=== PATIENT | female | born 1960 | race Caucasian/White ===

== ENCOUNTER → 2019-03-31 07:49 | Outpatient (CLI) | payer OTHER, SELFPAY ==
--- NOTE | 2019-03-31 07:50 | BI_ITS ---
MAMMOGRAPHY - BILATERAL SCREENING REASON FOR EXAM: Female, 58 years old. Routine annual screening examination. PERTINENT HISTORY: Grandmother with breast cancer. TECHNIQUE: Digital bilateral breast priscila (3D mammographic acquisition) in the CC and MLO projections. 2-D mediolateral oblique (MLO) and craniocaudad (CC) views of both breasts were obtained. CAD: Full Field Digital Mammography with Computer Added Detection was performed. COMPARISON: Comparison is made with prior outside examination dated May 05, 2016 FINDINGS: Breast Composition: There are scattered areas of fibroglandular density. There are no dominant masses or suspicious calcifications. Stable densely calcified right retroareolar nodular density. This is in keeping with a calcifying fibroadenoma. No other significant abnormalities are identified. There has been no significant change since the prior study. BI/SCREEN MAMM (CAD) W/PRISCILA BILAT IMPRESSION: Stable bilateral screening mammogram. Yearly follow-up mammogram recommended. (A) ASSESSMENT CATEGORY: BIRADS Category 2: Benign. A letter regarding these results will be sent to the patient by the facility within 30 days. Approximately 10% of breast cancers are not detected by mammography. A normal mammogram should not delay biopsy of a clinically suspicious abnormality. [id number] Electronically Signed: Thaddeus May, at 9:07 EST , Service support ,
[2019-04-03 16:08] LABS: HPV Genotype 16, Aptima Negative (Negative)
[2019-04-03 17:03] LABS: HPV APTIMA, High Risk Positive (Negative); HPV Genotype 18,45 Aptima Negative (Negative)
== END ==
PROVIDERS: Family Provider Family Medicine; PCP Internal Medicine; Referring Provider Obstetrics & Gynecology; Visit Provider Obstetrics & Gynecology
DX: Z12.31 Encounter for screening mammogram for malignant neoplasm of breast (principal); Z12.4 Encounter for screening for malignant neoplasm of cervix
CPT/HCPCS: 77063; 77067; 87624; 88175; G0145

== ENCOUNTER 2019-09-23 07:25 | Day surgery (SDC) | payer OTHER, SELFPAY ==
[2019-03-31 08:53] VITALS: BMI 37.0
--- NOTE | 2019-09-23 | COLBX_PTH ---
PATIENT: ALFONSO VERDUGO LOC: EN U#:[id number] AGE/SX: 59/F ROOM: RE09/23/[address]: Dr. Oh Infante MD : 1960 BED: DIS: 09/23/2019 SPEC #: [id number] RECD: 09/23/19 13:03 STATUS: CASS ERICA #: [id number] MATA: 09/23/19 00:[address]: Oh Infante DEPT: SURGICAL PATHOLOGY RECD BY: Otilio Mera ENTERED: 09/23/19 13:04 SP TYPE: COLON BX OT DR: Dr. Mirian Payton MD Tissues: A - Sigmoid colon biopsy B - Rectum, NOS Procedures: Surgery Specimen Level IV HEADER OPERATION: Colonoscopy - open access (MAC) PRE-OP DIAGNOSIS: Screening TISSUE SUBMITTED: A - Proximal sigmoid polyp, B - Proximal rectum polyp MICROSCOPIC DIAGNOSIS A. Proximal sigmoid colon polyp, biopsy: Tubular adenoma. B. Proximal rectal polyp, biopsy: Fragments of tubular adenoma. AM:denys 09/24/19 MICROSCOPIC DESCRIPTION Slides are reviewed. GROSS DESCRIPTION A - Received in fixative is one container labeled with the patient's name and designated proximal sigmoid polyp. The specimen consists of a dumont-pink polyp measuring 0.5 x 0.5 x 0.3 cm. The specimen is totally submitted in one cassette. B - Received in fixative is one container labeled with the patient's name and designated proximal rectal polyp. The specimen consists of two irregular fragments of light dumont soft tissue that in aggregate measure 0.7 x 0.3 x 0.1 cm. The specimen is totally submitted in one cassette. / SJ:denys 09/23/19 TC:5 CPT: 14469 x2
[2019-09-23 07:42] VITALS: BP 120/65; PULSE 68; RESP 15; TEMP 36.3; O2SAT 100; BMI 32.3
[2019-09-23] MEDS: Lactated Ringers 1,000 ML 100 ML IV (07:54)
--- NOTE | 2019-09-23 08:47 | PCM.HP.STD ---
Problem List (1) Screening for intestinal cancer Status: Acute History of Present Illness Date of Admission: 09/23/19 The patient is a 59 year old F who presents for screening colonoscopy today. She has never had a previous exam. She denies bright red blood per rectum or melena. There is no family history of colon cancer. She otherwise enjoys good health. Past Medical History Medical History: Medical History (Last Reviewed 03/31/19 @ 08:48 by Pauly Montgomery) Depression with anxiety (Acute) F41.8 Goiter (Acute) E04.9 Allergies Penicillins Adverse Reaction (Verified 09/23/19 07:41) Rash Sulfa (Sulfonamide Antibiotics) Adverse Reaction (Verified 09/23/19 07:41) Rash Home Medications: Ambulatory Orders Medication Instructions Recorded Levothyroxine Sodium 88 mcg PO DAILY 01/29/14 venlafaxine 75 mg capsule,extended 75 mg PO DAILY #30 cap 03/31/19 release 24 hr Surgical History: Surgical History (Last Updated 03/31/19 @ 08:49 by Pauly Montgomery) S/P dilation and curettage Z98.890 x2 S/P gastric surgery Z98.890 sleeve Status post breast reduction Z98.890 s/p ablation Smoking Status: Never smoker Tobacco Use: Non-smoker Review of Systems Constitutional: Denies: Chills, Fever Cardiovascular: Denies: Chest Pain Respiratory: Denies: Cough, Shortness of Breath Gastrointestinal: Denies: Abdominal Pain, Melena Endocrine: Denies: Change in Body Habitus VTE Information - Inpt Only VTE Present on Admission: No Patient Problems: Active and Suspected Problems (Last Reviewed 03/31/19 @ 08:48 by Pauly Montgomery) Screening for intestinal cancer (Acute) - Physical Exam Vitals/I&O's: Vital Signs Temp Pulse Resp BP Pulse Ox 97.3 F L 68 15 120/65 100 09/23/19 07:42 09/23/19 07:42 09/23/19 07:42 09/23/19 07:42 09/23/19 07:42 Oxygen Delivery Method Room Air Weight: 200 lb 6.4 oz Body Mass Index (BMI) 32.3 General: Alert, Oriented x3, Cooperative, No apparent distress HEENT: Atraumatic Lungs: Clear to auscultation, Normal air movement Cardiovascular: Regular rate, Regular Rhythm Abdomen: Bowel Sounds Present, Soft, Non Tender Extremities: No Calf Tenderness Psych/Mental Status: Normal Affect Current Medications Lactated Ringer's () 1,000 mls @ 100 mls/hr IV .Q10H SUKHDEV Last Admin: 09/23/19 07:54 Dose: 100 mls/hr Documented by: Assessment/Plan All Active Problems (Last Reviewed 03/31/19 @ 08:48 by Pauly Montgomery) Screening for intestinal cancer (Acute) HPV test positive (Acute) Depression with anxiety (Acute) Goiter (Acute) I recommended the patient a screening colonoscopy with possible biopsy or polypectomy is indicated. She is aware of the technique, benefit, risk, alternatives. She presents via open access today. We will proceed as noted. Oh Infante M.D., F.A.C.S. Procedure Criteria Procedure Type: Elective COVID Risk Discussion: The surgeon/proceduralist and patient have discussed in detail the risk of exposure to and/or potential harm posed by the COVID-19 virus with having a surgery/procedure at this time versus the risk of delaying the surgery/procedure. It is not possible to know either the risk of delaying the surgery or procedure or chance of getting an infection with perfect accuracy, but a joint decision was made between the patient and the surgeon/proceduralist to proceed at this time with the scheduled surgery/procedure as indicated on the consent form.
[2019-09-23 09:24] VITALS: BP 120/65; BP 98/58; PULSE 57; RESP 15; TEMP 36.1; O2SAT 99
--- NOTE | 2019-09-23 09:25 | OP.COLON_ITS ---
Patient Name: Nuvia Rubio Procedure Date: 09/23/2019 8:46 AM Date of : 1960 Age: 59 Procedure: Colonoscopy Indications: Screening for colorectal malignant neoplasm Providers: Oh Infante MD Referring MD: Mirian Payton Medicines: See the Anesthesia note for documentation of the administered medications Patient Profile: Last Colonoscopy: none. The patient's first colonoscopy is today. Complications: No immediate complications. Procedure: Pre-Anesthesia Assessment: - Prior to the procedure, a History and Physical was performed, and patient medications and allergies were reviewed. The patient's tolerance of previous anesthesia was also reviewed. The risks and benefits of the procedure and the sedation options and risks were discussed with the patient. All questions were answered, and informed consent was obtained. Prior Anticoagulants: The patient has taken no previous anticoagulant or antiplatelet agents. ASA Grade Assessment: I - A normal, healthy patient. After reviewing the risks and benefits, the patient was deemed in satisfactory condition to undergo the procedure. After I obtained informed consent, the scope was passed under direct vision. Throughout the procedure, the patient's blood pressure, pulse, and oxygen saturations were monitored continuously. The pediatric colonoscope was introduced through the anus and advanced to the cecum, identified by appendiceal orifice and ileocecal valve. The colonoscopy was performed without difficulty. The patient tolerated the procedure well. The quality of the bowel preparation was adequate to identify polyps. The ileocecal valve and the appendiceal orifice were photographed. Scope In: 8:59:47 AM Scope Withdrawal Time 0 hours 15 minutes 13 seconds Scope Out: 9:20:09 AM Total Procedure Duration Time 0 hours 20 minutes 22 seconds Findings: Hemorrhoids were found on perianal exam. A 7 mm polyp was found in the proximal sigmoid colon. The polyp was sessile. The polyp was removed with a hot snare. Resection and retrieval were complete. A 5 mm polyp was found in the rectum. The polyp was sessile. The polyp was removed with a hot snare. Resection and retrieval were complete. Scattered diverticula were found in the sigmoid colon. Impression: - Hemorrhoids found on perianal exam. - One 7 mm polyp in the proximal sigmoid colon, removed with a hot snare. Resected and retrieved. - One 5 mm polyp in the rectum, removed with a hot snare. Resected and retrieved. - Diverticulosis in the sigmoid colon. Recommendation: - Discharge patient to home. - Resume previous diet. - Continue present medications. - Repeat colonoscopy in 5 years for surveillance based on pathology results. - Telephone my office for pathology results in 1 week. Procedure Code(s): --- Professional --- 71705, Colonoscopy, flexible; with removal of tumor(s), polyp(s), or other lesion(s) by snare technique Diagnosis Code(s): --- Professional --- Z12.11, Encounter for screening for malignant neoplasm of colon K64.9, Unspecified hemorrhoids D12.5, Benign neoplasm of sigmoid colon K62.1, Rectal polyp K57.30, Diverticulosis of large intestine without perforation or abscess without bleeding CPT copyright 2017 [employer]. All rights reserved. The codes documented in this report are preliminary and upon doll wigs hackler review may be revised to meet current compliance requirements. Oh Infante MD 09/23/2019 9:25:15 AM This report has been signed electronically. Number of Addenda: 0 Note Initiated On: 09/23/2019 8:46 AM
--- NOTE | 2019-09-23 09:25 | OP.CCLET_ITS ---
09/23/2019 Mirian Payton Re : Colonoscopy procedure for Nuvia Rubio Dear Tata This procedure was performed on Monday, September 23, 2019. My impressions and recommendations are as follows: Impressions : - Hemorrhoids found on perianal exam. - One 7 mm polyp in the proximal sigmoid colon, removed with a hot snare. Resected and retrieved. - One 5 mm polyp in the rectum, removed with a hot snare. Resected and retrieved. - Diverticulosis in the sigmoid colon. Recommendations : - Discharge patient to home. - Resume previous diet. - Continue present medications. - Repeat colonoscopy in 5 years for surveillance based on pathology results. - Telephone my office for pathology results in 1 week. My findings are described in the full procedure note, which is enclosed. If I can be of further assistance, please feel free to contact me at Doctor phone number(s): Work: . Sincerely, Oh Infante MD 09/23/2019 9:25:15 AM This report has been signed electronically.
[2019-09-23 09:29] VITALS: BP 114/48; BP 120/65; PULSE 55; RESP 16; O2SAT 99
[2019-09-23 09:36] VITALS: BP 110/61; BP 120/65; PULSE 55; RESP 16; O2SAT 100
[2019-09-23 09:37] VITALS: BP 110/60; BP 120/65; PULSE 53; RESP 16; TEMP 36.1; O2SAT 100
[2019-09-23 10:15] VITALS: BP 120/65
== END 2019-09-23 10:25 | disposition home or self-care (01) ==
LOC: EN 07:25 → AC 07:26
PROVIDERS: Anesthesiology; PCP Internal Medicine; Referring Provider Internal Medicine; Visit Provider Surgery
PROC: 0DJD8ZZ Inspection of Lower Intestinal Tract, Via Natural or Artificial Opening Endoscopic (ICD-10-PCS; CPT 45378; principal; 2019-09-23 08:25)
DX: Z12.11 Encounter for screening for malignant neoplasm of colon (principal); D12.5 Benign neoplasm of sigmoid colon; D12.8 Benign neoplasm of rectum; K57.30 Diverticulosis of large intestine without perforation or abscess without bleeding; K64.9 Unspecified hemorrhoids; E04.9 Nontoxic goiter, unspecified; Z20.828 Contact with and (suspected) exposure to other viral communicable diseases
CPT/HCPCS: 45385; 87635; 88305; 94799; J7120; U0003

== ENCOUNTER → 2020-08-31 13:21 | Outpatient (CLI) | payer OTHER, SELFPAY ==
[2020-07-08 11:47] VITALS: BMI 32.3
--- NOTE | 2020-08-31 13:22 | BI_ITS ---
MAMMOGRAPHY - BILATERAL SCREENING REASON FOR EXAM: Female, 60 years old. Routine annual screening examination. PERTINENT HISTORY: Grandmother with breast cancer. Remote bilateral breast reduction surgery. TECHNIQUE: Digital bilateral breast priscila (3D mammographic acquisition) in the CC and MLO projections. 2-D mediolateral oblique (MLO) and craniocaudad (CC) views of both breasts were obtained. CAD: Full Field Digital Mammography with Computer Added Detection was performed. COMPARISON: Comparison is made with prior study dated 03/31/2019. FINDINGS: Breast Composition: The breasts are heterogeneously dense, which may obscure small masses. There are no dominant masses or suspicious calcifications. Stable densely calcified right retroareolar areolar nodule in keeping with calcifying fibroadenoma. Small benign-appearing bilateral axillary lymph nodes. No other significant abnormalities are identified. There has been no significant change since the prior study. BI/SCRN MAMM (CAD)W/PRISCILA BILAT IMPRESSION: Stable bilateral screening mammogram. Yearly follow-up mammogram recommended. (A) ASSESSMENT CATEGORY: BIRADS Category 2: Benign. A letter regarding these results will be sent to the patient by the facility within 30 days. Approximately 10% of breast cancers are not detected by mammography. A normal mammogram should not delay biopsy of a clinically suspicious abnormality. [id number] Electronically Signed: Thaddeus May MD at 14:01 EDT , Service support ,
[2020-09-07 03:07] LABS: HPV Genotype 16, Aptima Negative (Negative)
[2020-09-07 08:18] LABS: HPV APTIMA, High Risk Positive (Negative); HPV Genotype 18,45 Aptima Negative (Negative)
== END ==
PROVIDERS: PCP Internal Medicine; Referring Provider Obstetrics & Gynecology; Visit Provider Obstetrics & Gynecology
DX: Z12.31 Encounter for screening mammogram for malignant neoplasm of breast (principal); Z12.4 Encounter for screening for malignant neoplasm of cervix; Z80.3 Family history of malignant neoplasm of breast
CPT/HCPCS: 77063; 77067; 87624; 88175; G0145

== ENCOUNTER → 2021-01-11 | Outpatient (CLI) | payer OTHER, SELFPAY | END | disposition home or self-care (01) | LOC: LABSPEC 16:03 | PROVIDERS: PCP Internal Medicine; Visit Provider Otolaryngology Otolaryngology/Facial Plastic Surgery | DX: Z20.822 Contact with and (suspected) exposure to COVID-19 (principal) | CPT/HCPCS: 87635; U0005; U0003 ==

== ENCOUNTER → 2021-09-30 | Outpatient (CLI) | payer OTHER, SELFPAY ==
--- NOTE | 2021-09-30 10:34 | BI_ITS ---
MAMMOGRAPHY - BILATERAL SCREENING REASON FOR EXAM: Female, 61 years old. Routine annual screening examination. PERTINENT HISTORY: Grandmother with breast cancer. Remote history of bilateral breast reduction surgery. TECHNIQUE: Digital bilateral breast priscila (3D mammographic acquisition) in the CC and MLO projections. 2-D mediolateral oblique (MLO) and craniocaudad (CC) views of both breasts were obtained. CAD: Full Field Digital Mammography with Computer Added Detection was performed. COMPARISON: Screening mammogram from 08/31/2020, 03/31/2019. FINDINGS: Breast Composition: The breasts are heterogeneously dense, which may obscure small masses. Finding 1: There is an asymmetry in the right inferior breast, posterior depth near the axilla approximately 14 cm posterior to the nipple seen only on MLO views and best seen on 3-D priscila. Further assessment with spot compression views if possible and ultrasound if needed recommended. Finding 2: There is an asymmetry in the right central slightly inferior breast, posterior depth approximately 11 cm posterior to the nipple seen only on MLO views and best seen on 3-D priscila. Further assessment with spot compression views if possible and ultrasound if needed recommended. Stable benign-appearing axillary lymph nodes. Stable scattered benign-appearing calcifications. No other significant abnormalities are identified. BI/SCRN MAMM (CAD)W/PRISCILA BILAT IMPRESSION: Further imaging evaluation recommended, as described above. (E) ASSESSMENT CATEGORY: BIRADS Category 0: Incomplete. Need additional imaging evaluation. A letter regarding these results will be sent to the patient by the facility within 30 days. Approximately 10% of breast cancers are not detected by mammography. A normal mammogram should not delay biopsy of a clinically suspicious abnormality. Electronically Signed: Yung Price, at 8:47 EDT ,
[2021-10-07 11:34] LABS: HPV APTIMA, High Risk Positive (Negative)
== END | disposition home or self-care (01) ==
PROVIDERS: PCP Internal Medicine; Referring Provider Obstetrics & Gynecology; Visit Provider Obstetrics & Gynecology
DX: Z12.31 Encounter for screening mammogram for malignant neoplasm of breast (principal); Z12.4 Encounter for screening for malignant neoplasm of cervix
CPT/HCPCS: 77063; 77067; 87624; 88175; G0145

== ENCOUNTER → 2021-10-07 | Outpatient (CLI) | payer OTHER, SELFPAY ==
--- NOTE | 2021-10-07 09:23 | BI_ITS ---
MAMMOGRAPHY - UNILATERAL DIAGNOSTIC: RIGHT BREAST REASON FOR EXAM: Female, 61 years old. Abnormal screening mammogram. PERTINENT HISTORY: Grandmother with breast cancer. History of bilateral breast reduction surgery. TECHNIQUE: Compression spot radiographs of the right breast were obtained. CAD: Full Field Digital Mammography with Computer Added Detection was performed. COMPARISON: Comparison is made with prior study 09/30/2021. FINDINGS: Breast Composition: The breasts are heterogeneously dense, which may obscure small masses. There are no dominant masses or suspicious calcifications. No other significant abnormalities are identified. BI/DIAG MAMM W/CAD, UNILAT IMPRESSION: Negative unilateral diagnostic mammogram. Yearly followup mammogram recommended. (A) ASSESSMENT CATEGORY: BIRADS Category 1: Negative. A letter regarding these results will be sent to the patient by the facility within 30 days. Approximately 10% of breast cancers are not detected by mammography. A normal mammogram should not delay biopsy of a clinically suspicious abnormality. Electronically Signed: Thaddeus May MD at 10:07 EDT ,
== END | disposition home or self-care (01) ==
LOC: OPBI 09:22
PROVIDERS: PCP Internal Medicine; Visit Provider Obstetrics & Gynecology
DX: R92.8 Other abnormal and inconclusive findings on diagnostic imaging of breast (principal)
CPT/HCPCS: 77065

== ENCOUNTER → 2022-10-05 | Outpatient (CLI) | payer OTHER, SELFPAY ==
[2022-10-11 15:08] LABS: HPV APTIMA, High Risk Positive (Negative)
== END | disposition home or self-care (01) ==
PROVIDERS: PCP Internal Medicine; Visit Provider Obstetrics & Gynecology
DX: Z12.4 Encounter for screening for malignant neoplasm of cervix (principal)
CPT/HCPCS: 87624; 88175; G0145

== ENCOUNTER → 2022-11-23 | Outpatient (CLI) | payer OTHER, SELFPAY ==
--- NOTE | 2022-11-23 10:13 | BI_ITS ---
MAMMOGRAPHY - BILATERAL SCREENING REASON FOR EXAM: Female, 62 years old. Routine annual screening examination. PERTINENT HISTORY: Non-contributory. TECHNIQUE: Digital bilateral breast priscila (3D mammographic acquisition) in the CC and MLO projections. 2-D mediolateral oblique (MLO) and craniocaudad (CC) views of both breasts were obtained. CAD: Full Field Digital Mammography with Computer Added Detection was performed. COMPARISON: Comparison is made with prior study done September 30, 2021 and October 07, 2021. FINDINGS: Breast Composition: The breasts are heterogeneously dense, which may obscure small masses. There are no dominant masses or suspicious calcifications. Stable densely calcified nodule in the retroareolar region of the right breast. No other significant abnormalities are identified. There has been no significant change since the prior study. BI/SCRN MAMM (CAD)W/PRISCILA BILAT IMPRESSION: Stable bilateral screening mammogram. Yearly follow-up mammogram recommended. (A) ASSESSMENT CATEGORY: BIRADS Category 2: Benign. A letter regarding these results will be sent to the patient by the facility within 30 days. Approximately 10% of breast cancers are not detected by mammography. A normal mammogram should not delay biopsy of a clinically suspicious abnormality. [id number] Electronically Signed: Thaddeus May MD at 12:24 EDT ,
== END | disposition home or self-care (01) ==
LOC: OPBI 10:12
PROVIDERS: PCP Internal Medicine; Referring Provider Obstetrics & Gynecology; Visit Provider Obstetrics & Gynecology
DX: Z12.31 Encounter for screening mammogram for malignant neoplasm of breast (principal)
CPT/HCPCS: 77063; 77067

== ENCOUNTER → 2022-12-19 | Outpatient (CLI) | payer OTHER, SELFPAY ==
[2022-12-19 10:11] LABS: Absolute Lymphocyte Count 1.93 X10^3/uL (0.83-4.51); Absolute Neutrophil Count 2.8 X10^3/uL (2.0-7.7); Basophil# 0.04 X10^3/uL; Basophil% 0.8 % (0-1); Eosinophils% 1.9 % (0-5); Hematocrit 43.9 % (37-47); Hemoglobin 13.8 g/dL (12.0-15.0); Lymphocyte # 1.93 X10^3/ul (0.83-4.51); Lymphocyte % 36.9 % (19-41); Mean Corp Hgb Conc 31.4 g/dL (32-36); Mean Corpuscular Hgb 27.4 pg (27.0-32.0); Mean Corpuscular Volume 87.1 fL (81-99); Mean Platelet Vol. 10.4 fl (6.2-12.0); Monocyte# 0.34 X10^3/uL; Monocyte% 6.5 % (0-10); NRBC Flagged by Analyzer 0 % (0-5); Neutrophil # 2.81 X10^3/uL (2.7-7.7); Neutrophil % 53.7 % (47-70); Platelet Count 318 K/mm3 (150-450); RBC Distribution Width SD 48.2 fl (35.1-43.9); Red Blood Count 5.04 M/mm3 (4.2-5.4); White Blood Count 5.2 K/mm3 (4.4-11.0)
--- NOTE | 2022-12-19 10:18 | EKG12_ITS ---
Test Reason : PRE-OP Blood Pressure : / mmHG Vent. Rate : 074 BPM Atrial Rate : 074 BPM P-R Int : 144 ms QRS Dur : 096 ms QT Int : 400 ms P-R-T Axes : 009 -50 044 degrees QTc Int : 444 ms Normal sinus rhythm Left anterior fascicular block Abnormal ECG Confirmed by MAYELIN MA, USHA ([id number]), scientific publications editor KIM VARGAS ([id number]) on 12/19/2022 1:59:16 PM Also confirmed by EDMOND MA, NANO ([id number]), scientific publications editor KIM VARGAS ([id number]) on 12/19/2022 2:01:28 PM Referred By: Rose Marie Brush Confirmed By:NANO PRUITT MD
[2022-12-19 10:30] LABS: Hemoglobin A1c 5.6 % (3.8-5.6)
[2022-12-19 10:36] LABS: ALB/GLOB Ratio 0.8 RATIO (0.9-2.4); AST(SGOT) 11 U/L (15-37); Alanine Aminotransfer ALT/SGPT 23 U/L (13-56); Albumin, Serum 3.6 g/dL (3.2-5.0); Alkaline Phosphatase 111 U/L (45-117); Anion Gap 3 (5-15); BUN 13 mg/dL (7-18); BUN/Creat Ratio 17.6 RATIO (10-20); Calcium,Total 8.7 mg/dL (8.5-10.1); Chloride 107 mmol/L (98-107); Creatinine, Serum 0.74 mg/dL (0.55-1.02); EST Glomerular Filtration Rate 85 mL/min (>60); Est Glom Filt Rate - Afr Amer 103 mL/min (>60); Globulin 4.3 g/dL (2.2-4.2); Glucose 94 mg/dL (74-106); Potassium 3.9 mmol/L (3.5-5.1); Protein, Total 7.9 g/dL (6.4-8.2); Sodium Level 138 mmol/L (136-145); T4 Free Direct 1.55 ng/dL (0.76-1.46); Thyroid Stim Hormone (TSH) 1.45 uIU/mL (0.358-3.74)
[2022-12-19 10:49] LABS: Vitamin D,25 Hydroxy 31.4 ng/mL
== END | disposition home or self-care (01) ==
LOC: PSN 10:17
PROVIDERS: PCP Internal Medicine; Referring Provider Obstetrics & Gynecology; Visit Provider Obstetrics & Gynecology
DX: E04.9 Nontoxic goiter, unspecified (principal); I44.4 Left anterior fascicular block; Z68.37 Body mass index [BMI] 37.0-37.9, adult
CPT/HCPCS: 36415; 80053; 82306; 83036; 84439; 84443; 85025; 93005

== ENCOUNTER → 2023-02-07 | Outpatient (CLI) | payer OTHER, SELFPAY ==
--- NOTE | 2023-02-07 08:53 | ECHOD_ITS ---
Reason For Study: ABNORMAL EKG Procedure This was a 2D Doppler, Color Flow transthoracic echocardiogram. Myocardial strain analysis was performed in this exam to aid in the assessment of cardiac function. Exam performed in department. Left Ventricle Normal LV size. The estimated ejection fraction is 50 %. There is mild global hypokinesis of the left ventricle. Right Ventricle Normal RV size. Normal systolic function. Atria Normal left atrium. Normal right atrium. Mitral Valve Normal mitral valve. Tricuspid Valve Normal tricuspid valve. Aortic Valve Normal aortic valve. Trisinus/trileaflet aortic valve. Pulmonic Valve Normal pulmonic valve. Great Vessels Normal aortic root. The pulmonary artery is normal size. Normal inferior vena cava. Pericardium/Pleural No pericardial effusion. MMode/2D Measurements & Calculations LVIDd: 5.8 cm IVSd: 0.73 cm LVOT diam: 2.1 cm LVIDs: 4.2 cm LVPWd: 0.79 cm LVOT area: 3.3 cm2 RVDd: 3.4 cm FS: 27.3 % Ao root diam: 3.2 cm LAV(MOD-bp): 75.5 ml LVAd ap4: 28.6 cm2 LAV(MOD-bp) Indexed: 36.6 ml/m2 LVLd ap4: 7.2 cm LAV(MOD-sp2): 89.7 ml EDV(MOD-sp4): 95.8 ml LAV(MOD-sp4): 63.3 ml EDV(sp4-el): 96.1 ml LVAs ap4: 18.4 cm2 LVLs ap4: 6.1 cm ESV(MOD-sp4): 47.9 ml ESV(sp4-el): 47.3 ml EF(MOD-sp4): 50.0 % EF(sp4-el): 50.8 % LVAd ap2: 28.3 cm2 SV(MOD-sp4): 47.9 ml SV(MOD-sp2): 46.9 ml LVLd ap2: 7.8 cm EDV(MOD-sp2): 87.7 ml EDV(sp2-el): 87.6 ml LVAs ap2: 18.1 cm2 LVLs ap2: 6.9 cm ESV(MOD-sp2): 40.8 ml ESV(sp2-el): 40.4 ml EF(MOD-sp2): 53.5 % SV(sp4-el): 48.9 ml LA dimension(2D): 3.6 cm LA A4 area: 21.9 cm2 RA A4 area: 15.8 cm2 TAPSE: 2.5 cm Time Measurements MV dec time: 0.14 sec Doppler Measurements & Calculations MV E max casper: 89.4 cm/sec Lat Peak E' Casper: 10.6 cm/sec Med Peak E' Casper: 8.9 cm/sec MV A max casper: 82.6 cm/sec E/E' lat: 8.5 E/E' med: 10.0 MV E/A: 1.1 Ao V2 max: 182.8 cm/sec LV V1 max: 104.8 cm/sec MV dec slope: 654.2 cm/sec2 Ao max P.4 mmHg LV V1 max P.4 mmHg Ao V2 mean: 126.6 cm/sec LV V1 mean P.9 mmHg Ao mean P.3 mmHg LV V1 mean: 82.8 cm/sec Ao V2 VTI: 48.4 cm LV V1 VTI: 28.6 cm AV (velocity ratio): 0.59 JIM(I,D): 2.0 cm2 JIM(V,D): 1.9 cm2 SV(LVOT): 95.0 ml PA V2 max: 67.0 cm/sec PA max PG (full): 0.67 mmHg ECHO/Echo Complete Interpretation Summary Normal LV size. The estimated ejection fraction is 50 %. There is mild global hypokinesis of the left ventricle. Structurally normal valves. The global longitudinal strain is normal. The globa l longitudinal strain = -18.9 % (normal). Ordering Physician: JOSE ENRIQUE MCCARTHY Referring Physician: MILLIE VIERA Performed By: Mary Mares RDCS
== END | disposition home or self-care (01) ==
PROVIDERS: PCP Internal Medicine
DX: Z13.6 Encounter for screening for cardiovascular disorders (principal); R94.31 Abnormal electrocardiogram [ECG] [EKG]
CPT/HCPCS: 93306

== ENCOUNTER → 2023-03-01 | Outpatient (CLI) | payer OTHER, SELFPAY ==
--- OUTSIDE RECORDS SUMMARY | 2023-03-01 10:58 | XMS RPT_ITS | CCD ---
Author Name Unknown Address [address] [place] [address] Organization [facility] Care Team Providers Care Thread Tool Grinder Set Up Operator Name Role Phone Tata MA, Butros Primary Care Provider Tata MA, Butros Primary Care Provider Kang MA, Chete Unavailable [phone] MILLIE PAYTON MD Attending Unavailable LATOUF, MILLIE MA Consulting Unavailable LATOUF, MILLIE MA Primary Care Unavailable LATOUF, MILLIE MA Admitting Unavailable PROVIDER, UNKNOWN Consulting Unavailable PROVIDER, UNKNOWN Consulting Unavailable PROVIDER, UNKNOWN Consulting Unavailable LATOUF, BUTROS Primary Care Unavailable SHAHANA-NLIAM, CHETE Referring Unavailable SHAHANA-NLIAM, CHETE Attending Unavailable LATOUF, BUTROS Referring Unavailable LATOUF, BUTROS Primary Care Unavailable SHAHANA-NLIAM, CHETE Referring Unavailable LATOUF, BUTROS Primary Care Unavailable ROMERO MCKENNA Referring Unavailable LATOUF, BUTROS Primary Care Unavailable Allergies Allergy Classification Reported Allergen(s) Allergy Type Date of Onset Reaction(s) Facility (2 sources) Penicillins; Translations: [PENICILLINS] Drug Intolerance 6 Rash [facility] (9 sources) Sulfonamides (Antibiotic); Translations: [SULFA (SULFONAMIDE ANTIBIOTICS)] Drug Allergy 3 Rash, Itching [facility] (7 sources) Penicillins Drug Intolerance 6 Rash [facility] (1 source) Penicillin Drug Allergy [facility] (1 source) Sulfonamides (Antibiotic) Drug allergy (disorder) [facility] Medications Completed/Discontinued Medications Medication Drug Class(es) Dates Sig (Normalized) Sig (Original) acetaminophen 325 mg / HYDROcodone bitartrate 5 mg oral tablet (4 sources) Opioid Agonist Start: 11-20-2022 HYDROcodone-acetam inophen (NORCO) 5-325 mg per tablet [id number] 200 actuat albuterol 0.09 mg/actuat metered dose inhaler (1 source) beta2-Adrenergic Agonist Start: 11-28-2020 End: 08-09-2021 take 2 puff(s) by inhalation every four hours as needed for wheezing albuterol HFA (VENTOLIN HFA) 90 mcg/actuation inhaler Inhale 2 Puffs as instructed every 4 hours as needed for wheezing/shortness of breath. 18 g 0 11/28/2020 08/09/2021 Discontinued (Discontinued by another Health Care Provider) Problems Active Problems Problem Classification Problem Date Documented Date Episodic/Chronic Cardiac dysrhythmias (1 source) Tachycardia, unspecified; Translations: [Fast heart beat] Onset: 12-26-2022 Episodic Disorders of lipid metabolism (1 source) Mixed hyperlipidemia; Translations: [Mixed hyperlipidemia] 12-26-2022 Chronic Menopausal disorders (8 sources) Abnormal perimenopausal bleeding; Translations: [Excessive bleeding in the premenopausal period] Onset: 11-01-2011 11-01-2011 Chronic Other nutritional; endocrine; and metabolic disorders (1 source) Obesity caused by energy imbalance; Translations: [Other obesity due to excess calories] 12-26-2022 Chronic Other screening for suspected conditions (not mental disorders or infectious disease) (5 sources) Electrocardiogram abnormal; Translations: [Abnormal electrocardiogram [ECG] [EKG]] Onset: 12-26-2022 12-26-2022 Episodic Thyroid disorders (1 source) Hypothyroidism, unspecified; Translations: [Hypothyroidism, unspecified] Onset: 01-05-2023 Chronic Transient cerebral ischemia (3 sources) Cerebral ischemia; Translations: [Transient cerebral ischemic attack, unspecified] Onset: 02-21-2022 Chronic Past or Other Problems Problem Classification Problem Date Documented Date Episodic/Chronic Blindness and vision defects (3 sources) Diplopia; Translations: [Diplopia] Onset: 02-21-2022 Episodic Residual codes; unclassified (8 sources) History of endometrial ablation; Translations: [Other specified postprocedural states] Onset: 08-07-2011 08-07-2011 Episodic Sexually transmitted infections (not HIV or hepatitis) (8 sources) Human papillomavirus deoxyribonucleic acid test positive, high risk on cervical specimen; Translations: [Cervical high risk human papillomavirus (HPV) DNA test positive] Onset: 08-12-2013 08-12-2013 Episodic Results Test Name Value Interpretation Reference Range Facil ity Vital Signs Date Time Vital Sign Value Performing Clinician Megan germain 12-26-2022 09:14-0500 Diastolic blood pressure 94 mm[Hg] Vinh Kapadia MD Work Phone: [facility] 12-26-2022 09:14-0500 Systolic blood pressure 155 mm[Hg] Vinh Kapadia MD Work Phone: [facility] 12-26-2022 09:06-0500 Body height 167.6 cm Vinh Kapadia MD Work Phone: [facility] 12-26-2022 09:06-0500 Body weight 99.79 kg Vinh Kapadia MD Work Phone: [facility] 12-26-2022 09:06-0500 Heart rate 71 /min Vinh Kapadia MD Work Phone: [facility] 12-26-2022 09:06-0500 SaO2% (BldA) [Mass fraction] 98 % Vinh Kapadia MD Work Phone: [facility] 08-09-2021 10:14-0400 Body height 167.6 cm Romero Mckenna MD Work Phone: [facility] 08-09-2021 10:14-0400 Body temperature 97.3 [degF] Romero Mckenna MD Work Phone: [facility] 08-09-2021 10:14-0400 Body weight 94.35 kg Romero Mckenna MD Work Phone: [facility] 08-09-2021 10:14-0400 Diastolic blood pressure 73 mm[Hg] Romero Mckenna MD Work Phone: [facility] 08-09-2021 10:14-0400 Heart rate 64 /min Romero Mckenna MD Work Phone: [facility] 08-09-2021 10:14-0400 Respiratory rate 15 /min Romero Mckenna MD Work Phone: [facility] 08-09-2021 10:14-0400 SaO2% (BldA) [Mass fraction] 99 % Romero Mckenna MD Work Phone: [facility] 08-09-2021 10:14-0400 Systolic blood pressure 144 mm[Hg] Romero Mckenna MD Work Phone: [facility] Encounters Encounter Date Encounter Type Care Provider Facility Start: 01-05-2023 ambulatory MILLIE MA [facility] Start: 01-01-2023 Telephone encounter Vinh Aguilar MD Work Phone: Cardiology Procedures Date Procedure Procedure Detail Performing Clinician Start: 02-21-2022 Mri brain brain stem w/o contrast material Romero Mckenna MD Work Phone: Start: 08-05-2021 Adult depression scr eening assessment Romero Mckenna MD Work Phone: Start: 05-05-2016 Mammography Romero Mckenna MD Work Phone: Plan of Treatment Date Care Activity Detail Author Start: 10-20-2022 Covid-19 Vaccine ( season) Covid-19 Vaccine ( season) [facility] Start: 10-20-2022 Influenza vaccination [facility] Start: 08-05-2022 Adult depression screening assessment DEPRESSION SCREENING [facility] Start: 2022 RSV Vaccine (1 - 1-dose 60+ series) RSV Vaccine (1 - 1-dose 60+ series) [facility] Start: 02-19-2022 DEPRESSION ASSESSMENT DEPRESSION ASSESSMENT [facility] Start: 10-20-2021 Influenza vaccination [facility] Start: 09-23-2020 COVID-19 VACCINE (3 - Booster for Moderna series) COVID-19 VACCINE (3 - Booster for Moderna series) [facility] Start: 06-18-2020 COVID-19 VACCINE (3 - Booster for Moderna series) COVID-19 VACCINE (3 - Booster for Moderna series) [facility] Start: 04-23-2020 COVID-19 VACCINE (2 - Moderna series) COVID-19 VACCINE (2 - Moderna series) [facility] Start: 03-18-2020 HPV TESTING HPV TESTING [facility] Start: 05-11-2017 PAP TESTING PAP TESTING [facility] Start: 05-05-2017 Mammography [facility] Start: 2012 SHINGRIX VACCINE (1 of 2) SHINGRIX VACCINE (1 of 2) [facility] Start: 2007 COLOGUARD (FIT-DNA) COLOGUARD (FIT-DNA) [facility] Start: 2007 Colonoscopy COLONOSCOPY [facility] Start: 2007 COLORECTAL CANCER SCREENING COLORECTAL CANCER SCREENING [facility] Start: [address] COLONOGRAPHY [facility] Start: 2007 DIABETES SCREEN DIABETES SCREEN [facility] Start: 2007 Diabetes Screening Diabetes Screening [facility] Start: 2007 FECAL OCCULT BLOOD FECAL OCCULT BLOOD [facility] Start: 2007 Lipid 1996 panel - Serum or Plasma Lipid Screening [facility] Start: 2007 LIPID SCREEN LIPID SCREEN [facility] Start: 2007 SIGMOIDOSCOPY SIGMOIDOSCOPY [facility] Start: 1981 Urine microalbumin profile [facility] Start: 1980 HEPATITIS C SCREENING HEPATITIS C SCREENING [facility] End: 12-27-2023 Echocardiography ECHO Cardiology Routine Abnormal ECG Encounter for screening for cardiovascular disorders 1 Occurrences starting 12/26/2022 until 12/27/2023 [facility] Work Phone: Payers Date Payer Category Payer Unknown [employer] P[employer] [id number] 2021-Present [phone] [address] [place] [address] PPO [id number] 2021 Unknown [employer] PPO [id number] 2021-Present [phone] [address] [place] [address] PPO [id number] 2021 Unknown [id number] 1960 Unknown [id number] Social History Date Type Detail Facility Start: 12-26-2022 Tobacco smoking stat us TNIS Never smoked tobacco [facility] Start: 08-09-2021 End: 12-26-2022 Alcohol intake Current drinker of alcohol (finding) [facility] Start: 08-09-2021 End: 12-26-2022 Alcohol intake [facility] Start: 1960 Sex Assigned At Female C [facility] Start: 07-30-2021 End: 08-09-2021 Exposure to SARS-CoV-2 (event) Not sure [facility] Start: 08-09-2021 End: 12-26-2022 Tobacco use panel [facility] Adult Depression Screening Assessment 0 [facility] Start: 07-20-2021 Gender identity Identifies as female gender (finding) [facility] Start: 12-26-2022 Tobacco use and exposure Smoke less tobacco non-user [facility] Clinical Notes 08-09-2021 to 01-01-2023 Telephone Encounter - Clemencia Mayer - 01/01/2023 9:38 AM ESTTelephone Encounter - Clemencia Mayer - 12/26/2022 12:14 PM Alison Cruz - 12/26/2022 10:43 AM ESTPatient InstructionsPatient Instructions Note Date & Type Note Facility 01-01-2023 Miscellaneous Notes ECHO order faxed to [facility] at [phone]. Clemencia Mayer documented in this encounter [facility] 12-26-2022 Note HNO ID: [id number] Author: Alison Das Service: ? Author Type: ? Type: Progress Notes Filed: 12/26/2022 10:44 AM Note Text: EVENT MONITOR DISPOSABLE PATCH INSTRUCTIONS Patient Name: Nuvia Wilson [facility] Number: [id number] Skin prepped and cleansed with alcohol Patch secured to prepped area Monitor Activated Serial #: [id number] Patient Instructed: Prescribed order timeframe Bathing guidelines Usage of event button and diary documentation Return of monitor at the end of prescribed order Call with problems [phone] or [phone]. [phone] Patient expresses a good understanding of instructions Alison Das [facility] 12-26-2022 Note Education (CARDMN) NUVIA WILSON ([id number]) 1960 F Date Time Provider Department 12/26/22 10:30 AM ARRHYTHMIA MONITORING LAB CARDMN Reason for Visit: Event [921] Cmt: ZIO PATCH Primary Visit Diagnosis:Abnormal ECG [R94.31] Other Visit Diagnosis:Encounter for screening for cardiovascular disorders [Z13.6] During your visit today, we recorded the following information about you: Allergies As of Date: 12/26/2022 Noted Allergy Reaction PENICILLINS 06/22/2005 2 - Rash SULFA (SULFONAMIDE ANTIBIOTICS) 11/01/2012 2 - Rash 9 - Itching Date Reviewed: 12/26/2022 Reviewed by: Marlene Conrad, DEMETRIO - Fully Assessed Prescriptions as of 12/26/2022 - HYDROcodone-acetaminophen (NORCO) 5-325 mg per tablet - methylPREDNISolone (MEDROL DOSE-PACK) 4 mg Dose-Pack - venlafaxine (EFFEXOR) 75 mg tablet Take 75 mg by mouth once daily. - LEVOXYL 88 MCG TAB Encounter Status:Closed by ALISON DAS on 12/26/22 [facility] 12-26-2022 Miscellaneous Notes Office notes faxed to Dr. Payton ([phone]) and Dr. Brush's ([phone])offices. Clemencia Mayer documented in this encounter [facility] 12-26-2022 Note HNO ID: [id number] Author: Vinh Kapadia MD Service: ? Author Type: Physician Type: Progress Notes Filed: 12/26/2022 11:14 AM Note Text: [facility] [place] [facility] Department of Cardiovascular Medicine SECTION OF CLINICAL CARDIOLOGY OUTPATIENT VISIT DATE December 26, 2022 OUTPATIENT VISIT TYPE NEW PRIMARY CARE [facility]IC[facility]: [facility] [address] [place] [address] REFERRING PHYSICIAN: Millie Herrera) [address] [facility] [address] CHIEF COMPLAINT: Abnormal ECG - Cardiac clearance HISTORY OF PRESENT ILLNESS: NURSING INTAKE: Ms. Wilson is a 62 year old female from [place], [place] here today for cardiovascular evaluation related to abnormal EKG reading. She mentions that before she starts a medication from her COMPUTER ANALYST for weight loss, her OB had her get an EKG done which came back abnormal. Her OB wanted her to see cardiology to ensure everything is okay from a cardiac standpoint prior to starting this medication. This is her first time seeing a retail customer service specialist. Nuvia has a significant medical history of: Anxiety Bariatric surgery in 2015 Depression Hypothyroidism Family Hx: Mother - atrial fibrillation Father - atrial fibrillation Grandma - Breast CA Grandpa - DM She reports the following symptoms: -Palpitations: A few times a week. No exacerbating symptoms. Mentions that caffeine does not affects this. Palpitaions come out of the blue and subside very quickly. -Patient denies chest pain, palpitations, shortness of breath, lightheadedness, dizziness, syncope, PND, and edema. 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 Diet: Regular Exercise: Walking daily - average of 3 miles a day 3 days a week Check BP at home - systolics used to be in the 120's ; over 4 months more the 150's PAST MEDICAL HISTORY Diagnosis Date Anxiety state Dysplasia of cervix, low grade (MARGUERITE 1) 2013 Traumatic subdural hematoma without loss of consciousness (HCC) 03/10/2019 L tentorial SDH AND small R SAH. Unspecified hypothyroidism PAST SURGICAL HISTORY Procedure Laterality Date BARIATRIC SURGERY HX 02/15/2015 Bariatric Sleeve DILATION AND CURETTAGE DXAND/THER NONOBSTETRIC HIATAL HERNIA REPAIR HX 02/15/20152013 SOCIAL HISTORY Social History Tobacco Use Smoking status: Never Smokeless tobacco: Never Vaping Use Vaping Use: Never used Substance Use Topics Alcohol use: Yes Alcohol/week: 2.5 standard drinks of alcohol Types: 1 Glasses of Wine (5oz) per week Comment: OCCASIONALLY Drug use: No FAMILY HISTORY Problem Relation Age of Onset Heart Mother Heart Father Breast Cancer Maternal Grandmother ALLERGIES: ALLERGIES Allergen Reactions Penicillins Rash Sulfa (Sulfonamide * Rash, Itching MEDICATIONS: venlafaxine (EFFEXOR) 75 mg tablet Take 75 mg by mouth once daily. LEVOXYL 88 MCG TAB HYDROcodone-acetaminophen (NORCO) 5-325 mg per tablet (Patient not taking: Reported on 12/26/2022) methylPREDNISolone (MEDROL DOSE-PACK) 4 mg Dose-Pack (Patient not taking: Reported on 12/26/2022) REVIEW OF SYSTEMS: POSITIVES IN BOLD GENERAL: Negative for: Weight loss or gain, Fever or Chills, Weakness and Sleep difficulties. HEENT: Negative for: Headache, Impaired Vision, Glasses, Hearing Impairment, Ringing in Ears, Nosebleeds, Poor dental care, Bleeding Gums, Dentures NECK: Negative for: Swelling, Pain, Stiffness RESPIRATORY: Negative for: Cough, Blood in Sputum, Shortness of breath, Wheezing, Apnea GASTROINTESTINAL: Negative for: Trouble swallowing, Heartburn, Change in bowel habits, Blood in stool, Dark black stools MUSCULOSKELETAL: Negative for: Muscle or joint pain, Stiffness , Joint swelling NEUROLOGIC/PSYCHIATRIC: Negative for: Weakness, Paralysis, Numbness, Tingling, Tremor, Nervousness, Depressed mood, Memory loss SKIN: Negative for: Rashes, Itching HEMATOLOGICAL/LYMPHATIC: Negative for: Easy bruising , Easy bleeding ENDOCRINE: Negative for: Heat or cold intolerance, Excessive sweating, Frequent urination, Frequent thirst PHYSICAL EXAMINATION: BP 155/94 (BP Site: Right Arm) Pulse 71 Ht 167.6 cm (5' 6 ) Wt 99.8 kg (220 lb) LMP 11/23/2013 SpO2 98% BMI 35.51 kg/m? General: Well appearing, in no acute distress. Skin: No clubbing, no cyanosis. Eyes: Extra ocular movements intact Oropharynx: Teeth in good repair. Neck: No jugular venous distention, no carotid bruits, carotids have a normal upstroke, no palpable thyromegaly. Lungs: Clear to auscultation bilaterally, no wheezing or rhonchi. Heart: Regular rhythm, PMI not displaced, S1, S2 normal, no S3, no S4, no heaves, no rub and no murmur. Abdomen: Soft, nontender, bowel sounds normal, no palpable organomeg (more content not included)... [facility] 12-26-2022 History of Present illness Narrative EVENT MONITOR DISPOSABLE PATCH INSTRUCTIONS Patient Name: Nuvia Wilson [facility] Number: [id number] Skin prepped and cleansed with alcohol Patch secured to prepped area Monitor Activated Serial #: [id number] Patient Instructed: Prescribed order timeframe Bathing guidelines Usage of event button and diary documentation Return of monitor at the end of prescribed order Call with problems [phone] or [phone]. [phone] Patient expresses a good understanding of instructions Alison Das documented in this encounter [facility] 12-26-2022 Instructions Vinh Kapadia MD - 12/26/2022 10:09 AM EST No contraindication to phentermine based on your ECG However due to complaints of palpitations - important to rule out afib/aflutter - wear heart monitor for 2 weeks Obtain echocardiogram to evaluate your heart structure and function Will communicate results of tests when available Heart Disease Risk Factor Modifications #1. Blood pressure control with target blood pressure less than 130/80 Yours high - 155/94 Recommend treatment - follow up with your PCP #2. Cholesterol control - Total cholesterol < 200, Triglycerides < 150, HDL > 40, LDL < 100 or 70 (with history of stroke, heart attack or stents) Last year - high 230+ Follow up with PCP ; can consider weight loss, exercise, low cholesterol and recheck six months and/or medication for reducing cholesterol #3. Blood sugar control with goal HgA1C less than 6.5. On target #4. Tobacco cessation and avoid 2nd and 3rd hand smoke.N/A #5 Weight loss : [place] BMI (Body Mass Index = weight (kg) / height in m2) between 18.5 and 24.9. #6. Regular exercise : Goal of at least 150 minutes per week of moderate intensity (heart rate up to 50-60% higher than resting heart rate ' you can talk but not sing' ) exercise. This can be divided into 30 minutes a day five days a week of which 2 days of strength training recommended. Start slowly and increase activity as tolerated. The main goal is to be consistent. #7 Healthy eating - mediterranean diet recommended ; portion control I spent more than 50% of the visit counseling the patient on the plan and treatment options. Face to Face time was minutes. documented in this encounter [facility] 12-26-2022 Note HNO ID: [id number] Author: Juancarlos Alvarado MD Service: ? Author Type: Physician Type: Procedures Filed: 01/19/2023 5:58 PM Note Text: Patient Name: Nuvia Wilson : 1960 Ordering Provider: Vinh Kapadia Indication: R94.31 Abnormal electrocardiogram [ECG] [EKG] Type of Monitor: Extended Monitoring-Zio Patch Enrollment Dates: 12/26/2022-01/05/2023 IMPRESSION: Agree with preliminary findings. Patient had a min HR of 52 bpm, max HR of 203 bpm, and avg HR of 78 bpm. Predominant underlying rhythm was Sinus Rhythm. 303 Supraventricular Tachycardia runs occurred, the run with the fastest interval lasting 7 beats with a max rate of 203 bpm, the longest lasting 18 beats with an avg rate of 130 bpm. Some episodes of Supraventricular Tachycardia may be possible Atrial Tachycardia with variable block. Isolated SVEs were rare (<1.0%), SVE Couplets were rare (<1.0%), and SVE Triplets were rare (<1.0%). Isolated VEs were rare (<1.0%, 5535), VE Couplets were rare (<1.0%, 64), and VE Triplets were rare (<1.0%, 1). Ventricular Bigeminy and Trigeminy were present. Juancarlos Alvarado MD January 19, 2023 [facility] 12-26-2022 History of Present illness Narrative Images from the original note were not included. [facility] [place] [facility] Department of Cardiovascular Medicine SECTION OF CLINICAL CARDIOLOGY OUTPATIENT VISIT DATE December 26, 2022 OUTPATIENT VISIT TYPE NEW PRIMARY CARE PHYSICIAN: Millie Payton ([facility]) [address] [place] [address] REFERRING PHYSICIAN: [facility] [address] [facility] [address] CHIEF COMPLAINT: Abnormal ECG - Cardiac clearance HISTORY OF PRESENT ILLNESS: NURSING INTAKE: Ms. Wilson is a 62 year old female from [place], [place] here today for cardiovascular evaluation related to abnormal EKG reading. She mentions that before she starts a medication from her COMPUTER ANALYST for weight loss, her OB had her get an EKG done which came back abnormal. Her OB wanted her to see cardiology to ensure everything is okay from a cardiac standpoint prior to starting this medication. This is her first time seeing a retail customer service specialist. Nuvia has a significant medical history of: Anxiety Bariatric surgery in 2015 Depression Hypothyroidism Family Hx: Mother - atrial fibrillation Father - atrial fibrillation Grandma - Breast CA Grandpa - DM She reports the following symptoms: -Palpitations: A few times a week. No exacerbating symptoms. Mentions that caffeine does not affects this. Palpitaions come out of the blue and subside very quickly. -Patient denies chest pain, palpitations, shortness of breath, lightheadedness, dizziness, syncope, PND, and edema. 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 Diet: Regular Exercise: Walking daily - average of 3 miles a day 3 days a week Check BP at home - systolics used to be in the 120's ; over 4 months more the 150's PAST MEDICAL HISTORY Diagnosis Date Anxiety state Dysplasia of cervix, low grade (MARGUERITE 1) 2013 Traumatic subdural hematoma without loss of consciousness (HCC) 03/10/2019 L tentorial SDH & small R SAH. Unspecified hypothyroidism PAST SURGICAL HISTORY Procedure Laterality Date BARIATRIC SURGERY HX 02/15/2015 Bariatric Sleeve DILATION & CURETTAGE DX&/THER NONOBSTETRIC HIATAL HERNIA REPAIR HX 02/15/20152013 SOCIAL HISTORY Social History Tobacco Use Smoking status: Never Smokeless tobacco: Never Vaping Use Vaping Use: Never used Substance Use Topics Alcohol use: Yes Alcohol/week: 2.5 standard drinks of alcohol Types: 1 Glasses of Wine (5oz) per week Comment: OCCASIONALLY Drug use: No FAMILY HISTORY Problem Relation Age of Onset Heart Mother Heart Father Breast Cancer Maternal Grandmother ALLERGIES: ALLERGIES Allergen Reactions Penicillins Rash Sulfa (Sulfonamide * Rash, Itching MEDICATIONS: venlafaxine (EFFEXOR) 75 mg tablet Take 75 mg by mouth once daily. LEVOXYL 88 MCG TAB HYDROcodone-acetaminophen (NORCO) 5-325 mg per tablet (Patient not taking: Reported on 12/26/2022) methylPREDNISolone (MEDROL DOSE-PACK) 4 mg Dose-Pack (Patient not taking: Reported on 12/26/2022) REVIEW OF SYSTEMS: POSITIVES IN BOLD GENERAL: Negative for: Weight loss or gain, Fever or Chills, Weakness and Sleep difficulties. HEENT: Negative for: Headache, Impaired Vision, Glasses, Hearing Impairment, Ringing in Ears, Nosebleeds, Poor dental care, Bleeding Gums, Dentures NECK: Negative for: Swelling, Pain, Stiffness RESPIRATORY: Negative for: Cough, Blood in Sputum, Shortness of breath, Wheezing, Apnea GASTROINTESTINAL: Negative for: Trouble swallowing, Heartburn, Change in bowel habits, Blood in stool, Dark black stools MUSCULOSKELETAL: Negative for: Muscle or joint pain, Stiffness , Joint swelling NEUROLOGIC/PSYCHIATRIC: Negative for: Weakness, Paralysis, Numbness, Tingling, Tremor, Nervousness, Depressed mood, Memory loss SKIN: Negative for: Rashes, Itching HEMATOLOGICAL/LYMPHATIC: Negative for: Easy bruising , Easy bleeding ENDOCRINE: Negative for: Heat or cold intolerance, Excessive sweating, Frequent urination, Frequent thirst PHYSICAL EXAMINATION: BP 155/94 (BP Site: Right Arm) Pulse 71 Ht 167.6 cm (5' 6 ) Wt 99.8 kg (220 lb) LMP 11/23/2013 SpO2 98% BMI 35.51 kg/m General: Well appearing, in no acute distress. Skin: No clubbing, no cyanosis. Eyes: Extra ocular movements intact Oropharynx: Teeth in good repair. Neck: No jugular venous distention, no carotid bruits, carotids have a normal upstroke, no palpable thyromegaly. Lungs: Clear to auscultation bilaterally, no wheezing or rhonchi. Heart: Regular rhythm, PMI not displaced, S1, S2 normal, no S3, no S4, no heaves, no rub and no murmur. Abdomen: Soft, nontender, bowel sounds normal, no palpable organomegaly, no bruits. Extremities: No peripheral edema . Grade 2/4 distal pulses bilaterally. Neuro: Oriented to person, place and time, alert, cooperative, gait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
[2023-03-01 11:05] LABS: T4 Free Direct 1.21 ng/dL (0.76-1.46); Thyroid Stim Hormone (TSH) 2.34 uIU/mL (0.358-3.74)
== END | disposition home or self-care (01) ==
PROVIDERS: PCP Internal Medicine; Referring Provider Obstetrics & Gynecology; Visit Provider Obstetrics & Gynecology
DX: E04.9 Nontoxic goiter, unspecified (principal); E03.9 Hypothyroidism, unspecified
CPT/HCPCS: 36415; 84439; 84443

== ENCOUNTER → 2023-10-11 | Outpatient (CLI) | payer OTHER, SELFPAY ==
[2023-10-17 17:07] LABS: HPV APTIMA, High Risk Positive (Negative)
== END | disposition home or self-care (01) ==
LOC: LABSPEC 11:57
PROVIDERS: PCP Internal Medicine; Referring Provider Obstetrics & Gynecology; Visit Provider Obstetrics & Gynecology
DX: R87.619 Unspecified abnormal cytological findings in specimens from cervix uteri (principal); Z12.4 Encounter for screening for malignant neoplasm of cervix
CPT/HCPCS: 87624; 88175; G0145

== ENCOUNTER → 2023-12-11 | Outpatient (CLI) | payer OTHER, SELFPAY ==
--- NOTE | 2023-12-11 | IMM_PTH ---
PATIENT: ALFONSO VERDUGO LOC: [facility] U#:[id number] AGE/SX: 63/F ROOM: RE12/11/[address]: Dr. Rose Marie Brush MD : 1960 BED: DIS: 12/11/2023 SPEC #: [id number] RECD: 12/14/23 10:42 STATUS: CASS REQ #: [id number] MATA: 12/11/23 00:[address]: Rose Marie Brush DEPT: IMMUNOHISTOCHEMISTRY RECD BY: Idris Solares ENTERED: 12/14/23 10:42 SP TYPE: IMMUNO OTHR DR: Dr. Mirian Payton MD Tissues: B - Uterine cervix, NOS Procedures: p16 (initial) KI-67 (add) PHYSICIAN & INSTITUTION [place] [id number] SPECIMEN INFORMATION: Tissue Source: B- 8o'clock Clinical Info: Abnormal pap smear of cervix, HPV positive test Specimen Number: [id number] CPT code: 26625,43965 METHODOLOGY: Deparaffinized sections of prefer/formalin-fixed tissue or PAP/DQ stained slides are incubated with monoclonal/polyclonal antibodies/oligonucleotide probes. Localization is made via biotin free immunoperoxidase method. Appropriate controls are performed and reacted as expected. Results on target cell population are indicated in the following table: RESULTS: ANTIBODY / CLONE RESULT Block B P16 (E6H4) positive, focal, patchy, light stain Ki-67 (30-9) positive, low These tests were developed and their performance characteristics determined by [facility]. They may not have been cleared or approved by the U.S. Food and Drug Administration. The FDA has determined that such clearance or approval is not necessary. The above immunohistochemical/dualISH markers are ordered and reviewed by the Pathologist. INTERPRETATION: B. Cervix, 8o'clock, biopsy: HPV change present. Case has been reviewed in consultation with Dr. Wilson who concurs with the above diagnosis. IDC:YVONEN Roberson 12/14/2023
--- NOTE | 2023-12-11 13:04 | BI_ITS ---
MAMMOGRAPHY - BILATERAL SCREENING REASON FOR EXAM: Female, 63 years old. Routine annual screening examination. PERTINENT HISTORY: Grandmother with breast cancer. Remote bilateral breast reduction surgery. TECHNIQUE: Digital bilateral breast priscila (3D mammographic acquisition) in the CC and MLO projections. 2-D mediolateral oblique (MLO) and craniocaudad (CC) views of both breasts were obtained. CAD: Full Field Digital Mammography with Computer Added Detection was performed. COMPARISON: Comparison is made with prior study November 23, 2022 and September 30, 2021. FINDINGS: Breast Composition: The breasts are heterogeneously dense, which may obscure small masses. There are no dominant masses or suspicious calcifications. Stable small benign-appearing bilateral axillary lymph nodes. Stable partially calcified nodule in the retroareolar region of the right breast. No other significant abnormalities are identified. There has been no significant change since the prior study. BI/SCRN MAMM (CAD)W/PRISCILA BILAT IMPRESSION: Stable bilateral screening mammogram. Yearly follow-up mammogram recommended. (A) ASSESSMENT CATEGORY: BIRADS Category 2: Benign. A letter regarding these results will be sent to the patient by the facility within 30 days. Approximately 10% of breast cancers are not detected by mammography. A normal mammogram should not delay biopsy of a clinically suspicious abnormality. [id number] Electronically Signed: Thaddeus May MD at 14:12 EDT ,
--- NOTE | 2023-12-11 14:00 | CER_PTH ---
PATIENT: ALFONSO VERDUGO LOC: [facility] U#:[id number] AGE/SX: 63/F ROOM: RE12/11/[address]: Dr. Rose Marie Brush MD : 1960 BED: DIS: 12/11/2023 SPEC #: [id number] RECD: 12/12/23 10:23 STATUS: CASS ERICA #: [id number] MATA: 12/11/23 14:[address]: Rose Marie Brush DEPT: SURGICAL PATHOLOGY RECD BY: Dejah Garcia ENTERED: 12/12/23 10:24 SP TYPE: CERV OTHR DR: Dr. Mirian Payton MD Tissues: A - Uterine cervix, NOS B - Uterine cervix, NOS Procedures: Surgery Specimen Level IV HEADER OPERATION: Colposcopy PRE-OP DIAGNOSIS: Abnormal pap smear of cervix/ HPV test positive TISSUE SUBMITTED: A- 6o'clock, B- 8o'clock MICROSCOPIC DIAGNOSIS A. Cervix, 6o'clock, biopsy: Rare glandular mucosa present. B. Cervix, 8o'clock, biopsy: Minimal chronic inflammation. HPV change present See comment. 12/13/2023 COMMENT B. Immunohistochemistry ([id number]) for surrogate HPV marker (p16) shows weak, variable, inconclusive staining. Re- biopsy is recommended if clinically indicated. Case has been reviewed in consultation with Dr. Wilson who concurs with the above diagnosis. IDC:SJ MICROSCOPIC DESCRIPTION Slides are reviewed. GROSS DESCRIPTION A. Received in fixative is one container labeled with the patient's name and designated 6o'clock. The specimen consists of two irregular fragments of light mucoid material in aggregate measure 0.8 x 0.3 x 0.1 cm. The specimen is totally submitted in one cassette. B. Received in fixative is one container labeled with the patient's name and designated 8o'clock. The specimen consists of multiple irregular fragments of light dumont soft tissue that in aggregate measure 0.5 x 0.3 x 0.1 cm. The specimen is totally submitted in one cassette. 12/12/2023 TC:3 CPT:35859v4
== END | disposition home or self-care (01) ==
PROVIDERS: PCP Internal Medicine; Referring Provider Obstetrics & Gynecology; Visit Provider Obstetrics & Gynecology
DX: Z12.31 Encounter for screening mammogram for malignant neoplasm of breast (principal); Z80.3 Family history of malignant neoplasm of breast
CPT/HCPCS: 77063; 77067; 88305; 88341; 88342

== ENCOUNTER 2024-08-04 06:25 | Day surgery (SDC) | payer OTHER, SELFPAY ==
--- NOTE | 2024-07-31 11:14 | PAT.ANE_ITS ---
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 When Was Last Pacemaker Check QUESTION #4 FULL TEXT: You/Your Family Experience fever (hyperthermia) with Anesthesia Last Oral Intake Last Oral intake: Last Oral Intake NPO since Meds taken in AM with sips of water? 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 - head soft sugar operator: PONV - head soft sugar operator Female Yes 07/31/24 10:35 HX of Motion Sickness No 07/31/24 10:35 HX of N/V After Surgery No 07/31/24 10:35 Non-Smoker Yes 07/31/24 10:35 Duration of Surgery greater No 07/31/24 10:35 than 60 minutes Number of Risk Factors 2 07/31/24 10:35 PONV Score Moderate Risk 07/31/24 10:35 Height & Weight Height & Weight: Anesthesia: Height & Weight Height 5 ft 6 in 05/30/24 11:34 Respiratory Assessment Respiratory Assessment - head soft sugar operator: Respiratory Tract Infection Hx - head soft sugar operator Hx Respiratory Tract Infection No 07/31/24 10:35 STOP Sleep Apnea STOP Sleep Apnea - head soft sugar operator: STOP Sleep Apnea - head soft sugar operator Hx Hypertension No 07/31/24 10:35 Hx Sleep Apnea No 07/31/24 10:35 CPAP No 04/03/24 13:30 BIPAP No 04/03/24 13:30 Do you snore loudly (louder No 07/31/24 10:35 than talking or can be heard Do you often feel tired/ No 07/31/24 10:35 fatigued/ sleepy during daytime? Has anyone observed you stop No 07/31/24 10:35 breathing during sleep? STOP Results Negative 07/31/24 10:35 QUESTION #5 FULL TEXT : Do you snore loudly (louder than talking or can be heard through closed doors)? Tobacco Use History Tobacco Use History - head soft sugar operator: Tobacco Use History - head soft sugar operator Tobacco Use Smoking Status Never smoker 07/31/24 10:35 Hx Tobacco Use No 07/31/24 10:35 Years Smoking Packs Smoked per Day Smoking Cessation Date was within the last 15 years Hx Smoking Cessation Date Hx Smoking Cessation Counseling Hematologic Medial History Hematologic Hx - head soft sugar operator: Hematologic Medical Hx - tie binder Hx of Blood Transfusion No 07/31/24 10:35 Hx of Transfusion in last 3 No 07/31/24 10:35 Months Date of Last Transfusion (if within last 3 months) Ever experience any problems No 07/31/24 10:35 with transfusion(s)? Specify any problems Hx of Preganancy in last 3 No 07/31/24 10:35 Months Nurse Filling Out Transfusion VCHRISTIN 07/31/24 10:35 & Questions: Date: 07/31/24 07/31/24 10:35 Time: 10:37 07/31/24 10:35 Patient unable to answer at this time (ie. confused, unrespo /Reproduction History /Reproductive History - head soft sugar operator: /Reproductive Hx- head soft sugar operator Hx Now No 07/31/24 10:35 Gestational Age (in weeks): EDC: Hx Hx Para Hx Section SAB No 07/31/24 10:35 [facility] Medical History (Updated 07/31/24 @ 10:35 by Noelle Palma) Wears glasses Wears contact lenses History of steroid therapy Thyroid disease Injury of head and neck Non-smoker History of edema History of echocardiogram Depression with anxiety Goiter Home Medications ?Medication ?Instructions ?Recorded ?Last Taken ?Type venlafaxine 75 mg capsule,extended 75 mg PO DAILY #30 caps 05/30/24 Unknown Rx release 24 hr cholecalciferol (vitamin D3) 50 50 mcg PO DAILY Unknown History mcg (2,000 unit) capsule levothyroxine 75 mcg tablet 75 mcg PO DAILY 07/31/24 U nknown History Allergy/AdvReac Type Severity Reaction Status Date / Time Penicillins AdvReac Rash Verified 07/31/24 10:26 Sulfa (Sulfonamide AdvReac Rash Verified 07/31/24 10:26 Antibiotics) Family History Grandmother Breast cancer Grandfather Diabetes Surgical History (Updated 07/31/24 @ 10:35 by Noelle Palma) Hx of colonoscopy History of endometrial ablation S/P dilation and curettage S/P gastric surgery Status post breast reduction Social History Smoking Status: Never smoker alcohol intake: current details: occasionally substance use type: does not use caffeine: Yes what type of physical activity do you participate in: walking frequency: 3-4 times per week seatbelt use: always do you feel safe at home: Yes additional social history: Remarried to Rich! 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 [employer]: Pertinent Findings Pertinent Findings EKG Perinent findings: 12/19/2022. Normal sinus rhythm 74 bpm. Left anterior fascicular block. Echo (EF%) pertinent findings: 02/07/2023. Normal size function EF 50%. Mild global hypokinesis of left ventricle. Structurally normal valves. Recommendation Anesthesia Recommendation Anesthesia recommendation: OPTIMIZED for anesthesia
[2024-08-04] VITALS (8 sets, daily range): BP systolic 101–148; BP diastolic 65–98; PULSE 55–78; RESP 16–18; TEMP 36.2–36.9; O2SAT 98–100; BMI 33.4
--- OUTSIDE RECORDS SUMMARY | 2024-08-04 06:28 | XMS RPT_ITS | CCD ---
Author Organization [facility] CliniSytx Care Team Providers Care Oracle Database Administrator Name Role Phone Tata MA, Millie Primary Care Provider Dr. Millie Payton Primary Care Provider Tata, Dr. Vela Referring Provider Dr. Rose Marie Brush Attending Provider Millie Payton MD Primary Care Provider Tata MA, Millie Primary Care Provider Dr. Millie Payton Primary Care Provider Dr. Millie Payton Referring Provider Dr. Rose Marie Brush Attending Provider [phone] Tata MA, Millie Primary Care Provider Kang MA, Chete Unavailable Dr. Millie Payton Primary Care Provider Dr. Millie Payton Referring Provider Dr. Rose Marie Brush Attending Provider Dr. Jeffery Rose Attending Provider Dr. Rose Marie Brush Referring Provider MILLIE PAYTON Referring Unavailable MILLIE PAYTON Primary Care Unavailable MILLIE PAYTON MD Admitting Unavailable MILLIE PAYTON MD Primary Care Unavailable MILLIE PAYTON MD Consulting Unavailable MILLIE PAYTON MD Attending Unavailable PROVIDER, UNKNOWN Consulting Unavailable PROVIDER, UNKNOWN Consulting Unavailable PROVIDER, UNKNOWN Consulting Unavailable LATOUF, BUTROS MD Primary Care Unavailable LATOUF, BUTROS MD Consulting Unavailable LATOUF, BUTROS MD Attending Unavailable LATOUF, BUTROS MD Admitting Unavailable PROVIDER, UNKNOWN Consulting Unavailable PROVIDER, UNKNOWN Consulting Unavailable PROVIDER, UNKNOWN Consulting Unavailable LATOUF, BUTROS MD Primary Care Unavailable LATOUF, BUTROS MD Consulting Unavailable LATOUF, BUTROS MD Attending Unavailable LATOUF, BUTROS MD Admitting Unavailable PROVIDER, UNKNOWN Consulting Unavailable PROVIDER, UNKNOWN Consulting Unavailable PROVIDER, UNKNOWN Consulting Unavailable LATOUF, BUTROS MD Primary Care Unavailable LATOUF, BUTROS MD Consulting Unavailable LATOUF, BUTROS MD Attending Unavailable LATOUF, BUTROS MD Admitting Unavailable PROVIDER, UNKNOWN Consulting Unavailable PROVIDER, UNKNOWN Consulting Unavailable PROVIDER, UNKNOWN Consulting Unavailable SELF, SELF Referring Unavailable JAYME ROCHA Attending Unavailable Marcanthony, Rose Marie Referring Unavailable Latouf, Butros Primary Care Unavailable Marcanthony, Rose Marie Attending Unavailable Marcanthony, Rose Marie Attending Unavailable Latouf, Butros Referring Unavailable Latouf, Butros Primary Care Unavailable Latouf, Butros Primary Care Unavailable Tracey Hudson Attending Unavailable Latouf, Butros Referring Unavailable Latouf, Butros Primary Care Unavailable BarkTracey jade Attending Unavailable Latouf, Butros Referring Unavailable Latouf, Butros Primary Care Unavailable Tracey Hudson Attending Unavailable Latouf, Butros Referring Unavailable Latouf, Butros Referring Unavailable Maryellen Lopez Attending Unavailable Latouf, Butros Primary Care Unavailable Marcanthony, Rose Marie Referring Unavailable Latouf, Butros Primary Care Unavailable Marcanthony, Rose Marie Attending Unavailable Latouf, Butros Primary Care Unavailable Marcanthony, Rose Marie Attending Unavailable Latouf, Butros Referring Unavailable Latouf, Butros Primary Care Unavailable Marcanthony, Rose Marie Attending Unavailable Latouf, Butros Referring Unavailable Marcanthony, Rose Marie Attending Unavailable Latouf, Butros Referring Unavailable Latouf, Butros Primary Care Unavailable Latouf, Butros Primary Care Unavailable Marcanthony, Rose Marie Attending Unavailable Latouf, Butros Referring Unavailable Latouf, Butros Primary Care Unavailable Marcanthony, Rose Marie Attending Unavailable Latouf, Butros Referring Unavailable Allergies Allergy Classification Reported Allergen(s) Allergy Type Date of Onset Reaction(s) Facility (3 sources) Penicillins; Translations: [PENICILLINS] Drug Intolerance 6 Rash [facility] (10 sources) Sulfonamides (Antibiotic); Translations: [SULFA (SULFONAMIDE ANTIBIOTICS)] Drug Allergy 3 Rash, Itching [facility] (5 sources) Penicillins Propensity to adverse reactions 1 Rash [facility] (5 sources) Sulfonamides (Antibiotic) Propensity to adverse reactions 1 Rash [facility] (7 sources) Penicillins Drug Intolerance 6 Rash [facility] (1 source) Penicillin Drug Allergy [facility] (1 source) Sulfonamides (Antibiotic) Drug allergy (disorder) [facility] (1 source) Penicillins Drug allergy (disorder) 5 [facility] (1 source) Sulfonamides (Antibiotic) Drug allergy (disorder) 5 [facility] Repository Medications Current Medications Medication Drug Class(es) Dates Sig (Normalized) Sig (Original) levothyroxine sodium 0.088 mg oral tablet (14 sources) l-Thyroxine Start: 06-23-2005 take 88 ug by mouth once daily Levothyroxine Active 88 MCG PO DAILY January 29, 2014 12:00am 24 hr venlafaxine 75 mg extended release oral capsule (20 sources) Serotonin and Norepinephrine Reuptake Inhibitor Start: 02-16-2022 take 75 mg by mouth once daily Venlafaxine Active 75 MG PO DAILY February 16, 2022 8:05am Start: 09-30-2021 End: 02-16-2022 take 1 capsule by mouth once daily Venlafaxine (Effexor Xr) 37.5 mg capsule,extended release 24hr Discontinued 37.5 MG PO DAILY September 29, 2021 11:00pm February 16, 2022 8:06am Start: 03-19-2019 take 1 tablet by franchesca th once daily venlafaxine (EFFEXOR) 75 mg tablet Take 75 mg by mouth once daily. 0 03/19/2019 Active Start: 03-19-2019 take 2 tablets by mo sch once daily venlafaxine (EFFEXOR) 75 mg tablet Take 150 mg by mouth once daily. 0 03/19/2019 Active Start: 01-29-2014 End: 11-24-2021 take 75 mg by mouth once daily Venlafaxine Discontinued 75 MG PO DAILY March 31, 2019 11:36am November 24, 2021 1:10pm Start: 01-29-2014 End: 03-31-2019 take 150 mg by mouth once daily Venlafaxine Discontinued 150 MG PO DAILY March 31, 2019 8:47am March 31, 2019 11:36am Comment on above: Take 150 mg by mouth once daily. Take 75 mg by mouth once daily. Completed/Discontinued Medications Medication Drug Class(es) Dates Sig (Normalized) Sig (Original) acetaminophen 325 mg / HYDROcodone bitartrate 5 mg oral tablet (4 sources) Opioid Agonist Start: 11-21-19 23 HYDROcodone-acetamino phen (NORCO) 5-325 mg per tablet acetaminophen 325 mg / oxyCODONE hydrochloride 5 mg oral tablet (6 sources) Opioid Agonist Start: 01-30-20 End: 03-31-19 take 2 tablets by mouth every four hours as needed Oxycodone-Acetaminoph en Discontinued 2 TABLET PO EVERY 4 HOURS NEEDED January 29, 2014 12:00am March 31, 2019 8:47am [id number] 200 actuat albuterol 0.09 mg/actuat metered dose inhaler (1 source) beta2-Adrenergic Agonist Start: 11-29-19 End: 08-10-19 22 take 2 puff(s) by inhalation every four hours as needed for wheezing albuterol HFA (VENTOLIN HFA) 90 mcg/actuation inhaler Inhale 2 Puffs as instructed every 4 hours as needed for wheezing/shortness of breath. 18 g 0 11/28/2020 08/09/2021 Discontinued (Discontinued by another Health Care Provider) Comment on above: Inhale 2 Puffs as in structed every 4 hours as needed for wheezing/shortness of breath. benzonatate 200 mg oral capsule (1 source) Non-narcotic Antitussive Start: 11-29-19 End: 08-10-19 22 take 1 capsule by mouth every eight hours as needed Benzonatate 200 mg capsule Take 1 capsule by mouth three times daily as needed. 21 capsule 0 11/28/2020 08/09/2021 Discontinued (Discontinued by another Health Care Provider) Comment on above: Take [address] [facility] three times daily as needed. methylPREDNISolone (4 sources) Corticosteroid Start: 10-13-19 23 methylPREDNISolone (MEDROL DOSE-PACK) 4 mg Dose-Pack miSOPROStol 0.2 mg oral tablet (7 sources) Prostaglandin E1 Analog Start: 01-29-20 End: 08-10-19 Misoprostol Discontinued January 29, 2014 12:00am March 31, 2019 8:47am Comment on above: Take two tabs by franchesca th the night before and 4 hours prior to surgery naproxen 250 mg oral tablet (6 sources) Nonsteroidal Anti-inflammatory Drug Start: 01-30-20 End: 03-31-19 take 250-500 mg by mouth every eight hours as needed Naproxen Discontinued 250 - 500 MG PO EVERY 8 HOURS NEEDED January 29, 2014 12:00am March 31, 2019 8:47am phentermine hydrochloride 37.5 mg oral capsule (6 sources) Sympathomimetic Amine Anorectic Start: 07-10-19 End: 09-01-19 take 1 capsule by mouth once daily 30 minutes after breakfast Phentermine (Adipex-P) 37.5 mg capsule Discontinued 37.5 MG PO DAILY July 08, 2020 11:00pm August 31, 2020 1:07pm must administer 30 minutes before or 1-2 hours after breakfast Problems Active Problems Problem Classification Problem Date Documented Da te Episodic/Chronic Anxiety disorders (8 sources) Mixed anxiety and depressive disorder; Translations: [Other specified anxiety disorders] Chronic Blindness and vision defects (2 sources) Diplopia; Translations: [Diplopia] Episodic Disorders of lipid metabolism (1 source) Mixed hyperlipidemia; Translations: [Mixed hyperlipidemia] 12-26-2022 Chronic Menopausal disorders (8 sources) Abnormal perimenopausal bleeding; Translations: [Excessive bleeding in the premenopausal period] Onset: 11-01-2011 11-01-2011 Chronic Nutritional deficiencies (3 sources) Vitamin D deficiency, unspecified; Translations: [Vitamin D deficiency] Onset: 12-28-2023 Chronic Other gastrointestinal disorders (6 sources) Incontinence of feces; Translations: [Full incontinence of feces] 09-30-2021 Episodic Other gastrointestinal disorders (2 sources) Full incontinence of feces; Translations: [Full incontinence of feces] Episodic Other nutritional; endocrine; and metabolic disorders (6 sources) Obesity; Translations: [Obesity, unspecified] 09-30-2021 Chronic Other nutritional; endocrine; and metabolic disorders (2 sources) Obesity, unspecified; Translations: [Obesity, unspecified] Chronic Other nutritional; endocrine; and metabolic disorders (1 source) Obesity caused by energy imbalance; Translations: [Other obesity due to excess calories] 12-26-2022 Chronic Residual codes; unclassified (13 sources) Positive measurement finding; Translations: [Positive test for human papillomavirus (HPV)] Episodic Thyroid disorders (9 sources) Goiter; Translations: [Nontoxic goiter, unspecified] Onset: 12-28-2023 09-23-2019 Chronic Transient cerebral ischemia (2 sources) Cerebral ischemia; Translations: [Transient cerebral ischemic attack, unspecified] Chronic Past or Other Problems Problem Classification Problem Date Documented Date Episodic/Chronic Genitourinary symptoms and ill-defined conditions (1 source) Frequency of micturition; Translations: [Frequency of micturition] Onset: 08-02-2023 Episodic Other screening for suspected conditions (not mental disorders or infectious disease) (20 sources) Patient encounter status; Translations: [Encounter for screening for malignant neoplasm of intestinal tract, unspecified] Onset: 12-11-2023 09-23-2019 Episodic Residual codes; unclassified (8 sources) History of endometrial ablation; Translations: [Other specified postprocedural states] Onset: 08-07-2011 08-07-2011 Episodic Sexually transmitted infections (not HIV or hepatitis) (8 sources) Human papillomavirus deoxyribonucleic acid test positive, high risk on cervical specimen; Translations: [Cervical high risk human papillomavirus (HPV) DNA test positive] Onset: 08-12-2013 08-12-2013 Episodic Results Test Name Value Interpretation Reference Range Facility MR/Breanna 07-31-2024 MR/[facility] Medical Records Department [address] [place] [address] PAT - Anesthesia 07/31/24 1114 MR#: [id number] Acct: [id number] Name: ALFONSO WILSON PASCALE Rep #: [id number] : 1960 64 From: Juan Georges MD PCP: Dr. 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 When Was Last Pacemaker Check QUESTION #4 FULL TEXT: You/Your Family Experience fever (hyperthermia) with Anesthesia Last Oral Intake Last Oral intake: Last Oral Intake NPO since Meds taken in AM with sips of water? 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 - health education teacher: PONV - health education teacher Female Yes 07/31/24 10:35 HX of Motion Sickness No 07/31/24 10:35 HX of N/V After Surgery No 07/31/24 10:35 Non-Smoker Yes 07/31/24 10:35 Duration of Surgery greater No 07/31/24 10:35 than 60 minutes Number of Risk Factors 2 07/31/24 10:35 PONV Score Moderate Risk 07/31/24 10:35 Height Weight Height Weight: Anesthesia: Height Weight Height 5 ft 6 in 05/30/24 11:34 Respiratory Assessment Respiratory Assessment - health education teacher: Respiratory Tract Infection Hx - health education teacher Hx Respiratory Tract Infection No 07/31/24 10:35 STOP Sleep Apnea STOP Sleep Apnea - health education teacher: STOP Sleep Apnea - health education teacher Hx Hypertension No 07/31/24 10:35 Hx Sleep Apnea No 07/31/24 10:35 CPAP No 04/03/24 13:30 BIPAP No 04/03/24 13:30 Do you snore loudly (louder No 07/31/24 10:35 than talking or can be heard Do you often feel tired/ No 07/31/24 10:35 fatigued/ sleepy during daytime? Has anyone observed you stop No 07/31/24 10:35 breathing during sleep? STOP Results Negative 07/31/24 10:35 QUESTION #5 FULL TEXT : Do you snore loudly (louder than talking or can be heard through closed doors)? 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 Specify any problems Hx of Preganancy in last 3 No 07/31/24 10:35 Months Nurse Filling Out Transfusion VCHRISTIN 07/31/24 10:35 Questions: Date: 07/31/24 07/31/24 10:35 Time: 10:37 07/31/24 10:35 Patient unable to answer at this time (ie. confused, unrespo /Reproduction History /Reproductive History - health education teacher: /Reproductive Hx- health education teacher Hx Now No 07/31/24 10:35 Gestational Age (in weeks): EDC: Hx Hx Para Hx Section SAB No 07/31/24 10:35 [facility] Medical History (Updated 07/31/24 @ 10:35 by Noelle Palma) Wears glasses Wears contact lenses History of steroid therapy Thyroid disease Injury of head and neck Non-smoker History of edema History of echocardiogram Depression with anxiety Goiter Home Medications ???Medication ???Instructions ???Recorded ???Last Taken ???Type venlafaxine 75 mg capsule,extended 75 mg PO DAILY #30 caps 05/30/24 Unknown Rx release 24 hr cholecalciferol (vitamin D3) 50 50 mcg PO DAILY 07/31/24 Unknown H istory mcg (2,000 unit) capsule levothyroxine 75 mcg tablet 75 mcg PO DAILY 07/31/24 Unknown H istory Allergy/AdvReac Type Severity Reaction Status Date / Time Penicillins AdvReac Rash Verified 07/31/24 10:26 Sulfa (Sulfonamide AdvReac Rash Verified 07/31/24 10:26 Antibiotics) Family History Grandmother Breast cancer Grandfather Diabetes (more content not included)... Normal [facility] Patient Coordinator Office Visit Reporton 05-30-2024 Patient Coordinator Office Visit Report [facility] [address], [address] [place] [address] OFFICE VISIT Date of Service: 05/30/24 MR#: [id number] Acct: [id number] Name: ALFONSO WILSON Rep #: [id number] : 1960 Provider: Dr. Rose Marie florez MD Age/Sex: 64/F Location: [facility] Status: Signed Intake Vital Signs 04/08/24 09:36 04/30/24 08:41 05/30/24 11:32 05/30/24 11:34 Height 5 ft 6 in 5 ft 6 in 5 ft 6 in 5 ft 6 in Weight: 209 lb 6 oz 211 lb BMI 33.7 34.0 BP 130/82 H 125/84 H Pulse 77 71 Intake Visit Reasons: 3 M FU Medical Insurance Claims Specialist Required: No Is patient in pain?: No Allergies Penicillins Adverse Reaction (Verified 04/30/24 08:34) Rash Sulfa (Sulfonamide Antibiotics) Adverse Reaction (Verified 04/30/24 08:34) Rash Medications ???Medication ???Instructions ???Recorded ???Confirmed ???Type levothyroxine 88 mcg tablet 88 mcg PO DAILY 10/11/23 05/30/24 History phentermine 15 mg-topiramate ER 92 1 cap PO Q24H #30 caps 05/30/24 05/30/24 Rx mg capsule,[id number] multphas (Qsymia) venlafaxine 75 mg capsule,extended 75 mg PO DAILY #30 caps 05/30/24 05/30/24 Rx release 24 hr Last Menstrual Period: 02/19/11 Zika: Zika virus screening: Negative : No Have you fallen in the past year?: No PFSH PFSH Medical History Depression with anxiety Goiter Surgical History History of endometrial ablation S/P dilation and curettage S/P gastric surgery Status post breast reduction Family History Grandmother Breast cancer Grandfather Diabetes Social History Smoking Status: Never smoker alcohol intake: current details: occasionally substance use type: does not use caffeine: Yes what type of physical activity do you participate in: walking frequency: 3-4 times per week seatbelt use: always do you feel safe at home: Yes additional social history: Remarried to Rich! 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 History 3 Elective abortions Hx Para 2 Spontaneous abortions 1 Hx # Term Pregnancies Ectopic pregnancies Hx # Pregnancies Multiple births # of living children Past Pregnancies Del. Date Name GA/Weeks Outcome Route Bth Weight Gen Labor Lgth Anesthesia Del Locatn Provider FOB Unknown Vasyl-1989 Unknown Yobany-1993 HPI 3 M FU Details: ALFONSO WILSON is a 64 year old Female presenting for a weight management follow up. her weight is up- she hasn't been walking as much this winter and her sugar cravings are up. cravings are any old times. she is cravings cookies. she doesn't drink any diet pop. she doesn't use artificial sweetners. she still feels benefit form the pill with appetite regulation but cravings are there. she may have boredom or emotions driving cravings. Female Reproductive History Last Menstrual Period: 02/19/11 ROS Const Reports as per HPI, Denies difficulty sleeping, Denies excessive sweating, Denies fatigue (new onset severe) and Denies fever(s) Eyes Denies change in vision and Denies diplopia ENT Denies dizziness Card Denies chest pain, Denies dyspnea, Denies dyspnea on exertion, Denies palpitations and Denies rapid heart rate Resp Denies dyspnea and Denies dyspnea on exertion GI Reports as per HPI, Denies abdominal pain and Denies constipation Musc Denies numbness Neuro No confusion, No dizziness, No memory loss and No numbness Psych Denies confusion, Denies depression, Denies memory loss, Denies mood swings and Denies suicidal ideation Endo Denies excessive sweating, Denies fatigue (new onset severe), Denies palpitations and Reports other (denies symptoms of hypoglycemia) Exam Const General: cooperative, healthy appearing, comfortable and no acute distress Orientation: alert HENMT Head: normal to inspection and normocephalic Eyes General: appearance normal, both eyes and all related structures Neck Neck: normal visual inspection, no lymphadenopathy and trachea midline Thyroid: thyroid normal Resp Effort Inspection: normal respiratory effort Auscultation: clear to auscultation bilaterally Cardio Rate: regular rate Rhythm: regular rhythm Heart Sounds: S1 normal and S2 normal Musc Other: gross motor intact no deficits, full bilateral strength Skin General: no rashes or lesions noted Neuro Motor: muscle tone normal throughout Extrem General: no pedal edema Assessment and Plan Assessment and Plan (1) S/P gastric surgery: Status: Acute Comment: sleeve 2013. lost 55lbs weight regain 3 years after. discussed referral for bariatric revision if desired, consider gaviota en y or consult (more content not included)... Normal [facility] Office Visit Reporton 2024 Office Visit Report [facility] [address] [place] [address] OFFICE VISIT Date of Service: 04/30/24 MR#: [id number] Acct: [id number] Patient: ALFONSO WILSON Rep #: [id number] : 1960 Provider: Dr. Rose Marie florez MD Age/Sex: 64/F Location: [facility] Status: Signed Intake Vital Signs 04/08/24 09:36 04/30/24 08:41 Height 5 ft 6 in 5 ft 6 in Weight: 209 lb 6 oz BMI 33.7 BP 130/82 H Pulse 77 Intake Visit Reasons: 1 M med check Chief Complaint: BP/HR/Weight Check Medical Insurance Claims Specialist Required: No Is patient in pain?: No Allergies Penicillins Adverse Reaction (Verified 04/30/24 08:34) Rash Sulfa (Sulfonamide Antibiotics) Adverse Reaction (Verified 04/30/24 08:34) Rash Medications ???Medication ???Instructions ???Recorded ???Confirmed ???Type levothyroxine 88 mcg tablet 88 mcg PO DAILY 10/11/23 04/30/24 History phentermine 15 mg-topiramate ER 92 1 cap PO Q24H #30 caps 03/05/24 04/30/24 Rx mg capsule,[id number] multphas (Qsymia) venlafaxine 75 mg capsule,extended 75 mg PO DAILY #30 caps 04/11/24 04/30/24 Rx release 24 hr Nursing Note no concerns today and no refills needed per pt. patient seen for obesity related comorbidities/weight management medication follow up. WM questionnaire answers reviewed with patient, and any questions answered. support given to patient consistent with treatment plan. vitals taken and script renewed by provider if appropriate. all relevant findings reviewed with the provider, script renewed if appropriate, and any changes to current treatment as well as the follow up plan reviewed with patient. Questionnaires Weight Management Follow-Up What nutritional plan/diet are you following?: protein veggies How are you tracking your food intake?: flako On average, how many days a week are you recording your food intake?: 3 How many days a week are you staying within your recommended intake goals?: 5 What is your current weekly exercise?: 3 On a scale of 1-10, how difficult is it to follow your current weight management plan?: 5 What are you struggling most with right now in following your weight loss plan?: keeping sugar out of my diet Are there any changes we need to make to your current plan right now?: n/a Side Effects: No Chest Pain, No Palpitations, No Increased Heart Rate, No Irregular Heart Rhythm, No Increased Blood Pressure, No Change in breathing patterns, No Kidney Stones, No Change in vision, No Insomnia, No Difficulty with memory/speech, No Numbness in hands/feet, No New onset severe fatigue, No Nausea/vomiting, No Constipation and No Depressed mood Are there any side effects interfering with quality of life enough you would want to stop medication?: No What's improved for you since losing weight and making your lifestyle change?: n/a Is there anything else we can help you with on your weight loss journey today?: n/a 04/30/24 1640 Date Rose Marie Montanez Signature: Date (if applicable) CC: Christie [facility] Office Visit Reporton 2024 Office Visit Report [facility] [address] [place] [address] OFFICE VISIT Date of Service: 04/08/24 MR#: [id number] Acct: [id number] Patient: ALFONSO WILSON Rep #: [id number] : 1960 Provider: ARSALAN Mclean Age/Sex: 63/F Location: [facility] Status: Signed Intake Vital Signs 03/05/24 09:25 04/03/24 13:30 04/08/24 09:36 Height 5 ft 6 in 5 ft 6 in 5 ft 6 in Weight: 210 lb 4 oz BMI 33.9 BP 133/84 H Pulse 67 Pulse Source Monitor Intake Visit Reasons: 1 M weigh in med check Chief Complaint: BP/HR/Weight Check Medical Insurance Claims Specialist Required: No Is patient in pain?: No Allergies Penicillins Adverse Reaction (Verified 04/08/24 09:34) Rash Sulfa (Sulfonamide Antibiotics) Adverse Reaction (Verified 04/08/24 09:34) Rash Medications ???Medication ???Instructions ???Recorded ???Confirmed ???Type levothyroxine 88 mcg tablet 88 mcg PO DAILY 10/11/23 04/08/24 History venlafaxine 75 mg capsule,extended 75 mg PO DAILY #30 caps 02/11/24 04/08/24 Rx release 24 hr phentermine 15 mg-topiramate ER 92 1 cap PO Q24H #30 caps 03/05/24 04/08/24 Rx mg capsule,ext.[id number] multphas (Qsymia) Post menopausal: No Patient : No Have you fallen in the past year?: No Nurse's Note: Patient is requesting refill sent to [facility] in [place]. She is scheduling 2 NVs and then another provider visit in 3 months. Questionnaires Weight Management Follow-Up What nutritional plan/diet are you following?: Protein/Veggies How are you tracking your food intake?: Count calories/try to keep it same every day On average, how many days a week are you recording your food intake?: 0 How many days a week are you staying within your recommended intake goals?: 4 What is your current weekly exercise?: 3 days for 3 miles if weather permits On a scale of 1-10, how difficult is it to follow your current weight management plan?: 3 What are you struggling most with right now in following your weight loss plan?: Sweets Are there any changes we need to make to your current plan right now?: No Side Effects: No Chest Pain, No Palpitations, No Increased Heart Rate, No Irregular Heart Rhythm, No Increased Blood Pressure, No Change in breathing patterns, No Kidney Stones, No Change in vision, No Insomnia, No Difficulty with memory/speech, No Numbness in hands/feet, No New onset severe fatigue, No Nausea/vomiting, No Constipation and No Depressed mood Are there any side effects interfering with quality of life enough you would want to stop medication?: No What's improved for you since losing weight and making your lifestyle change?: Feel better Is there anything else we can help you with on your weight loss journey today?: NA 04/08/24 1642 Date Tracey Montanez Signature: Date (if applicable) CC: Normal [facility] Patient Coordinator Office Visit Reporton 03-05-2024 Patient Coordinator Office Visit Report [facility]'s [address], [facility] [address] [place] [address] OFFICE VISIT Date of Service: 03/05/24 MR#: [id number] Acct: [id number] Name: ALFONSO WILSON PASCALE Rep #: [id number] : 1960 Provider: ARSALAN Mclean Age/Sex: 63/F Location: [facility] Status: Signed Intake Vital Signs 01/23/24 10:12 03/05/24 09:19 03/05/24 09:25 Height 5 ft 6 in 5 ft 6 in 5 ft 6 in Weight: 207 lb 6 oz BMI 33.5 BP 115/75 Pulse 78 Intake Visit Reasons: Weight management Medical Insurance Claims Specialist Required: No Is patient in pain?: No Allergies Penicillins Adverse Reaction (Verified 03/05/24 09:17) Rash Sulfa (Sulfonamide Antibiotics) Adverse Reaction (Verified 03/05/24 09:17) Rash Medications ???Medication ???Instructions ???Recorded ???Confirmed ???Type levothyroxine 88 mcg tablet 88 mcg PO DAILY 10/11/23 03/05/24 History venlafaxine 75 mg capsule,extended 75 mg PO DAILY #30 caps 02/11/24 03/05/24 Rx release 24 hr phentermine 15 mg-topiramate ER 92 1 cap PO Q24H #30 caps 03/05/24 03/05/24 Rx mg capsule,ext.[id number] multphas (Qsymia) Last Menstrual Period: 02/19/11 Have you fallen in the past year?: No PFSH PFSH Medical History Depression with anxiety Goiter Surgical History History of endometrial ablation S/P dilation and curettage S/P gastric surgery Status post breast reduction Family History Grandmother Breast cancer Grandfather Diabetes Social History Smoking Status: Never smoker alcohol intake: current details: occasionally substance use type: does not use caffeine: Yes what type of physical activity do you participate in: walking frequency: 3-4 times per week seatbelt use: always do you feel safe at home: Yes additional social history: Remarried to [employer]! 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 History 3 Elective abortions Hx Para 2 Spontaneous abortions 1 Hx # Term Pregnancies Ectopic pregnancies Hx # Pregnancies Multiple births # of living children Past Pregnancies Del. Date Name GA/Weeks Outcome Route Bth Weight Gen Labor Lgth Anesthesia Del Locatn Provider FOB Unknown Vasyl-1989 Unknown Yobany-1993 [facility] Weight management Details: ALFONSO WILSON is a 63 year old Female presenting for a weight management follow up. She is doing well. She reports she has been doing great with the medications with no side effects noted. She reports she has been taking this compliantly. She did well during the holiday's with tracking her food. There are times where she does not track as well as it can some times feel overwhelming to her. She has done great with mindful eating. Female Reproductive History Last Menstrual Period: 02/19/11 ROS Const Reports as per HPI, Denies difficulty sleeping, Denies excessive sweating, Denies fatigue (new onset severe) and Denies fever(s) Eyes Denies change in vision and Denies diplopia ENT Denies dizziness Card Denies chest pain, Denies dyspnea, Denies dyspnea on exertion, Denies palpitations and Denies rapid heart rate Resp Denies dyspnea and Denies dyspnea on exertion GI Reports as per HPI, Denies abdominal pain and Denies constipation Musc Denies numbness Neuro No confusion, No dizziness, No memory loss and No numbness Psych Denies confusion, Denies depression, Denies memory loss, Denies mood swings and Denies suicidal ideation Endo Denies excessive sweating, Denies fatigue (new onset severe), Denies palpitations and Reports other (denies symptoms of hypoglycemia) Exam Const General: cooperative, healthy appearing, comfortable and no acute distress Orientation: alert HENMT Head: normal to inspection and normocephalic Eyes General: appearance normal, both eyes and all related structures Neck Neck: normal visual inspection, no lymphadenopathy and trachea midline Thyroid: thyroid normal Resp Effort Inspection: normal respiratory effort Auscultation: clear to auscultation bilaterally Cardio Rate: regular rate Rhythm: regular rhythm Heart Sounds: S1 normal and S2 normal Musc Other: gross motor intact no deficits, full bilateral strength Skin General: no rashes or lesions noted Neuro Motor: muscle tone normal throughout Extrem General: no pedal edema Assessment and Plan Assessment and Plan (1) Other obesity: Status: Acute Comment: [facility], 40-50 net carb nutritional plan. Using Lose it flako. Has a goal to lose another 25 in the next 6 months. Incorporate more vegetables; lean meats; protein. Medication plan: Qsymia-continue; continue current dosing; tolerati (more content not included)... Normal [facility] Patient Coordinator Office Visit Reporton 01-23-2024 Patient Coordinator Office Visit Report [facility]'s [address], [address] [place] [address] OFFICE VISIT Date of Service: 01/23/24 MR#: [id number] Acct: [id number] Name: ALFONSO IWLSON PASCALE Rep #: [id number] : 1960 Provider: ARSALAN Mclean Age/Sex: 63/F Location: [facility] Status: Signed Intake Vital Signs 10/11/23 08:49 12/11/23 13:37 01/23/24 10:08 01/23/24 10:12 Height 5 ft 6 in 5 ft 6 in 5 ft 6 in 5 ft 6 in Weight: 207 lb BMI 33.4 BP 137/84 H Pulse 92 Intake Visit Reasons: 3 M WM Chief Complaint: 3 m f/u Medical Insurance Claims Specialist Required: No Is patient in pain?: No Allergies Penicillins Adverse Reaction (Verified 01/23/24 10:08) Rash Sulfa (Sulfonamide Antibiotics) Adverse Reaction (Verified 01/23/24 10:08) Rash Medications ???Medication ???Instructions ???Recorded ???Confirmed ???Type venlafaxine 75 mg capsule,extended 75 mg PO DAILY #90 caps 03/06/23 01/23/24 Rx release 24 hr levothyroxine 88 mcg tablet 88 mcg PO DAILY 10/11/23 01/23/24 History phentermine 15 mg-topiramate ER 92 1 cap PO Q24H #30 caps 01/23/24 01/23/24 Rx mg capsule,ext.[id number] multphas (Qsymia) Last Menstrual Period: 02/19/11 PFSH PFSH Medical History Depression with anxiety Goiter Surgical History History of endometrial ablation S/P dilation and curettage S/P gastric surgery Status post breast reduction Family History Grandmother Breast cancer Grandfather Diabetes Social History Smoking Status: Never smoker alcohol intake: current details: occasionally substance use type: does not use caffeine: Yes what type of physical activity do you participate in: walking frequency: 3-4 times per week seatbelt use: always do you feel safe at home: Yes additional social history: Remarried to [employer]! 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 History 3 Elective abortions Hx Para 2 Spontaneous abortions 1 Hx # Term Pregnancies Ectopic pregnancies Hx # Pregnancies Multiple births # of living children Past Pregnancies Del. Date Name GA/Weeks Outcome Route Bth Weight [facility] Unknown Vasyl-1989 Unknown Yobany-1993 HPI 3 M WM Details: ALFONSO WILSON is a 63 year old Female presenting for a weight management follow up; she reports she is doing well overall. She is attempting to maintain her weight through the holidays and then once February comes hit the ground running. She reports compliancy to taking medication and denies any side effects noted. Would like to continue. Female Reproductive History Last Menstrual Period: 02/19/11 ROS Const Reports as per HPI, Denies difficulty sleeping, Denies excessive sweating, Denies fatigue (new onset severe) and Denies fever(s) Eyes Denies change in vision and Denies diplopia ENT Denies dizziness Card Denies chest pain, Denies dyspnea, Denies dyspnea on exertion, Denies palpitations and Denies rapid heart rate Resp Denies dyspnea and Denies dyspnea on exertion GI Reports as per HPI, Denies abdominal pain and Denies constipation Musc Denies numbness Neuro No confusion, No dizziness, No memory loss and No numbness Psych Denies confusion, Denies depression, Denies memory loss, Denies mood swings and Denies suicidal ideation Endo Denies excessive sweating, Denies fatigue (new onset severe), Denies palpitations and Reports other (denies symptoms of hypoglycemia) Exam Const General: cooperative, healthy appearing, comfortable and no acute distress Orientation: alert HENMT Head: normal to inspection and normocephalic Eyes General: appearance normal, both eyes and all related structures Neck Neck: normal visual inspection, no lymphadenopathy and trachea midline Thyroid: thyroid normal Resp Effort Inspection: normal respiratory effort Auscultation: clear to auscultation bilaterally Cardio Rate: regular rate Rhythm: regular rhythm Heart Sounds: S1 normal and S2 normal Musc Other: gross motor intact no deficits, full bilateral strength Skin General: no rashes or lesions noted Neuro Motor: muscle tone normal throughout Extrem General: no pedal edema Assessment and Plan Assessment and Plan (1) Other obesity: Status: Acute Comment: Nutrition plan: [facility] 5190-4500, 40-50 net carb nutritional plan. Using Lose it flako. Medication plan: Qsymia; continue current dosing; tolerating well with no side effects. Discussed once she reaches her goals potentially titrating down. control- postmenopausal. Behavior intervention: recommend daily journal of food intake with electronic me (more content not included)... Normal [facility] 25(OH)D3 [facility] 2023 25-hydroxyvitamin D3 [Mass/Vol] 21.8 ng/mL Low 31.0-80.0 [facility] Comment on above: Order Comment: Speci men Type: BLOOD SPECIMEN Ordering Facility: [facility] Address: [address] [place] [address] Result Comment: Clas sification of 25 [place] Vitamin D status: Deficiency/Insufficiency: < or = 30 ng/ml. Sufficiency/Optimal Levels: 31-80 ng/mL Toxicity: > 100 ng/mL. Test performed by chemiluminescent immunoassay. Performed By: #### 1 989-3 #### [facility] CLIA [id number] [address] [place] [address] [place] CBC W Auto Differential pane l (Bld)on 12-28-2023 Basophils (Bld) [#/Vol] 0.04 10*3/uL Normal <0.11 [facility] Comment on above: Order Comment: Angelitoi anabelle Type: BLOOD SPECIMEN Ordering Facility: [facility] Address: [address] [place] [address] Performed By: #### 5 7021-8 #### [facility] CLIA [id number] [address] [place] [address] [place] Basophils/100 WBC (Bld) 0.8 % Normal [facility] Comment on above: Order Comment: Speci men Type: BLOOD SPECIMEN Ordering Facility: [facility] Address: [address] [place] [address] Performed By: #### 5 7021-8 #### [facility] CLIA [id number] [address] [place] [address] [place] Differential cell count method Nom (Bld) Auto Normal [facility] Comment on above: Order Comment: Speci men Type: BLOOD SPECIMEN Ordering Facility: [facility] Address: [address] [place] [address] Performed By: #### 5 7021-8 #### [facility] CLIA [id number] [address] [place] [address] [place] Eosinophils (Bld) [#/Vol] 0.17 10*3/uL Normal <0.46 [facility] Comment on above: Order Comment: Speci men Type: BLOOD SPECIMEN Ordering Facility: [facility] Address: [address] [place] [address] Performed By: #### 5 7021-8 #### [facility] CLIA [id number] [address] [place] [address] [place] Eosinophils/100 WBC (Bld) 3.5 % Normal [facility] Comment on above: Order Comment: Speci men Type: BLOOD SPECIMEN Ordering Facility: [facility] Address: [address] [place] [address] Performed By: #### 5 7021-8 #### [facility] CLIA [id number] [address] [place] [address] [place] Erythrocyte distribution width (RBC) [Ratio] 15.0 % Normal 11.5-15.0 [facility] Comment on above: Order Comment: Speci men Type: BLOOD SPECIMEN Ordering Facility: [facility] Address: [address] [place] [address] Performed By: #### 5 7021-8 #### [facility] CLIA [id number] [address] [place] [address] [place] Hematocrit (Bld) [Volume fraction] 40.4 % Normal 36.0-46.0 [facility] Comment on above: Order Comment: Speci men Type: BLOOD SPECIMEN Ordering Facility: [facility] Address: [address] [place] [address] Performed By: #### 5 7021-8 #### [facility] CLIA [id number] [address] [place] [address] [place] Hemoglobin (Bld) [Mass/Vol] 12.8 g/dL Normal 11.5-15.5 [facility] Comment on above: Order Comment: Speci men Type: BLOOD SPECIMEN Ordering Facility: [facility] Address: [address] [place] [address] Performed By: #### 5 7021-8 #### [facility] CLIA [id number] [address] [place] [address] [place] Immature granulocytes (Bld) [#/Vol] 10*3/uL Normal <0.10 [facility] Comment on above: Order Comment: Speci men Type: BLOOD SPECIMEN Ordering Facility: [facility] Address: [address] [place] [address] Performed By: #### 5 7021-8 #### [facility] CLIA [id number] [address] [place] [address] [place] Immature granulocytes/100 WBC (Bld) 0.2 % Normal [facility] Comment on above: Order Comment: Speci men Type: BLOOD SPECIMEN Ordering Facility: [facility] Address: [address] [place] [address] Performed By: #### 5 7021-8 #### [facility] CLIA [id number] [address] [place] [address] [place] Lymphocytes (Bld) [#/Vol] 1.82 10*3/uL Normal 1.00-4.00 [facility] Comment on above: Order Comment: Speci men Type: BLOOD SPECIMEN Ordering Facility: [facility] Address: [address] [place] [address] Performed By: #### 5 7021-8 #### [facility] CLIA [id number] [address] [place] [address] [place] Lymphocytes/100 WBC (Bld) 37.4 % Normal [facility] Comment on above: Order Comment: Speci men Type: BLOOD SPECIMEN Ordering Facility: [facility] Address: [address] [place] [address] Performed By: #### 5 7021-8 #### [facility] CLIA [id number] [address] [place] [address] [place] MCH (RBC) [Entitic mass] 27.7 pg Normal 26.0-34.0 [facility] Comment on above: Order Comment: Speci men Type: BLOOD SPECIMEN Ordering Facility: [facility] Address: [address] [place] [address] Performed By: #### 5 7021-8 #### [facility] CLIA [id number] [address] [place] [address] [place] MCHC (RBC) [Mass/Vol] 31.7 g/dL Normal 30.5-36.0 [facility] Comment on above: Order Comment: Speci men Type: BLOOD SPECIMEN Ordering Facility: [facility] Address: [address] [place] [address] Performed By: #### 5 7021-8 #### [id number] [address] [place] [address] [place] MCV (RBC) [Entitic vol] 87.4 fL Normal 80.0-100.0 [facility] Comment on above: Order Comment: Speci men Type: BLOOD SPECIMEN Ordering Facility: [facility] Address: [address] [place] [address] Performed By: #### 5 7021-8 #### [facility] CLIA [id number] [address] [place] [address] [place] Monocytes (Bld) [#/Vol] 0.31 10*3/uL Normal <0.87 [facility] Comment on above: Order Comment: Speci men Type: BLOOD SPECIMEN Ordering Facility: [facility] Address: [address] [place], [place] [address] Performed By: #### 5 7021-8 #### [facility] CLIA [id number] [address] [place] [address] [place] Monocytes/100 WBC (Bld) 6.4 % Normal [facility] Comment on above: Order Comment: Speci men Type: BLOOD SPECIMEN Ordering Facility: [facility] Address: [address] [place] [address] Performed By: #### 5 7021-8 #### [facility] CLIA [id number] [address] [place] [address] [place] Neutrophils (Bld) [#/Vol] 2.51 10*3/uL Normal 1.45-7.50 [facility] Comment on above: Order Comment: Speci men Type: BLOOD SPECIMEN Ordering Facility: [facility] Address: [address] [place] [address] Performed By: #### 5 7021-8 #### [facility] CLIA [id number] [address] [place] [address] [place] Neutrophils/100 WBC (Bld) 51.7 % Normal [facility] Comment on above: Order Comment: Speci men Type: BLOOD SPECIMEN Ordering Facility: [facility] Address: [address] [place] [address] Performed By: #### 5 7021-8 #### [facility] CLIA [id number] [address] [place] [address] [place] Nucleated RBC (Bld) [#/Vol] 10*3/uL Normal <0.01 [facility] Comment on above: Order Comment: Speci men Type: BLOOD SPECIMEN Ordering Facility: [facility] Address: [address] [place] [address] Performed By: #### 5 7021-8 #### [facility] CLIA [id number] [address] [place] [address] [place] Nucleated RBC/100 WBC (Bld) [Ratio] 0.0 /100 WBC Normal [facility] Comment on above: Order Comment: Speci men Type: BLOOD SPECIMEN Ordering Facility: [facility] Address: [address] [place] [address] Performed By: #### 5 7021-8 #### [facility] CLIA [id number] [address] [place] [address] [place] Platelet mean volume (Bld) [Entitic vol] 10.4 fL Normal 9.0-12.7 [facility] Comment on above: Order Comment: Speci men Type: BLOOD SPECIMEN Ordering Facility: [facility] Address: [address] [place] [address] Performed By: #### 5 7021-8 #### [facility] CLIA [id number] [address] [place] [address] [place] Platelets (Bld) [#/Vol] 310 10*3/uL Normal 150-400 [facility] Comment on above: Order Comment: Speci men Type: BLOOD SPECIMEN Ordering Facility: [facility] Address: [address] [place] [address] Performed By: #### 5 7021-8 #### [facility] CLIA [id number] [address] [place] [address] [place] RBC (Bld) [#/Vol] 4.62 10*6/uL Normal 3.90-5.20 [facility] Comment on above: Order Comment: Speci men Type: BLOOD SPECIMEN Ordering Facility: [facility] Address: [address] [place] [address] Performed By: #### 5 7021-8 #### [facility] CLIA [id number] [address] [place] [address] [place] WBC (Bld) [#/Vol] 4.86 10*3/uL Normal 3.70-11.00 [facility] Comment on above: Order Comment: Speci men Type: BLOOD SPECIMEN Ordering Facility: [facility] Address: [address] [place] [address] Performed By: #### 5 7021-8 #### [facility] CLIA [id number] [address] [place] [address] [place] Comprehensive metabolic 2000 panelon 12-28-2023 Albumin [Mass/Vol] 4.2 g/dL Normal 3.9-4.9 [facility] Comment on above: Order Comment: Speci men Type: BLOOD SPECIMEN Ordering Facility: [facility] Address: [address] [place] [address] Performed By: #### 2 4323-8 #### [facility] CLIA [id number] [address] [place] [address] [place] ALP [Catalytic activity/Vol] 123 U/L Normal 34-123 [facility] Comment on above: Order Comment: Speci men Type: BLOOD SPECIMEN Ordering Facility: [facility] Address: [address] [place] [address] Performed By: #### 2 4323-8 #### [facility] CLIA [id number] [address] [place] [address] [place] ALT [Catalytic activity/Vol] 10 U/L Normal 7-38 [facility] Comment on above: Order Comment: Speci men Type: BLOOD SPECIMEN Ordering Facility: [facility] Address: [address] [place] [address] Performed By: #### 2 4323-8 #### [facility] CLIA [id number] [address] [place] [address] [place] Anion gap [Moles/Vol] 12 mmol/L Normal 8-15 [facility] Comment on above: Order Comment: Speci men Type: BLOOD SPECIMEN Ordering Facility: [facility] Address: [address] [place] [address] Performed By: #### 2 4323-8 #### [facility] [facility] CLIA [id number] [address] [place] [address] [place] AST [Catalytic activity/Vol] 11 U/L Low 13-35 [facility] Comment on above: Order Comment: Speci men Type: BLOOD SPECIMEN Ordering Facility: [facility] Address: [address] [place] [address] Performed By: #### 2 4323-8 #### [facility] CLIA [id number] [address] [place] [address] [place] Bilirubin [Mass/Vol] 0.5 mg/dL Normal 0.2-1.3 [facility] Comment on above: Order Comment: Speci men Type: BLOOD SPECIMEN Ordering Facility: [facility] Address: [address] [place] [address] Performed By: #### 2 4323-8 #### [facility] CLIA [id number] [address] [place] [address] [place] Calcium [Mass/Vol] 9.2 mg/dL Normal 8.5-10.2 [facility] Comment on above: Order Comment: Speci men Type: BLOOD SPECIMEN Ordering Facility: [facility] Address: [address] [place] [address] Performed By: #### 2 4323-8 #### [facility] CLIA [id number] [address] [place] [address] [place] Chloride [Moles/Vol] 106 mmol/L Normal 98-107 [facility] Comment on above: Order Comment: Speci men Type: BLOOD SPECIMEN Ordering Facility: [facility] Address: [address] [place] [address] Performed By: #### 2 4323-8 #### [facility] CLIA [id number] [address] [place] [address] [place] CO2 [Moles/Vol] 23 mmol/L Normal 22-30 [facility] Comment on above: Order Comment: Speci men Type: BLOOD SPECIMEN Ordering Facility: [facility] Address: [address] [place] [address] Performed By: #### 2 4323-8 #### [facility] CLIA [id number] [address] [place] [address] [place] Creatinine [Mass/Vol] 0.70 mg/dL Normal 0.58-0.96 [facility] Comment on above: Order Comment: Speci men Type: BLOOD SPECIMEN Ordering Facility: [facility] Address: [address] [place] [address] Performed By: #### 2 4323-8 #### [facility] CLIA [id number] [address] [place] [address] [place] Creatinine and Glomerular filtration rate.predicted panel (S/P/Bld) 99 mL/min/1.73m??? Normal >=60 [facility] Comment on above: Order Comment: Speci men Type: BLOOD SPECIMEN Ordering Facility: [facility] Address: [address] [place] [address] Result Comment: Lakia mated Glomerular Filtration Rate (eGFR) is calculated using the 2020 CKD-EPI creatinine equation. This equation utilizes serum creatinine, sex, and age as parameters. The creatinine assay has traceable calibration to isotope dilution-mass spectrometry. Refer to KDIGO guidelines for clinical interpretation. In patients with unstable renal function, e.g. those with acute kidney injury, the eGFR may not accurately reflect actual GFR. Performed By: #### 2 4323-8 #### [facility] CLIA [id number] [address] [place] [address] [place] Glucose [Mass/Vol] 97 mg/dL Normal 74-99 [facility] Comment on above: Order Comment: Speci men Type: BLOOD SPECIMEN Ordering Facility: [facility] Address: [address] [place] [address] Result Comment: The [place] Diabetes Association (ADA) provides guidance for cutoff values for fasting glucose and random glucose. The ADA defines fasting as no caloric intake for at least 8 hours. Fasting plasma glucose results between 100 to 125 mg/dL indicate increased risk for diabetes (prediabetes). Fasting plasma glucose results greater than or equal to 126 mg/dL meet the criteria for diagnosis of diabetes. In the absence of unequivocal hyperglycemia, results should be confirmed by repeat testing. In a patient with classic symptoms of hyperglycemia or hyperglycemic crisis, random plasma glucose results greater than or equal to 200 mg/dL meet the criteria for diagnosis of diabetes. Reference: Standards of Medical Care in Diabetes 2016, [place] Diabetes Association. Diabetes Care. 2016.39(Suppl 1). Performed By: #### 2 4323-8 #### [id number] [address] [place] [address] [place] Potassium [Moles/Vol] 3.9 mmol/L Normal 3.7-5.1 [facility] Comment on above: Order Comment: Speci men Type: BLOOD SPECIMEN Ordering Facility: [facility] Address: [address] [place] [address] Performed By: #### 2 4323-8 #### [facility] [id number] [address] [place] [address] [place] Protein [Mass/Vol] 7.0 g/dL Normal 6.3-8.0 [facility] Comment on above: Order Comment: Speci men Type: BLOOD SPECIMEN Ordering Facility: [facility] Address: [address] [place] [address] Performed By: #### 2 4323-8 #### [facility] CLIA [id number] [address] [place] [address] [place] Sodium [Moles/Vol] 141 mmol/L Normal 136-144 [facility] Comment on above: Order Comment: Speci men Type: BLOOD SPECIMEN Ordering Facility: [facility] Address: [address] [place] [address] Performed By: #### 2 4323-8 #### [facility] CLIA [id number] [address] [place] [address] [place] Urea nitrogen [Mass/Vol] 16 mg/dL Normal 7-21 [facility] Comment on above: Order Comment: Speci men Type: BLOOD SPECIMEN Ordering Facility: [facility] Address: [address] [place] [address] Performed By: #### 2 4323-8 #### [facility] CLIA [id number] [address] [place] [address] [place] Lipid 1996 panelon 4 Cholesterol [Mass/Vol] 206 mg/dL High <200 [facility] Comment on above: Order Comment: Speci men Type: BLOOD SPECIMEN Ordering Facility: [facility] Address: [address] [place] [address] Result Comment: <200 mg/dL, Desirable 200-239 mg/dL, Borderline high >239 mg/dL, High Performed By: #### 2 4331-1 #### [facility] CLIA [id number] [address] [place] [address] [place] [facility] CLIA [id number] [address] [place] [address] [place] #### 3016-3 #### [facility] CLIA [id number] [address] [place] [address] [place] Cholesterol in HDL [Mass/Vol] 57 mg/dL Normal >39 [facility] Comment on above: Order Comment: Speci men Type: BLOOD SPECIMEN Ordering Facility: [facility] Address: [address] [place] [address] Result Comment: 40-5 9 mg/dL, Acceptable >59 mg/dL, High: Negative risk factor for coronary heart disease <40 mg/dL, Low: Positive risk factor for coronary heart disease Performed By: #### 2 4331-1 #### [facility] CLIA [id number] [address] [place] [address] [place] [facility] CLIA [id number] [address] [place] [address] [place] #### 3016-3 #### [facility] CLIA [id number] [address] [place] [address] [place] Cholesterol in LDL [Mass/Vol] 135 mg/dL High <100 [facility] Comment on above: Order Comment: Speci men Type: BLOOD SPECIMEN Ordering Facility: [facility] Address: [address] [place] [address] [address], [place] [address] Result Comment: <100 mg/dL, Optimal 100-129 mg/dL, Near optimal/above optimal 130-159 mg/dL, Borderline high 160-189 mg/dL, High >189 mg/dL, Very high Secondary prevention optimal LDL Cholesterol levels are recommended to be < 70 mg/dL Performed By: #### 2 4331-1 #### [facility] CLIA [id number] [address] [place] [id number] [place] [facility] CLIA [id number] [address] [place] [address] [place] #### 3016-3 #### [facility] CLIA [id number] [address] [place] [address] [place] Cholesterol in LDL/Cholesterol in HDL [Mass ratio] 2.37 {ratio} Normal <2.54 [facility] Comment on above: Order Comment: Saskia ahn Type: BLOOD SPECIMEN Ordering Facility: [facility] Address: [address] [place] [address] [address], [place] [address] Result Comment: Dany patel: 1. National Cholesterol Education Program ATP III Guideline At-A-Glance Quick Desk Reference: National Heart, Lung, and Blood [place]. National Institutes of Health. 2001: NIH Publication No. 01-3305. 2. An International Atherosclerosis Society position paper: global recommendations for the management of dyslipidemia: executive summary, Atherosclerosis. 2014: 232(2):410-413. Performed By: #### 2 4331-1 #### [facility] CLIA [id number] [address] [place] [address] [place] [facility] CLIA [id number] [address] [place] [address] [place] #### 3016-3 #### [facility] CLIA [id number] [address] [place] [id number] [place] Cholesterol in VLDL [Mass/Vol] 14 mg/dL Normal <30 [facility] Comment on above: Order Comment: Saskia ahn Type: BLOOD SPECIMEN Ordering Facility: [facility] Address: [address] [place] [address] Performed By: #### 2 4331-1 #### [facility] CLIA [id number] [address] [place] [address] [place] [facility] CLIA [id number] [address] [place] [address] [place] #### 3016-3 #### [facility] CLIA [id number] [address] [place] [address] [place] Cholesterol non HDL [Mass/Vol] 149 mg/dL High <130 [facility] Comment on above: Order Comment: Saskia ahn Type: BLOOD SPECIMEN Ordering Facility: [facility] Address: [address] [place] [address] Result Comment: <130 mg/dL, Optimal 130-159 mg/dL, Near optimal/above optimal 160-189 mg/dL, Borderline high 190-219 mg/dL, High >219 mg/dL, Very high Secondary prevention optimal non HDL Cholesterol levels are recommended to be <100 mg/dL Performed By: #### 2 4331-1 #### [facility] CLIA [id number] [address] [place] [id number] [place] [facility] CLIA [id number] [address] [place] [address] [place] #### 3016-3 #### [facility] CLIA [id number] [address] [place] [address] [place] Cholesterol.total/Chol esterol in HDL [Mass ratio] 3.61 {ratio} Normal <5.10 [facility] Comment on above: Order Comment: Speci men Type: BLOOD SPECIMEN Ordering Facility: [facility] Address: [address] [place] [address] Performed By: #### 2 4331-1 #### [facility] CLIA [id number] [address] [place] [address] [place] [facility] CLIA [id number] [address] [place] [address] [place] #### 3016-3 #### [facility] CLIA [id number] [address] [place] [address] [place] FASTING TIME 12 hrs Normal [facility] Comment on above: Order Comment: Speci men Type: BLOOD SPECIMEN Ordering Facility: [facility] Address: [address] [place] [address] Performed By: #### 2 4331-1 #### [facility] CLIA [id number] [address] [place] [address] [place] [facility] CLIA [id number] [address] [place] [address] [place] #### 3016-3 #### [facility] CLIA [id number] [address] [place] [address] [place] Triglyceride [Mass/Vol] 70 mg/dL Normal <150 [facility] Comment on above: Order Comment: Speci men Type: BLOOD SPECIMEN Ordering Facility: [facility] Address: [address] [place] [address] Result Comment: <150 mg/dL, Normal 150-199 mg/dL, Borderline high 200-499 mg/dL, High >499 mg/dL, Very high Performed By: #### 2 4331-1 #### [facility] CLIA [id number] [address] [place] [address] [place] [facility] CLIA [id number] [address] [place] [address] [place] #### 3016-3 #### [facility] CLIA [id number] [address] [place] [address] [place] TSH SerPl-aCncon 12-28-2023 TSH Qn 2.900 m[IU]/L Normal 0.270-4.200 [facility] Comment on above: Order Comment: Speci men Type: BLOOD SPECIMEN Ordering Facility: [facility] Address: [address] [place] [address] Performed By: #### 2 4331-1 #### [facility] CLIA [id number] [address] [place] [address] [place] [facility] CLIA [id number] [address] [place] [address] [place] #### 3016-3 #### [facility] CLIA [id number] [address] [place] [address] [place] Patient Coordinator Office Visit Reporton 12-11-2023 Patient Coordinator Office Visit Report [facility] [address], [address] [place] [address] OFFICE VISIT Date of Service: 12/11/23 MR#: [id number] Acct: [id number] Name: ALFONSO WILSON PASCALE Rep #: [id number] : 1960 Provider: Dr. Rose Marie florez MD Age/Sex: 63/F Location: [facility] Status: Signed Intake Vital Signs 10/11/23 08:49 12/11/23 13:37 Height 5 ft 6 in 5 ft 6 in BP 127/82 H Intake Visit Reasons: Colposcopy Chief Complaint: colposcopy Medical Insurance Claims Specialist Required: No Is patient in pain?: No Feel stressed/tense/nervous/a nxious/difficulty sleeping: not at all Allergies Penicillins Adverse Reaction (Verified 12/11/23 13:39) Rash Sulfa (Sulfonamide Antibiotics) Adverse Reaction (Verified 12/11/23 13:39) Rash Medications ???Medication ???Instructions ???Recorded ???Confirmed ???Type venlafaxine 75 mg capsule,extended 75 mg PO DAILY #90 caps 03/06/23 12/11/23 Rx release 24 hr levothyroxine 88 mcg tablet 88 mcg PO DAILY 10/11/23 12/11/23 History phentermine 15 mg-topiramate ER 92 1 cap PO Q24H #30 caps 10/26/23 12/11/23 Rx mg capsule,ext.[id number] multphas (Qsymia) Is last menstrual period known: No Post menopausal: Yes Patient : No : No PFSH PFSH Medical History Depression with anxiety Goiter Surgical History History of endometrial ablation S/P dilation and curettage S/P gastric surgery Status post breast reduction Family History Grandmother Breast cancer Grandfather Diabetes Social History Smoking Status: Never smoker alcohol intake: current details: occasionally substance use type: does not use caffeine: Yes what type of physical activity do you participate in: walking frequency: 3-4 times per week seatbelt use: always do you feel safe at home: Yes additional social history: Remarried to Rich! 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 History 3 Elective abortions Hx Para 2 Spontaneous abortions 1 Hx # Term Pregnancies Ectopic pregnancies Hx # Pregnancies Multiple births # of living children Past Pregnancies Del. Date Name GA/Weeks Outcome Route Bth Weight Infant Gen Labor Lgth Anesthesia Del Locatn Provider FOB Unknown Vasyl-1989 Unknown Yobany-1993 HPI Colposcopy Details: ALFONSO WILSON is a 63 year old who presents for ascus hpv pos psersistent. ROS Const Constitutional: Reports system reviewed and no additional complaints, except as documented; Denies chills, fever(s), weight gain or weight loss GI GI: Reports as per HPI; Denies abdominal pain, bloating, constipation, cramping, nausea or vomiting : Reports as per HPI; Denies urinary frequency, urinary incontinence, urinary urgency, vaginal discharge or vaginal dryness Exam Const General: cooperative, healthy appearing, comfortable and well developed Orientation: alert HENMT Head: normal to inspection Resp Effort Inspection: normal respiratory effort GI Inspection: normal to inspection and non-distended Palpation: soft, no hepatosplenomegaly and no guarding External Female Exam: normal external appearance and normal appearance of the urethra Urethra: normal appearance of the urethra Speculum Exam - Vagina: normal appearance of the vagina, normal vaginal discharge and no lesions Office Procedures Colposcopy Colposcopy Reason for colposcopy: ASCUS and positive HR HPV types Pap/MARGUERITE history: previous ASCUS pap and positive HR HPV Consent Signed: Yes Time out performed: Yes Time: 14:09 Acetowhite epithelium (cervix): 6 o'clock and 8 o'clock Punctation (cervix): none Mosaicism (cervix): none Abnormal vessels (cervix): none Biopsies (cervix): 6 o'clock and 8 o'clock Acetowhite epithelium (vagina): none Punctation (vagina): none Mosaicism (vagina): none Biopsies (vagina): none Cervix+upper/adj vag+bx cervix: Yes biopsy Details: adequate colposcopy dilute acetic acid applied and entire SCJ visualized with above noted findings seen. patient tolerated procedure well without complications. Coding Level of Care Code Attention Radio Frequency Technician Diagnoses Abnormal Pap smear of cervix R87.619 CPT Codes Colposcopy - Cervix+upper/adj vag+bx cervix: Yes (96787) Assessment and Plan Assessment and Plan (1) Abnormal Pap smear of cervix: Status: Acute Comment: repeat pap and hpv 2023- ascus hpv pos, biopsies done at [facility] 12/12. Orders: Orders Colposcopy Today R87.619 - Unspecified abnormal cytological findings in specimens from cervix uteri 12/11/23 1415 Date Rose Marie Ugarte (more content not included)... Normal [facility] SCRN MAMM (CAD)W/PRISCILA BILATo n 12-11-2023 SCRN MAMM (CAD)W/[facility]ILA [facility] Services [address] [place], [place] [address] SCRN MAMM (CAD)W/PRISCILA BILAT MR#: [id number] Acct: [id number] Name: ALFONSO WILSON Rep #: [id number] : 1960 F 63 From: Thaddeus chaudhry MD PCP: Dr. Millie Payton MD Status: [facility] Study: SCRN MAMM (CAD)W/PRISCILA BILAT Date of Exam: 11/20 04/14 Exam# [id number] Ordering Dr: Rose Marie Brush [id number] MAMMOGRAPHY - BILATERAL SCREENING REASON FOR EXAM: Female, 63 years old. Routine annual screening examination. PERTINENT HISTORY: Grandmother with breast cancer. Remote bilateral breast reduction surgery. TECHNIQUE: Digital bilateral breast priscila (3D mammographic acquisition) in the CC and MLO projections. 2-D mediolateral oblique (MLO) and craniocaudad (CC) views of both breasts were obtained. CAD: Full Field Digital Mammography with Computer Added Detection was performed. COMPARISON: Comparison is made with prior study November 23, 2022 and September 30, 2021. FINDINGS: Breast Composition: The breasts are heterogeneously dense, which may obscure small masses. There are no dominant masses or suspicious calcifications. Stable small benign-appearing bilateral axillary lymph nodes. Stable partially calcified nodule in the retroareolar region of the right breast. No other significant abnormalities are identified. There has been no significant change since the prior study. BI/SCRN MAMM (CAD)W/PRISCILA BILAT IMPRESSION: Stable bilateral screening mammogram. Yearly follow-up mammogram recommended. (A) ASSESSMENT CATEGORY: BIRADS Category 2: Benign. A letter regarding these results will be sent to the patient by the facility within 30 days. Approximately 10% of breast cancers are not detected by mammography. A normal mammogram should not delay biopsy of a clinically suspicious abnormality. [id number] Electronically Signed: Thaddeus May MD at 14:12 EDT , CC: Dr. Millie Payton MD; Dr. Rose Marie Brush MD Cloth Inspector: Signed Normal [facility] Surgery Specimen Level Latisha 12-11-2023 Surgery Specimen Level IV Patient Age/Sex Location Account Attending Physician ALFONSO WILSON 63/F [facility] [id number] Dr. Rose Marie Brush MD Specimen: [id number] Received: 12/12/23 Status: CASS Glez Num: [id number] Spec Type: CERV Subm Dr: Dr. Rose Marie Brush MD HEADER OPERATION: Colposcopy PRE-OP DIAGNOSIS: Abnormal pap smear of cervix/ HPV test positive TISSUE SUBMITTED: A- 6o'clock, B- 8o'clock MICROSCOPIC DIAGNOSIS A. Cervix, 6o'clock, biopsy: Rare glandular mucosa present. B. Cervix, 8o'clock, biopsy: Minimal chronic inflammation. HPV change present See comment. AM. 12/13/2023 COMMENT B. Immunohistochemistry ([id number]) for surrogate HPV marker (p16) shows weak, variable, inconclusive staining. Re- biopsy is recommended if clinically indicated. Case has been reviewed in consultation with Dr. Wilson who concurs with the above diagnosis. IDC:YVONNE MICROSCOPIC DESCRIPTION Slides are reviewed. GROSS DESCRIPTION A. Received in fixative is one container labeled with the patient's name and designated 6o'clock. The specimen consists of two irregular fragments of light mucoid material in aggregate measure 0.8 x 0.3 x 0.1 cm. The specimen is totally submitted in one cassette. B. Received in fixative is one container labeled with the patient's name and designated 8o'clock. The specimen consists of multiple irregular fragments of light dumont soft tissue that in aggregate measure 0.5 x 0.3 x 0.1 cm. The specimen is totally submitted in one cassette. YVONNE. 12/12/2023 TC:3 CPT:02587e4 Patient Age/Sex Location Account Attending Physician ALFONSO WILSON 63/F OP [id number] Dr. Rose Marie Brush MD Signed (signature on file) Dr. Aly Lundberg DO 12/14/23 1418 Normal [facility] Comment on above: Performed By: #### P CRESENCIO ####[facility] [id number] [place], [place], [id number] p16 (initial)on 12-11-2023 p16 (initial) ---- Patient Age/Sex Location Account Attending Physician ALFONSO WILSON 63/F [facility] [id number] Dr. Rose Marie Brush MD Specimen: [id number] Received: 12/14/23 Status: CASS Amaris Num: [id number] Spec Type: IMMUNO Subm Dr: Dr. Rose Marie Brush MD PHYSICIAN INSTITUTION [place] [address] SPECIMEN INFORMATION: Tissue Source: B- 8o'clock Clinical Info: Abnormal pap smear of cervix, HPV positive test Specimen Number: [id number] CPT code: 06348,23841 METHODOLOGY: Deparaffinized sections of prefer/formalin-fixed tissue or PAP/DQ stained slides are incubated with monoclonal/polyclonal antibodies/oligonucleoti de probes. Localization is made via biotin free immunoperoxidase method. Appropriate controls are performed and reacted as expected. Results on target cell population are indicated in the following table: RESULTS: ANTIBODY / CLONE RESULT Block B P16 (E6H4) positive, focal, patchy, light stain Ki-67 (30-9) positive, low These tests were developed and their performance characteristics determined by [facility]. They may not have been cleared or approved by the U.S. Food and Drug Administration. The FDA has determined that such clearance or approval is not necessary. The above immunohistochemical/dual FAYE markers are ordered and reviewed by the Pathologist. INTERPRETATION: B. Cervix, 8o'clock, biopsy: HPV change present. Case has been reviewed in consultation with Dr. Wilson who concurs with the above diagnosis. IDC:YVONNE AKHTAR 12/14/2023 Signed (signature on file) Dr. Aly Lundberg, 12/14/23 1458 Normal [facility] Comment on above: Performed By: #### P P16 ####[facility] [address], [address] PAP IG HPV APTIMA 16/18,45on 10-17-2023 ADEQ Comment Normal . [facility] Comment on above: Order Comment: Speci men Comment: [id number] Specimen Comment: Source.............Cervix;Endocervix Specimen Comment: Other..............Post Menopausal Specimen Comment: No. of containers..01 ThinPrep Vial Result Comment: Sati sfactory for evaluation. Endocervical and/or squamous metaplastic cells (endocervical component) are present. Performed By: #### L 7400.0280 #### [facility] [address] [place], [place], [id number] COMM . Normal . [facility] Comment on above: Order Comment: Speci men Comment: [id number] Specimen Comment: Source.............Cervix;Endocervix Specimen Comment: Other..............Post Menopausal Specimen Comment: No. of containers..01 ThinPrep Vial Performed By: #### L 7400.0280 #### [facility] [address] [place], [place], [id number] COMMENT Comment Normal . [facility] Comment on above: Order Comment: Speci men Comment: [id number] Specimen Comment: Source.............Cervix;Endocervix Specimen Comment: Other..............Post Menopausal Specimen Comment: No. of containers..01 ThinPrep Vial Result Comment: This liquid based ThinPrep(R) pap test was screened with the use of an image guided system. Performed By: #### L 7400.0280 #### [facility] [address] [place], [address] DIAG Comment Abnormal . [facility] Comment on above: Order Comment: Speci men Comment: [id number] Specimen Comment: Source.............Cervix;Endocervix Specimen Comment: Other..............Post Menopausal Specimen Comment: No. of containers..01 ThinPrep Vial Result Comment: EPIT HELIAL CELL ABNORMALITY. ATYPICAL SQUAMOUS CELLS OF UNDETERMINED SIGNIFICANCE (ASC-US). CELLULAR CHANGES ASSOCIATED WITH ATROPHY ARE PRESENT. Performed By: #### L 7400.0280 #### [facility] [address] [place], [place], [id number] HPV APTIMA, HR Positive Abnormal Negative [facility] Comment on above: Order Comment: Speci men Comment: [id number] Specimen Comment: Source.............Cervix;Endocervix Specimen Comment: Other..............Post Menopausal Specimen Comment: No. of containers..01 ThinPrep Vial Result Comment: This nucleic acid amplification test detects fourteen high- risk HPV types (16,18,31,33,35,39,45,51,52,56,58,59,66,68) without differentiation. Performed By: #### L 7400.0280 #### [facility] [address] [place], [place], [id number] HPV Roxann Rfx Comment Normal . [facility] Comment on above: Order Comment: Speci men Comment: [id number] Specimen Comment: Source.............Cervix;Endocervix Specimen Comment: Other..............Post Menopausal Specimen Comment: No. of containers..01 ThinPrep Vial Result Comment: Crit eria not met, HPV Genotype not performed. Performed at: - [address] [id number] Social Science Research Assistant: Deanne Trevino MD, Phone: [phone] Performed at: = - [facility] [id number] Social Science Research Assistant: Deanne Trevino MD, Phone: [phone] Performed By: #### L 7400.0280 #### [facility] [address] [facility]. [place], [place], [id number] PAPSMR Comment Normal . [facility] Comment on above: Order Comment: Speci men Comment: [id number] Specimen Comment: Source.............Cervix;Endocervix Specimen Comment: Other..............Post Menopausal Specimen Comment: No. of containers..01 ThinPrep Vial Result Comment: The Pap smear is a screening test designed to aid in the detection of premalignant and malignant conditions of the uterine cervix. It is not a diagnostic procedure and should not be used as the sole means of detecting cervical cancer. Both false-positive and false-negative reports do occur. Performed By: #### L 7400.0280 #### [facility] [address] [place], [address] Path.prov.IDC-9 Comment Normal . [facility] Comment on above: Order Comment: Speci men Comment: [id number] Specimen Comment: Source.............Cervix;Endocervix Specimen Comment: Other..............Post Menopausal Specimen Comment: No. of containers..01 ThinPrep Vial Result Comment: [id number] Performed By: #### L 7400.0280 #### [facility] [address] [place], [address] PERFORM Comment Normal . [facility] Comment on above: Order Comment: Speci men Comment: [id number] Specimen Comment: Source.............Cervix;Endocervix Specimen Comment: Other..............Post Menopausal Specimen Comment: No. of containers..01 ThinPrep Vial Result Comment: Licha Wade, Athletic Monitor (ASCP) Performed By: #### L 7400.0280 #### [facility] [address] [place], [address] SIGN Comment Normal . [facility] Comment on above: Order Comment: Speci men Comment: [id number] Specimen Comment: Source.............Cervix;Endocervix Specimen Comment: Other..............Post Menopausal Specimen Comment: No. of containers..01 ThinPrep Vial Result Comment: Lorena Figueroa MD, Pathologist Performed By: #### L 7400.0280 #### [facility] [address] [place], [place], [address] Patient Coordinator Office Visit Reporton 10-11-2023 Patient Coordinator Office Visit Report [facility] [address] [place] [address], [address] [place] [address] OFFICE VISIT Date of Service: 10/11/23 MR#: [id number] Acct: [id number] Name: ALFONSO WILSON Rep #: [id number] : 1960 Provider: Dr. 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) Medical Insurance Claims Specialist Required: No Is patient in pain?: No Allergies Penicillins Adverse Reaction (Verified 10/11/23 08:44) Rash Sulfa (Sulfonamide Antibiotics) Adverse Reaction (Verified 10/11/23 08:44) Rash Medications ???Medication ???Instructions ???Recorded ???Confirmed ???Type venlafaxine 75 mg capsule,extended 75 mg PO DAILY #90 caps 03/06/23 10/11/23 Rx release 24 hr phentermine 11.25 mg-topiramate ER 1 cap PO DAILY 30 days #30 caps 09/14/23 10/11/23 Rx 69 mg capsule,ext.ltnafou13yj mphas (Qsymia) levothyroxine 88 mcg tablet 88 mcg PO DAILY 10/11/23 10/11/23 History Is last menstrual period known: No Post menopausal: Yes Patient : No : No Control Method: [facility] History Depression with anxiety Goiter Surgical History History of endometrial ablation S/P dilation and curettage S/P gastric surgery Status post breast reduction Family History Grandmother Breast cancer Grandfather Diabetes Social History Smoking Status: Never smoker alcohol intake: current details: occasionally substance use type: does not use caffeine: Yes what type of physical activity do you participate in: walking frequency: 3-4 times per week seatbelt use: always do you feel safe at home: Yes additional social history: Remarried to Rich! 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 History 3 Elective abortions Hx Para 2 Spontaneous abortions 1 Hx # Term Pregnancies Ectopic pregnancies Hx # Pregnancies Multiple births # of living children Past Pregnancies Del. Date Name GA/Weeks Outcome Route Bth Weight Gen [facility] FOB Unknown Vasyl-1989 Unknown Yobany-1993 HPI Encounter for routine gynecological examination Details: ALFONSO WILSON is a 63 year old who presents for annual exam.increasing physical activity, walking and biking, doing well. Last PAP: 2022 History of abnormal PAP: yes Last mammogram: 2022 History of abnormal mammogram: Colon cancer screenin due Other preventative health care screenings: Tata, PCP does screening labs Female Reproductive History Questions: metorrhagia: No, sexually active: Yes, dyspareunia: No and PCB: No Menopausal Symptoms: No hot flashes, No night sweats, No weight change, No mood changes, No difficulty concentrating, No sleep problems and No change in libido ROS Const Constitutional: Reports as per HPI; Denies fatigue, increased appetite, poor appetite, night sweats, weight gain or weight loss Cardio Card: Denies chest pain Resp Resp: Denies cough or dyspnea GI GI: Reports as per HPI; Denies abdominal pain, bloating, constipation, nausea or vomiting : Reports as per HPI and other; Denies difficulty voiding, dysuria, hematuria, hot flashes, nipple discharge, pelvic pain, prolapse symptoms, urinary frequency, urinary incontinence, urinary urgency, vaginal discharge, vaginal dryness, vaginal odor or vaginal pruritus Skin Skin/Breast: Denies changing lesions, breast mass, breast pain, breast skin changes or nipple discharge Psych Psych: Denies anxiety, change in libido, depression or difficulty concentrating Exam Const General: cooperative, healthy appearing, comfortable, no acute distress, well developed and well groomed [facility] Head: normal to inspection and normocephalic Ears: hearing grossly normal bilaterally and external ears normal Nose: external nose normal Face and sinus: normal facial exam Neck Neck: normal visual inspection, full ROM and no lymphadenopathy Thyroid: thyroid normal Chest Chest palpation inspection: normal inspection of the chest Breast inspection: normal inspection of the breasts and normal inspection of the axillae Breast palpation: normal palpation of the breasts, normal palpation of the axillae and no axillary lymphadenopathy Resp Effort Inspection: normal respiratory effort Cardio Rate: regular rate Rhythm: regular rhythm Heart Sounds: S1 normal, S2 normal, no gallops and no murmurs GI Inspection: normal to inspectio (more content not included)... Normal [facility] Office Visit Reporton 2023 Office Visit Report [facility] [address] [place] [address] OFFICE VISIT Date of Service: 09/12/23 MR#: [id number] Acct: [id number] Patient: ALFONSO WILSON Rep #: [id number] : 1960 Provider: Dr. Rose Marie florez MD Age/Sex: 63/F Location: [facility] Status: Signed Intake Vital Signs 03/08/23 16:00 09/12/23 11:28 Height 5 ft 6 in 5 ft 6 in Weight: 230 lb 217 lb 8 oz BMI 37.1 35.1 BP 132/82 H 134/84 H Pulse 80 Intake Visit Reasons: [facility] Medical Insurance Claims Specialist Required: No Is patient in pain?: No Allergies Penicillins Adverse Reaction (Verified 09/12/23 11:29) Rash Sulfa (Sulfonamide Antibiotics) Adverse Reaction (Verified 09/12/23 11:29) Rash Medications ???Medication ???Instructions ???Recorded ???Confirmed ???Type levothyroxine 88 mcg tablet 88 mcg PO DAILY 01/29/14 09/12/23 History venlafaxine 75 mg capsule,extended 75 mg PO DAILY #90 caps 03/06/23 09/12/23 Rx release 24 hr phentermine 7.5 mg-topiramate ER 1 cap PO DAILY #30 caps 07/10/23 09/12/23 Rx 46 mg capsule,ext.release 24hr mphase (Qsymia) phentermine 11.25 mg-topiramate ER 1 cap PO DAILY 30 days #30 caps 09/14/23 09/14/23 Rx 69 mg capsule,ext.[id number] mphas (Qsymia) Is last menstrual period known: No Post menopausal: Yes Patient : No Have you fallen in the past year?: No Current gender identity: female Supplemental Info patient seen for obesity related comorbidities/weight management medication follow up. WM questionnaire answers reviewed with patient, and any questions answered. support given to patient consistent with treatment plan. vitals taken and script renewed by provider if appropriate. all relevant findings reviewed with the provider, script renewed if appropriate, and any changes to current treatment as well as the follow up plan reviewed with patient. Questionnaires Weight Management Follow-Up What nutritional plan/diet are you following?: Counting calories/high protein How are you tracking your food intake?: Flako Lose It On average, how many days a week are you recording your food intake?: 6 How many days a week are you staying within your recommended intake goals?: 6 What is your current weekly exercise?: 3 days On a scale of 1-10, how difficult is it to follow your current weight management plan?: 5 What are you struggling most with right now in following your weight loss plan?: going out to eat with friends Are there any changes we need to make to your current plan right now?: no Side Effects: No Chest Pain, No Palpitations, No Increased Heart Rate, No Irregular Heart Rhythm, No Increased Blood Pressure, No Change in breathing patterns, No Kidney Stones, No Change in vision, No Insomnia, No Difficulty with memory/speech, No Numbness in hands/feet, No New onset severe fatigue, No Nausea/vomiting, No Constipation and No Depressed mood Are there any side effects interfering with quality of life enough you would want to stop medication?: No What's improved for you since losing weight and making your lifestyle change?: given up diet drinks and most nights don't snack at night 09/14/23 0847 Date Rose Marie Mehta Signature: Date (if applicable) CC: Normal [facility] URINE CULTURE [CCL]on 2023 Bacteria identified Cx Nom (U) URCUL See Results Below See Below CULTURE, URINE NORMAL UROGENITAL ONEIDA <10,000 CFU/ml Normal urogenital oneida SOURCE: Urine (Nonspecific) [facility] [address] [place] [address] Dale Benoit III, M.D. [id number] SEND TO IC NO Normal [facility] Comment on above: Performed By: #### 2 43545 #### [facility],[address] [place], [place] [address] Bacteria Ur Culton 4 Bacteria identified Cx Nom (U) ORGANISM ID: 1 <10,000 CFU/ml Normal urogenital oneida Normal [facility] Comment on above: Performed By: #### 6 30-4 #### [facility] CLIA [id number] [address] [place] [address] STATES OF [place] URINALYSIS WITH MICROSCOPYon 08-02-2023 Amorphous NONE Normal [facility] Comment on above: Performed By: #### 2 98746 #### [facility],[address] [place], [place] [address] Bacteria NONE Normal [facility] Comment on above: Performed By: #### 2 04574 #### [facility],[address] [place] [address] Bilirubin Ql (U) Negative Normal NORMAL: NEGATIVE [facility] Comment on above: Performed By: #### 2 49240 #### [facility],[address] [place] [address] Calcium Ox 2+ Normal NORMAL: NONE [facility] Comment on above: Performed By: #### 2 80197 #### [facility],[address] [place] [address] Casts NONE Normal [facility] Comment on above: Performed By: #### 2 31368 #### [facility],[address] [place] [address]26 Clarity (U) CLEAR Normal NORMAL: CLEAR [facility] Comment on above: Performed By: #### 2 58696 #### [facility],[address] [place] [address]74 Color (U) rosa Normal NORMAL: YELLOW [facility] Comment on above: Performed By: #### 2 27495 #### [facility],[address] [place] [address]2835 Crystals LM Nom (Urine sed) SEE BELO Normal [facility] Comment on above: Performed By: #### 2 54415 #### [facility],[address] [place] [address]447 Epi Cells NONE Normal [facility] Comment on above: Performed By: #### 2 12668 #### [facility],[address] [place] [address]80 Glucose Ql (U) NORM Normal NORMAL: NORMAL [facility] Comment on above: Performed By: #### 2 93867 #### [facility],[address] [place] [address]368 Hemoglobin Ql (U) 10 Abnormal NORMAL: NEGATIVE [facility] Comment on above: Performed By: #### 2 01579 #### [facility],[address] [place] [address] 40938 Ketone 15 Abnormal NORMAL: NEGATIVE [facility] Comment on above: Performed By: #### 2 45495 #### [facility],[address] [place] [address]3516 Leukocytes 25 Abnormal NORMAL: NEGATIVE [facility] Comment on above: Result Comment: URIN E MICROSCOPIC Performed By: #### 2 79961 #### [facility],[address] [place] [address] Mucous NONE Normal [facility] Comment on above: Performed By: #### 2 21497 #### [facility],[address] [place] [address]994 Nitrite Ql (U) Negative Normal NORMAL: NEGATIVE [facility] Comment on above: Performed By: #### 2 95664 #### [facility],[address] [place] [address] pH (U) 5 [pH] Normal NORMAL: 5.0-8.0 [facility] Comment on above: Performed By: #### 2 32018 #### [facility],[address] [place] [address] Protein Ql (U) 15 Abnormal NORMAL: NEGATIVE [facility] Comment on above: Performed By: #### 2 06159 #### [facility],[address] [place] [address] Rbc 0-5 Normal 0-3 / hpf [facility] Comment on above: Performed By: #### 2 17219 #### [facility],[address] [place] [address] Sp [place] 1.030 Normal NORMAL: 1.010-1.030 [facility] Comment on above: Performed By: #### 2 13916 #### [facility],[address] [place] [address] Specimen Type R Normal [facility] Comment on above: Performed By: #### 2 20395 #### [facility],[address] [place] [address] URINALYSIS WITH MICROSCOPY Normal [facility] Comment on above: Result Comment: URIN ALYSIS Performed By: #### 2 64662 #### [facility],[address] [place] [address] Urobilinog 1 Abnormal NORMAL: NORMAL [facility] Comment on above: Performed By: #### 2 28135 #### [facility],[address] [place] [address] Wbc 1-5 Normal 0-5 / hpf [facility] Comment on above: Performed By: #### 2 12342 #### [facility],[address] [place], [place] [address] Yeast NONE Normal [facility] Comment on above: Performed By: #### 2 91123 #### [facility],[address] [place], [place] [address] Laboratory - Chemistry and C hemistry - challengeOrdered By: Rose Marie Brush on 03-01-2023 Free T4 [Mass/Vol] 1.21 ng/dL 0.76-1.46 [facility] No Panel InformationOrdered By: Rose Marie Brush on 03-01-2023 Thyroid Stimulating Hormone (TSH) 2.34 uIU/mL 0.358-3.74 [facility] CNPNon 01-01-2023 CNPN Telephone (CARCMN) -------- ALFONSO WILSON ([id number]) 1960 F Date Time Provider Department 01/01/23 VINH KAPADIA CARCMN During your visit today, we recorded the following information about you: Bo Shipley 01/01/2023 9:38 AM Signed ECHO order faxed to [facility] at [phone]. Bo Shipley Allergies As of Date: 01/01/2023 Noted Allergy Reaction PENICILLINS 06/22/2005 2 - Rash SULFA (SULFONAMIDE ANTIBIOTICS) 11/01/2012 2 - Rash 9 - Itching Date Reviewed: 12/26/2022 Reviewed by: Marlene Conrad, DEMETRIO - Fully Assessed Reason for Visit: Orders [681] Prescriptions as of 01/01/2023 - HYDROcodone-acetaminophe n (NORCO) 5-325 mg per tablet - methylPREDNISolone (MEDROL DOSE-PACK) 4 mg Dose-Pack - venlafaxine (EFFEXOR) 75 mg tablet Take 75 mg by mouth once daily. - LEVOXYL 88 MCG TAB Problem List As Of Date 01/01/2023 Noted Resolved S/P endometrial ablation [Z98.890] 08/07/2011 Abnormal perimenopausal bleeding [N92.4] 11/01/2011 Cervical high risk human papillomavirus (HPV) D*08/12/2013 Encounter Status:Closed by BO SHIPLEY on 01/01/23 Normal [facility] Absolute lymphocyte countOrd ered By: Rose Marie Brush on 12-19-2022 Lymphocytes Auto (Unsp spec) [#/Vol] 1.93 10*3/uL 0.83-4.51 [facility] Basophil percentageOrdered B y: Rose Marie Brush on 12-19-2022 Basophils/100 WBC (Bld) 0.8 % 0-1 [facility] Bilirubin [Mass/Vol] 0.40 mg/dL 0.20-1.00 [facility] Comment on above: For patients on eltr ombopag therapy, use of Dimension Mobile TBIL is not recommended. Chloride [Moles/Vol] 107 mmol/L 98-107 [facility] Eosinophils/100 WBC (Bld) 1.9 % 0-5 [facility] Glucose [Mass/Vol] 94 mg/dL 74-106 [facility] Neutrophils (Bld) [#/Vol] 2.8 10*3/uL 2.0-7.7 [facility] Neutrophils/100 WBC (Bld) 53.7 % 47-70 [facility] Potassium [Moles/Vol] 3.9 mmol/L 3.5-5.1 [facility] Protein [Mass/Vol] 7.9 g/dL 6.4-8.2 [facility] Sodium [Moles/Vol] 138 mmol/L 136-145 [facility] WBC (Bld) [#/Vol] 5.2 10*3/uL 4.4-11.0 [facility] Blood erythrocytes count (nu mber/volume)Ordered By: Rose Marie Brush on 12-19-2022 RBC (Bld) [#/Vol] 5.04 10*6/uL 4.2-5.4 [facility] Blood hemoglobin measurement (mass/volume)Ordered By: Rose Marie Brush on 12-19-2022 Hemoglobin (Bld) [Mass/Vol] 13.8 g/dL 12.0-15.0 [facility] Blood lymphocytes/100 leukoc ytesOrdered By: Rose Marie Brush on 12-19-2022 Lymphocytes/100 WBC (Bld) 36.9 % 19-41 [facility] Blood monocytes/100 leukocyt esOrdered By: Rose Marie Brush on 12-19-2022 Monocytes/100 WBC (Bld) 6.5 % 0-10 [facility] Blood platelet mean volumeOr dered By: Rose Marie Brush on 12-19-2022 Platelet mean volume (Bld) [Entitic vol] 10.4 fL 6.2-12.0 [facility] Determination of erythrocyte mean corpuscular volume (MCV)Ordered By: Rose Marie Brush on 12-19-2022 MCV (RBC) [Entitic vol] 87.1 fL 81-99 [facility] Hematocrit Auto (Bld) [Volum e fraction]Ordered By: Rose Marie Brush on 12-19-2022 Hematocrit (Bld) [Volume fraction] 43.9 % 37-47 [facility] Laboratory - Chemistry and C hemistry - challengeOrdered By: Rose Marie Brush on 12-19-2022 ALP [Catalytic activity/Vol] 111 U/L 45-117 [facility] ALT [Catalytic activity/Vol] 23 U/L 13-56 [facility] CO2 [Moles/Vol] 28.0 mmol/L 21.0-32.0 [facility] Globulin (S) [Mass/Vol] 4.3 g/dL 2.2-4.2 [facility] Urea nitrogen/Creatinine [Mass ratio] 17.6 mg/mg 10-20 [facility] - Chemistry and C hemistry - challengeOrdered By: Fabi Alfonso on 12-19-2022 Free T4 [Mass/Vol] 1.55 ng/dL 0.76-1.46 [facility] - Hematology and Cell countsOrdered By: Rose Marie Brush on 12-19-2022 Erythrocyte distribution width (RBC) [Entitic vol] 48.2 fL 35.1-43.9 [facility] Erythrocyte distribution width (RBC) [Ratio] 15.0 % 11.6-14.6 [facility] Immature granulocytes/100 WBC (Bld) 0.200 % 0.0-0.9 [facility] Comment on above: IG% - Immature Granu locytes (promyelocytes, myelocytes and metamyelocytes) > 1% indicates that a LEFT SHIFT is Present. MCH (RBC) [Entitic mass] 27.4 pg 27.0-32.0 [facility] Nucleated RBC/100 WBC (Bld) [Ratio] 0 % 0-5 [facility] MCHC Auto (RBC) [Mass/Vol]Or dered By: Rose Marie Brush on 12-19-2022 MCHC (RBC) [Mass/Vol] 31.4 g/dL 32-36 [facility] No Panel InformationOrdered By: Rose Marie Brush on 12-19-2022 Estimated GFR (MDRD) Amer 103 mL/min >60 [facility] Comment on above: GFR Calc Estimated GFR (MDRD) Non-Af Amer 85 mL/min >60 [facility] Comment on above: Non- GFR Calc Thyroid Stimulating Hormone (TSH) 1.45 uIU/mL 0.358-3.74 [facility] Vitamin D 25-Hydroxy 31.4 ng/mL [facility] Comment on above: Vitamin D 25(OH) Sta tus Range Deficiency <20 ng/mL (50nmol/L) Insufficiency 20 - 30 ng/mL (50 - 75 nmol/L) Sufficiency 30 - 100 ng/mL (75 - 250 nmol/L) Toxicity >100 ng/mL (>250 nmol/L) Platelets bldOrdered By: Justin Brush on 12-19-2022 Platelets (Bld) [#/Vol] 318 10*3/uL 150-450 [facility] Serum or plasma albumin alisa urement (mass/volume)Ordered By: Rose Marie Brush on 12-19-2022 Albumin [Mass/Vol] 3.6 g/dL 3.2-5.0 [facility] Serum or plasma albumin/glob ulin mass ratioOrdered By: Rose Marie Brush on 12-19-2022 Albumin/Globulin [Mass ratio] 0.8 {ratio} 0.9-2.4 [facility] Serum or plasma calcium alisa urement (mass/volume)Ordered By: Rose Marie Brush on 12-19-2022 Calcium [Mass/Vol] 8.7 mg/dL 8.5-10.1 [facility] Serum or plasma creatinine m easurement (mass/volume)Ordered By: Rose Marie Brush on 12-19-2022 Creatinine [Mass/Vol] 0.74 mg/dL 0.55-1.02 [facility] Comment on above: The validity of the calculated GFR & GFRAA in patients over 70 years has not been determined. Clinical correlation is essential. Serum or plasma urea nitroge n measurement (mass/volume)Ordered By: Rose Marie Brush on 12-19-2022 Urea nitrogen [Mass/Vol] 13 mg/dL 7-18 [facility] Thin prep Papanicolaou smear with manual screeningOrdered By: Rose Marie Brush on 12-19-2022 Thin prep Papanicolaou smear with manual screening 11 U/L 15-37 [facility] Thin prep Papanicolaou smear with manual screening 3 5-15 [facility] Whole blood hemoglobin A1c/t otal hemoglobin ratio (mass fraction)Ordered By: Rose Marie Brush on 12-19-2022 HbA1c (Bld) [Mass fraction] 5.6 % 3.8-5.6 [facility] Comment on above: Normal < 5.7 % Predi abetic 5.7 - 6.4 % Diabetic >or= 6.5 % Please note range changes. Cervical or vagninal specime n microscopic examination by cytology stain (reported asOrdered By: Rose Marie Brush on 10-05-2022 Cytology report Cyto stain Doc (Cvx/Vag) Comment . [facility] Comment on above: The Pap smear is a s creening test designed to aid in thedetection of premalignant and malignant conditions of theuterine cervix. It is not a diagnostic procedure andshould not be used as the sole means of detecting cervicalcancer. Both false-positive and false-negative reports dooccur. Detection in cervical specim en of any of human papilloma virus (HPV) 16, 18, 31, 33,Ordered By: Rose Marie Brush on 10-05-2022 HPV 16+18+31+33+35+39+45+5 1+52+56+58+59+66+68 DNA Probe+sig amp Ql (Cvx) Positive Negative [facility] Comment on above: This nucleic acid am plification test detects fourteen high- risk HPV types (16,18,31,33,35,39,45,51,52,56,58,59,66,68)without differentiation. Laboratory - CytologyOrdered By: Rose Marie Brush on 10-05-2022 Consular Officer Cyto stain Nom (Cvx/Vag) [ID] Comment . [facility] Comment on above: Leanna Pate, Cytot echnologist (ASCP) Pathologist Cyto stain Nom (Cvx/Vag) [ID] Comment . [facility] Comment on above: Mandy Figueroa MD, P athologist Laboratory - Miscellaneous t estsOrdered By: Rose Marie Brush on 10-05-2022 Service comment (Unsp spec) [Interp] Comment . [facility] Comment on above: This liquid based Th inPrep(R) pap test was screened withthe use of an image guided system. Service comment (Unsp spec) [Interp] . . [facility] Liquid-based cerv Pap + CT/G C by ABNER w reflex to high-risk HPV for ASCUSOrdered By: Rose Marie Brush on 10-05-2022 Cytology report Cyto stain.thin prep Doc (Cvx/Vag) Comment . [facility] Comment on above: Criteria not met, HP V Genotype not performed.Performed at: - [facility] [id number] Director: Deanne Trevino MD, Phone: [phone] at: = - [facility] [address] [id number] Director: Deanne Trevino MD, Phone: [phone] No Panel InformationOrdered By: Rose Marie Brush on 10-05-2022 Pathology report final diagnosis Narrative Comment . [facility] Comment on above: EPITHELIAL CELL ABNO RMALITY.ATYPICAL SQUAMOUS CELLS OF UNDETERMINED SIGNIFICANCE (ASC-US).CELLULAR CHANGES ASSOCIATED WITH ATROPHY ARE PRESENT. R87.610 MRI BRAIN WO IVCONon 023 [facility] Cervical or vagninal specime n microscopic examination by cytology stain (reported ason 09-30-2021 Cytology report Cyto stain Doc (Cvx/Vag) Comment . [facility] Work Phone: Comment on above: The Pap smear is a s creening test designed to aid in thedetection of premalignant and malignant conditions of theuterine cervix. It is not a diagnostic procedure andshould not be used as the sole means of detecting cervicalcancer. Both false-positive and false-negative reports dooccur. Detection in cervical specim en of any of human papilloma virus (HPV) 16, 18, 31, 33,on 09-30-2021 HPV 16+18+31+33+35+39+45+5 1+52+56+58+59+66+68 DNA Probe+sig amp Ql (Cvx) Positive Negative [facility] Work Phone: Comment on above: This nucleic acid am plification test detects fourteen high- risk HPV types (16,18,31,33,35,39,45,51,52,56,58,59,66,68)without differentiation.Performed at: [address] [id number] Director: Deanne Trevino MD, Phone: [phone] at: =[address] [id number] Director: Deanne Trevino MD, Phone: [phone] Laboratory - Cytologyon 09-19 Consular Officer Cyto stain Nom (Cvx/Vag) [ID] Comment . [facility] Work Phone: Comment on above: Julio Rubio , Athletic Monitor (ASCP) Pathologist Cyto stain Nom (Cvx/Vag) [ID] Comment . [facility] Work Phone: Comment on above: Angela Corea MD, Pa thologist Recommended follow-up Cyto stain Nom (Cvx/Vag) Comment . [facility] Work Phone: Comment on above: Suggest follow up as clinically appropriate. Laboratory - Miscellaneous t estson 09-30-2021 Service comment (Unsp spec) [Interp] Comment . [facility] Work Phone: Comment on above: This liquid based Th inPrep(R) pap test was screened withthe use of an image guided system. Service comment (Unsp spec) [Interp] . . [facility] Work Phone: No Panel Informationon 09-30 Pathology report final diagnosis Narrative Comment . [facility] Work Phone: Comment on above: EPITHELIAL CELL ABNO RMALITY.ATYPICAL SQUAMOUS CELLS OF UNDETERMINED SIGNIFICANCE (ASC-US). R87.610 25-Hydroxy D2+D3on 25-Hydroxy D Total 25.7 ng/mL Low 30.0-100.0 [facility] Comment on above: Performed By: #### D 2D3 #### [facility] [address] [phone] 25-Hydroxy D2 <4.0 Normal [facility] Comment on above: Performed By: #### D 2D3 #### [facility] [address] [phone] 25-Hydroxy D3 25.7 ng/mL Normal [facility] Comment on above: Performed By: #### D 2D3 #### [facility] [address] [phone] Vital Signs Date Time Vital Sign Value Performing Clinician Megan groves 12-26-2022 09:14-0500 Diastolic blood pressure 94 mm[Hg] Vinh Kapadia MD Work Phone: [facility] 12-26-2022 09:14-0500 Systolic blood pressure 155 mm[Hg] Vinh Kapdaia MD Work Phone: [facility] 12-26-2022 09:06-0500 Body height 167.6 cm Vinh Kapadia MD Work Phone: [facility] 12-26-2022 09:06-0500 Body weight 99.79 kg Vinh Kapadia MD Work Phone: [facility] 12-26-2022 09:06-0500 Heart rate 71 /min Vinh Kapadia MD Work Phone: [facility] 12-26-2022 09:06-0500 SaO2% (BldA) [Mass fraction] 98 % Vinh Kapadia MD Work Phone: [facility] 11-23-2022 14:28-0400 Body height 167.[address] Millie Payton Work Phone: [facility] 11-23-2022 14:27-0400 Body mass index (BMI) [Ratio] 36.9 kg/m2 Dr. Millie Payton Work Phone: [facility] 11-23-2022 14:27-0400 Body weight 103.[address] Millie Payton Work Phone: [facility] 11-23-2022 14:27-0400 Diastolic blood pressure 90 mm[Hg] Dr. Millie Payton Work Phone: [facility] 11-23-2022 14:27-0400 Systolic blood pressure 142 mm[Hg] Dr. Millie Payton Work Phone: [facility] 10-05-2022 16:10-0400 Body height 167.[address] Millie Payton Work Phone: [facility] 10-05-2022 16:10-0400 Body mass index (BMI) [Ratio] 36.3 kg/m2 Dr. Millie Payton Work Phone: [facility] 10-05-2022 16:10-0400 Body weight 102.[address] Millie Payton Work Phone: [facility] 10-05-2022 16:10-0400 Diastolic blood pressure 84 mm[Hg] Dr. Millie Payton Work Phone: [facility] 10-05-2022 16:10-0400 Systolic blood pressure 138 mm[Hg] Dr. Millie Payton Work Phone: [facility] 09-30-2021 11:17-0400 Body height 167.[address] Millie Payton Work Phone: [facility] Work Phone: 09-30-2021 11:16-0400 Body mass index (BMI) [Ratio] 36.3 kg/m2 Dr. Millie Payton Work Phone: [facility] Work Phone: 09-30-2021 11:16-0400 Body weight 102.[address] Millie Payton Work Phone: [facility] Work Phone: 09-30-2021 11:16-0400 Diastolic blood pressure 74 mm[Hg] Dr. Millie Payton Work Phone: [facility] Work Phone: 09-30-2021 11:16-0400 Systolic blood pressure 102 mm[Hg] Dr. Millie Payton Work Phone: [facility] Work Phone: 08-09-2021 10:14-0400 Body height 167.6 cm Romero Pelletier MD Work Phone: [facility] 08-09-2021 10:14-0400 Body temperature 97.3 [degF] Romero Pelletier MD Work Phone: [facility] 08-09-2021 10:14-0400 Body weight 94.35 kg Romero Pelletier MD Work Phone: [facility] 08-09-2021 10:14-0400 Diastolic blood pressure 73 mm[Hg] Romero Pelletier MD Work Phone: [facility] 08-09-2021 10:14-0400 Heart rate 64 /min Romero Pelletier MD Work Phone: [facility] 08-09-2021 10:14-0400 Respiratory rate 15 /min Romero Pelletier MD Work Phone: [facility] 08-09-2021 10:14-0400 SaO2% (BldA) [Mass fraction] 99 % Romero Pelletier MD Work Phone: [facility] 08-09-2021 10:14-0400 Systolic blood pressure 144 mm[Hg] Romero Pelletier MD Work Phone: [facility] Encounters Encounter Date Encounter Type Care Provider Facility Start: 08-04-2024 ambulatory Butros Latouf Facility: [facility] Start: 07-15-2024 ambulatory SELF SELF Facility:[facility] Start: 05-30-2024 End: 05-30-2024 ambulatory Rose Marie Marcanthony Facility:[facility] Start: 04-30-2024 End: 04-30-2024 ambulatory Rose Marie Marcanthony Facility:[facility] Start: 04-08-2024 End: 04-08-2024 ambulatory Butros Latouf Facility:[facility] Start: 04-01-2024 ambulatory Butros Latouf Facility: [facility] Start: 03-05-2024 End: 03-05-2024 ambulatory Butros Latouf Facility:[facility] Start: 01-23-2024 End: 01-23-2024 ambulatory Butros Latouf Facility:[facility] Start: 01-21-2024 ambulatory MILLIE MA [facility] Start: 12-31-2023 ambulatory MILLIE MA [facility] Start: 12-31-2023 Encounter for genera l adult medical examination without abnormal findings [facility] Start: 12-28-2023 End: 12-28-2023 ambulatory BUTROS LATOUF Facility:[facility] Start: 12-28-2023 Encounter for genera l adult medical examination without abnormal findings MILLIE [facility] Start: 12-11-2023 End: 12-11-2023 ambulatory Butros Latouf Facility:[facility] Start: 12-11-2023 End: 12-11-2023 ambulatory Rose Marie Marcanthony Facility:[facility] Start: 10-11-2023 End: 10-11-2023 ambulatory Butros Latouf Facility:[facility] Start: 10-11-2023 End: 10-11-2023 ambulatory Rose Marie Brush Facility:[facility] Start: 09-12-2023 End: 09-12-2023 ambulatory Millie Payton Facility:[facility] Start: 08-02-2023 End: 08-02-2023 ambulatory MILLIE PAYTON [facility] Start: 03-01-2023 End: 03-01-[address] Millie Payton Work Phone: [facility] Work Phone: Start: 03-01-2023 End: 03-01-[address] Millie Payton Work Phone: [facility]atory[facility] Start: 02-07-2023 Non-patient / Non-visit Dr. Baltazar Payton Work Phone: [facility] Start: 02-07-2023 End: 02-07-[address] Millie Payton Work Phone: [facility] Work Phone: Start: 02-07-2023 End: 02-07-[address] Millie Payton Work Phone: [facility]-Cardiovascular Services Work Phone: Start: 01-01-2023 Telephone encounter Vinh Aguilar MD Work Phone: Cardiology Comment on above: Orders Start: 12-26-2022 Telephone encounter Vinh Aguilar MD Work Phone: Cardiology Comment on above: Release Of Medical R ecords Start: 12-26-2022 End: 12-26-2022 ambulatory [facility] Work Phone: Cardiology Comment on above: Event (ZIO PATCH) Start: 12-26-2022 End: 12-26-2022 Patient encounter procedure Vinh Kapadia MD Work Phone: Cardiology Comment on above: Abnormal ECG (Primar y Dx); Encounter for screening for cardiovascular disorders; Class 2 obesity due to excess calories without serious comorbidity with body mass index (BMI) of 35.0 to 35.9 in adult; Mixed hyperlipidemia Start: 12-19-2022 End: 12-19-2022 Non-patient / Non-visit Dr. Millie Payton Work Phone: [facility] Work Phone: Start: 12-19-2022 End: 12-19-[address] Millie Payton Work Phone: [facility] Work Phone: Start: 12-19-2022 End: 12-19-[address] Millie Payton Work Phone: [facility]-Pulmonary Services/Neurology Work Phone: Start: 11-23-2022 End: 11-23-[address] Millie Payton Work Phone: [facility] Work Phone: Start: 11-23-2022 End: 11-23-[address] Millie Payton Work Phone: [facility]Outpatient Breast Imaging Work Phone: Start: 10-05-2022 End: 10-05-[address] Millie Payton Work Phone: [facility] Work Phone: Start: 10-05-2022 End: 10-05-[address] Millie Payton Work Phone: [facility]-Laboratory, Specimen Work Phone: Start: 10-05-2022 End: 10-05-[address] Millie Payton Work Phone: [facility] Work Phone: Start: 02-28-2022 Telephone encounter Romero Pelletier MD Work Phone: [facility] Comment on above: Results (MRI) Start: 02-21-2022 End: 02-21-2022 Subsequent hospital visit by physician Mri Radio [facility] (I-Stat/1.5t) Work Phone: Radiology Comment on above: Transient diplopia [ H53.2] Start: 11-07-2021 Telephone encounter Romero Pelletier MD Work Phone: [facility] Comment on above: Insurance Authorizat ion (/ Imaging Order ) Start: 10-07-2021 End: 10-07-[address] Millie Payton Work Phone: [facility] Work Phone: Start: 10-07-2021 End: 10-07-[address] Millie Payton Work Phone: [facility] Start: 09-30-2021 End: 09-30-[address] Millie Payton Work Phone: [facility] Start: 08-09-2021 End: 08-09-2021 Patient encounter procedure Romero Pelletier MD Work Phone: [facility] Comment on above: Transient diplopia ( Primary Dx); Transient cerebral ischemia, unspecified type Procedures Date Procedure Procedure Detail Performing Clinician Start: 11-23-2022 Screening mammography Jax Payton Work Phone: Start: 02-21-2022 Mri brain brain stem w/o contrast material Romero Pelletier MD Work Phone: Start: 10-07-[address] Millie Payton Work Phone: Start: 09-30-2021 Screening mammography Jax Payton Work Phone: Start: 08-05-2021 Adult depression scr eening assessment Romero Pelletier MD Work Phone: Start: 03-17-2017 Mammography Romero Pelletier MD Work Phone: Plan of Treatment Date Care Activity Detail Author Start: 10-20-2022 Covid-19 Vaccine () Covid-19 Vaccine () [facility] Start: 10-20-2022 Influenza vaccination [facility] Start: 10-05-2022 Liquid based cervica l cytology screening [facility] Start: 08-05-2022 Adult depression scr eening assessment DEPRESSION SCREENING [facility] Start: 2022 RSV Vaccine (1 - 1-d ose 60+ series) RSV Vaccine (1 - 1-dose 60+ series) [facility] Start: 02-19-2022 DEPRESSION ASSESSMENT DEPRESSION ASS ESSMENT [facility] Start: 10-20-2021 Influenza vaccination [facility] Start: 09-30-2021 Liquid based cervica l cytology screening [facility] Work Phone: Start: 09-23-2020 COVID-19 VACCINE (3 - Booster for Moderna series) COVID-19 VACCINE (3 - Booster for Moderna series) [facility] Start: 06-18-2020 COVID-19 VACCINE (3 - Booster for Moderna series) COVID-19 VACCINE (3 - Booster for Moderna series) [facility] Start: 04-23-2020 COVID-19 VACCINE (2 - Moderna series) COVID-19 VACCINE (2 - Moderna series) [facility] Start: 03-18-2020 HPV TESTING HPV TESTING [facility] Start: 05-11-2017 PAP TESTING PAP TESTING [facility] Start: 05-05-2017 Mammography [facility] Start: 2012 SHINGRIX VACCINE (1 of 2) SANTILLAN GRIX VACCINE (1 of 2) [facility] Start: 2007 COLOGUARD (FIT-DNA) COLOGUARD (FIT-D NA) [facility] Start: 2007 Colonoscopy COLONOSCOPY [facility] Start: 2007 COLORECTAL CANCER SCREENING COLORECTAL CANCER SCREENING [facility] Start: [address] COLONOGRAPHY [facility] Start: 2007 DIABETES SCREEN DIABETES SCREEN [facility] Start: 2007 Diabetes Screening Diabetes Screenin g [facility] Start: 2007 FECAL OCCULT BLOOD FECAL OCCULT BLOO D [facility] Start: 2007 Lipid 1996 panel - S zoey or Plasma Lipid Screening [facility] Start: 2007 LIPID SCREEN LIPID SCREEN [facility] Start: 2007 SIGMOIDOSCOPY SIGMOIDOSCOPY [facility] Start: 1981 Urine microalbumin profile [facility] Start: 1980 HEPATITIS C SCREENING HEPATITIS C SC LAUREL [facility] End: 12-27-2023 Echocardiography ECHO Cardiology Routine Abnormal ECG Encounter for screening for cardiovascular disorders 1 Occurrences starting 12/26/2022 until 12/27/2023 [facility] Work Phone: Comment on above: 1 Occurrences starti ng 12/26/2022 until 12/27/2023 Glucose [Mass/volume ] in Serum or Plasma [facility] Work Phone: Lipid 1996 panel - S zoey or Plasma [facility] Work Phone: End: 09-08-2022 Mra head w/o contrst material MRA BRAIN WO IVCON Radiology Routine Transient diplopia Transient cerebral ischemia, unspecified type 1 Occurrences starting 08/09/2021 until 09/08/2022 [facility] Work Phone: Comment on above: 1 Occurrences starti ng 08/09/2021 until 09/08/2022 End: 09-08-2022 Mri brain brain stem w/o contrast material MRI BRAIN WO IVCON Radiology Routine Transient diplopia Transient cerebral ischemia, unspecified type 1 Occurrences starting 08/09/2021 until 09/08/2022 [facility] Work Phone: Comment on above: 1 Occurrences starti ng 08/09/2021 until 09/08/2022 OUTSIDE VENDOR CARDI AC OUTPATIENT EXTENDED RHYTHM RECORDING (WITHOUT TELEMETRY) OUTSIDE VENDOR CARDIAC OUTPATIENT EXTENDED RHYTHM RECORDING (WITHOUT TELEMETRY) Holter Routine Abnormal ECG Encounter for screening for cardiovascular disorders Ordered: 12/26/2022 [facility] Work Phone: Comment on above: Ordered: 12/26/2022 Path report.final Dx Spec [facility] Thyroid stimulating hormone measurement [facility] Work Phone: [facility] Payers Date Payer Category Payer Self-pay [id number] 2022 Private Health Insurance [id number] 2021 Unknown [employer] PPO [id number] 2021-Present [phone] [address] [place] [address] PPO [id number] 2021 Unknown [employer] PPO [id number] 2021-Present [phone] [address] [place] [address] PPO [id number] 2003 Unknown [id number] 1962 Unknown [id number] .651 1962 Unknown [id number] [id number] .651 1962 Unknown [id number] [id number] .651 1962 Unknown [id number] 2.16.840.1.360903.3.579.2 .651 1962 Unknown [id number] 2.16.840.1.606958.3.579.2 .594 Unknown [facility] PACK[facility] PLAN [id number] Unknown [id number] 2.16.840.1.946279.3.579.2 .462 Unknown [id number] 2.16.840.1.667944.3.579.2 .462 Unknown [id number] 2.16.840.1.064745.3.579.2 .462 Unknown [id number] 2.16.840.1.062096.3.579.2 .462 Unknown [id number] 2.16.840.1.742984.3.579.2 .462 Unknown [id number] 2.16.840.1.982177.3.579.2 .462 Unknown [id number] 2.16.840.1.489947.3.579.2 .462 Unknown [id number] 2.16.840.1.576743.3.579.2 .462 Unknown [id number] 2.16.840.1.390345.3.579.2 .462 Unknown [id number] 2.16.840.1.397371.3.579.2 .462 Unknown [id number] 2.16.840.1.211076.3.579.2 .462 Unknown [id number] 2.16.840.1.358133.3.579.2 .462 Social History Date Type Detail Facility Start: 12-26-2022 Tobacco smoking stat us NHIS Never smoked tobacco [facility] Start: 08-09-2021 End: 12-26-2022 Alcohol intake Current drinker of alcohol (finding) [facility] Start: 08-09-2021 End: 12-26-2022 Alcohol intake [facility] Start: 1960 Sex Assigned At Female [facility] [facility] Start: 07-30-2021 End: 08-09-2021 Exposure to SARS-CoV-2 (event) Not sure [facility] Start: 09-30-2021 End: 10-05-2022 Tobacco smoking status NHIS Unknown if ever smoked [facility] Start: 09-17-2019 Non-smoker [facility] Start: 08-09-2021 End: 12-26-2022 Tobacco use panel [facility] Adult Depression Screening Assessment 0 [facility] Start: 07-20-2021 Gender identity Identifies as female gender (finding) [facility] Start: 12-26-2022 Tobacco use and exposure Smokeless tobacco non-user [facility] Clinical Notes 08-09-2021 to 01-01-2023 Telephone Encounter - Bo Shipley - 01/01/2023 9:38 AM ESTTelephone Encounter - Bo Shipley - 12/26/2022 12:14 PM Susan Cruz - 12/26/2022 10:43 AM ESTPatient InstructionsPatient Instructions Note Date & Type Note Facility 01-01-2023 Miscellaneous Notes Formattin g of this note might be different from the original. ECHO order faxed to [facility] at [phone]. Bo Shipley documented in this encounter [facility] 12-26-2022 Miscellaneous Notes Formattin g of this note might be different from the original. Office notes faxed to Dr. Payton ([phone]) and Dr. Brush's ([phone])offices. Bo Shipley documented in this encounter [facility] 12-26-2022 History of Presen t illness Narrative EVENT MONITOR DISPOSABLE PATCH INSTRUCTIONS Patient Name: Alfonso Wilson [facility] Number: [id number] Skin prepped and cleansed with alcohol Patch secured to prepped area Monitor Activated Serial #: [id number] Patient Instructed: Prescribed order timeframe Bathing guidelines Usage of event button and diary documentation Return of monitor at the end of prescribed order Call with problems [phone] or [phone] ext. [phone] Patient expresses a good understanding of instructions Susan Marin documented in this encounter [facility] 12-26-2022 Instructions Vinh Kapadia MD - 12/26/2022 [...] 3rd hand smoke.N/A #5 Weight loss : Gordon BMI (Body Mass Index = weight (kg) [...] time was minutes. documented in this encounter [facility] 12-26-2022 History of Presen t illness Narrative Images from the original note were not included. [facility] [place] [facility] SECTION OF CLINICAL CARDIOLOGY OUTPATIENT VISIT DATE December 26, 2022 OUTPATIENT VISIT TYPE NEW PRIMARY CARE PHYSICIAN: Millie Campa) [address] [place] [address] REFERRING PHYSICIAN: Millie Campa) [address] [facility], [place] [address] CHIEF COMPLAINT: Abnormal ECG - Cardiac clearance HISTORY OF PRESENT ILLNESS: NURSING INTAKE: Ms. Wilson is a 62 year old female from [place], [place] here today for cardiovascular evaluation related to abnormal EKG reading. She mentions that before she starts a medication from her VETERANS SERVICE REPRESENTATIVE for weight loss, her OB had her get an EKG done which came back abnormal. Her OB wanted her to see cardiology to ensure everything is okay from a cardiac standpoint prior to starting this medication. This is her first time seeing a plant culture manager. 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 Referred by VETERANS SERVICE REPRESENTATIVE for cardiac clearance prior to initiating phentamine [...] 3rd hand smoke.N/A #5 Weight loss : Gordon BMI (Body Mass Index = weight (kg) [...] - continue to follow up with PCP, VETERANS SERVICE REPRESENTATIVE and RTC as needed Cc: Millie Brush MD CONTACT INFORMATION:Vinh Kapadia M.D, MPH, [facility] [place] [facility] Desk A[address] [place] [address] Office Office Appointments: [phone] documented in this encounter [facility] 10-05-2022 Note [facility] Pap Smear Specimen Adequacy October 05, 2022 11:59pm Comment . Satisfactory for evaluation. Endocervical and/or squamous metaplasticcells (endocervical component) are present. Comment on above: Satisfactory for krishna luation. Endocervical and/or squamous metaplasticcells (endocervical component) are present. 03-03-2022 Miscellaneous Notes Formattin g of this note might be different from the original. Patient is calling again regarding MRI Result. 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 She experienced double vision and some residual symptoms. She wants to make sure are scan is good. Please call [phone] to discuss results and any follow up. CV PHONE Name of caller : Alfonso Relationship to patient : Self If not self Will need patient permission to release results or disclose health information with called documented in fyi. Patient identified by Name and Date of . ( Alfonso Wilson, 1960). Yes Number to return call [phone] Reason for Call: Results: Results Calling office requesting result of MRI test, completed on 02-21-22. Please call patient back at above. Thank you calling [facility] [place]. You will receive a return call within 48 hours ( or 2 business days if close to the weekend). If you feel that this is an urgent issue and needs immediate attention, it is recommended that you contact your primary care provider office or proceed to your nearest Urgent Care Center of Emergency Room ED for evaluation/treatment. documented in this encounter [facility] 02-21-2022 History of Presen t illness Narrative Radiology Service Progress Note PATIENT NAME: Alfonso Wilson DATE OF SERVICE: February 21, 2022 [...] 2022 9:38 AM documented in this encounter [facility] 11-08-2021 Miscellaneous Notes Formattin g of this note might be different from the original. Called and left VM reiterating [facility] policy regarding imaging scheduled at an outside facility. The completion of a Prior Authorization is the responsibility of chosen provider. Office number provided with any further questions or concerns. Leidy Olsen RN CV PHONE Name of caller : Alfonso Relationship to patient : Self If not self Will need patient permission to release results or disclose health information with called documented in fyi. Patient identified by Name and Date of . ( Alfonso Wilson, 1960). Yes Number to return call [phone] Reason for Call : Prior Authorization : Prior Authorization Patient calling to seek Insurance Pre-Authorization number from staff providers office. Patient has physical hard copy of order and is attempting to schedule MRI/MRA Brain at [facility] in [facility] but states both the hospital and the insurance company nGame request a pre-authorization number. Advised patient this would not be the usual process to seek through the doctor's office and provided patient with additional phone number and suggestion for possible solutions but patient would also prefer a call back as well at [phone]. documented in this encounter [facility] 09-30-2021 Note [facility] Work Phone: Pap Smear Specimen Adequacy September 30, 2021 4:50pm Comment . Satisfactory for evaluation. Endocervical and/or squamous metaplasticcells (endocervical component) are present. Comment on above: Satisfactory for krishna luation. Endocervical and/or squamous metaplasticcells (endocervical component) are present. 08-09-2021 Instructions Romero Pelletier MD - 08/09/2021 11:39 AM EDT I [...] we should watch whether this recurs. Romero Pelletier M.D. Staff, [facility] August 09, 2021 11:42 AM documented in this encounter [facility] 08-09-2021 History of Presen t illness Narrative Images from the original note were not included. [facility] Initial Visit Consultation is requested by: SELF PCP: Song Figueroa (Evelio) [address] [place] [address] CEREBROVASCULAR HISTORY Alfonso Wilson is a 61 year old female. [...] patterns makes her queasy, since January 2021. -Vertigo in 12/2020. Spinning sensation, lasted for 2 days could not do anything. Nausea, no vomiting. Laid down, and saw an ENT in [place], and was given exercises. After 4 days, [...] have had a 'mini stroke' 03/10/2019 at [facility], after falling and hitting head a [...] DX&/THER NONOBSTETRIC HIATAL HERNIA REPAIR HX 02/15/2015 NOVMAXIM 2013 FAMILY HISTORY Problem Relation Age of [...] (Temporal) Resp 15 Ht 167.6 cm (5' 6) Wt 94.3 kg (208 lb) LMP 11/23/2013 [...] results found for: HBA1C IMAGING CT head [facility] CT head 03/19/2019 Patient Entered Questionnaires [...] Noncerebrovascular Concern: Yes Details: Traumatic SDH Modified [place] Score: Score: 0 NIH Stroke Scale: LOC: [...] which included preparing to see the patient, [id number] patient care, completing clinical documentation, obtaining and/or reviewing separately obtained history, performing a medically appropriate examination, counseling and educating the patient/family/caregiver and ordering medications, tests, or procedures SIGNATURE Romero Pelletier M.D. Staff, [facility] August 09, 2021 2:06 PM CC SELF Song Figueroa ([facility]) [address] [facility] [address] documented in this encounter [facility] Evaluation note Diagnosis Transient diplopia- Primary Diplopia Transient cerebral ischemia, unspecified type documented [facility] Diagnosis Onset Date Resolution Status Depression with anxiety acut e Fecal incontinence acute HPV test positive acute Obesity acute Encounter for routine gynecological examination noneactive [facility] Work Phone: Evaluation note* Diagnosis Onset Date Resolution Status Abnormal Pap smear of cervix acute HPV test positive acute Encounter for routine gynecological examination noneactive [facility] Work Phone: Evaluation note* Diagnosis Onset Date Resolution Status Abnormal Pap smear of cervix acute HPV test positive acute Encounter for routine gynecological examination noneactive Abnormal Pap smear of cervix acute HPV test positive acute [facility] Work Phone: Evaluation note* Diagnosis Transient diplopia Diplopia Transient cerebral ischemia, unspecified type [facility] Diagnosis Abnormal ECG- Primary Nonspecific abnormal electrocardiogram (ECG) (EKG) Encounter for screening for cardiovascular disorders Screening for other and unspecified cardiovascular conditions [facility] Diagnosis Abnormal ECG- Primary Nonspecific abnormal electrocardiogram (ECG) (EKG) Encounter for screening for cardiovascular disorders Screening for other and unspecified cardiovascular conditions Class 2 obesity due to excess calories without serious comorbidity with body mass index (BMI) of 35.0 to 35.9 in adult Mixed hyperlipidemia documented in this encounter [facility] note* Diagnosis Onset Date Resolution Status Abnormal Pap smear of cervix acute HPV test positive acute [facility] Work Phone: Summary Purpose Family History No Family History Records Found Relationship Condition Age at Onset Recorded Date/T bren grandmother Malignant neoplasm of breast Unknown grandfather Diabetes mellitus Unknown Advance Directives No Advanced Directives Records Found Advance Directive Response Recorded Date/ Time Advance Directives No January 5:11pm Living Will No September 17, 2019 12:46pm Power of Shuttle Hand No September 16 0 12:46pm Advance Directive Response Recorded Date/ Time Advance Directives No January 4:11pm Living Will No September 17, 2019 11:46am Power of Shuttle Hand No September 16 0 11:46am Reason for Referral Specialty Diagnoses / Procedures Referred By Jeremiah t Referred To Contact MR IMAGING Diagnoses Transient diplopia Transient cerebral ischemia, unspecified type Procedures MRA BRAIN WO IVCON MRA, HEAD W/O CONTRAST Romero Pelletier MD [address] [place] [address] Mr Imaging Referral ID Status Reason Start Date Expiration Date Visits Requested Visits Authorized [id number] Pending Review Auto-Generat ed Referral 08/09/2021 09/08/2022 1 1 Specialty Diagnoses / Procedures Referred By Contac t Referred To Contact MR IMAGING Diagnoses Transient diplopia Transient cerebral ischemia, unspecified type Procedures MRI BRAIN WO IVCON MRI BRAIN BRAIN STEM W/O CONTRAST MATERIAL Romero Pelletier MD [address] [place] [address] Mr Imaging Referral ID Status Reason Start Date Expiration Date Visits Requested Visits Authorized [id number] Pending Review Auto-Generat ed Referral 08/09/2021 09/08/2022 1 1 Specialty Diagnoses / Procedures Referred By Contac t Referred To Contact MR IMAGING Diagnoses Transient diplopia Transient cerebral ischemia, unspecified type Procedures MRI BRAIN WO IVCON MRI BRAIN BRAIN STEM W/O CONTRAST MATERIAL Romero Pelletier MD [address] [place] [address] Mr Imaging [place] [address] Referral ID Status Reason Start Date Expiration Date V isits Requested Visits Authorized [id number] Closed Auto-Generate d Referral 11/07/2021 05/06/2022 1 1 Specialty Diagnoses / Procedures Referred By Jeremiah jones Referred To Contact Procedures CARDIOVASCULAR MEDICINE OP FOLLOW UP APPT ORDER Vinh Kapadia MD [address] [place] [address] Referral ID Status Reason Start Date Expiration Date Visits Requested Visits Authorized [id number] Ref Not Required PCP Requested Referral 12/26/2022 12/26/2023 1 1 Specialty Diagnoses / Procedures Referred By Jeremiah jones Referred To Contact [facility] Diagnoses Abnormal ECG Encounter for screening for cardiovascular disorders Procedures ECHO ECHO TTHRC R-T 2D W/WOM-MODE COMPL SPEC&COLR D Vinh Kapadia MD [address] [place] [address] [place] [address] Referral ID Status Reason Start Date Expiration Date Visits Requested Visits Authorized [id number] Pending Review Auto-Generat ed Referral 12/26/2022 12/26/2023 1 1 Chief Complaint and Reason for Visit Chief Complaint SCREENING Annual (VETERANS SERVICE REPRESENTATIVE) Reason for Visit Depression with anxi ety Fecal incontinence HPV test positive Obesity Encounter for routine gynecological examination Chief Complaint SCREENING Annual (VETERANS SERVICE REPRESENTATIVE) ABN MAMM Reason for Visit Depression with anxi ety Fecal incontinence HPV test positive Obesity Encounter for routine gynecological examination Chief Complaint Annual (VETERANS SERVICE REPRESENTATIVE) Reason for Visit Abnormal Pap smear o f cervix HPV test positive Encounter for routine gynecological examination Chief Complaint Annual (VETERANS SERVICE REPRESENTATIVE) SCREENING Colposcopy Body mass index [BMI] 37.0-37.9, adult Reason for Visit Abnormal Pap smear o f cervix HPV test positive Encounter for routine gynecological examination Abnormal Pap smear of cervix HPV test positive Chief Complaint SCREENING Colposcopy Body mass index [BMI] 37.0-37.9, adult PREOP ABNORMAL EKG Reason for Visit Abnormal Pap smear o f cervix HPV test positive Additional Source Comments INFORMATION SOURCE (unrecogn ized section and content) DATE CREATED AUTHOR 10/14/2020 [facility] DATE CREATED AUTHOR AUTHOR'S ORGANIZ ATION 12/30/2023 [facility] DATE CREATED AUTHOR AUTHOR'S ORGANIZ ATION 01/23/2024 [facility] DATE CREATED AUTHOR AUTHOR'S ORGANIZ ATION 07/18/2024 [facility] DATE CREATED AUTHOR AUTHOR'S ORGANIZ ATION 08/02/2024 [facility] Source Comments (unrecognize d section and content) In the event this informatio n is protected by the Federal Confidentiality of Alcohol and Drug Abuse Patient Records regulations: The Federal rules restrict any use of the information to criminally investigate or prosecute any alcohol or drug abuse patient.[facility] the event this information is protected by the Federal Confidentiality of Alcohol and Drug Abuse Patient Records regulations: The Federal rules restrict any use of the information to criminally investigate or prosecute any alcohol or drug abuse patient.[facility] the event this information is protected by the Federal Confidentiality of Alcohol and Drug Abuse Patient Records regulations: The Federal rules restrict any use of the information to criminally investigate or prosecute any alcohol or drug abuse patient.[facility] the event this information is protected by the Federal Confidentiality of Alcohol and Drug Abuse Patient Records regulations: The Federal rules restrict any use of the information to criminally investigate or prosecute any alcohol or drug abuse patient.[facility] the event this information is protected by the Federal Confidentiality of Alcohol and Drug Abuse Patient Records regulations: The Federal rules restrict any use of the information to criminally investigate or prosecute any alcohol or drug abuse patient.[facility] the event this information is protected by the Federal Confidentiality of Alcohol and Drug Abuse Patient Records regulations: The Federal rules restrict any use of the information to criminally investigate or prosecute any alcohol or drug abuse patient.[facility] the event this information is protected by the Federal Confidentiality of Alcohol and Drug Abuse Patient Records regulations: The Federal rules restrict any use of the information to criminally investigate or prosecute any alcohol or drug abuse patient.[facility] the event this information is protected by the Federal Confidentiality of Alcohol and Drug Abuse Patient Records regulations: The Federal rules restrict any use of the information to criminally investigate or prosecute any alcohol or drug abuse patient.[facility] Reason for Visit (unrecogniz ed section and content) Reason Comments New Patient Evaluation Specialty Diagnoses / Procedures Referred By Contact Referred To Contact Neurology / CEREBROVASCULAR Diagnoses Brain bleed (HCC) 9fell hit brain bleed now eposides where left eye wanders Procedures OFFICE/OUTPATIENT NEW MODERATE MDM 45-59 MINUTES NEW NI MEDICAL Self Romero Pelletier MD [address] [place] [address] Referral ID Status Reason Start Date Expiration Date V isits Requested Visits Authorized [id number] Authorized 07/22/2021 07/22/2022 4 4 Reason Comments Insurance Authorization / Imaging Order Reason Comments Results MRI Specialty Diagnoses / Procedures Referred By Contac t Referred To Contact MR IMAGING Diagnoses Transient diplopia Transient cerebral ischemia, unspecified type Procedures MRI BRAIN WO IVCON MRI BRAIN BRAIN STEM W/O CONTRAST MATERIAL Romero Pelletier MD [address] [place] [address] Mr Imaging [place] [address] Referral ID Status Reason Start Date Expiration Date V isits Requested Visits Authorized [id number] Closed Auto-Generate d Referral 11/07/2021 05/06/2022 1 1 Reason Comments Event ZIO PATCH Reason Comments Release Of Medical Records Reason Comments Orders Care Teams (unrecognized sec tion and content) Oracle Database Administrator Relationship Specialty Start Date End Date Latouf, Butros, MD [address] [place] [address] PCP - General Internal Medicine 08/09/21 Oracle Database Administrator Relationship Specialty Start Date End Date Millie Payton MD [address] [place] [address] PCP - General Internal Medicine 08/09/21 Team Status: Active Member Role Status Dates Dr. Song Figueroa MD Family Provider Active Dr. Millie Payton MD Primary Care Provider Active Team Status: Inactive Member Role Status Dates Dr. Millie Payton MD Primary Care Provider, Referrin g Provider Active Dr. Rose Marie Brush MD Attending Provider Active Team Status: Inactive Member Role Status Dates Dr. Millie Payton MD Primary Care Provider Active Dr. Rose Marie Brush MD Attending Provider Active Team Status: Inactive Member Role Status Dates Dr. Millie Payton MD Primary Care Provider Active Dr. Rose Marie Brush MD Attending Provider, Referr ing Provider Active Oracle Database Administrator Relationship Specialty Start Date End Date Millie Payton MD [address] [place] [phone] PCP - General Internal Medicine 08/09/21 Oracle Database Administrator Relationship Specialty Start Date End Date Millie Payton MD [address] [place] [phone] PCP - General Internal Medicine 08/09/21 Vinh Kapadia MD [address] [address] Primary Staff Physician Cardiology 12/26/22 Oracle Database Administrator Relationship Specialty Start Date End Date Millie Payton MD [address] [place] [address] PCP - General Internal Medicine 08/09/21 Vinh Kapadia MD [address] [address] Primary Staff Physician Cardiology 12/26/22 Oracle Database Administrator Relationship Specialty Start Date End Date Millie Payton MD [address] [place] [phone] PCP - General Internal Medicine 08/09/21 Vinh Kapadia MD [address] [address] Primary Staff Physician Cardiology 12/26/22 Team Status: Active Member Role Status Dates Dr. Millie Payton MD Primary Care Provider Active Dr. Jeffery Rose MD Attending Provider Active Dr. Rose Marie Brush MD Referring Provider Active Team Status: Active Member Role Status Dates Dr. Millie Payton MD Primary Care Provider Active Dr. Jeffery Rose MD Attending Provider Active Team Status: Inactive Member Role Status Dates Dr. Millie Payton MD Primary Care Provider Active SHAHANA QUISPE Attending Provider Active Goals (unrecognized section and content) Goals may be documented in a n alternate sectionGoals may be documented in an alternate sectionGoals may be documented in an alternate sectionGoals may be documented in an alternate sectionGoals may be documented in an alternate sectionGoals may be documented in an alternate section FOR RECORDS PERTAINING TO PATIENTS WHO ARE [...] BE BASED ON THE PRIMARY CLINICAL RECORDS. [employer] [facility]. provides no warranty or guarantee of the accuracy or completeness of information in this document.
[2024-08-04] MEDS: Lactated Ringers 1,000 ML 30 ML IV (06:52)
--- NOTE | 2024-08-04 07:10 | PRE.ANES_ITS ---
ASA Classification* ASA Classification ASA Classification: 2 Assessment & Plan Anesthesia* Anesthesia Assessment Anesthesia Assessment: Discussed sedation and/or anesthesia options, risks, benefits, and alternatives with patient/parents/legal guardian/POA. Questions invited. The patient/parents/legal guardian/POA seems to understand and agrees to proceed with anesthesia plan. Reviewed the physical assessment, medical history, allergy history and patient home medications list prior to surgery/procedure/anesthetic and documented any changes. Performed airway and anesthesia risk assessments. Anesthesia Type Anesthesia Type: MAC History Source History Obtained from:: Patient and Chart Anesthesia Focused Assessment* Temperature: 98.0 F Pulse Rate: 78 Blood Pressure: 148/98 Respiratory Rate: 18 Pulse Ox: 98 Oxygen Delivery Method: Room Air Airway Assessment Mouth opens: >3 cm Mallampati Score: I Teeth Condition: Intact Neck Range of motion (ROM): Full ROM Labs Anesthesia Preop lab: CBC WBC 5.2 K/mm3 (4.4-11.0) 12/19/22 09:58 12/19/22 RBC 5.04 M/mm3 (4.2-5.4) 12/19/22 09:58 12/19/22 Hgb 13.8 g/dL (12.0-15.0) 12/19/22 09:58 12/19/22 Hct 43.9 % (37-47) 12/19/22 09:58 12/19/22 Plt Count 318 K/mm3 (150-450) 12/19/22 09:58 12/19/22 CHEMISTRY Potassium 3.9 mmol/L (3.5-5.1) 12/19/22 09:58 12/19/22 Sodium 138 mmol/L (136-145) 12/19/22 09:58 12/19/22 BUN 13 mg/dL (7-18) 12/19/22 09:58 12/19/22 Creatinine 0.74 mg/dL (0.55-1.02) 12/19/22 09:58 12/19/22 Glucose 94 mg/dL (74-106) 12/19/22 09:58 12/19/22 TSH 2.34 uIU/mL (0.358-3.74) 03/01/23 10:20 COAG Pre-Assessment Diagnosis/Proposed Procedure Planned Operative Procedure(s): COLONOSCOPY-OA Anesthesia History Anesthesia History - manager database administration: Anesthesia History - manager database administration Hx Hospitalization No 07/31/24 10:35 Any Problems With Anesthesia No 07/31/24 10:35 Cholinesterase deficiency No 07/31/24 10:35 You/Your Family Experience No 07/31/24 10:35 fever (hyperthermia) with Relationship Recent Exposure to Contagious No 08/04/24 06:48 Disease Does patient have nerve No 07/31/24 10:35 stimulator Patient instructed to have device shut off --Does patient have Pacemaker No 08/04/24 06:48 or ICD? When Was Last Pacemaker Check QUESTION #4 FULL TEXT: You/Your Family Experience fever (hyperthermia) with Anesthesia Last Oral Intake Last Oral intake: Last Oral Intake NPO since 20:30 08/04/24 06:48 Meds taken in AM with sips of Yes 08/04/24 06:48 water? Meds patient instructed to LEVOTHYROXINE 08/04/24 06:48 take am of surgery PONV PONV - manager database administration: PONV - manager database administration Female Yes 07/31/24 10:35 HX of Motion Sickness No 07/31/24 10:35 HX of N/V After Surgery No 07/31/24 10:35 Non-Smoker Yes 07/31/24 10:35 Duration of Surgery greater No 07/31/24 10:35 than 60 minutes Number of Risk Factors 2 07/31/24 10:35 PONV Score Moderate Risk 07/31/24 10:35 Height & Weight Height & Weight: Anesthesia: Height & Weight Height 5 ft 6 in 08/04/24 06:48 Weight: 94 kg 08/04/24 06:48 Body Mass Index (BMI) 33.4 08/04/24 06:48 Respiratory Assessment Respiratory Assessment - manager database administration: Respiratory Tract Infection Hx - manager database administration Hx Respiratory Tract Infection No 07/31/24 10:35 STOP Sleep Apnea STOP Sleep Apnea - manager database administration: STOP Sleep Apnea - manager database administration Hx Hypertension No 07/31/24 10:35 Hx Sleep Apnea No 07/31/24 10:35 CPAP No 04/03/24 13:30 BIPAP No 04/03/24 13:30 Do you snore loudly (louder No 07/31/24 10:35 than talking or can be heard Do you often feel tired/ No 07/31/24 10:35 fatigued/ sleepy during daytime? Has anyone observed you stop No 07/31/24 10:35 breathing during sleep? STOP Results Negative 07/31/24 10:35 QUESTION #5 FULL TEXT : Do you snore loudly (louder than talking or can be heard through closed doors)? 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 Specify any problems Hx of Preganancy in last 3 No 07/31/24 10:35 Months Nurse Filling Out Transfusion VCHRISTIN 07/31/24 10:35 & Questions: Date: 07/31/24 07/31/24 10:35 Time: 10:37 07/31/24 10:35 Patient unable to answer at this time (ie. confused, unrespo /Reproduction History /Reproductive History - manager database administration: /Reproductive Hx- manager database administration Hx Now No 07/31/24 10:35 Gestational Age (in weeks): EDC: Hx Hx Para Hx Section SAB No 07/31/24 10:35 Active Medications Active Medications: Current Medications Generic Name Dose Route Start Last Admin Trade Name Freq PRN Reason Stop Dose Admin Lactated Ringer's 1,000 mls @ 30 mls/hr 08/04/24 06:45 08/04/24 06:52 IV 30 mls/hr .[id number] SUKHDEV Administration PFSH Medical History Wears glasses Wears contact lenses History of steroid therapy Thyroid disease Injury of head and neck Non-smoker History of edema History of echocardiogram Depression with anxiety Goiter Home Medications ?Medication ?Instructions ?Recorded ?Last Taken ?Type venlafaxine 75 mg capsule,extended 75 mg PO DAILY #30 caps 05/30/24 08/03/24 Rx release 24 hr cholecalciferol (vitamin D3) 50 50 mcg PO DAILY 08/03/24 History mcg (2,000 unit) capsule levothyroxine 75 mcg tablet 75 mcg PO DAILY 07/31/24 0 08/04/24 History Allergy/AdvReac Type Severity Reaction Status Date / Time Penicillins AdvReac Rash Verified 07/31/24 10:26 Sulfa (Sulfonamide AdvReac Rash Verified 07/31/24 10:26 Antibiotics) Family History Grandmother Breast cancer Grandfather Diabetes Surgical History Hx of colonoscopy History of endometrial ablation S/P dilation and curettage S/P gastric surgery Status post breast reduction Social History Smoking Status: Never smoker alcohol intake: current details: occasionally substance use type: does not use caffeine: Yes what type of physical activity do you participate in: walking frequency: 3-4 times per week seatbelt use: always do you feel safe at home: Yes additional social history: Remarried to Rich! 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 Review of Systems (Anesthesia) ROS Narrative System reviewed and no additional complaints, except as documented.
--- NOTE | 2024-08-04 07:20 | H&P.OPEN ---
[facility] - General General Date of Service: 08/04/24 HPI Narrative ALFONSO VERDUGO, is a 64 F who presents for screening colonoscopy due history of colon polyps?tubular adenoma. Patient last colonoscopy was [address] Infante, about 4 years ago patient's brother was diagnosed with colon cancer at age 55.. Patient has bowel movements daily denies any blood. Patient denies any chronic abdominal pain/nausea/vomiting/reflux. [facility] Medical History Wears glasses Wears contact lenses History of steroid therapy Thyroid disease Injury of head and neck Non-smoker History of edema History of echocardiogram Depression with anxiety Goiter Home Medications ?Medication ?Instructions ?Recorded ?Last Taken ?Type venlafaxine 75 mg capsule,extended 75 mg PO DAILY #30 caps 05/30/24 08/03/24 Rx release 24 hr cholecalciferol (vitamin D3) 50 50 mcg PO DAILY 07/31/24 08/03/24 History mcg (2,000 unit) capsule levothyroxine 75 mcg tablet 75 mcg PO DAILY 07/31/24 08/04/24 History Allergy/AdvReac Type Severity Reaction Status Date / Time Penicillins AdvReac Rash Verified 07/31/24 10:26 Sulfa (Sulfonamide AdvReac Rash Verified 07/31/24 10:26 Antibiotics) Family History Grandmother Breast cancer Grandfather Diabetes Surgical History Hx of colonoscopy History of endometrial ablation S/P dilation and curettage S/P gastric surgery Status post breast reduction Social History Smoking Status: Never smoker alcohol intake: current details: occasionally substance use type: does not use caffeine: Yes what type of physical activity do you participate in: walking frequency: 3-4 times per week seatbelt use: always do you feel safe at home: Yes additional social history: Remarried to Rich! 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 Past Medical/Surgical History Planned Operation Planned Operative Procedure(s): COLONOSCOPY-OA S.O.S: No Previous Hospitalizations/Surgeries HX Hospitalizations: No HX of Surgeries: bariatric sleeve surgery bilat breast reduction D&C x2 uterine ablation Any Problems With Anesthesia: No You/Your Family Experience Fever (Hyperthermia) With Anes: No Cholinesterase deficiency: No Cardiovascular Hx Chest Pain within Last 2 months: No Hx of Irregular Heartbeat and/or Afib: No Hx Heart Attack: No Hx Congestive Heart Failure: No Hx Rheumatic Fever: No Hx Hypertension: No Hx Internal Defibrillator: No Hx Pacemaker: No Hx Cardiac Catheterization: No Hx Cardiac Surgery/Stents/Etc.: No Hx Stress Test: No Hx Pain in Legs when Walking/Leg Cramps: No Respiratory Chronic Cough: No HX of Shortness of Breath: No Hoarseness: No Hx Chronic Obstructive Pulmonary Disease (COPD): No Hx Asthma: No Hx Emphysema: No Hx Sleep Apnea: No CPAP: No BIPAP: No Hx Respiratory Tract Infection/Cold (presently): No Do You Snore Loudly (louder than talking or can be heard): No Do You Often Feel Tired/ Fatigued/ Sleepy Dring Daytime?: No Has Anyone Observed You Stop Breathing During Sleep?: No Result (for STOP score): Negative Hx Smoking: No Smoking Status: Never smoker Gastrointestinal Hx Gastrointestinal Disorders: No (hx bariatric surgery) Hx Gastrointestinal Bleed: No Hx Ulcer: No Hx Hiatal Hernia: Yes (repaired with bariatric surgery) Difficulty Chewing/Swallowing: No Special diet followed at home: No (smaller meals) Hx Unplanned Weight Loss of 20#: No HX Unplanned Weight Gain of 20#: No Neurological Hx Seizures: No HX Syncope/Blackout Spells/Unconsciousness: No Hx Transient Ischemic Attacks (TIA): No Hx Multiple Sclerosis: No Hx Parkinson's Disease: No Hx Head/Neck Injury: No Hx Headaches: No Hx Back Injury/Pain: No Recent Onset of Speech Difficulty: No Restless Legs: No Does patient have nerve stimulator: No Blood Disorder Hx Leukemia: No Bleeding Tendencies: No Hx Deep Vein Thrombosis: No Hx High Cholesterol: No Blood Transmitted Disease: No Hx Hepatitis: No Hx Cirrhosis: No Hx Anemia: No Hx Blood Disorders: No Reproduction : No Is Patient Lactating: No Hx Hysterectomy: No Hx Tubal Ligation: No Are You Post Menopause: Yes Genitourinary Hx Renal Disease: No Musculoskeletal Hx Arthritis: No Hx Rheumatoid Arthritis: No Hx Gout: No Recent Onset of an Orthopedic Problem: No Endocrine Hx Diabetes: No Thyroid Disease: Yes (ON MEDS) Hx Steroid Therapy: No Psycho/Social Hx Substance Use: No Hx Alcohol Use: No Hx Anxiety: Yes (on med) Hx Depression: Yes (on med) Mental Illness: No Hx Dementia: No Miscellaneous Hx Cancer: Yes (SKIN CA) Recent Exposure to Contagious Disease: No Hx of C-Diff: No Any Loose Teeth: No Allergies Penicillins Adverse Reaction (Verified 07/31/24 10:26) Rash Sulfa (Sulfonamide Antibiotics) Adverse Reaction (Verified 07/31/24 10:26) Rash Discharge Is Pt Admitted From a Residential, or a Residential: No After D/C, Where Do you Plan to Go: Return Home From the PAT History Number of Risk Factors: 4 Vital Signs Vital Signs Vital Signs: 08/04/24 06:48 08/04/24 06:48 08/04/24 07:15 Temperature 98.0 F 98.0 F Temperature Source Temporal Pulse Rate 78 78 Respiratory Rate 18 18 Respiratory Pattern Normal Blood Pressure 148/98 H 148/98 H Blood Pressure Mean 114 Blood Pressure Source Monitor Blood Pressure Position Semi-Fowlers Blood Pressure Location Right Arm Pulse Ox 98 98 Oxygen Delivery Method Room Air Room Air Weight Weight: 207 lb 3.752 oz Body Mass Index (BMI) 33.4 Physical Exam Const alert, oriented x3 and no apparent distress HEENT normocephalic and head/scalp atraumatic Resp normal respiratory effort Cardio regular rate GI soft to palpation and non-tender; Negative for non-distended Palpation: Negative for guarding Extremity no clubbing, cyanosis or edema Skin no rashes or lesions noted Neuro CN's II-XII intact bilaterally Psych mental status grossly normal Assessment & Plan Assessment/Plan (1) Family history of colon cancer: (2) Hx of colonic polyps: Surgery Risks - Colonoscopy I discussed with the patient the risks of the procedure: Yes Risks Include but are not Limited To: Risks include but are not limited to: Bleeding, perforation requiring further surgery, inability to complete colonoscopy requiring barium enema.
--- NOTE | 2024-08-04 07:30 | COLBX_PTH ---
PATIENT: ALFONSO VERDUGO LOC: EN U#:[id number] AGE/SX: 64/F ROOM: RE08/04/[address]: Dr. Maryellen Lopez MD : 1960 BED: DIS: 08/04/2024 SPEC #: [id number] RECD: 08/04/24 10:41 STATUS: CASS ERICA #: [id number] MATA: 08/04/24 07:[address]: Maryellen Lopez DEPT: SURGICAL PATHOLOGY RECD BY: Idris Solares ENTERED: 08/04/24 11:32 SP TYPE: COLON BX OTHR DR: Dr. Mirian Payton MD Tissues: A - Descending colon Procedures: Surgery Specimen Level IV HEADER OPERATION: Colonoscopy with biopsy PRE-OP DIAGNOSIS: Family history of colon cancer, history of colonic polyps TISSUE SUBMITTED: A- Descending colon polyp biopsy MICROSCOPIC DIAGNOSIS A. Descending colon, polyp, biopsy: Tubular adenoma. MICROSCOPIC DESCRIPTION Slides are reviewed. GROSS DESCRIPTION A. Received in fixative is one container labeled with the patient's name and designated Descending colon polyp biopsy. The specimen consists of one irregular fragment of light dumont soft tissue that measures 0.3 cm admixed with vegetable material. The specimen is totally submitted in one cassette. FLO/ 08/04/2024 CPT:19432
--- NOTE | 2024-08-04 08:03 | OP.COLON_ITS ---
Patient Name: Nuvia Wilson Procedure Date: 08/04/2024 7:27 AM Date of : 1960 Age: 64 Procedure: Colonoscopy Indications: High risk colon cancer surveillance: Personal history of colonic polyps, Family history of colon cancer in a first-degree relative before age 60 years Providers: Maryellen Lopez MD Referring MD: Mirian Payton Medicines: Monitored Anesthesia Care Patient Profile: This is a 64 year old female. Last Colonoscopy: 5 years ago. Complications: No immediate complications. Procedure: Pre-Anesthesia Assessment: - Prior to the procedure, a History and Physical was performed, and patient medications and allergies were reviewed. The patient's tolerance of previous anesthesia was also reviewed. The risks and benefits of the procedure and the sedation options and risks were discussed with the patient. All questions were answered, and informed consent was obtained. Prior Anticoagulants: The patient has taken no anticoagulant or antiplatelet agents. ASA Grade Assessment: Per anesthesia. After reviewing the risks and benefits, the patient was deemed in satisfactory condition to undergo the procedure. After I obtained informed consent, the scope was passed under direct vision. Throughout the procedure, the patient's blood pressure, pulse, and oxygen saturations were monitored continuously. The colonoscope was introduced through the anus and advanced to the cecum, identified by the appendiceal orifice, ileocecal valve and palpation. The colonoscopy was performed without difficulty. The patient tolerated the procedure well. The quality of the bowel preparation was good. Scope In: 7:41:17 AM Scope Withdrawal Time 0 hours 10 minutes 55 seconds Scope Out: 7:57:19 AM Total Procedure Duration Time 0 hours 16 minutes 2 seconds Findings: The perianal and digital rectal examinations were normal. A less than 5 mm polyp was found in the descending colon. The polyp was semi-pedunculated. The polyp was removed with a hot snare. Resection and retrieval were complete. The exam was otherwise without abnormality on direct and retroflexion views. Impression: - One less than 5 mm polyp in the descending colon, removed with a hot snare. Resected and retrieved. - The examination was otherwise normal on direct and retroflexion views. Recommendation: - Discharge patient to home. - Resume previous diet. - Continue present medications. - Await pathology results. - Repeat colonoscopy in 3 years for surveillance based on pathology results. Procedure Code(s): --- Professional --- 80169, PT, Colonoscopy, flexible; with removal of tumor(s), polyp(s), or other lesion(s) by snare technique Diagnosis Code(s): --- Professional --- Z86.010, Personal history of colonic polyps D12.4, Benign neoplasm of descending colon Z80.0, Family history of malignant neoplasm of digestive organs CPT copyright 2021 [employer]. All rights reserved. The codes documented in this report are preliminary and upon puller over review may be revised to meet current compliance requirements. MD Maryellen Ramires MD 08/04/2024 8:03:27 AM This report has been signed electronically. Number of Addenda: 0 Note Initiated On: 08/04/2024 7:27 AM
--- NOTE | 2024-08-04 08:04 | OP.CCLET_ITS ---
08/04/2024 Mirian Payton Re : Colonoscopy procedure for Nuvia Wilson Dear Tata This procedure was performed on Sunday, August 04, 2024. My impressions and recommendations are as follows: Impressions : - One less than 5 mm polyp in the descending colon, removed with a hot snare. Resected and retrieved. - The examination was otherwise normal on direct and retroflexion views. Recommendations : - Discharge patient to home. - Resume previous diet. - Continue present medications. - Await pathology results. - Repeat colonoscopy in 3 years for surveillance based on pathology results. My findings are described in the full procedure note, which is enclosed. If I can be of further assistance, please feel free to contact me at Doctor phone number(s): , Work: . Sincerely, MD Maryellen Ramires MD 08/04/2024 8:03:27 AM This report has been signed electronically.
--- NOTE | 2024-08-04 08:10 | PCM.POST.ANE ---
Anesthesia: Postop Eval I Current Vital Signs Temperature: 98.5 F Pulse Rate: 62 Blood Pressure: 109/65 Respiratory Rate: 16 Pulse Ox: 99 Oxygen Delivery Method: Room Air Assessment Airway patent: Yes Spontaneous unlabored respirations: Yes Mental status: Awake and Calm nausea: No Vomiting: No Anesthesia Complication: No Fluid Hydration Crystalloid volume administer (ml): 800 Total IV fluid infused: 800 Progress Note Anesthesia document: Postop Eval 1 completed: Yes
--- NOTE | 2024-08-04 12:28 | PCM.POSTANE2 ---
Anesthesia Postop Eval I Sum Postop Eval Completion status Anesthesia document: Postop Eval 1 completed: Yes Anesthesia Postop Eval I Summary Anesthesia Postop Eval I Summary: Anesthesia Postop Eval I: Assessment Summary Airway patent Yes 08/04/24 08:11 [email or web address] Spontaneous unlabored Yes 08/04/24 08:11 [email or web address] respirations Mental status Awake,Calm 08/04/24 08:11 [email or web address] nausea No 08/04/24 08:11 [email or web address] Vomiting No 08/04/24 08:11 [email or web address] Anesthesia Postop Eval I: Fluid Summary Crystalloid volume administer 800 08/04/24 08:11 [email or web address] (ml) Colloids volume administered ( ml) Blood Product volume administered (ml) Total IV fluid infused 800 08/04/24 08:11 [email or web address] Anesthesia Postop Eval I: Summary Notes Anesthesia Complication No 08/04/24 08:11 [email or web address] Anesthesia Complication Comment: Post-operative progress note Anesthesia: Postop Eval II Evaluation Mental status: Awake and Calm Pain Level: 0 nausea: No Vomiting: No Complications Anesthesia Complication: No
== END 2024-08-04 08:41 | disposition home or self-care (01) ==
LOC: EN 06:26 → AC 06:28
PROVIDERS: PCP Internal Medicine; Referring Provider Internal Medicine; Visit Provider Surgery
PROC: 0DJD8ZZ Inspection of Lower Intestinal Tract, Via Natural or Artificial Opening Endoscopic (ICD-10-PCS; CPT 45378; principal; 2024-08-04 07:25)
DX: Z12.11 Encounter for screening for malignant neoplasm of colon (principal); Z86.0100 Personal history of colon polyps, unspecified; Z79.890 Hormone replacement therapy; Z80.0 Family history of malignant neoplasm of digestive organs; E07.9 Disorder of thyroid, unspecified; D12.4 Benign neoplasm of descending colon
CPT/HCPCS: 45385; 88305; J2405

== ENCOUNTER 2024-08-13 10:41 | Emergency (ER) | payer OTHER, SELFPAY ==
[2024-08-13 10:41] VITALS: BP 140/92; PULSE 68; RESP 16; TEMP 36.6; O2SAT 99; BMI 33.4
--- NOTE | 2024-08-13 12:51 | US_ITS ---
PROCEDURE: ABDOMEN LIMITED 08/13/2024 REASON FOR EXAM: RUQ PAIN TECHNIQUE: ABDOMEN LIMITED COMPARISON: None FINDINGS: GALLBLADDER: Multiple gallstones. There is gallbladder sludge. No gallbladder wall thickening or pericholecystic fluid. Negative Mendoza sign. COMMON BILE DUCT: Measures 4.6 mm. No intrahepatic biliary dilatation. LIVER: Normal size. Normal echotexture. No definite hepatic mass. RIGHT KIDNEY: Normal in size and echogenicity. No mass. No urinary stones. No hydronephrosis. Nonspecific echogenic pancreas. US/Abdomen Limited IMPRESSION: Cholelithiasis without acute cholecystitis. Nonspecific echogenic pancreas. Reading Location: [id number]
[2024-08-13] MEDS: 0.9% Normal Saline (1000mL) 1,000 ML 999 ML IV (12:53)
[2024-08-13 12:55] VITALS: BP 139/63
[2024-08-13 12:55] LABS: Bacteria 0 SEEN /hpf (None Seen); Mucous, Urine 0 SEEN /hpf (<or=2+); Red Blood Cells-Urine 0 SEEN /hpf (0-5)
[2024-08-13 13:02] LABS: Absolute Lymphocyte Count 1.87 X10^3/uL (0.83-4.51); Absolute Neutrophil Count 3.6 X10^3/uL (2.0-7.7); Basophil# 0.04 X10^3/uL; Basophil% 0.7 % (0-1); Eosinophil# 0.13 X10^3/uL; Eosinophils% 2.2 % (0-5); Hematocrit 43.2 % (37-47); Hemoglobin 13.5 g/dL (12.0-15.0); Lymphocyte # 1.87 X10^3/ul (0.83-4.51); Lymphocyte % 31.3 % (19-41); Mean Corp Hgb Conc 31.3 g/dL (32-36); Mean Corpuscular Hgb 27.7 pg (27.0-32.0); Mean Corpuscular Volume 88.5 fL (81-99); Mean Platelet Vol. 10.6 fl (6.2-12.0); Monocyte# 0.36 X10^3/uL; NRBC Flagged by Analyzer 0 % (0-5); Neutrophil # 3.56 X10^3/uL (2.7-7.7); Neutrophil % 59.5 % (47-70); Platelet Count 306 K/mm3 (150-450); RBC Distribution Width SD 48.9 fl (35.1-43.9); Red Blood Count 4.88 M/mm3 (4.2-5.4)
[2024-08-13 13:06] LABS: Color, Urine Yellow (Yellow); Glucose, Dipstick Normal (Normal); Ketone-Dipstick Negative (Negative); Leukocyte Esterase-Dipstick 100 /ul (Negative); Nitrite-Dipstick Negative (Negative); Occult Blood-Urine Negative /ul (Negative); Protein-Dipstick Negative (Negative); Urine Bilirubin Dipstick Negative (Negative); Urine Clarity Sl. Cloudy (Clear); Urine Urobilinogen Normal (Normal)
--- NOTE | 2024-08-13 13:06 | EX.ED.DYSGE1 ---
HPI History of Present Illness Chief Complaint: Abd Pain Narrative Narrative: Patient is a 64-year-old female with past medical history anxiety, depression, thyroid disease who presented to the emergency department with chief complaint of abdominal pain. Patient states that she has had abdominal pain for at least a month now if not longer and notes that she feels like it has been progressively worsening. States that last week she had a colonoscopy with 1 polyp removed and called the [employer]'s [employer] boys[employer] clothing salesperson office and they state that she should not still be having pain from this. They advised her to go to the emergency department to be evaluated. Patient also notes that she is going on vacation next week and given that this is worsening does not want to end up in the ER down there on vacation therefore she came here also to be evaluated. Patient states that her pain does not get exacerbated with eating. [facility] Medical History Wears glasses Wears contact lenses History of steroid therapy Thyroid disease Injury of head and neck Non-smoker History of edema History of echocardiogram Depression with anxiety Goiter Home Medications ?Medication ?Instructions ?Recorded ?Last Taken ?Type venlafaxine 75 mg capsule,extended 75 mg PO DAILY #30 caps 05/30/24 08/03/24 Rx release 24 hr cholecalciferol (vitamin D3) 50 50 mcg PO DAILY 07/31/24 08/03/24 History mcg (2,000 unit) capsule levothyroxine 75 mcg tablet 75 mcg PO DAILY 07/31/24 08/04/24 History Allergy/AdvReac Type Severity Reaction Status Date / Time Penicillins AdvReac Rash Verified 07/31/24 10:26 Sulfa (Sulfonamide AdvReac Rash Verified 07/31/24 10:26 Antibiotics) Family History Grandmother Breast cancer Grandfather Diabetes Surgical History Hx of colonoscopy History of endometrial ablation S/P dilation and curettage S/P gastric surgery Status post breast reduction Social History Smoking Status: Never smoker alcohol intake: current details: occasionally substance use type: does not use caffeine: Yes what type of physical activity do you participate in: walking frequency: 3-4 times per week seatbelt use: always do you feel safe at home: Yes additional social history: Remarried to Rich! 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 [employer] ROS Narrative Constitutional: Denies fevers, chills, headaches Cardiovascular: Denies chest pain or palpitations Respiratory: Denies coughing wheezing shortness of breath Abdomen: Complains of abdominal pain as noted above denies nausea vomiting diarrhea : Denies urinary symptoms Neurological: Denies numbness, weakness, tingling Musculoskeletal: Denies back pain Skin: Denies any rashes or lesions EXAM Physical Exam Narrative Exam Narrative: General: Patient sitting in chair resting comfortably did not appear to be in acute distress Head: Atraumatic, normocephalic Eyes: PERRL bilaterally, EOMI bilateral, no conjunctival injection noted Neck: Soft, supple, trachea midline Cardiovascular: Regular rate and rhythm Respiratory: Clear to auscultation bilaterally Abdomen: Soft, nondistended, mild tenderness to palpation in the right upper quadrant no rebound or guarding on exam Extremities: +5/5 strength noted in the bilateral upper and lower extremities, radial pulses +2/4 in the 5 extremities, no pedal edema exam Neurological: Patient is following commands knew that she was at [facility] the year is 2024 Skin: Warm, dry, tact no rashes or lesions noted Const Vital Signs: 08/13/24 10:41 08/13/24 12:55 08/13/24 14:00 Temperature 97.8 F Temperature Source Temporal Pulse Rate 68 64 Respiratory Rate 16 18 Blood Pressure 140/92 H 139/63 H 136/67 H Blood Pressure Mean 108 88 90 Pulse Ox 99 99 Oxygen Delivery Method Room Air Room Air MDM MDM MDM Narrative Medical decision making narrative: Patient is a 64-year-old female who presented to the emergency department chief complaint of abdominal pain. On the differential diagnosis includes but not limited to cholecystitis, choledocholithiasis, cholelithiasis, pancreatitis. Once workup is obtained and reviewed she will be reevaluated. Patient be given IV fluids for hydration. Patient's CBC was reviewed showed no evidence leukocytosis white blood count was 6, he was 13.5, platelet count of 306. Patient sodium was normal at 140, potassium normal 3.7, creatinine was normal at 0.68. Patient AST and ALT were 18 and 12 respectively, lipase normal 37. Patient's urinalysis reviewed showed no evidence of infection. Patient's ultrasound was reviewed and showed cholelithiasis without acute cholecystitis there was gallbladder sludge and multiple gallstones noted. I had the patient moved from the hallway and put her in a room she would lie down and I pushed on her right upper quadrant and she states that this was painful for her. I reached out to on-call general surgeon Dr. Roberts who states that she should call his office when I discharged her and he will see her in the office tomorrow. I discussed this plan with the patient she is agreeable this plan all question concerns answered she was discharged home in stable condition. Lab Data Labs: Laboratory Results - last 24 hr 08/13/24 12:45 WBC 6.0 RBC 4.88 Hgb 13.5 Hct 43.2 MCV 88.5 MCH 27.7 MCHC 31.3 L RDW Std Deviation 48.9 H RDW Coeff of Annel 15.0 H Plt Count 306 MPV 10.6 Immature Gran % (Auto) 0.300 Neut % (Auto) 59.5 Lymph % (Auto) 31.3 Kingfisher % (Auto) 6.0 Eos % (Auto) 2.2 Baso % (Auto) 0.7 Absolute Neuts (auto) 3.6 Absolute Lymphs (auto) 1.87 Nucleated RBC % 0 Sodium 140 Potassium 3.7 Chloride 104 Carbon Dioxide 24.2 Anion Gap 12 BUN 15 Creatinine 0.68 L Estim Creat Clear Calc 99.04 Est GFR (MDRD) Non-Af 98 BUN/Creatinine Ratio 22.5 H Glucose 185 H Calcium 8.9 Total Bilirubin 0.33 AST 18 ALT 12 Alkaline Phosphatase 113 H Total Protein 7.1 Albumin 4.0 Globulin 3.1 Albumin/Globulin Ratio 1.3 Lipase 37 Urine Color Yellow Urine Clarity Sl. Cloudy Urine pH 6.0 Ur Specific [place] 1.010 Urine Protein Negative Urine Glucose (UA) Normal Urine Ketones Negative Urine Occult Blood Negative Urine Nitrite Negative Urine Bilirubin Negative Urine Urobilinogen Normal Ur Leukocyte Esterase 100 H Urine RBC 0 SEEN Urine WBC 0-5 SEEN Ur Squamous Epith Cells 0-5 SEEN Urine Bacteria 0 SEEN Urine Mucus 0 SEEN Radiography Diagnostic Testing: Clinical Impression(s) from Imaging Studies Abdomen Ultrasound 08/13/24 12:51 IMPRESSION: Cholelithiasis without acute cholecystitis. Nonspecific echogenic pancreas. Reading Location: [facility] Discharge Plan Triage Chief Complaint: Abd Pain ED Provider: Mich Wheatley Dx/Rx/DC Orders Clinical Impression: Abdominal pain, Cholelithiasis Prescriptions: No Action venlafaxine 75 mg capsule,extended release 24hr 75 mg PO DAILY Qty: 30 12RF levothyroxine 75 mcg tablet 75 mcg PO DAILY cholecalciferol (vitamin D3) 50 mcg (2,000 unit) capsule 50 mcg PO DAILY Primary Care Provider: Mirian Payton Referrals: Care Physician,No Primary [Non-Staff] - Jeet Roberts MD [Med Staff - Active Staff] - Activity Restrictions/Additional Instructions: Call Dr. Roberts office when you are discharged here for your appointment tomorrow. Return with worsening symptoms or concerns. Print Language: Gabonese Disposition Disposition: Home, Self Care
[2024-08-13 13:12] LABS: Squamous Epithelial Cells - UA 0-5 SEEN /hpf (5-10); White Blood Cells 0-5 SEEN /hpf (0-5)
[2024-08-13 13:25] LABS: ALB/GLOB Ratio 1.3 RATIO (0.9-2.4); AST(SGOT) 18 U/L (<=31); Alanine Aminotransfer ALT/SGPT 12 U/L (<=34); Alkaline Phosphatase 113 U/L (35-104); Anion Gap 12 (5-15); BUN 15 mg/dL (4-19); BUN/Creat Ratio 22.5 RATIO (10-20); Calcium,Total 8.9 mg/dL (7.6-11.0); Carbon Dioxide 24.2 mmol/L (21.0-32.0); Chloride 104 mmol/L (98-108); Creatinine, Serum 0.68 mg/dL (0.70-1.20); EST Glomerular Filtration Rate 98 (>60); Estimated Creatinine Clearance 99.04 ml/min (50-250); Globulin 3.1 g/dL (2.2-4.2); Glucose 185 mg/dL (70-99); Lipase 37 U/L (13-75); Potassium 3.7 mmol/L (3.3-5.1); Protein, Total 7.1 g/dL (5.9-8.4); Sodium Level 140 mmol/L (133-145); Total Bilirubin 0.33 mg/dL (0.00-1.30)
[2024-08-13 14:00] VITALS: BP 136/67; PULSE 64; RESP 18; O2SAT 99
[2024-08-13 16:25] VITALS: BP 128/62; PULSE 65; RESP 17; TEMP 36.4; O2SAT 99
--- OUTSIDE RECORDS SUMMARY | 2024-08-13 22:16 | XMS RPT_ITS | CCD ---
Author Organization [facility]ini[facility] Care Team Providers Care Cage Shift Manager Name Role Phone Millie Payton MD Primary Care Provider Tata, Dr. Vela Primary Care Provider Tata, Dr. Vela Referring Provider [phone] Rose Marie Brush Attending Provider Millie Payton MD Primary Care Provider Tata MA, Millie Primary Care Provider Tata, Dr. Vela Primary Care Provider Tata, Dr. Vela Referring Provider [phone] Rose Marie Brush Attending Provider Tata MA, Millie Primary Care Provider Kang MA, Chete Unavailable [phone] Millie Payton Primary Care Provider Dr. Millie Payton Referring Provider Dr. Rose Marie Brush Attending Provider [phone] Dr. Jeffery Rose Attending Provider [phone] Dr. Rose Marie Brush Referring Provider MILLIE PAYTON Referring Unavailable MILLIE PAYTON Primary Care Unavailable MILLIE PAYTON MD Admitting Unavailable MILLIE PAYTON MD Primary Care Unavailable MILLIE PAYTON MD Consulting Unavailable MILLIE PAYTON MD Attending Unavailable PROVIDER, UNKNOWN Consulting Unavailable PROVIDER, UNKNOWN Consulting Unavailable PROVIDER, UNKNOWN Consulting Unavailable MILLIE PAYTON MD Primary Care Unavailable MILLIE PAYTON MD Consulting Unavailable LATOUF, BUTRODRIGUE MA Attending Unavailable LATOUF, BUTROS MD Admitting Unavailable [...] SELF Referring Unavailable JAYME ROCHA Attending Unavailable Latouf , Dr. Vela Primary Care Provider Dr. Millie Payton MD Referring Provider Tristan ADJUNCT BUSINESS INSTRUCTOR-C, Tracey Attending Provider Trudi MA, Dr. Trotter Attending Provider [phone] Jessica MA, Dr. Bojorquez Attending Provider Jessica MA, Dr. Bojorquez Other Provider Latouf, Butros Primary Care Unavailable Maryellen Lopez Attending Unavailable RobotMaryellen freeman Consulting Unavailable Latouf, Butros Referring Unavailable Latouf, Butros Primary Care Unavailable Latouf, Butros Referring Unavailable Tracey Hudson Attending Unavailable Latouf, Butros Primary Care Unavailable Latouf, Butros Referring Unavailable Tracey Hudson Attending Unavailable Latouf, Butros Primary Care Unavailable Latouf, Butros Referring Unavailable Tracey Hudson Attending Unavailable Latouf, Butros Referring Unavailable Rose Marie Brush Attending Unavailable Latouf, Butros Primary Care Unavailable Latouf, Butros Primary Care Unavailable Maryellen Lopez Attending Unavailable Latouf, Butros Referring Unavailable Rose Marie Brush Attending Unavailable Latouf, Butros Primary Care Unavailable Rose Marie Brush Referring Unavailable Latouf, Butros Primary Care Unavailable Latouf, Butros Referring Unavailable Rose Marie Brush Attending Unavailable Latouf, Butros Primary Care Unavailable Latouf, Butros Referring Unavailable Rose Marie Brush Attending Unavailable Latouf, Butros Primary Care Unavailable Latouf, Butros Referring Unavailable Marcanthony, Rose Marie Attending Unavailable Latouf, Butros Referring Unavailable Marcanthony, Rose Marie Attending Unavailable Latouf, Butros Primary Care Unavailable Latouf, Butros Referring Unavailable Marcanthony, Rose Marie Attending Unavailable Latouf, Butros Primary Care Unavailable Marcanthony, Orse Marie Attending Unavailable Latouf, Butros Primary Care Unavailable Jcanthony, Rose Marie Referring Unavailable Tata MA, Dr. Vela Primary Care Provider Dr. Millie Payton MD Referring Provider Dr. Mich Wheatley DO Emergency Provider [phone] Allergies Allergy Classification Reported Allergen(s) Allergy Type Date of Onset Reaction(s) Facility (3 sources) Penicillins; Translations: [PENICILLINS] Drug Intolerance 6 Rash [facility] (10 sources) Sulfonamides (Antibiotic); Translations: [SULFA (SULFONAMIDE ANTIBIOTICS)] Drug Allergy 3 Rash, Itching [facility] (7 sources) Penicillins Propensity to adverse reactions 1 Rash [facility] (7 sources) Sulfonamides (Antibiotic) Propensity to adverse reactions 1 [facility] (7 sources) Penicillins Drug Intolerance 6 [facility] (1 source) Penicillin Drug Allergy [facility] (1 source) Sulfonamides (Antibiotic) Drug allergy (disorder) [facility] (1 source) Penicillins Drug allergy (disorder) 5 [facility] (1 source) Sulfonamides (Antibiotic) Drug allergy (disorder) 5 [facility] Medications Current Medications Medication Drug Class(es) Dates Sig (Normalized) Sig (Original) cholecalciferol 0.05 mg oral capsule (2 sources) Vitamin D Start: 07-31-2024 take 1 capsule by mouth once daily Cholecalciferol (Vitamin D3) 50 mcg (2,000 unit) capsule Active 50 ug PO DAILY July 31, 2024 12:00am levothyroxine sodium 0.075 mg oral tablet (20 sources) l-Thyroxine Start: 07-31-2024 take 1 tablet by mouth once daily Levothyroxine 75 mcg tablet Active 75 ug PO DAILY July 31, 2024 12:00am Start: 06-23-2005 End: 07-31-2024 take 1 tablet by mouth once daily Levothyroxine 88 mcg tablet Discontinued 88 ug PO DAILY October 11, 2023 8:44am July 31, 2024 10:27am Completed/Discontinued Medications Medication Drug Class(es) Dates Sig (Normalized) Sig (Original) acetaminophen 325 mg / HYDROcodone bitartrate 5 mg oral tablet (4 sources) Opioid Agonist Start: 11-20-2022 HYDROcodone-acetami nophen (NORCO) 5-325 mg per tablet acetaminophen 325 mg / oxyCODONE hydrochloride 5 mg oral tablet (8 sources) Opioid Agonist Start: 01-29-2014 End: 03-31-2019 Oxycodone-Acetamino phen 1 TABLET tablet Discontinued 2 {tbl} PO EVERY 4 HOURS NEEDED as needed for Moderate-Severe pain January 29, 2014 1:00am March 31, 2019 9:47am Start: 01-29-2014 End: 03-31-2019 take 2 tablets by mouth every four hours as needed Oxycodone-Acetaminophen Discontinued 2 TABLET PO EVERY 4 HOURS NEEDED January 29, 2014 12:00am March 31, 2019 8:47am [id number] 200 actuat albuterol 0.09 mg/actuat metered dose [...] oral capsule (1 source) Non-narcotic Antitussive Start: 11-28-2020 End: 08-09-2021 take 1 capsule by mouth every eight hours as needed Benzonatate 200 mg capsule Take 1 capsule by mouth three times daily as needed. 21 capsule 0 11/28/2020 08/09/2021 Discontinued (Discontinued by another Health Care Provider) Comment on above: Take 1 capsule by mo [facility] three times daily as needed. methylPREDNISolone (4 sources) Corticosteroid Start: 10-12-2022 methylPREDNISolone (MEDROL DOSE-PACK) 4 mg Dose-Pack miSOPROStol 0.2 mg oral tablet (9 sources) Prostaglandin E1 Analog Start: 01-29-2014 End: 03-31-2019 Misoprostol 200 MCG tablet Discontinued January 29, 2014 1:00am March 31, 2019 9:47am Start: 01-28-2014 End: 08-09-2021 Misoprostol Discontinued 2 D 2013 12:00am March 31, 2019 8:47am Comment on above: Take two tabs by franchesca the night before and 4 hours prior to surgery naproxen 250 mg oral tablet (8 sources) Nonsteroidal Anti-inflammatory Drug Start: 014 End: take 250-500 mg by mouth every eight hours as needed for pain Naproxen 250 MG tablet Discontinued 250 - 500 mg PO EVERY 8 HOURS NEEDED as needed for MILD PAIN January 29, 2014 1:00am March 31, 2019 9:47am phentermine hydrochloride 37.5 mg oral capsule (8 sources) Sympathomimetic Amine Anorectic Start: 021 End: take 1 capsule by mouth once daily 30 minutes after breakfast Phentermine (Adipex-P) 37.5 mg capsule Discontinued 37.5 mg PO DAILY July 09, 2020 12:00am August 31, 2020 2:07pm must administer 30 minutes before or 1-2 hours after breakfast 24 hr phentermine 11.25 mg / topiramate 69 mg extended release oral capsule (14 sources) Sympathomimetic Amine Anorectic Start: 024 End: 025 Phentermine-Topiram ate (Qsymia) 15-92 mg capsule, ER multiphase 24 hr Discontinued 1 NMA PO Q24H May 30, 2024 12:32pm July 31, 2024 10:27am Start: 09-14-2023 End: 10-26-2023 Phentermine-Topiramate (Qsym ia) 11.25-69 mg capsule, ER multiphase 24 hr Discontinued 1 NMA PO DAILY October 26, 2023 11:33am October 26, 2023 1:25pm bmi 35 Start: 07-10-2023 End: 10-11-2023 Phentermine-Topiramate (Qsym ia) 7.5-46 mg capsule, ER multiphase 24 hr Discontinued 1 NMA PO DAILY July 10, 2023 12:00am October 11, 2023 8:45am 24 hr venlafaxine 75 mg extended release oral capsule (20 sources) Serotonin and Norepinephrine Reuptake Inhibitor Start: 02-16-2022 End: 05-30-2024 take 1 capsule by mouth once daily Venlafaxine 75 mg capsule,extended release 24hr Discontinued 75 mg PO DAILY May 12, 2024 2:55pm May 30, 2024 12:30pm Start: 09-30-2021 End: 02-16-2022 take 1 capsule by mouth once daily Venlafaxine (Effexor Xr) 37.5 mg capsule,extended release 24hr Discontinued 37.5 mg PO DAILY September 30, 2021 12:00am February 16, 2022 9:06am Start: 03-19-2019 take 1 tablet by franchesca th once daily venlafaxine (EFFEXOR) 75 mg tablet Take 75 mg by mouth once daily. 0 03/19/2019 Active Start: 03-19-2019 take 2 tablets by mo uth once daily venlafaxine (EFFEXOR) 75 mg tablet Take 150 mg by mouth once daily. 0 03/19/2019 Active Start: 01-29-2014 End: 11-24-2021 take 1 capsule by mouth once daily Venlafaxine 75 mg capsule,extended release 24hr Discontinued 75 mg PO DAILY March 31, 2019 12:36pm November 24, 2021 2:10pm Start: 01-29-2014 End: 03-31-2019 Venlafaxine 75 MG capsule,ex tended release 24hr Discontinued January 29, 2014 1:00am March 31, 2019 9:47am Start: 01-29-2014 End: 03-31-2019 take 150 mg by mouth once daily Venlafaxine Discontinued 150 MG PO DAILY March 31, 2019 8:47am March 31, 2019 11:36am Comment on above: Take 150 mg by mouth once daily. Take 75 mg by mouth once daily. Problems Active Problems Problem Classification Problem Date Documented Da te Episodic/Chronic Abdominal pain (1 source) Abdominal pain; Translations: [Unspecified abdominal pain] 08-13-2024 Episodic Anxiety disorders (14 sources) Mixed anxiety and depressive disorder; Translations: [Other specified anxiety disorders] Chronic Comment on above: effexor Biliary tract disease (1 source) Biliary calculus; Translations: [Calculus of gallbladder without cholecystitis without obstruction] 08-13-2024 Episodic Blindness and vision defects (2 sources) Diplopia; Translations: [Diplopia] Episodic Disorders of lipid metabolism (1 source) Mixed hyperlipidemia; Translations: [Mixed hyperlipidemia] 12-26-2022 Chronic Menopausal disorders (8 sources) Abnormal perimenopausal bleeding; Translations: [Excessive bleeding in the premenopausal period] Onset: 11-01-2011 11-01-2011 Chronic Nutritional deficiencies (3 sources) Vitamin D deficiency, unspecified; Translations: [Vitamin D deficiency] Onset: 12-28-2023 Chronic Other and unspecified benign neoplasm (4 sources) History of polyp of colon; Translations: [History of colonic polyps] 08-04-2024 Episodic Other gastrointestinal disorders (8 sources) Incontinence of feces; Translations: [Full incontinence of feces] 09-30-2021 Episodic Comment on above: discussed kegel exer cises, incontrolmedical. Other gastrointestinal disorders (2 sources) Full incontinence of feces; Translations: [Full incontinence of feces] Episodic Other nutritional; endocrine; and metabolic disorders (14 sources) Obesity; Translations: [Obesity, unspecified] 09-30-2021 Chronic Comment on above: Nutrition plan: HF 1200, 40-50 net carb nutritional plan. Using Lose it flako. Has a goal to lose another 25 in the next 6 months. Incorporate more vegetables; lean meats; protein. Medication plan: Qsymia-continue; continue current dosing; tolerating well with no side effects. Discussed once she reaches her goals potentially titrating down. Recently had labs drawn with PCP-Dr. Payton--request records for these to have on file. control- postmenopausal. Behavior intervention: recommend daily journal of food intake with electronic methods; portion control-continue. Sitting down to eat. Consistent sleep schedule. Exercise plan: Increase daily steps and NEAT activity. Encourage to go on walks as able; make steps count. Will focus on exercise planning/calendar/weight bearing exercises at next visit. Hard to get out side due to weather, snow, ice. discussed weight man agement and plan for keto diet. Other nutritional; endocrine; and metabolic disorders (2 sources) Obesity, unspecified; Translations: [Obesity, unspecified] Chronic Other nutritional; endocrine; and metabolic disorders (1 source) Obesity caused by energy imbalance; Translations: [Other obesity due to excess calories] 12-26-2022 Chronic Other nutritional; endocrine; and metabolic disorders (6 sources) Obese class I; Translations: [Class 1 obesity] 10-11-2023 Chronic Comment on above: SW- 230 03/08/23s/p 8 % weight reduction with nutritional and medication intervention recommendations.initial obesity assessment lab panel reviewed. cardiac reviewed echo and ekg Other nutritional; endocrine; and metabolic disorders (2 sources) Body mass index 30+ - obesity; Translations: [Body mass index (BMI) 37.0-37.9, adult] 10-11-2023 Chronic Other screening for suspected conditions (not mental disorders or infectious disease) (20 sources) Patient encounter status; Translations: [Encounter for screening for malignant neoplasm of intestinal tract, unspecified] Onset: 12-11-2023 09-23-2019 Episodic Comment on above: repeat pap and hpv 2 024- ascus hpv pos, biopsies done at [facility] 12/12-mild changes, repeat pap 2024. Residual codes; unclassified (15 sources) Positive measurement finding; Translations: [Positive test for human papillomavirus (HPV)] Episodic Comment on above: 21 and ascus , 23, repeat pap and hpv 2023 Residual codes; unclassified (4 sources) Family history of cancer of colon; Translations: [Family history of malignant neoplasm of digestive organs] 08-04-2024 Episodic Comment on above: Brother Residual codes; unclassified (1 source) Family history of malignant neoplasm of digestive organs; Translations: [Family history of malignant neoplasm of digestive organs] Onset: 08-11-2024 Episodic Thyroid disorders (13 sources) Goiter; Translations: [Nontoxic goiter, unspecified] Onset: 12-28-2023 09-23-2019 Chronic Comment on above: dr payton manages Transient cerebral ischemia (2 sources) Cerebral ischemia; Translations: [Transient cerebral ischemic attack, unspecified] Chronic Unclassified (2 sources) Personal history of colon polyps, unspecified; Translations: [Personal history of colon polyps, unspecified] Onset: 08-11-2024 Past or Other Problems Problem Classification Problem Date Documented Date Episodic/Chronic Genitourinary symptoms and ill-defined conditions (1 source) Frequency of micturition; Translations: [Frequency of micturition] Onset: 08-02-2023 Episodic Residual codes; unclassified (8 sources) History of endometrial ablation; Translations: [Other specified postprocedural states] Onset: 08-07-2011 08-07-2011 Episodic Sexually transmitted infections (not HIV or hepatitis) (8 sources) Human papillomavirus deoxyribonucleic acid test positive, high risk on cervical specimen; Translations: [Cervical high risk human papillomavirus (HPV) DNA test positive] Onset: 08-12-2013 08-12-2013 Episodic Results Test Name Value Interpretation Reference Range Facility Absolute lymphocyte countOrd ered By: Mich Wheatley on 08-13-2024 Lymphocytes Auto (Unsp spec) [#/Vol] 1.87 10*3/uL 0.83-4.51 [facility] Absolute neutrophil countOrd ered By: Mich Wheatley on 08-13-2024 Neutrophils (Bld) [#/Vol] 3.6 10*3/uL 2.0-7.7 [facility] Anion gap in Serum or Plasma Ordered By: Mich Wheatley on 08-13-2024 Anion gap [Moles/Vol] 12 mmol/L 5-15 [facility] Automated lymphocyte count a s percentage of total leukocytesOrdered By: Mich Wheatley on 08-13-2024 Lymphocytes/100 WBC Auto (Unsp spec) 31.3 % 19-41 [facility] BUN/creatinine ratioOrdered By: Mich Wheatley on 08-13-2024 Urea nitrogen/Creatinine [Mass ratio] 22.5 mg/mg High 10-20 [facility] Basophil percentageOrdered B y: Mich Wheatley on 08-13-2024 Basophils/100 WBC (Bld) 0.7 % 0-1 [facility] Bilirubin Test strip Ql (U)O rdered By: Mich Wheatley on 08-13-2024 Bilirubin Ql (U) Negative Negative [facility] Bilirubin, totalOrdered By: Mich Wheatley on 08-13-2024 Bilirubin [Mass/Vol] 0.33 mg/dL 0.00-1.30 [facility] Carbon dioxide, total [Moles /volume] in Central venous bloodOrdered By: Mich Wheatley on 08-13-2024 CO2 [Moles/Vol] 24.2 mmol/L 21.0-32.0 [facility] Chloride assayOrdered By: Syed Wheatley on 08-13-2024 Chloride [Moles/Vol] 104 mmol/L 98-108 [facility] Eosinophil percentageOrdered By: Mich Wheatley on 08-13-2024 Eosinophils/100 WBC (Bld) 2.2 % 0-5 [facility] Erythrocyte distribution wid th ratioOrdered By: Mich Wheatley on 08-13-2024 Erythrocyte distribution width (RBC) [Ratio] 15.0 % High 11.6-14.6 [facility] Erythrocyte distribution wid th standard deviationOrdered By: Mich Wheatley on 08-13-2024 Erythrocyte distribution width (RBC) [Ratio] 48.9 fl High 35.1-43.9 [facility] Glomerular filtration rate ( GFR) estimation/1.73 sq m using serum, plasma, or whole bOrdered By: Mich Wheatley on 08-13-2024 GFR/1.73 sq M.predicted among non-blacks MDRD (S/P/Bld) [Vol rate/Area] 98 mL/min/{1.73_m2} >60 [facility] Comment on above: mL/min/1.73m2 CKD-EP I Creatinine Equation (2020) Hematocrit Auto (Bld) [Volum e fraction]Ordered By: Mich Wheatley on 08-13-2024 Hematocrit (Bld) [Volume fraction] 43.2 % 37-47 [facility] Hemoglobin measurementOrdere d By: Mich Wheatley on 08-13-2024 Hemoglobin (Bld) [Mass/Vol] 13.5 g/dL 12.0-15.0 [facility] Immature granulocytes/100 WB C Auto (Bld)Ordered By: Mich Wheatley on 08-13-2024 Immature granulocytes/100 WBC (Bld) 0.300 % 0.0-0.9 [facility] Comment on above: IG% - Immature Granu locytes (promyelocytes, myelocytes and metamyelocytes) > 1% indicates that a LEFT SHIFT is Present. Ketones Test strip Ql (U)Ord ered By: Mich Wheatley on 08-13-2024 Ketones Ql (U) Negative Negative [facility] Laboratory - Chemistry and C hemistry - challengeOrdered By: Mich Wheatley on 08-13-2024 AST [Catalytic activity/Vol] 18 U/L <32 [facility] Lipase measurementOrdered By : Mich Wheatley on 08-13-2024 Lipase [Catalytic activity/Vol] 37 U/L 13-75 [facility] Comment on above: Please note:LIPASE r evised reference range effective 22. New Lipase methodology. Expected to produce lower values than the previous assay method. NEW Reference Range: 13 - 75 U/L MCV (mean corpuscular volume ) determinationOrdered By: Mich Wheatley on 08-13-2024 MCV (RBC) [Entitic vol] 88.5 fL 81-99 [facility] Mean corpuscular hemoglobin (MCH) determinationOrdered By: Mich Wheatley on 08-13-2024 MCH (RBC) [Entitic mass] 27.7 pg 27.0-32.0 [facility] Mean corpuscular hemoglobin concentration (MCHC) determinationOrdered By: Mich Wheatley on 08-13-2024 MCHC (RBC) [Mass/Vol] 31.3 g/dL Low 32-36 [facility] Mean platelet volume determi nationOrdered By: Mich Wheatley on 08-13-2024 Platelet mean volume (Bld) [Entitic vol] 10.6 fL 6.2-12.0 [facility] Microscopic analysis of urin e for red blood cells (RBC)Ordered By: Mich Wheatley on 08-13-2024 Microscopic analysis of urine for red blood cells (RBC) 0 SEEN /hpf 0-5 [facility] Monocyte percentageOrdered B y: Mich Wheatley on 08-13-2024 Monocytes/100 WBC (Bld) 6.0 % 0-10 [facility] Mucus LM Ql (Urine sed)Order ed By: Mich Wheatley on 08-13-2024 Mucus Ql (Urine sed) 0 SEEN /hpf [facility] Neutrophil percentageOrdered By: Mich Wheatley on 08-13-2024 Neutrophils/100 WBC (Bld) 59.5 % 47-70 [facility] Nitrite Test strip Ql (U)Ord ered By: Mich Wheatley on 08-13-2024 Nitrite Ql (U) Negative Negative [facility] Nucleated red blood cell per centageOrdered By: Mich Wheatley on 08-13-2024 Nucleated RBC/100 WBC (Bld) [Ratio] 0 % 0-5 [facility] Platelet countOrdered By: Syed Wheatley on 08-13-2024 Platelets (Bld) [#/Vol] 306 10*3/uL 150-450 [facility] Potassium measurement (mass/ volume)Ordered By: Mich Wheatley on 08-13-2024 Potassium (Unsp spec) [Mass/Vol] 3.7 mmol/L 3.3-5.1 [facility] Protein Test strip Ql (U)Ord ered By: Mich Wheatley on 08-13-2024 Protein Ql (U) Negative Negative [facility] RBC Auto (Bld) [#/Vol]Ordere d By: Mich Wheatley on 08-13-2024 RBC (Bld) [#/Vol] 4.88 10*6/uL 4.2-5.4 [facility] Serum creatinine measurement (mass/volume)Ordered By: Mich Wheatley on 08-13-2024 Creatinine [Mass/Vol] 0.68 mg/dL Low 0.70-1.20 [facility] Serum globulin measurementOr dered By: Mich Wheatley on 08-13-2024 Globulin (S) [Mass/Vol] 3.1 g/dL 2.2-4.2 [facility] Serum glucose measurement (m ass/volume)Ordered By: Mich Wehatley on 08-13-2024 Glucose [Mass/Vol] 185 mg/dL High 70-99 [facility] Serum or plasma alanine reeder otransferase (ALT) measurementOrdered By: Mich Wheatley on 08-13-2024 ALT [Catalytic activity/Vol] 12 U/L <35 [facility] Serum or plasma albumin alisa urement (mass/volume)Ordered By: Mich Wheatley on 08-13-2024 Albumin [Mass/Vol] 4.0 g/dL 3.4-4.8 [facility] Serum or plasma albumin/glob ulin mass ratioOrdered By: Mich Wheatley on 08-13-2024 Albumin/Globulin [Mass ratio] 1.3 {ratio} 0.9-2.4 [facility] Serum or plasma alkaline janes sphatase measurementOrdered By: Mich Wheatley on 08-13-2024 ALP [Catalytic activity/Vol] 113 U/L High 35-104 [facility] Serum or plasma calcium alisa urement (mass/volume)Ordered By: Mich Wheatley on 08-13-2024 Calcium [Mass/Vol] 8.9 mg/dL 7.6-11.0 [facility] Serum or plasma urea nitroge n measurement (mass/volume)Ordered By: Mich Wheatley on 08-13-2024 Urea nitrogen [Mass/Vol] 15 mg/dL 4-19 [facility] Sodium levelOrdered By: Cassandra Wheatley on 08-13-2024 Sodium [Moles/Vol] 140 mmol/L 133-145 [facility] Squamous epithelial cells de tection in urine sediment by light microscopyOrdered By: Mich Wheatley on 08-13-2024 Epithelial cells.squamous LM Ql (Urine sed) 0-5 SEEN /hpf 5-10 [facility] Total proteinOrdered By: Mena Wheatley on 08-13-2024 Protein [Mass/Vol] 7.1 g/dL 5.9-8.4 [facility] Urine clarityOrdered By: Mena Wheatley on 08-13-2024 Clarity (U) Sl. Cloudy Clear [facility] Urine color determinationOrd ered By: Mich Wheatley on 08-13-2024 Color (U) Yellow Yellow [facility] Urine glucose detectionOrder ed By: Mich Wheatley on 08-13-2024 Glucose Ql (U) Normal mg/dl Normal [facility] Urine leukocyte esterase det ection by dipstickOrdered By: Mich Wheatley on 08-13-2024 Leukocyte esterase Test strip Ql (U) 100 /ul High Negative [facility] Urine pHOrdered By: Mich banks on 08-13-2024 pH (U) 6.0 [pH] 5.0 - 8.0 [facility] Urine sediment bacteria coun t by microscopy (number/high power field)Ordered By: Mich Wheatley on 08-13-2024 Bacteria LM.HPF (Urine sed) [#/Area] 0 /[HPF] None Seen [facility] Urine specific gravity measu rementOrdered By: Mich Wheatley on 08-13-2024 Specific gravity (U) [Rel density] 1.010 1.002-1.030 [facility] Urine urobilinogen measureme ntOrdered By: Mich Wheatley on 08-13-2024 Urobilinogen Ql (U) Normal mg/dl Normal [facility] White blood cell (WBC) count Ordered By: Mich Wheatley on 08-13-2024 WBC (Bld) [#/Vol] 6.0 10*3/uL 4.4-11.0 [facility] White blood cell countOrdere d By: Mich Wheatley on 08-13-2024 White blood cell count 0-5 SEEN /hpf 0-5 [facility] Colonoscopy Reporton [id number] Colonoscopy Report [facility] Medical Records Department [address] [place] [address] Colonoscopy Report MR#: [id number] Acct: [id number] Name: ALFONSO VERDUGO PASCALE Rep #: [id number] : 1960 64 From: Maryellen Lopez MD PCP: Dr. Millie Payton MD Status:[facility] Patient Name: Alfonso Verdugo Procedure Date: 08/04/2024 7:27 AM Date of : 1960 Age: 64 Procedure: Colonoscopy Indications: High risk colon cancer surveillance: Personal history of colonic polyps, Family history of colon cancer in a first-degree relative before age 60 years Providers: Maryellen Lopez MD Referring MD: Millie Payton Medicines: Monitored Anesthesia Care Patient Profile: This is a 64 year old female. Last Colonoscopy: 5 years ago. Complications: No immediate complications. Procedure: Pre-Anesthesia Assessment: - Prior to the procedure, a History and Physical was performed, and patient medications and allergies were reviewed. The patient's tolerance of previous anesthesia was also reviewed. The risks and benefits of the procedure and the sedation options and risks were discussed with the patient. All questions were answered, and informed consent was obtained. Prior Anticoagulants: The patient has taken no anticoagulant or antiplatelet agents. ASA Grade Assessment: Per anesthesia. After reviewing the risks and benefits, the patient was deemed in satisfactory condition to undergo the procedure. After I obtained informed consent, the scope was passed under direct vision. Throughout the procedure, the patient's blood pressure, pulse, and oxygen saturations were monitored continuously. The colonoscope was introduced through the anus and advanced to the cecum, identified by the appendiceal orifice, ileocecal valve and palpation. The colonoscopy was performed without difficulty. The patient tolerated the procedure well. The quality of the bowel preparation was good. Scope In: 7:41:17 AM Scope Withdrawal Time 0 hours 10 minutes 55 seconds Scope Out: 7:57:19 AM Total Procedure Duration Time 0 hours 16 minutes 2 seconds Findings: The perianal and digital rectal examinations were normal. A less than 5 mm polyp was found in the descending colon. The polyp was semi-pedunculated. The polyp was removed with a hot snare. Resection and retrieval were complete. The exam was otherwise without abnormality on direct and retroflexion views. Impression: - One less than 5 mm polyp in the descending colon, removed with a hot snare. Resected and retrieved. - The examination was otherwise normal on direct and retroflexion views. Recommendation: - Discharge patient to home. - Resume previous diet. - Continue present medications. - Await pathology results. - Repeat colonoscopy in 3 years for surveillance based on pathology results. Procedure Code(s): --- Professional --- 14641, PT, Colonoscopy, flexible; with removal of tumor(s), polyp(s), or other lesion(s) by snare technique Diagnosis Code(s): --- Professional --- Z86.010, Personal history of colonic polyps D12.4, Benign neoplasm of descending colon Z80.0, Family history of malignant neoplasm of digestive organs CPT copyright 2021 [employer] [place] [employer] [employer]. All rights reserved. The codes documented in this report are preliminary and upon wharfmaster review may be revised to meet current compliance requirements. MD Maryellen Ramries MD 08/04/2024 8:03:27 AM This report has been signed electronically. Number of Addenda: 0 Note Initiated On: 08/04/2024 7:27 AM 08/04/24802 Date Maryellen Montanez Signature: Date (if indicated) CC: Dr. Millie Payton MD; Dr. Maryellen Lopez MD Date Dictated: 08/04/24726 Date Transcribed: Cutter Operator Tile: TR [facility] MR/POSTOP.Tali 08-04-2024 MR/POSTOP.[facility] Medical Records Department [address] [place], [place] [address] [address] Anesthesia Postop Eval I 08/04/24809 MR#: [id number] Acct: [id number] Name: ALFONSO VERDUGO PASCALE Rep #: [id number] : 1960 64 From: Juancarlos Wheatley PCP: Dr. Millie Payton MD Status:REG SDC Y Race: C Location: [place] [address] Anesthesia: Postop Eval I Current Vital Signs Temperature: 98.5 F Pulse Rate: 62 Blood Pressure: 109/65 Respiratory Rate: 16 Pulse Ox: 99 Oxygen Delivery Method: Room Air Assessment Airway patent: Yes Spontaneous unlabored respirations: Yes Mental status: Awake and Calm nausea: No Vomiting: No Anesthesia Complication: No Fluid Hydration Crystalloid volume administer (ml): 800 Total IV fluid infused: 800 Progress Note Anesthesia document: Postop Eval 1 completed: Yes 08/04/24811 Date Juancarlos Montanez Signature: Date CC: Signed [facility] MR/VRUMDBDR2yk 08-04-2024 MR/POSTOPAN2 [facility] Medical Records Department [address] [place] [address] Anesthesia Postop Eval II 08/04/24 1228 MR#: [id number] Acct: [id number] Name: ALFONSO VERDUGO Rep #: [id number] : 1960 64 From: Kris Oviedo MD PCP: Dr. Millie Payton MD Status[place] [facility] [place] C Location: [place] Anesthesia Postop Eval I Sum Postop Eval Completion status Anesthesia document: Postop Eval 1 completed: Yes Anesthesia Postop Eval I Summary Anesthesia Postop Eval I Summary: Anesthesia Postop Eval I: Assessment Summary Airway patent Yes 08/04/24 08:11 [email or web address] Spontaneous unlabored Yes 08/04/24 08:11 [email or web address] respirations Mental status Awake,Calm 08/04/24 08:11 [email or web address] nausea No 08/04/24 08:11 [email or web address] Vomiting No 08/04/24 08:11 [email or web address] Anesthesia Postop Eval I: Fluid Summary Crystalloid volume administer 800 08/04/24 08:11 [email or web address] (ml) Colloids volume administered ( ml) Blood Product volume administered (ml) Total IV fluid infused 800 08/04/24 08:11 [email or web address] Anesthesia Postop Eval I: Summary Notes Anesthesia Complication No 08/04/24 08:11 [email or web address] Anesthesia Complication Comment: Post-operative progress note Anesthesia: Postop Eval II Evaluation Mental status: Awake and Calm Pain Level: 0 nausea: No Vomiting: No Complications Anesthesia Complication: No 08/04/24 1228 Date Kris Oviedo MD Cosigner Signature: Date CC: Signed Normal [facility] Surgery Specimen Level Latisha 08-04-2024 Surgery Specimen Level IV Patient Age/Sex Location Account Attending Physician ALFONSO VERDUGO 64/F EN [id number] Dr. Maryellen Lopez MD Specimen: [id number] Received: 08/04/24 Status: ANTONIODarion Glez Num: [id number] Spec Type: COLON BX Subm Dr: Dr. Maryellen Lopez MD HEADER OPERATION: Colonoscopy with biopsy PRE-OP DIAGNOSIS: Family history of colon cancer, history of colonic polyps TISSUE SUBMITTED: A- Descending colon polyp biopsy MICROSCOPIC DIAGNOSIS A. Descending colon, polyp, biopsy: Tubular adenoma. MICROSCOPIC DESCRIPTION Slides are reviewed. GROSS DESCRIPTION A. Received in fixative is one container labeled with the patient's name and designated Descending colon polyp biopsy. The specimen consists of one irregular fragment of light dumont soft tissue that measures 0.3 cm admixed with vegetable material. The specimen is totally submitted in one cassette. Anita 08/04/2024 CPT:51550 Patient Age/Sex Location Account Attending Physician ALFONSO VERDUGO 64/F EN [id number] Dr. Maryellen Lopez MD Signed (signature on file) Dr. Minerva Dean MD 08/12/24 0850 Normal [facility] Comment on above: Performed By: #### P SUIV #### [facility] [address] [place], [place], [id number] MR/PAT.HUBERTon 07-31-2024 MR/PAT.HUBERT [facility] Medical Records Department [address] [place] [address] PAT - Anesthesia 07/31/24 1114 MR#: [id number] Acct: [id number] Name: ALFNOSO VERDUGO Rep #: [id number] : 1960 64 From: Juan Georges MD PCP: Dr. 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 farmer Female Yes 07/31/24 10:35 HX of Motion [...] 05/30/24 11:34 Respiratory Assessment Respiratory Assessment - emu farmer: Respiratory Tract Infection Hx - emu farmer Hx Respiratory Tract Infection No 07/31/24 10:35 STOP Sleep Apnea STOP Sleep Apnea - emu farmer: STOP Sleep Apnea - emu farmer Hx Hypertension No 07/31/24 10:35 Hx Sleep [...] Tobacco Use History Tobacco Use History - emu farmer: Tobacco Use History - emu farmer Tobacco Use Smoking Status Never smoker 07/31/24 10:35 Hx Tobacco Use No 07/31/24 10:35 Years Smoking Packs Smoked per Day Smoking Cessation Date was within the last 15 years Hx Smoking Cessation Date Hx Smoking Cessation Counseling Hematologic Medial History Hematologic Hx - emu farmer: Hematologic Medical Hx - cook fruit Hx of Blood Transfusion No 07/31/24 10:35 [...] confused, unrespo /Reproduction History /Reproductive History - emu farmer: /Reproductive Hx- emu farmer Hx Now No 07/31/24 10:35 Gestational Age (in weeks): EDC: Hx Hx Para Hx Section SAB No 07/31/24 10:35 PFSH Medical History (Updated 07/31/24 @ 10:35 by [...] Grandfather Diabetes (more content not included)... Normal [facility] Hearing Screener Office Visit Reporton 05-30-2024 Hearing Screener Office Visit Report [facility] [address], [address] [place] [address] OFFICE VISIT Date of Service: 05/30/24 MR#: [id number] Acct: [id number] Name: ALFONSO VERDUGO Rep #: [id number] : 1960 Provider: Dr. Rose Marie florez MD Age/Sex: 64/F [place] [facility] [place]: Signed Intake Vital Signs 04/08/24 09:36 04/30/24 08:41 05/30/24 11:32 05/30/24 11:34 Height 5 ft 6 in 5 ft 6 in 5 ft 6 in 5 ft 6 in Weight: 209 lb 6 oz 211 lb BMI 33.7 34.0 BP 130/82 H 125/84 H Pulse 77 71 Intake Visit Reasons: 3 M FU Psychodramatist Required: No Is patient in pain?: No Allergies Penicillins Adverse Reaction (Verified 04/30/24 08:34) Rash Sulfa (Sulfonamide Antibiotics) Adverse Reaction (Verified 04/30/24 08:34) Rash Medications ???Medication ???Instructions ???Recorded ???Confirmed ???Type levothyroxine 88 mcg tablet 88 mcg PO DAILY 10/11/23 05/30/24 History phentermine 15 mg-topiramate ER 92 1 cap PO Q24H #30 caps 05/30/24 05/30/24 Rx mg capsule,ext.shzqgql29ez multphas (Qsymia) venlafaxine 75 mg capsule,extended 75 [...] home: Yes additional social history: Remarried to [employer]rolia! 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 History 3 Elective abortions Hx Para 2 Spontaneous abortions 1 Hx # Term Pregnancies Ectopic pregnancies Hx # Pregnancies Multiple births # of living children Past Pregnancies Del. Date Name GA/Weeks Outcome Route Bth Weight Infant Gen Labor Lgth Anesthesia Del Locatn Provider FOB Unknown Vasyl-1989 Unknown Yobany-1993 HPI 3 M FU Details: ALFONSO VERDUGO is a 64 year old Female presenting [...] or consult (more content not included)... Normal [facility] Office Visit Reporton 2024 Office Visit Report [facility] [address] [place] [address] OFFICE VISIT Date of Service: 04/30/24 MR#: [id number] Acct: [id number] Patient: ALFONSO VERDUGO Rep #: [id number] : 1960 Provider: Dr. Rose Marie florez MD Age/Sex: 64/F Location[place] [facility] [place]: Signed Intake Vital Signs 04/08/24 09:36 04/30/24 08:41 Height 5 ft 6 in 5 ft 6 in Weight: 209 lb 6 oz BMI 33.7 BP 130/82 H Pulse 77 Intake Visit Reasons: 1 M med check Chief Complaint: BP/HR/Weight Check Psychodramatist Required: No Is patient in pain?: No Allergies Penicillins Adverse Reaction (Verified 04/30/24 08:34) Rash Sulfa (Sulfonamide Antibiotics) Adverse Reaction (Verified 04/30/24 08:34) Rash Medications ???Medication ???Instructions ???Recorded ???Confirmed ???Type levothyroxine 88 mcg tablet 88 mcg PO DAILY 10/11/23 04/30/24 History phentermine 15 mg-topiramate ER 92 1 cap PO Q24H #30 caps 03/05/24 04/30/24 Rx mg capsule,ext.mcuxmin52nk multphas (Qsymia) venlafaxine 75 mg capsule,extended 75 [...] Marie Montanez Signature: Date (if applicable) CC: Normal [facility] Office Visit Reporton 2024 Office Visit Report [facility] [address] [place] [address] OFFICE VISIT Date of Service: 04/08/24 MR#: [id number] Acct: [id number] Patient: ALFONSO VERDUGO Rep #: [id number] : 1960 Provider: ARSALAN Mclean Age/Sex: 63/F [place] [facility] [place]: Signed Intake Vital Signs 03/05/24 09:25 04/03/24 13:30 04/08/24 09:36 Height 5 ft 6 in 5 ft 6 in 5 ft 6 in Weight: 210 lb 4 oz BMI 33.9 BP 133/84 H Pulse 67 Pulse Source Monitor Intake Visit Reasons: 1 M weigh in med check Chief Complaint: BP/HR/Weight Check Psychodramatist Required: No Is patient in pain?: No [...] Q24H #30 caps 03/05/24 04/08/24 Rx mg capsule,ext.skpvsdn81ba multphas (Qsymia) Post menopausal: No Patient : No Have you fallen in the past year?: No Nurse's Note: Patient is requesting refill sent to [facility] [place]. She is scheduling 2 NVs and then [...] journey today?: NA 04/08/24 1642 Date Tracey Hudson NP-C Cosigner Signature: Date (if applicable) CC: Normal [facility] Hearing Screener Office Visit Reporton 03-05-2024 Hearing Screener Office Visit Report [facility] [address], [address] [place] [address] OFFICE VISIT Date of Service: 03/05/24 MR#: [id number] Acct: [id number] Name: ALFONSO VERDUGO Rep #: [id number] : 1960 Provider: ARSALAN Mclean Age/Sex: 63/F Location[place] [facility] [place]: Signed Intake Vital Signs 01/23/24 10:12 03/05/24 09:19 03/05/24 09:25 Height 5 ft 6 in 5 ft 6 in 5 ft 6 in Weight: 207 lb 6 oz BMI 33.5 BP 115/75 Pulse 78 Intake Visit Reasons: Weight management Psychodramatist Required: No Is patient in pain?: No [...] Q24H #30 caps 03/05/24 03/05/24 Rx mg capsule,ext.niprdzm67ms multphas (Qsymia) Last Menstrual Period: 02/19/11 Have [...] Provider FOB Unknown Vasyl-1989 Unknown Yobany-1993 HPI Weight management Details: ALFONSO VERDUGO is a 63 year old Female presenting [...] comfortable and no acute distress Orientation: alert HENMO Head: normal to inspection and normocephalic Eyes [...] Other obesity: Status: Acute Comment: Nutrition plan: LCHF 1200, 40-50 net carb nutritional plan. Using Lose it flako. Has a goal to lose another 25 in the next 6 months. Incorporate more vegetables; lean meats; protein. Medication plan: Qsymia-continue; continue current dosing; tolerati (more content not included)... Normal [facility] Hearing Screener Office Visit Reporton 01-23-2024 Hearing Screener Office Visit Report [facility], [facility] [address] [place] [address] OFFICE VISIT Date of Service: 01/23/24 MR#: [id number] Acct: [id number] Name: ALFONSO VERDUGO PASCALE Rep #: [id number] : 1960 Provider: ARSALAN Mclean Age/Sex: 63/F Location[place] [facility] [place]: Signed Intake Vital Signs 10/11/23 08:49 12/11/23 13:37 01/23/24 10:08 01/23/24 10:12 Height 5 ft 6 in 5 ft 6 in 5 ft 6 in 5 ft 6 in Weight: 207 lb BMI 33.4 BP 137/84 H Pulse 92 Intake Visit Reasons: 3 M WM Chief Complaint: 3 m f/u Psychodramatist Required: No Is patient in pain?: No [...] Q24H #30 caps 01/23/24 01/23/24 Rx mg capsule,ext.uubemhc08cr multphas (Qsymia) Last Menstrual Period: 02/19/11 PFSH [...] home: Yes additional social history: Remarried to Pyrolia! 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 History 3 Elective abortions Hx Para 2 Spontaneous abortions 1 Hx # Term Pregnancies Ectopic pregnancies Hx # Pregnancies Multiple births # of living children Past Pregnancies Del. Date Name GA/Weeks Outcome Route Bth Weight Infant Gen Labor Lgth Anesthesia Del Locatn Provider FOB Unknown Vasyl-1989 Unknown Yobany-1993 HPI 3 M WM Details: ALFONSO VERDUGO is a 63 year old Female presenting [...] Other obesity: Status: Acute Comment: [facility], 40-50 net carb nutritional plan. Using Lose it flako. Medication plan: Qsymia; continue current dosing; tolerating well with no side effects. Discussed once she reaches her goals potentially titrating down. control- postmenopausal. Behavior intervention: recommend daily journal of food intake with electronic me (more content not included)... Normal [facility] 25([place])D3 [facility] 25-hydroxyvitamin D3 [Mass/Vol] 21.8 ng/mL Low 31.0-80.0 [facility] Comment on above: Order Comment: Saskia ahn Type: BLOOD SPECIMEN Ordering Facility: [facility] Address: [address] [place] [address] [address], [place] [address] Result Comment: Clas sification of 25 [place] Vitamin D status: Deficiency/Insufficiency: < or = 30 ng/ml. Sufficiency/Optimal Levels: 31-80 ng/mL Toxicity: > 100 ng/mL. Test performed by chemiluminescent immunoassay. Performed By: #### 1 989-3 #### [facility] CLIA [id number] [address] [place] [address] [place] CBC W Auto Differential pane l (Bld)on 12-28-2023 Basophils (Bld) [#/Vol] 0.04 10*3/uL Normal <0.11 [facility] Comment on above: Order Comment: Speci men Type: BLOOD SPECIMEN Ordering Facility: [facility] Address: [address] [place] [address] Performed By: #### 5 7021-8 #### [facility] CLIA [id number] [address] [place] [address] [place] Basophils/100 WBC (Bld) 0.8 % Normal [facility] Comment on above: Order Comment: Speci men Type: BLOOD SPECIMEN Ordering Facility: [facility] Address: [address] [place] [address] Performed By: #### 5 7021-8 #### [facility] CLIA [id number] [address] [place] [address] [place] Differential cell count method Nom (Bld) Auto Normal [facility] Comment on above: Order Comment: Speci men Type: BLOOD SPECIMEN Ordering Facility: [facility] Address: [address] [place] [address] Performed By: #### 5 7021-8 #### [facility] CLIA [id number] [address] [place] [address] [place] Eosinophils (Bld) [#/Vol] 0.17 10*3/uL Normal <0.46 [facility] Comment on above: Order Comment: Speci men Type: BLOOD SPECIMEN Ordering Facility: [facility] Address: [address] [place] [address] Performed By: #### 5 7021-8 #### [facility] CLIA [id number] [address] [place] [address] [place] Eosinophils/100 WBC (Bld) 3.5 % Normal [facility] Comment on above: Order Comment: Speci men Type: BLOOD SPECIMEN Ordering Facility: [facility] Address: [address] [place] [address] Performed By: #### 5 7021-8 #### [facility] CLIA [id number] [address] [place] [address] [place] Erythrocyte distribution width (RBC) [Ratio] 15.0 % Normal 11.5-15.0 [facility] Comment on above: Order Comment: Speci men Type: BLOOD SPECIMEN Ordering Facility: [facility] Address: [address] [place] [address] Performed By: #### 5 7021-8 #### [facility] CLIA [id number] [address] [place] [address] [place] Hematocrit (Bld) [Volume fraction] 40.4 % Normal 36.0-46.0 [facility] Comment on above: Order Comment: Speci men Type: BLOOD SPECIMEN Ordering Facility: [facility] Address: [address] [place] [address] Performed By: #### 5 7021-8 #### [facility] CLIA [id number] [address] [place] [address] [place] Hemoglobin (Bld) [Mass/Vol] 12.8 g/dL Normal 11.5-15.5 [facility] Comment on above: Order Comment: Speci men Type: BLOOD SPECIMEN Ordering Facility: [facility] Address: [address] [place] [address] Performed By: #### 5 7021-8 #### [facility] CLIA [id number] [address] [place] [address] [place] Immature granulocytes (Bld) [#/Vol] 10*3/uL Normal <0.10 [facility] Comment on above: Order Comment: Speci men Type: BLOOD SPECIMEN Ordering Facility: [facility] Address: [address] [place] [address] Performed By: #### 5 7021-8 #### [facility] CLIA [id number] [address] [place] [address] [place] Immature granulocytes/100 WBC (Bld) 0.2 % Normal [facility] Comment on above: Order Comment: Speci men Type: BLOOD SPECIMEN Ordering Facility: [facility] Address: [address] [place] [address] Performed By: #### 5 7021-8 #### [facility] CLIA [id number] [address] [place] [address] [place] Lymphocytes (Bld) [#/Vol] 1.82 10*3/uL Normal 1.00-4.00 [facility] Comment on above: Order Comment: Speci men Type: BLOOD SPECIMEN Ordering Facility: [facility] Address: [address] [place] [address] Performed By: #### 5 7021-8 #### [facility] CLIA [id number] [address] [place] [address] [place] Lymphocytes/100 WBC (Bld) 37.4 % Normal [facility] Comment on above: Order Comment: Speci men Type: BLOOD SPECIMEN Ordering Facility: [facility] Address: [address] [place] [address] Performed By: #### 5 7021-8 #### [facility] CLIA [id number] [address] [place] [address] [place] MCH (RBC) [Entitic mass] 27.7 pg Normal 26.0-34.0 [facility] Comment on above: Order Comment: Speci men Type: BLOOD SPECIMEN Ordering Facility: [facility] Address: [address] [place] [address] Performed By: #### 5 7021-8 #### [facility] CLIA [id number] [address] [place] [address] [place] MCHC (RBC) [Mass/Vol] 31.7 g/dL Normal 30.5-36.0 [facility] Comment on above: Order Comment: Speci men Type: BLOOD SPECIMEN Ordering Facility: [facility] Address: [address] [place] [address] Performed By: #### 5 7021-8 #### [facility] CLIA [id number] [address] [place] [address] [place] MCV (RBC) [Entitic vol] 87.4 fL Normal 80.0-100.0 [facility] Comment on above: Order Comment: Speci men Type: BLOOD SPECIMEN Ordering Facility: [facility] Address: [address] [place] [address] Performed By: #### 5 7021-8 #### [facility] CLIA [id number] [address] [place] [address] [place] Monocytes (Bld) [#/Vol] 0.31 10*3/uL Normal <0.87 [facility] Comment on above: Order Comment: Speci men Type: BLOOD SPECIMEN Ordering Facility: [facility] Address: [address] [place] [address] Performed By: #### 5 7021-8 #### [facility] CLIA [id number] [address] [place] [address] [place] Monocytes/100 WBC (Bld) 6.4 % Normal [facility] Comment on above: Order Comment: Speci men Type: BLOOD SPECIMEN Ordering Facility: [facility] Address: [address] [place] [address] Performed By: #### 5 7021-8 #### [facility] CLIA [id number] [address] [place] [address] [place] Neutrophils (Bld) [#/Vol] 2.51 10*3/uL Normal 1.45-7.50 [facility] Comment on above: Order Comment: Speci men Type: BLOOD SPECIMEN Ordering Facility: [facility] Address: [address] [place] [address] Performed By: #### 5 7021-8 #### [facility] CLIA [id number] [address] [place] [address] [place] Neutrophils/100 WBC (Bld) 51.7 % Normal [facility] Comment on above: Order Comment: Speci men Type: BLOOD SPECIMEN Ordering Facility: [facility] Address: [address] [place] [address] Performed By: #### 5 7021-8 #### [facility] CLIA [id number] [address] [place] [address] [place] Nucleated RBC (Bld) [#/Vol] 10*3/uL Normal <0.01 [facility] Comment on above: Order Comment: Speci men Type: BLOOD SPECIMEN Ordering Facility: [facility] Address: [address] [place] [address] Performed By: #### 5 7021-8 #### [facility] CLIA [id number] [address] [place] [address] [place] Nucleated RBC/100 WBC (Bld) [Ratio] 0.0 /100 WBC Normal [facility] Comment on above: Order Comment: Speci men Type: BLOOD SPECIMEN Ordering Facility: [facility] Address: [address] [place] [address] Performed By: #### 5 7021-8 #### [facility] CLIA [id number] [address] [place] [address] [place] Platelet mean volume (Bld) [Entitic vol] 10.4 fL Normal 9.0-12.7 [facility] Comment on above: Order Comment: Speci men Type: BLOOD SPECIMEN Ordering Facility: [facility] Address: [address] [place] [address] Performed By: #### 5 7021-8 #### [facility] CLIA [id number] [address] [place] [address] [place] Platelets (Bld) [#/Vol] 310 10*3/uL Normal 150-400 [facility] Comment on above: Order Comment: Speci men Type: BLOOD SPECIMEN Ordering Facility: [facility] Address: [address] [place] [address] Performed By: #### 5 7021-8 #### [facility] CLIA [id number] [address] [place] [address] [place] RBC (Bld) [#/Vol] 4.62 10*6/uL Normal 3.90-5.20 [facility] Comment on above: Order Comment: Speci men Type: BLOOD SPECIMEN Ordering Facility: [facility] Address: [address] [place] [address] Performed By: #### 5 7021-8 #### [facility] CLIA [id number] [address] [place] [address] [place] WBC (Bld) [#/Vol] 4.86 10*3/uL Normal 3.70-11.00 [facility] Comment on above: Order Comment: Speci men Type: BLOOD SPECIMEN Ordering Facility: [facility] Address: [address] [place] [address] Performed By: #### 5 7021-8 #### [facility] CLIA [id number] [address] [place] [address] [place] Comprehensive metabolic 2000 panelon 12-28-2023 Albumin [Mass/Vol] 4.2 g/dL Normal 3.9-4.9 [facility] Comment on above: Order Comment: Speci men Type: BLOOD SPECIMEN Ordering Facility: [facility] Address: [address] [place] [address] Performed By: #### 2 4323-8 #### [facility] CLIA [id number] [address] [place] [address] [place] ALP [Catalytic activity/Vol] 123 U/L Normal 34-123 [facility] Comment on above: Order Comment: Speci men Type: BLOOD SPECIMEN Ordering Facility: [facility] Address: [address] [place] [address] Performed By: #### 2 4323-8 #### [facility] CLIA [id number] [address] [place] [address] [place] ALT [Catalytic activity/Vol] 10 U/L Normal 7-38 [facility] Comment on above: Order Comment: Speci men Type: BLOOD SPECIMEN Ordering Facility: [facility] Address: [address] [place] [address] Performed By: #### 2 4323-8 #### [facility] CLIA [id number] [address] [place] [address] [place] Anion gap [Moles/Vol] 12 mmol/L Normal 8-15 [facility] Comment on above: Order Comment: Speci men Type: BLOOD SPECIMEN Ordering Facility: [facility] Address: [address] [place] [address] Performed By: #### 2 4323-8 #### [facility] CLIA [id number] [address] [place] [address] [place] AST [Catalytic activity/Vol] 11 U/L Low 13-35 [facility] Comment on above: Order Comment: Speci men Type: BLOOD SPECIMEN Ordering Facility: [facility] Address: [address] [place] [address] Performed By: #### 2 4323-8 #### [facility] CLIA [id number] [address] [place] [address] [place] Bilirubin [Mass/Vol] 0.5 mg/dL Normal 0.2-1.3 [facility] Comment on above: Order Comment: Speci men Type: BLOOD SPECIMEN Ordering Facility: [facility] Address: [address] [place] [address] Performed By: #### 2 4323-8 #### [facility] CLIA [id number] [address] [place] [address] [place] Calcium [Mass/Vol] 9.2 mg/dL Normal 8.5-10.2 [facility] Comment on above: Order Comment: Speci men Type: BLOOD SPECIMEN Ordering Facility: [facility] Address: [address] [place] [address] Performed By: #### 2 4323-8 #### [facility] CLIA [id number] [address] [place] [address] [place] Chloride [Moles/Vol] 106 mmol/L Normal 98-107 [facility] Comment on above: Order Comment: Speci men Type: BLOOD SPECIMEN Ordering Facility: [facility] Address: [address] [place] [address] Performed By: #### 2 4323-8 #### [facility] CLIA [id number] [address] [place] [address] [place] CO2 [Moles/Vol] 23 mmol/L Normal 22-30 [facility] Comment on above: Order Comment: Speci men Type: BLOOD SPECIMEN Ordering Facility: [facility] Address: [address] [place] [address] Performed By: #### 2 4323-8 #### [facility] CLIA [id number] [address] [place] [address] [place] Creatinine [Mass/Vol] 0.70 mg/dL Normal 0.58-0.96 [facility] Comment on above: Order Comment: Speci men Type: BLOOD SPECIMEN Ordering Facility: [facility] Address: [address] [place] [address] Performed By: #### 2 4323-8 #### [facility] CLIA [id number] [address] [place] [address] [place] Creatinine and Glomerular filtration rate.predicted panel (S/P/Bld) 99 mL/min/1.73m??? Normal >=60 [facility] Comment on above: Order Comment: Speci men Type: BLOOD SPECIMEN Ordering Facility: [facility] Address: [address] [place] [address] Result Comment: Lakia mated Glomerular Filtration Rate [...] GFR. Performed By: #### 2 4323-8 #### [facility] CLIA [id number] [address] [place] [address] [place] Glucose [Mass/Vol] 97 mg/dL Normal 74-99 [facility] Comment on above: Order Comment: Saskia ahn Type: BLOOD SPECIMEN Ordering Facility: [facility] Address: [address] [place] [address] Result Comment: The [place] Diabetes Association (ADA) provides guidance for cutoff [...] Standards of Medical Care in Diabetes 2016, [place] Diabetes Association. Diabetes Care. 2016.39(Suppl 1). Performed By: #### 2 4323-8 #### [id number] [address] [place] [address] [place] Potassium [Moles/Vol] 3.9 mmol/L Normal 3.7-5.1 [facility] Comment on above: Order Comment: [facility] Type: BLOOD SPECIMEN Ordering Facility: [facility] Address: [address] [place] [address] Performed By: #### 2 4323-8 #### [facility] CLIA [id number] [address] [place] [address] [place] Protein [Mass/Vol] 7.0 g/dL Normal 6.3-8.0 [facility] Comment on above: Order Comment: Speci men Type: BLOOD SPECIMEN Ordering Facility: [facility] Address: [address] [place] [address] Performed By: #### 2 4323-8 #### [facility] CLIA [id number] [address] [place] [address] [place] Sodium [Moles/Vol] 141 mmol/L Normal 136-144 [facility] Comment on above: Order Comment: Speci men Type: BLOOD SPECIMEN Ordering Facility: [facility] Address: [address] [place] [address] Performed By: #### 2 4323-8 #### [facility] CLIA [id number] [address] [place] [address] [place] Urea nitrogen [Mass/Vol] 16 mg/dL Normal 7-21 [facility] Comment on above: Order Comment: Speci men Type: BLOOD SPECIMEN Ordering Facility: [facility] Address: [address] [place] [address] Performed By: #### 2 4323-8 #### [facility] CLIA [id number] [address] [place] [address] [place] Lipid 1996 panelon 4 Cholesterol [Mass/Vol] 206 mg/dL High <200 [facility] Comment on above: Order Comment: Speci men Type: BLOOD SPECIMEN Ordering Facility: [facility] Address: [address] [place] [address] Result Comment: <200 mg/dL, Desirable 200-239 mg/dL, Borderline high >239 mg/dL, High Performed By: #### 2 4331-1 #### [facility] CLIA [id number] [address] [place] [facility] CLIA [id number] [address] [place] [address] [place] #### 3016-3 #### [facility] CLIA [id number] [address] [place] [id number] [place] Cholesterol in HDL [Mass/Vol] 57 mg/dL Normal >39 [facility] Comment on above: Order Comment: Speci men Type: BLOOD SPECIMEN Ordering Facility: [facility] Address: [address] [place] [address] Result Comment: 40-5 9 mg/dL, Acceptable >59 mg/dL, High: Negative risk factor for coronary heart disease <40 mg/dL, Low: Positive risk factor for coronary heart disease Performed By: #### 2 4331-1 #### [facility] CLIA [id number] [address] [place] [address] [place] [facility] CLIA [id number] [address] [place] [address] [place] #### 3016-3 #### [facility] CLIA [id number] [address] [place] [address] [place] Cholesterol in LDL [Mass/Vol] 135 mg/dL High <100 [facility] Comment on above: Order Comment: Angelitoi men Type: BLOOD SPECIMEN Ordering Facility: [facility] Address: [address] [place] [address] Result Comment: <100 mg/dL, Optimal 100-129 mg/dL, Near optimal/above optimal 130-159 mg/dL, Borderline high 160-189 mg/dL, High >189 mg/dL, Very high Secondary prevention optimal LDL Cholesterol levels are recommended to be < 70 mg/dL Performed By: #### 2 4331-1 #### [facility] CLIA [id number] [address] [place] [address] [place] [facility] CLIA [id number] [address] [place] [address] [place] #### 3016-3 #### [facility] CLIA [id number] [address] [facility] [place] [address] [place] Cholesterol in LDL/Cholesterol in HDL [Mass ratio] 2.37 {ratio} Normal <2.54 [facility] Comment on above: Order Comment: Speci men Type: BLOOD SPECIMEN Ordering Facility: [facility] Address: [address] [place] [address] Result Comment: Refe rence: 1. National Cholesterol Education Program ATP III Guideline At-A-Glance Quick Desk Reference: National Heart, Lung, and Blood [place]. National Institutes of Health. 2001: NIH Publication No. 01-3305. 2. An International Atherosclerosis Society position paper: global recommendations for the management of dyslipidemia: executive summary, Atherosclerosis. 2014: 232(2):410-413. Performed By: #### 2 4331-1 #### [facility] CLIA [id number] [address] [place] [address] [place] [facility] CLIA [id number] [address] [place] [address] [place] #### 3016-3 #### [facility] CLIA [id number] [address] [facility] [address] [place] [id number] [place] Cholesterol in VLDL [Mass/Vol] 14 mg/dL Normal <30 [facility] Comment on above: Order Comment: Speci men Type: BLOOD SPECIMEN Ordering Facility: [facility] Address: [address] [place] [address] Performed By: #### 2 4331-1 #### [facility] CLIA [id number] [address] [place] [id number] [place] [facility] CLIA [id number] [address] [place] [address] [place] #### 3016-3 #### [facility] CLIA [id number] [address] [place] [address] [place] Cholesterol non HDL [Mass/Vol] 149 mg/dL High <130 [facility] Comment on above: Order Comment: Speci men Type: BLOOD SPECIMEN Ordering Facility: [facility] Address: [address] [place] [address] Result Comment: <130 mg/dL, Optimal 130-159 mg/dL, Near optimal/above optimal 160-189 mg/dL, Borderline high 190-219 mg/dL, High >219 mg/dL, Very high Secondary prevention optimal non HDL Cholesterol levels are recommended to be <100 mg/dL Performed By: #### 2 4331-1 #### [facility] CLIA [id number] [address] [place] [address] [place] [facility] CLIA [id number] [address] [place] [address] [place] #### 3016-3 #### [facility] CLIA [id number] [address] [place] [address] [place] Cholesterol.total/Elina sterol in HDL [Mass ratio] 3.61 {ratio} Normal <5.10 [facility] Comment on above: Order Comment: Speci men Type: BLOOD SPECIMEN Ordering Facility: [facility] Address: [address] [place] [address] Performed By: #### 2 4331-1 #### [facility] CLIA [id number] [address] [place] [address] [place] [facility] CLIA [id number] [address] [place] [address] [place] #### 3016-3 #### [facility] CLIA [id number] [address] [place] [address] [place] FASTING TIME 12 hrs Normal [facility] Comment on above: Order Comment: Speci men Type: BLOOD SPECIMEN Ordering Facility: [facility] Address: [address] [place] [address] Performed By: #### 2 4331-1 #### [facility] CLIA [id number] [address] [place] [address] [place] [facility] CLIA [id number] [address] [place] [address] [place] #### 3016-3 #### [facility] CLIA [id number] [address] [place] [address] [place] Triglyceride [Mass/Vol] 70 mg/dL Normal <150 [facility] Comment on above: Order Comment: Speci men Type: BLOOD SPECIMEN Ordering Facility: [facility] Address: [address] [place] [address] Result Comment: <150 mg/dL, Normal 150-199 mg/dL, Borderline high 200-499 mg/dL, High >499 mg/dL, Very high Performed By: #### 2 4331-1 #### [facility] CLIA [id number] [address] [place] [address] [place] [facility] CLIA [id number] [address] [place] [address] [place] #### 3016-3 #### [facility] CLIA [id number] [address] [place] [address] [place] TSH SerPl-aCncon 12-28-2023 TSH Qn 2.900 m[IU]/L Normal 0.270-4.200 [facility] Comment on above: Order Comment: Speci men Type: BLOOD SPECIMEN Ordering Facility: [facility] Address: [address] [place] [address] Performed By: #### 2 4331-1 #### [facility] CLIA [id number] [address] [place] [id number] [place] [facility] CLIA [id number] [address] [place] [address] [place] #### 3016-3 #### [facility] CLIA [id number] [address] [place] [id number] [place] Hearing Screener Office Visit Reporton 12-11-2023 Hearing Screener Office Visit Report [facility] [address], [address] [place] [address] OFFICE VISIT Date of Service: 12/11/23 MR#: [id number] Acct: [id number] Name: ALFONSO VERDUGO Rep #: [id number] : 1960 Provider: Dr. Rose Marie florez MD Age/Sex: 63/F Location[place] [facility] [place]: Signed Intake Vital Signs 10/11/23 08:49 12/11/23 13:37 Height 5 ft 6 in 5 ft 6 in BP 127/82 H Intake Visit Reasons: Colposcopy Chief Complaint: colposcopy Psychodramatist Required: No Is patient in pain?: No Feel stressed/tense/nervous/ anxious/difficulty sleeping: not at all Allergies Penicillins Adverse [...] Q24H #30 caps 10/26/23 12/11/23 Rx mg capsule,ext.lthexdj06co multphas (Qsymia) Is last menstrual period known: [...] Weight Infant Gen Labor Lgth Anesthesia [facility] Provider FOB Unknown Vasyl-1989 Unknown Yobany-1993 HPI Colposcopy Details: ALFONSO VERDUGO is a 63 year old who presents [...] appearing, comfortable and well developed Orientation: alert HENMO Head: normal to inspection Resp Effort Inspection: [...] complications. Coding Level of Care Code Attention Sarahy Diagnoses Abnormal Pap smear of cervix R87.619 CPT Codes Colposcopy - Cervix+upper/adj vag+bx cervix: Yes (91785) Assessment and Plan Assessment and Plan (1) Abnormal Pap smear of cervix: Status: Acute Comment: repeat pap and hpv 2023- ascus hpv pos, biopsies done at [facility] 12/12. Orders: Orders Colposcopy Today R87.619 - Unspecified abnormal cytological findings in specimens from cervix uteri 12/11/23 1415 Date Rose Marie Ugarte (more content not included)... Normal [facility] SCRN MAMM (CAD)W/PRISCILA BILATo n 12-11-2023 SCRN MAMM (CAD)W/PRISCILA BILAT [facility] Services [address] [place], [place] [address] SCRN MAMM (CAD)W/PRISCILA BILAT MR#: [id number] Acct: [id number] Name: ALFONSO VERDUGO Rep #: [id number] : 1960 F 63 From: Thaddeus chaudhry MD PCP: Dr. Millie Payton MD Status: REG CLI Study: SCRN MAMM (CAD)W/PRISCILA BILAT Date of Exam: 11/20 04/14 Exam# [id number] Ordering Dr: Rose Marie Brush [id number] MAMMOGRAPHY - BILATERAL SCREENING REASON FOR EXAM: [...] delay biopsy of a clinically suspicious abnormality. [id number] Electronically Signed: Thaddeus May MD at 14:12 EDT , CC: Dr. Millie Payton MD; Dr. Rose Marie Brush MD Cutter Operator Tile: Signed Normal [facility] Surgery Specimen Level Latisha 12-11-2023 Surgery Specimen Level IV Patient Age/Sex Location Account Attending Physician ALFONSO VERDUGO 63/F [facility] [id number] Dr. Rose Marie Brush MD Specimen: [id number] Received: 12/12/23 Status: CASS Glez Num: [id number] Spec Type: CERV Subm Dr: Dr. Rose Marie Brush MD HEADER OPERATION: Colposcopy PRE-OP DIAGNOSIS: Abnormal pap smear of cervix/ HPV test positive TISSUE SUBMITTED: A- 6o'clock, B- 8o'clock MICROSCOPIC DIAGNOSIS A. Cervix, 6o'clock, biopsy: Rare glandular mucosa present. B. Cervix, 8o'clock, biopsy: Minimal chronic inflammation. HPV change present See comment. AM.mr 12/13/2023 COMMENT B. Immunohistochemistry ([id number]) for surrogate HPV marker (p16) shows weak, [...] specimen is totally submitted in one cassette. 12/12/2023 TC:3 [facility]:[id number] Patient Age/Sex Location Account Attending Physician ALFONSO VERDUGO 63/F [facility] [id number] Dr. Rose Marie Brush MD Signed (signature on file) Dr. Aly Lundberg DO 12/14/23 1418 Normal [facility] Comment on above: Performed By: #### P CRESENCIO ####[facility] [address] [place], [address] p16 (initial)on 12-11-2023 p16 (initial) --- Patient Age/Sex Location Account Attending Physician ALFONSO VERDUGO 63/F OP [id number] Dr. Rose Marie Brush MD Specimen: [id number] Received: 12/14/23 Status: CASS Glez Num: [id number] Spec Type: IMMUNO Subm Dr: Dr. Rose Marie Brush MD [facility] [place] [address] SPECIMEN INFORMATION: Tissue Source: B- 8o'clock Clinical Info: Abnormal pap smear of cervix, HPV positive test Specimen Number: [id number] CPT code: 23616,50569 METHODOLOGY: Deparaffinized sections of prefer/formalin-fixed tissue or PAP/DQ stained slides are incubated with monoclonal/polyclonal antibodies/oligonucleot olivia probes. Localization is made via biotin free immunoperoxidase method. Appropriate controls are performed and reacted as expected. Results on target cell population are indicated in the following table: RESULTS: ANTIBODY / CLONE RESULT Block B P16 (E6H4) positive, focal, patchy, light stain Ki-67 (30-9) positive, low These tests were developed and their performance characteristics determined by [facility]. They may not have been cleared or approved by the U.S. Food and Drug Administration. The FDA has determined that such clearance or approval is not necessary. The above immunohistochemical/zulma Disha markers are ordered and reviewed by the Pathologist. INTERPRETATION: B. Cervix, 8o'clock, biopsy: HPV change present. Case has been reviewed in consultation with Dr. Wilson who concurs with the above diagnosis. IDC:YVONNE Roberson 12/14/2023 Signed (signature on file) Dr. Aly Lundberg DO 12/14/23 1458 Normal [facility] Comment on above: Performed By: #### P P16 #### [facility] [address] [place], [place], [id number] PAP IG HPV APTIMA 16/18,45on 10-17-2023 ADEQ Comment Normal . [facility] Comment on above: Order Comment: Speci men Comment: [id number] Comment: Source.............Cervix;EndocervixSpecimen Comment: Other..............Post MenopausalSpecimen Comment: No. of containers..01 ThinPrep Vial Result Comment: Sati sfactory for evaluation. Endocervical and/or squamous metaplastic cells (endocervical component) are present. Performed By: #### L 7400.0280 ####[facility] [address] [place], [place], [id number] COMM . Normal . [facility] Comment on above: Order Comment: Speci men Comment: [id number] Comment: Source.............Cervix;EndocervixSpecimen Comment: Other..............Post MenopausalSpecimen Comment: No. of containers..01 ThinPrep Vial Performed By: #### L 7400.0280 ####[facility] [address] [place], [place], [id number] COMMENT Comment Normal . [facility] Comment on above: Order Comment: Speci men Comment: [id number] Comment: Source.............Cervix;EndocervixSpecimen Comment: Other..............Post MenopausalSpecimen Comment: No. of containers..01 ThinPrep Vial Result Comment: This liquid based ThinPrep(R) pap test was screened with the use of an image guided system. Performed By: #### L 7400.0280 ####[facility] [address] [place], [place], [id number] DIAG Comment Abnormal . [facility] Comment on above: Order Comment: Speci men Comment: [id number] Comment: Source.............Cervix;EndocervixSpecimen Comment: Other..............Post MenopausalSpecimen Comment: No. of containers..01 ThinPrep Vial Result Comment: EPIT HELIAL CELL ABNORMALITY. ATYPICAL SQUAMOUS CELLS OF UNDETERMINED SIGNIFICANCE (ASC-US). CELLULAR CHANGES ASSOCIATED WITH ATROPHY ARE PRESENT. Performed By: #### L 7400.0280 ####[facility] [address] [facility] [place], [place], [id number] HPV APTIMA, HR Positive Abnormal Negative [facility] Comment on above: Order Comment: Speci men Comment: [id number] Comment: Source.............Cervix;EndocervixSpecimen Comment: Other..............Post MenopausalSpecimen Comment: No. of containers..01 ThinPrep Vial Result Comment: This nucleic acid amplification test detects fourteen high- risk HPV types (16,18,31,33,35,39,45,51,52,56,58,59,66,68) without differentiation. Performed By: #### L 7400.0280 ####[facility] [address] [facility] [address] [place], [place], [id number] HPV Roxann Rfx Comment Normal . [facility] Comment on above: Order Comment: Speci men Comment: [id number] Comment: Source.............Cervix;EndocervixSpecimen Comment: Other..............Post MenopausalSpecimen Comment: No. of containers..01 ThinPrep Vial Result Comment: Crit eria not met, HPV Genotype not performed. Performed at: [address], [place] [id number] Instructional Systems Specialist: Deanne Trevino MD, Phone: [phone] Performed at: = - [facility] [id number] Instructional Systems Specialist: Deanne Trevino MD, Phone: [phone] Performed By: #### L 7400.0280 ####[facility] [address] [place], [address] PAPSMR Comment Normal . [facility] Comment on above: Order Comment: Speci men Comment: [id number] Comment: Source.............Cervix;EndocervixSpecimen Comment: Other..............Post MenopausalSpecimen Comment: No. of containers..01 ThinPrep Vial Result Comment: The Pap smear is a screening test designed to aid in the detection of premalignant and malignant conditions of the uterine cervix. It is not a diagnostic procedure and should not be used as the sole means of detecting cervical cancer. Both false-positive and false-negative reports do occur. Performed By: #### L 7400.0280 ####[facility] [address] [place], [place], [id number] Path.prov.IDC-9 Comment Normal . [facility] Comment on above: Order Comment: Speci men Comment: [id number] Comment: Source.............Cervix;EndocervixSpecimen Comment: Other..............Post MenopausalSpecimen Comment: No. of containers..01 ThinPrep Vial Result Comment: R87. 610 Performed By: #### L 7400.0280 ####[facility] [address] [place], [place], [id number] PERFORM Comment Normal . [facility] Comment on above: Order Comment: Speci men Comment: [id number] Comment: Source.............Cervix;EndocervixSpecimen Comment: Other..............Post MenopausalSpecimen Comment: No. of containers..01 ThinPrep Vial Result Comment: Licha Wade, Feller Machine Operator (ASCP) Performed By: #### L 7400.0280 ####[facility] [address] [place], [address] SIGN Comment Normal . [facility] Comment on above: Order Comment: Speci men Comment: [id number] Comment: Source.............Cervix;EndocervixSpecimen Comment: Other..............Post MenopausalSpecimen Comment: No. of containers..01 ThinPrep Vial Result Comment: Lorena Figueroa MD, Pathologist Performed By: #### L 7400.0280 ####[facility] [address] [place], [address] Hearing Screener Office Visit Reporton 10-11-2023 Hearing Screener Office Visit Report [facility] [address], [address] [place] [address] OFFICE VISIT Date of Service: 10/11/23 MR#: [id number] Acct: [id number] Name: ALFONSO VERDUGO PASCALE Rep #: [id number] : 1960 Provider: Dr. 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) Psychodramatist Required: No Is patient in pain?: No Allergies Penicillins Adverse Reaction (Verified 10/11/23 08:44) Rash Sulfa (Sulfonamide Antibiotics) Adverse Reaction (Verified 10/11/23 08:44) Rash Medications ???Medication ???Instructions ???Recorded ???Confirmed ???Type venlafaxine 75 mg capsule,extended 75 mg PO DAILY #90 caps 03/06/23 10/11/23 Rx release 24 hr phentermine 11.25 mg-topiramate ER 1 cap PO DAILY 30 days #30 caps 09/14/23 10/11/23 Rx 69 mg capsule,ext.nqcfcii07uc mphas (Qsymia) levothyroxine 88 mcg tablet 88 mcg PO DAILY 10/11/23 10/11/23 History Is last menstrual period known: No Post menopausal: Yes Patient : No : No Control Method: menopause PFSH Medical History Depression with anxiety Goiter [...] home: Yes additional social history: Remarried to [place]! 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 History 3 Elective abortions Hx Para 2 Spontaneous abortions 1 Hx # Term Pregnancies Ectopic pregnancies Hx # Pregnancies Multiple births # of living children Past Pregnancies Del. Date Name GA/Weeks Outcome Route Bth Weight Infant Gen Labor Lgth Anesthesia Del Locatn Provider FOB Unknown Vasyl-1989 Unknown Yobany-1993 HPI Encounter for routine gynecological examination Details: ALFONSO VERDUGO is a 63 year old who presents for annual exam.increasing physical activity, walking and biking, doing well. Last PAP: 2022 History of abnormal PAP: yes Last mammogram: 2022 History of abnormal mammogram: Colon cancer screenin due Other preventative health care screenings: [facility] PCP does screening labs Female Reproductive History [...] acute distress, well developed and well groomed HENMO Head: normal to inspection and normocephalic Ears: [...] to inspectio (more content not included)... Normal [facility] Office Visit Reporton 2023 Office Visit Report [facility] [address] [place] [address] OFFICE VISIT Date of Service: 09/12/23 MR#: [id number] Acct: [id number] Patient: ALFONSO VERDUGO Rep #: [id number] : 1960 Provider: Dr. Rose Marie florez MD Age/Sex: 63/F Location[place] [facility] [place]: Signed Intake Vital Signs 03/08/23 16:00 09/12/23 11:28 Height 5 ft 6 in 5 ft 6 in Weight: 230 lb 217 lb 8 oz BMI 37.1 35.1 BP 132/82 H 134/84 H Pulse 80 Intake Visit Reasons: WT [facility] Psychodramatist Required: No Is patient in pain?: No [...] #30 caps 09/14/23 09/14/23 Rx 69 mg capsule,ext.jheaoto61vc mphas (Qsymia) Is last menstrual period known: [...] Mehta Signature: Date (if applicable) CC: Normal [facility] URINE CULTURE [CCL]on 2023 Bacteria identified Cx Nom (U) URCUL See Results Below See Below CULTURE, URINE NORMAL UROGENITAL [place] <10,000 CFU/ml Normal urogenital oneida SOURCE: Urine (Nonspecific) [place] [address] Dale Benoit III, M.D. [id number] SEND TO IC NO Normal [facility] Comment on above: Performed By: #### 2 12354 #### [facility],[address] [place], [place] [id number] Bacteria Ur Culton 4 Bacteria identified Cx Nom (U) ORGANISM ID: 1 <10,000 CFU/ml Normal urogenital [place] Normal [facility] Comment on above: Performed By: #### 6 30-4 #### [facility] CLIA [id number] [address] [place], [place] [address] [place] [address] [place] URINALYSIS WITH MICROSCOPYon 08-02-2023 Amorphous NONE Normal [facility] Comment on above: Performed By: #### 2 70923 #### [facility],[address] [place] [address],[facility] [address] Bacteria NONE Normal [facility] Comment on above: Performed By: #### 2 63789 #### [facility],[address] [place] [address] Bilirubin Ql (U) Negative Normal NORMAL: NEGATIVE [facility] Comment on above: Performed By: #### 2 14718 #### [facility],[address] [place] [address] Calcium Ox 2+ Normal NORMAL: NONE [facility] Comment on above: Performed By: #### 2 56393 #### [facility],[address] [place] [address] Casts NONE Normal [facility] Comment on above: Performed By: #### 2 30564 #### [facility],[address] [place] [address] Clarity (U) CLEAR Normal NORMAL: CLEAR [facility] Comment on above: Performed By: #### 2 74887 #### [facility],[address] [place] [address] Color (U) rosa Normal NORMAL: YELLOW [facility] Comment on above: Performed By: #### 2 93223 #### [facility],[address] [place] [address] Crystals LM Nom (Urine sed) SEE BELO Normal [facility] Comment on above: Performed By: #### 2 78993 #### [facility],[address] [place] [address] Epi Cells NONE Normal [facility] Comment on above: Performed By: #### 2 28567 #### [facility],[address] [place] [address] Glucose Ql (U) NORM Normal NORMAL: NORMAL [facility] Comment on above: Performed By: #### 2 83093 #### [facility],[address] [place] [address] Hemoglobin Ql (U) 10 Abnormal NORMAL: NEGATIVE [facility] Comment on above: Performed By: #### 2 26716 #### [facility],[address] [place] [address] Ketone 15 Abnormal NORMAL: NEGATIVE [facility] Comment on above: Performed By: #### 2 80775 #### [facility],[address] [place] [address] Leukocytes 25 Abnormal NORMAL: NEGATIVE [facility] Comment on above: Result Comment: URIN E MICROSCOPIC Performed By: #### 2 85463 #### [facility],[address] [place] [address] Mucous NONE Normal [facility] Comment on above: Performed By: #### 2 12079 #### [facility],[address] [place] [address] Nitrite Ql (U) Negative Normal NORMAL: NEGATIVE [facility] Comment on above: Performed By: #### 2 31702 #### [facility],[address] [place] [address] pH (U) 5 [pH] Normal NORMAL: 5.0-8.0 [facility] Comment on above: Performed By: #### 2 97637 #### [facility],[address] [place] [address] Protein Ql (U) 15 Abnormal NORMAL: NEGATIVE [facility] Comment on above: Performed By: #### 2 91623 #### [facility],[address] [place] [address] Rbc 0-5 Normal 0-3 / hpf [facility] Comment on above: Performed By: #### 2 58356 #### [facility],[address] [place] [address] Sp Colbert 1.030 Normal NORMAL: 1.010-1.030 [facility] Comment on above: Performed By: #### 2 59719 #### [facility],[address] [place] [address] Specimen Type R Normal [facility] Comment on above: Performed By: #### 2 95629 #### [facility],[address] [place] [address] URINALYSIS WITH MICROSCOPY Normal [facility] Comment on above: Result Comment: URIN ALYSIS Performed By: #### 2 52034 #### [facility],[address] [place] [address] Urobilinog 1 Abnormal NORMAL: NORMAL [facility] Comment on above: Performed By: #### 2 07766 #### [facility],[address] [place] [address] Wbc 1-5 Normal 0-5 / hpf [facility] Comment on above: Performed By: #### 2 84123 #### [facility],[address] [place] [address] Yeast NONE Normal [facility] Comment on above: Performed By: #### 2 60500 #### [facility],[address] [place] [address] Laboratory - Chemistry and C hemistry - challengeOrdered By: Rose Marie Brush on 03-01-2023 Free T4 [Mass/Vol] 1.21 ng/dL 0.76-1.46 [facility] No Panel InformationOrdered By: Rose Marie Brush on 03-01-2023 Thyroid Stimulating Hormone (TSH) 2.34 uIU/mL 0.358-3.74 [facility] CNPNon 01-01-2023 CNPN Telephone (CARCIN) ALFONSO VERDUGO ([id number]) 1960 F Date Time Provider Department 01/01/23 SHAHANA-VINH AGUILAR During your visit today, we recorded the following information about you: Bo Shipley 01/01/2023 9:38 AM Signed ECHO order faxed to [facility] at [phone]. Bo Shipley Allergies As of Date: 01/01/2023 Noted Allergy Reaction PENICILLINS 06/22/2005 2 - Rash SULFA (SULFONAMIDE ANTIBIOTICS) 11/01/2012 2 - Rash 9 - Itching Date Reviewed: 12/26/2022 Reviewed by: Marlene Conrad, RN - Fully Assessed Reason for Visit: Orders [681] Prescriptions as of 01/01/2023 - HYDROcodone-acetaminoph en (NORCO) 5-325 mg per tablet - methylPREDNISolone (MEDROL DOSE-PACK) 4 mg Dose-Pack - venlafaxine (EFFEXOR) 75 mg tablet Take 75 mg by mouth once daily. 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 Chloride [Moles/Vol] 107 mmol/L 98-107 [facility] Eosinophils/100 WBC (Bld) 1.9 % 0-5 [facility] Glucose [Mass/Vol] 94 mg/dL 74-106 [facility] Neutrophils (Bld) [#/Vol] 2.8 10*3/uL 2.0-7.7 [facility] Neutrophils/100 WBC (Bld) 53.7 % 47-70 [facility] Potassium [Moles/Vol] 3.9 mmol/L 3.5-5.1 [facility] Protein [Mass/Vol] 7.9 g/dL 6.4-8.2 [facility] Sodium [Moles/Vol] 138 mmol/L 136-145 [facility] WBC (Bld) [#/Vol] 5.2 10*3/uL 4.4-11.0 [facility] Blood erythrocytes count (nu mber/volume)Ordered By: Rose Marie Brush on 12-19-2022 RBC (Bld) [#/Vol] 5.04 10*6/uL 4.2-5.4 [facility] Blood hemoglobin measurement (mass/volume)Ordered By: Rose Marie Brush on 12-19-2022 Hemoglobin (Bld) [Mass/Vol] 13.8 g/dL 12.0-15.0 [facility] Blood lymphocytes/100 leukoc ytesOrdered By: Rose Marie Brush on 12-19-2022 Lymphocytes/100 WBC (Bld) 36.9 % 19-41 [facility] Blood monocytes/100 leukocyt esOrdered By: Rose Marie Brush on 12-19-2022 Monocytes/100 WBC (Bld) 6.5 % 0-10 [facility] Blood platelet mean volumeOr dered By: Rose Marie Brush on 12-19-2022 Platelet mean volume (Bld) [Entitic vol] 10.4 fL 6.2-12.0 [facility] Determination of erythrocyte mean corpuscular volume (MCV)Ordered By: Rose Marie Brush on 12-19-2022 MCV (RBC) [Entitic vol] 87.1 fL 81-99 [facility] Hematocrit Auto (Bld) [Volum e fraction]Ordered By: Rose Marie Brush on 12-19-2022 Hematocrit (Bld) [Volume fraction] 43.9 % 37-47 [facility] Laboratory - Chemistry and C hemistry - challengeOrdered By: Rose Marie Brush on 12-19-2022 ALP [Catalytic activity/Vol] 111 U/L 45-117 [facility] ALT [Catalytic activity/Vol] 23 U/L 13-56 [facility] CO2 [Moles/Vol] 28.0 mmol/L 21.0-32.0 [facility] Globulin (S) [Mass/Vol] 4.3 g/dL 2.2-4.2 [facility] Urea nitrogen/Creatinine [Mass ratio] 17.6 mg/mg 10-20 [facility] Laboratory - Chemistry and C hemistry - challengeOrdered By: Fabi Alfonso on 12-19-2022 Free T4 [Mass/Vol] 1.55 ng/dL 0.76-1.46 [facility] Laboratory - Hematology and Cell countsOrdered By: Rose Marie Brush on 12-19-2022 Erythrocyte distribution width (RBC) [Entitic vol] 48.2 fL 35.1-43.9 [facility] Erythrocyte distribution width (RBC) [Ratio] 15.0 % 11.6-14.6 [facility] Immature granulocytes/100 WBC (Bld) 0.200 % 0.0-0.9 [facility] Comment on above: IG% - Immature Granu locytes (promyelocytes, myelocytes and metamyelocytes) > 1% indicates that a LEFT SHIFT is Present. MCH (RBC) [Entitic mass] 27.4 pg 27.0-32.0 [facility] Nucleated RBC/100 WBC (Bld) [Ratio] 0 % 0-5 [facility] MCHC Auto (RBC) [Mass/Vol]Or dered By: Rose Marie Brush on 12-19-2022 MCHC (RBC) [Mass/Vol] 31.4 g/dL 32-36 [facility] No Panel InformationOrdered By: Rose Marie Brush on 12-19-2022 Estimated GFR (MDRD) Amer 103 mL/min >60 [facility] Comment on above: GFR Calc Estimated GFR (MDRD) Non-Af Amer 85 mL/min >60 [facility] Comment on above: Non- GFR Calc Thyroid Stimulating Hormone (TSH) 1.45 uIU/mL 0.358-3.74 [facility] Vitamin D 25-Hydroxy 31.4 ng/mL [facility] Comment on above: Vitamin D 25(OH) Sta tus Range Deficiency <20 ng/mL (50nmol/L) Insufficiency 20 - 30 ng/mL (50 - 75 nmol/L) Sufficiency 30 - 100 ng/mL (75 - 250 nmol/L) Toxicity >100 ng/mL (>250 nmol/L) Platelets bldOrdered By: Justin Brush on 12-19-2022 Platelets (Bld) [#/Vol] 318 10*3/uL 150-450 [facility] Serum or plasma albumin alisa urement (mass/volume)Ordered By: Rose Marie Brush on 12-19-2022 Albumin [Mass/Vol] 3.6 g/dL 3.2-5.0 [facility] Serum or plasma albumin/glob ulin mass ratioOrdered By: Rose Marie Brush on 12-19-2022 Albumin/Globulin [Mass ratio] 0.8 {ratio} 0.9-2.4 [facility] Serum or plasma calcium alisa urement (mass/volume)Ordered By: Rose Marie Brush on 12-19-2022 Calcium [Mass/Vol] 8.7 mg/dL 8.5-10.1 [facility] Serum or plasma creatinine m easurement (mass/volume)Ordered By: Rose Marie Brush on 12-19-2022 Creatinine [Mass/Vol] 0.74 mg/dL 0.55-1.02 [facility] Comment on above: The validity of the calculated GFR & GFRAA in patients over 70 years has not been determined. Clinical correlation is essential. Serum or plasma urea nitroge n measurement (mass/volume)Ordered By: Rose Marie rBush on 12-19-2022 Urea nitrogen [Mass/Vol] 13 mg/dL 7-18 [facility] Thin prep Papanicolaou smear with manual screeningOrdered By: Rose Marie Brush on 12-19-2022 Thin prep Papanicolaou smear with manual screening 11 U/L 15-37 [facility] Thin prep Papanicolaou smear with manual screening 3 5-15 [facility] Whole blood hemoglobin A1c/t otal hemoglobin ratio (mass fraction)Ordered By: Rose Marie Brush on 12-19-2022 HbA1c (Bld) [Mass fraction] 5.6 % 3.8-5.6 [facility] Comment on above: Normal < 5.7 % Predi abetic 5.7 - 6.4 % Diabetic >or= 6.5 % Please note range changes. Cervical or vagninal specime n microscopic examination by cytology stain (reported asOrdered By: Rose Marie Brush on 10-05-2022 Cytology report Cyto stain Doc (Cvx/Vag) Comment . [facility] Comment on above: The Pap smear is [...] By: Rose Marie Brush on 10-05-2022 HPV 16+18+31+33+35+39+45+51 +52+56+58+59+66+68 DNA Probe+sig amp Ql (Cvx) Positive Negative [facility] Comment on above: This nucleic acid am plification test detects fourteen high-risk HPV types (16,18,31,33,35,39,45,51,52,56,58,59,66,68)without differentiation. Laboratory - CytologyOrdered By: Rose Marie Brush on 10-05-2022 Metal Room Dental Technician Cyto stain Nom (Cvx/Vag) [ID] Comment . [facility] Comment on above: Leanna Pate, Cytot echnologist (ASCP) Pathologist Cyto stain Nom (Cvx/Vag) [ID] Comment . [facility] Comment on above: Mandy Figueroa MD, P athologist Laboratory - Miscellaneous t estsOrdered By: Rose Marie Brush on 10-05-2022 Service comment (Unsp spec) [Interp] Comment . [facility] Comment on above: This liquid based Th inPrep(R) pap test was screened withthe use of an image guided system. Service comment (Unsp spec) [Interp] . . [facility] Liquid-based cerv Pap + CT/G C by ABNER w reflex to high-risk HPV for ASCUSOrdered By: Rose Marie Brush on 10-05-2022 Cytology report Cyto stain.thin prep Doc (Cvx/Vag) Comment . [facility] Comment on above: Criteria not met, HP V Genotype not performed.Performed at: WB - [facility] [id number] Director: Deanne Trevino MD, Phone: [phone] at: =G - [facility] [id number] Director: Deanne Trevino MD, Phone: [phone] No Panel InformationOrdered By: Rose Marie Brush on 10-05-2022 Pathology report final diagnosis Narrative Comment . [facility] Comment on above: EPITHELIAL CELL ABNO RMALITY.ATYPICAL SQUAMOUS CELLS OF UNDETERMINED SIGNIFICANCE (ASC-US).CELLULAR CHANGES ASSOCIATED WITH ATROPHY ARE PRESENT. R87.610 MRI BRAIN WO IVCONon 023 [facility] Cervical or vagninal specime n microscopic examination by cytology stain (reported ason 09-30-2021 Cytology report Cyto stain Doc (Cvx/Vag) Comment . [facility] Work Phone: Comment on above: The Pap [...] (HPV) 16, 18, 31, 33,on 09-30-2021 HPV 16+18+31+33+35+39+45+51 +52+56+58+59+66+68 DNA Probe+sig amp Ql (Cvx) Positive Negative [facility] Work Phone: Comment on above: This nucleic acid am plification test detects fourteen high-risk HPV types (16,18,31,33,35,39,45,51,52,56,58,59,66,68)without differentiation.Performed at: - [facility] [address] [place], [place] [id number] Director: Deanne Trevino MD, Phone: [phone] at: = - [facility] [address] [place], [place] [id number] Director: Deanne Trevino MD, Phone: [phone] Laboratory - Cytologyon 09-19 Metal Room Dental Technician Cyto stain Nom (Cvx/Vag) [ID] Comment . [facility] Work Phone: Comment on above: Julio Rubio , Feller Machine Operator (ASCP) Pathologist Cyto stain Nom (Cvx/Vag) [ID] Comment . [facility] Work Phone: Comment on above: Angela Corea MD, Pa thologist Recommended follow-up Cyto stain Nom (Cvx/Vag) Comment . [facility] Work Phone: Comment on above: Suggest follow up as clinically appropriate. Laboratory - Miscellaneous t estson 09-30-2021 Service comment (Unsp spec) [Interp] Comment . [facility] Work Phone: Comment on above: This liquid based Th inPrep(R) pap test was screened withthe use of an image guided system. Service comment (Unsp spec) [Interp] . . [facility] Work Phone: No Panel Informationon 09-30 Pathology report final diagnosis Narrative Comment . [facility] Work Phone: Comment on above: EPITHELIAL CELL ABNO RMALITY.ATYPICAL SQUAMOUS CELLS OF UNDETERMINED SIGNIFICANCE (ASC-US). R87.610 25-Hydroxy D2+D3on 25-Hydroxy D Total 25.7 ng/mL Low 30.0-100.0 [facility] Comment on above: Performed By: #### D 2D3 #### [facility] [address] [place] [address] 25-Hydroxy D2 <4.0 Normal [facility] Comment on above: Performed By: #### D 2D3 #### [facility] [address] [place], [place] [id number] 25-Hydroxy D3 25.7 ng/mL Normal [facility] Comment on above: Performed By: #### D 2D3 #### [facility] [address] [place], [place] [id number] Vital Signs Date Time Vital Sign Value Performing Clinician Megan groves 08-13-2024 16:25-0400 Body temperature 97.5 [degF] Dr. Millie Payton MD Work Phone: [facility] 08-13-2024 16:25-0400 Diastolic blood pressure 62 mm[Hg] Dr. Millie Payton MD Work Phone: [facility] 08-13-2024 16:25-0400 Heart rate 65 /min Dr. Millie Payton MD Work Phone: [facility] 08-13-2024 16:25-0400 Respiratory rate 17 /min Dr. Millie Payton MD Work Phone: [facility] 08-13-2024 16:25-0400 SaO2% (BldA) [Mass fraction] 99 % Dr. Millie Payton MD Work Phone: [facility] 08-13-2024 16:25-0400 Systolic blood pressure 128 mm[Hg] Dr. Millie Payton MD Work Phone: [facility] 08-13-2024 10:41-0400 Body height 167.[address] Millie Payton MD Work Phone: [facility] 08-13-2024 10:41-0400 Body mass index (BMI) [Ratio] 33.4 kg/m2 Dr. Millie Payton MD Work Phone: [facility] 08-13-2024 10:41-0400 Body weight 93.[address] Millie Payton MD Work Phone: [facility] 08-04-2024 08:20-0400 Body temperature 97.2 [degF] Dr. Millie Payton MD Work Phone: [facility] 08-04-2024 08:20-0400 Diastolic blood pressure 77 mm[Hg] Dr. Millie Payton MD Work Phone: [facility] 08-04-2024 08:20-0400 Heart rate 55 /min Dr. Millie Payton MD Work Phone: [facility] 08-04-2024 08:20-0400 Respiratory rate 16 /min Dr. Millie Payton MD Work Phone: [facility] 08-04-2024 08:20-0400 SaO2% (BldA) [Mass fraction] 100 % Dr. Millie Payton MD Work Phone: [facility] 08-04-2024 08:20-0400 Systolic blood pressure 113 mm[Hg] Dr. Millie Payton MD Work Phone: [facility] 08-04-2024 06:48-0400 Body height 167.[address] Millie Payton MD Work Phone: [facility] 08-04-2024 06:48-0400 Body mass index (BMI) [Ratio] 33.4 kg/m2 Dr. Millie Payton MD Work Phone: [facility] 08-04-2024 06:48-0400 Body weight [address] Millie Payton MD Work Phone: [facility] 05-30-2024 11:34-0400 Body mass index (BMI) [Ratio] 34 kg/m2 Dr. Millie Payton MD Work Phone: [facility] 05-30-2024 11:34-0400 Body weight 95.[address] Millie Payton MD Work Phone: [facility] 05-30-2024 11:34-0400 Diastolic blood pressure 84 mm[Hg] Dr. Millie Payton MD Work Phone: [facility] 05-30-2024 11:34-0400 Heart rate 71 /min Dr. Millie Payton MD Work Phone: [facility] 05-30-2024 11:34-0400 Systolic blood pressure 125 mm[Hg] Dr. Millie Payton MD Work Phone: [facility] 04-30-2024 08:41-0400 Body mass index (BMI) [Ratio] 33.7 kg/m2 Dr. Millie Payton MD Work Phone: [phone] [place] [address] 04-30-2024 08:41-0400 Body weight 94.[address] Millie Payton MD Work Phone: [phone] [place] [address] 04-30-2024 08:41-0400 Diastolic blood pressure 82 mm[Hg] Dr. Millie Payton MD Work Phone: [facility] 04-30-2024 08:41-0400 Heart rate 77 /min Dr. Millie Payton MD Work Phone: [facility] 04-30-2024 08:41-0400 Systolic blood pressure 130 mm[Hg] Dr. Millie Payton MD Work Phone: [facility] 04-03-2024 13:30-0500 Body mass index (BMI) [Ratio] 33.9 kg/m2 Dr. Millie Payton MD Work Phone: [facility] 04-03-2024 13:30-0500 Body weight 95.[address] Millie Payton MD Work Phone: [facility] 04-03-2024 13:30-0500 Diastolic blood pressure 84 mm[Hg] Dr. Millie Payton MD Work Phone: [facility] 04-03-2024 13:30-0500 Heart rate 67 /min Dr. Millie Payton MD Work Phone: [facility] 04-03-2024 13:30-0500 Systolic blood pressure 133 mm[Hg] Dr. Millie Payton MD Work Phone: [facility] 12-26-2022 09:14-0500 Diastolic blood pressure 94 mm[Hg] Vinh Kapadia MD Work Phone: [facility] 12-26-2022 09:14-0500 Systolic blood pressure 155 mm[Hg] Vinh Kapadia MD Work Phone: [facility] 12-26-2022 09:06-0500 Body height 167.6 cm Vinh Kapadia MD Work Phone: [facility] 12-26-2022 09:06-0500 Body weight 99.79 kg Vinh Kapadia MD Work Phone: [facility] 12-26-2022 09:06-0500 Heart rate 71 /min Vinh Kapadia MD Work Phone: [facility] 12-26-2022 09:06-0500 SaO2% (BldA) [Mass fraction] 98 % Vinh Kapadia MD Work Phone: [facility] 11-23-2022 14:28-0400 Body height 167.[address] Millie Payton Work Phone: [facility] 11-23-2022 14:27-0400 Body mass index (BMI) [Ratio] 36.9 kg/m2 Dr. Millie Payton Work Phone: [facility] 11-23-2022 14:27-0400 Body weight 103.[address] Millie Payton Work Phone: [facility] 11-23-2022 14:27-0400 Diastolic blood pressure 90 mm[Hg] Dr. Millie Payton Work Phone: [facility] 11-23-2022 14:27-0400 Systolic blood pressure 142 mm[Hg] Dr. Millie Payton Work Phone: [facility] 10-05-2022 16:10-0400 Body height 167.[address] Millie Payton Work Phone: [facility] 10-05-2022 16:10-0400 Body mass index (BMI) [Ratio] 36.3 kg/m2 Dr. Millie Payton Work Phone: [facility] 10-05-2022 16:10-0400 Body weight 102.[address] Millie Payton Work Phone: [facility] 10-05-2022 16:10-0400 Diastolic blood pressure 84 mm[Hg] Dr. Millie Payton Work Phone: [facility] 10-05-2022 16:10-0400 Systolic blood pressure 138 mm[Hg] Dr. Millie Payton Work Phone: [facility] 09-30-2021 11:17-0400 Body height 167.[address] Millie Payton Work Phone: [facility] Work Phone: 09-30-2021 11:16-0400 Body mass index (BMI) [Ratio] 36.3 kg/m2 Dr. Millie Payton Work Phone: [facility] Work Phone: 09-30-2021 11:16-0400 Body weight 102.[address] Millie Payton Work Phone: [facility] Work Phone: 09-30-2021 11:16-0400 Diastolic blood pressure 74 mm[Hg] Dr. Millie Payton Work Phone: [facility] Work Phone: 09-30-2021 11:16-0400 Systolic blood pressure 102 mm[Hg] Dr. Millie Payton Work Phone: [facility] Work Phone: 08-09-2021 10:14-0400 Body height 167.6 cm Romero Pelletier MD Work Phone: [facility] 08-09-2021 10:14-0400 Body temperature 97.3 [degF] Romero Pelletier MD Work Phone: [facility] 08-09-2021 10:14-0400 Body weight 94.35 kg Romero Pelletier MD Work Phone: [facility] 08-09-2021 10:14-0400 Diastolic blood pressure 73 mm[Hg] Romero Pelletier MD Work Phone: [facility] 08-09-2021 10:14-0400 Heart rate 64 /min Romero Pelletier MD Work Phone: [facility] 08-09-2021 10:14-0400 Respiratory rate 15 /min Romero Pelletier MD Work Phone: [facility] 08-09-2021 10:14-0400 SaO2% (BldA) [Mass fraction] 99 % Romero Pelletier MD Work Phone: [facility] 08-09-2021 10:14-0400 Systolic blood pressure 144 mm[Hg] Romero Pelletier MD Work Phone: [facility] Encounters Encounter Date Encounter Type Care Provider Facility Start: 08-13-2024 End: 08-13-2024 Emergency department patient visit Dr. Millie Payton MD Work Phone: -Emergency Department Work Phone: Start: 08-04-2024 Non-patient / Non-visit Dr. Dc Lopez MD -[facility] Start: 08-04-2024 End: 08-04-2024 Admission to same day surgery center Dr. Maryellen Lopez MD -Endoscopy Work Phone: Start: 08-04-2024 End: 08-04-[address] Millie Payton MD Work Phone: [facility] Work Phone: Start: 07-15-2024 ambulatory SELF SELF Facility:[facility] Start: 05-30-2024 End: 05-30-[address] Rose Marie Brush MD -[facility] Work Phone: Start: 05-30-2024 End: 05-30-2024 ambulatory Butros Latouf Facility:[facility] Start: 04-30-2024 End: 04-30-[address] Rose Marie Brush MD -[facility] Work Phone: Start: 04-30-2024 End: 04-30-2024 ambulatory Butros Latouf Facility:[facility] Start: 04-08-2024 End: 04-08-2024 Patient encounter procedure Tracey ARRIAZA -[facility] Work Phone: Start: 04-08-2024 End: 04-08-2024 ambulatory Butros Latouf Facility:[facility] Start: 04-01-2024 ambulatory Butros Latouf Facility: [facility] Start: 03-05-2024 End: 03-05-2024 ambulatory Butros Latouf Facility:[facility] Start: 01-23-2024 End: 01-23-2024 ambulatory Butros Latouf Facility:[facility] Start: 01-21-[address] [facility] Start: 12-31-[address] [facility] Start: 12-31-2023 Encounter for genera l adult medical examination without abnormal findings MILLIE PAYTON [facility] Start: 12-28-2023 End: 12-28-2023 ambulatory BUTROS LATOUF Facility:[facility] Start: 12-28-2023 Encounter for genera l adult medical examination without abnormal findings MILLIE PAYTON [facility] Start: 12-11-2023 End: 12-11-2023 ambulatory Butros Latouf Facility:[facility] Start: 12-11-2023 End: 12-11-2023 ambulatory Rose Marie Brush Facility:[facility] Start: 10-11-2023 End: 10-11-2023 ambulatory Millie Payton Facility:[facility] Start: 10-11-2023 End: 10-11-2023 ambulatory Rose Marie Brush Facility:[facility] Start: 09-12-2023 End: 09-12-2023 ambulatory Millie Payton Facility:[facility] Start: 08-02-2023 End: 08-02-2023 ambulatory MILLIE PAYTON [facility] Start: 03-01-2023 End: 03-01-[address] Millie Payton Work Phone: [facility] Work Phone: Start: 03-01-2023 End: 03-01-[address] Millie Payton Work Phone: [facility]Laboratory[facility] Start: 02-07-2023 Non-patient / Non-visit Dr. Baltazar Payton Work Phone: [facility] Start: 02-07-2023 End: 02-07-[address] Millie Payton Work Phone: [facility] Work Phone: Start: 02-07-2023 End: 02-07-[address] Millie Payton Work Phone: [facility]-Cardiovascular Services Work Phone: Start: 01-01-2023 Telephone encounter [...] / Non-visit Dr. Millie Payton Work Phone: [facility] Work Phone: Start: 12-19-2022 End: 12-19-[address] Millie Payton Work Phone: [facility] Work Phone: Start: 12-19-2022 End: 12-19-[address] Millie aPyton Work Phone: [facility]-Pulmonary Services/Neurology Work Phone: Start: 11-23-2022 End: 11-23-[address] Millie Payton Work Phone: [facility] Work Phone: Start: 11-23-2022 End: 11-23-[address] Millie Payton Work Phone: [facility]-Outpatient Breast Imaging Work Phone: Start: 10-05-2022 End: 10-05-[address] Millie Payton Work Phone: [facility] Work Phone: Start: 10-05-2022 End: 10-05-[address] Millie Payton Work Phone: [facility]-Laboratory, Specimen Work Phone: Start: 10-05-2022 End: 10-05-[address] Millie Payton Work Phone: [facility] Work Phone: Start: 02-28-2022 Telephone encounter Romero Pelletier MD Work Phone: [facility] Comment on above: Results (MRI) Start: 02-21-2022 End: 02-21-2022 Subsequent hospital visit by physician Mri Radio [facility] (I-Stat/1.5t) Work Phone: Radiology Comment on above: Transient diplopia [ H53.2] Start: 11-07-2021 Telephone encounter Romero Pelletier MD Work Phone: [facility] Comment on above: Insurance Authorizat ion (/ Imaging Order ) Start: 10-07-2021 End: 10-07-[address] Millie Payton Work Phone: [facility] Work Phone: Start: 10-07-2021 End: 10-07-[address] Millie Payton Work Phone: [facility] Start: 09-30-2021 End: 09-30-[address] Millie Payton Work Phone: [facility] Start: 08-09-2021 End: 08-09-2021 Patient encounter procedure Romero Pelletier MD Work Phone: [facility] Comment on above: Transient diplopia ( Primary Dx); Transient cerebral ischemia, unspecified type Procedures Date Procedure Procedure Detail Performing Clinician Start: 08-13-[address] Millie Payton MD Work Phone: Start: 08-13-[address] Millie Payton MD Work Phone: Start: 08-13-2024 Urnls dip stick/tabl et reagent auto microscopy Dr. Millie Payton MD Work Phone: Start: 08-04-[address] Millie Payton MD Work Phone: Start: 11-23-2022 Screening mammography Jax Payton Work Phone: Start: 02-21-2022 Mri brain brain stem w/o contrast material Romero Pelletier MD Work Phone: Start: 10-07-[address] Millie Payton Work Phone: Start: 09-30-2021 Screening mammography Jax Payton Work Phone: Start: 08-05-2021 Adult depression scr eening assessment Romero Pelletier MD Work Phone: Start: 05-05-2016 Mammography Romero Pelletier MD Work Phone: H/O: surgery S/P gastric surgery Dr. Blaze Payton MD Work Phone: Comment on above: sleeve 2013. lost 55 lbs weight regain 3 years after. discussed referral for bariatric revision if desired, consider gaviota en y or consult for endoscopic sleeve revision possibly. H/O: surgery S/P gastric surgery Dr. Lex Brush MD H/O: surgery S/P gastric surgery Dr. Lex Brush MD Plan of Treatment Date Care Activity Detail Author Start: 08-13-2024 [facility] Start: 08-04-2024 Colsc flx w/rmvl of tumor polyp lesion snare tq COLONOSCOPY W/LESION REMOVAL [facility] Start: 08-04-2024 Patient discharge [facility] Start: 10-20-2022 Covid-19 Vaccine ( season) Covid-19 Vaccine ( season) [facility] Start: 10-20-2022 Influenza vaccination [facility] Start: 10-05-2022 Liquid based cervica l cytology screening [facility] Start: 08-05-2022 Adult depression scr eening assessment DEPRESSION SCREENING [facility] Start: 2022 RSV Vaccine (1 - 1-d ose 60+ series) RSV Vaccine (1 - 1-dose 60+ series) [facility] Start: 02-19-2022 DEPRESSION ASSESSMENT DEPRESSION ASS ESSMENT [facility] Start: 10-20-2021 Influenza vaccination C [facility] Start: 09-30-2021 Liquid based cervica l cytology screening [facility] Work Phone: Start: 09-23-2020 COVID-19 VACCINE (3 - Booster for Moderna series) COVID-19 VACCINE (3 - Booster for Moderna series) [facility] Start: 06-18-2020 COVID-19 VACCINE (3 - Booster for Moderna series) COVID-19 VACCINE (3 - Booster for Moderna series) [facility] Start: 04-23-2020 COVID-19 VACCINE (2 - Moderna series) COVID-19 VACCINE (2 - Moderna series) [facility] Start: 03-18-2020 HPV TESTING HPV TESTING [facility] Start: 05-11-2017 PAP TESTING PAP TESTING [facility] Start: 05-05-2017 Mammography [facility] Start: 2012 SHINGRIX VACCINE (1 of 2) SANTILLAN GRIX VACCINE (1 of 2) [facility] Start: 2007 COLOGUARD (FIT-DNA) COLOGUARD (FIT-D NA) [facility] Start: 2007 Colonoscopy COLONOSCOPY [facility] Start: 2007 COLORECTAL CANCER SCREENING COLORECTAL CANCER SCREENING [facility] Start: [address] COLONOGRAPHY [facility] Start: 2007 DIABETES SCREEN DIABETES SCREEN [facility] Start: 2007 Diabetes Screening Diabetes Screenin g [facility] Start: 2007 FECAL OCCULT BLOOD FECAL OCCULT BLOO D [facility] Start: 2007 Lipid 1996 panel - S zoey or Plasma Lipid Screening [facility] Start: 2007 LIPID SCREEN LIPID SCREEN [facility] Start: 2007 SIGMOIDOSCOPY SIGMOIDOSCOPY [facility] Start: 1981 Urine microalbumin profile [facility] Start: 1980 HEPATITIS C SCREENING HEPATITIS C SC LAUREL [facility] End: 12-27-2023 Echocardiography ECHO Cardiology Routine Abnormal ECG Encounter for screening for cardiovascular disorders 1 Occurrences starting 12/26/2022 until 12/27/2023 [facility] Work Phone: Comment on above: 1 Occurrences starti ng 12/26/2022 until 12/27/2023 Glucose [Mass/volume ] in Serum or Plasma [facility] Work Phone: Lipid 1996 panel - S zoey or Plasma [facility] Work Phone: End: 09-08-2022 Mra head w/o contrst material MRA BRAIN WO IVCON Radiology Routine Transient diplopia Transient cerebral ischemia, unspecified type 1 Occurrences starting 08/09/2021 until 09/08/2022 [facility] Work Phone: Comment on above: 1 Occurrences starti ng 08/09/2021 until 09/08/2022 End: 09-08-2022 Mri brain brain stem w/o contrast material MRI BRAIN WO IVCON Radiology Routine Transient diplopia Transient cerebral ischemia, unspecified type 1 Occurrences starting 08/09/2021 until 09/08/2022 [facility] Work Phone: Comment on above: 1 Occurrences starti ng 08/09/2021 until 09/08/2022 OUTSIDE VENDOR CARDI AC OUTPATIENT EXTENDED RHYTHM RECORDING (WITHOUT TELEMETRY) OUTSIDE VENDOR CARDIAC OUTPATIENT EXTENDED RHYTHM RECORDING (WITHOUT TELEMETRY) Holter Routine Abnormal ECG Encounter for screening for cardiovascular disorders Ordered: 12/26/2022 [facility] Work Phone: Comment on above: Ordered: 12/26/2022 Path report.final Dx Spec [facility] Patient referral [facility] Work Phone: Thyroid stimulating hormone measurement [facility] Work Phone: [facility] Payers Date Payer Category Payer Self-pay [id number] 2022 Private Health Insurance [id number] 2021 Unknown [employer] PPO [id number] 2021-Present [phone] [address] [place] [address] PPO [id number] 2021 Unknown [employer] PPO [id number] 2021-Present [phone] [address] [place] [address] PPO [id number] 2003 Unknown [id number] 1960 Unknown [id number] 1960 Unknown [id number] .651 1960 Unknown [id number] .651 1960 Unknown [id number] .651 1960 Unknown [id number] .594 Unknown [facility] PACKAGE PLAN [id number] Unknown [id number] .462 Unknown [id number] .462 Unknown [id number] [id number] .462 Unknown [id number] 2.16.840.1.303264.3.579.2 .462 Unknown [id number] 2.16.840.1.591672.3.579.2 .462 Unknown [id number] 2.16.840.1.757428.3.579.2 .462 Unknown [id number] [id number] .462 Unknown [id number] 2.16.840.1.435899.3.579.2 .462 Unknown [id number] [id number] .462 Unknown [id number] 2.16.840.1.479605.3.579.2 .462 Unknown [id number] [id number] .462 Unknown [id number] [id number] .462 Unknown [id number] .462 Social History Date Type Detail Facility Start: 12-26-2022 End: 08-13-2024 Tobacco smoking status NHIS Never smoked tobacco [facility] Start: 08-09-2021 End: 12-26-2022 Alcohol intake Current drinker of alcohol (finding) [facility] Start: 08-09-2021 End: 12-26-2022 Alcohol intake [facility] Start: 1960 Sex Assigned At Female [facility] Start: 07-30-2021 End: 08-09-2021 Exposure to SARS-CoV-2 (event) Not sure [facility] Start: 09-30-2021 End: 10-05-2022 Tobacco smoking status NHIS Unknown if ever smoked [facility] Start: 09-17-2019 Non-smoker [facility] Start: 08-09-2021 End: 12-26-2022 Tobacco use panel [facility] Adult Depression Screening Assessment 0 [facility] Start: 07-20-2021 Gender identity Identifies as female gender (finding) [facility] Start: 12-26-2022 Tobacco use and exposure Smokeless tobacco non-user [facility] NEGATED: Highlighted row Not [facility] Goals Date Patient Goal Desired Activity /State Mental Status Date Assessment Result Facility 08-04-2024 Cognitive function Voice/Name [facility] Work Phone: Clinical Notes 08-09-2021 to 08-13-2024 Note Date & Type Note Facility 08-13-2024 Discharge summary [facility] 08-13-2024 Radiology Diagnostic study note [facility] Imaging Services [address] [place] [address] Abdomen Limited MR#: [id number] Acct: [id number] Name: ALFONSO VERDUGO Rep #: [id number] : 1960 F 64 From: Zofia Guadalupe MD PCP: Dr. Millie Payton MD Status: REG ER Study:Abdomen Limited Date of Exam: 07/21 07/13 Exam# [id number] Ordering Dr: Darion Wheatley DO PROCEDURE: ABDOMEN LIMITED 08/13/2024 REASON FOR EXAM: RUQ PAIN TECHNIQUE: ABDOMEN LIMITED COMPARISON: None FINDINGS: GALLBLADDER: Multiple gallstones. There is gallbladder sludge. No gallbladder wall thickening or pericholecystic fluid. Negative Mendoza sign. COMMON BILE DUCT: Measures 4.6 mm. No intrahepatic biliary dilatation. LIVER: Normal size. Normal echotexture. No definite hepatic mass. RIGHT KIDNEY: Normal in size and echogenicity. No mass. No urinary stones. No hydronephrosis. Nonspecific echogenic pancreas. US/Abdomen Limited IMPRESSION: Cholelithiasis without acute cholecystitis. Nonspecific echogenic pancreas. Reading Location: [facility] CC: Dr. Millie Payton MD; Dr. Mich Wheatley DO ~ Cutter Operator Tile: Signed [facility] 08-13-2024 Discharge summary Note Date/Time August 13, 2024 4:08pm [facility] Medical Records Department [address] [place] [address] Emergency Department Summary 08/13/24 MR#: [id number] Acct: [id number] Name: ALFONSO VERDUGO PASCALE Rep #:[id number] : 1960 64 From: Mich Wheatley DO PCP: Dr. Millie Payton MD Status:REG ER Location: ED HPI History of Present Illness Chief Complaint: Abd Pain Narrative Narrative: Patient is a 64-year-old female with past medical history anxiety, depression, thyroid disease who presented to the emergency department with chief complaint of abdominal pain. Patient states that she has had abdominal pain for at least a month now if not longer and notes that she feels like it has been progressively worsening. States that last week she had a colonoscopy with 1 polyp removed and called the model maker office and they state that she should not still be having pain from this. They advised her to go to the emergency department to be evaluated. Patient also notes that she is going on vacation next week and given that this is worsening does not want to end up in the ER down there on vacation therefore she came here also to be evaluated. Patient states that her pain does not get exacerbated with eating. [facility] Medical History Wears glasses Wears contact lenses History of steroid therapy Thyroid disease Injury of head and neck Non-smoker History of edema History of echocardiogram Depression with anxiety Goiter Home Medications ?Medication ?Instructions ?Recorded ?Last Taken ?Type venlafaxine 75 mg capsule,extended 75 mg PO DAILY #30 caps 05/30/24 08/03/24 Rx release 24 hr cholecalciferol (vitamin D3) 50 50 mcg PO DAILY 08/03/24 History mcg (2,000 unit) capsule levothyroxine 75 mcg tablet 75 mcg PO DAILY 07/31/24 0 08/04/24 History Allergy/AdvReac Type Severity Reaction Status Date / Time Penicillins AdvReac Rash Verified 07/31/24 10:26 Sulfa (Sulfonamide AdvReac Rash Verified 07/31/24 10:26 Antibiotics) Family History Grandmother Breast cancer Grandfather Diabetes Surgical History Hx of colonoscopy History of endometrial ablation S/P dilation and curettage S/P gastric surgery Status post breast reduction Social History Smoking Status: Never smoker alcohol intake: current details: occasionally substance use type: does not use caffeine: Yes what type of physical activity do you participate in: walking frequency: 3-4 times per week seatbelt use: always do you feel safe at home: Yes additional social history: Remarried to Rich! 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 [employer] Narrative Constitutional: Denies fevers, chills, headaches Cardiovascular: Denies chest pain or palpitations Respiratory: Denies coughing wheezing shortness of breath Abdomen: Complains of abdominal pain as noted above denies nausea vomiting diarrhea : Denies urinary symptoms Neurological: Denies numbness, weakness, tingling Musculoskeletal: Denies back pain Skin: Denies any rashes or lesions EXAM Physical Exam Narrative Exam Narrative: General: Patient sitting in chair resting comfortably did not appear to be in acute distress Head: Atraumatic, normocephalic Eyes: PERRL bilaterally, EOMI bilateral, no conjunctival injection noted Neck: Soft, supple, trachea midline Cardiovascular: Regular rate and rhythm Respiratory: Clear to auscultation bilaterally Abdomen: Soft, nondistended, mild tenderness to palpation in the right upper quadrant no rebound or guarding on exam Extremities: +5/5 strength noted in the bilateral upper and lower extremities, radial pulses +2/4 in the 5 extremities, no pedal edema exam Neurological: Patient is following commands knew that she was at [facility] the year is 2024 Skin: Warm, dry, tact no rashes or lesions noted Const Vital Signs: 08/13/24 10:41 08/13/24 12:55 08/13/24 14:00 Temperature 97.8 F Temperature Source Temporal Pulse Rate 68 64 Respiratory Rate 16 18 Blood Pressure 140/92 H 139/63 H 136/67 H Blood Pressure Mean 108 88 90 Pulse Ox 99 99 Oxygen Delivery Method Room Air Room Air MDM MDM MDM Narrative Medical decision making narrative: Patient is a 64-year-old female who presented to the emergency department chief complaint of abdominal pain. On the differential diagnosis includes but not limited to cholecystitis, choledocholithiasis, cholelithiasis, pancreatitis. Once workup is obtained and reviewed she will be reevaluated. Patient be given IV fluids for hydration. Patient's CBC was reviewed showed no evidence leukocytosis white blood count was6, he was 13.5, platelet count of 306. Patient sodium was normal at 140, potassium normal 3.7, creatinine was normal at 0.68. Patient AST and ALT were 18 and 12 respectively, lipase normal 37. Patient's urinalysis reviewed showed no evidence of infection. Patient's ultrasound was reviewed and showed cholelithiasis without acute cholecystitis there was gallbladder sludge and multiple gallstones noted. I had the patient moved from the [facility] and put her in a room she would lie down and I pushed on her right upper quadrant and she states that this was painful for her. I reached out to on-call general surgeon Dr. Roberts who states that she should call his office when I discharged her and he will see her in the office tomorrow. I discussed this plan with the patient she is agreeable this plan all question concerns answered she was discharged home in stable condition. Lab Data Labs: Laboratory Results - last 24 hr 08/13/24 12:45 WBC 6.0 RBC 4.88 Hgb 13.5 Hct 43.2 MCV 88.5 MCH 27.7 MCHC 31.3 L RDW Std Deviation 48.9 H RDW Coeff of Annel 15.0 H Plt Count 306 MPV 10.6 Immature Gran % (Auto) 0.300 Neut % (Auto) 59.5 Lymph % (Auto) 31.3 [place] % (Auto) 6.0 Eos % (Auto) 2.2 Baso % (Auto) 0.7 Absolute Neuts (auto) 3.6 Absolute Lymphs (auto) 1.87 Nucleated RBC % 0 Sodium 140 Potassium 3.7 Chloride 104 Carbon Dioxide 24.2 Anion Gap 12 BUN 15 Creatinine 0.68 L Estim Creat Clear Calc 99.04 Est GFR (MDRD) Non-Af 98 BUN/Creatinine Ratio 22.5 H Glucose 185 H Calcium 8.9 Total Bilirubin 0.33 AST 18 ALT 12 Alkaline Phosphatase 113 H Total Protein 7.1 Albumin 4.0 Globulin 3.1 Albumin/Globulin Ratio 1.3 Lipase 37 Urine Color Yellow Urine Clarity Sl. Cloudy Urine pH 6.0 Ur Specific Colbert 1.010 Urine Protein Negative Urine Glucose (UA) Normal Urine Ketones Negative Urine Occult Blood Negative Urine Nitrite Negative Urine Bilirubin Negative Urine Urobilinogen Normal Ur Leukocyte Esterase 100 H Urine RBC 0 SEEN Urine WBC 0-5 SEEN Ur Squamous Epith Cells 0-5 SEEN Urine Bacteria 0 SEEN Urine Mucus 0 SEEN Radiography Diagnostic Testing: Clinical Impression(s) from Imaging Studies Abdomen Ultrasound 08/13/24 12:51 IMPRESSION: Cholelithiasis without acute cholecystitis. Nonspecific echogenic pancreas. Reading Location: [facility] Discharge Plan Triage Chief Complaint: Abd Pain ED Provider: Mich Wheatley Dx/Rx/DC Orders Clinical Impression: Abdominal pain, Cholelithiasis Prescriptions: No Action venlafaxine 75 mg capsule,extended release 24hr 75 mg PO DAILY Qty: 30 12RF levothyroxine 75 mcg tablet 75 mcg PO DAILY cholecalciferol (vitamin D3) 50 mcg (2,000 unit) capsule 50 mcg PO DAILY Primary Care Provider: Millie Payton Referrals: Care Physician,No Primary [Non-Staff] - Jeet Roberts MD [Med Staff - Active Staff] - Activity Restrictions/Additional Instructions: Call Dr. Roberts office when you are discharged here for your appointment tomorrow. Return with worsening symptoms or concerns. Print Language: Citizen Of [place] Disposition Disposition: Home, Self Care What to do if you have Problems For any increased pain, shortness of breath, bleeding, nausea or vomiting, chestpain, or any unexpected problems, contact your Primary Care Provider. Call [facility] ([phone]) or report to the closest Emergency Room. Call 911 if necessary. 08/13/24 1608 <Electronically signed by Mich Wheatley DO> Cosigner Signature (if applicable): CC: Dr. Millie Payton MD ~ Signed [facility] Work Phone: [phone] Consult note [facility] Medical Records Department [address] [place] [address] Anesthesia Postop Eval I 08/04/24809 MR#: [id number] Acct: [id number] Name: ALFONOS VERDUGO PASCALE Rep #:[id number] : 1960 64 From: Juancarlos Wheatley PCP: Dr. Millie Payton MD [place] [place] C Location: [place] [address] Anesthesia: Postop Eval I Current Vital Signs Temperature: 98.5 F Pulse Rate: 62 Blood Pressure: 109/65 Respiratory Rate: 16 Pulse Ox: 99 Oxygen Delivery Method: Room Air Assessment Airway patent: Yes Spontaneous unlabored respirations: Yes Mental status: Awake and Calm nausea: No Vomiting: No Anesthesia Complication: No Fluid Hydration Crystalloid volume administer (ml): 800 Total IV fluid infused: 800 Progress Note Anesthesia document: Postop Eval 1 completed: Yes 08/04/24 0812 > Date _ Juancarlos Montanez Signature: Date CC: ~ Signed [facility]06-16-2025 Procedure note [facility] Medical Records Department [address] [place] [address] Operative Report - CC Letter MR#: [id number] Acct: [id number] Name: ALFONSO VERDUGO Rep #:[id number] : 1960 64 From: Maryellen Lopez MD PCP: Dr. Millie Payton MD [place] [place]/04/2024 Millie Payton Re : Colonoscopy procedure for Alfonso Verdugo Dear Tata This procedure was performed on Sunday, August 04, 2024. My impressions and recommendations are as follows: Impressions : - One less than 5 mm polyp in the descending colon, removed with a hot snare. Resected and retrieved. - The examination was otherwise normal on direct and retroflexion views. Recommendations : - Discharge patient to home. - Resume previous diet. - Continue present medications. - Await pathology results. - Repeat colonoscopy in 3 years for surveillance based on pathology results. My findings are described in the full procedure note, which is enclosed. If I can be of further assistance, please feel free to contact me at Doctor phone number(s): , Work: . Sincerely, MD Maryellen Ramires MD 08/04/2024 8:03:27 AM This report has been signed electronically. 08/04/24802 Date _ Maryellen Montanez Signature: Date (if indicated) CC: Dr. Millie Payton MD; Dr. Maryellen Lopez MD ~ Date Dictated: 08/04/24726 Date Transcribed: Cutter Operator Tile: TR Signed [facility]06-16-2025 Procedure note [facility] Medical Records Department [address] [place] [address] Colonoscopy Report MR#: [id number] Acct: [id number] Name: ALFONSO VERDUGO Rep #:[id number] : 1960 64 From: Maryellen Lopez MD PCP: Dr. Millie Payton MD [place] Patient Name: Alfonso Verdugo Procedure Date: 08/04/2024 7:27 AM Date of : 1960 Age: 64 Procedure: Colonoscopy Indications: High risk colon cancer surveillance: Personal history of colonic polyps, Family history of colon cancer in a first-degree relative before age 60 years Providers: Maryellen Lopez MD Referring MD: Millie Payton Medicines: Monitored Anesthesia Care Patient Profile: This is a 64 year old female. Last Colonoscopy: 5 years ago. Complications: No immediate complications. Procedure: Pre-Anesthesia Assessment: - Prior to the procedure, a History and Physical was performed, and patient medications and allergies were reviewed. The patient's tolerance of previous anesthesia was also reviewed. The risks and benefits of the procedure and the sedation options and risks were discussed with the patient. All questions were answered, and informed consent was obtained. Prior Anticoagulants: The patient has taken no anticoagulant or antiplatelet agents. ASA Grade Assessment: Per anesthesia. After reviewing the risks and benefits, the patient was deemed in satisfactory condition to undergo the procedure. After I obtained informed consent, the scope was passed under direct vision. Throughout the procedure, the patient's blood pressure, pulse, and oxygen saturations were monitored continuously. The colonoscope was introduced through the anus and advanced to the cecum, identified by the appendiceal orifice, ileocecal valve and palpation. The colonoscopy was performed without difficulty. The patient tolerated the procedure well. The quality of the bowel preparation was good. Scope In: 7:41:17 AM Scope Withdrawal Time 0 hours 10 minutes 55 seconds Scope Out: 7:57:19 AM Total Procedure Duration Time 0 hours 16 minutes 2 seconds Findings: The perianal and digital rectal examinations were normal. A less than 5 mm polyp was found in the descending colon. The polyp was semi-pedunculated. The polyp was removed with a hot snare. Resection and retrieval were complete. The exam was otherwise without abnormality on direct and retroflexion views. Impression: - One less than 5 mm polyp in the descending colon, removed with a hot snare. Resected and retrieved. - The examination was otherwise normal on direct and retroflexion views. Recommendation: - Discharge patient to home. - Resume previous diet. - Continue present medications. - Await pathology results. - Repeat colonoscopy in 3 years for surveillance based on pathology results. Procedure Code(s): --- Professional --- 89991, PT, Colonoscopy, flexible; with removal of tumor(s), polyp(s), or other lesion(s) by snare technique Diagnosis Code(s): --- Professional --- Z86.010, Personal history of colonic polyps D12.4, Benign neoplasm of descending colon Z80.0, Family history of malignant neoplasm of digestive organs CPT copyright 2021 [place] [employer]. All rights reserved. The codes documented in this report are preliminary and upon wharfmaster review may be revised to meet current compliance requirements. MD Maryellen Ramires MD 08/04/2024 8:03:27 AM This report has been signed electronically. Number of Addenda: 0 Note Initiated On: 08/04/2024 7:27 AM 08/04/24802 Date _ Maryellen Lopez MD Cosigner Signature: Date (if indicated) CC: Dr. Millie Payton MD; Dr. Maryellen Lopez MD ~ Date Dictated: 08/04/24726 Date Transcribed: Cutter Operator Tile: TR Signed [facility]06-16-2025 History and physical note [facility] Medical Records Department [address] [place] [address] History & Physical Exam 08/04/24 07 MR#: [id number] Acct: [id number] Name: ALFONSO VERDUGO Rep #:[id number] : 1960 64 From: Maryellen Lopez MD PCP: Dr. Millie Payton MD [place] [place]: [place] [address] HPI - General General Date of Service: 08/04/24 HPI Narrative ALFONSO VERDUGO, is a 64 F who presents for screening colonoscopy due history of colon polyps?tubular adenoma. Patient last colonoscopy was 5 years ago with , about 4 years ago patient's brotherwas diagnosed with colon cancer at age 55.. Patient has bowel movements daily denies any blood. Patient denies any chronic abdominal pain/nausea/vomiting/reflux. [facility] Medical History Wears glasses Wears contact lenses History of steroid therapy Thyroid disease Injury of head and neck Non-smoker History of edema History of echocardiogram Depression with anxiety Goiter Home Medications ?Medication ?Instructions ?Recorded ?Last Taken ?Type venlafaxine 75 mg capsule,extended 75 mg PO DAILY #30 caps 05/30/24 08/03/24 Rx release 24 hr cholecalciferol (vitamin D3) 50 50 mcg PO DAILY 08/03/24 History mcg (2,000 unit) capsule levothyroxine 75 mcg tablet 75 mcg PO DAILY 07/31/24 0 08/04/24 History Allergy/AdvReac Type Severity Reaction Status Date / Time Penicillins AdvReac Rash Verified 07/31/24 10:26 Sulfa (Sulfonamide AdvReac Rash Verified 07/31/24 10:26 Antibiotics) Family History Grandmother Breast cancer Grandfather Diabetes Surgical History Hx of colonoscopy History of endometrial ablation S/P dilation and curettage S/P gastric surgery Status post breast reduction Social History Smoking Status: Never smoker alcohol intake: current details: occasionally substance use type: does not use caffeine: Yes what type of physical activity do you participate in: walking frequency: 3-4 times per week seatbelt use: always do you feel safe at home: Yes additional social history: Remarried to Rich! 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 Past Medical/Surgical History Planned Operation Planned Operative Procedure(s): COLONOSCOPY-OA S.O.S: No Previous Hospitalizations/Surgeries HX Hospitalizations: No HX of Surgeries: bariatric sleeve surgery bilat breast reduction D&C x2 uterine ablation Any Problems With Anesthesia: No You/Your Family Experience Fever (Hyperthermia) With Anes: No Cholinesterase deficiency: No Cardiovascular Hx Chest Pain within Last 2 months: No Hx of Irregular Heartbeat and/or Afib: No Hx Heart Attack: No Hx Congestive Heart Failure: No Hx Rheumatic Fever: No Hx Hypertension: No Hx Internal Defibrillator: No Hx Pacemaker: No Hx Cardiac Catheterization: No Hx Cardiac Surgery/Stents/Etc.: No Hx Stress Test: No Hx Pain in Legs when Walking/Leg Cramps: No Respiratory Chronic Cough: No HX of Shortness of Breath: No Hoarseness: No Hx Chronic Obstructive Pulmonary Disease (COPD): No Hx Asthma: No Hx Emphysema: No Hx Sleep Apnea: No CPAP: No BIPAP: No Hx Respiratory Tract Infection/Cold (presently): No Do You Snore Loudly (louder than talking or can be heard): No Do You Often Feel Tired/ Fatigued/ Sleepy Dring Daytime?: No Has Anyone Observed You Stop Breathing During Sleep?: No Result (for STOP score): Negative Hx Smoking: No Smoking Status: Never smoker Gastrointestinal Hx Gastrointestinal Disorders: No (hx bariatric surgery) Hx Gastrointestinal Bleed: No Hx Ulcer: No Hx Hiatal Hernia: Yes (repaired with bariatric surgery) Difficulty Chewing/Swallowing: No Special diet followed at home: No (smaller meals) Hx Unplanned Weight Loss of 20#: No HX Unplanned Weight Gain of 20#: No Neurological Hx Seizures: No HX Syncope/Blackout Spells/Unconsciousness: No Hx Transient Ischemic Attacks (TIA): No Hx Multiple Sclerosis: No Hx Parkinson's Disease: No Hx Head/Neck Injury: No Hx Headaches: No Hx Back Injury/Pain: No Recent Onset of Speech Difficulty: No Restless Legs: No Does patient have nerve stimulator: No Blood Disorder Hx Leukemia: No Bleeding Tendencies: No Hx Deep Vein Thrombosis: No Hx High Cholesterol: No Blood Transmitted Disease: No Hx Hepatitis: No Hx Cirrhosis: No Hx Anemia: No Hx Blood Disorders: No Reproduction : No Is Patient Lactating: No Hx Hysterectomy: No Hx Tubal Ligation: No Are You Post Menopause: Yes Genitourinary Hx Renal Disease: No Musculoskeletal Hx Arthritis: No Hx Rheumatoid Arthritis: No Hx Gout: No Recent Onset of an Orthopedic Problem: No Endocrine Hx Diabetes: No Thyroid Disease: Yes (ON MEDS) Hx Steroid Therapy: No Psycho/Social Hx Substance Use: No Hx Alcohol Use: No Hx Anxiety: Yes (on med) Hx Depression: Yes (on med) Mental Illness: No Hx Dementia: No Miscellaneous Hx Cancer: Yes (SKIN CA) Recent Exposure to Contagious Disease: No Hx of C-Diff: No Any Loose Teeth: No Allergies Penicillins Adverse Reaction (Verified 07/31/24 10:26) Rash Sulfa (Sulfonamide Antibiotics) Adverse Reaction (Verified 07/31/24 10:26) Rash Discharge Is Pt Admitted From a Fpc, or a Intermediate: No After D/C, Where Do you Plan to Go: Return Home From the [facility] History Number of Risk Factors: 4 Vital Signs Vital Signs Vital Signs: 08/04/24 06:48 08/04/24 06:48 08/04/24 07:15 Temperature 98.0 F 98.0 F Temperature Source Temporal Pulse Rate 78 78 Respiratory Rate 18 18 Respiratory Pattern Normal Blood Pressure 148/98 H 148/98 H Blood Pressure Mean 114 Blood Pressure Source Monitor Blood Pressure Position Semi-Fowlers Blood Pressure Location Right Arm Pulse Ox 98 98 Oxygen Delivery Method Room Air Room Air Weight Weight: 207 lb 3.752 oz Body Mass Index (BMI) 33.4 Physical Exam Const alert, oriented x3 and no apparent distress HEENT normocephalic and head/scalp atraumatic Resp normal respiratory effort Cardio regular rate GI soft to palpation and non-tender; Negative for non-distended Palpation: Negative for guarding Extremity no clubbing, cyanosis or edema Skin no rashes or lesions noted Neuro CN's II-XII intact bilaterally Psych mental status grossly normal Assessment & Plan Assessment/Plan (1) Family history of colon cancer: (2) Hx of colonic polyps: Surgery Risks - Colonoscopy I discussed with the patient the risks of the procedure: Yes Risks Include but are not Limited To: Risks include but are not limited to: Bleeding, perforation requiring further surgery, inability to complete colonoscopy requiring barium enema. 08/04/24 07 Cosigner Signature (if applicable): CC: Dr. Millie Payton MD; Dr. Maryellen oLpez MD~ Signed [facility]06-16-2025 [facility] Medical Records Department [address] [place] [address] History Physical Exam 08/04/24 0720 MR#: [id number] Acct: [id number] Name: ALFONSO VERDUGO Rep #: [id number] : 1960 64 From: Maryellen Lopez MD PCP: Dr. Millie Payton MD Status:[facility] Location: [place] [address] HPI - General General Date of Service: 08/04/24 HPI Narrative ALFONSO VERDUGO, is a 64 F who presents for screening colonoscopy due history of colon polyps???tubular adenoma. Patient last colonoscopy was [address] Infante, about 4 years ago patient's brother was diagnosed with colon cancer at age 55.. Patient has bowel movements daily denies any blood. Patient denies any chronic abdominal pain/nausea/vomiting/reflux. [facility] Medical History Wears glasses Wears contact lenses History of steroid therapy Thyroid disease Injury of head and neck Non-smoker History of edema History of echocardiogram Depression with anxiety Goiter Home Medications ???Medication ???Instructions ???Recorded ???Last Taken ???Type venlafaxine 75 mg capsule,extended 75 mg PO DAILY #30 caps 05/30/24 08/03/24 Rx release 24 hr cholecalciferol (vitamin D3) 50 50 mcg PO DAILY 07/31/24 08/03/24 History mcg (2,000 unit) capsule levothyroxine 75 mcg tablet 75 mcg PO DAILY 07/31/24 08/04/24 History Allergy/AdvReac Type Severity Reaction Status Date / Time Penicillins AdvReac Rash Verified 07/31/24 10:26 Sulfa (Sulfonamide AdvReac Rash Verified 07/31/24 10:26 Antibiotics) Family History Grandmother Breast cancer Grandfather Diabetes Surgical History Hx of colonoscopy History of endometrial ablation S/P dilation and curettage S/P gastric surgery Status post breast reduction Social History Smoking Status: Never smoker alcohol intake: current details: occasionally substance use type: does not use caffeine: Yes what type of physical activity do you participate in: walking frequency: 3-4 times per week seatbelt use: always do you feel safe at home: Yes additional social history: Remarried to Rich! 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 Past Medical/Surgical History Planned Operation Planned Operative Procedure(s): COLONOSCOPY-OA S.O.S: No Previous Hospitalizations/Surgeries HX Hospitalizations: No HX of Surgeries: bariatric sleeve surgery bilat breast reduction D C x2 uterine ablation Any Problems With Anesthesia: No You/Your Family Experience Fever (Hyperthermia) With Anes: No Cholinesterase deficiency: No Cardiovascular Hx Chest Pain within Last 2 months: No Hx of Irregular Heartbeat and/or Afib: No Hx Heart Attack: No Hx Congestive Heart Failure: No Hx Rheumatic Fever: No Hx Hypertension: No Hx Internal Defibrillator: No Hx Pacemaker: No Hx Cardiac Catheterization: No Hx Cardiac Surgery/Stents/Etc.: No Hx Stress Test: No Hx Pain in Legs when Walking/Leg Cramps: No Respiratory Chronic Cough: No HX of Shortness of Breath: No Hoarseness: No Hx Chronic Obstructive Pulmonary Disease (COPD): No Hx Asthma: No Hx Emphysema: No Hx Sleep Apnea: No CPAP: No BIPAP: No Hx Respiratory Tract Infection/Cold (presently): No Do You Snore Loudly (louder than talking or can be heard): No Do You Often Feel Tired/ Fatigued/ Sleepy Dring Daytime?: No Has Anyone Observed You Stop Breathing During Sleep?: No Result (for STOP score): Negative Hx Smoking: No Smoking Status: Never smoker Gastrointestinal Hx Gastrointestinal Disorders: No (hx bariatric surgery) Hx Gastrointestinal Bleed: No Hx Ulcer: No Hx Hiatal Hernia: Yes (repaired with bariatric surgery) Difficulty Chewing/Swallowing: No Special diet followed at home: No (smaller meals) Hx Unplanned Weight Loss of 20#: No HX Unplanned Weight Gain of 20#: No Neurological Hx Seizures: No HX Syncope/Blackout Spells/Unconsciousness: No Hx Transient Ischemic Attacks (TIA): No Hx Multiple Sclerosis: No Hx Parkinson's Disease: No Hx Head/Neck Injury: No Hx Headaches: No Hx Back Injury/Pain: No Recent Onset of Speech Difficulty: No Restless Legs: No Does patient have nerve stimulator: No Blood Disorder Hx Leukemia: No Bleeding Tendencies: No Hx Deep Vein Thrombosis: No Hx High Cholesterol: No Blood Transmitted Disease: No Hx Hepatitis: No Hx Cirrhosis: No Hx Anemia: No Hx Blood Disorders: No Reproduction : No Is Patient Lactating: No Hx Hysterectomy: No Hx Tubal Ligation: No Are You Post Menopause: Yes Genitourinary Hx Renal Disease: No Musculoskeletal Hx Arthritis: No Hx Rheumatoid Arthritis: No Hx Gout: No Recent Onset of an Orthopedic Prob (more content not included)...[facility]2025 Consult note [facility] Medical Records Department [address] [place] [address] Pre-Anesthesia Evaluation 08/04/24 0710 MR#: [id number] Acct: [id number] Name: ALFONSO VERDUGO Rep #:[id number] : 1960 64 From: Do martins CRNA PCP: Dr. Millie Payton MD Status:[facility] Y Race: C Location: [place] [address] ASA Classification* ASA Classification ASA Classification: 2 Assessment & Plan Anesthesia* Anesthesia Assessment Anesthesia Assessment: Discussed sedation and/or anesthesia options, risks, benefits, and alternatives with patient/parents/legal guardian/POA. Questions invited. The patient/parents/legal guardian/POA seems to understand and agrees to proceedwith anesthesia plan. Reviewed the physical assessment, medical history, allergy history and patient home medications list prior to surgery/procedure/anesthetic and documented any changes. Performed airway and anesthesia risk assessments. Anesthesia Type Anesthesia Type: MAC History Source History Obtained from:: Patient and Chart Anesthesia Focused Assessment* Temperature: 98.0 F Pulse Rate: 78 Blood Pressure: 148/98 Respiratory Rate: 18 Pulse Ox: 98 Oxygen Delivery Method: Room Air Airway Assessment Mouth opens: >3 cm Mallampati Score: I Teeth Condition: Intact Neck Range of motion (ROM): Full ROM Labs Anesthesia Preop lab: CBC WBC 5.2 K/mm3 (4.4-11.0) 12/19/22 09:58 12/19/22 RBC 5.04 M/mm3 (4.2-5.4) 12/19/22 09:58 12/19/22 Hgb 13.8 g/dL (12.0-15.0) 12/19/22 09:58 12/19/22 Hct 43.9 % (37-47) 12/19/22 09:58 12/19/22 Plt Count 318 K/mm3 (150-450) 12/19/22 09:58 12/19/22 CHEMISTRY Potassium 3.9 mmol/L (3.5-5.1) 12/19/22 09:58 12/19/22 Sodium 138 mmol/L (136-145) 12/19/22 09:58 12/19/22 BUN 13 mg/dL (7-18) 12/19/22 09:58 12/19/22 Creatinine 0.74 mg/dL (0.55-1.02) 12/19/22 09:58 12/19/22 Glucose 94 mg/dL (74-106) 12/19/22 09:58 12/19/22 TSH 2.34 uIU/mL (0.358-3.74) 03/01/23 10:20 COAG Pre-Assessment Diagnosis/Proposed Procedure Planned Operative Procedure(s): COLONOSCOPY-OA Anesthesia History 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 When Was Last Pacemaker Check QUESTION #4 FULL TEXT: You/Your Family Experience fever (hyperthermia) with Anesthesia Last Oral Intake Last Oral intake: Last Oral Intake NPO since 20:30 08/04/24 06:48 Meds taken in AM with sips of Yes 08/04/24 06:48 water? Meds patient instructed to LEVOTHYROXINE 08/04/24 06:48 take am of surgery PONV PONV - emu farmer: PONV - emu farmer Female Yes 07/31/24 10:35 HX of Motion Sickness No 07/31/24 10:35 HX of N/V After Surgery No 07/31/24 10:35 Non-Smoker Yes 07/31/24 10:35 Duration of Surgery greater No 07/31/24 10:35 than 60 minutes Number of Risk Factors 2 07/31/24 10:35 PONV Score Moderate Risk 07/31/24 10:35 Height & Weight Height & Weight: Anesthesia: Height & Weight Height 5 ft 6 in 08/04/24 06:48 Weight: 94 kg 08/04/24 06:48 Body Mass Index (BMI) 33.4 08/04/24 06:48 Respiratory Assessment Respiratory Assessment - emu farmer: Respiratory Tract Infection Hx - emu farmer Hx Respiratory Tract Infection No 07/31/24 10:35 STOP Sleep Apnea STOP Sleep Apnea - emu farmer: STOP Sleep Apnea - emu farmer Hx Hypertension No 07/31/24 10:35 Hx Sleep [...] than talking or can be heard through closeddoors)? 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 Specify any problems Hx of Preganancy in last 3 No 07/31/24 10:35 Months Nurse Filling Out Transfusion VCHRISTIN 07/31/24 10:35 & Questions: Date: 07/31/24 07/31/24 10:35 Time: 10:37 07/31/24 10:35 Patient unable to answer at this time (ie. confused, unrespo /Reproduction History /Reproductive History - emu farmer: /Reproductive Hx- emu farmer Hx Now No 07/31/24 10:35 Gestational Age (in weeks): EDC: Hx Hx Para Hx Section SAB No 07/31/24 10:35 Active Medications Active Medications: Current Medications Generic Name Dose Route Start Last Admin Trade Name Freq PRN Reason Stop Dose Admin Lactated Ringer's 1,000 mls @ 30 mls/hr 08/04/24 06:45 08/04/24 06:52 IV 30 mls/hr .[id number] SUKHDEV Administration PFSH Medical History Wears glasses Wears contact lenses History of steroid therapy Thyroid disease Injury of head and neck Non-smoker History of edema History of echocardiogram Depression with anxiety Goiter Home Medications ?Medication ?Instructions ?Recorded ?Last Taken ?Type venlafaxine 75 mg capsule,extended 75 mg PO DAILY #30 caps 05/30/24 08/03/24 Rx release 24 hr cholecalciferol (vitamin D3) 50 50 mcg PO DAILY 08/03/24 History mcg (2,000 unit) capsule levothyroxine 75 mcg tablet 75 mcg PO DAILY 07/31/24 0 08/04/24 History Allergy/AdvReac Type Severity Reaction Status Date / Time Penicillins AdvReac Rash Verified 07/31/24 10:26 Sulfa (Sulfonamide AdvReac Rash Verified 07/31/24 10:26 Antibiotics) Family History Grandmother Breast cancer Grandfather Diabetes Surgical History Hx of colonoscopy History of endometrial ablation S/P dilation and curettage S/P gastric surgery Status post breast reduction Social History Smoking Status: Never smoker alcohol intake: current details: occasionally substance use type: does not use caffeine: Yes what type of physical activity do you participate in: walking frequency: 3-4 times per week seatbelt use: always do you feel safe at home: Yes additional social history: Remarried to Rich! 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 Review of Systems (Anesthesia) ROS Narrative System reviewed and no additional complaints, except as documented. 08/04/24 07 tony CORPORATE CONSULTANT> Date _ Do Castro CRNA Cosigner Signature: Date CC: ~ Signed [facility]03-12-2025 Evaluation note* Diagnosis Onset Date Resolution Status Admit Date Depression with anxiety acute 2024 8:32am Obesity (BMI 30.0-34.9) acute 2024 8:32am Other obesity acute April 30, 2024 8:32am S/P gastric surgery acute April 30, 2024 8:32am Depression with anxiety acute A pril 2024 11:27am Goiter acute May 30 11:27am Obesity (BMI 30.0-34.9) acute A pril 2024 11:27am Other obesity acute May 30, 2024 11:27am S/P gastric surgery acute May 30, 2024 11:27am Family history of colon cancer acute August 04, 2024 6:25am Hx of colonic polyps acute August 04, 2024 6:25am [facility] Work Phone: 1(333) 447-263402-02-2025 Consult note Author Juancarlos Wheatley [facility] Note Date/Time August 04, 2024 8:12 am [facility] Medical Records Department [address] [place] [address] Anesthesia Postop Eval I 08/04/24 0810 MR#: [id number] Acct: [id number] Name: ALFONSO VERDUGO Rep #:[id number] : 1960 64 From: Juancarlos Wheatley PCP: Dr. Millie Payton MD Status:REG SDC Y Race: C Location: [place] [address] Anesthesia: Postop Eval I Current Vital Signs Temperature: 98.5 F Pulse Rate: 62 Blood Pressure: 109/65 Respiratory Rate: 16 Pulse Ox: 99 Oxygen Delivery Method: Room Air Assessment Airway patent: Yes Spontaneous unlabored respirations: Yes Mental status: Awake and Calm nausea: No Vomiting: No Anesthesia Complication: No Fluid Hydration Crystalloid volume administer (ml): 800 Total IV fluid infused: 800 Progress Note Anesthesia document: Postop Eval 1 completed: Yes 08/04/24811 <Electronically signed by Juancarlos Wheatley > Date _ Juancarlos Cohenignmaricruz Signature: Date CC: ~ Signed [facility] Work Phone: 1(158) 794-639311-13-2023 Miscellaneous Notes* Telephone Encounter - Bo Shipley - 01/01/2023 9:38 AM EST ECHO order faxed to [facility] at [phone]. Bo Shipley documented [facility]Pe[facility]11-[facility]23 Miscellaneous Notes* Telephone Encounter - Bo Shipley - 12/26/2022 12:14 PM EST Office notes faxed to Dr. Payton ([phone]) and Dr. Brush's ([phone])offices. Bo Shipley documented in this encounterPeoples Hospital11-07-2023 History of Present illness Narrative* Susan Marin - 12/26/2022 10:43 AM EST EVENT MONITOR DISPOSABLE PATCH INSTRUCTIONS Patient Name: Alfonso Verdugo [facility] Number: [id number] Skin prepped and cleansed with alcohol Patch secured to prepped area Monitor Activated Serial #: [id number] Patient Instructed: Prescribed order timeframe Bathing guidelines Usage of event button and diary documentation Return of monitor at the end of prescribed order Call with problems [phone] or [phone]. [phone] Patient expresses a good understanding of instructions Susan Marin documented in this encounterPeoples Hospital11-07-2023 Instructions* Patient Instructions* Vinh Kapadia MD - 12/26/2022 10:09 AM [...] Triglycerides < 150, HDL > 40, LDL <100 or 70 (with history of stroke, heart attack or stents) Last year - high 230+ Follow up with PCP ; can consider weight loss, exercise, low cholesterol and recheck six months and/or medication for reducing cholesterol #3. Blood sugar control with goal HgA1C less than 6.5. On target #4. Tobacco cessation and avoid 2nd and 3rd hand smoke.N/A #5 Weight loss : [place] BMI (Body Mass Index = weight (kg) / height in m2) between 18.5 and 24.9. #6. Regular exercise : Goal of at least 150 minutes per week of moderate intensity (heart rate up to 50-60% higher than resting heart rate ' you can talk but not sing' ) exercise. This can be dividedinto 30 minutes a day five days a [...] Face time was minutes. documented in this encounterPeoples Hospital11-07-2023 History of Present illness Narrative* Vinh Kapadia MD - 12/26/2022 8:45 AM EST Images from the original note were not included. [facility] [place] [facility] Department of Cardiovascular Medicine SECTION OF CLINICAL CARDIOLOGY OUTPATIENT VISIT DATE December 26, 2022 OUTPATIENT VISIT TYPE NEW PRIMARY CARE PHYSICIAN: Millie Payton (Evelio) [address] [place] [address] REFERRING PHYSICIAN: Millie Campa) [address] [facility] [address] CHIEF COMPLAINT: Abnormal ECG - Cardiac clearance HISTORY OF PRESENT ILLNESS: NURSING INTAKE: Ms. Verdugo is a 62 year old female from [place], [place] here today for cardiovascular evaluation related to abnormal EKG reading. She mentions that before she starts a medication from her ROLLER VARNISHER for weight loss, her OB had her get an EKG done which came back abnormal. Her OB wanted her to see cardiology to ensure everything is okay from a cardiac standpoint prior to starting this medication. This isher first time seeing a retail sales teammate. Alfonso has a significant medical history of: [...] pain, palpitations, shortness of breath, lightheadedness, dizziness, syncope,PND, and edema. 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 Skin: No clubbing, no cyanosis. Eyes: Extra ocular movements intact Oropharynx: Teeth in good repair. Neck: No jugular venous distention, no carotid bruits, carotids have a normal upstroke, no palpablethyromegaly. Lungs: Clear to auscultation bilaterally, no wheezing [...] CARDIOVASCULAR MEDICINE TESTING: ECG 12/26/2022 IMPRESSION: Ms. Verdugo is a 62 year old female from [place], [place] here today for cardiovascular evaluation related to abnormal EKG . Referred by ROLLER VARNISHER for cardiac clearance prior to initiating phentamine [...] pain, palpitations, shortness of breath, lightheadedness, dizziness, syncope,PND, and edema. -Vitals in office today: LUE [...] Triglycerides < 150, HDL > 40, LDL <100 or 70 (with history of stroke, heart attack or stents) Last year - high 230+ Follow up with PCP ; can consider weight loss, exercise, low cholesterol and recheck six months and/or medication for reducing cholesterol #3. Blood sugar control with goal HgA1C less than 6.5. On target #4. Tobacco cessation and avoid 2nd and 3rd hand smoke.N/A #5 Weight loss : [place] BMI (Body Mass Index = weight (kg) / height in m2) between 18.5 and 24.9. #6. Regular exercise : Goal of at least 150 minutes per week of moderate intensity (heart rate up to 50-60% higher than resting heart rate ' you can talk but not sing' ) exercise. This can be dividedinto 30 minutes a day five days a week of which 2 days of strength training recommended. Start slowly and increase activity as tolerated. The main goal is to be consistent. #7 Healthy eating - mediterranean diet recommended ; portion control If echo and heart monitor normal - continue to follow up with PCP, ROLLER VARNISHER and RTC as needed Cc: Millie Brush MD CONTACT INFORMATION:Vinh Kapadia M.D, MPH, [facility] [place] [facility] Desk [id number] [address] [place] [address] Office Office Appointments: [phone] documented in this encounterPeoples Hospital08-17-2023 NotePap Smear Specimen AdequacyAugust 2022 11:59pmComment.Satisfactory for evaluation. Endocervical and/or squamous metaplasticcells (endocervical component)are present.[facility]ACED A#[id number] Health SystemComment on above: Satisfactory for evaluation. Endocervical and/or squamous metaplasticcells (endocervical component)are present.03-03-2022 Miscellaneous Notes* Telephone Encounter - Krystal Holman - 03/03/2022 11:02 AM EST Patient is calling again regarding MRI Result. 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 She experienced double vision and some residual symptoms. She wants to make sure are scan is good. Please call [phone] to discuss results and any follow up. * Telephone Encounter - Nancy Cline [facility] - 02/28/2022 9:33 AM EST CV PHONE Name of caller : Alfonso Relationship to patient : Self If not self Will need patient permission to release results or disclose health information with called documented in fyi. Patient identified by Name and Date of . ( Alfonso Cuauhtemoc Verdugo, 1960). Yes Number to return call [phone] Reason for Call: Results: Results Calling office requesting result of MRI test, completed on 1-3-23. Please call patient back at above. Thank you calling [facility] [place]. You will receive a return call within 48hours ( or 2 business days if close to the weekend). If you feel that this is an urgent issue and needs immediate attention, it is recommended that you contact your primary care provider office or proceed to your nearest Urgent Care Center of Emergency Room ED for evaluation/treatment. documented in this encounterPeoples Hospital01-03-2023 History of Present illness Narrative* Leticia Alston RT(R) - 02/21/2022 9:20 AM EST Radiology Service Progress Note PATIENT NAME: Alfonso Verdugo DATE OF SERVICE: February 21, 2022 TIME: 9:38 AM PATIENT IDENTITY VERIFICATION COMPLETED USING TWO (2) IDENTIFIERS: Name and Date of confirmedby patient verbally. FALL SCREENING: Has the patient [...] 21, 2022 9:38 AM documented in this encounterPeoples Hospital09-20-2022 Miscellaneous Notes* Telephone Encounter - Leidy Olsen RN - 11/08/2021 4:21 PM EDT Called and left VM reiterating [facility] policy regarding imaging scheduled at an outside facility. The completion of a Prior Authorization is the responsibility of chosen provider. Office number provided with any further questions or concerns. Leidy Olsen RN * Telephone Encounter - Abbi Baugh - 11/07/2021 11:08 AM EDT CV PHONE Name of caller : Alfonso Relationship to patient : Self If not self Will need patient permission to release results or disclose health information with called documented in . Patient identified by Name and Date of . ( Alfonso Verdugo, 1960). Yes Number to return call [phone] Reason for Call : Prior Authorization : Prior Authorization Patient calling to seek Insurance Pre-Authorization number from staff providers office. Patient hasphysical hard copy of order and is attempting to schedule MRI[facility] but states both the hospital and the insurance company [employer] request a pre-authorization number. Advised patient this would not be the usual process to seek through the doctor's office and provided patient with additional phone number and suggestion for possible solutions but patient would also prefer a call back as well at [phone]. documented in this encounterPeoples Hospital08-12-2022 NotePap Smear Specimen AdequacyAugust 2021 4:50pmComment.Satisfactory for evaluation. Endocervical and/or squamous metaplasticcells (endocervical component)are present.[facility] A#[id number] Health System Work Phone: Comment on above:Satisfactory for evaluation. Endocervical and/or squamous metaplasticcells (endocervical component)are present.08-09-2021 Instructions* Patient Instructions* Romero Pelletier MD - 08/09/2021 11:39 AM [...] 09, 2021 11:42 AM documented in this encounterPeoples Hospital06-21-2022 History of Present illness Narrative* Romero Pelletier MD - 08/09/2021 10:00 AM EDT Images from the original note were not included. [facility] Initial Visit Consultation is requested by: SELF PCP: Song Figueroa (Dilan) [address] [place] [address] [place] [address] CEREBROVASCULAR HISTORY Alfonso Verdugo is a 61 year old female. History of Event: Patient here for transient diplopia. -A few months ago while driving, she could see the main road ahead of her out of right eye and the side of the road to the left through her left eye. Lasted ~ 3 to 5 minutes. When she would close herleft eye, she would see okay. She would [...] Laid down, and saw an ENT in [place], and was given exercises. After 4 days, [...] have had a 'mini stroke' 03/10/2019 at [facility], after falling and hitting head a few days earlier.Icy February with friend's dog, and dog pulled [...] results found for: HBA1C IMAGING CT head [facility] CT head 03/19/2019 Patient Entered Questionnaires [...] Noncerebrovascular Concern: Yes Details: Traumatic SDH Modified Martin Score: Score: 0 NIH Stroke Scale: LOC: [...] which included preparing to see the patient, [id number] patient care, completing clinical documentation, obtaining and/or reviewing separately obtained history, performing a medically appropriate examination, counseling and educating the patient/family/caregiver and ordering medications, tests, or procedures SIGNATURE Romero Pelletier M.D. Staff, [facility] August 09, 2021 2:06 PM CC SELF Song Figueroa ([facility]) [address] [facility] [place] [address] documented in this encounterPeoples HospitalConsult note Author Do Castro [facility] Note Date/Time August 04, 2024 7:16 am [facility] Medical Records Department [address] [facility] [place] [address] Pre-Anesthesia Evaluation 08/04/24 0710 MR#: [id number] Acct: [id number] Name: ALFONSO VERDUGO PASCALE Rep #:[id number] : 1960 64 From: Do martins CRNA PCP: Dr. Millie Payton MD Status:REG SDC Y Race: C Location: [place] [address] ASA Classification* ASA Classification ASA Classification: 2 Assessment & Plan Anesthesia* Anesthesia Assessment Anesthesia Assessment: Discussed sedation and/or anesthesia options, risks, benefits, and alternatives with patient/parents/legal guardian/POA. Questions invited. The patient/parents/legal guardian/POA seems to understand and agrees to proceedwith anesthesia plan. Reviewed the physical assessment, medical history, allergy history and patient home medications list prior to surgery/procedure/anesthetic and documented any changes. Performed airway and anesthesia risk assessments. Anesthesia Type Anesthesia Type: MAC History Source History Obtained from:: Patient and Chart Anesthesia Focused Assessment* Temperature: 98.0 F Pulse Rate: 78 Blood Pressure: 148/98 Respiratory Rate: 18 Pulse Ox: 98 Oxygen Delivery Method: Room Air Airway Assessment Mouth opens: >3 cm Mallampati Score: I Teeth Condition: Intact Neck Range of motion (ROM): Full ROM Labs Anesthesia Preop lab: CBC WBC 5.2 K/mm3 (4.4-11.0) 12/19/22 09:58 12/19/22 RBC 5.04 M/mm3 (4.2-5.4) 12/19/22 09:58 12/19/22 Hgb 13.8 g/dL (12.0-15.0) 12/19/22 09:58 12/19/22 Hct 43.9 % (37-47) 12/19/22 09:58 12/19/22 Plt Count 318 K/mm3 (150-450) 12/19/22 09:58 12/19/22 CHEMISTRY Potassium 3.9 mmol/L (3.5-5.1) 12/19/22 09:58 12/19/22 Sodium 138 mmol/L (136-145) 12/19/22 09:58 12/19/22 BUN 13 mg/dL (7-18) 12/19/22 09:58 12/19/22 Creatinine 0.74 mg/dL (0.55-1.02) 12/19/22 09:58 12/19/22 Glucose 94 mg/dL (74-106) 12/19/22 09:58 12/19/22 TSH 2.34 uIU/mL (0.358-3.74) 03/01/23 10:20 COAG Pre-Assessment Diagnosis/Proposed Procedure Planned Operative Procedure(s): COLONOSCOPY-OA Anesthesia History 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 When Was Last Pacemaker Check QUESTION #4 FULL TEXT: You/Your Family Experience fever (hyperthermia) with Anesthesia Last Oral Intake Last Oral intake: Last Oral Intake NPO since 20:30 08/04/24 06:48 Meds taken in AM with sips of Yes 08/04/24 06:48 water? Meds patient instructed to LEVOTHYROXINE 08/04/24 06:48 take am of surgery PONV PONV - emu farmer: PONV - emu farmer Female Yes 07/31/24 10:35 HX of Motion Sickness No 07/31/24 10:35 HX of N/V After Surgery No 07/31/24 10:35 Non-Smoker Yes 07/31/24 10:35 Duration of Surgery greater No 07/31/24 10:35 than 60 minutes Number of Risk Factors 2 07/31/24 10:35 PONV Score Moderate Risk 07/31/24 10:35 Height & Weight Height & Weight: Anesthesia: Height & Weight Height 5 ft 6 in 08/04/24 06:48 Weight: 94 kg 08/04/24 06:48 Body Mass Index (BMI) 33.4 08/04/24 06:48 Respiratory Assessment Respiratory Assessment - emu farmer: Respiratory Tract Infection Hx - emu farmer Hx Respiratory Tract Infection No 07/31/24 10:35 STOP Sleep Apnea STOP Sleep Apnea - emu farmer: STOP Sleep Apnea - emu farmer Hx Hypertension No 07/31/24 10:35 Hx Sleep [...] Tobacco Use History Tobacco Use History - emu farmer: Tobacco Use History - emu farmer Tobacco Use Smoking Status Never smoker 07/31/24 10:35 Hx Tobacco Use No 07/31/24 10:35 Years Smoking Packs Smoked per Day Smoking Cessation Date was within the last 15 years Hx Smoking Cessation Date Hx Smoking Cessation Counseling Hematologic Medial History Hematologic Hx - emu farmer: Hematologic Medical Hx - cook fruit Hx of Blood Transfusion No 07/31/24 10:35 Hx of Transfusion in last 3 No 07/31/24 10:35 Months Date of Last Transfusion (if within last 3 months) Ever experience any problems No 07/31/24 10:35 with transfusion(s)? Specify any problems Hx of Preganancy in last 3 No 07/31/24 10:35 Months Nurse Filling Out Transfusion VCHRISTIN 07/31/24 10:35 & Questions: Date: 07/31/24 07/31/24 10:35 Time: 10:37 07/31/24 10:35 Patient unable to answer at this time (ie. confused, unrespo /Reproduction History /Reproductive History - emu farmer: /Reproductive Hx- emu farmer Hx Now No 07/31/24 10:35 Gestational Age (in weeks): EDC: Hx Hx Para Hx Section SAB No 07/31/24 10:35 Active Medications Active Medications: Current Medications Generic Name Dose Route Start Last Admin Trade Name Freq PRN Reason Stop Dose Admin Lactated Ringer's 1,000 mls @ 30 mls/hr 08/04/24 06:45 08/04/24 06:52 IV 30 mls/hr .[id number] SUKHDEV Administration PFSH Medical History Wears glasses Wears contact lenses History of steroid therapy Thyroid disease Injury of head and neck Non-smoker History of edema History of echocardiogram Depression with anxiety Goiter Home Medications ?Medication ?Instructions ?Recorded ?Last Taken ?Type venlafaxine 75 mg capsule,extended 75 mg PO DAILY #30 caps 05/30/24 08/03/24 Rx release 24 hr cholecalciferol (vitamin D3) 50 50 mcg PO DAILY 08/03/24 History mcg (2,000 unit) capsule levothyroxine 75 mcg tablet 75 mcg PO DAILY 07/31/24 0 08/04/24 History Allergy/AdvReac Type Severity Reaction Status Date / Time Penicillins AdvReac Rash Verified 07/31/24 10:26 Sulfa (Sulfonamide AdvReac Rash Verified 07/31/24 10:26 Antibiotics) Family History Grandmother Breast cancer Grandfather Diabetes Surgical History Hx of colonoscopy History of endometrial ablation S/P dilation and curettage S/P gastric surgery Status post breast reduction Social History Smoking Status: Never smoker alcohol intake: current details: occasionally substance use type: does not use caffeine: Yes what type of physical activity do you participate in: walking frequency: 3-4 times per week seatbelt use: always do you feel safe at home: Yes additional social history: Remarried to Rich! 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 Review of Systems (Anesthesia) ROS Narrative System reviewed and no additional complaints, except as documented. 08/04/24 0716 <Electronically signed by Do jimenez CRNA> Date _ Do Castro CRNA Cosigner Signature: Date CC: ~ Signed [facility] Work Phone: Evaluation note* Diagnosis Transient diplopia- Primary Diplopia Transient cerebral ischemia, unspecified type [facility] Diagnosis Onset Date Resolution Status Depression with anxiety acut e Fecal incontinence acute HPV test positive acute Obesity acute Encounter for routine gynecological examination noneactive [facility] Work Phone: Evaluation note* Diagnosis Onset Date Resolution Status Abnormal Pap smear of cervix acute HPV test positive acute Encounter for routine gynecological examination noneactive [facility] Work Phone: Evaluation note* Diagnosis Onset Date Resolution Status Abnormal Pap smear of cervix acute HPV test positive acute Encounter for routine gynecological examination noneactive Abnormal Pap smear of cervix acute HPV test positive acute [facility] Work Phone: Evaluation note* Diagnosis Transient diplopia Diplopia Transient cerebral ischemia, unspecified type documented in this encounter [facility] note* Diagnosis Abnormal ECG- Primary Nonspecific abnormal electrocardiogram (ECG) (EKG) Encounter for screening for cardiovascular disorders Screening for other and unspecified cardiovascular conditions documented in this encounter [facility] note* Diagnosis Abnormal ECG- Primary Nonspecific abnormal electrocardiogram (ECG) (EKG) Encounter for screening for cardiovascular disorders Screening for other and unspecified cardiovascular conditions Class 2 obesity due to excess calories without serious comorbidity with body mass index (BMI) of 35.0 to 35.9 in adult Mixed hyperlipidemia documented in this encounter [facility] note* Diagnosis Onset Date Resolution Status Abnormal Pap smear of cervix acute HPV test positive acute [facility] Work Phone: History and physical note Author Maryellen Lopez [facility] Note Date/Time August 04, 2024 7:26 am [facility] System Medical Records Department [address] [place] [id number] History & Physical Exam 08/04/24 0720 MR#: [id number] Acct: [id number] Name: ALFONSO VERDUGO PASCALE Rep #:[id number] : 1960 64 From: Maryellen Lopez MD PCP: Dr. Millie Payton MD Status:[facility] Location: [place] [address] HPI - General General Date of Service: 08/04/24 HPI Narrative ALFONSO VERDUGO, is a 64 F who presents for screening colonoscopy due history of colon polyps?tubular adenoma. Patient last colonoscopy was 5 years ago with , about 4 years ago patient's brother was diagnosed with colon cancer at age 55.. Patient has bowel movements daily denies any blood. Patient denies any chronic abdominal pain/nausea/vomiting/reflux. [facility] Medical History Wears glasses Wears contact lenses History of steroid therapy Thyroid disease Injury of head and neck Non-smoker History of edema History of echocardiogram Depression with anxiety Goiter Home Medications ?Medication ?Instructions ?Recorded ?Last Taken ?Type venlafaxine 75 mg capsule,extended 75 mg PO DAILY #30 caps 05/30/24 08/03/24 Rx release 24 hr cholecalciferol (vitamin D3) 50 50 mcg PO DAILY 08/03/24 History mcg (2,000 unit) capsule levothyroxine 75 mcg tablet 75 mcg PO DAILY 07/31/24 0 08/04/24 History Allergy/AdvReac Type Severity Reaction Status Date / Time Penicillins AdvReac Rash Verified 07/31/24 10:26 Sulfa (Sulfonamide AdvReac Rash Verified 07/31/24 10:26 Antibiotics) Family History Grandmother Breast cancer Grandfather Diabetes Surgical History Hx of colonoscopy History of endometrial ablation S/P dilation and curettage S/P gastric surgery Status post breast reduction Social History Smoking Status: Never smoker alcohol intake: current details: occasionally substance use type: does not use caffeine: Yes what type of physical activity do you participate in: walking frequency: 3-4 times per week seatbelt use: always do you feel safe at home: Yes additional social history: Remarried to Rich! 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 Past Medical/Surgical History Planned Operation Planned Operative Procedure(s): COLONOSCOPY-OA S.O.S: No Previous Hospitalizations/Surgeries HX Hospitalizations: No HX of Surgeries: bariatric sleeve surgery bilat breast reduction D&C x2 uterine ablation Any Problems With Anesthesia: No You/Your Family Experience Fever (Hyperthermia) With Anes: No Cholinesterase deficiency: No Cardiovascular Hx Chest Pain within Last 2 months: No Hx of Irregular Heartbeat and/or Afib: No Hx Heart Attack: No Hx Congestive Heart Failure: No Hx Rheumatic Fever: No Hx Hypertension: No Hx Internal Defibrillator: No Hx Pacemaker: No Hx Cardiac Catheterization: No Hx Cardiac Surgery/Stents/Etc.: No Hx Stress Test: No Hx Pain in Legs when Walking/Leg Cramps: No Respiratory Chronic Cough: No HX of Shortness of Breath: No Hoarseness: No Hx Chronic Obstructive Pulmonary Disease (COPD): No Hx Asthma: No Hx Emphysema: No Hx Sleep Apnea: No CPAP: No BIPAP: No Hx Respiratory Tract Infection/Cold (presently): No Do You Snore Loudly (louder than talking or can be heard): No Do You Often Feel Tired/ Fatigued/ Sleepy Dring Daytime?: No Has Anyone Observed You Stop Breathing During Sleep?: No Result (for STOP score): Negative Hx Smoking: No Smoking Status: Never smoker Gastrointestinal Hx Gastrointestinal Disorders: No (hx bariatric surgery) Hx Gastrointestinal Bleed: No Hx Ulcer: No Hx Hiatal Hernia: Yes (repaired with bariatric surgery) Difficulty Chewing/Swallowing: No Special diet followed at home: No (smaller meals) Hx Unplanned Weight Loss of 20#: No HX Unplanned Weight Gain of 20#: No Neurological Hx Seizures: No HX Syncope/Blackout Spells/Unconsciousness: No Hx Transient Ischemic Attacks (TIA): No Hx Multiple Sclerosis: No Hx Parkinson's Disease: No Hx Head/Neck Injury: No Hx Headaches: No Hx Back Injury/Pain: No Recent Onset of Speech Difficulty: No Restless Legs: No Does patient have nerve stimulator: No Blood Disorder Hx Leukemia: No Bleeding Tendencies: No Hx Deep Vein Thrombosis: No Hx High Cholesterol: No Blood Transmitted Disease: No Hx Hepatitis: No Hx Cirrhosis: No Hx Anemia: No Hx Blood Disorders: No Reproduction : No Is Patient Lactating: No Hx Hysterectomy: No Hx Tubal Ligation: No Are You Post Menopause: Yes Genitourinary Hx Renal Disease: No Musculoskeletal Hx Arthritis: No Hx Rheumatoid Arthritis: No Hx Gout: No Recent Onset of an Orthopedic Problem: No Endocrine Hx Diabetes: No Thyroid Disease: Yes (ON MEDS) Hx Steroid Therapy: No Psycho/Social Hx Substance Use: No Hx Alcohol Use: No Hx Anxiety: Yes (on med) Hx Depression: Yes (on med) Mental Illness: No Hx Dementia: No Miscellaneous Hx Cancer: Yes (SKIN CA) Recent Exposure to Contagious Disease: No Hx of C-Diff: No Any Loose Teeth: No Allergies Penicillins Adverse Reaction (Verified 07/31/24 10:26) Rash Sulfa (Sulfonamide Antibiotics) Adverse Reaction (Verified 07/31/24 10:26) Rash Discharge Is Pt Admitted From a Fpc, or a Intermediate: No After D/C, Where Do you Plan to Go: Return Home From the [facility] History Number of Risk Factors: 4 Vital Signs Vital Signs Vital Signs: 08/04/24 06:48 08/04/24 06:48 08/04/24 07:15 Temperature 98.0 F 98.0 F Temperature Source Temporal Pulse Rate 78 78 Respiratory Rate 18 18 Respiratory Pattern Normal Blood Pressure 148/98 H 148/98 H Blood Pressure Mean 114 Blood Pressure Source Monitor Blood Pressure Position Semi-Fowlers Blood Pressure Location Right Arm Pulse Ox 98 98 Oxygen Delivery Method Room Air Room Air Weight Weight: 207 lb 3.752 oz Body Mass Index (BMI) 33.4 Physical Exam Const alert, oriented x3 and no apparent distress HEENT normocephalic and head/scalp atraumatic Resp normal respiratory effort Cardio regular rate GI soft to palpation and non-tender; Negative for non-distended Palpation: Negative for guarding Extremity no clubbing, cyanosis or edema Skin no rashes or lesions noted Neuro CN's II-XII intact bilaterally Psych mental status grossly normal Assessment & Plan Assessment/Plan (1) Family history of colon cancer: (2) Hx of colonic polyps: Surgery Risks - Colonoscopy I discussed with the patient the risks of the procedure: Yes Risks Include but are not Limited To: Risks include but are not limited to: Bleeding, perforation requiring further surgery, inability to complete colonoscopy requiring barium enema. 08/04/24 0726 <Electronically signed by Maryellen Lopez MD> Cosigner Signature (if applicable): CC: Dr. Millie Payton MD; Dr. Maryellen Lopez MD~ Signed [facility] Work Phone: Hospital Discharge instructions Additional Instructions Call Dr. Roberts office when you are discharged here for your appointment tomorrow. Return with worsening symptoms or concerns.[facility] Work Phone: Reason for referral (narrative)No reason for referral [facility] Work Phone: Summary Purpose Family History Relationship Condition Age at Onset Recorded Date/T bren grandmother Malignant neoplasm of breast Unknown grandfather Diabetes mellitus Unknown Advance Directives Advance Directive Response Recorded Date/ Time Advance Directives No January 5:11pm Living Will No September 17, 2019 12:46pm Power of Events Traffic Controller No September 16 0 12:46pm Advance Directive Response Recorded Date/ Time Advance Directives No January 4:11pm Living Will No September 17, 2019 11:46am Power of Events Traffic Controller No September 16 0 11:46am Advance Directive Response Recorded Date/ Time Advance Directives No March 2:30pm Do you have a Healthcare Power of Events Traffic Controller? No July 31, 2024 10:35am Advance Directive Response Recorded Date/ Time Do you have a Healthcare Power of Events Traffic Controller? No July 31, 2024 10:35am Do you have a Healthcare Power of Events Traffic Controller? No August 13, 2024 12:45pm Advance Directives No March 2:30pm Reason for Referral Specialty Diagnoses / Procedures Referred By Jeremiah jones Referred To Contact MR IMAGING Diagnoses Transient diplopia Transient cerebral ischemia, unspecified type Procedures MRA BRAIN WO IVCON MRA, HEAD W/O CONTRAST Romero Pelletier MD [address] [place] [address] Mr Imaging Referral ID Status Reason Start Date Expiration Date Visits Requested Visits Authorized [id number] Pending Review Auto-Generat ed Referral 08/09/2021 09/08/2022 1 1 Specialty Diagnoses / Procedures Referred By Melloac t Referred To Contact MR IMAGING Diagnoses Transient diplopia Transient cerebral ischemia, unspecified type Procedures MRI BRAIN WO IVCON MRI BRAIN BRAIN STEM W/O CONTRAST MATERIAL Romero Pelletier MD [address] [facility] [place] [address] Mr Imaging Referral ID Status Reason Start Date Expiration Date Visits Requested Visits Authorized [id number] Pending Review Auto-Generat ed Referral 08/09/2021 09/08/2022 1 1 Specialty Diagnoses / Procedures Referred By Contac t Referred To Contact MR IMAGING Diagnoses Transient diplopia Transient cerebral ischemia, unspecified type Procedures MRI BRAIN WO IVCON MRI BRAIN BRAIN STEM W/O CONTRAST MATERIAL Romero Pelletier MD [address] [place] [phone] Mr Imaging [place] [address] Referral ID Status Reason Start Date Expiration Date V isits Requested Visits Authorized [id number] Closed Auto-Generate d Referral 11/07/2021 05/06/2022 1 1 Specialty Diagnoses / Procedures Referred By Jeremiah jones Referred To Contact Procedures CARDIOVASCULAR MEDICINE OP FOLLOW UP APPT ORDER Vinh Kapadia MD [address] [place] [phone] Referral ID Status Reason Start Date Expiration Date Visits Requested Visits Authorized [id number] Ref Not Required PCP Requested Referral 12/26/2022 12/26/2023 1 1 Specialty Diagnoses / Procedures Referred By Jeremiah jones [facility] Diagnoses Abnormal ECG Encounter for screening for cardiovascular disorders Procedures ECHO ECHO TTHRC R-T 2D W/WOM-MODE COMPL SPEC&COLR D Vinh Kapadia MD [address] [place] [phone] [place] [address] Referral ID Status Reason Start Date Expiration Date Visits Requested Visits Authorized [id number] Pending Review Auto-Generat ed Referral 12/26/2022 12/26/2023 1 1 Chief Complaint and Reason for Visit Chief Complaint SCREENING 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) Reason for Visit Depression with anxi ety Fecal incontinence HPV test positive Obesity Encounter for routine gynecological examination Chief Complaint SCREENING 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) ABN MAMM Reason for Visit Depression with anxi ety Fecal incontinence HPV test positive Obesity Encounter for routine gynecological examination Chief Complaint 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) Reason for Visit Abnormal Pap smear o f cervix HPV test positive Encounter for routine gynecological examination Chief Complaint 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) SCREENING Colposcopy Body mass index [BMI] 37.0-37.9, adult Reason for Visit Abnormal Pap smear o f cervix HPV test positive Encounter for routine gynecological examination Abnormal Pap smear of cervix HPV test positive Chief Complaint SCREENING Colposcopy Body mass index [BMI] 37.0-37.9, adult PREOP ABNORMAL EKG Reason for Visit Abnormal Pap smear o f cervix HPV test positive Chief Complaint Admit Date 1 M weigh in & med check April 08, 2024 9:27am 1 M med check April 30, 2024 8:3 2am 3 M FU May 30, 2024 11: 27am Reason for Visit Admit Date Depression with anxiety April 30, 2024 8:32am Obesity (BMI 30.0-34.9) April 30, 2024 8:32am Other obesity April 30, 2024 8:3 2am S/P gastric surgery April 30, 2024 8:3 2am Depression with anxiety May 30, 2024 11:27am Goiter May 30, 2024 11: 27am Obesity (BMI 30.0-34.9) May 30, 2024 11:27am Other obesity May 30, 2024 11: 27am S/P gastric surgery May 30, 2024 11: 27am Family history of colon cancer July 6:25am Hx of colonic polyps August 04, 2024 6:2 5am Chief Complaint Admit Date 1 M med check April 30, 2024 8:3 2am 3 M FU May 30, 2024 11: 27am rlq pain August 13, 2024 10:4 1am Additional Source Comments INFORMATION SOURCE (unrecogn ized section and content) DATE CREATED AUTHOR 10/14/2020 [facility] DATE CREATED AUTHOR AUTHOR'S ORGANIZ ATION 12/30/2023 [facility] DATE CREATED AUTHOR AUTHOR'S ORGANIZ ATION 01/23/2024 [facility] DATE CREATED AUTHOR AUTHOR'S ORGANIZ ATION 07/18/[address] [facility] DATE CREATED AUTHOR AUTHOR'S ORGANIZ ATION 08/12/2024 [facility] Source Comments (unrecognize d section and content) In the event this informatio n is protected by the Federal Confidentiality of Alcohol and Drug Abuse Patient Records regulations: The Federal rules restrict any use of the information to criminally investigate or prosecute any alcohol or drug abuse patient.[facility] the event this information is protected by the Federal Confidentiality of Alcohol and Drug Abuse Patient Records regulations: The Federal rules restrict any use of the information to criminally investigate or prosecute any alcohol or drug abuse patient.[facility] the event this information is protected by the Federal Confidentiality of Alcohol and Drug Abuse Patient Records regulations: The Federal rules restrict any use of the information to criminally investigate or prosecute any alcohol or drug abuse patient.[facility] the event this information is protected by the Federal Confidentiality of Alcohol and Drug Abuse Patient Records regulations: The Federal rules restrict any use of the information to criminally investigate or prosecute any alcohol or drug abuse patient.[facility] Hospital[facility] the event this information is protected by the Federal Confidentiality of Alcohol and Drug Abuse Patient Records regulations: The Federal rules restrict any use of the information to criminally investigate or prosecute any alcohol or drug abuse patient.[facility] the event this information is protected by the Federal Confidentiality of Alcohol and Drug Abuse Patient Records regulations: The Federal rules restrict any use of the information to criminally investigate or prosecute any alcohol or drug abuse patient.[facility] the event this information is protected by the Federal Confidentiality of Alcohol and Drug Abuse Patient Records regulations: The Federal rules restrict any use of the information to criminally investigate or prosecute any alcohol or drug abuse patient.[facility] the event this information is protected by the Federal Confidentiality of Alcohol and Drug Abuse Patient Records regulations: The Federal rules restrict any use of the information to criminally investigate or prosecute any alcohol or drug abuse patient.[facility] Reason for Visit (unrecogniz ed section and content) Reason Comments New Patient Evaluation Specialty Diagnoses / Procedures Referred By Contact Referred To Contact Neurology / CEREBROVASCULAR Diagnoses Brain bleed (HCC) 9fell hit brain bleed now eposides where left eye wanders Procedures OFFICE/OUTPATIENT NEW MODERATE MDM 45-59 MINUTES NEW NI MEDICAL Self Romero Pelletier MD [address] [place] [address] Referral ID Status Reason Start Date Expiration Date V isits Requested Visits Authorized [id number] Authorized 07/22/2021 07/22/2022 4 4 Reason Comments Insurance Authorization / Imaging Order Reason Comments Results MRI Specialty Diagnoses / Procedures Referred By Contac t Referred To Contact MR IMAGING Diagnoses Transient diplopia Transient cerebral ischemia, unspecified type Procedures MRI BRAIN WO IVCON MRI BRAIN BRAIN STEM W/O CONTRAST MATERIAL Romero Pelletier MD [address] [place] [address] [place] [address] Referral ID Status Reason Start Date Expiration Date V isits Requested Visits Authorized [id number] Closed Auto-Generate d Referral 11/07/2021 05/06/2022 1 1 Reason Comments Event ZIO PATCH Reason Comments Release Of Medical Records Reason Comments Orders Care Teams (unrecognized sec tion and content) Cage Shift Manager Relationship Specialty Start Date End Date Millie Payton MD [address] [facility] [address] [place] [phone] PCP - General Internal Medicine 08/09/21 Cage Shift Manager Relationship Specialty Start Date End Date Millie Payton MD [address] [place] [address] PCP - General Internal Medicine 08/09/21 Team [...] MD Attending Provider, Referr ing Provider Active Cage Shift Manager Relationship Specialty Start Date End Date Millie Payton MD [address] [place] [phone] PCP - General Internal Medicine 08/09/21 Cage Shift Manager Relationship Specialty Start Date End Date Millie Payton MD [address] [facility] [address] [place] [address] PCP - General Internal Medicine 08/09/21 Vinh Kapadia MD [address] [place], [place] [phone] Primary Staff Physician Cardiology 12/26/22 Cage Shift Manager Relationship Specialty Start Date End Date Millie Payton MD [address] [facility] [address] [place] [phone] PCP - General Internal Medicine 08/09/21 Vinh Kapadia MD [address] [place], [place] [phone] Primary Staff Physician Cardiology 12/26/22 Cage Shift Manager Relationship Specialty Start Date End Date Millie Payton MD [address] [facility] [address] [place] [phone] PCP - General Internal Medicine 08/09/21 Vinh Kapadia MD [address] [place], [place] [phone] Primary Staff Physician Cardiology 12/26/22 Team Status: [...] Provider Active SHAHANA QUISPE Attending Provider Active Team Status: Active Member Role Status Dates Dr. Millie Payton MD Primary Care Provider Active Team Status: Inactive Member Role Status Dates Dr. Millie Payton MD Primary Care Provider Active Start: April 08, 2024 End: April 08, 2024 Dr. Millie Payton MD Referring Provider Active Start: April 08, 2024 End: April 08, 2024 ARSALAN Morton Attending Provider Active Start: April 08, 2024 End: April 08, 2024 Team Status: Inactive Member Role Status Dates Dr. Millie Payton MD Primary Care Provider Active Start: April 30, 2024 End: April 30, 2024 Dr. Millie Payton MD Referring Provider Active Start: April 30, 2024 End: April 30, 2024 Dr. Rose Marie Brush MD Attending Provider Active Start: April 30, 2024 End: April 30, 2024 Team Status: Inactive Member Role Status Dates Dr. Millie Payton MD Primary Care Provider Active Start: May 30, 2024 End: May 30, 2024 Dr. Millie Payton MD Referring Provider Active Start: May 30, 2024 End: May 30, 2024 Dr. Rose Marie Brush MD Attending Provider Active Start: May 30, 2024 End: May 30, 2024 Team Status: Inactive Member Role Status Dates Dr. Millie Payton MD Primary Care Provider Active Start: August 04, 2024 End: August 04, 2024 Dr. Millie Payton MD Referring Provider Active Start: August 04, 2024 End: August 04, 2024 Dr. Maryellen Lopez MD Attending Provider Active Start: August 04, 2024 End: August 04, 2024 Team Status: Active Member Role Status Dates Dr. Millie Payton MD Primary Care Provider Active Start: August 04, 2024 Dr. Millie Payton MD Referring Provider Active Start: August 04, 2024 Dr. Maryellen Lopez MD Attending Provider Active Start: August 04, 2024 Dr. Maryellen Lopez MD Other Provider Active S tart: August 04, 2024 Team Status: Inactive Member Role Status Dates Dr. Mich Wheatley DO Emergency Provider Active Start: August 13, 2024 End: August 13, 2024 Dr. Millie Payton MD Primary Care Provider Active Start: August 13, 2024 End: August 13, 2024 Goals (unrecognized section and content) Goals may [...] BE BASED ON THE PRIMARY CLINICAL RECORDS. [facility]. provides no warranty or guarantee of the accuracy or completeness of information in this document.
== END 2024-08-13 16:26 | disposition home or self-care (01) ==
PROVIDERS: Emergency Provider Emergency Medicine; PCP Internal Medicine; Visit Provider Emergency Medicine
DX: R10.9 Unspecified abdominal pain (principal); K80.20 Calculus of gallbladder without cholecystitis without obstruction; F41.8 Other specified anxiety disorders; Z79.899 Other long term (current) drug therapy
CPT/HCPCS: 76705; 80053; 81001; 83690; 85025; 96360; 99282; A4216

== ENCOUNTER 2024-08-20 21:14 | Emergency (ER) | payer OTHER, SELFPAY ==
[2024-08-20 21:14] VITALS: BP 154/79; PULSE 80; RESP 18; TEMP 36.4; O2SAT 97
--- NOTE | 2024-08-20 21:33 | CT_ITS ---
PROCEDURE: ABDOMEN/PELVIS W IV CONT ONLY 08/20/2024 REASON FOR EXAM: RIGHT LOWER QUADRANT PAIN, CREATININE 0.68 AUGUST 13 TECHNIQUE: ABDOMEN/PELVIS W IV CONT ONLY Coronal and Sagittal reconstruction series were provided. CONTRAST: Isovue 300 VOLUME: 97 mL One or more dose reduction techniques were used (e.g., Automated exposure control, adjustment of the mA and/or kV according to patient size, use of iterative reconstruction technique. RADIATION DOSE SUMMARY: CTDlvol: 30 mGy DLP: 961 mGycm COMPARISON: Ultrasound 08/13/2024 FINDINGS: Clear lung bases. Normal heart size. Small hiatal hernia. Noncalcified gallstone. Unremarkable liver, pancreas,, adrenal glands,. No hydronephrosis or ureteral stone. Normal uterus and ovaries. No retroperitoneal or pelvic adenopathy. Mesenteric panniculitis. No free air. Status post gastric sleeve. Multiple proximal jejunal loops show wall thickening without pneumatosis. Nondistended bowel. Normal appendix. No acute large bowel findings. Lumbar spine scoliosis and degeneration. CT/Abdomen/Pelvis W IV Cont ONLY IMPRESSION: Jejunal enteritis such as secondary to infection. Advise correlation. Reading Location: [place] [address]
--- NOTE | 2024-08-20 21:33 | CT_ITS ---
PROCEDURE: ABDOMEN/PELVIS W IV CONT ONLY 08/20/2024 REASON FOR EXAM: RIGHT LOWER QUADRANT PAIN, CREATININE 0.68 AUGUST 13 TECHNIQUE: ABDOMEN/PELVIS W IV CONT ONLY Coronal and Sagittal reconstruction series were provided. CONTRAST: Isovue 300 VOLUME: 97 mL One or more dose reduction techniques were used (e.g., Automated exposure control, adjustment of the mA and/or kV according to patient size, use of iterative reconstruction technique. RADIATION DOSE SUMMARY: CTDlvol: 30 mGy DLP: 961 mGycm COMPARISON: Ultrasound 08/13/2024 FINDINGS: Clear lung bases. Normal heart size. Small hiatal hernia. Noncalcified gallstone. Unremarkable liver, pancreas,, adrenal glands,. No hydronephrosis or ureteral stone. Normal uterus and ovaries. No retroperitoneal or pelvic adenopathy. Mesenteric panniculitis. No free air. Status post gastric sleeve. Multiple proximal jejunal loops show wall thickening without pneumatosis. Nondistended bowel. Normal appendix. No acute large bowel findings. Lumbar spine scoliosis and degeneration. CT/Abdomen/Pelvis W IV Cont ONLY IMPRESSION: Jejunal enteritis such as secondary to infection. Advise correlation. Reading Location: [place] [id number]
[2024-08-20 21:58] LABS: Hematocrit 40.9 % (37-47); Hemoglobin 13.0 g/dL (12.0-15.0); Immature Granulocytes Count 0.020 X10^3/uL (0.0-0.0); Mean Corp Hgb Conc 31.8 g/dL (32-36); Mean Corpuscular Volume 87.4 fL (81-99); Mean Platelet Vol. 10.2 fl (6.2-12.0); NRBC Flagged by Analyzer 0 % (0-5); Platelet Count 330 K/mm3 (150-450); RBC Distribution Width CV 15.0 % (11.6-14.6); RBC Distribution Width SD 48.1 fl (35.1-43.9); Red Blood Count 4.68 M/mm3 (4.2-5.4); White Blood Count 8.4 K/mm3 (4.4-11.0)
--- NOTE | 2024-08-20 22:09 | EDS_ITS ---
HPI HPI - GI History of Present Illness Chief Complaint: Abd Pain [facility] Medical History (Updated 08/20/24 @ 23:[address] Diego Mcdonald MD) Right sided abdominal pain Wears glasses Wears contact lenses History of steroid therapy Thyroid disease Injury of head and neck Non-smoker History of edema History of echocardiogram Depression with anxiety Goiter Home Medications ?Medication ?Instructions ?Recorded ?Last Taken ?Type venlafaxine 75 mg capsule,extended 75 mg PO DAILY #30 caps 05/30/24 08/03/24 Rx release 24 hr cholecalciferol (vitamin D3) 50 50 mcg PO DAILY 08/03/24 History mcg (2,000 unit) capsule levothyroxine 75 mcg tablet 75 mcg PO DAILY 07/31/24 0 08/04/24 History ciprofloxacin HCl 500 mg tablet 500 mg PO BID #14 TABL ETS 08/20/24 Unknown Rx metronidazole 500 mg tablet 500 mg PO Q8H #21 tabs 04/15 Unknown Rx phentermine 15 mg-topiramate ER 92 1 cap PO Q24H 08/20 Unknown History mg capsule,ext.[id number] multphas (Qsymia) Allergy/AdvReac Type Severity Reaction Status Date / Time Penicillins AdvReac Rash Verified 08/20/24 21:14 Sulfa (Sulfonamide AdvReac Rash Verified 08/20/24 21:14 Antibiotics) Family History Grandmother Breast cancer Grandfather Diabetes Surgical History Hx of colonoscopy History of endometrial ablation S/P dilation and curettage S/P gastric surgery Status post breast reduction Social History Smoking Status: Never smoker alcohol intake: current details: occasionally substance use type: does not use caffeine: Yes what type of physical activity do you participate in: walking frequency: 3-4 times per week seatbelt use: always do you feel safe at home: Yes additional social history: Remarried to Rich! 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 [employer] Physical Exam Const Vital Signs: 08/20/24 21:14 Temperature 97.5 F L Temperature Source Temporal Pulse Rate 80 Respiratory Rate 18 Blood Pressure 154/79 H Blood Pressure Mean 104 Pulse Ox 97 Oxygen Delivery Method Room Air [facility] Lab Data Attestation: I reviewed the patient's lab results. Lab results narrative: CBC is unremarkable. Basic metabolic panel is unremarkable. Labs: Laboratory Results - last 24 hr 08/20/24 21:50 WBC 8.4 RBC 4.68 Hgb 13.0 Hct 40.9 MCV 87.4 MCH 27.8 MCHC 31.8 L RDW Std Deviation 48.1 H RDW Coeff of Annel 15.0 H Plt Count 330 MPV 10.2 Immature Gran % (Auto) 0.200 Neut % (Auto) 66.4 Lymph % (Auto) 24.2 Carroll % (Auto) 7.2 Eos % (Auto) 1.4 Baso % (Auto) 0.6 Absolute Neuts (auto) 5.6 Absolute Lymphs (auto) 2.03 Nucleated RBC % 0 Sodium 140 Potassium 4.1 Chloride 106 Carbon Dioxide 23.6 Anion Gap 10 BUN 21 H Creatinine 0.74 Est GFR (MDRD) Non-Af 92 BUN/Creatinine Ratio 29.0 H Glucose 100 H Calcium 8.9 Radiography Diagnostic Testing: Clinical Impression(s) from Imaging Studies Abdomen/Pelvis CT 08/20/24 21:33 IMPRESSION: Jejunal enteritis such as secondary to infection. Advise correlation. Reading Location: [place] [address] CT of the abdomen pelvis with IV contrast was reviewed by me at 2209. The liver and spleen appear normal. Kidneys appear normal. The appendix appears normal. There appears to be sludge in the gallbladder. There is no thickening of the gallbladder wall. Awaiting formal read by radiologist. Radiologist interpreted as jejunal enteritis. Since this been going on for some time and she has no diarrhea we will treat with ciprofloxacin and metronidazole. Will have weatherization and housing inspector schedule appointment to see Dr. Bess after the . Patient was instructed no alcoholic beverages. 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, Goiter, Obesity (BMI 30.0- 34.9), Cholelithiasis, Right sided abdominal pain, Elevated blood-pressure reading without diagnosis of hypertension Instructions: Crohns Disease Lifestyle Changes, ED Hypertension, To Be Confirmed Prescriptions: New metronidazole 500 mg tablet 500 mg PO Q8H Qty: 21 0RF ciprofloxacin HCl 500 mg tablet 500 mg PO BID Qty: 14 0RF No Action venlafaxine 75 mg capsule,extended release 24hr 75 mg PO DAILY Qty: 30 12RF levothyroxine 75 mcg tablet 75 mcg PO DAILY cholecalciferol (vitamin D3) 50 mcg (2,000 unit) capsule 50 mcg PO DAILY phentermine-topiramate [Qsymia] 15-92 mg capsule, ER multiphase 24 hr 1 cap PO Q24H Primary Care Provider: Mirian Payton Referrals: Mirian Payton MD [Primary Care Provider] - 1-2 Weeks Asaf Bess DO [Med Staff - Active Staff] - Keep Bernard appointment Activity Restrictions/Additional Instructions: 1. No alcoholic beverages 24 hours before you start the metronidazole or 48 hours after your last dose 2. Take antibiotics until gone 3. You were scheduled with an appointment to see Dr. Bess after August 30. 4. Your blood pressure is elevated. You should have this rechecked by your physician. 5. You were given home-going structures for Crohn's disease since that matches closest to what was found on your CAT scan. This does not mean you have Crohn's disease. Print Language: Salvadorean Disposition Disposition: Home, Self Care
--- NOTE | 2024-08-20 22:09 | EDS_ITS ---
HPI HPI - GI History of Present Illness Chief Complaint: Abd [facility] Medical History (Updated 08/20/24 @ 23:[address] Diego Mcdonald MD) Right sided abdominal pain Wears glasses Wears contact lenses History of steroid therapy Thyroid disease Injury of head and neck Non-smoker History of edema History of echocardiogram Depression with anxiety Goiter Home Medications ?Medication ?Instructions ?Recorded ?Last Taken ?Type venlafaxine 75 mg capsule,extended 75 mg PO DAILY #30 caps 05/30/24 08/03/24 Rx release 24 hr cholecalciferol (vitamin D3) 50 50 mcg PO DAILY 08/03/24 History mcg (2,000 unit) capsule levothyroxine 75 mcg tablet 75 mcg PO DAILY 07/31/24 0 08/04/24 History ciprofloxacin HCl 500 mg tablet 500 mg PO BID #14 TABL ETS 08/20/24 Unknown Rx metronidazole 500 mg tablet 500 mg PO Q8H #21 tabs 04/15 Unknown Rx phentermine 15 mg-topiramate ER 92 1 cap PO Q24H 08/20 Unknown History mg capsule,ext.[id number] multphas (Qsymia) Allergy/AdvReac Type Severity Reaction Status Date / Time Penicillins AdvReac Rash Verified 08/20/24 21:14 Sulfa (Sulfonamide AdvReac Rash Verified 08/20/24 21:14 Antibiotics) Family History Grandmother Breast cancer Grandfather Diabetes Surgical History Hx of colonoscopy History of endometrial ablation S/P dilation and curettage S/P gastric surgery Status post breast reduction Social History Smoking Status: Never smoker alcohol intake: current details: occasionally substance use type: does not use caffeine: Yes what type of physical activity do you participate in: walking frequency: 3-4 times per week seatbelt use: always do you feel safe at home: Yes additional social history: Remarried to Rich! 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 [employer] Physical Exam Const Vital Signs: 08/20/24 21:14 Temperature 97.5 F L Temperature Source Temporal Pulse Rate 80 Respiratory Rate 18 Blood Pressure 154/79 H Blood Pressure Mean 104 Pulse Ox 97 Oxygen Delivery Method Room Air [facility] Lab Data Attestation: I reviewed the patient's lab results. Lab results narrative: CBC is unremarkable. Basic metabolic panel is unremarkable. Labs: Laboratory Results - last 24 hr 08/20/24 21:50 WBC 8.4 RBC 4.68 Hgb 13.0 Hct 40.9 MCV 87.4 MCH 27.8 MCHC 31.8 L RDW Std Deviation 48.1 H RDW Coeff of Annel 15.0 H Plt Count 330 MPV 10.2 Immature Gran % (Auto) 0.200 Neut % (Auto) 66.4 Lymph % (Auto) 24.2 Bates % (Auto) 7.2 Eos % (Auto) 1.4 Baso % (Auto) 0.6 Absolute Neuts (auto) 5.6 Absolute Lymphs (auto) 2.03 Nucleated RBC % 0 Sodium 140 Potassium 4.1 Chloride 106 Carbon Dioxide 23.6 Anion Gap 10 BUN 21 H Creatinine 0.74 Est GFR (MDRD) Non-Af 92 BUN/Creatinine Ratio 29.0 H Glucose 100 H Calcium 8.9 Radiography Diagnostic Testing: Clinical Impression(s) from Imaging Studies Abdomen/Pelvis CT 08/20/24 21:33 IMPRESSION: Jejunal enteritis such as secondary to infection. Advise correlation. Reading Location: [place] [address] CT of the abdomen pelvis with IV contrast was reviewed by me at 2209. The liver and spleen appear normal. Kidneys appear normal. The appendix appears normal. There appears to be sludge in the gallbladder. There is no thickening of the gallbladder wall. Awaiting formal read by radiologist. Radiologist interpreted as jejunal enteritis. Since this been going on for some time and she has no diarrhea we will treat with ciprofloxacin and metronidazole. Will have trade union secretary schedule appointment to see Dr. Bess after the . Patient was instructed no alcoholic beverages. 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, Goiter, Obesity (BMI 30.0- 34.9), Cholelithiasis, Right sided abdominal pain, Elevated blood-pressure reading without diagnosis of hypertension Instructions: Crohns Disease Lifestyle Changes, ED Hypertension, To Be Confirmed Prescriptions: New metronidazole 500 mg tablet 500 mg PO Q8H Qty: 21 0RF ciprofloxacin HCl 500 mg tablet 500 mg PO BID Qty: 14 0RF No Action venlafaxine 75 mg capsule,extended release 24hr 75 mg PO DAILY Qty: 30 12RF levothyroxine 75 mcg tablet 75 mcg PO DAILY cholecalciferol (vitamin D3) 50 mcg (2,000 unit) capsule 50 mcg PO DAILY phentermine-topiramate [Qsymia] 15-92 mg capsule, ER multiphase 24 hr 1 cap PO Q24H Primary Care Provider: Mirian Payton Referrals: Mirian Payton MD [Primary Care Provider] - 1-2 Weeks Asaf Bess DO [Med Staff - Active Staff] - Keep Bernard appointment Activity Restrictions/Additional Instructions: 1. No alcoholic beverages 24 hours before you start the metronidazole or 48 hours after your last dose 2. Take antibiotics until gone 3. You were scheduled with an appointment to see Dr. Bess after August 30. 4. Your blood pressure is elevated. You should have this rechecked by your physician. 5. You were given home-going structures for Crohn's disease since that matches closest to what was found on your CAT scan. This does not mean you have Crohn's disease. Print Language: [place] Disposition Disposition: Home, Self Care
[2024-08-20 22:15] LABS: Anion Gap 10 (5-15); BUN 21 mg/dL (4-19); BUN/Creat Ratio 29.0 RATIO (10-20); Calcium,Total 8.9 mg/dL (7.6-11.0); Carbon Dioxide 23.6 mmol/L (21.0-32.0); Chloride 106 mmol/L (98-108); Glucose 100 mg/dL (70-99); Potassium 4.1 mmol/L (3.3-5.1)
[2024-08-20 23:00] VITALS: BP 136/81; O2SAT 99
[2024-08-20 23:35] VITALS: BP 149/83; PULSE 70; RESP 16; TEMP 36.7; O2SAT 100
== END 2024-08-20 23:40 | disposition home or self-care (01) ==
PROVIDERS: Emergency Provider Emergency Medicine; PCP Internal Medicine; Referring Provider Emergency Medicine; Visit Provider Emergency Medicine
DX: K50.00 Crohn's disease of small intestine without complications (principal); R10.9 Unspecified abdominal pain; E66.9 Obesity, unspecified; R03.0 Elevated blood-pressure reading, without diagnosis of hypertension; E04.9 Nontoxic goiter, unspecified; F41.8 Other specified anxiety disorders; Z79.899 Other long term (current) drug therapy; Z68.30 Body mass index [BMI] 30.0-30.9, adult
CPT/HCPCS: 74177; 80048; 85025; 99282; Q9967; A4216

== ENCOUNTER → 2024-09-08 | Outpatient (CLI) | payer OTHER, SELFPAY ==
--- OUTSIDE RECORDS SUMMARY | 2024-09-08 21:07 | XMS RPT_ITS | CCD ---
Author Organization [facility] CliniSyar Care Team Providers Care Pharmacy Grad Intern Name Role Phone Millie Payton MD Primary Care Provider Tata, Dr. Vela Primary Care Provider Tata, Dr. Vela Referring Provider [phone] Rose Marie Brush Attending Provider Millie Payton MD Primary Care Provider Tata MA, Millie Primary Care Provider Tata, Dr. Vela Primary Care Provider Tata, Dr. Vela Referring Provider [phone] Rose Marie Brush Attending Provider Tata MA, Millie Primary Care Provider Kang MA, Chete Unavailable Dr. Millie Payton Primary Care Provider Dr. Millie Payton Referring Provider Dr. Rose Marie Brush Attending Provider Dr. Jeffery Rose Attending Provider [phone] Dr. Rose Marie Brush Referring Provider [phone] MILLIE PAYTON Referring Unavailable MILLIE PAYTON Primary Care Unavailable MILLIE PAYTON MD Admitting Unavailable MILLIE PAYTON MD Primary Care Unavailable MILLIE PAYTON MD Consulting Unavailable MILLIE PAYTON MD Attending Unavailable PROVIDER, UNKNOWN Consulting Unavailable PROVIDER, UNKNOWN Consulting Unavailable PROVIDER, UNKNOWN Consulting Unavailable MILLIE PAYTON MD Primary Care Unavailable MILLIE PAYTON MD Consulting Unavailable LATOUF, MILLIE MA Attending Unavailable LATOUF, MILLIE MA Admitting Unavailable PROVIDER, UNKNOWN Consulting Unavailable PROVIDER, UNKNOWN Consulting Unavailable PROVIDER, UNKNOWN Consulting Unavailable LATOUJuan, MILLIE MA Primary Care Unavailable LATOUF, MILLIE MA Consulting Unavailable LATOUF, MILLIE MA Attending Unavailable LATOUF, MILLIE MD Admitting Unavailable PROVIDER, UNKNOWN Consulting Unavailable PROVIDER, UNKNOWN Consulting Unavailable PROVIDER, UNKNOWN Consulting Unavailable LATOUF, MILLIE MA Primary Care Unavailable LATOUF, MILLIE MA Consulting Unavailable LATOUF, MILLIE MA Attending Unavailable LATOUF, MILLIE MA Admitting Unavailable PROVIDER, UNKNOWN Consulting Unavailable PROVIDER, UNKNOWN Consulting Unavailable PROVIDER, UNKNOWN Consulting Unavailable SELF, SELF Referring Unavailable JAYME ROCHA Attending Unavailable Tata MA, Dr. Vela Primary Care Provider Dr. Millie Payton MD Referring Provider Tracey Marquez Attending Provider Trudi MA, Dr. Trotter Attending Provider [phone] Jessica MA, Dr. Bojorquez Attending Provider Jessica MA, Dr. Bojorquez Other Provider Tata MA, Dr. Vela Primary Care Provider Dr. Millie Payton MD Referring Provider Dr. Mich Wheatley DO Emergency Provider Dr. Jeet Roberts MD Attending Provider Dr. Mich Wheatley DO Attending Provider Harry MA, Dr. Cortez Referring Provider Harry MA, Dr. Cortez Emergency Provider Dr. Millie Payton MD Primary Care Provider Dr. Millie Payton MD Referring Provider Trudi MA, Dr. Trotter Attending Provider Harry MA, Dr. Cortez Attending Provider Naty Menchaca Attending Provider Latouf, Butros Primary Care Unavailable Latouf, Butros Referring Unavailable MarccherylonyRose Marie Attending Unavailable Latouf, Butros Primary Care Unavailable Latouf, Butros Referring Unavailable Tracey Hudson Attending Unavailable Tracey Hudson Attending Unavailable Latouf, Butros Primary Care Unavailable Latouf, Butros Referring Unavailable Latouf, Butros Primary Care Unavailable Latouf, Butros Referring Unavailable MarcanthonyRose Marie Attending Unavailable Robotham, Maryellen Attending Unavailable Latouf, Butros Primary Care Unavailable Latouf, Butros Referring Unavailable Latouf, Butros Primary Care Unavailable Latouf, Butros Referring Unavailable Marcanthony, Rose Marie Attending Unavailable Latouf, Butros Primary Care Unavailable Latouf, Butros Referring Unavailable Drake, Naty Attending Unavailable Wanek, Jeet A Attending Unavailable Latouf, Butros Primary Care Unavailable Latouf, Butros Referring Unavailable Wanek, Jeet A Referring Unavailable Wanek, Jeet A Attending Unavailable Latouf, Butros Primary Care Unavailable Latouf, Butros Primary Care Unavailable Latouf, Butros Referring Unavailable Marcanthony, Rose Marie Attending Unavailable Latouf, Butros Primary Care Unavailable Marcanthony, Rose Marie Attending Unavailable Marcanthony, Rose Marie Referring Unavailable Latouf, Butros Primary Care Unavailable Mich Wheatley Attending Unavailable Latouf, Butros Primary Care Unavailable Mcdonald, Diego Referring Unavailable Mcdonald, Diego Attending Unavailable Latouf, Butros Primary Care Unavailable Drake, Naty Referring Unavailable Drake, Naty Attending Unavailable Latouf, Butros Primary Care Unavailable Drake, Naty Attending Unavailable Robotham, Maryellen Attending Unavailable Robotham, Maryellen Consulting Unavailable Latouf, Butros Primary Care Unavailable Latouf, Butros Referring Unavailable Tracey Hudson Attending Unavailable Latouf, Butros Primary Care Unavailable Latouf, Butros Referring Unavailable Latouf, Butros Primary Care Unavailable Latouf, Butros Referring Unavailable Marcanthony, Rose Marie Attending Unavailable Latouf, Butros Primary Care Unavailable Latouf, Butros Referring Unavailable Marcanthony, Rose Marie Attending Unavailable Latouf, Butros Primary Care Unavailable Latouf, Butros Referring Unavailable Marcanthony, Rose Marie Attending Unavailable Latouf, Butros Primary Care Unavailable Marcanthony, Rose Marie Referring Unavailable Marcanthony, Rose Marie Attending Unavailable Naty Menchaca Referring Provider [phone] Allergies Allergy Classification Reported Allergen(s) Allergy Type Date of Onset Reaction(s) Facility (3 sources) Penicillins; Translations: [PENICILLINS] Drug Intolerance 6 [facility] (10 sources) Sulfonamides (Antibiotic); Translations: [SULFA (SULFONAMIDE ANTIBIOTICS)] Drug Allergy 3 Rash, Itching [facility] (11 sources) Penicillins Propensity to adverse reactions 1 [facility] (11 sources) Sulfonamides (Antibiotic) Propensity to adverse reactions 1 [facility] (7 sources) Penicillins Drug Intolerance 6 [facility] (1 source) Penicillin Drug Allergy [facility] (1 source) Sulfonamides (Antibiotic) Drug allergy (disorder) [facility] (1 source) Penicillins Drug allergy (disorder) 5 [facility] (1 source) Sulfonamides (Antibiotic) Drug allergy (disorder) 5 [facility] Repository Medications Current Medications Medication Drug Class(es) Dates Sig (Normalized) Sig (Original) cholecalciferol 0.05 mg oral capsule (6 sources) Vitamin D Start: 07-31-2024 take 1 [...] / oxyCODONE hydrochloride 5 mg oral tablet (12 sources) Opioid Agonist Start: 01-29-2014 End: 03-31-2019 Oxycodone-Acetamino phen 1 TABLET tablet Discontinued 2 {tbl} PO EVERY 4 HOURS NEEDED as needed for Moderate-Severe pain 10 0 January 29, 2014 1:00am March 31, 2019 9:47am Start: 01-29-2014 End: 03-31-2019 take 2 tablets by mouth every four hours as needed Oxycodone-Acetaminophen Discontinued 2 TABLET PO EVERY 4 HOURS NEEDED January 29, 2014 12:00am March 31, 2019 8:47am [id number] actuat albuterol 0.09 mg/actuat metered dose [...] Comment on above: Take 1 capsule by [facility] three times daily as needed. ciprofloxacin 500 mg oral tablet (3 sources) Quinolone Antimicrobial Start: 08-20-2024 End: 09-08-2024 take 1 tablet by mouth twice daily Ciprofloxacin Hcl 500 mg tablet Discontinued 500 mg PO TWICE A DAY 14 0 August 20, 2024 12:00am September 08, 2024 3:56pm dicyclomine hydrochloride 10 mg oral capsule (2 sources) Anticholinergic Start: 09-01-2024 End: 09-08-2024 take 1 capsule by mouth three times daily Dicyclomine 10 mg capsule Discontinued 10 mg PO THREE TIMES A DAY September 01, 2024 12:00am September 08, 2024 3:56pm methylPREDNISolone (4 sources) Corticosteroid Start: 10-12-2022 methylPREDNISolone (MEDROL DOSE-PACK) 4 mg Dose-Pack metroNIDAZOLE 500 mg oral tablet (3 sources) Nitroimidazole Antimicrobial Start: 08-20-2024 End: 09-08-2024 take 1 tablet by mouth every eight hours Metronidazole 500 mg tablet Discontinued 500 mg PO Q8H August 20, 2024 12:00am September 08, 2024 3:56pm miSOPROStol 0.2 mg oral tablet (13 sources) Prostaglandin E1 Analog Start: 01-29-2014 End: 03-31-2019 Misoprostol 200 MCG tablet Discontinued January 29, 2014 1:00am March 31, 2019 9:47am Start: 01-28-2014 End: 08-09-2021 Misoprostol Discontinued 2 D 2013 12:00am March 31, 2019 8:47am Comment on above: Take two tabs by franchesca th the night before and 4 hours prior to surgery naproxen 250 mg oral tablet (12 sources) Nonsteroidal Anti-inflammatory Drug Start: 014 End: 020 take 250-500 mg by mouth every eight hours as needed for pain Naproxen 250 MG tablet Discontinued 250 - 500 mg PO EVERY 8 HOURS NEEDED as needed for MILD PAIN January 29, 2014 1:00am March 31, 2019 9:47am phentermine hydrochloride 37.5 mg oral capsule (12 sources) Sympathomimetic Amine Anorectic Start: 021 End: 021 take 1 capsule by mouth once daily 30 minutes after breakfast Phentermine (Adipex-P) 37.5 mg capsule Discontinued 37.5 mg PO DAILY July 09, 2020 12:00am August 31, 2020 2:07pm must administer 30 minutes before or 1-2 hours after breakfast 24 hr phentermine 15 mg / topiramate 92 mg extended release oral capsule (20 sources) Sympathomimetic Amine Anorectic Start: 025 End: 025 Phentermine-Topiram ate (Qsymia) 15-92 mg capsule, ER multiphase 24 hr Discontinued 1 NMA PO Q24H August 20, 2024 12:00am September 08, 2024 3:56pm Start: 10-26-2023 End: 07-31-2024 Phentermine-Topiramate (Qsym ia) 15-92 mg capsule, ER multiphase 24 hr Discontinued 1 NMA PO Q24H 30 May 30, 2024 12:32pm July 31, 2024 10:27am Start: 09-14-2023 End: 10-26-2023 Phentermine-Topiramate (Qsym ia) 11.25-69 mg capsule, ER multiphase 24 hr Discontinued 1 NMA PO DAILY 30 30 October 26, 2023 11:33am October 26, 2023 1:25pm bmi 35 Start: 07-10-2023 End: 10-11-2023 Phentermine-Topiramate (Qsym ia) 7.5-46 mg capsule, ER multiphase 24 hr Discontinued 1 NMA PO DAILY 30 July 10, 2023 12:00am October 11, 2023 8:45am 24 hr venlafaxine 75 mg extended release oral capsule (20 sources) Serotonin and Norepinephrine Reuptake Inhibitor Start: 02-16-2022 End: 05-30-2024 take 1 capsule by mouth once daily Venlafaxine 75 mg capsule,extended release 24hr Discontinued 75 mg PO DAILY 30 May 12, 2024 2:55pm May 30, 2024 12:30pm Start: 09-30-2021 End: 02-16-2022 take 1 capsule by mouth once daily Venlafaxine (Effexor Xr) 37.5 mg capsule,extended release 24hr Discontinued 37.5 mg PO DAILY 30 September 30, 2021 12:00am February 16, 2022 [...] release 24hr Discontinued 75 mg PO DAILY 30 March 31, 2019 12:36pm November 24, 2021 [...] Date Documented Da te Episodic/Chronic Abdominal pain (18 sources) Abdominal pain; Translations: [Unspecified abdominal pain] Onset: 09-01-2024 08-13-2024 Episodic Anxiety disorders (20 sources) Mixed anxiety and depressive disorder; Translations: [Other specified anxiety disorders] Chronic Comment on above: effexor Biliary tract disease (18 sources) Biliary calculus; Translations: [Calculus of gallbladder without cholecystitis without obstruction] Onset: 09-01-2024 08-13-2024 Episodic Blindness and vision defects (2 sources) Diplopia; Translations: [Diplopia] Episodic Disorders of lipid metabolism (1 source) Mixed hyperlipidemia; Translations: [Mixed hyperlipidemia] 12-26-2022 Chronic Menopausal disorders (8 sources) Abnormal perimenopausal bleeding; Translations: [Excessive bleeding in the premenopausal period] Onset: 11-01-2011 11-01-2011 Chronic Nutritional deficiencies (3 sources) Vitamin D deficiency, unspecified; Translations: [Vitamin D deficiency] Onset: 12-28-2023 Chronic Other and unspecified benign neoplasm (12 sources) History of polyp of colon; Translations: [History of colonic polyps] 08-04-2024 Episodic Other circulatory disease (3 sources) Elevated blood-pressure reading without diagnosis of hypertension; Translations: [Elevated blood-pressure reading, without diagnosis of hypertension] 08-20-2024 Episodic Other gastrointestinal disorders (12 sources) Incontinence of feces; Translations: [Full incontinence of feces] 09-30-2021 Episodic Comment on above: discussed kegel exer cises, incontrolmedical. Other gastrointestinal disorders (2 sources) Full incontinence of feces; Translations: [Full incontinence of feces] Episodic Other nutritional; endocrine; and metabolic disorders (20 sources) Obesity; Translations: [Obesity, unspecified] 09-30-2021 Chronic Comment on above: Nutrition plan: LCHF 1200, 40-50 net carb [...] Chronic Other nutritional; endocrine; and metabolic disorders (19 sources) Obese class I; Translations: [Class 1 obesity] 10-11-2023 Chronic Comment on above: SW- 230 03/08/23s/p 8 % weight reduction with nutritional and medication intervention recommendations.initial obesity assessment lab panel reviewed. cardiac reviewed echo and ekg Other nutritional; endocrine; and metabolic disorders (6 sources) Body mass index 30+ - obesity; [...] at colp 12/12-mild changes, repeat pap 2024. Regional enteritis and ulcerative colitis (3 sources) Crohn's disease of jejunum; Translations: [Crohn's disease of small intestine without complications] 08-20-2024 Chronic Residual codes; unclassified (19 sources) Positive measurement finding; Translations: [Positive test for human papillomavirus (HPV)] Episodic Comment on above: 21 and ascus 22, 23, repeat pap and hpv 2023 Residual codes; unclassified (12 sources) Family history of cancer of colon; Translations: [Family history of malignant neoplasm of digestive organs] 08-04-2024 Episodic Comment on above: Brother Residual codes; unclassified (1 source) Family history of malignant neoplasm of digestive organs; Translations: [Family history of malignant neoplasm of digestive organs] Onset: 08-18-2024 Episodic Thyroid disorders (20 sources) Goiter; Translations: [Nontoxic goiter, unspecified] Onset: 12-28-2023 09-23-2019 Chronic Comment on above: dr payton manages Transient cerebral ischemia (2 sources) Cerebral ischemia; Translations: [Transient cerebral ischemic attack, unspecified] Chronic Unclassified (2 sources) Personal history of colon polyps, unspecified; Translations: [Personal history of colon polyps, unspecified] Onset: 08-18-2024 Past or Other Problems Problem Classification Problem [...] Test Name Value Interpretation Reference Range Facility Gastroenterology Visit Repor ton 09-01-2024 Gastroenterology Visit Report [facility]astroenter[facility] [address] [place] [address] OFFICE VISIT Date of Service: 09/01/24 MR#: [id number] Acct: [id number] Name: ALFONSO VERDUGO Rep #: [id number] : 1960 Provider: ARSALAN verdin Age/Sex: 64/F Location: [facility] Status: Signed Intake Vital Signs 08/20/24 21:14 Height 5 ft 6 in BP 154/79 H Respiration 18 Pulse 80 Temp 97.5 F L Temp Source Temporal Pulse Oximetry (%) 97 Intake Visit Reasons: ER FU RT SIDE PAIN CT SCAN Chief Complaint: ED f/u- gallstones Allergies Penicillins Adverse Reaction (Verified 09/01/24 11:07) Rash Sulfa (Sulfonamide Antibiotics) Adverse Reaction (Verified 09/01/24 11:07) Rash Medications ???Medication ???Instructions ???Recorded ???Confirmed ???Type venlafaxine 75 mg capsule,extended 75 mg PO DAILY #30 caps 05/30/24 09/01/24 Rx release 24 hr cholecalciferol (vitamin D3) 50 50 mcg PO DAILY 07/31/24 09/01/24 History mcg (2,000 unit) capsule levothyroxine 75 mcg tablet 75 mcg PO DAILY 07/31/24 09/01/24 History ciprofloxacin HCl 500 mg tablet 500 mg PO BID #14 TABLETS 08/20/24 09/01/24 Rx metronidazole 500 mg tablet 500 mg PO Q8H #21 tabs 08/20/24 Rx phentermine 15 mg-topiramate ER 92 1 cap PO Q24H 08/20/24 09/01/24 History mg capsule,[id number] multphas (Qsymia) dicyclomine 10 mg capsule 10 mg PO TID #10 caps 09/01/24 Rx PFSH Medical History Right sided abdominal pain Wears glasses Wears contact lenses History of steroid therapy Thyroid disease Injury of head and neck Non-smoker History of edema History of echocardiogram Depression with anxiety Goiter Surgical History Hx of colonoscopy History of [...] social history: Remarried to Rich! 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 [employer] History Menstrual Ab spontaneous: 1 HPI HPI Chief Complaint: ED f/u- gallstones Details: ALFONSO VERDUGO, is a 64 F who presents to the office today for establishment with [facility] regarding right sided abdominal pain that radiates to the back. She denies the pain is stimulated by any particular foods. She naturally avoids anything fried, but while on vacation this past week she enjoyed fried scallops and a milkshake without any change or increase in pain sensation. She denies fever, nausea, vomiting, heartburn, reflux, diarrhea, constipation, hematochezia, and melena. She states that processed snack foods will trigger loose stools, but not watery diarrhea. She states that exertional activities (bike riding and lawn mowing) make her pain intensify and she will need to take short breaks to rest, but is still tolerable. She reports that applying heat is soothing but not relieving. And laying down in bed will make the discomfort go away almost completely. She finished the course of antibiotics prescribed by ER on 08.28.24. She denies taking any analgesia, OTC or Rx. 08.04.24 [facility]-presents for screening colonoscopy due history of colon polyps???tubular adenoma. Patient's last colonoscopy was [address] Infante, about 4 years ago patient's brother was diagnosed with colon cancer at age 55. Patient has bowel movements daily denies any blood. Patient denies any chronic abdominal pain/nausea/vomiting/re flux. 08.04.24 Colonoscopy - One less than 5 mm polyp in the descending colon, removed with a hot snare. Resected and retrieved. - The examination was otherwise normal on direct and retroflexion views. - Repeat 3years 08.13.24 [facility]-Patient is a 64-year-old female with past medical [...] with 1 polyp removed and called the sheet metal duct installer office and they state that she should not still be having pain from this. They advised her to go to the emergency department to be evaluated. Patient also notes that she is going on vacation next (more content not included)... Normal [facility] Abdomen/Pelvis W IV Cont ONL Yon 08-20-2024 Abdomen/Pelvis W IV Cont ONLY [facility] Imaging Services [address] [place], [place] [address] Abdomen/Pelvis W IV Cont ONLY MR#: [id number] Acct: [id number] Name: ALFONSO VERDUGO Rep #: [id number] : 1960 F 64 From: Blue Lombardo MD PCP: Dr. Millie Payton MD Status: REG ER Study: Abdomen/Pelvis W IV Cont ONLY Date of Exam: Exam# [id number] Ordering Dr: Diego Mcdonald MD PROCEDURE: ABDOMEN/PELVIS W IV CONT ONLY 08/20/2024 REASON FOR EXAM: RIGHT LOWER QUADRANT PAIN, CREATININE 0.68 AUGUST 13 TECHNIQUE: ABDOMEN/PELVIS W IV CONT ONLY Coronal and Sagittal reconstruction series were provided. CONTRAST: Isovue 300 VOLUME: 97 mL One or more dose reduction techniques were used (e.g., Automated exposure control, adjustment of the mA and/or kV according to patient size, use of iterative reconstruction technique. RADIATION DOSE SUMMARY: CTDlvol: 30 mGy DLP: 961 mGycm COMPARISON: Ultrasound 08/13/2024 FINDINGS: Clear lung bases. Normal heart size. Small hiatal hernia. Noncalcified gallstone. Unremarkable liver, pancreas,, adrenal glands,. No hydronephrosis or ureteral stone. Normal uterus and ovaries. No retroperitoneal or pelvic adenopathy. Mesenteric panniculitis. No free air. Status post gastric sleeve. Multiple proximal jejunal loops show wall thickening without pneumatosis. Nondistended bowel. Normal appendix. No acute large bowel findings. Lumbar spine scoliosis and degeneration. CT/Abdomen/Pelvis W IV Cont ONLY IMPRESSION: Jejunal enteritis such as secondary to infection. Advise correlation. Reading Location: [place] [address] CC: Dr. Millie Payton MD; Dr. 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 Normal [facility] Absolute lymphocyte countOrd ered By: Diegoana Mcdonald on 08-20-2024 Lymphocytes Auto (Unsp spec) [#/Vol] 2.03 10*3/uL 0.83-4.51 [facility] Absolute neutrophil countOrd ered By: [facility] 08-[facility]24 Neutrophils (Bld) [#/Vol] 5.6 10*3/uL 2.0-7.7 [facility] Anion gap in Serum or Plasma Ordered By: Diegoana Mcdonald on 08-20-2024 Anion gap [Moles/Vol] 10 mmol/L 5-15 [facility] Automated lymphocyte count a s percentage of total leukocytesOrdered By: Diegoana Mcdonald on 08-20-2024 Lymphocytes/100 WBC Auto (Unsp spec) 24.2 % 19-41 [facility] BUN/creatinine ratioOrdered By: [facility] on 08-20-2024 Urea nitrogen/Creatinine [Mass ratio] 29.0 mg/mg High 10-20 [facility] Basic Metabolic Profile (BMP )on 08-20-2024 BUN/CRE 29.0 RATIO High 10-20 [facility] Comment on above: Performed By: #### L 100.0100, L500.2500 ####[facility] [address] [place], [address] Calcium [Mass/Vol] 8.9 mg/dL Normal 7.6-11.0 [facility] Comment on above: Performed By: #### L 100.0100, L500.2500 ####[facility] [address] [place], [address] Chloride [Moles/Vol] 106 mmol/L Normal 98-108 [facility] Comment on above: Performed By: #### L 100.0100, L500.2500 ####[facility] [address] [place], [address] CO2 [Moles/Vol] 23.6 mmol/L Normal 21.0-32.0 [facility] Comment on above: Performed By: #### L 100.0100, L500.2500 ####[facility] [address] [place], [address] Creatinine [Mass/Vol] 0.74 mg/dL Normal 0.70-1.20 [facility] Comment on above: Performed By: #### L 100.0100, L500.2500 ####[facility] [address] [place], [address] GAP 10 Normal 5-15 [facility] Comment on above: Performed By: #### L 100.0100, L500.2500 ####[facility] [address] [place], [address] GFR/1.73 sq M.predicted among non-blacks MDRD (S/P/Bld) [Vol rate/Area] 92 mL/min/{1.73_m2} Normal >60 [facility] Comment on above: Result Comment: mL/m in/1.73m2 CKD-EPI Creatinine Equation (2020) Performed By: #### L 100.0100, L500.2500 ####[facility] [address] [place], [address] Glucose [Mass/Vol] 100 mg/dL High 70-99 [facility] Comment on above: Performed By: #### L 100.0100, L500.2500 ####[facility] [address] [place], [address] Potassium [Moles/Vol] 4.1 mmol/L Normal 3.3-5.1 [facility] Comment on above: Performed By: #### L 100.0100, L500.2500 ####[facility] [address] [place], [address] Sodium [Moles/Vol] 140 mmol/L Normal 133-145 [facility] Comment on above: Performed By: #### L 100.0100, L500.2500 ####[facility] [address] [place], [address] Urea nitrogen [Mass/Vol] 21 mg/dL High 4-19 [facility] Comment on above: Performed By: #### L 100.0100, L500.2500 ####[facility] [address] [place], [address] Basophil percentageOrdered B y: Diego Mcdonald on 08-20-2024 Basophils/100 WBC (Bld) 0.6 % 0-1 [facility] CBC W/Diff, Automatedon Absolute Lymph 2.03 X10 3/uL Normal 0.83-4.51 [facility] Comment on above: Performed By: #### L 100.0100, L500.2500 ####[facility] [address] [place], [address] Absolute Neut 5.6 X10 3/uL Normal 2.0-7.7 [facility] Comment on above: Performed By: #### L 100.0100, L500.2500 ####[facility] [address] [place], [address] Basophils/100 WBC (Bld) 0.6 % Normal 0-1 [facility] Comment on above: Performed By: #### L 100.0100, L500.2500 ####[facility] [address] [place], [address] Eosinophils/100 WBC (Bld) 1.4 % Normal 0-5 [facility] Comment on above: Performed By: #### L 100.0100, L500.2500 ####[facility] [address] [place], [address] Erythrocyte distribution width (RBC) [Ratio] 15.0 % High 11.6-14.6 [facility] Comment on above: Performed By: #### L 100.0100, L500.2500 ####[facility] [address] [place], [address] Hematocrit (Bld) [Volume fraction] 40.9 % Normal 37-47 [facility] Comment on above: Performed By: #### L 100.0100, L500.2500 ####[facility] [address] [place], [address] Hemoglobin (Bld) [Mass/Vol] 13.0 g/dL Normal 12.0-15.0 [facility] Comment on above: Performed By: #### L 100.0100, L500.2500 ####[facility] [address] [place], [address] IG% 0.200 Normal 0.0-0.9 [facility] Comment on above: Result Comment: IG% - Immature Granulocytes (promyelocytes, myelocytes and metamyelocytes) > 1% indicates that a LEFT SHIFT is Present. Performed By: #### L 100.0100, L500.2500 ####[facility] [address] [place], [address] Lymphocytes/100 WBC (Bld) 24.2 % Normal 19-41 [facility] Comment on above: Performed By: #### L 100.0100, L500.2500 ####[facility] [address] [place], [address] MCH (RBC) [Entitic mass] 27.8 pg Normal 27.0-32.0 [facility] Comment on above: Performed By: #### L 100.0100, L500.2500 ####[facility] [address] [place], [address] MCHC (RBC) [Mass/Vol] 31.8 g/dL Low 32-36 [facility] Comment on above: Performed By: #### L 100.0100, L500.2500 ####[facility] [address] [place], [address] MCV (RBC) [Entitic vol] 87.4 fL Normal 81-99 [facility] Comment on above: Performed By: #### L 100.0100, L500.2500 ####[facility] [address] [place], [address] Monocytes/100 WBC (Bld) 7.2 % Normal 0-10 [facility] Comment on above: Performed By: #### L 100.0100, L500.2500 ####[facility] [address] [place], [address] Neutrophils/100 WBC (Bld) 66.4 % Normal 47-70 [facility] Comment on above: Performed By: #### L 100.0100, L500.2500 ####[facility] [address] [place], [address] Nucleated RBC (Bld) [#/Vol] 0 10*3/uL Normal 0-5 [facility] Comment on above: Performed By: #### L 100.0100, L500.2500 ####[facility] [address] [place], [address] Platelet mean volume (Bld) [Entitic vol] 10.2 fL Normal 6.2-12.0 [facility] Comment on above: Performed By: #### L 100.0100, L500.2500 ####[facility] [address] [place], [address] Platelets (Bld) [#/Vol] 330 10*3/uL Normal 150-450 [facility] Comment on above: Performed By: #### L 100.0100, L500.2500 ####[facility] [address] [place], [address] RBC (Bld) [#/Vol] 4.68 10*6/uL Normal 4.2-5.4 [facility] Comment on above: Performed By: #### L 100.0100, L500.2500 ####[facility] [address], [address] RDW SD 48.1 fl High 35.1-43.9 [facility] Comment on above: Performed By: #### L 100.0100, L500.2500 ####[facility] [address] [place], [address] WBC (Bld) [#/Vol] 8.4 10*3/uL Normal 4.4-11.0 [facility] Comment on above: Performed By: #### L 100.0100, L500.2500 ####[facility] [address], [address] Carbon dioxide, total [Moles /volume] in Central venous bloodOrdered By: Diego Mcdonald on 08-20-2024 CO2 [Moles/Vol] 23.6 mmol/L 21.0-32.0 [facility] Chloride assayOrdered By: Milo Mcdonald on 08-20-2024 Chloride [Moles/Vol] 106 mmol/L 98-108 [facility] Emergency Department Summary on 08-20-2024 Emergency Department Summary [facility] Medical Records Department [address] [place] [address] Emergency Department Summary 08/20/24 MR#: [id number] Acct: [id number] Name: ALFONSO VERDUGO PASCALE Rep #: [id number] : 1960 64 From: Diego Mcdonald MD PCP: Dr. Millie Payton MD Status:REG ER Location: ED HPI HPI - GI History of Present Illness Chief Complaint: Abd Pain PFSH PFS Medical History (Updated 08/20/24 @ 23:[address] Diego Mcdonald MD) Right sided abdominal pain Wears glasses Wears contact lenses History of [...] 75 mcg PO DAILY 07/31/24 08/04/24 History ciprofloxacin HCl 500 mg tablet 500 mg PO BID #14 TABLETS 08/20/24 Unknown Rx metronidazole 500 mg tablet 500 mg PO Q8H #21 tabs 08/20/24 Un known Rx phentermine 15 mg-topiramate ER 92 1 cap PO Q24H 08/20/24 Unknown H istory mg capsule,[id number] multphas (Qsymia) Allergy/AdvReac Type Severity Reaction Status Date / Time Penicillins AdvReac Rash Verified 08/20/24 21:14 Sulfa (Sulfonamide AdvReac Rash Verified 08/20/24 21:14 Antibiotics) Family History Grandmother Breast cancer Grandfather [...] social history: Remarried to Rich! 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 [employer] Physical Exam Const Vital Signs: 08/20/24 21:14 Temperature 97.5 F L Temperature Source Temporal Pulse Rate 80 Respiratory Rate 18 Blood Pressure 154/79 H Blood Pressure Mean 104 Pulse Ox 97 Oxygen Delivery Method Room Air [facility] MDM Lab Data Attestation: I reviewed the patient's lab results. Lab results narrative: CBC is unremarkable. Basic metabolic panel is unremarkable. Labs: Laboratory Results - last 24 hr 08/20/24 21:50 WBC 8.4 RBC 4.68 Hgb 13.0 Hct 40.9 MCV 87.4 MCH 27.8 MCHC 31.8 L RDW Std Deviation 48.1 H RDW Coeff of Annel 15.0 H Plt Count 330 MPV 10.2 Immature Gran % (Auto) 0.200 Neut % (Auto) 66.4 Lymph % (Auto) 24.2 O'Brien % (Auto) 7.2 Eos % (Auto) 1.4 Baso % (Auto) 0.6 Absolute Neuts (auto) 5.6 Absolute Lymphs (auto) 2.03 Nucleated RBC % 0 Sodium 140 Potassium 4.1 Chloride 106 Carbon Dioxide 23.6 Anion Gap 10 BUN 21 H Creatinine 0.74 Est GFR (MDRD) Non-Af 92 BUN/Creatinine Ratio 29.0 H Glucose 100 H Calcium 8.9 Radiography Diagnostic Testing: Clinical Impression(s) from Imaging Studies Abdomen/Pelvis CT 08/20/24 21:33 IMPRESSION: Jejunal enteritis such as secondary to infection. Advise correlation. Reading Location: [facility] CT of the abdomen pelvis with IV contrast was reviewed by ok at 2209. The liver and spleen appear normal. Kidneys appear normal. The appendix appears normal. There appears to be sludge in the gallbladder. There is no thickening of the gallbladder wall. Awaiting formal read by radiologist. Radiologist interpreted as jejunal enteritis. Since this been going on for some time and she has no diarrhea we will treat with ciprofloxacin and metronidazole. Will have placement secretary schedule appointment to see Dr. Bess after the . Patient was instructed no alcoholic beverages. 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 Normal [facility] Eosinophil percentageOrdered By: Diegoana Mcdonald on 08-20-2024 Eosinophils/100 WBC (Bld) 1.4 % 0-5 [facility] Erythrocyte distribution wid th ratioOrdered By: Diegoana Mcdonald on 08-20-2024 Erythrocyte distribution width (RBC) [Ratio] 15.0 % High 11.6-14.6 [facility] Erythrocyte distribution wid th standard deviationOrdered By: Diegoana Mcdonald on 08-20-2024 Erythrocyte distribution width (RBC) [Ratio] 48.1 fl High 35.1-43.9 [facility] Glomerular filtration rate ( GFR) estimation/1.73 sq m using serum, plasma, or whole bOrdered By: Diegoana Mcdonald on 08-20-2024 GFR/1.73 sq M.predicted among non-blacks MDRD (S/P/Bld) [Vol rate/Area] 92 mL/min/{1.73_m2} >60 [facility] Comment on above: mL/min/1.73m2 CKD-EP I Creatinine Equation (2020) Hematocrit Auto (Bld) [Volum e fraction]Ordered By: Diegoana Mcdonald on 08-20-2024 Hematocrit (Bld) [Volume fraction] 40.9 % 37-47 [facility] Hemoglobin measurementOrdere d By: Diegoana Mcdonald on 08-20-2024 Hemoglobin (Bld) [Mass/Vol] 13.0 g/dL 12.0-15.0 [facility] Immature granulocytes/100 WB C Auto (Bld)Ordered By: Diegoana Mcdonald 08-20-2024 Immature granulocytes/100 WBC (Bld) 0.200 % 0.0-0.9 [facility] Comment on above: IG% - Immature Granu locytes (promyelocytes, myelocytes and metamyelocytes) > 1% indicates that a LEFT SHIFT is Present. MCV (mean corpuscular volume ) determinationOrdered By: Diego Mcdonald on 08-20-2024 MCV (RBC) [Entitic vol] 87.4 fL 81-99 [facility] Mean corpuscular hemoglobin (MCH) determinationOrdered By: Diegoana Mcdonald 08-20-2024 MCH (RBC) [Entitic mass] 27.8 pg 27.0-32.0 [facility] Mean corpuscular hemoglobin concentration (MCHC) determinationOrdered By: Diego Mcdonald on 08-20-2024 MCHC (RBC) [Mass/Vol] 31.8 g/dL Low 32-36 [facility] Mean platelet volume determi nationOrdered By: Diego Mcdonald on 08-20-2024 Platelet mean volume (Bld) [Entitic vol] 10.2 fL 6.2-12.0 [facility] Monocyte percentageOrdered B y: Diego Mcdonald on 08-20-2024 Monocytes/100 WBC (Bld) 7.2 % 0-10 [facility] Neutrophil percentageOrdered By: Diegoana Mcdonald on 08-20-2024 Neutrophils/100 WBC (Bld) 66.4 % 47-70 [facility] Nucleated red blood cell per centageOrdered By: Diego Mcdonald on 08-20-2024 Nucleated RBC/100 WBC (Bld) [Ratio] 0 % 0-5 [facility] Platelet countOrdered By: Milo Mcdonald on 08-20-2024 Platelets (Bld) [#/Vol] 330 10*3/uL 150-450 [facility] Potassium measurement (mass/ volume)Ordered By: Diego Mcdonald on 08-20-2024 Potassium (Unsp spec) [Mass/Vol] 4.1 mmol/L 3.3-5.1 [facility] RBC Auto (Bld) [#/Vol]Ordere d By: Diego Mcdonald on 08-20-2024 RBC (Bld) [#/Vol] 4.68 10*6/uL 4.2-5.4 [facility] Serum creatinine measurement (mass/volume)Ordered By: Diego Mcdonald on 08-20-2024 Creatinine [Mass/Vol] 0.74 mg/dL 0.70-1.20 [facility] Serum glucose measurement (m ass/volume)Ordered By: Diego Mcdonald on 08-20-2024 Glucose [Mass/Vol] 100 mg/dL High 70-99 [facility] Serum or plasma calcium alisa urement (mass/volume)Ordered By: Diego Mcdonald on 08-20-2024 Calcium [Mass/Vol] 8.9 mg/dL 7.6-11.0 [facility] Serum or plasma urea nitroge n measurement (mass/volume)Ordered By: Diego Mcdonald on 08-20-2024 Urea nitrogen [Mass/Vol] 21 mg/dL High 4-19 [facility] Sodium levelOrdered By: Diego Mcdonald on 08-20-2024 Sodium [Moles/Vol] 140 mmol/L 133-145 [facility] White blood cell (WBC) count Ordered By: Diego Mcdonald on 08-20-2024 WBC (Bld) [#/Vol] 8.4 10*3/uL 4.4-11.0 [facility] Surgery Visit Reporton 08-14 Surgery Visit Report [facility] [address] [place] [address] OFFICE VISIT Date of Service: 08/14/24 MR#: [id number] Acct: [id number] Name: ALFONSO VERDUGO PASCALE Rep #: [id number] : 1960 Provider: Dr. Jeet hurley MD Age/Sex: 64/F Location: [facility] Status: Signed Intake Vital Signs 08/13/24 10:41 08/14/24 09:11 Height 5 ft 6 in 5 ft 6 in Weight: 217 lb BMI 35.0 BP 135/77 H Blood Pressure Location Rt brachial Position Sitting Respiration 18 Pulse 78 Pulse Source Monitor Temp 97.3 F L Temp Source Temporal Pulse Oximetry (%) 99 Oxygen Delivery Method room air Intake Visit Reasons: ER F/U Chief Complaint: ED f/u- gallstones Is patient in pain?: Yes (RUQ ache) Allergies Penicillins Adverse Reaction (Verified 08/14/24 09:11) Rash Sulfa (Sulfonamide Antibiotics) Adverse Reaction (Verified 08/14/24 09:11) Rash Medications ???Medication ???Instructions ???Recorded ???Confirmed ???Type venlafaxine 75 mg capsule,extended 75 mg PO DAILY #30 caps 05/30/24 08/14/24 Rx release 24 hr cholecalciferol (vitamin D3) 50 50 mcg PO DAILY 07/31/24 08/14/24 History mcg (2,000 unit) capsule levothyroxine 75 mcg tablet 75 mcg PO DAILY 07/31/24 08/14/24 History [facility] Medical History (Updated 08/14/24 @ 09:52 by Nanyc Collier LPN) Right sided abdominal pain Wears glasses Wears contact lenses History of steroid therapy Thyroid disease Injury of head and neck Non-smoker History of edema History of echocardiogram Depression with anxiety Goiter Surgical History Hx of colonoscopy History of [...] home: Yes additional social history: Remarried to [employer]! 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 [employer] History Menstrual Ab spontaneous: 1 HPI HPI HPI: The patient is a 64-year-old female who presents with right-sided abdominal pain. She was seen last evening in the emergency department and underwent a workup for her gallbladder. Ultrasound showed some sludge and some small gallstones but no gallbladder wall thickening. Her white count all of her LFTs were normal. Since she was doing well clinically we elected to let her go home and have her follow-up today in the office for further evaluation. Based on her history it sounds as though her pain is actually more in the mid right abdomen and not necessarily entirely in the right upper quadrant. She denies any association with food. She states that a recent weekend she was riding a bicycle and states that this contributed to her pain. She denies any fevers or chills. No nausea or vomiting or other GI complaints. No recent CT scan. She did have a recent colonoscopy that removed 1 polyp about 2 weeks ago otherwise this was a normal colonoscopy ROS General General: No weight change, appetite, fatigue, colon cancer, breast cancer or weakness HEENT HEENT: No difficulty swallowing, eye injury, eye surgery, swollen glands or hoarseness Endo Endocrine: Yes thyroid disease; No diabetes mellitus, thyroid cancer, Hair loss, heat intolerance or cold intolerance Skin Skin: No rash or changing moles Musc Musculoskeletal: No back problems, arthritis, rheumatoid arthritis, gout or joint pain Cardio Cardiovascular: No murmur, pacemaker, heart disease, atrial fibrillation, high blood pressure, heart attack, heart stent, palpitations, shortness of breath with exertion or chest pain Psych Psychiatric: No depression, anxiety or hearing voices Resp Respiratory: No shortness of breath, No sleep apnea, No cough, No COPD, No asthma, No emphysema and No wheezing Gastro Gastrointestinal: Yes abdominal pain (RUQ), No nausea or vomiting, No diarrhea, No constipation, No blood in stool, No acid reflux, No hemorrhoids, No ulcers, Yes gallbladder problem and No black,tarry stools Remigio Hematologic: No blood thinners, No blood disorders, No bleeding, No anemia and No blood clots Neuro Neurologic: No tingling and No weakness Exam Const General: cooperative, healthy appearing and comfortable HENMT Head: normal to inspection Eyes General: appearance normal, both eyes and all related structures Neck Neck: normal visua (more content not included)... Normal [facility] Abdomen Limitedon 08-13-2024 Abdomen Limited [facility] [address] [place] [address] Abdomen Limited MR#: [id number] Acct: [id number] Name: ALFONSO VERDUGO Rep #: [id number] : 1960 F 64 From: Landon Camara PCP: Dr. Millie Payton MD Status: [facility] ER Study: Abdomen Limited Date of Exam: 08/13/24 Exam# [id number] Ordering Dr: Mich Wheatley DO PROCEDURE: ABDOMEN LIMITED 08/13/2024 REASON [...] acute cholecystitis. Nonspecific echogenic pancreas. Reading Location: [facility] CC: Dr. Millie Payton MD; Dr. Mich Wheatley DO Professor [employer] Industrial [employer]: Signed Normal [facility] Absolute lymphocyte countOrd ered By: Mich Wheatley on 08-13-2024 Lymphocytes Auto (Unsp spec) [#/Vol] 1.87 10*3/uL 0.83-4.51 [facility] Absolute neutrophil countOrd ered By: Mich Wheatley on 08-13-2024 Neutrophils (Bld) [#/Vol] 3.6 10*3/uL 2.0-7.7 [facility] Anion gap in Serum or Plasma Ordered By: Mich Wheatley on 08-13-2024 Anion gap [Moles/Vol] 12 mmol/L 5-15 [facility] Automated lymphocyte count a s percentage of total leukocytesOrdered By: Mich Wheatley on 08-13-2024 Lymphocytes/100 WBC Auto (Unsp spec) 31.3 % 19-41 [facility] BUN/creatinine ratioOrdered By: Mich Wheatley on 08-13-2024 Urea nitrogen/Creatinine [Mass ratio] 22.5 mg/mg High 10-20 [facility] Basophil percentageOrdered B y: Mich Wheatley on 08-13-2024 Basophils/100 WBC (Bld) 0.7 % 0-1 [facility] Bilirubin Test strip Ql (U)O rdered By: Mich Wheatley on 08-13-2024 Bilirubin Ql (U) Negative Negative [facility] Bilirubin, totalOrdered By: Mich Wheatley on 08-13-2024 Bilirubin [Mass/Vol] 0.33 mg/dL 0.00-1.30 [facility] CBC W/Diff, Automatedon 07-21 Absolute Lymph 1.87 X10 3/uL Normal 0.83-4.51 [facility] Comment on above: Performed By: #### L 501.2450, L500.4050, L100.0100 #### [facility] [address] [place] [address]. [place], [address] Absolute Neut 3.6 X10 3/uL Normal 2.0-7.7 [facility] Comment on above: Performed By: #### L 501.2450, L500.4050, L100.0100 #### [facility] [address] [place], [address] Basophils/100 WBC (Bld) 0.7 % Normal 0-1 [facility] Comment on above: Performed By: #### L 501.2450, L500.4050, L100.0100 #### [facility] [address] [place], [address] Eosinophils/100 WBC (Bld) 2.2 % Normal 0-5 [facility] Comment on above: Performed By: #### L 501.2450, L500.4050, L100.0100 #### [facility] [address] [place], [address] Erythrocyte distribution width (RBC) [Ratio] 15.0 % High 11.6-14.6 [facility] Comment on above: Performed By: #### L 501.2450, L500.4050, L100.0100 #### [facility] [address] [place], [address] Hematocrit (Bld) [Volume fraction] 43.2 % Normal 37-47 [facility] Comment on above: Performed By: #### L 501.2450, L500.4050, L100.0100 #### [facility] [address] [place], [address] Hemoglobin (Bld) [Mass/Vol] 13.5 g/dL Normal 12.0-15.0 [facility] Comment on above: Performed By: #### L 501.2450, L500.4050, L100.0100 #### [facility] [address] [place], [address] IG% 0.300 Normal 0.0-0.9 [facility] Comment on above: Result Comment: IG% - Immature Granulocytes (promyelocytes, myelocytes and metamyelocytes) > 1% indicates that a LEFT SHIFT is Present. Performed By: #### L 501.2450, L500.4050, L100.0100 #### [facility] [address] [place], [address] Lymphocytes/100 WBC (Bld) 31.3 % Normal 19-41 [facility] Comment on above: Performed By: #### L 501.2450, L500.4050, L100.0100 #### [facility] [address] [place], [address] MCH (RBC) [Entitic mass] 27.7 pg Normal 27.0-32.0 [facility] Comment on above: Performed By: #### L 501.2450, L500.4050, L100.0100 #### [facility] [address] [place], [address] MCHC (RBC) [Mass/Vol] 31.3 g/dL Low 32-36 [facility] Comment on above: Performed By: #### L 501.2450, L500.4050, L100.0100 #### [facility] [address] [place], [address] MCV (RBC) [Entitic vol] 88.5 fL Normal 81-99 [facility] Comment on above: Performed By: #### L 501.2450, L500.4050, L100.0100 #### [facility] [address] [place], [address] Monocytes/100 WBC (Bld) 6.0 % Normal 0-10 [facility] Comment on above: Performed By: #### L 501.2450, L500.4050, L100.0100 #### [facility] [address] [place], [address] Neutrophils/100 WBC (Bld) 59.5 % Normal 47-70 [facility] Comment on above: Performed By: #### L 501.2450, L500.4050, L100.0100 #### [facility] [address] [place], [address] Nucleated RBC (Bld) [#/Vol] 0 10*3/uL Normal 0-5 [facility] Comment on above: Performed By: #### L 501.2450, L500.4050, L100.0100 #### [facility] [address] [place], [address] Platelet mean volume (Bld) [Entitic vol] 10.6 fL Normal 6.2-12.0 [facility] Comment on above: Performed By: #### L 501.2450, L500.4050, L100.0100 #### [facility] [address] [place], [address] Platelets (Bld) [#/Vol] 306 10*3/uL Normal 150-450 [facility] Comment on above: Performed By: #### L 501.2450, L500.4050, L100.0100 #### [facility] [address] [place], [address] RBC (Bld) [#/Vol] 4.88 10*6/uL Normal 4.2-5.4 [facility] Comment on above: Performed By: #### L 501.2450, L500.4050, L100.0100 #### [facility] [address] [place], [address] RDW SD 48.9 fl High 35.1-43.9 [facility] Comment on above: Performed By: #### L 501.2450, L500.4050, L100.0100 #### [facility] [address] [place], [address] WBC (Bld) [#/Vol] 6.0 10*3/uL Normal 4.4-11.0 [facility] Comment on above: Performed By: #### L 501.2450, L500.4050, L100.0100 #### [facility] [address] [place], [address] Carbon dioxide, total [Moles /volume] in Central venous bloodOrdered By: Mich Wheatley on 08-13-2024 CO2 [Moles/Vol] 24.2 mmol/L 21.0-32.0 [facility] Chloride assayOrdered By: Syed Wheatley on 08-13-2024 Chloride [Moles/Vol] 104 mmol/L 98-108 [facility] Comprehensive Metabolic Prof ilon 08-13-2024 Albumin [Mass/Vol] 4.0 g/dL Normal 3.4-4.8 [facility] Comment on above: Performed By: #### L 501.2450, L500.4050, L100.0100 #### [facility] [address] [place], [address] Albumin/Globulin [Mass ratio] 1.3 {ratio} Normal 0.9-2.4 [facility] Comment on above: Performed By: #### L 501.2450, L500.4050, L100.0100 #### [facility] [address] [place], [address] ALK PHOS 113 U/L High 35-104 [facility] Comment on above: Performed By: #### L 501.2450, L500.4050, L100.0100 #### [facility] [address] [place], [address] ALT [Catalytic activity/Vol] 12 U/L Normal <=34 [facility] Comment on above: Performed By: #### L 501.2450, L500.4050, L100.0100 #### [facility] [address] [place], [address] AST [Catalytic activity/Vol] 18 U/L Normal <=31 [facility] Comment on above: Performed By: #### L 501.2450, L500.4050, L100.0100 #### [facility] [address] [place], [address] Bilirubin [Mass/Vol] 0.33 mg/dL Normal 0.00-1.30 [facility] Comment on above: Performed By: #### L 501.2450, L500.4050, L100.0100 #### [facility] [address] [place], [address] BUN/CRE 22.5 RATIO High 10-20 [facility] Comment on above: Performed By: #### L 501.2450, L500.4050, L100.0100 #### [facility] [address] [place], [address] Calcium [Mass/Vol] 8.9 mg/dL Normal 7.6-11.0 [facility] Comment on above: Performed By: #### L 501.2450, L500.4050, L100.0100 #### [facility] [address] [place], [address] Chloride [Moles/Vol] 104 mmol/L Normal 98-108 [facility] Comment on above: Performed By: #### L 501.2450, L500.4050, L100.0100 #### [facility] [address] [place], [address] CO2 [Moles/Vol] 24.2 mmol/L Normal 21.0-32.0 [facility] Comment on above: Performed By: #### L 501.2450, L500.4050, L100.0100 #### [facility] [address] [place], [address] Creatinine [Mass/Vol] 0.68 mg/dL Low 0.70-1.20 [facility] Comment on above: Performed By: #### L 501.2450, L500.4050, L100.0100 #### [facility] [address] [place], [address] ECRCL 99.04 ml/min Normal 50-250 [facility] Comment on above: Performed By: #### L 501.2450, L500.4050, L100.0100 #### [facility] [address] [place], [address] GAP 12 Normal 5-15 [facility] Comment on above: Performed By: #### L 501.2450, L500.4050, L100.0100 #### [facility] [address] [place], [address] GFR/1.73 sq M.predicted among non-blacks MDRD (S/P/Bld) [Vol rate/Area] 98 mL/min/{1.73_m2} Normal >60 [facility] Comment on above: Result Comment: mL/m in/1.73m2 CKD-EPI Creatinine Equation (2020) Performed By: #### L 501.2450, L500.4050, L100.0100 #### [facility] [address] [place], [address] Globulin (S) [Mass/Vol] 3.1 g/dL Normal 2.2-4.2 [facility] Comment on above: Performed By: #### L 501.2450, L500.4050, L100.0100 #### [facility] [address] [place], [address] Glucose [Mass/Vol] 185 mg/dL High 70-99 [facility] Comment on above: Performed By: #### L 501.2450, L500.4050, L100.0100 #### [facility] [address] [place], [address] Potassium [Moles/Vol] 3.7 mmol/L Normal 3.3-5.1 [facility] Comment on above: Performed By: #### L 501.2450, L500.4050, L100.0100 #### [facility] [address] [place], [address] Sodium [Moles/Vol] 140 mmol/L Normal 133-145 [facility] Comment on above: Performed By: #### L 501.2450, L500.4050, L100.0100 #### [facility] [address] [place], [address] T PROT 7.1 g/dL Normal 5.9-8.4 [facility] Comment on above: Performed By: #### L 501.2450, L500.4050, L100.0100 #### [facility] [address] [place], [address] Urea nitrogen [Mass/Vol] 15 mg/dL Normal 4-19 [facility] Comment on above: Performed By: #### L 501.2450, L500.4050, L100.0100 #### [facility] [address] 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 [facility] Medical History Wears glasses Wears contact [...] following commands knew that she was at [facility] the year is 2024 Skin: Warm, dry, [...] diagnosis includes but not limited to cholecystitis, ch oledocholithiasis, cholelithiasis, pancreatitis. Once workup is obtained and reviewed she will be reevaluated. Patient be given IV fluids for hydration. Patient's CBC was reviewed showed no evidence leukocytosis white blood coun (more content not included)... Normal [facility] Eosinophil percentageOrdered By: Mich Wheatley on 08-13-2024 Eosinophils/100 WBC (Bld) 2.2 % 0-5 [facility] Erythrocyte distribution wid th ratioOrdered By: Mich Wheatley on 08-13-2024 Erythrocyte distribution width (RBC) [Ratio] 15.0 % High 11.6-14.6 [facility] Erythrocyte distribution wid th standard deviationOrdered By: Mich Wheatley on 08-13-2024 Erythrocyte distribution width (RBC) [Ratio] 48.9 fl High 35.1-43.9 [facility] Glomerular filtration rate ( GFR) estimation/1.73 sq m using serum, plasma, or whole bOrdered By: Mich Wheatley on 08-13-2024 GFR/1.73 sq M.predicted among non-blacks MDRD (S/P/Bld) [Vol rate/Area] 98 mL/min/{1.73_m2} >60 [facility] Comment on above: mL/min/1.73m2 CKD-EP I Creatinine Equation (2020) Hematocrit Auto (Bld) [Volum e fraction]Ordered By: Mich Wheatley on 08-13-2024 Hematocrit (Bld) [Volume fraction] 43.2 % 37-47 [facility] Hemoglobin measurementOrdere d By: Mich Wheatley on 08-13-2024 Hemoglobin (Bld) [Mass/Vol] 13.5 g/dL 12.0-15.0 [facility] Immature granulocytes/100 WB C Auto (Bld)Ordered By: Mich Wheatley on 08-13-2024 Immature granulocytes/100 WBC (Bld) 0.300 % 0.0-0.9 [facility] Comment on above: IG% - Immature Granu locytes (promyelocytes, myelocytes and metamyelocytes) > 1% indicates that a LEFT SHIFT is Present. Ketones Test strip Ql (U)Ord ered By: Mich Wheatley on 08-13-2024 Ketones Ql (U) Negative Negative [facility] Laboratory - Chemistry and C hemistry - challengeOrdered By: Mich Wheatley on 08-13-2024 AST [Catalytic activity/Vol] 18 U/L <32 [facility] Lipaseon 08-13-2024 Lipase [Catalytic activity/Vol] 37 U/L Normal 13-75 [facility] Comment on above: Result Comment: Darrion samuels note: LIPASE revised reference range effective 22. New Lipase methodology. Expected to produce lower values than the previous assay method. NEW Reference Range: 13 - 75 U/L Performed By: #### L 501.2450, L500.4050, L100.0100 ####[facility] [id number] [place], [address] Lipase measurementOrdered By : Mich Wheatley on 08-13-2024 Lipase [Catalytic activity/Vol] 37 U/L 13-75 [facility] Comment on above: Please note:LIPASE r evised reference range effective 22. New Lipase methodology. Expected to produce lower values than the previous assay method. NEW Reference Range: 13 - 75 U/L MCV (mean corpuscular volume ) determinationOrdered By: Mich Wheatley on 08-13-2024 MCV (RBC) [Entitic vol] 88.5 fL 81-99 [facility] Mean corpuscular hemoglobin (MCH) determinationOrdered By: Mich Wheatley on 08-13-2024 MCH (RBC) [Entitic mass] 27.7 pg 27.0-32.0 [facility] Mean corpuscular hemoglobin concentration (MCHC) determinationOrdered By: Mich Wheatley on 08-13-2024 MCHC (RBC) [Mass/Vol] 31.3 g/dL Low 32-36 [facility] Mean platelet volume determi nationOrdered By: Mich Wheatley on 08-13-2024 Platelet mean volume (Bld) [Entitic vol] 10.6 fL 6.2-12.0 [facility] Microscopic analysis of urin e for red blood cells (RBC)Ordered By: Mich Wheatley on 08-13-2024 Microscopic analysis of urine for red blood cells (RBC) 0 SEEN /hpf 0-5 [facility] Monocyte percentageOrdered B y: Mich Wheatley on 08-13-2024 Monocytes/100 WBC (Bld) 6.0 % 0-10 [facility] Mucus LM Ql (Urine sed)Order ed By: Mich Wheatley on 08-13-2024 Mucus Ql (Urine sed) 0 SEEN /hpf [facility] Neutrophil percentageOrdered By: Mich Wheatley on 08-13-2024 Neutrophils/100 WBC (Bld) 59.5 % 47-70 [facility] Nitrite Test strip Ql (U)Ord ered By: Mich Wheatley on 08-13-2024 Nitrite Ql (U) Negative Negative [facility] Nucleated red blood cell per centageOrdered By: Mich Wheatley on 08-13-2024 Nucleated RBC/100 WBC (Bld) [Ratio] 0 % 0-5 [facility] Platelet countOrdered By: Syed Wheatley on 08-13-2024 Platelets (Bld) [#/Vol] 306 10*3/uL 150-450 [facility] Potassium measurement (mass/ volume)Ordered By: Mich Wheatley on 08-13-2024 Potassium (Unsp spec) [Mass/Vol] 3.7 mmol/L 3.3-5.1 [facility] Protein Test strip Ql (U)Ord ered By: Mich Wheatley on 08-13-2024 Protein Ql (U) Negative Negative [facility] RBC Auto (Bld) [#/Vol]Ordere d By: Mich Wheatley on 08-13-2024 RBC (Bld) [#/Vol] 4.88 10*6/uL 4.2-5.4 [facility] Serum creatinine measurement (mass/volume)Ordered By: Mich Wheatley on 08-13-2024 Creatinine [Mass/Vol] 0.68 mg/dL Low 0.70-1.20 [facility] Serum globulin measurementOr dered By: Mich Wheatley on 08-13-2024 Globulin (S) [Mass/Vol] 3.1 g/dL 2.2-4.2 [facility] Serum glucose measurement (m ass/volume)Ordered By: Mich Wheatley on 08-13-2024 Glucose [Mass/Vol] 185 mg/dL High 70-99 [facility] Serum or plasma alanine reeder otransferase (ALT) measurementOrdered By: Mich Wheatley on 08-13-2024 ALT [Catalytic activity/Vol] 12 U/L <35 [facility] Serum or plasma albumin alisa urement (mass/volume)Ordered By: Mich Wheatley on 08-13-2024 Albumin [Mass/Vol] 4.0 g/dL 3.4-4.8 [facility] Serum or plasma albumin/glob ulin mass ratioOrdered By: Mich Wheatley on 08-13-2024 Albumin/Globulin [Mass ratio] 1.3 {ratio} 0.9-2.4 [facility] Serum or plasma alkaline janes sphatase measurementOrdered By: Mich Wheatley on 08-13-2024 ALP [Catalytic activity/Vol] 113 U/L High 35-104 [facility] Serum or plasma calcium alisa urement (mass/volume)Ordered By: Mich Wheatley on 08-13-2024 Calcium [Mass/Vol] 8.9 mg/dL 7.6-11.0 [facility] Serum or plasma urea nitroge n measurement (mass/volume)Ordered By: Mich Wheatley on 08-13-2024 Urea nitrogen [Mass/Vol] 15 mg/dL 4-19 [facility] Sodium levelOrdered By: Cassandra Wheatley on 08-13-2024 Sodium [Moles/Vol] 140 mmol/L 133-145 [facility] Squamous epithelial cells de tection in urine sediment by light microscopyOrdered By: Mich Wheatley on 08-13-2024 Epithelial cells.squamous LM Ql (Urine sed) 0-5 SEEN /hpf - [facility] Total proteinOrdered By: Mena Wheatley on 08-13-2024 Protein [Mass/Vol] 7.1 g/dL 5.9-8.4 [facility] Urinalysis, Completeon 08-13 EPI,SQUAMOUS 0-5 SEEN Normal - [facility] Comment on above: Order Comment: CLEAN CATCH Performed By: #### L 400.0001 #### [facility] [address] [place], [place], [id number] WBC 0-5 SEEN Normal 0-5 [facility] Comment on above: Order Comment: CLEAN CATCH Performed By: #### L 400.0001 #### [facility] [address] [place], [place], [id number] BACTERIA 0 SEEN Normal None Seen [facility] Comment on above: Order Comment: CLEAN CATCH Performed By: #### L 400.0001 #### [facility] [address] [place], [address] Mucus Ql (Urine sed) 0 SEEN Normal [facility] Comment on above: Order Comment: CLEAN CATCH Performed By: #### L 400.0001 #### [facility] [address] [place], [address] RBC 0 SEEN Normal 0-5 [facility] Comment on above: Order Comment: CLEAN CATCH Performed By: #### L 400.0001 #### [facility] [address] [place], [place], [id number] Urine clarityOrdered By: Mena Wheatley on 08-13-2024 Clarity (U) Sl. Cloudy Clear [facility] Urine color determinationOrd ered By: Mich Wheatley on 08-13-2024 Color (U) Yellow Yellow [facility] Urine glucose detectionOrder ed By: Mich Wheatley on 08-13-2024 Glucose Ql (U) Normal mg/dl Normal [facility] Urine leukocyte esterase det ection by dipstickOrdered By: Mich Wheatley on 08-13-2024 Leukocyte esterase Test strip Ql (U) 100 /ul High Negative [facility] Urine pHOrdered By: Mich banks on 08-13-2024 pH (U) 6.0 [pH] 5.0 - 8.0 [facility] Urine sediment bacteria coun t by microscopy (number/high power field)Ordered By: Mich Wheatley on 08-13-2024 Bacteria LM.HPF (Urine sed) [#/Area] 0 /[HPF] None Seen [facility] Urine specific gravity measu rementOrdered By: Mich Wheatley on 08-13-2024 Specific gravity (U) [Rel density] 1.010 1.002-1.030 [facility] Urine urobilinogen measureme ntOrdered By: Mich Wheatley on 08-13-2024 Urobilinogen Ql (U) Normal mg/dl Normal [facility] White blood cell (WBC) count Ordered By: Mich Wheatley on 08-13-2024 WBC (Bld) [#/Vol] 6.0 10*3/uL 4.4-11.0 [facility] White blood cell countOrdere d By: Mich Wheatley on 08-13-2024 White blood cell count 0-5 SEEN /hpf 0-5 [facility] Colonoscopy Reporton 025 Colonoscopy Report [facility] Medical Records Department [address] [place] [address] Colonoscopy Report MR#: [id number] Acct: [id number] Name: ALFONSO VERDUGO Rep #: [id number] : 1960 64 From: Maryellen Lopez MD PCP: Dr. Millie Payton MD Status:REG [facility] Patient Name: Alfonso Verdugo Procedure Date: 08/04/2024 [...] pathology results. Procedure Code(s): --- Professional --- 02051, PT, Colonoscopy, flexible; with removal of tumor(s), polyp(s), or other lesion(s) by snare technique Diagnosis Code(s): --- Professional --- Z86.010, Personal history of colonic polyps D12.4, Benign neoplasm of descending colon Z80.0, Family history of malignant neoplasm of digestive organs CPT copyright 2021 [employer]. All rights reserved. The codes documented in this report are preliminary and upon pressed or blown glass worker review may be revised to meet current compliance requirements. MD Maryellen Ramires MD 08/04/2024 8:03:27 AM This report has been signed electronically. Number of Addenda: 0 Note Initiated On: 08/04/2024 7:27 AM 08/04/24802 Date Maryellen Lopez MD Cosigner Signature: Date (if indicated) CC: Dr. Millie Payton MD; Dr. Maryellen Lopez MD Date Dictated: 08/04/24726 Date Transcribed: Professor Of Industrial Technology: BERTRAM Signed [facility] MR/POSTOP.Tali 08-04-2024 MR/POSTOP.[facility] Medical Records Department [address] [place] [address] Anesthesia Postop Eval I 08/04/24809 MR#: [id number] Acct: [id number] Name: ALFONSO VERDUGO PASCALE Rep #: [id number] : 1960 64 From: Juancarlos Wheatley PCP: Dr. Millie Payton MD Status:[facility] Y Race: C Location: [place] [address] Anesthesia: Postop Eval I Current Vital Signs [...] Date Juancarlos Montanez Signature: Date CC: Signed Normal [facility] MR/[id number] 08-04-2024 [facility] Medical Records Department [address] [place] [address] Anesthesia Postop Eval II 08/04/24 1228 MR#: [id number] Acct: [id number] Name: ALFONSO VERDUGO PASCALE Rep #: [id number] : 1960 64 From: Kris Oviedo MD PCP: Dr. Millie Payton MD Status:[facility] Y Race: C Location: [place] Anesthesia Postop [...] Anesthesia Complication: No 08/04/24 1228 Date Kris Montanez Signature: Date CC: Signed Normal [facility] Surgery Specimen Level Latisha 08-04-2024 Surgery Specimen Level IV Patient Age/Sex Location Account Attending Physician ALFONSO VERDUGO 64/F EN [id number] Dr. Maryellen Lopez MD Specimen: [id number] Received: 08/04/24 Status: CASS Glez Num: [id number] Spec Type: COLON BX Subm Dr: Dr. [...] totally submitted in one cassette. Anita 08/04/2024 [facility]:[address] Patient Age/Sex Location Account Attending Physician ALFONSO VERDUGO 64/F EN [id number] Dr. Maryellen Lopez MD Signed (signature on file) Dr. Minerva Dean MD 08/12/24 0850 Normal [facility] Comment on above: Performed By: #### P SUIV #### [facility] [address] [place], [place], [id number] /PATSong 07-31-2024 MR/PAT.[facility] Medical Records Department [address] [place] [address] PAT - Anesthesia 07/31/24 1114 MR#: [id number] Acct: [id number] Name: ALFONSO VERDUGO Rep #: [id number] : 1960 64 From: Juan Georges MD PCP: Dr. 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 History - change house attendant Hx Hospitalization No 07/31/24 10:35 Any Problems [...] take am of surgery PONV PONV - change house attendant: PONV - change house attendant Female Yes 07/31/24 10:35 HX of Motion [...] 05/30/24 11:34 Respiratory Assessment Respiratory Assessment - change house attendant: Respiratory Tract Infection Hx - change house attendant Hx Respiratory Tract Infection No 07/31/24 10:35 STOP Sleep Apnea STOP Sleep Apnea - change house attendant: STOP Sleep Apnea - change house attendant Hx Hypertension No 07/31/24 10:35 Hx Sleep [...] Tobacco Use History Tobacco Use History - change house attendant: Tobacco Use History - change house attendant Tobacco Use Smoking Status Never smoker 07/31/24 10:35 Hx Tobacco Use No 07/31/24 10:35 Years Smoking Packs Smoked per Day Smoking Cessation Date was within the last 15 years Hx Smoking Cessation Date Hx Smoking Cessation Counseling Hematologic Medial History Hematologic Hx - change house attendant: 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 Normal [facility] [employer] Office Visit Reporton 05-30-2024 [employer] Office Visit Report [facility] [address], [address] [place] [address] OFFICE VISIT Date of Service: 05/30/24 MR#: [id number] Acct: [id number] Name: ALFONSO VERDUGO Rep #: [id number] : 1960 Provider: Dr. Rose Marie florez MD Age/Sex: 64/F [place] [facility] [place]: Signed Intake Vital Signs 04/08/24 09:36 04/30/24 08:41 05/30/24 11:32 05/30/24 11:34 Height 5 ft 6 in 5 ft 6 in 5 ft 6 in 5 ft 6 in Weight: 209 lb 6 oz 211 lb BMI 33.7 34.0 BP 130/82 H 125/84 H Pulse 77 71 Intake Visit Reasons: 3 M FU Community Recreation Coordinator Required: No Is patient in pain?: No Allergies Penicillins Adverse Reaction (Verified 04/30/24 08:34) Rash Sulfa (Sulfonamide Antibiotics) Adverse Reaction (Verified 04/30/24 08:34) Rash Medications ???Medication ???Instructions ???Recorded ???Confirmed ???Type levothyroxine 88 mcg tablet 88 mcg PO DAILY 10/11/23 05/30/24 History phentermine 15 mg-topiramate ER 92 1 cap PO Q24H #30 caps 05/30/24 05/30/24 Rx mg capsule,ext.[id number] multphas (Qsymia) venlafaxine 75 mg capsule,extended 75 [...] Bth Weight Gen Labor Lgth Anesthesia Del Locat Provider FOB Unknown Vasyl-1989 Unknown Yobany-1993 HPI [...] S/P gastric surgery: Status: Acute Comment: sleeve 2012. lost 55lbs weight regain 3 years after. discussed referral for bariatric revision if desired, consider gaviota en y or consult (more content not included)... Normal [facility] Office Visit Reporton 2024 Office Visit Report [facility] [address] [place] [address] OFFICE VISIT Date of Service: 04/30/24 MR#: [id number] Acct: [id number] Patient: ALFONSO VERDUGO Rep #: [id number] : 1960 Provider: Dr. Rose Marie florez MD Age/Sex: 64/F [place] [facility] Status: Signed Intake Vital Signs 04/08/24 09:36 04/30/24 08:41 Height 5 ft 6 in 5 ft 6 in Weight: 209 lb 6 oz BMI 33.7 BP 130/82 H Pulse 77 Intake Visit Reasons: 1 M med check Chief Complaint: BP/HR/Weight Check Community Recreation Coordinator Required: No Is patient in pain?: No Allergies Penicillins Adverse Reaction (Verified 04/30/24 08:34) Rash Sulfa (Sulfonamide Antibiotics) Adverse Reaction (Verified 04/30/24 08:34) Rash Medications ???Medication ???Instructions ???Recorded ???Confirmed ???Type levothyroxine 88 mcg tablet 88 mcg PO DAILY 10/11/23 04/30/24 History phentermine 15 mg-topiramate ER 92 1 cap PO Q24H #30 caps 03/05/24 04/30/24 Rx mg capsule,ext.[id number] multphas (Qsymia) venlafaxine 75 mg capsule,extended 75 [...] Montanez Signature: Date (if applicable) CC: Normal [facility] Office Visit Reporton 2024 Office Visit Report [facility] [address] [place] [address] OFFICE VISIT Date of Service: 04/08/24 MR#: [id number] Acct: [id number] Patient: ALFONSO VERDUGO Rep #: [id number] : 1960 Provider: ARSALAN Mclean Age/Sex: 63/F [place] [facility] [place]: Signed Intake Vital Signs 03/05/24 09:25 04/03/24 13:30 04/08/24 09:36 Height 5 ft 6 in 5 ft 6 in 5 ft 6 in Weight: 210 lb 4 oz BMI 33.9 BP 133/84 H Pulse 67 Pulse Source Monitor Intake Visit Reasons: 1 M weigh in med check Chief Complaint: BP/HR/Weight Check Community Recreation Coordinator Required: No Is patient in pain?: No [...] Q24H #30 caps 03/05/24 04/08/24 Rx mg capsule,ext.[id number] multphas (Qsymia) Post menopausal: No Patient : No Have you fallen in the past year?: No Nurse's Note: Patient is requesting refill sent to [facility] in [place]. She is scheduling 2 NVs and then [...] Montanez Signature: Date (if applicable) CC: Normal [facility] [employer] Office Visit Reporton 03-05-2024 [employer] Office Visit Report [facility] [address], [address] [place] [address] OFFICE VISIT Date of Service: 03/05/24 MR#: [id number] Acct: [id number] Name: ALFONSO VERDUGO PASCALE Rep #: [id number] : 1960 Provider: ARSALAN Mclean Age/Sex: 63/F [place] [facility] [place]: Signed Intake Vital Signs 01/23/24 10:12 03/05/24 09:19 03/05/24 09:25 Height 5 ft 6 in 5 ft 6 in 5 ft 6 in Weight: 207 lb 6 oz BMI 33.5 BP 115/75 Pulse 78 Intake Visit Reasons: Weight management Community Recreation Coordinator Required: No Is patient in pain?: No [...] Q24H #30 caps 03/05/24 03/05/24 Rx mg capsule,ext.[id number] multphas (Qsymia) Last Menstrual Period: 02/19/11 Have [...] Locatn Provider FOB Unknown Vasyl-1989 Unknown Yobany-1993 [facility] Weight management Details: ALFONSO VERDUGO is a [...] Other obesity: Status: Acute Comment: [facility], 40-50 net carb nutritional plan. Using Lose it flako. Has a goal to lose another 25 in the next 6 months. Incorporate more vegetables; lean meats; protein. Medication plan: Qsymia-continue; continue current dosing; tolerati (more content not included)... Normal [facility] [employer] Office Visit Reporton 01-23-2024 [employer]icated [employer] Office Visit Report [facility] [address], [address] [place] [address] OFFICE VISIT Date of Service: 01/23/24 MR#: [id number] Acct: [id number] Name: ALFONSO VERDUGO Rep #: [id number] : 1960 Provider: ARSALAN Mclean Age/Sex: 63/F [place] [facility] [place]: Signed Intake Vital Signs 10/11/23 08:49 12/11/23 13:37 01/23/24 10:08 01/23/24 10:12 Height 5 ft 6 in 5 ft 6 in 5 ft 6 in 5 ft 6 in Weight: 207 lb BMI 33.4 BP 137/84 H Pulse 92 Intake Visit Reasons: 3 M WM Chief Complaint: 3 m f/u Community Recreation Coordinator Required: No Is patient in pain?: No [...] Q24H #30 caps 01/23/24 01/23/24 Rx mg capsule,ext.[id number] multphas (Qsymia) Last Menstrual Period: 02/19/11 PFSH [...] Other obesity: Status: Acute Comment: Nutrition plan: [facility] 5480-4030, 40-50 net carb nutritional plan. Using Lose it flako. Medication plan: Qsymia; continue current dosing; tolerating well with no side effects. Discussed once she reaches her goals potentially titrating down. control- postmenopausal. Behavior intervention: recommend daily journal of food intake with electronic me (more content not included)... Normal [facility] 25(OH)D3 SerPl-Aron 2023 25-hydroxyvitamin D3 [Mass/Vol] 21.8 ng/mL Low 31.0-80.0 [facility] Comment on above: Order Comment: Specbeverly ahn Type: BLOOD SPECIMEN Ordering Facility: [facility] Address: [address] [place] [address] Result Comment: Clas sification of 25 [place] Vitamin D status: Deficiency/Insufficiency: < or = 30 ng/ml. Sufficiency/Optimal Levels: 31-80 ng/mL Toxicity: > 100 ng/mL. Test performed by chemiluminescent immunoassay. Performed By: #### 1 989-3 #### [facility] CLIA [id number] [address] [place] [address] [place] CBC W Auto Differential pane l (Bld)on 12-28-2023 Basophils (Bld) [#/Vol] 0.04 10*3/uL Normal <0.11 [facility] Comment on above: Order Comment: Saskia ahn Type: BLOOD SPECIMEN Ordering Facility: [facility] Address: [address] [place] [address] Performed By: #### 5 7021-8 #### [facility] CLIA [id number] [address] [place] [address] [place] Basophils/100 WBC (Bld) 0.8 % Normal [facility] Comment on above: Order Comment: [facility] Type: BLOOD SPECIMEN Ordering Facility: [facility] Address: [address] [place] [address] Performed By: #### 5 7021-8 #### [facility] CLIA [id number] [address] [place] [address] [place] Differential cell count method Nom (Bld) Auto Normal [facility] Comment on above: Order Comment: Speci men Type: BLOOD SPECIMEN Ordering Facility: [facility] Address: [address] [place] [address] Performed By: #### 5 7021-8 #### [facility] CLIA [id number] [address] [place] [address] [place] Eosinophils (Bld) [#/Vol] 0.17 10*3/uL Normal <0.46 [facility] Comment on above: Order Comment: Speci men Type: BLOOD SPECIMEN Ordering Facility: [facility] Address: [address] [place] [address] Performed By: #### 5 7021-8 #### [facility] CLIA [id number] [address] [place] [address] [place] Eosinophils/100 WBC (Bld) 3.5 % Normal [facility] Comment on above: Order Comment: Speci men Type: BLOOD SPECIMEN Ordering Facility: [facility] Address: [address] [place] [address] Performed By: #### 5 7021-8 #### [facility] CLIA [id number] [address] [place] [address] [place] Erythrocyte distribution width (RBC) [Ratio] 15.0 % Normal 11.5-15.0 [facility] Comment on above: Order Comment: Speci men Type: BLOOD SPECIMEN Ordering Facility: [facility] Address: [address] [place] [address] Performed By: #### 5 7021-8 #### [facility] CLIA [id number] [address] [place] [address] [place] Hematocrit (Bld) [Volume fraction] 40.4 % Normal 36.0-46.0 [facility] Comment on above: Order Comment: Speci men Type: BLOOD SPECIMEN Ordering Facility: [facility] Address: [address] [place] [address] Performed By: #### 5 7021-8 #### [facility] CLIA [id number] [address] [place] [address] [place] Hemoglobin (Bld) [Mass/Vol] 12.8 g/dL Normal 11.5-15.5 [facility] Comment on above: Order Comment: Speci men Type: BLOOD SPECIMEN Ordering Facility: [facility] Address: [address] [place] [address] Performed By: #### 5 7021-8 #### [facility] CLIA [id number] [address] [place] [address] [place] Immature granulocytes (Bld) [#/Vol] 10*3/uL Normal <0.10 [facility] Comment on above: Order Comment: Speci men Type: BLOOD SPECIMEN Ordering Facility: [facility] Address: [address] [place] [address] Performed By: #### 5 7021-8 #### [facility] CLIA [id number] [address] [place] [address] [place] Immature granulocytes/100 WBC (Bld) 0.2 % Normal [facility] Comment on above: Order Comment: Speci men Type: BLOOD SPECIMEN Ordering Facility: [facility] Address: [address] [place] [address] Performed By: #### 5 7021-8 #### [facility] CLIA [id number] [address] [place] [address] [place] Lymphocytes (Bld) [#/Vol] 1.82 10*3/uL Normal 1.00-4.00 [facility] Comment on above: Order Comment: Speci men Type: BLOOD SPECIMEN Ordering Facility: [facility] Address: [address] [place] [address] Performed By: #### 5 7021-8 #### [facility] CLIA [id number] [address] [place] [address] [place] Lymphocytes/100 WBC (Bld) 37.4 % Normal [facility] Comment on above: Order Comment: Speci men Type: BLOOD SPECIMEN Ordering Facility: [facility] Address: [address] [place] [address] Performed By: #### 5 7021-8 #### [facility] CLIA [id number] [address] [place] [address] [place] MCH (RBC) [Entitic mass] 27.7 pg Normal 26.0-34.0 [facility] Comment on above: Order Comment: Speci men Type: BLOOD SPECIMEN Ordering Facility: [facility] Address: [address] [place] [address] Performed By: #### 5 7021-8 #### [facility] CLIA [id number] [address] [place] [address] [place] MCHC (RBC) [Mass/Vol] 31.7 g/dL Normal 30.5-36.0 [facility] Comment on above: Order Comment: Speci men Type: BLOOD SPECIMEN Ordering Facility: [facility] Address: [address] [place] [address] Performed By: #### 5 7021-8 #### [facility] CLIA [id number] [address] [place] [address] [place] MCV (RBC) [Entitic vol] 87.4 fL Normal 80.0-100.0 [facility] Comment on above: Order Comment: Speci men Type: BLOOD SPECIMEN Ordering Facility: [facility] Address: [address] [place] [address] Performed By: #### 5 7021-8 #### [facility] CLIA [id number] [address] [place] [address] [place] Monocytes (Bld) [#/Vol] 0.31 10*3/uL Normal <0.87 [facility] Comment on above: Order Comment: Speci men Type: BLOOD SPECIMEN Ordering Facility: [facility] Address: [address] [place] [address] Performed By: #### 5 7021-8 #### [facility] CLIA [id number] [address] [place] [address] [place] Monocytes/100 WBC (Bld) 6.4 % Normal [facility] Comment on above: Order Comment: Speci men Type: BLOOD SPECIMEN Ordering Facility: [facility] Address: [address] [place] [address] Performed By: #### 5 7021-8 #### [facility] CLIA [id number] [address] [place] [address] [place] Neutrophils (Bld) [#/Vol] 2.51 10*3/uL Normal 1.45-7.50 [facility] Comment on above: Order Comment: Speci men Type: BLOOD SPECIMEN Ordering Facility: [facility] Address: [address] [place] [address] Performed By: #### 5 7021-8 #### [facility] CLIA [id number] [address] [place] [address] [place] Neutrophils/100 WBC (Bld) 51.7 % Normal [facility] Comment on above: Order Comment: Speci men Type: BLOOD SPECIMEN Ordering Facility: [facility] Address: [address] [place] [address] Performed By: #### 5 7021-8 #### [facility] CLIA [id number] [address] [place] [address] [place] Nucleated RBC (Bld) [#/Vol] 10*3/uL Normal <0.01 [facility] Comment on above: Order Comment: Speci men Type: BLOOD SPECIMEN Ordering Facility: [facility] Address: [address] [place] [address] Performed By: #### 5 7021-8 #### [facility] CLIA [id number] [address] [place] [address] [place] Nucleated RBC/100 WBC (Bld) [Ratio] 0.0 /100 WBC Normal [facility] Comment on above: Order Comment: Speci men Type: BLOOD SPECIMEN Ordering Facility: [facility] Address: [address] [place] [address] Performed By: #### 5 7021-8 #### [facility] CLIA [id number] [address] [place] [address] [place] Platelet mean volume (Bld) [Entitic vol] 10.4 fL Normal 9.0-12.7 [facility] Comment on above: Order Comment: Speci men Type: BLOOD SPECIMEN Ordering Facility: [facility] Address: [address] [place] [address] Performed By: #### 5 7021-8 #### [facility] CLIA [id number] [address] [place] [address] [place] Platelets (Bld) [#/Vol] 310 10*3/uL Normal 150-400 [facility] Comment on above: Order Comment: Speci men Type: BLOOD SPECIMEN Ordering Facility: [facility] Address: [address] [place] [address] Performed By: #### 5 7021-8 #### [facility] CLIA [id number] [address] [place] [address] [place] RBC (Bld) [#/Vol] 4.62 10*6/uL Normal 3.90-5.20 [facility] Comment on above: Order Comment: Speci men Type: BLOOD SPECIMEN Ordering Facility: [facility] Address: [address] [place] [address] Performed By: #### 5 7021-8 #### [facility] CLIA [id number] [address] [place] [address] [place] WBC (Bld) [#/Vol] 4.86 10*3/uL Normal 3.70-11.00 [facility] Comment on above: Order Comment: Speci men Type: BLOOD SPECIMEN Ordering Facility: [facility] Address: [address] [place] [address] Performed By: #### 5 7021-8 #### [facility] CLIA [id number] [address] [place] [address] [place] Comprehensive metabolic 2000 panelon 12-28-2023 Albumin [Mass/Vol] 4.2 g/dL Normal 3.9-4.9 [facility] Comment on above: Order Comment: Speci men Type: BLOOD SPECIMEN Ordering Facility: [facility] Address: [address] [place] [address] Performed By: #### 2 4323-8 #### [facility] CLIA [id number] [address] [place] [address] [place] ALP [Catalytic activity/Vol] 123 U/L Normal 34-123 [facility] Comment on above: Order Comment: Speci men Type: BLOOD SPECIMEN Ordering Facility: [facility] Address: [address] [place] [address] Performed By: #### 2 4323-8 #### [facility] CLIA [id number] [address] [place] [address] [place] ALT [Catalytic activity/Vol] 10 U/L Normal 7-38 [facility] Comment on above: Order Comment: Speci men Type: BLOOD SPECIMEN Ordering Facility: [facility] Address: [address] [place] [address] Performed By: #### 2 4323-8 #### [facility] CLIA [id number] [address] [place] [address] [place] Anion gap [Moles/Vol] 12 mmol/L Normal 8-15 [facility] Comment on above: Order Comment: Speci men Type: BLOOD SPECIMEN Ordering Facility: [facility] Address: [address] [place] [address] Performed By: #### 2 4323-8 #### [facility] CLIA [id number] [address] [place] [address] [place] AST [Catalytic activity/Vol] 11 U/L Low 13-35 [facility] Comment on above: Order Comment: Speci men Type: BLOOD SPECIMEN Ordering Facility: [facility] Address: [address] [place] [address] Performed By: #### 2 4323-8 #### [facility] CLIA [id number] [address] [place] [address] [place] Bilirubin [Mass/Vol] 0.5 mg/dL Normal 0.2-1.3 [facility] Comment on above: Order Comment: Speci men Type: BLOOD SPECIMEN Ordering Facility: [facility] Address: [address] [place] [address] Performed By: #### 2 4323-8 #### [facility] CLIA [id number] [address] [place] [address] [place] Calcium [Mass/Vol] 9.2 mg/dL Normal 8.5-10.2 [facility] Comment on above: Order Comment: Speci men Type: BLOOD SPECIMEN Ordering Facility: [facility] Address: [address] [place] [address] Performed By: #### 2 4323-8 #### [facility] CLIA [id number] [address] [place] [address] [place] Chloride [Moles/Vol] 106 mmol/L Normal 98-107 [facility] Comment on above: Order Comment: Speci men Type: BLOOD SPECIMEN Ordering Facility: [facility] Address: [address] [place] [address] Performed By: #### 2 4323-8 #### [facility] CLIA [id number] [address] [place] [address] [place] CO2 [Moles/Vol] 23 mmol/L Normal 22-30 [facility] Comment on above: Order Comment: Saskia ahn Type: BLOOD SPECIMEN Ordering Facility: [facility] Address: [address] [place] [address] Performed By: #### 2 4323-8 #### [facility] CLIA [id number] [address] [place] [address] [place] Creatinine [Mass/Vol] 0.70 mg/dL Normal 0.58-0.96 [facility] Comment on above: Order Comment: Saskia ahn Type: BLOOD SPECIMEN Ordering Facility: [facility] Address: [address] [place] [address] Performed By: #### 2 4323-8 #### [facility] CLIA [id number] [address] [place] [address] [place] Creatinine and Glomerular filtration rate.predicted panel (S/P/Bld) 99 mL/min/1.73m??? Normal >=60 [facility] Comment on above: Order Comment: Saskia ahn Type: BLOOD SPECIMEN Ordering Facility: [facility] Address: [address] [place] [address] Result Comment: Lakia mated Glomerular Filtration Rate [...] GFR. Performed By: #### 2 4323-8 #### [facility] CLIA [id number] [address] [place] [address] [place] Glucose [Mass/Vol] 97 mg/dL Normal 74-99 [facility] Comment on above: Order Comment: Saskia ahn Type: BLOOD SPECIMEN Ordering Facility: [facility] Address: [address] [place], [place] [address] Result Comment: The [place] Diabetes Association (ADA) provides guidance for cutoff [...] Standards of Medical Care in Diabetes 2016, [place] [employer] Association. Diabetes Care. 2016.39(Suppl 1). Performed By: #### 2 4323-8 #### [facility] CLIA [id number] [address] [place] [address] [place] Potassium [Moles/Vol] 3.9 mmol/L Normal 3.7-5.1 [facility] Comment on above: Order Comment: Speci men Type: BLOOD SPECIMEN Ordering Facility: [facility] Address: [address] [place] [address] Performed By: #### 2 4323-8 #### [facility] [id number] [address] [place] [address] [place] Protein [Mass/Vol] 7.0 g/dL Normal 6.3-8.0 [facility] Comment on above: Order Comment: Speci men Type: BLOOD SPECIMEN Ordering Facility: [facility] Address: [address] [place] [address] Performed By: #### 2 4323-8 #### [facility] CLIA [id number] [address] [place] [address] [place] Sodium [Moles/Vol] 141 mmol/L Normal 136-144 [facility] Comment on above: Order Comment: Speci men Type: BLOOD SPECIMEN Ordering Facility: [facility] Address: [address] [place] [address] Performed By: #### 2 4323-8 #### [facility] CLIA [id number] [address] [place] [address] [place] Urea nitrogen [Mass/Vol] 16 mg/dL Normal 7-21 [facility] Comment on above: Order Comment: Speci men Type: BLOOD SPECIMEN Ordering Facility: [facility] Address: [address] [place] [address] Performed By: #### 2 4323-8 #### [facility] CLIA [id number] [address] [place] [address] [place] Lipid 1996 panelon 4 Cholesterol [Mass/Vol] 206 mg/dL High <200 [facility] Comment on above: Order Comment: Speci men Type: BLOOD SPECIMEN Ordering Facility: [facility] Address: [address] [place] [address] Result Comment: <200 mg/dL, Desirable 200-239 mg/dL, Borderline high >239 mg/dL, High Performed By: #### 2 4331-1 #### [facility] CLIA [id number] [address] [place] [address] [place] [facility] CLIA [id number] [address] [place] [address] [place] #### 3016-3 #### [facility] CLIA [id number] [facility] [place] [address] [place] Cholesterol in HDL [Mass/Vol] 57 mg/dL Normal >39 [facility] Comment on above: Order Comment: Speci men Type: BLOOD SPECIMEN Ordering Facility: [facility] Address: [address] [place] [address] Result Comment: 40-5 9 mg/dL, Acceptable >59 mg/dL, High: Negative risk factor for coronary heart disease <40 mg/dL, Low: Positive risk factor for coronary heart disease Performed By: #### 2 4331-1 #### [facility] CLIA [id number] [address] [place] [id number] [place] [facility] CLIA [id number] [address] [place] [address] [place] #### 3016-3 #### [facility] CLIA [id number] [address] [place] [address] [place] Cholesterol in LDL [Mass/Vol] 135 mg/dL High <100 [facility] Comment on above: Order Comment: Speci men Type: BLOOD SPECIMEN Ordering Facility: [facility] Address: [address] [place] [address], [place] [address] Result Comment: <100 mg/dL, Optimal 100-129 mg/dL, Near optimal/above optimal 130-159 mg/dL, Borderline high 160-189 mg/dL, High >189 mg/dL, Very high Secondary prevention optimal LDL Cholesterol levels are recommended to be < 70 mg/dL Performed By: #### 2 4331-1 #### [facility] CLIA [id number] [address] [place] [id number] [place] [facility] CLIA [id number] [address] [place] [address] [place] #### 3016-3 #### [facility] CLIA [id number] [address] [place] [address] [place] Cholesterol in LDL/Cholesterol in HDL [Mass ratio] 2.37 {ratio} Normal <2.54 [facility] Comment on above: Order Comment: Speci men Type: BLOOD SPECIMEN Ordering Facility: [facility] Address: [address] [place] [address], [place] [address] Result Comment: Dany patel: 1. National Cholesterol Education Program ATP III Guideline At-A-Glance Quick Desk Reference: National Heart, Lung, and Blood Wiggins. National Institutes of Health. 2001: NIH Publication No. 01-3305. 2. An International Atherosclerosis Society position paper: global recommendations for the management of dyslipidemia: executive summary, Atherosclerosis. 2014: 232(2):410-413. Performed By: #### 2 4331-1 #### [facility] CLIA [id number] [address] [place] [address] [place] [facility] CLIA [id number] [address] [place] [address] [place] #### 3016-3 #### [facility] CLIA [id number] [address] [place] [id number] [place] Cholesterol in VLDL [Mass/Vol] 14 mg/dL Normal <30 [facility] Comment on above: Order Comment: Saskia ahn Type: BLOOD SPECIMEN Ordering Facility: [facility] Address: [address] [place] [address] Performed By: #### 2 4331-1 #### [facility] CLIA [id number] [address] [place] [address] [place] [facility] CLIA [id number] [address] [place] [address] [place] #### 3016-3 #### [facility] CLIA [id number] [address] [place] [address] [place] Cholesterol non HDL [Mass/Vol] 149 mg/dL High <130 [facility] Comment on above: Order Comment: Saskia ahn Type: BLOOD SPECIMEN Ordering Facility: [facility] Address: [address] [place] [address] Result Comment: <130 mg/dL, Optimal 130-159 mg/dL, Near optimal/above optimal 160-189 mg/dL, Borderline high 190-219 mg/dL, High >219 mg/dL, Very high Secondary prevention optimal non HDL Cholesterol levels are recommended to be <100 mg/dL Performed By: #### 2 4331-1 #### [facility] CLIA [id number] [address] [place] [address] [place] [facility] CLIA [id number] [address] [place] [address] [place] #### 3016-3 #### [facility] CLIA [id number] [address] [place] [address] [place] Cholesterol.total/Elina sterol in HDL [Mass ratio] 3.61 {ratio} Normal <5.10 [facility] Comment on above: Order Comment: Speci men Type: BLOOD SPECIMEN Ordering Facility: [facility] Address: [address] [place] [address] Performed By: #### 2 4331-1 #### [facility] CLIA [id number] [facility] [place] [address] [place] [facility] CLIA [id number] [address] [place] [address] [place] #### 3016-3 #### [facility] CLIA [id number] [address] [place] [address] [place] FASTING TIME 12 hrs Normal [facility] Comment on above: Order Comment: Speci men Type: BLOOD SPECIMEN Ordering Facility: [facility] Address: [address] [place] [address] Performed By: #### 2 4331-1 #### [facility] CLIA [id number] [address] [place] [address] [place] [facility] CLIA [id number] [address] [place] [address] [place] #### 3016-3 #### [facility] CLIA [id number] [address] [place] [address] [place] Triglyceride [Mass/Vol] 70 mg/dL Normal <150 [facility] Comment on above: Order Comment: Speci men Type: BLOOD SPECIMEN Ordering Facility: [facility] Address: [address] [place] [address] Result Comment: <150 mg/dL, Normal 150-199 mg/dL, Borderline high 200-499 mg/dL, High >499 mg/dL, Very high Performed By: #### 2 4331-1 #### [facility] CLIA [id number] [address] [place] [address] [place] [facility] CLIA [id number] [address] [place] [address] [place] [place] #### 3016-3 #### [facility] CLIA [id number] [address] [place] [address] [place] TSH SerPl-aCncon 12-28-2023 TSH Qn 2.900 m[IU]/L Normal 0.270-4.200 [facility] Comment on above: Order Comment: Speci men Type: BLOOD SPECIMEN Ordering Facility: [facility] Address: [address] [place] [address] Performed By: #### 2 4331-1 #### [facility] CLIA [id number] [address] [place] [address] [place] [facility] [id number] [address] [place] [address] [place] #### 3016-3 #### [facility] CLIA [id number] [address] [place] [address] [place] [employer] Office Visit Reporton 12-11-2023 [employer] Office Visit Report [facility] [address], [address] [place] [address] OFFICE VISIT Date of Service: 12/11/23 MR#: [id number] Acct: [id number] Name: PRASHANT VERDUGOCY PASCALE Rep #: [id number] : 1960 Provider: Dr. Rose Marie florez MD Age/Sex: 63/F [place] [facility] [place]: Signed Intake Vital Signs 10/11/23 08:49 12/11/23 13:37 Height 5 ft 6 in 5 ft 6 in BP 127/82 H Intake Visit Reasons: Colposcopy Chief Complaint: colposcopy Community Recreation Coordinator Required: No Is patient in pain?: No [...] Q24H #30 caps 10/26/23 12/11/23 Rx mg capsule,ext.smyqdjq35gw multphas (Qsymia) Is last menstrual period known: [...] Codes Colposcopy - Cervix+upper/adj vag+bx cervix: Yes (10193) Assessment and Plan Assessment and Plan (1) Abnormal Pap smear of cervix: Status: Acute Comment: repeat pap and hpv 2023- ascus hpv pos, biopsies done at [facility] 12/12. Orders: Orders Colposcopy Today R87.619 - Unspecified abnormal cytological findings in specimens from cervix uteri 12/11/23 1415 Date Rose Marie Ugarte (more content not included)... Normal [facility] SCRN MAMM (CAD)W/PRISCILA BILATo n 12-11-2023 SCRN MAMM (CAD)W/PRISCILA BILAT [facility] Imaging Services [address] [place] [address] SCRN MAMM (CAD)W/PRISCILA BILAT MR#: [id number] Acct: [id number] Name: ALFONSO VERDUGO Rep #: [id number] : 1960 F 63 From: Thaddeus chaudhry MD PCP: Dr. Millie Payton MD Status: [facility] Study: SCRN MAMM (CAD)W/PRISCILA BILAT Date of Exam: 11/20 04/14 Exam# [id number] Ordering Dr: Rose Marie Brush [id number] MAMMOGRAPHY - BILATERAL SCREENING REASON FOR EXAM: [...] delay biopsy of a clinically suspicious abnormality. [id number] Electronically Signed: Thaddeus May MD at 14:12 EDT , CC: Dr. Millie Payton MD; Dr. 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 Rose Marie Brush MD Specimen: [id number] Received: 12/12/23 Status: CASS Glez Num: [id number] Spec Type: CERV Subm Dr: Dr. Rose Marie Brush MD HEADER OPERATION: Colposcopy PRE-OP DIAGNOSIS: Abnormal pap smear of cervix/ HPV test positive TISSUE SUBMITTED: A- 6o'clock, B- 8o'clock MICROSCOPIC DIAGNOSIS A. Cervix, 6o'clock, biopsy: Rare glandular mucosa present. B. Cervix, 8o'clock, biopsy: Minimal chronic inflammation. HPV change present See comment. AM.mr 12/13/2023 COMMENT B. Immunohistochemistry ([id number]) for surrogate HPV marker (p16) shows weak, [...] specimen is totally submitted in one cassette. SJ.mr 12/12/2023 TC:3 CPT:84835n1 Patient Age/Sex Location Account Attending Physician ALFONSO VERDUGO 63/F [facility] [id number] Dr. Rose Marie Brush MD Signed (signature on file) Dr. Aly Lundberg DO 12/14/23 1418 Normal [facility] Comment on above: Performed By: #### P CRESENCIO #### [facility] [address] [place], [address] p16 (initial)on 12-11-2023 p16 (initial) --- Patient Age/Sex Location Account Attending Physician ALFONSO VERDUGO 63/F [facility] [id number] Dr. Rose Marie Brush MD Specimen: [id number] Received: 12/14/23 Status: CASS Glez Num: [id number] Spec Type: IMMUNO Subm Dr: Dr. Rose Marie Brush MD PHYSICIAN INSTITUTION [place] [address] SPECIMEN INFORMATION: Tissue Source: B- 8o'clock Clinical Info: Abnormal pap smear of cervix, HPV positive test Specimen Number: [id number] CPT code: 53316,78822 METHODOLOGY: Deparaffinized sections of prefer/formalin-fixed tissue or [...] developed and their performance characteristics determined by [facility]. They may not have been cleared [...] Signed (signature on file) Dr. Aly Lundberg, DO 12/14/23 1458 Normal [facility] Comment on above: Performed By: #### P P16 ####[facility] [address] [place], [address] PAP IG HPV APTIMA 16/18,45on 10-17-2023 ADEQ Comment Normal . [facility] Comment on above: Order Comment: Speci men Comment: [id number] Comment: Source.............Cervix;EndocervixSpecimen Comment: Other..............Post MenopausalSpecimen Comment: No. of containers..01 ThinPrep Vial Result Comment: Sati sfactory for evaluation. Endocervical and/or squamous metaplastic cells (endocervical component) are present. Performed By: #### L 7400.0280 ####[facility] [address] [place], [place], [id number] COMM . Normal . [facility] Comment on above: Order Comment: Speci men Comment: [id number] Comment: Source.............Cervix;EndocervixSpecimen Comment: Other..............Post MenopausalSpecimen Comment: No. of containers..01 ThinPrep Vial Performed By: #### L 7400.0280 ####[facility] [address] [place], [place], [id number] COMMENT Comment Normal . [facility] Comment on above: Order Comment: Speci men Comment: [id number] Comment: Source.............Cervix;EndocervixSpecimen Comment: Other..............Post MenopausalSpecimen Comment: No. of containers..01 ThinPrep Vial Result Comment: This liquid based ThinPrep(R) pap test was screened with the use of an image guided system. Performed By: #### L 7400.0280 ####[facility] [address] [place], [place], [id number] DIAG Comment Abnormal . [facility] Comment on above: Order Comment: Speci men Comment: [id number] Comment: Source.............Cervix;EndocervixSpecimen Comment: Other..............Post MenopausalSpecimen Comment: No. of containers..01 ThinPrep Vial Result Comment: EPIT HELIAL CELL ABNORMALITY. ATYPICAL SQUAMOUS CELLS OF UNDETERMINED SIGNIFICANCE (ASC-US). CELLULAR CHANGES ASSOCIATED WITH ATROPHY ARE PRESENT. Performed By: #### L 7400.0280 ####[facility] [address] [place], [place], [id number] HPV APTIMA, HR Positive Abnormal Negative [facility] Comment on above: Order Comment: Speci men Comment: [id number] Comment: Source.............Cervix;EndocervixSpecimen Comment: Other..............Post MenopausalSpecimen Comment: No. of containers..01 ThinPrep Vial Result Comment: This nucleic acid amplification test detects fourteen high- risk HPV types (16,18,31,33,35,39,45,51,52,56,58,59,66,68) without differentiation. Performed By: #### L 7400.0280 ####[facility] [address] [facility] [place], [address] HPV Roxann Rfx Comment Normal . [facility] Comment on above: Order Comment: Speci men Comment: [id number] Comment: Source.............Cervix;EndocervixSpecimen Comment: Other..............Post MenopausalSpecimen Comment: No. of containers..01 ThinPrep Vial Result Comment: Crit eria not met, HPV Genotype not performed. Performed at: [address] [id number] Promotional Representative: Deanne Trevino MD, Phone: [phone] Performed at: =[address] [id number] Promotional Representative: Deanne Trevino MD, Phone: [phone] Performed By: #### L 7400.0280 ####[facility] [address] [facility] [address] [place], [place], [id number] PAPSMR Comment Normal . [facility] Comment on above: Order Comment: Speci men Comment: [id number] Comment: Source.............Cervix;EndocervixSpecimen Comment: Other..............Post MenopausalSpecimen Comment: No. [...] do occur. Performed By: #### L 7400.0280 ####[facility] [address] [place], [place], [address] Path.prov.IDC-9 Comment Normal . [facility] Comment on above: Order Comment: Speci men Comment: [id number] Comment: Source.............Cervix;EndocervixSpecimen Comment: Other..............Post MenopausalSpecimen Comment: No. of containers..01 ThinPrep Vial Result Comment: R87. 610 Performed By: #### L 7400.0280 ####[facility] [address] [place], [place], [address] PERFORM Comment Normal . [facility] Comment on above: Order Comment: Speci men Comment: [id number] Comment: Source.............Cervix;EndocervixSpecimen Comment: Other..............Post MenopausalSpecimen Comment: No. of containers..01 ThinPrep Vial Result Comment: Licha Wade Carpenter Supervisor [employer] (ASCP) Performed By: #### L 7400.0280 ####[facility] [address] [place], [place], [id number] SIGN Comment Normal . [facility] Comment on above: Order Comment: Speci men Comment: [id number] Comment: Source.............Cervix;EndocervixSpecimen Comment: Other..............Post MenopausalSpecimen Comment: No. 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) Community Recreation Coordinator Required: No Is patient in pain?: No Allergies Penicillins Adverse Reaction (Verified 10/11/23 08:44) Rash Sulfa (Sulfonamide Antibiotics) Adverse Reaction (Verified 10/11/23 08:44) Rash Medications ???Medication ???Instructions ???Recorded ???Confirmed ???Type venlafaxine 75 mg capsule,extended 75 mg PO DAILY #90 caps 03/06/23 10/11/23 Rx release 24 hr phentermine 11.25 mg-topiramate ER 1 cap PO DAILY 30 days #30 caps 09/14/23 10/11/23 Rx 69 mg capsule,ext.dmhixrw21rd mphas (Qsymia) levothyroxine 88 mcg tablet 88 [...] Del Locatn Provider FOB Unknown Vasyl-1989 Unknown -1993 HPI Encounter for routine gynecological examination Details: [...] acute distress, well developed and well groomed [facility] Head: normal to inspection and normocephalic Ears: [...] to inspectio (more content not included)... Normal [facility] Office Visit Reporton 2023 Office Visit Report [facility] [address] [place] [address] OFFICE VISIT Date of Service: 09/12/23 MR#: [id number] Acct: [id number] Patient: ALFONSO VERDUGO Rep #: [id number] : 1960 Provider: Dr. Rose Marie florez MD Age/Sex: 63/F [place] [facility] [place]: Signed Intake Vital Signs 03/08/23 16:00 09/12/23 11:28 Height 5 ft 6 in 5 ft 6 in Weight: 230 lb 217 lb 8 oz BMI 37.1 35.1 BP 132/82 H 134/84 H Pulse 80 Intake Visit Reasons: WT CHK Community Recreation Coordinator Required: No Is patient in pain?: No [...] #30 caps 09/14/23 09/14/23 Rx 69 mg capsule,ext.vmfvgkj52dj mphas (Qsymia) Is last menstrual period known: [...] at night 09/14/23 0847 Date Rose Marie Brush MD [facility] Signature: Date (if applicable) CC: Normal [facility] URINE CULTURE [CCL]on 2023 Bacteria identified Cx Nom (U) URCUL See Results Below See Below CULTURE, URINE NORMAL UROGENITAL [place] <10,000 CFU/ml Normal urogenital [place] SOURCE: Urine (Nonspecific) [place] [address] Dale Benoit III, M.D. [id number] SEND TO IC NO Normal [facility] Comment on above: Performed By: #### 2 33391 #### [facility],[address] [place] [address] Bacteria Ur Culton Bacteria identified Cx Nom (U) ORGANISM ID: 1 <10,000 CFU/ml Normal urogenital [place]ida Normal [facility] Comment on above: Performed By: #### 6 30-4 #### [facility] CLIA [id number] [address] [place] [address] [place] OF [facility] URINALYSIS WITH MICROSCOPYon 08-02-2023 Amorphous NONE Normal [facility] Comment on above: Performed By: #### 2 25362 #### [facility],[address] [place] [address] Bacteria NONE Normal [facility] Comment on above: Performed By: #### 2 89164 #### [facility],[address] [place] [address] Bilirubin Ql (U) Negative Normal NORMAL: NEGATIVE [facility] Comment on above: Performed By: #### 2 02214 #### [facility],[address] [place] [address] Calcium Ox 2+ Normal NORMAL: NONE [facility] Comment on above: Performed By: #### 2 22626 #### [facility],[address] [place] [address] Casts NONE Normal [facility] Comment on above: Performed By: #### 2 36700 #### [facility],[address] [place] [address] Clarity (U) CLEAR Normal NORMAL: CLEAR [facility] Comment on above: Performed By: #### 2 45813 #### [facility],[address] [place], [place] [id number] Color (U) rosa Normal NORMAL: YELLOW [facility] Comment on above: Performed By: #### 2 74751 #### [facility],[address] [place], [place] [id number] Crystals LM Nom (Urine sed) SEE BELO Normal [facility] Comment on above: Performed By: #### 2 00538 #### [facility],[address] [place], [place] [address] Epi Cells NONE Normal [facility] Comment on above: Performed By: #### 2 07301 #### [facility],[address] [place] [address] Glucose Ql (U) NORM Normal NORMAL: NORMAL [facility] Comment on above: Performed By: #### 2 35860 #### [facility],[address] [place] [address] Hemoglobin Ql (U) 10 Abnormal NORMAL: NEGATIVE [facility] Comment on above: Performed By: #### 2 68616 #### [facility],[address] [place] [address] Ketone 15 Abnormal NORMAL: NEGATIVE [facility] Comment on above: Performed By: #### 2 37923 #### [facility],[address] [place] [address] Leukocytes 25 Abnormal NORMAL: NEGATIVE [facility] Comment on above: Result Comment: URIN E MICROSCOPIC Performed By: #### 2 16083 #### [facility],[address] [place] [address] Mucous NONE Normal [facility] Comment on above: Performed By: #### 2 19245 #### [facility],[address] [place] [address] Nitrite Ql (U) Negative Normal NORMAL: NEGATIVE [facility] Comment on above: Performed By: #### 2 37315 #### [facility],[address] [place] [address] pH (U) 5 [pH] Normal NORMAL: 5.0-8.0 [facility] Comment on above: Performed By: #### 2 56482 #### [facility],[address] [place] [address] Protein Ql (U) 15 Abnormal NORMAL: NEGATIVE [facility] Comment on above: Performed By: #### 2 70305 #### [facility],[address] [place] [address] Rbc 0-5 Normal 0-3 / hpf [facility] Comment on above: Performed By: #### 2 42816 #### [facility],[address] [place] [address] Sp [place] 1.030 Normal NORMAL: 1.010-1.030 [facility] Comment on above: Performed By: #### 2 11504 #### [facility],[address] [place] [address] Specimen Type R Normal [facility] Comment on above: Performed By: #### 2 08008 #### [facility],[address] [place] [address] URINALYSIS WITH MICROSCOPY Normal [facility] Comment on above: Result Comment: URIN ALYSIS Performed By: #### 2 71164 #### [facility],[address] [place] [address] Urobilinog 1 Abnormal NORMAL: NORMAL [facility] Comment on above: Performed By: #### 2 53212 #### [facility],[address] [place] [address] Wbc 1-5 Normal 0-5 / hpf [facility] Comment on above: Performed By: #### 2 58572 #### [facility],[address] [place] [address] Yeast NONE Normal [facility] Comment on above: Performed By: #### 2 35851 #### [facility],[address] [place] [address] Laboratory - Chemistry and C hemistry - challengeOrdered By: Rose Marie Brush on 03-01-2023 Free T4 [Mass/Vol] 1.21 ng/dL 0.76-1.46 [facility] No Panel InformationOrdered By: Rose Marie Brush on 03-01-2023 Thyroid Stimulating Hormone (TSH) 2.34 uIU/mL 0.358-3.74 [facility] CNPDaniela 01-01-2023 CNPN Telephone (CARCMN) ALFONSO VERDUGO ([id number]) 1960 F Date Time Provider Department 01/01/23 VINH KAPADIA CARCMN During your visit today, we recorded the following information about you: Bo Shipley 01/01/2023 9:38 AM Signed ECHO order faxed to [facility] at [phone]. Bo Shipley Allergies As of Date: 01/01/2023 [...] Status:Closed by BO SHIPLEY on 01/01/23 Normal [facility] Absolute lymphocyte countOrd ered By: Rose Marie Brush on 12-19-2022 Lymphocytes Auto (Unsp spec) [#/Vol] 1.93 10*3/uL 0.83-4.51 [facility] Basophil percentageOrdered B y: Rose Marie Brush on 12-19-2022 Basophils/100 WBC (Bld) 0.8 % 0-1 [facility] Bilirubin [Mass/Vol] 0.40 mg/dL 0.20-1.00 [facility] Comment on above: For patients on eltr ombopag therapy, use of Dimension [place] TBIL is not recommended. Chloride [Moles/Vol] 107 mmol/L 98-107 [facility] Eosinophils/100 WBC (Bld) 1.9 % 0-5 [facility] Glucose [Mass/Vol] 94 mg/dL 74-106 [facility] Neutrophils (Bld) [#/Vol] 2.8 10*3/uL 2.0-7.7 [facility] Neutrophils/100 WBC (Bld) 53.7 % 47-70 [facility] Potassium [Moles/Vol] 3.9 mmol/L 3.5-5.1 [facility] Protein [Mass/Vol] 7.9 g/dL 6.4-8.2 [facility] Sodium [Moles/Vol] 138 mmol/L 136-145 [facility] WBC (Bld) [#/Vol] 5.2 10*3/uL 4.4-11.0 [facility] Blood erythrocytes count (nu mber/volume)Ordered By: Rose Marie Brush on 12-19-2022 RBC (Bld) [#/Vol] 5.04 10*6/uL 4.2-5.4 [facility] Blood hemoglobin measurement (mass/volume)Ordered By: Rose Marie Brush on 12-19-2022 Hemoglobin (Bld) [Mass/Vol] 13.8 g/dL 12.0-15.0 [facility] Blood lymphocytes/100 leukoc ytesOrdered By: Rose Marie Brush on 12-19-2022 Lymphocytes/100 WBC (Bld) 36.9 % 19-41 [facility] Blood monocytes/100 leukocyt esOrdered By: Rose Marie Brush on 12-19-2022 Monocytes/100 WBC (Bld) 6.5 % 0-10 [facility] Blood platelet mean volumeOr dered By: Rose Marie Brush on 12-19-2022 Platelet mean volume (Bld) [Entitic vol] 10.4 fL 6.2-12.0 [facility] Determination of erythrocyte mean corpuscular volume (MCV)Ordered By: Rose Marie Brush on 12-19-2022 MCV (RBC) [Entitic vol] 87.1 fL 81-99 [facility] Hematocrit Auto (Bld) [Volum e fraction]Ordered By: Rose Marie Brush on 12-19-2022 Hematocrit (Bld) [Volume fraction] 43.9 % 37-47 [facility] Laboratory - Chemistry and C hemistry - challengeOrdered By: Rose Marie Brush on 12-19-2022 ALP [Catalytic activity/Vol] 111 U/L 45-117 [facility] ALT [Catalytic activity/Vol] 23 U/L 13-56 [facility] CO2 [Moles/Vol] 28.0 mmol/L 21.0-32.0 [facility] Globulin (S) [Mass/Vol] 4.3 g/dL 2.2-4.2 [facility] Urea nitrogen/Creatinine [Mass ratio] 17.6 mg/mg 10-20 [facility] Laboratory - Chemistry and C hemistry - challengeOrdered By: Fabi Alfonso on 12-19-2022 Free T4 [Mass/Vol] 1.55 ng/dL 0.76-1.46 [facility] Laboratory - Hematology and Cell countsOrdered By: Rose Marie Brush on 12-19-2022 Erythrocyte distribution width (RBC) [Entitic vol] 48.2 fL 35.1-43.9 [facility] Erythrocyte distribution width (RBC) [Ratio] 15.0 % 11.6-14.6 [facility] Immature granulocytes/100 WBC (Bld) 0.200 % 0.0-0.9 [facility] Comment on above: IG% - Immature Granu locytes (promyelocytes, myelocytes and metamyelocytes) > 1% indicates that a LEFT SHIFT is Present. MCH (RBC) [Entitic mass] 27.4 pg 27.0-32.0 [facility] Nucleated RBC/100 WBC (Bld) [Ratio] 0 % 0-5 [facility] MCHC Auto (RBC) [Mass/Vol]Or dered By: Rose Marie Brush on 12-19-2022 MCHC (RBC) [Mass/Vol] 31.4 g/dL 32-36 [facility] No Panel InformationOrdered By: Rose Marie Brush on 12-19-2022 Estimated GFR (MDRD) Amer 103 mL/min >60 [facility] Comment on above: GFR Calc Estimated GFR (MDRD) Non-Af Amer 85 mL/min >60 [facility] Comment on above: Non- GFR Calc Thyroid Stimulating Hormone (TSH) 1.45 uIU/mL 0.358-3.74 [facility] Vitamin D 25-Hydroxy 31.4 ng/mL [facility] Comment on above: Vitamin D 25(OH) Sta tus Range Deficiency <20 ng/mL (50nmol/L) Insufficiency 20 - 30 ng/mL (50 - 75 nmol/L) Sufficiency 30 - 100 ng/mL (75 - 250 nmol/L) Toxicity >100 ng/mL (>250 nmol/L) Platelets bldOrdered By: Justin Brush on 12-19-2022 Platelets (Bld) [#/Vol] 318 10*3/uL 150-450 [facility] Serum or plasma albumin alisa urement (mass/volume)Ordered By: Rose Marie Brush on 12-19-2022 Albumin [Mass/Vol] 3.6 g/dL 3.2-5.0 [facility] Serum or plasma albumin/glob ulin mass ratioOrdered By: Rose Marie Brush on 12-19-2022 Albumin/Globulin [Mass ratio] 0.8 {ratio} 0.9-2.4 [facility] Serum or plasma calcium alisa urement (mass/volume)Ordered By: Rose Marie Brush on 12-19-2022 Calcium [Mass/Vol] 8.7 mg/dL 8.5-10.1 [facility] Serum or plasma creatinine m easurement (mass/volume)Ordered By: Rose Marie Brush on 12-19-2022 Creatinine [Mass/Vol] 0.74 mg/dL 0.55-1.02 [facility] Comment on above: The validity of the calculated GFR & GFRAA in patients over 70 years has not been determined. Clinical correlation is essential. Serum or plasma urea nitroge n measurement (mass/volume)Ordered By: Rose Marie Brush on 12-19-2022 Urea nitrogen [Mass/Vol] 13 mg/dL 7-18 [facility] Thin prep Papanicolaou smear with manual screeningOrdered By: Rose Marie Brush on 12-19-2022 Thin prep Papanicolaou smear with manual screening 11 U/L 15-37 [facility] Thin prep Papanicolaou smear with manual screening 3 5-15 [facility] Whole blood hemoglobin A1c/t otal hemoglobin ratio (mass fraction)Ordered By: Rose Marie Brush on 12-19-2022 HbA1c (Bld) [Mass fraction] 5.6 % 3.8-5.6 [facility] Comment on above: Normal < 5.7 % Predi abetic 5.7 - 6.4 % Diabetic >or= 6.5 % Please note range changes. Cervical or vagninal specime n microscopic examination by cytology stain (reported asOrdered By: Rose Marie Brush on 10-05-2022 Cytology report Cyto stain Doc (Cvx/Vag) Comment . [facility] Comment on above: The Pap smear is [...] 16, 18, 31, 33,Ordered By: Rose Marie Bursh on 10-05-2022 HPV 16+18+31+33+35+39+45+51 +52+56+58+59+66+68 DNA Probe+sig amp Ql (Cvx) Positive Negative [facility] Comment on above: This nucleic acid am plification test detects fourteen high-risk HPV types (16,18,31,33,35,39,45,51,52,56,58,59,66,68)without differentiation. Laboratory - CytologyOrdered By: Rose Marie Brush on 10-05-2022 Life Support Technician Cyto stain Nom (Cvx/Vag) [ID] Comment . [facility] Comment on above: Leanna Pate, Cytot echnologist (ASCP) Pathologist Cyto stain Nom (Cvx/Vag) [ID] Comment . [facility] Comment on above: Mandy Figueroa MD, P athologist Laboratory - Miscellaneous t estsOrdered By: Rose Marie Brush on 10-05-2022 Service comment (Unsp spec) [Interp] Comment . [facility] Comment on above: This liquid based Th inPrep(R) pap test was screened withthe use of an image guided system. Service comment (Unsp spec) [Interp] . . [facility] Liquid-based cerv Pap + CT/G C by ABNER w reflex to high-risk HPV for ASCUSOrdered By: Rose Marie Brush on 10-05-2022 Cytology report Cyto stain.thin prep Doc (Cvx/Vag) Comment . [facility] Comment on above: Criteria not met, HP V Genotype not performed.Performed at: - [address] [id number] Director: Deanne Trevino MD, Phone: [phone] at: =[facility] [id number] Director: Deanne Trevino MD, Phone: [phone] No Panel InformationOrdered By: Rose Marie Brush on 10-05-2022 Pathology report final diagnosis Narrative Comment . [facility] Comment on above: EPITHELIAL CELL ABNO RMALITY.ATYPICAL SQUAMOUS CELLS OF UNDETERMINED SIGNIFICANCE (ASC-US).CELLULAR CHANGES ASSOCIATED WITH ATROPHY ARE PRESENT. R87.610 MRI BRAIN WO IVCONon 023 [facility] Cervical or vagninal specime n microscopic examination by cytology stain (reported ason 09-30-2021 Cytology report Cyto stain Doc (Cvx/Vag) Comment . [facility] Work Phone: Comment on above: The Pap [...] DNA Probe+sig amp Ql (Cvx) Positive Negative [facility] Work Phone: Comment on above: This nucleic acid am plification test detects fourteen high-risk HPV types (16,18,31,33,35,39,45,51,52,56,58,59,66,68)without differentiation.Performed at: - [address] [id number] Director: Deanne Trevino MD, Phone: [phone] at: = - [facility] [id number] Director: Deanne Trevino MD, Phone: [phone] Laboratory - Cytologyon 09-19 Life Support Technician Cyto stain Nom (Cvx/Vag) [ID] Comment . [facility] Work Phone: Comment on above: Julio Rubio , Carpenter Supervisor [place] (ASCP) Pathologist Cyto stain Nom (Cvx/Vag) [ID] Comment . [facility] Work Phone: Comment on above: Angela Corea MD, Pa thologist Recommended follow-up Cyto stain Nom (Cvx/Vag) Comment . [facility] Work Phone: Comment on above: Suggest follow up as clinically appropriate. Laboratory - Miscellaneous t estson 09-30-2021 Service comment (Unsp spec) [Interp] Comment . [facility] Work Phone: Comment on above: This liquid based Th inPrep(R) pap test was screened withthe use of an image guided system. Service comment (Unsp spec) [Interp] . . [facility] Work Phone: No Panel Informationon 09-30 Pathology report final diagnosis Narrative Comment . [facility] Work Phone: Comment on above: EPITHELIAL CELL ABNO RMALITY.ATYPICAL SQUAMOUS CELLS OF UNDETERMINED SIGNIFICANCE (ASC-US). R87.610 25-Hydroxy D2+D3on 25-Hydroxy D Total 25.7 ng/mL Low 30.0-100.0 [facility] Comment on above: Performed By: #### D 2D3 #### [facility] Chemistry [address] [address] 25-Hydroxy D2 <4.0 Normal [facility] Comment on above: Performed By: #### D 2D3 #### [facility] Chemistry [address] [address] 25-Hydroxy D3 25.7 ng/mL Normal [facility] Comment on above: Performed By: #### D 2D3 #### [facility] Chemistry [address] [address] Vital Signs Date Time Vital Sign Value Performing Clinician Megan groves 09-08-2024 15:57-0400 Body height 167.[address] Millie Payton MD Work Phone: [facility] 09-08-2024 15:51-0400 Body mass index (BMI) [Ratio] 34.5 kg/m2 Dr. Millie Payton MD Work Phone: [facility] 09-08-2024 15:51-0400 Body weight 97.[address] Millie Payton MD Work Phone: [facility] 09-08-2024 15:51-0400 Diastolic blood pressure 80 mm[Hg] Dr. Millie Payton MD Work Phone: [facility] 09-08-2024 15:51-0400 Heart rate 88 /min Dr. Millie Payton MD Work Phone: [facility] 09-08-2024 15:51-0400 Systolic blood pressure 132 mm[Hg] Dr. Millie Payton MD Work Phone: 6(190)912-588423 [place] [address] 08-20-2024 23:35-0400 Body temperature 98.1 [degF] Dr. Millie Payton MD Work Phone: 6(700)164-213523 [place] [address] 08-20-2024 23:35-0400 Diastolic blood pressure 83 mm[Hg] Dr. Millie Payton MD Work Phone: [facility] 08-20-2024 23:35-0400 Heart rate 70 /min Dr. Millie Payton MD Work Phone: [facility] 08-20-2024 23:35-0400 Respiratory rate 16 /min Dr. Millie Payton MD Work Phone: [facility] 08-20-2024 23:35-0400 SaO2% (BldA) [Mass fraction] 100 % Dr. Millie Payton MD Work Phone: [facility] 08-20-2024 23:35-0400 Systolic blood pressure 149 mm[Hg] Dr. Millie Payton MD Work Phone: [facility] 08-20-2024 21:14-0400 Body height 167.[address] Millie Payton MD Work Phone: [facility] 08-14-2024 09:11-0400 Body height 167.[address] Millie Payton MD Work Phone: [facility] 08-14-2024 09:11-0400 Body mass index (BMI) [Ratio] 35 kg/m2 Dr. Millie Payton MD Work Phone: [facility] 08-14-2024 09:11-0400 Body temperature 97.3 [degF] Dr. Millie Payton MD Work Phone: [facility] 08-14-2024 09:11-0400 Body weight 98.[address] Millie Payton MD Work Phone: [facility] 08-14-2024 09:11-0400 Diastolic blood pressure 77 mm[Hg] Dr. Millie Payton MD Work Phone: [facility] 08-14-2024 09:11-0400 Heart rate 78 /min Dr. Millie Payton MD Work Phone: [facility] 08-14-2024 09:11-0400 Respiratory rate 18 /min Dr. Millie Payton MD Work Phone: [facility] 08-14-2024 09:11-0400 SaO2% (BldA) [Mass fraction] 99 % Dr. Millie Payton MD Work Phone: [facility] 08-14-2024 09:11-0400 Systolic blood pressure 135 mm[Hg] Dr. Millie Payton MD Work Phone: [facility] 08-13-2024 16:25-0400 Body temperature 97.5 [degF] Dr. Millie Payton MD Work Phone: [facility] 08-13-2024 16:25-0400 Diastolic blood pressure 62 mm[Hg] Dr. Millie Payton MD Work Phone: [facility] 08-13-2024 16:25-0400 Heart rate 65 /min Dr. Millie Payton MD Work Phone: [facility] 08-13-2024 16:25-0400 Respiratory rate 17 /min Dr. Millie Payton MD Work Phone: [facility] 08-13-2024 16:25-0400 SaO2% (BldA) [Mass fraction] 99 % Dr. Millie Payton MD Work Phone: [facility] 08-13-2024 16:25-0400 Systolic blood pressure 128 mm[Hg] Dr. Millie Payton MD Work Phone: 2(823)105-142923 [place] [address] 08-13-2024 10:41-0400 Body height 167.[address] Millie Payton MD Work Phone: 4(004)124-217823 [place] [address] 08-13-2024 10:41-0400 Body mass index (BMI) [Ratio] 33.4 kg/m2 Dr. Millie Payton MD Work Phone: 7(368)243-729123 [place] [address] 08-13-2024 10:41-0400 Body weight 93.[address] Millie Payton MD Work Phone: 3(986)753-583623 [place] [address] 08-04-2024 08:20-0400 Body temperature 97.2 [degF] Dr. Millie Payton MD Work Phone: 4(308)896-003623 [place] [address] 08-04-2024 08:20-0400 Diastolic blood pressure 77 mm[Hg] Dr. Millie Payton MD Work Phone: [facility] 08-04-2024 08:20-0400 Heart rate 55 /min Dr. Millie Payton MD Work Phone: [facility] 08-04-2024 08:20-0400 Respiratory rate 16 /min Dr. Millie Payton MD Work Phone: 7(508)590-405123 [place] [address] 08-04-2024 08:20-0400 SaO2% (BldA) [Mass fraction] 100 % Dr. Millie Payton MD Work Phone: 3(820)197-200823 [place] [address] 08-04-2024 08:20-0400 Systolic blood pressure 113 mm[Hg] Dr. Millie Payton MD Work Phone: [facility] 08-04-2024 06:48-0400 Body height 167.[address] Millie Payton MD Work Phone: [facility] 08-04-2024 06:48-0400 Body mass index (BMI) [Ratio] 33.4 kg/m2 Dr. Millie Payton MD Work Phone: 1(535)527-393223 [place] [address] 08-04-2024 06:48-0400 Body weight [address] Millie Payton MD Work Phone: 8(795)727-288581 [address] 05-30-2024 11:34-0400 Body mass index (BMI) [Ratio] 34 kg/m2 Dr. Millie Payton MD Work Phone: 0(879)080-372281 [address] 05-30-2024 11:34-0400 Body weight 95.[address] Millie Payton MD Work Phone: 4(635)223-316923 [place] [address] 05-30-2024 11:34-0400 Diastolic blood pressure 84 mm[Hg] Dr. Millie Payton MD Work Phone: 0(466)176-541823 [place] [address] 05-30-2024 11:34-0400 Heart rate 71 /min Dr. Millie Payton MD Work Phone: 1(407)827-870423 [place] [address] 05-30-2024 11:34-0400 Systolic blood pressure 125 mm[Hg] Dr. Millie Payton MD Work Phone: 4(199)816-167423 [place] [address] 04-30-2024 08:41-0400 Body mass index (BMI) [Ratio] 33.7 kg/m2 Dr. Millie Payton MD Work Phone: [facility] 04-30-2024 08:41-0400 Body weight 94.[address] Millie Payton MD Work Phone: [facility] 04-30-2024 08:41-0400 Diastolic blood pressure 82 mm[Hg] Dr. Millie Payton MD Work Phone: [facility] 04-30-2024 08:41-0400 Heart rate 77 /min Dr. Millie Payton MD Work Phone: [facility] 04-30-2024 08:41-0400 Systolic blood pressure 130 mm[Hg] Dr. Millie Payton MD Work Phone: [facility] 04-03-2024 13:30-0500 Body mass index (BMI) [Ratio] 33.9 kg/m2 Dr. Millie Payton MD Work Phone: [facility] 04-03-2024 13:30-0500 Body weight 95.[address] Millie Payton MD Work Phone: [facility] 04-03-2024 13:30-0500 Diastolic blood pressure 84 mm[Hg] Dr. Millie Payton MD Work Phone: [facility] 04-03-2024 13:30-0500 Heart rate 67 /min Dr. Millie Payton MD Work Phone: [facility] 04-03-2024 13:30-0500 Systolic blood pressure 133 mm[Hg] Dr. Millie Payton MD Work Phone: [facility] 12-26-2022 09:14-0500 Diastolic blood pressure 94 mm[Hg] Vinh Kapadia MD Work Phone: [facility] 12-26-2022 09:14-0500 Systolic blood pressure 155 mm[Hg] Vinh Kapadia MD Work Phone: [facility] 12-26-2022 09:06-0500 Body height 167.6 cm Vinh Kapadia MD Work Phone: [facility] 12-26-2022 09:06-0500 Body weight 99.79 kg Vinh Kapadia MD Work Phone: [facility] 12-26-2022 09:06-0500 Heart rate 71 /min Vinh Kapadia MD Work Phone: [facility] 12-26-2022 09:06-0500 SaO2% (BldA) [Mass fraction] 98 % Vinh Kapadia MD Work Phone: [facility] 11-23-2022 14:28-0400 Body height 167.[address] Millie Payton Work Phone: [facility] 11-23-2022 14:27-0400 Body mass index (BMI) [Ratio] 36.9 kg/m2 Dr. Millie Payton Work Phone: [facility] 11-23-2022 14:27-0400 Body weight 103.[address] Millie Payton Work Phone: [facility] 11-23-2022 14:27-0400 Diastolic blood pressure 90 mm[Hg] Dr. Millie Payton Work Phone: [facility] 11-23-2022 14:27-0400 Systolic blood pressure 142 mm[Hg] Dr. Millie Payton Work Phone: [facility] 10-05-2022 16:10-0400 Body height 167.[address] Millie Payton Work Phone: [facility] 10-05-2022 16:10-0400 Body mass index (BMI) [Ratio] 36.3 kg/m2 Dr. Millie Payton Work Phone: [facility] 10-05-2022 16:10-0400 Body weight 102.[address] Millie Payton Work Phone: [facility] 10-05-2022 16:10-0400 Diastolic blood pressure 84 mm[Hg] Dr. Millie Payton Work Phone: [facility] 10-05-2022 16:10-0400 Systolic blood pressure 138 mm[Hg] Dr. Millie Payton Work Phone: [facility] 09-30-2021 11:17-0400 Body height 167.[address] Millie Payton Work Phone: [facility] Work Phone: 09-30-2021 11:16-0400 Body mass index (BMI) [Ratio] 36.3 kg/m2 Dr. Millie Payton Work Phone: [facility] Work Phone: 09-30-2021 11:16-0400 Body weight 102.[address] Millie Payton Work Phone: [facility] Work Phone: 09-30-2021 11:16-0400 Diastolic blood pressure 74 mm[Hg] Dr. Millie Payton Work Phone: [facility] Work Phone: 09-30-2021 11:16-0400 Systolic blood pressure 102 mm[Hg] Dr. Millie Payton Work Phone: [facility] Work Phone: 08-09-2021 10:14-0400 Body height 167.6 cm Romero Pelletier MD Work Phone: [facility] 08-09-2021 10:14-0400 Body temperature 97.3 [degF] Romero Pelletier MD Work Phone: [facility] 08-09-2021 10:14-0400 Body weight 94.35 kg Romero Pelletier MD Work Phone: [facility] 08-09-2021 10:14-0400 Diastolic blood pressure 73 mm[Hg] Romero Pelletier MD Work Phone: [facility] 08-09-2021 10:14-0400 Heart rate 64 /min Romero Pelletier MD Work Phone: [facility] 08-09-2021 10:14-0400 Respiratory rate 15 /min Romero Pelletier MD Work Phone: [facility] 08-09-2021 10:140400 SaO2% (BldA) [Mass fraction] 99 % Romero Pelletier MD Work Phone: [facility] 08-09-2021 10:140400 Systolic blood pressure 144 mm[Hg] Romero Pelletier MD Work Phone: [facility] Encounters Encounter Date Encounter Type Care Provider Facility Start: 09-26-2024 ambulatory Millie Payton Facility: [facility] Start: 09-23-2024 ambulatory Jeet Roberts Facility :[facility] Start: 09-08-2024 End: 09-08-[address] [facility] Start: 09-08-2024 End: 09-08-[address] Rose Marie Brush MD -[facility] Work Phone: Start: 09-08-2024 Patient encounter procedure Naty ARRIAZA -Laboratory Specimen Work Phone: Start: 09-01-2024 End: 09-01-2024 Patient encounter procedure Naty ARRIAZA -[facility] Work Phone: Start: 09-01-2024 End: 09-01-[address] Millie Payton MD Work Phone: -[facility] Start: 08-20-2024 End: 08-20-2024 Emergency department patient visit Dr. Millie Payton MD Work Phone: -Emergency Department Work Phone: Start: 08-14-2024 End: 08-14-[address] Jeet Roberts MD -[facility] Work Phone: Start: 08-14-2024 End: 08-14-[address] Millie Payton MD Work Phone: [facility] Work Phone: Start: 08-13-2024 End: 08-13-2024 Emergency department patient visit Dr. Millie Payton MD Work Phone: -Emergency Department Work Phone: Start: 08-04-2024 Non-patient / Non-visit Dr. Dc Lopez MD -[facility] Start: 08-04-2024 End: 08-04-2024 Admission to same day surgery center Dr. Maryellen Lopez MD -Endoscopy Work Phone: Start: 08-04-2024 End: 08-04-[address] Millie Payton MD Work Phone: [facility] Work Phone: Start: 07-15-2024 ambulatory SELF SELF Facility:[facility] Start: 05-30-2024 End: 05-30-[address] Rose Marie rBush MD -[facility] Work Phone: Start: 05-30-2024 End: 05-30-2024 ambulatory Butros Latouf Facility:[facility] Start: 04-30-2024 End: 04-30-[address] 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-C -[facility] Work Phone: Start: 04-08-2024 End: 04-08-2024 ambulatory Tracey Hudson Facility:[facility] Start: 04-01-2024 ambulatory Butros Latouf Facility: [facility] Start: 03-05-2024 End: 03-05-2024 ambulatory Tracey Hudson Facility:[facility] Start: 01-23-2024 End: 01-23-2024 ambulatory Butros Latouf Facility:[facility] Start: 01-21-2024 ambulatory MILLIE PAYTON [facility] Start: 12-31-2023 ambulatory MILLIE PAYTON [facility] Start: 12-31-2023 Encounter for genera l adult medical examination without abnormal findings MILLIE PAYTON [facility] Start: 12-28-2023 End: 12-28-2023 ambulatory MILLIE HIDALGOJuan Facility:[facility] Start: 12-28-2023 Encounter for genera l adult medical examination without abnormal findings MILLIE PAYTON [facility] Start: 12-11-2023 End: 12-11-2023 ambulatory [facility] Start: 12-11-2023 End: 12-11-2023 ambulatory Millie [facility] Facility:[facility] Start: 10-11-2023 End: 10-11-2023 ambulatory Millie [facility] Start: 10-11-2023 End: 10-11-2023 ambulatory Millie [facility] Facility:[facility] Start: 09-12-2023 End: 09-12-2023 ambulatory Millie Payton [facility] Start: 08-02-2023 End: 08-02-2023 ambulatory MILLIE PAYTON [facility] Start: 03-01-2023 End: 03-01-[address] Millie Payton Work Phone: [facility] Work Phone: Start: 03-01-2023 End: 03-01-[address] Millie Payton Work Phone: [facility]-Laboratory, OP Pavilion Start: 02-07-2023 Non-patient / Non-visit Dr. Baltazar Payton Work Phone: [facility] Start: 02-07-2023 End: 02-07-[address] Millie Payton Work Phone: [facility] Work Phone: Start: 02-07-2023 End: 02-07-[address] Millie Payton Work Phone: [facility]-Cardiovascular Services Work Phone: Start: 01-01-2023 Telephone encounter [...] / Non-visit Dr. Millie Payton Work Phone: [facility] Work Phone: Start: 12-19-2022 End: 12-19-[address] Millie Payton Work Phone: [facility] Work Phone: Start: 12-19-2022 End: 12-19-[address] Millie Payton Work Phone: [facility]-Pulmonary Services/Neurology Work Phone: Start: 11-23-2022 End: 11-23-[address] Millie Payton Work Phone: [facility] Work Phone: Start: 11-23-2022 End: 11-23-[address] Millie Payton Work Phone: [facility]-Outpatient Breast Imaging Work Phone: Start: 10-05-2022 End: 10-05-[address] Millie Payton Work Phone: [facility] Work Phone: Start: 10-05-2022 End: 10-05-[address] Millie Payton Work Phone: [facility]-Laboratory, Specimen Work Phone: Start: 10-05-2022 End: 10-05-[address] Millie Payton Work Phone: [facility] Work Phone: Start: 02-28-2022 Telephone encounter Romero Pelletier MD Work Phone: [facility] Comment on above: Results (MRI) Start: 02-21-2022 End: 02-21-2022 Subsequent hospital visit by physician [employer] [facility] (I-Stat/1.5t) Work Phone: Radiology Comment on above: Transient diplopia [ H53.2] Start: 11-07-2021 Telephone encounter Romero Pelletier MD Work Phone: [facility] Comment on above: Insurance Authorizat ion (/ Imaging Order ) Start: 10-07-2021 End: 10-07-[address] Millie Payton Work Phone: [facility] Work Phone: Start: 10-07-2021 End: 10-07-[address] Millie Payton Work Phone: [facility]-Outpatient Breast Imaging Start: 09-30-2021 End: 09-30-[address] Millie Payton Work Phone: [facility] Start: 08-09-2021 End: 08-09-2021 Patient encounter procedure Romero Pelletier MD Work Phone: [facility] Comment on above: Transient diplopia ( Primary Dx); Transient cerebral ischemia, unspecified type Procedures Date Procedure Procedure Detail Performing Clinician Start: 08-20-2024 Computed tomography of abdomen and pelvis with intravenous contrast Dr. Millie Payton MD Work Phone: Start: 08-13-[address] Millie [...] Treatment Date Care Activity Detail Author Start: 09-08-2024 Protein measurement [facility] Start: 08-20-2024 [facility] Start: 08-13-2024 [facility] Start: 08-04-2024 Colsc flx w/rmvl of tumor polyp lesion snare tq COLONOSCOPY W/LESION REMOVAL [facility] Start: 08-04-[address] [facility] Start: 10-20-2022 Covid-19 Vaccine ( season) Covid-19 Vaccine ( season) [facility] Start: 10-20-2022 Influenza vaccination [facility] Start: 10-05-2022 Liquid based cervica l cytology screening [facility] Start: 08-05-2022 Adult depression scr eening assessment DEPRESSION SCREENING [facility] Start: 2022 RSV Vaccine (1 - 1-d ose 60+ series) RSV Vaccine (1 - 1-dose 60+ series) [facility] Start: 02-19-2022 DEPRESSION ASSESSMENT DEPRESSION ASS ESSMENT [facility] Start: 10-20-2021 Influenza vaccination C [facility] Start: 09-30-2021 Liquid based cervica l cytology screening [facility] Work Phone: Start: 09-23-2020 COVID-19 VACCINE (3 - Booster for Moderna series) COVID-19 VACCINE (3 - Booster for Moderna series) [facility] Start: 06-18-2020 COVID-19 VACCINE (3 - Booster for Moderna series) COVID-19 VACCINE (3 - Booster for Moderna series) [facility] Start: 04-23-2020 COVID-19 VACCINE (2 - Moderna series) COVID-19 VACCINE (2 - Moderna series) [facility] Start: 03-18-2020 HPV TESTING HPV TESTING [facility] Start: 05-11-2017 PAP TESTING PAP TESTING [facility] Start: 05-05-2017 Mammography [facility] Start: 2012 SHINGRIX VACCINE (1 of 2) SANTILLAN GRIX VACCINE (1 of 2) [facility] Start: 2007 COLOGUARD (FIT-DNA) COLOGUARD (FIT-D NA) [facility] Start: 2007 Colonoscopy COLONOSCOPY [facility] Start: 2007 COLORECTAL CANCER SCREENING COLORECTAL CANCER SCREENING [facility] Start: [address] COLONOGRAPHY [facility] Start: 2007 [facility] Start: 2007 Diabetes Screening Diabetes Screenin g [facility] Start: 2007 FECAL OCCULT BLOOD FECAL OCCULT BLOO D [facility] Start: 2007 Lipid 1996 panel - S zoey or Plasma Lipid Screening [facility] Start: 2007 LIPID SCREEN LIPID SCREEN [facility] Start: 2007 SIGMOIDOSCOPY SIGMOIDOSCOPY [facility] Start: 1981 Urine microalbumin profile [facility] Start: 1980 HEPATITIS C SCREENING HEPATITIS C SC REENING [facility] CT Abdomen and Pelvi s W contrast IV [facility] End: 12-27-2023 Echocardiography ECHO Cardiology Routine Abnormal ECG Encounter for screening for cardiovascular disorders 1 Occurrences starting 12/26/2022 until 12/27/2023 [facility] Work Phone: Comment on above: 1 Occurrences starti ng 12/26/2022 until 12/27/2023 Glucose [Mass/volume ] in Serum or Plasma [facility] Work Phone: Lipid 1996 panel - S zoey or Plasma [facility] Work Phone: End: 09-08-2022 Mra head w/o contrst material MRA BRAIN WO IVCON Radiology Routine Transient diplopia Transient cerebral ischemia, unspecified type 1 Occurrences starting 08/09/2021 until 09/08/2022 [facility] Work Phone: Comment on above: 1 Occurrences starti ng 08/09/2021 until 09/08/2022 End: 09-08-2022 Mri brain brain stem w/o contrast material MRI BRAIN WO IVCON Radiology Routine Transient diplopia Transient cerebral ischemia, unspecified type 1 Occurrences starting 08/09/2021 until 09/08/2022 [facility] Work Phone: Comment on above: 1 Occurrences starti ng 08/09/2021 until 09/08/2022 OUTSIDE VENDOR CARDI AC OUTPATIENT EXTENDED RHYTHM RECORDING (WITHOUT TELEMETRY) OUTSIDE VENDOR CARDIAC OUTPATIENT EXTENDED RHYTHM RECORDING (WITHOUT TELEMETRY) Holter Routine Abnormal ECG Encounter for screening for cardiovascular disorders Ordered: 12/26/2022 [facility] Work Phone: Comment on above: Ordered: 12/26/2022 Path report.final Dx Spec [facility] Patient Education Crohns Disease Lifestyle Changes ED Hypertension, To Be Confirmed [facility] Work Phone: Patient referral [facility] Work Phone: Protein measurement [facility] Radionuclide study o f abdomen [facility] Thyroid stimulating hormone measurement [facility] Work Phone: [facility] Payers Date Payer Category Payer Self-pay [id number] 2022 Private Health Insurance [id number] 2021 Unknown [employer] PPO [id number] 2021-Present [phone] [address] [place] [address] PPO [id number] 2021 Unknown [employer] PPO [id number] 2021-Present [phone] [address] [place] [address] PPO [id number] 2003 Unknown [id number] 1962 Unknown [id number] 2.16.840.1.557776.3.579.2 .651 1962 Unknown [id number] 2.16.840.1.750477.3.579.2 .651 1962 Unknown [id number] 2.16.840.1.327397.3.579.2 .651 1962 Unknown [id number] 2.16.840.1.867855.3.579.2 .65 1962 Unknown [id number] 2.16.840.1.831101.3.579.2 .594 Unknown [facility] PACKAGE PLAN [id number] Unknown [id number] 2.16.840.1.659925.3.579.2 .462 Unknown [id number] 2.16.840.1.610051.3.579.2 .462 Unknown [id number] 2.16.840.1.404612.3.579.2 .462 Unknown [id number] 2.16.840.1.576010.3.579.2 .462 Unknown [id number] 2.16.840.1.355865.3.579.2 .462 Unknown [id number] 2.16.840.1.192476.3.579.2 .462 Unknown [id number] 2.16.840.1.223350.3.579.2 .462 Unknown [id number] 2.16.840.1.829558.3.579.2 .462 Unknown [id number] 2.16.840.1.610098.3.579.2 .462 Unknown [id number] 2.16.840.1.714918.3.579.2 .462 Unknown [id number] 2.16.840.1.614610.3.579.2 .462 Unknown [id number] 2.16.840.1.245470.3.579.2 .462 Unknown [id number] 2.16.840.1.574311.3.579.2 .462 Unknown [id number] 2.16.840.1.895545.3.579.2 .462 Unknown [id number] 2.16.840.1.277627.3.579.2 .462 Unknown [id number] 2.16.840.1.395996.3.579.2 .462 Unknown [id number] 2.16.840.1.392488.3.579.2 .462 Unknown [id number] 2.16.840.1.854545.3.579.2 .462 Unknown [id number] 2.16.840.1.482581.3.579.2 .462 Unknown [id number] 2.16.840.1.638430.3.579.2 .462 Unknown [id number] 2.16.840.1.856393.3.579.2 .462 Social History Date Type Detail Facility Start: 12-26-2022 End: 09-08-2024 Tobacco smoking status NHIS Never smoked tobacco [facility] Start: 08-09-2021 End: 12-26-2022 Alcohol intake Current drinker of alcohol (finding) [facility] Start: 08-09-2021 End: 12-26-2022 Alcohol intake [facility] Start: 1960 Sex Assigned At Female [facility] Start: 07-30-2021 End: 08-09-2021 Exposure to SARS-CoV-2 (event) Not sure [facility] Start: 09-30-2021 End: 10-05-2022 Tobacco smoking status NHIS Unknown if ever smoked [facility] Start: 09-17-2019 Non-smoker [facility] Start: 08-09-2021 End: 12-26-2022 Tobacco use panel [facility] Adult Depression Screening Assessment 0 [facility] Start: 07-20-2021 Gender identity Identifies as female gender (finding) [facility] Start: 12-26-2022 Tobacco use and exposure Smokeless tobacco non-user [facility] NEGATED: Highlighted row Not [facility] Goals Date Patient Goal Desired Activity /State Mental Status Date Assessment Result Facility 08-04-2024 Cognitive function Voice/Name [facility] Work Phone: Clinical Notes 08-09-2021 to 08-20-2024 Note Date & Type Note Facility 08-20-2024 Discharge summary [facility] 08-20-2024 Radiology Diagnostic study note [facility] Imaging Services [address] [place], [place] [address] Abdomen/Pelvis W IV Cont ONLY MR#: [id number] Acct: [id number] Name: ALFONSO VERDUGO PASCALE Rep #: [id number] : 1960 F 64 From: Mireya Lombardo MD PCP: Dr. Millie Payton MD Status: REG ER Study:Abdomen/Pelvis W IV Cont ONLY Date of E xam: 08/20/24 Exam# [id number] Ordering Dr: Milo Mcdonald MD PROCEDURE: ABDOMEN/PELVIS W IV CONT ONLY 08/20/2024 REASON FOR EXAM: RIGHT LOWER QUADRANT PAIN, CREATININE 0.68 AUGUST 13 TECHNIQUE: ABDOMEN/PELVIS W IV CONT ONLY Coronal and Sagittal reconstruction series were provided. CONTRAST: Isovue 300 VOLUME: 97 mL One or more dose reduction techniques were used (e.g., Automated exposure control, adjustment of the mA and/or kV according to patient size, use of iterative reconstruction technique. RADIATION DOSE SUMMARY: CTDlvol: 30 mGy DLP: 961 mGycm COMPARISON: Ultrasound 08/13/2024 FINDINGS: Clear lung bases. Normal heart size. Small hiatal hernia. Noncalcified gallstone. Unremarkable liver, pancreas,, adrenal glands,. No hydronephrosis or ureteral stone. Normal uterus and ovaries. No retroperitoneal or pelvic adenopathy. Mesenteric panniculitis. No free air. Status post gastric sleeve. Multiple proximal jejunal loops show wall thickening without pneumatosis. Nondistended bowel. Normal appendix. No acute large bowel findings. Lumbar spine scoliosis and degeneration. CT/Abdomen/Pelvis W IV Cont ONLY IMPRESSION: Jejunal enteritis such as secondary to infection. Advise correlation. Reading Location: [place] [address] CC: Dr. Millie Payton MD; Dr. Diego Mcdonald MD ~ Professor Of Industrial Technology: Signed [facility] 08-20-2024 Discharge summary Note Date/Time August 20, 2024 11:28pm [facility] Medical Records Department [address] [place] [address] Emergency Department Summary 08/20/24 MR#: [id number] Acct: [id number] Name: ALFONSO VERDUGO PASCALE Rep #:[id number] : 1960 64 From: Diego Mcdonald MD PCP: Dr. Millie Payton MD Status:REG ER Location: ED HPI HPI - GI History of Present Illness Chief Complaint: Abd Pain PFSH PFSH Medical History (Updated 08/20/24 @ 23:[address] Diego Mcdonald MD) Right sided abdominal pain Wears glasses Wears contact lenses History of [...] mcg PO DAILY 07/31/24 0 08/04/24 History ciprofloxacin HCl 500 mg tablet 500 mg PO BID #14 TABL ETS 08/20/24 Unknown Rx metronidazole 500 mg tablet 500 mg PO Q8H #21 tabs 04/15 Unknown Rx phentermine 15 mg-topiramate ER 92 1 cap PO Q24H 08/20 Unknown History mg capsule,ext.[id number] multphas (Qsymia) Allergy/AdvReac Type Severity Reaction Status Date / Time Penicillins AdvReac Rash Verified 08/20/24 21:14 Sulfa (Sulfonamide AdvReac Rash Verified 08/20/24 21:14 Antibiotics) Family History Grandmother Breast cancer Grandfather [...] social history: Remarried to Rich! 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 [employer] Physical Exam Const Vital Signs: 08/20/24 21:14 Temperature 97.5 F L Temperature Source Temporal Pulse Rate 80 Respiratory Rate 18 Blood Pressure 154/79 H Blood Pressure Mean 104 Pulse Ox 97 Oxygen Delivery Method Room Air [facility] Lab Data Attestation: I reviewed the patient's lab results. Lab results narrative: CBC is unremarkable. Basic metabolic panel is unremarkable. Labs: Laboratory Results - last 24 hr 08/20/24 21:50 WBC 8.4 RBC 4.68 Hgb 13.0 Hct 40.9 MCV 87.4 MCH 27.8 MCHC 31.8 L RDW Std Deviation 48.1 H RDW Coeff of Annel 15.0 H Plt Count 330 MPV 10.2 Immature Gran % (Auto) 0.200 Neut % (Auto) 66.4 Lymph % (Auto) 24.2 O'Brien % (Auto) 7.2 Eos % (Auto) 1.4 Baso % (Auto) 0.6 Absolute Neuts (auto) 5.6 Absolute Lymphs (auto) 2.03 Nucleated RBC % 0 Sodium 140 Potassium 4.1 Chloride 106 Carbon Dioxide 23.6 Anion Gap 10 BUN 21 H Creatinine 0.74 Est GFR (MDRD) Non-Af 92 BUN/Creatinine Ratio 29.0 H Glucose 100 H Calcium 8.9 Radiography Diagnostic Testing: Clinical Impression(s) from Imaging Studies Abdomen/Pelvis CT 08/20/24 21:33 IMPRESSION: Jejunal enteritis such as secondary to infection. Advise correlation. Reading Location: [place] [address] CT of the abdomen pelvis with IV contrast was reviewed by ok at 2209. The liverand spleen appear normal. Kidneys appear normal. The appendix appears normal. There appears to be sludge in the gallbladder. There is no thickening of the gallbladder wall. Awaiting formal read by radiologist. Radiologist interpretedas jejunal enteritis. Since this been going on for some time and she has no diarrhea we will treat with ciprofloxacin and metronidazole. Will have placement secretary schedule appointment to see Dr. Bess after the . Patient was instructed no alcoholic beverages. 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, Goiter, Obesity (BMI 30.0-34.9), Cholelithiasis, Right sided abdominal pain, Elevated blood-pressure reading without diagnosis of hypertension Instructions: Crohns Disease Lifestyle Changes, ED Hypertension, To Be Confirmed Prescriptions: New metronidazole 500 mg tablet 500 mg PO Q8H Qty: 21 0RF ciprofloxacin HCl 500 mg tablet 500 mg PO BID Qty: 14 0RF No Action venlafaxine 75 mg capsule,extended release 24hr 75 mg PO DAILY Qty: 30 12RF levothyroxine 75 mcg tablet 75 mcg PO DAILY cholecalciferol (vitamin D3) 50 mcg (2,000 unit) capsule 50 mcg PO DAILY phentermine-topiramate [Qsymia] 15-92 mg capsule, ER multiphase 24 hr 1 cap PO Q24H Primary Care Provider: Millie Payton Referrals: Millie Payton MD [Primary Care Provider] - 1-2 Weeks Asaf Bess DO [Med Staff - Active Staff] - Keep Sukhdev appointment Activity Restrictions/Additional Instructions: 1. No alcoholic beverages 24 hours before you start the metronidazole or 48 hours after your last dose 2. Take antibiotics until gone 3. You were scheduled with an appointment to see Dr. Bess after August 30. 4. Your blood pressure is elevated. You should have this rechecked by your physician. 5. You were given home-going structures for Crohn's disease since that matches closest to what was found on your CAT scan. This does not mean you have Crohn'sdisease. Print Language: Mohawk Disposition Disposition: Home, Self Care What to do if you have Problems For any increased pain, shortness of breath, bleeding, nausea or vomiting, chestpain, or any unexpected problems, contact your Primary Care Provider. Call [facility] ([phone]) or report to the closest Emergency Room. Call 911 if necessary. 08/20/24 5707 <Electronically signed by Diego Mcdonald MD> Cosigner Signature (if applicable): CC: Dr. Millie Payton MD ~ Signed [facility] Work Phone: 1(889) 820-169707-01-2025 Hospital Discharge instructionsAdditional Instructions 1. No alcoholic beverages 24 hours before you start the metronidazole or 48 hours after your last dose 2. Take antibiotics until gone 3. You were scheduled with an appointment to see Dr. Bess after August 30. 4. Your blood pressure is elevated. You should have this rechecked by your physician. 5. You were given home-going structures for Crohn's disease since that matches closest to what was found on your CAT scan. This does not mean you have Crohn's disease.[facility] Work Phone: 1(817) 529-877306-25-2025 Discharge summary [facility] Medical Records Department [address] [place] [address] Emergency Department Summary 08/13/24 MR#: [id number] Acct: [id number] Name: ALFONSO VERDUGO Rep #:[id number] : 1960 64 From: Mich Wheatley DO [...] and notes that she feels like it hasbeen progressively worsening. 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 [facility] Medical History Wears glasses Wears contact [...] social history: Remarried to Rich! 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 [employer] ROS ED ROS Narrative Constitutional: Denies fevers, [...] in the right upper quadrant no rebound orguarding on exam Extremities: +5/5 strength noted in the bilateral upper and lower extremities, radial pulses +2/4 in the 5 extremities, no pedal edema exam Neurological: Patient is following commands knew that she was at [facility] the year is 2024 Skin: Warm, dry, [...] 140, potassium normal 3.7, creatinine was normal at0.68. Patient AST and ALT were 18 and 12 respectively, lipase normal 37. Patient's urinalysis reviewed showed no evidence of infection. Patient's ultrasound was reviewed and showed cholelithiasis without acute cholecystitis there was gallbladder sludge and multiple gallstones noted. I had the patient moved from the hallway and put her in a room she [...] % (Auto) 59.5 Lymph % (Auto) 31.3 O'Brien % (Auto) 6.0 Eos % (Auto) 2.2 [...] Sl. Cloudy Urine pH 6.0 Ur Specific [place] 1.010 Urine Protein Negative Urine Glucose (UA) [...] acute cholecystitis. Nonspecific echogenic pancreas. Reading Location: [facility] Discharge Plan Triage Chief Complaint: Abd [...] with worsening symptoms or concerns. Print Language: Mohawk Disposition Disposition: Home, Self Care What to do if you have Problems For any increased pain, shortness of breath, bleeding, nausea or vomiting, chestpain, or any unexpected problems, contact your Primary Care Provider. Call [facility] ([phone]) or report tothe closest Emergency Room. Call 911 if necessary. 08/13/24 1605 Cosigner Signature (if applicable): CC: Dr. Millie Payton MD ~ Signed [facility]06-25-2025 Radiology Diagnostic study note [facility] Imaging Services [address] [place] [address] Abdomen Limited MR#: [id number] Acct: [id number] Name: ALFONSO VERDUGO Rep #: [id number] : 1960 F 64 From: Zofia Guadalupe MD PCP: Dr. Millie Payton MD Status: REG ER Study:Abdomen Limited Date of Exam: 07/21 07/13 Exam# [id number] Ordering Dr: Darion Wheatley DO PROCEDURE: ABDOMEN [...] acute cholecystitis. Nonspecific echogenic pancreas. Reading Location: [facility] CC: Dr. Millie Payton MD; Dr. Mich Wheatley DO ~ Professor Of Industrial Technology: Signed [facility]06-25-2025 Discharge summary Author Mich Wheatley [facility] Note Date/Time August 13, 2024 4:08 pm [facility] Medical Records Department [address] [place] [address] Emergency Department Summary 08/13/24 MR#: [id number] Acct: [id number] Name: ALFONSO VERDUGO Rep #:[id number] : 1960 64 From: Mich Wheatley DO [...] with 1 polyp removed and called the sheet metal duct installer office and they state that she should [...] pain does not get exacerbated with eating. [facility] Medical History Wears glasses Wears contact [...] social history: Remarried to Rich! 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 [employer] ROS ED ROS Narrative Constitutional: Denies fevers, [...] following commands knew that she was at [facility] the year is 2024 Skin: Warm, dry, [...] I had the patient moved from the hallway and put her in a room she [...] % (Auto) 59.5 Lymph % (Auto) 31.3 O'Brien % (Auto) 6.0 Eos % (Auto) 2.2 [...] Sl. Cloudy Urine pH 6.0 Ur Specific [place] 1.010 Urine Protein Negative Urine Glucose (UA) [...] acute cholecystitis. Nonspecific echogenic pancreas. Reading Location: [facility] Discharge Plan Triage Chief Complaint: Abd [...] with worsening symptoms or concerns. Print Language: Mohawk Disposition Disposition: Home, Self Care What to do if you have Problems For any increased pain, shortness of breath, bleeding, nausea or vomiting, chestpain, or any unexpected problems, contact your Primary Care Provider. Call [facility] ([phone]) or report to the closest Emergency Room. Call 911 if necessary. 08/13/24 1608 <Electronically signed by Mich Wheatley DO> Cosigner Signature (if applicable): CC: Dr. Millie Payton MD ~ Signed [facility] Work Phone: 1(695) 364-780806-16-2025 Consult note [facility] Medical Records Department [address] [place] [address] Anesthesia Postop Eval I 08/04/24809 MR#: [id number] Acct: [id number] Name: ALFONSO VERDUGO PASCALE Rep #:[id number] : 1960 64 From: Juancarlos Wheatley PCP: Dr. Millie Payton MD Status:REG [facility] Y Race: C Location: [place] [address] Anesthesia: Postop Eval I Current Vital Signs [...] document: Postop Eval 1 completed: Yes 08/04/24811 > Date _ Juancarlos Wheatley Lisseth Signature: Date CC: ~ Signed [facility]06-16-2025 Procedure note [facility] Medical Records Department [address] [place] [address] Operative Report - CC Letter MR#: [id number] Acct: [id number] Name: ALFONSO VERDUGO Rep #:[id number] : 1960 64 From: Maryellen Lopez MD PCP: Dr. Millie Payton MD Status:REG [facility] 08/04/2024 Millie Payton Re : Colonoscopy procedure [...] electronically. 08/04/24802 Date _ Maryellen Montanez Signature: (if indicated) CC: Dr. Millie Payton MD; Dr. Maryellen Lopez MD ~ Date Dictated: 08/04/24726 Transcribed: Professor Of Industrial Technology: TR Signed [facility]06-16-2025 Procedure note [facility] Medical Records Department [address] [place] [address] Colonoscopy Report MR#: [id number] Acct: [id number] Name: AFLONSO VERDUGO Rep #:[id number] : 1960 64 From: Maryellen Lopez MD PCP: Dr. iMllie Payton MD Status:REG [facility] Patient Name: Alfonso Verdugo Procedure Date: 08/04/2024 [...] pathology results. Procedure Code(s): --- Professional --- 77037, PT, Colonoscopy, flexible; with removal of tumor(s), polyp(s), or other lesion(s) by snare technique Diagnosis Code(s): --- Professional --- Z86.010, Personal history of colonic polyps D12.4, Benign neoplasm of descending colon Z80.0, Family history of malignant neoplasm of digestive organs CPT copyright 2021 [employer]. All rights reserved. The codes documented in this report are preliminary and upon pressed or blown glass worker review may be revised to meet current compliance requirements. MD Maryellen Ramires MD 08/04/2024 8:03:27 AM This report has been signed electronically. Number of Addenda: 0 Note Initiated On: 08/04/2024 7:27 AM 08/04/24 0803 Date _ Maryellen Lopez MD Cosigner Signature: Date (if indicated) CC: Dr. Millie Payton MD; Dr. Maryellen Lopez MD ~ Date Dictated: 08/04/24726 Date Transcribed: Professor Of Industrial Technology: TR Signed [facility]06-16-2025 History and physical note [facility] Medical Records Department [address] [place] [address] History & Physical Exam 08/04/24 0720 MR#: [id number] Acct: [id number] Name: ALFONSO VERDUGO Rep #:[id number] : 1960 64 From: Maryellen Lopez MD PCP: Dr. Millie Payton MD Status:REG [facility] Location: [place] [address] HPI - General General Date of Service: 08/04/24 HPI Narrative ALFONSO VERDUGO, is a 64 F who presents for screening colonoscopy due history of colon polyps?tubular adenoma. Patient last colonoscopy was 5 years ago with , about 4 years ago patient's brotherwas diagnosed with colon cancer at age 55.. Patient has bowel movements daily denies any blood. Patient denies any chronic abdominal pain/nausea/vomiting/reflux. [facility] Medical History Wears glasses Wears contact lenses [...] Rash Discharge Is Pt Admitted From a Penitentiary, or a Custodial: No After D/C, Where Do you Plan to Go: Return Home From the PAT History Number of Risk Factors: 4 Vital [...] complete colonoscopy requiring barium enema. 08/04/24 0726 Cosigner Signature (if applicable): CC: Dr. Millie Payton MD; Dr. Maryellen Lopez MD~ Signed [facility]06-16-2025 [facility] Medical Records Department [address] [place] [address] History Physical Exam 08/04/24 0720 MR#: [id number] Acct: [id number] Name: ALFONSO VERDUGO PASCALE Rep #: [id number] : 1960 64 From: Maryellen Lopez MD PCP: Dr. Millie Payton MD Status:REG [facility] Location: [place] [address] HPI - General General Date of Service: [...] blood. Patient denies any chronic abdominal pain/nausea/vomiting/reflux. [facility] Medical History Wears glasses Wears contact lenses [...] of an Orthopedic Prob (more content not included)...[facility]06-16-2025 Consult note [facility] Medical Records Department [address] [place] [address] Pre-Anesthesia Evaluation 08/04/24 0710 MR#: [id number] Acct: [id number] Name: ALFONSO VERDUGO Rep #:[id number] : 1960 64 From: Do martins CRNA PCP: Dr. Millie Payton MD Status:REG SD Y Race: C Location: [place] [address] ASA Classification* ASA Classification ASA Classification: 2 [...] Procedure(s): COLONOSCOPY-OA Anesthesia History Anesthesia History - change house attendant: Anesthesia History - change house attendant Hx Hospitalization No 07/31/24 10:35 Any Problems [...] take am of surgery PONV PONV - change house attendant: PONV - change house attendant Female Yes 07/31/24 10:35 HX of Motion [...] 08/04/24 06:48 Respiratory Assessment Respiratory Assessment - change house attendant: Respiratory Tract Infection Hx - change house attendant Hx Respiratory Tract Infection No 07/31/24 10:35 STOP Sleep Apnea STOP Sleep Apnea - change house attendant: STOP Sleep Apnea - change house attendant Hx Hypertension No 07/31/24 10:35 Hx Sleep [...] Tobacco Use History Tobacco Use History - change house attendant: Tobacco Use History - change house attendant Tobacco Use Smoking Status Never smoker 07/31/24 10:35 Hx Tobacco Use No 07/31/24 10:35 Years Smoking Packs Smoked per Day Smoking Cessation Date was within the last 15 years Hx Smoking Cessation Date Hx Smoking Cessation Counseling Hematologic Medial History Hematologic Hx - change house attendant: Hematologic 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] and no additional complaints, except as documented. 08/04/24715 tony SURPLUS PROPERTY DISPOSAL AGENT> Date _ Do Castro CRNA Cosigner Signature: Date CC: ~ Signed [facility]04-11-2025 Evaluation note* Diagnosis Onset Date Resolution Status Admit Date Depression with anxiety acute A 2024 11:27am Goiter acute May 30 11:27am Obesity (BMI 30.0-34.9) acute A l 2024 11:27am Other obesity acute May 30, 2024 11:27am S/P gastric surgery acute May 30, 2024 11:27am Family history of colon cancer acute August 04, 2024 6:25am Hx of colonic polyps acute August 04, 2024 6:25am Right sided abdominal pain acute August 14, 2024 8:59am Cholelithiasis inactive August 14, 2024 8:59am Biliary dyskinesia acute August 192024 11:04am Right sided abdominal pain acute September 01, 2024 11:04am [facility] Work Phone: 1(891) 730-574103-12-2025 Evaluation note* Diagnosis Onset Date Resolution Status [...] colonic polyps acute August 04, 2024 6:25am [facility] Work Phone: 1(393) 854-295703-12-2025 Evaluation note* Diagnosis Onset Date Resolution Status Admit Date Depression with anxiety acute 2024 8:32am Obesity (BMI 30.0-34.9) acute 2024 8:32am Other obesity acute April 30, 2024 8:32am S/P gastric surgery acute April 30, 2024 8:32am Depression with anxiety acute A [facility]2024 11:27am Goiter acute May 30 11:27am Obesity (BMI 30.0-34.9) acute A [facility]2024 11:27am Other obesity acute May 30, 2024 11:27am S/P gastric surgery acute May 30, 2024 11:27am Family history of colon cancer acute August 04, 2024 6:25am Hx of colonic polyps acute August 04, 2024 6:25am Cholelithiasis acute August 14, 2024 8:59am [facility] Work Phone: 1(214) 648-745503-12-2025 Evaluation note* Diagnosis Onset Date Resolution Status Admit Date Depression with anxiety acute 2024 8:32am Obesity (BMI 30.0-34.9) acute 2024 8:32am Other obesity acute April 30, 2024 8:32am S/P gastric surgery acute April 30, 2024 8:32am Depression with anxiety acute A 2024 11:27am Goiter acute May 30 11:27am Obesity (BMI 30.0-34.9) acute A pri2024 11:27am Other obesity acute May 30, 2024 11:27am S/P gastric surgery acute May 30, 2024 11:27am Family history of colon cancer acute August 04, 2024 6:25am Hx of colonic polyps acute August 04, 2024 6:25am Cholelithiasis acute August 14, 2024 8:59am Right sided abdominal pain acute August 14, 2024 8:59am [facility] Work Phone: 1(523) 582-440102-02-2025 Consult note Author Juancarlos Wheatley [facility] Note Date/Time August 04, 2024 8:12 am [facility] Medical Records Department [address] [place] [address] Anesthesia Postop Eval I 08/04/24809 MR#: [id number] Acct: [id number] Name: ALFONSO VERDUGO PASCALE Rep #:[id number] : 1960 64 From: Juancarlos Wheatley PCP: Dr. Millie Payton MD Status:REG [facility] Y Race: C Location: [place] [address] Anesthesia: Postop Eval I Current Vital Signs [...] Juancarlos Cohenignmaricruz Signature: Date CC: ~ Signed [facility] Work Phone: 1(910) 686-910611-13-2023 Miscellaneous Notes* Telephone Encounter - Bo Shipley - 01/01/2023 9:38 AM EST ECHO order faxed to [facility] at [phone]. Bo Shipley documented in this encounterUniversity Hospitals [facility] Center11-07-2023 Miscellaneous Notes* Telephone Encounter - Bo Shipley - 12/26/2022 12:14 PM EST Office notes faxed to Dr. Payton ([phone]) and Dr. Brush's ([phone])offices. Bo Shipley documented in this encounterUniversity Hospitals Tripoint Medical Center11-07-2023 History of Present illness Narrative* Susan Marin - 12/26/2022 10:43 AM EST EVENT MONITOR DISPOSABLE PATCH INSTRUCTIONS [facility] [id number] Skin prepped and cleansed with alcohol Patch secured to prepped area Monitor Activated Serial #: [id number] Patient Instructed: Prescribed order timeframe Bathing guidelines Usage of event button and diary documentation Return of monitor at the end of prescribed order Call with problems [phone] or [phone]. [phone] Patient expresses a good understanding of instructions Susan Marin documented in this encounterUniversity Hospitals Tripoint Medical Center11-07-2023 Instructions* Patient Instructions* Vinh Kapadia MD - [...] 3rd hand smoke.N/A #5 Weight loss : [place] BMI (Body Mass Index = weight (kg) [...] Face time was minutes. documented in this encounterUniversity Hospitals Tripoint Medical Center11-07-2023 History of Present illness Narrative* Vinh Kapadia MD - 12/26/2022 8:45 AM EST Images from the original note were not included. [facility] Department of Cardiovascular Medicine SECTION OF CLINICAL CARDIOLOGY OUTPATIENT VISIT DATE December 26, 2022 OUTPATIENT VISIT TYPE NEW PRIMARY CARE PHYSICIAN: Millie Payton (Evelio) [address] [place] [address] REFERRING PHYSICIAN: Millie Payton (Evelio) [address] [facility] [address] CHIEF COMPLAINT: Abnormal ECG - Cardiac clearance HISTORY OF PRESENT ILLNESS: NURSING INTAKE: Ms. Verdugo is a 62 year old female from [place], [place] here today for cardiovascular evaluation related to abnormal EKG reading. She mentions that before she starts a medication from her TUB RIDER for weight loss, her OB had her get an EKG done which came back abnormal. Her OB wanted her to see cardiology to ensure everything is okay from a cardiac standpoint prior to starting this medication. This isher first time seeing a windmill technician. 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 Referred by TUB RIDER for cardiac clearance prior to initiating phentamine [...] 3rd hand smoke.N/A #5 Weight loss : [place] BMI (Body Mass Index = weight (kg) [...] - continue to follow up with PCP, TUB RIDER and RTC as needed Cc: Millie Brush MD CONTACT INFORMATION:Vinh Kapadia M.D, MPH, FACC [place] [facility] Department of Cardiovascular Medicine [facility] Desk [place] [address] Office Office Appointments: [phone] documented in this encounterUniversity Hospitals Tripoint Medical Center08-17-2023 NotePap Smear Specimen AdequacyAugust 2022 11:59pmComment.Satisfactory for evaluation. Endocervical and/or squamous metaplasticcells (endocervical component)are present.[facility] INTER[facility]ACED A#[id number] Hospital [facility] EastComment on above: Satisfactory for evaluation. Endocervical and/or [...] sure are scan is good. Please call [phone] to discuss results and any follow up. * Telephone Encounter - Nancy Cline [facility] - 02/28/2022 9:33 AM EST CV PHONE Name of caller : Alfonso Relationship to patient : Self If not self Will need patient permission to release results or disclose health information with called documented in fyi. Patient identified by Name and Date of . ( Alfonso Verdugo, 1960). Yes Number to return call [phone] Reason for Call: Results: Results Calling office requesting result of MRI test, completed on 02-21-22. Please call patient back at above. Thank you calling [facility]. You will receive a return call within 48hours ( or 2 business days if close to the weekend). If you feel that this is an urgent issue and needs immediate attention, it is recommended that you contact your primary care provider office or proceed to your nearest Urgent Care Center of Emergency Room ED for evaluation/treatment. documented in this encounterUniversity Hospitals Tripoint Medical Center01-03-2023 History of Present illness Narrative* Leticia Alston [...] RT Allie(Madyson) February 21, 2022 9:38 AM documented in this encounterUniversity Hospitals Tripoint Medical Center09-20-2022 Miscellaneous Notes* Telephone Encounter - Leidy Olsen RN - 11/08/2021 4:21 PM EDT Called and left VM reiterating F policy regarding imaging scheduled at an outside facility. The completion of a Prior Authorization is the responsibility of chosen provider. Office number provided with any further questions or concerns. Leidy Olsen RN * Telephone Encounter - Abbi Harrison Pss - 11/07/2021 11:08 AM EDT CV PHONE Name of caller : Alfonso Relationship to patient : Self If not self Will need patient permission to release results or disclose health information with called documented in fyi. Patient identified by Name and Date of . ( Alfonso Verdugo, 1960). Yes Number to return call [phone] Reason for Call : Prior Authorization : Prior Authorization Patient calling to seek Insurance Pre-Authorization number from staff providers office. Patient hasphysical hard copy of order and is attempting to schedule MRI/MRA Brain at [facility] in [facility] but states both the hospital and the insurance company [employer] request a pre-authorization number. Advised patient this would not be the usual process to seek through the doctor's office and provided patient with additional phone number and suggestion for possible solutions but patient would also prefer a call back as well at [phone]. documented in this encounterUniversity Hospitals Tripoint Medical Center08-12-2022 NotePap Smear Specimen AdequacyAugust 2021 4:50pmComment.Satisfactory for evaluation. Endocervical and/or squamous metaplasticcells (endocervical component)are present.[facility] A#[id number] Hospital [facility] Work Phone: Comment on above:Satisfactory for evaluation. [...] 09, 2021 11:42 AM documented in this encounterUniversity Hospitals Tripoint Medical Center06-21-2022 History of Present illness Narrative* Romero Pelletier MD - 08/09/2021 10:00 AM EDT Images from the original note were not included. [facility] Initial Visit Consultation is requested by: SELF PCP: Song Figueroa (Evelio) [address] [place] [address] [place] [address] CEREBROVASCULAR HISTORY Alfonso Verdugo is a 61 [...] Laid down, and saw an ENT in [place], and was given exercises. After 4 days, [...] have had a 'mini stroke' 03/10/2019 at [facility], after falling and hitting head a few [...] results found for: HBA1C IMAGING CT head [facility] CT head 03/19/2019 Patient Entered Questionnaires [...] Noncerebrovascular Concern: Yes Details: Traumatic SDH Modified Barron Score: Score: 0 NIH Stroke Scale: LOC: [...] which included preparing to see the patient, [id number] patient care, completing clinical documentation, obtaining and/or reviewing separately obtained history, performing a medically appropriate examination, counseling and educating the patient/family/caregiver and ordering medications, tests, or procedures SIGNATURE Romero Pelletier M.D. Staff, [facility] August 09, 2021 2:06 PM CC SELF Song Figueroa (Evelio) [address] [place] [address] documented in this encounterSelect Medical Cleveland Clinic [facility] Hospital, Avonlt note Author Do Castro [facility] Note Date/Time August 04, 2024 7:16 am [facility] Medical Records Department [address] [place] [address] Pre-Anesthesia Evaluation 08/04/24 0710 MR#: [id number] Acct: [id number] Name: ALFONSO VERDUGO Rep #:[id number] : 1960 64 From: Do martins CRNA PCP: Dr. Millie Payton MD Status:REG SDC Y Race: C Location: [place] [address] ASA Classification* ASA Classification ASA Classification: 2 [...] Procedure(s): COLONOSCOPY-OA Anesthesia History Anesthesia History - change house attendant: Anesthesia History - change house attendant Hx Hospitalization No 07/31/24 10:35 Any Problems [...] take am of surgery PONV PONV - change house attendant: PONV - change house attendant Female Yes 07/31/24 10:35 HX of Motion [...] 08/04/24 06:48 Respiratory Assessment Respiratory Assessment - change house attendant: Respiratory Tract Infection Hx - change house attendant Hx Respiratory Tract Infection No 07/31/24 10:35 STOP Sleep Apnea STOP Sleep Apnea - change house attendant: STOP Sleep Apnea - change house attendant Hx Hypertension No 07/31/24 10:35 Hx Sleep [...] Tobacco Use History Tobacco Use History - change house attendant: Tobacco Use History - change house attendant Tobacco Use Smoking Status Never smoker 07/31/24 10:35 Hx Tobacco Use No 07/31/24 10:35 Years Smoking Packs Smoked per Day Smoking Cessation Date was within the last 15 years Hx Smoking Cessation Date Hx Smoking Cessation Counseling Hematologic Medial History Hematologic Hx - change house attendant: Hematologic Medical Hx - receiving supervisor Hx of Blood Transfusion No 07/31/24 10:35 [...] confused, unrespo /Reproduction History /Reproductive History - change house attendant: /Reproductive Hx- change house attendant Hx Now No 07/31/24 10:35 Gestational Age (in weeks): EDC: Hx Hx Para Hx Section SAB No 07/31/24 10:35 Active Medications Active Medications: Current Medications Generic Name Dose Route Start Last Admin Trade Name Freq PRN Reason Stop Dose Admin Lactated Ringer's 1,000 mls @ 30 mls/hr 08/04/24 06:45 08/04/24 06:52 IV 30 mls/hr .[id number] SUKHDEV Administration PFSH Medical History Wears glasses [...] documented. 08/04/24 0716 <Electronically signed by Do Kobyla nski SURPLUS PROPERTY DISPOSAL AGENT> Date _ Do Castro SURPLUS PROPERTY DISPOSAL AGENT Cosigner Signature: Date CC: ~ Signed [facility] Work Phone: Evaluation note* Diagnosis Transient diplopia- Primary Diplopia Transient cerebral ischemia, unspecified type documented in this encounter [facility] CenterEvaluation note* Diagnosis Onset Date Resolution Status Depression with anxiety acut e Fecal incontinence acute HPV test positive acute Obesity acute Encounter for routine gynecological examination noneactive [facility] Work Phone: Evaluation note* Diagnosis Onset Date Resolution Status Abnormal Pap smear of cervix acute HPV test positive acute Encounter for routine gynecological examination noneactive [facility] Work Phone: Evaluation note* Diagnosis Onset Date Resolution Status Abnormal Pap smear of cervix acute HPV test positive acute Encounter for routine gynecological examination noneactive Abnormal Pap smear of cervix acute HPV test positive acute [facility] Work Phone: Evaluation note* Diagnosis Transient diplopia Diplopia Transient cerebral ischemia, unspecified type documented in this encounter [facility] CenterEvaluation note* Diagnosis Abnormal ECG- Primary Nonspecific abnormal electrocardiogram (ECG) (EKG) Encounter for screening for cardiovascular disorders Screening for other and unspecified cardiovascular conditions [facility] Diagnosis Abnormal ECG- Primary Nonspecific abnormal electrocardiogram (ECG) (EKG) Encounter for screening for cardiovascular disorders Screening for other and unspecified cardiovascular conditions Class 2 obesity due to excess calories without serious comorbidity with body mass index (BMI) of 35.0 to 35.9 in adult Mixed hyperlipidemia documented [facility] this [facility] Diagnosis Onset Date Resolution Status Abnormal Pap smear of cervix acute HPV test positive acute [facility] Work Phone: History and physical note Author Maryellen Lopez [facility] Note Date/Time August 04, 2024 7:26 am [facility] Medical Records Department [address] [place] [address] History & Physical Exam 08/04/24 0720 MR#: [id number] Acct: [id number] Name: ALFONSO VERDUGO Rep #:[id number] : 1960 64 From: Maryellen Lopez MD PCP: Dr. Millie Payton MD Status:[facility] Location: [place] [address] HPI - General General Date of Service: [...] blood. Patient denies any chronic abdominal pain/nausea/vomiting/reflux. [facility] Medical History Wears glasses Wears contact lenses [...] Rash Discharge Is Pt Admitted From a Penitentiary, or a Custodial: No After D/C, Where Do you Plan to Go: Return Home From the [facility] History Number of Risk Factors: 4 Vital [...] Payton MD; Dr. Maryellen Lopez MD~ Signed [facility] Work Phone: Hospital Discharge instructions Additional Instructions Call Dr. Roberts office when you are discharged here for your appointment tomorrow. Return with worsening symptoms or concerns.[facility] Work Phone: Reason for referral (narrative)No reason for referral information availableWEast [facility] Work Phone: Summary Purpose Family History Relationship Condition Age at Onset Recorded Date/T bren grandmother Malignant neoplasm of breast Unknown grandfather Diabetes mellitus Unknown Advance Directives Advance Directive Response Recorded Date/ Time Advance Directives No January 5:11pm Living Will No September 17, 2019 12:46pm Power of Occupational Therapy Professor No September 16 0 12:46pm Advance Directive Response Recorded Date/ Time Advance Directives No January 4:11pm Living Will No September 17, 2019 11:46am Power of Occupational Therapy Professor No September 16 0 11:46am Advance Directive Response Recorded Date/ Time Advance Directives No March 2:30pm Do you have a Healthcare Power of Occupational Therapy Professor? No July 31, 2024 10:35am Advance Directive Response Recorded Date/ Time Do you have a Healthcare Power of Occupational Therapy Professor? No July 31, 2024 10:35am Do you have a Healthcare Power of Occupational Therapy Professor? No August 13, 2024 12:45pm Advance Directives No March 2:30pm Advance Directive Response Recorded Date/ Time Do you have a Healthcare Power of Occupational Therapy Professor? No July 31, 2024 10:35am Do you have a Healthcare Power of Occupational Therapy Professor? No August 13, 2024 12:45pm Do you have a Healthcare Power of Occupational Therapy Professor? No August 20, 2024 9:59pm Advance Directives No March 2:30pm Reason for Referral Specialty Diagnoses / Procedures Referred By Contac t Referred To Contact MR IMAGING Diagnoses Transient diplopia Transient cerebral ischemia, unspecified type Procedures MRA BRAIN WO IVCON MRA, HEAD W/O CONTRAST Romero Pelletier MD [address] [place] [address] Mr Imaging Referral ID Status Reason Start Date Expiration Date Visits Requested Visits Authorized [id number] Pending Review Auto-Generat ed Referral 08/09/2021 09/08/2022 1 1 Specialty Diagnoses / Procedures Referred By Contac t Referred To Contact MR IMAGING Diagnoses Transient diplopia Transient cerebral ischemia, unspecified type Procedures MRI BRAIN WO IVCON MRI BRAIN BRAIN STEM W/O CONTRAST MATERIAL Romero Pelletier MD [address] [place] [address] Mr Imaging Referral ID Status Reason Start Date Expiration Date Visits Requested Visits Authorized [id number] Pending Review Auto-Generat ed Referral 08/09/2021 09/08/2022 1 1 Specialty Diagnoses / Procedures Referred By Contac t Referred To Contact MR IMAGING Diagnoses Transient diplopia Transient cerebral ischemia, unspecified type Procedures MRI BRAIN WO IVCON MRI BRAIN BRAIN STEM W/O CONTRAST MATERIAL Romero Pelletier MD [address] [place] [address] Mr Imaging [place] [address] Referral ID Status Reason Start Date Expiration Date V isits Requested Visits Authorized [id number] Closed Auto-Generate d Referral 11/07/2021 05/06/2022 1 1 Specialty Diagnoses / Procedures Referred By Contac t Referred To Contact Procedures CARDIOVASCULAR MEDICINE OP FOLLOW UP APPT ORDER Vinh Kapadia MD [address] [place] [address] Referral ID Status Reason Start Date Expiration Date Visits Requested Visits Authorized [id number] Ref Not Required PCP Requested Referral 12/26/2022 12/26/2023 1 1 Specialty Diagnoses / Procedures Referred By Contac t Referred To Contact [facility] Diagnoses Abnormal ECG Encounter for screening for cardiovascular disorders Procedures ECHO ECHO TTHRC R-T 2D W/WOM-MODE COMPL SPEC&COLR D Kang Chete, MD [address] [place] [address] [facility] [address] [place] [address] Referral ID Status Reason Start Date Expiration Date Visits Requested Visits Authorized [id number] Pending Review Auto-Generat ed Referral 12/26/2022 12/26/2023 1 1 Chief Complaint and Reason for Visit Chief Complaint SCREENING Annual (TUB RIDER) Reason for Visit Depression with anxi ety Fecal incontinence HPV test positive Obesity Encounter for routine gynecological examination Chief Complaint SCREENING Annual (TUB RIDER) ABN MAMM Reason for Visit Depression with anxi ety Fecal incontinence HPV test positive Obesity Encounter for routine gynecological examination Chief Complaint Annual (TUB RIDER) Reason for Visit Abnormal Pap smear o f cervix HPV test positive Encounter for routine gynecological examination Chief Complaint Annual (TUB RIDER) SCREENING Colposcopy Body mass index [BMI] 37.0-37.9, [...] rlq pain August 13, 2024 10:4 1am Chief Complaint Admit Date 1 M med check April 30, 2024 8:3 2am 3 M FU May 30, 2024 11: 27am rlq pain August 13, 2024 10:4 1am ER F/U August 14, 2024 8:59 am Reason for Visit Admit Date Depression with [...] colonic polyps August 04, 2024 6:2 5am Cholelithiasis August 14, 2024 8:59 am Chief Complaint Admit Date 1 M med check April 30, 2024 8:3 2am 3 M FU May 30, 2024 11: 27am rlq pain August 13, 2024 10:4 1am ER F/U August 14, 2024 8:59 am ABD PAIN August 20, 2024 9:14p m Reason for Visit Admit Date Depression with [...] colonic polyps August 04, 2024 6:2 5am Cholelithiasis August 14, 2024 8:59 am Right sided abdominal pain August 14 8:59am Chief Complaint Admit Date 3 M FU May 30, 2024 11: 27am rlq pain August 13, 2024 10:4 1am ER F/U August 14, 2024 8:59 am ABD PAIN August 20, 2024 9:14p m ER FU RT SIDE PAIN CT SCAN September 01 11:04am Reason for Visit Admit Date Depression with anxiety May 30, 2024 11:27am Goiter May 30, 2024 11: 27am Obesity (BMI 30.0-34.9) May 30, 2024 11:27am Other obesity May 30, 2024 11: 27am S/P gastric surgery May 30, 2024 11: 27am Family history of colon cancer July 6:25am Hx of colonic polyps August 04, 2024 6:2 5am Right sided abdominal pain August 14 8:59am Cholelithiasis August 14, 2024 8:59 am Biliary dyskinesia September 01, 2024 11:0 4am Right sided abdominal pain September 01 11:04am Chief Complaint Admit Date 3 M FU May 30, 2024 11: 27am rlq pain August 13, 2024 10:4 1am ER F/U August 14, 2024 8:59 am ABD PAIN August 20, 2024 9:14p m ER FU RT SIDE PAIN CT SCAN September 01 11:04am 3 M FU *copay $20 September 08, 2024 3:47 pm Additional Source Comments INFORMATION SOURCE (unrecogn ized section and content) DATE CREATED AUTHOR 10/14/2020 [facility] DATE CREATED AUTHOR AUTHOR'S ORGANIZ ATION 12/30/2023 [facility] DATE CREATED AUTHOR AUTHOR'S ORGANIZ ATION 01/23/2024 [facility] DATE CREATED AUTHOR AUTHOR'S ORGANIZ ATION 07/18/2024 [facility] DATE CREATED AUTHOR AUTHOR'S ORGANIZ ATION 09/04/2024 [facility] Source Comments (unrecognize d section and content) In the event this informatio n is protected by the Federal Confidentiality of Alcohol and Drug Abuse Patient Records regulations: The Federal rules restrict any use of the information to criminally investigate or prosecute any alcohol or drug abuse patient.[facility] the event this information is protected by the Federal Confidentiality of Alcohol and Drug Abuse Patient Records regulations: The Federal rules restrict any use of the information to criminally investigate or prosecute any alcohol or drug abuse patient.[facility] the event this information is protected by the Federal Confidentiality of Alcohol and Drug Abuse Patient Records regulations: The Federal rules restrict any use of the information to criminally investigate or prosecute any alcohol or drug abuse patient.[facility] the event this information is protected by the Federal Confidentiality of Alcohol and Drug Abuse Patient Records regulations: The Federal rules restrict any use of the information to criminally investigate or prosecute any alcohol or drug abuse patient.[facility] the event this information is protected by the Federal Confidentiality of Alcohol and Drug Abuse Patient Records regulations: The Federal rules restrict any use of the information to criminally investigate or prosecute any alcohol or drug abuse patient.[facility] the event this information is protected by the Federal Confidentiality of Alcohol and Drug Abuse Patient Records regulations: The Federal rules restrict any use of the information to criminally investigate or prosecute any alcohol or drug abuse patient.[facility] the event this information is protected by the Federal Confidentiality of Alcohol and Drug Abuse Patient Records regulations: The Federal rules restrict any use of the information to criminally investigate or prosecute any alcohol or drug abuse patient.[facility] the event this information is protected by the Federal Confidentiality of Alcohol and Drug Abuse Patient Records regulations: The Federal rules restrict any use of the information to criminally investigate or prosecute any alcohol or drug abuse patient.[facility] Reason for Visit (unrecogniz ed section and content) Reason Comments New Patient Evaluation Specialty Diagnoses / Procedures Referred By Contact Referred To Contact Neurology / CEREBROVASCULAR Diagnoses Brain bleed (HCC) 9fell hit brain bleed now eposides where left eye wanders Procedures OFFICE/OUTPATIENT NEW MODERATE MDM 45-59 MINUTES NEW NI MEDICAL Self Romero Pelletier MD [address] [place] [address] Referral ID Status Reason Start Date Expiration Date V isits Requested Visits Authorized [id number] Authorized 07/22/2021 07/22/2022 4 4 Reason Comments Insurance Authorization / Imaging Order Reason Comments Results MRI Specialty Diagnoses / Procedures Referred By Contac t Referred To Contact MR IMAGING Diagnoses Transient diplopia Transient cerebral ischemia, unspecified type Procedures MRI BRAIN WO IVCON MRI BRAIN BRAIN STEM W/O CONTRAST MATERIAL Romero Pelletier MD [address] [place] [address] Mr Imaging [place] [id number] Referral ID Status Reason Start Date Expiration Date V isits Requested Visits Authorized [id number] Closed Auto-Generate d Referral 11/07/2021 05/06/2022 1 1 Reason Comments Event ZIO PATCH Reason Comments Release Of Medical Records Reason Comments Orders Care Teams (unrecognized sec tion and content) Pharmacy Grad Intern Relationship Specialty Start Date End Date Millie Payton MD [address] [facility] [address] [place] [phone] PCP - General Internal Medicine 08/09/21 Pharmacy Grad Intern Relationship Specialty Start Date End Date Millie Payton MD [address] [place] [address] [place] [phone] PCP - General Internal Medicine 08/09/21 Team [...] MD Attending Provider, Referr ing Provider Active Pharmacy Grad Intern Relationship Specialty Start Date End Date Millie Payton MD [address] [place] [phone] PCP - General Internal Medicine 08/09/21 Pharmacy Grad Intern Relationship Specialty Start Date End Date Millie Payton MD [address] [place] [phone] PCP - General Internal Medicine 08/09/21 Vinh Kapadia MD [address] [place] [address] Primary Staff Physician Cardiology 12/26/22 Pharmacy Grad Intern Relationship Specialty Start Date End Date Millie Payton MD [address] [phone] PCP - General Internal Medicine 08/09/21 Vinh Kapadia MD [address] [place], [place] [id number] Primary Staff Physician Cardiology 12/26/22 Pharmacy Grad Intern Relationship Specialty Start Date End Date Millie Payton MD [address] [phone] PCP - General Internal Medicine 08/09/21 Vinh Kapadia MD [address] [place], [place] [id number] Primary Staff Physician Cardiology 12/26/22 Team Status: [...] August 13, 2024 End: August 13, 2024 Team Status: Inactive Member Role Status Dates Dr. Millie Payton MD Primary Care Provider Active Start: August 14, 2024 End: August 14, 2024 Dr. Millie Payton MD Referring Provider Active Start: August 14, 2024 End: August 14, 2024 Dr. Jeet Roberts MD Attending Provider Active Start: August 14, 2024 End: August 14, 2024 Team Status: Active Member Role/Relationship Status Dates Dr. Millie Payton MD Primary Care Provider Active Team Status: Inactive Member Role/Relationship Status Dates Dr. Millie Payton MD Primary Care Provider Active Start: April 30, 2024 End: April 30, 2024 Dr. Millie Payton MD Referring Provider Active Start: April 30, 2024 End: April 30, 2024 Dr. Rose Marie Brush MD Attending Provider Active Start: April 30, 2024 End: April 30, 2024 Team Status: Inactive Member Role/Relationship Status Dates Dr. Millie Payton MD Primary Care Provider Active Start: May 30, 2024 End: May 30, 2024 Dr. Millie Payton MD Referring Provider Active Start: May 30, 2024 End: May 30, 2024 Dr. Rose Marie Brush MD Attending Provider Active Start: May 30, 2024 End: May 30, 2024 Team Status: Inactive Member Role/Relationship Status Dates Dr. Millie Payton MD Primary Care Provider Active Start: August 04, 2024 End: August 04, 2024 Dr. Millie Payton MD Referring Provider Active Start: August 04, 2024 End: August 04, 2024 Dr. Maryellen Lopez MD Attending Provider Active Start: August 04, 2024 End: August 04, 2024 Team Status: Active Member Role/Relationship Status Dates Dr. Millie Payton MD Primary Care Provider Active Start: August 04, 2024 Dr. Millie Payton MD Referring Provider Active Start: August 04, 2024 Dr. Maryellen Lopez MD Attending Provider Active Start: August 04, 2024 Dr. Maryellen Lopez MD Other Provider Active S tart: August 04, 2024 Team Status: Inactive Member Role/Relationship Status Dates Dr. Mich Wheatley DO Attending Provider Active Start: August 13, 2024 End: August 13, 2024 Dr. Mich Wheatley DO Emergency Provider Active Start: August 13, 2024 End: August 13, 2024 Dr. Millie Payton MD Primary Care Provider Active Start: August 13, 2024 End: August 13, 2024 Team Status: Inactive Member Role/Relationship Status Dates Dr. Millie Payton MD Primary Care Provider Active Start: August 14, 2024 End: August 14, 2024 Dr. Millie Payton MD Referring Provider Active Start: August 14, 2024 End: August 14, 2024 Dr. Jeet Roberts MD Attending Provider Active Start: August 14, 2024 End: August 14, 2024 Team Status: Inactive Member Role/Relationship Status Dates Dr. Millie Payton MD Primary Care Provider Active Start: August 20, 2024 End: August 20, 2024 Dr. Diego Mcdonald MD Referring Provider Active Sta rt: August 20, 2024 End: August 20, 2024 Dr. Diego Mcdonald MD Emergency Provider Active Sta rt: August 20, 2024 End: August 20, 2024 Team Status: Inactive Member Role/Relationship Status Dates Dr. Millie Payton MD Primary Care Provider Active Start: May 30, 2024 End: May 30, 2024 Dr. Millie Payton MD Referring Provider Active Start: May 30, 2024 End: May 30, 2024 Dr. Rose Marie Brush MD Attending Provider Active Start: May 30, 2024 End: May 30, 2024 Team Status: Inactive Member Role/Relationship Status Dates Dr. Millie Payton MD Primary Care Provider Active Start: August 04, 2024 End: August 04, 2024 Dr. Millie Payton MD Referring Provider Active Start: August 04, 2024 End: August 04, 2024 Dr. Maryellen Lopez MD Attending Provider Active Start: August 04, 2024 End: August 04, 2024 Team Status: Active Member Role/Relationship Status Dates Dr. Millie Payton MD Primary Care Provider Active Start: August 04, 2024 Dr. Millie Payton MD Referring Provider Active Start: August 04, 2024 Dr. Maryellen Lopez MD Attending Provider Active Start: August 04, 2024 Dr. Maryellen Lopez MD Other Provider Active S tart: August 04, 2024 Team Status: Inactive Member Role/Relationship Status Dates Dr. Mich Wheatley DO Attending Provider Active Start: August 13, 2024 End: August 13, 2024 Dr. Mich Wheatley DO Emergency Provider Active Start: August 13, 2024 End: August 13, 2024 Dr. Millie Payton MD Primary Care Provider Active Start: August 13, 2024 End: August 13, 2024 Team Status: Inactive Member Role/Relationship Status Dates Dr. Millie Payton MD Primary Care Provider Active Start: August 14, 2024 End: August 14, 2024 Dr. Millie Payton MD Referring Provider Active Start: August 14, 2024 End: August 14, 2024 Dr. Jeet Roberts MD Attending Provider Active Start: August 14, 2024 End: August 14, 2024 Team Status: Inactive Member Role/Relationship Status Dates Dr. Millie Payton MD Primary Care Provider Active Start: August 20, 2024 End: August 20, 2024 Dr. Diego Mcdonald MD Attending Provider Active Sta rt: August 20, 2024 End: August 20, 2024 Dr. Diego Mcdonald MD Referring Provider Active Sta rt: August 20, 2024 End: August 20, 2024 Dr. Diego Mcdonald MD Emergency Provider Active Sta rt: August 20, 2024 End: August 20, 2024 Team Status: Inactive Member Role/Relationship Status Dates Dr. Millie Payton MD Primary Care Provider Active Start: September 01, 2024 End: September 01, 2024 Dr. Millie Payton MD Referring Provider Active Start: September 01, 2024 End: September 01, 2024 ARSALAN Guzmán Attending Provider Active S tart: September 01, 2024 End: September 01, 2024 Team Status: Active Member Role/Relationship Status Dates Dr. Millie Payton MD Primary Care Provider Active Start: September 08, 2024 ARSALAN Guzmán Attending Provider Active S tart: September 08, 2024 ARSALAN Guzmán Referring Provider Active S tart: September 08, 2024 Team Status: Inactive Member Role/Relationship Status Dates Dr. Millie Payton MD Primary Care Provider Active Start: September 08, 2024 End: September 08, 2024 Dr. Millie Pyaton MD Referring Provider Active Start: September 08, 2024 End: September 08, 2024 Dr. Rose Marie Brush MD Attending Provider Active Start: September 08, 2024 End: September 08, 2024 Goals (unrecognized section and content) Goals [...] BE BASED ON THE PRIMARY CLINICAL RECORDS. [facility] [employer] provides no warranty or guarantee of the accuracy or completeness of information in this document.
[2024-09-11 08:09] LABS: Calprotectin, Stool 25 ug/g (0-120)
== END | disposition home or self-care (01) ==
LOC: LABSPEC 14:26
PROVIDERS: PCP Internal Medicine
DX: K82.8 Other specified diseases of gallbladder (principal); R10.9 Unspecified abdominal pain
CPT/HCPCS: 83993

== ENCOUNTER → 2024-09-23 | Outpatient (CLI) | payer OTHER, SELFPAY ==
--- NOTE | 2024-09-23 17:29 | CT_ITS ---
PROCEDURE: ABDOMEN/PELVIS WITH CONTRAST 09/23/2024 REASON FOR EXAM: RIGHT SIDED PAIN Right lower quadrant pain. History of prior gastric sleeve surgery. TECHNIQUE: ABDOMEN/PELVIS WITH CONTRAST Coronal and Sagittal reconstruction series were provided. CONTRAST: Isovue-300 VOLUME: 100 mL One or more dose reduction techniques were used (e.g., Automated exposure control, adjustment of the mA and/or kV according to patient size, use of iterative reconstruction technique. RADIATION DOSE SUMMARY: CTDlvol: 16.8 mGy DLP: 1069.03 mGycm COMPARISON: Prior study dated August 20, 2024. FINDINGS: Lung bases: Lung bases are clear. Coronary artery calcification. Liver: Normal size. No mass. Gallbladder: No evidence of gallstones. Spleen: Normal size. Pancreas: Normal size without evidence of mass surrounding inflammation or ductal dilation. Adrenals: Unremarkable Kidneys: Normal renal sizes. No hydronephrosis. Bladder: Unremarkable Reproductive Organs: Unremarkable Bowel: Status post gastric sleeve procedure. Appendix: The appendix is not identified. There is no inflammatory process identified in the right lower quadrant to suggest appendicitis. Lymph nodes: Unremarkable. Vasculature: Mild diffuse atherosclerotic calcifications are noted. Peritoneum / Retroperitoneum: Unremarkable Bones: Mild degenerative changes. CT/Abdomen/Pelvis WITH Contrast IMPRESSION: No acute abnormality is seen. Reading Location: [id number]
--- OUTSIDE RECORDS SUMMARY | 2024-09-23 19:43 | XMS RPT_ITS | CCD ---
Author Organization [facility] CliniSyaz Care Team Providers Care Inside Sales Lead Name Role Phone Tata MA, Millie Primary Care Provider Dr. Millie Payton Primary Care Provider Tata, Dr. Vela Referring Provider Dr. Rose Marie Brush Attending Provider [phone] Millie Payton MD Primary Care Provider Tata MA, Millie Primary Care Provider Dr. Millie Payton Primary Care Provider Dr. Millie Payton Referring Provider [phone] Dr. Rose Marie Brush Attending Provider Tata [...] Unavailable MILLIE PAYTON MD Primary Care Unavailable LATOUJuan, MILLIE MA Consulting Unavailable LATOUF, MILLIE MA [...] MILLIE MA Primary Care Unavailable LATOUF, MILLIE MD Consulting Unavailable LATOUF, MILLIE MA Attending Unavailable LATOUF, MILLIE MD Admitting Unavailable PROVIDER, UNKNOWN Consulting Unavailable PROVIDER, UNKNOWN Consulting Unavailable PROVIDER, UNKNOWN Consulting Unavailable SELF, SELF Referring Unavailable JAYME ROCHA Attending Unavailable Tata MA, Dr. Vela Primary Care Provider Dr. Millie Payton MD Referring Provider Tracey Marquez Attending Provider Trudi MA, Dr. Trotter Attending Provider Jessica MA, Dr. Bojorquez Attending Provider Jessica [...] Dr. Millie Payton MD Referring Provider Dr. Rose Marie Brush MD Attending Provider Harry MA, Dr. Cortez Attending Provider Drake PARK MANAGER-C, Naty Attending Provider [phone] Vidal PARK MANAGER-C, Naty Referring Provider Latouf, Butros Primary Care Unavailable Drake, Naty Attending Unavailable Latouf, Butros Primary Care Unavailable Latouf, Butros Referring Unavailable Marcanthony, Rose Marie Attending Unavailable Latouf, Butros Primary Care Unavailable Latouf, Butros Referring Unavailable Tristan, Tracey Attending Unavailable BarkTracey jade Attending Unavailable Latouf, Butros Primary Care Unavailable Latouf, Butros Referring Unavailable Latouf, Butros Primary Care Unavailable Marcanthony, Rose Marie Attending Unavailable Marcanthony, Rose Marie Referring Unavailable Robotham, Maryellen Attending Unavailable Latouf, Butros Primary Care Unavailable Latouf, Butros Referring Unavailable Latouf, Butros Primary Care Unavailable Drake, Naty Referring Unavailable Drake, Naty Attending Unavailable Latouf, Butros Primary Care Unavailable Mich Wheatley Attending Unavailable Latouf, Butros Primary Care Unavailable Mcdonald, Diego Referring Unavailable Mcdonald, Diego Attending Unavailable Latouf, Butros Primary Care Unavailable Latouf, Butros Referring Unavailable Marcanthony, Rose Marie Attending Unavailable Latouf, Butros Primary Care Unavailable Marcanthony, Rose Marie Attending Unavailable Marcanthony, Rose Marie Referring Unavailable Latouf, Butros Primary Care Unavailable Drake, Naty Referring Unavailable Drake, Naty Attending Unavailable Wanek, Jeet A Referring Unavailable Wanek, Jeet A Attending Unavailable Latouf, Butros Primary Care Unavailable Wanek, Jeet A Attending Unavailable Latouf, Butros Primary Care Unavailable Latouf, Butros Referring Unavailable Robotham, Maryellen Attending Unavailable Robotham, Maryellen Consulting Unavailable Latouf, Butros Primary Care Unavailable Latouf, Butros Referring Unavailable Latouf, Butros Referring Unavailable Latouf, Butros Primary Care Unavailable Drake, Naty Attending Unavailable Latouf, Butros Primary Care Unavailable Latouf, Butros Referring Unavailable Marcanthony, Rose Marie Attending Unavailable Tracey Hudson Attending Unavailable Latouf, Butros Primary Care Unavailable Latouf, Butros Referring Unavailable Latouf, Butros Primary Care Unavailable Latouf, Butros Referring Unavailable Marcanthony, Rose Marie Attending Unavailable Latouf, Butros Primary Care Unavailable Latouf, Butros Referring Unavailable Marcanthony, Rose Marie Attending Unavailable Latouf, Butros Primary Care Unavailable Rose Marie Brush Attending Unavailable Millie Payton Referring Unavailable Allergies Allergy Classification Reported Allergen(s) Allergy Type Date of Onset Reaction(s) Facility (3 sources) Penicillins; Translations: [PENICILLINS] Drug Intolerance 6 [facility] (10 sources) Sulfonamides (Antibiotic); Translations: [SULFA (SULFONAMIDE ANTIBIOTICS)] Drug Allergy 3 Rash, Itching [facility] (12 sources) Penicillins Propensity to adverse reactions 1 [facility] (12 sources) Sulfonamides (Antibiotic) Propensity to adverse reactions 1 [facility] (7 sources) Penicillins Drug Intolerance 6 [facility] (1 source) Penicillin Drug Allergy [facility] (1 source) Sulfonamides (Antibiotic) Drug allergy (disorder) [facility] (1 source) Penicillins Drug allergy (disorder) 5 [facility] (1 source) Sulfonamides (Antibiotic) Drug allergy (disorder) 5 [facility] Repository Medications Current Medications Medication Drug Class(es) Dates Sig (Normalized) Sig (Original) cholecalciferol 0.05 mg oral capsule (7 sources) Vitamin D Start: 07-31-2024 take 1 [...] / oxyCODONE hydrochloride 5 mg oral tablet (13 sources) Opioid Agonist Start: 01-29-2014 End: 03-31-2019 Oxycodone-Acetamino phen 1 TABLET tablet Discontinued 2 {tbl} PO EVERY 4 HOURS NEEDED as needed for Moderate-Severe pain 10 January 29, 2014 1:00am March 31, 2019 9:47am Start: 01-29-2014 End: 03-31-2019 take 2 tablets by mouth every four hours as needed Oxycodone-Acetaminophen Discontinued 2 TABLET PO EVERY 4 HOURS NEEDED January 29, 2014 12:00am March 31, 2019 8:47am [id number] 200 actuat albuterol 0.09 mg/actuat metered dose [...] Comment on above: Take 1 capsule by [facility] three times daily as needed. ciprofloxacin 500 mg oral tablet (4 sources) Quinolone Antimicrobial Start: 08-20-2024 End: 09-08-2024 take 1 tablet by mouth twice daily Ciprofloxacin Hcl 500 mg tablet Discontinued 500 mg PO TWICE A DAY 14 0 August 20, 2024 12:00am September 08, 2024 3:56pm dicyclomine hydrochloride 10 mg oral capsule (3 sources) Anticholinergic Start: 09-01-2024 End: 09-08-2024 take 1 capsule by mouth three times daily Dicyclomine 10 mg capsule Discontinued 10 mg PO THREE TIMES A DAY 10 September 01, 2024 12:00am September 08, 2024 3:56pm methylPREDNISolone (4 sources) Corticosteroid Start: 10-12-2022 methylPREDNISolone (MEDROL DOSE-PACK) 4 mg Dose-Pack metroNIDAZOLE 500 mg oral tablet (4 sources) Nitroimidazole Antimicrobial Start: 08-20-2024 End: 09-08-2024 take 1 tablet by mouth every eight hours Metronidazole 500 mg tablet Discontinued 500 mg PO Q8H August 20, 2024 12:00am September 08, 2024 3:56pm miSOPROStol 0.2 mg oral tablet (14 sources) Prostaglandin E1 Analog Start: 01-29-2014 End: 03-31-2019 Misoprostol 200 MCG tablet Discontinued January 29, 2014 1:00am March 31, 2019 9:47am Start: 01-28-2014 End: 08-09-2021 Misoprostol Discontinued 2 D 2013 12:00am March 31, 2019 8:47am Comment on above: Take two tabs by franchesca th the night before and 4 hours prior to surgery naproxen 250 mg oral tablet (13 sources) Nonsteroidal Anti-inflammatory Drug Start: 014 End: take 250-500 mg by mouth every eight hours as needed for pain Naproxen 250 MG tablet Discontinued 250 - 500 mg PO EVERY 8 HOURS NEEDED as needed for MILD PAIN January 29, 2014 1:00am March 31, 2019 9:47am phentermine hydrochloride 37.5 mg oral capsule (13 sources) Sympathomimetic Amine Anorectic Start: 021 End: take 1 capsule by mouth once daily 30 minutes after breakfast Phentermine (Adipex-P) 37.5 mg capsule Discontinued 37.5 mg PO DAILY 30 July 09, 2020 12:00am August 31, 2020 2:07pm must administer 30 minutes before or 1-2 hours after breakfast 24 hr phentermine 15 mg / topiramate 92 mg extended release oral capsule (20 sources) Sympathomimetic Amine Anorectic Start: 025 End: Phentermine-Topiram ate (Qsymia) 15-92 mg capsule, ER multiphase 24 hr Discontinued 1 NMA PO Q24H August 20, 2024 12:00am September 08, 2024 3:56pm Start: 10-26-2023 End: 07-31-2024 Phentermine-Topiramate (Qsym ia) 15-92 mg capsule, ER multiphase 24 hr Discontinued 1 NMA PO Q24H 30 2 May 30, 2024 12:32pm July 31, 2024 10:27am Start: 09-14-2023 End: 10-26-2023 Phentermine-Topiramate (Qsym ia) 11.25-69 mg capsule, ER multiphase 24 hr Discontinued 1 NMA PO DAILY 30 30 October 26, 2023 11:33am October 26, 2023 1:25pm bmi 35 Start: 07-10-2023 End: 10-11-2023 Phentermine-Topiramate (Qsym ia) 7.5-46 mg capsule, ER multiphase 24 hr Discontinued 1 NMA PO DAILY 30 2 July 10, 2023 12:00am October 11, 2023 [...] Date Documented Da te Episodic/Chronic Abdominal pain (20 sources) Abdominal pain; Translations: [Unspecified abdominal pain] Onset: 09-01-2024 08-13-2024 Episodic Anxiety disorders (20 sources) Mixed anxiety and depressive disorder; Translations: [Other specified anxiety disorders] Chronic Comment on above: effexor Biliary tract disease (20 sources) Biliary calculus; Translations: [Calculus of gallbladder without cholecystitis without obstruction] Onset: 09-11-2024 08-13-2024 Episodic Blindness and vision defects (2 sources) Diplopia; Translations: [Diplopia] Episodic Disorders of lipid metabolism (1 source) Mixed hyperlipidemia; Translations: [Mixed hyperlipidemia] 12-26-2022 Chronic Menopausal disorders (8 sources) Abnormal perimenopausal bleeding; Translations: [Excessive bleeding in the premenopausal period] Onset: 11-01-2011 11-01-2011 Chronic Nutritional deficiencies (3 sources) Vitamin D deficiency, unspecified; Translations: [Vitamin D deficiency] Onset: 12-28-2023 Chronic Other and unspecified benign neoplasm (14 sources) History of polyp of colon; Translations: [History of colonic polyps] 08-04-2024 Episodic Other circulatory disease (4 sources) Elevated blood-pressure reading without diagnosis of hypertension; Translations: [Elevated blood-pressure reading, without diagnosis of hypertension] 08-20-2024 Episodic Other gastrointestinal disorders (13 sources) Incontinence of feces; Translations: [Full incontinence of feces] 09-30-2021 Episodic Comment on above: discussed kegel exer cises, incontrolmedical. Other gastrointestinal disorders (2 sources) Full incontinence of feces; Translations: [Full incontinence of feces] Episodic Other nutritional; endocrine; and metabolic disorders (20 sources) Obesity; Translations: [Obesity, unspecified] 09-30-2021 Chronic Comment on above: Nutrition plan: LCF 1200, 40-50 net carb nutritional plan. Using Lose it desmond. Has a goal to lose another 25 [...] man agement and plan for keto diet. Nutrition plan: LCF 1200, 40-50 net carb nutritional plan. Using Lose it desmond. Has a goal to lose another 25 in the next 6 months. Incorporate more vegetables; lean meats; protein. Medication plan: Qsymia- hold at present ; continue current dosing; tolerating well with no [...] out side due to weather, snow, ice. Other nutritional; endocrine; and metabolic disorders (2 sources) Obesity, unspecified; Translations: [Obesity, unspecified] Chronic Other nutritional; endocrine; and metabolic disorders (1 source) Obesity caused by energy imbalance; Translations: [Other obesity due to excess calories] 12-26-2022 Chronic Other nutritional; endocrine; and metabolic disorders (20 sources) Obese class I; Translations: [Class 1 obesity] 10-11-2023 Chronic Comment on above: SW- 230 03/08/23s/p 8 % weight reduction with nutritional and medication intervention recommendations.initial obesity assessment lab panel reviewed. cardiac reviewed echo and ekg Other nutritional; endocrine; and metabolic disorders (7 sources) Body mass index 30+ - obesity; Translations: [Body mass index (BMI) 37.0-37.9, adult] 10-11-2023 Chronic Regional enteritis and ulcerative colitis (4 sources) Crohn's disease of jejunum; Translations: [Crohn's disease of small intestine without complications] 08-20-2024 Chronic Residual codes; unclassified (20 sources) Positive measurement finding; Translations: [Positive test for human papillomavirus (HPV)] Episodic Comment on above: 21 and ascus , 23, repeat pap and hpv 2023 Residual codes; unclassified (14 sources) Family history of cancer of colon; [...] changes, repeat pap 2024. Residual codes; unclassified (8 sources) History of endometrial ablation; Translations: [Other specified postprocedural states] Onset: 08-07-2011 08-07-2011 Episodic Sexually transmitted infections (not HIV or hepatitis) (8 sources) Human papillomavirus deoxyribonucleic acid test positive, high risk on cervical specimen; Translations: [Cervical high risk human papillomavirus (HPV) DNA test positive] Onset: 08-12-2013 08-12-2013 Episodic Results Test Name Value Interpretation Reference Range Facility Calprotectin, Stoolon [address] 25 ug/g Normal 0-120 [facility] Comment on above: Result Comment: Conc entration Interpretation Follow-Up < 5 - 50 ug/g Normal None >50 -120 ug/g Borderline Re-evaluate in 4-6 weeks >120 ug/g Abnormal Repeat as clinically indicated Performed at: [facility] [id number] Machine Packager: Mayela Ceja MD, Phone: [phone] Performed By: #### L 7000.0700 #### [facility] [address] [place], [address] Calprotectin stoolOrdered By : Naty Drake on 09-08-2024 Calprotectin stool 25 ug/g 0-120 [facility] Comment on above: Concentration Interp retation Follow-Up< 5 - 50 ug/g Normal None>50 -120 ug/g Borderline Re-evaluate in 4-6 weeks >120 ug/g Abnormal Repeat as clinically indicatedPerformed at: - [facility] [id number] Director: Mayela Ceja MD, Phone: [phone] [facility] Office Visit Reporton 09-08-2024 [facility] Office Visit Report [facility] [address], [address] [place] [address] OFFICE VISIT Date of Service: 09/08/24 MR#: [id number] Acct: [id number] Name: ALFONSO VERDUGO Rep #: [id number] : 1960 Provider: Dr. Rose Marie florez MD Age/Sex: 64/F Location: [facility] [place] Status: Signed Intake Vital Signs 05/30/24 11:34 08/20/24 21:14 09/08/24 15:51 09/08/24 15:57 Height 5 ft 6 in 5 ft 6 in 5 ft 6 in 5 ft 6 in Weight: 214 lb BMI 34.5 BP 132/80 H Pulse 88 Intake Visit Reasons: 3 M FU *copay $20 Supervisor Customer Services Required: No Is patient in pain?: No Allergies Penicillins Adverse Reaction (Verified 09/08/24 15:56) Rash Sulfa (Sulfonamide Antibiotics) Adverse Reaction (Verified 09/08/24 15:56) Rash Medications ???Medication ???Instructions ???Recorded ???Confirmed ???Type venlafaxine 75 mg capsule,extended 75 mg PO DAILY #30 caps 05/30/24 09/08/24 Rx release 24 hr cholecalciferol (vitamin D3) 50 50 mcg PO DAILY 07/31/24 09/08/24 History mcg (2,000 unit) capsule levothyroxine 75 mcg tablet 75 mcg PO DAILY 07/31/24 09/08/24 History Last Menstrual Period: 02/19/11 Zika: Zika virus screening: Negative : No Have you fallen in the past year?: No PFSH PFSH Medical History (Updated 09/09/24 @ 17:[address] Rose Marie Brush MD) Right sided abdominal pain Wears glasses Wears contact lenses History of steroid therapy Thyroid disease Injury of head and neck Non-smoker History of edema History of echocardiogram Depression with anxiety Goiter Surgical History (Updated 09/08/24 @ 16:[address] Rose Marie Brush MD) Hx of colonoscopy History of endometrial ablation [...] home: Yes additional social history: Remarried to [employer]! 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 History 3 Elective abortions Hx Para 2 Spontaneous abortions 1 Hx # Term Pregnancies Ectopic pregnancies Hx # Pregnancies Multiple births # of living children Past Pregnancies Del. Date Name GA/Weeks Outcome Route Bth Weight [facility] Vasyl-1989 Unknown Yobany-1993 HPI 3 M FU *copay $20 Details: ALFONSO VERDUGO is a 64 year old Female presenting for a weight management follow up. she has had stomach troubles and had to be off the qsymia for the last month. she was having right sided intermittent pain and stopped her qsymia, has had evaluation in the ER, seen general surgery and Gi. she is looking to get a second opinion. once she has this figured out she will restart on weight managment medications. she has a trip to [place] to help her son move coming up. Female Reproductive History Last Menstrual Period: 02/19/11 [...] lymphadenopathy and trachea midline Thyroid: thyroid normal GI Other: tender along ruq right lower rib cage Musc Other: gross motor intact no deficits, full bilateral strength Skin General: no rashes or lesions noted Neuro Motor: muscle tone normal throughout Extrem General: no pedal edema Assessment and Plan Assessment and Plan (1) S/P gastric surgery: Status: Acute Comment: sleeve 2012. lost 55lbs weight rega (more content not included)... Normal [facility] Gastroenterology Visit Repor ton 09-01-2024 Gastroenterology Visit Report [facility] [address] [place] [address] OFFICE VISIT Date of Service: 09/01/24 MR#: [id number] Acct: [id number] Name: ALFONSO VERDUGO PASCALE Rep #: [id number] : 1960 Provider: ARSALAN verdin Age/Sex: 64/F [place] [facility] Status: Signed Intake Vital Signs 08/20/24 21:14 [...] cap PO Q24H 08/20/24 09/01/24 History mg capsule,[id number] multphas (Qsymia) dicyclomine 10 mg capsule 10 [...] home: Yes additional social history: Remarried to [employer]! 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 Female Reproductive History Menstrual Ab spontaneous: 1 HPI HPI Chief Complaint: ED f/u- gallstones Details: ALFONSO VERDUGO, is a 64 F who presents to the office today for establishment with [facility] regarding right sided abdominal pain [...] taking any analgesia, OTC or Rx. 08.04.24 Robotham-presents for screening colonoscopy due history of colon [...] with 1 polyp removed and called the silk snapper office and they state that she should not still be having pain from this. They advised her to go to the emergency department to be evaluated. Patient also notes that she is going on vacation next (more content not included)... Normal [facility] Abdomen/Pelvis W IV Cont ONL Yon 08-20-2024 Abdomen/Pelvis W IV Cont ONLY [facility] Services [address] [place], [place] [address] Abdomen/Pelvis W IV Cont ONLY MR#: [id number] Acct: [id number] Name: ALFONSO VERDUGO Rep #: [id number] : 1960 F 64 From: Blue Lombardo MD PCP: Dr. Millie Payton MD Status: REG ER Study: Abdomen/Pelvis W IV Cont ONLY Date of Exam: Exam# [id number] Ordering Dr: Diego Mcdonald MD PROCEDURE: ABDOMEN/PELVIS [...] secondary to infection. Advise correlation. Reading Location: [place] [address] CC: Dr. Millie Payton MD; Dr. Diego Mcdonald MD Geneticist: Signed Normal [facility] Absolute lymphocyte countOrd ered By: Diegoana Mcdonald on 08-20-2024 Lymphocytes Auto (Unsp spec) [#/Vol] 2.03 10*3/uL 0.83-4.51 [facility] Absolute neutrophil countOrd ered [facility]: [facility] Neutrophils (Bld) [#/Vol] 5.6 10*3/uL 2.0-7.7 [facility] Anion gap in Serum or Plasma Ordered By: [facility] on 08-20-2024 Anion gap [Moles/Vol] 10 mmol/L 5-15 [facility] Automated lymphocyte count a s percentage of total leukocytesOrdered By: [facility] Harry on 08-20-2024 Lymphocytes/100 WBC Auto (Unsp spec) 24.2 % 19-41 [facility] BUN/creatinine ratioOrdered By: [facility] on 08-20-2024 Urea nitrogen/Creatinine [Mass ratio] 29.0 mg/mg High 10- [facility] Basic Metabolic Profile (BMP )on 08-20-2024 BUN/CRE 29.0 RATIO High 12-08 [facility] Comment on above: Performed By: #### L 100.0100, L500.2500 #### [facility] Laboratory [facility] [place], [address] Calcium [Mass/Vol] 8.9 mg/dL Normal 7.6-11.0 [facility] Comment on above: Performed By: #### L 100.0100, L500.2500 #### [facility] Laboratory [address] [place], [address] Chloride [Moles/Vol] 106 mmol/L Normal 98-108 [facility] Comment on above: Performed By: #### L 100.0100, L500.2500 #### [facility] [address] [place], [address] CO2 [Moles/Vol] 23.6 mmol/L Normal 21.0-32.0 [facility] Comment on above: Performed By: #### L 100.0100, L500.2500 #### [facility] [address] [place], [address] Creatinine [Mass/Vol] 0.74 mg/dL Normal 0.70-1.20 [facility] Comment on above: Performed By: #### L 100.0100, L500.2500 #### [facility] [address] [place], [address] GAP 10 Normal 5-15 [facility] Comment on above: Performed By: #### L 100.0100, L500.2500 #### [facility] [address] [place], [address] GFR/1.73 sq M.predicted among non-blacks MDRD (S/P/Bld) [Vol rate/Area] 92 mL/min/{1.73_m2} Normal >60 [facility] Comment on above: Result Comment: mL/m in/1.73m2 CKD-EPI Creatinine Equation (2020) Performed By: #### L 100.0100, L500.2500 #### [facility] [address] [place], [address] Glucose [Mass/Vol] 100 mg/dL High 70-99 [facility] Comment on above: Performed By: #### L 100.0100, L500.2500 #### [facility] [address] [place], [address] Potassium [Moles/Vol] 4.1 mmol/L Normal 3.3-5.1 [facility] Comment on above: Performed By: #### L 100.0100, L500.2500 #### [facility] [address] [place], [address] Sodium [Moles/Vol] 140 mmol/L Normal 133-145 [facility] Comment on above: Performed By: #### L 100.0100, L500.2500 #### [facility] [address] [place], [address] Urea nitrogen [Mass/Vol] 21 mg/dL High 4-19 [facility] Comment on above: Performed By: #### L 100.0100, L500.2500 #### [facility] [address] [place], [address] Basophil percentageOrdered B y: Diego Mcdonald on 08-20-2024 Basophils/100 WBC (Bld) 0.6 % 0-[address] [facility] CBC W/Diff, Automatedon 07-0 Absolute Lymph 2.03 X10 3/uL Normal 0.83-4.51 [facility] Comment on above: Performed By: #### L 100.0100, L500.2500 #### [facility] [address] [place], [address] Absolute Neut 5.6 X10 3/uL Normal 2.0-7.7 [facility] Comment on above: Performed By: #### L 100.0100, L500.2500 #### [facility] [address] [place], [address] Basophils/100 WBC (Bld) 0.6 % Normal 0-[address] [facility] Comment on above: Performed By: #### L 100.0100, L500.2500 #### [facility] [address] [place], [address] Eosinophils/100 WBC (Bld) 1.4 % Normal 0-5 [facility] Comment on above: Performed By: #### L 100.0100, L500.2500 #### [facility] [address] [place], [address] Erythrocyte distribution width (RBC) [Ratio] 15.0 % High 11.6-14.6 [facility] Comment on above: Performed By: #### L 100.0100, L500.2500 #### [facility] [address] [place], [address] Hematocrit (Bld) [Volume fraction] 40.9 % Normal 37-47 [facility] Comment on above: Performed By: #### L 100.0100, L500.2500 #### [facility] [address] [place], [address] Hemoglobin (Bld) [Mass/Vol] 13.0 g/dL Normal 12.0-15.0 [facility] Comment on above: Performed By: #### L 100.0100, L500.2500 #### [facility] Laboratory [address] [place], [address] IG% 0.200 Normal 0.0-0.9 [facility] Comment on above: Result Comment: IG% - Immature Granulocytes (promyelocytes, myelocytes and metamyelocytes) > 1% indicates that a LEFT SHIFT is Present. Performed By: #### L 100.0100, L500.2500 #### [facility] Laboratory [address] [place], [address] Lymphocytes/100 WBC (Bld) 24.2 % Normal 19-41 [facility] Comment on above: Performed By: #### L 100.0100, L500.2500 #### [facility] Laboratory [address] [place], [address] MCH (RBC) [Entitic mass] 27.8 pg Normal 27.0-32.0 [facility] Comment on above: Performed By: #### L 100.0100, L500.2500 #### [facility] Laboratory [address] [place], [address] MCHC (RBC) [Mass/Vol] 31.8 g/dL Low 32-36 [facility] Comment on above: Performed By: #### L 100.0100, L500.2500 #### [facility] Laboratory [address] [place], [address] MCV (RBC) [Entitic vol] 87.4 fL Normal 81-99 [facility] Comment on above: Performed By: #### L 100.0100, L500.2500 #### [facility] Laboratory [address] [place], [address] Monocytes/100 WBC (Bld) 7.2 % Normal 0-10 [facility] Comment on above: Performed By: #### L 100.0100, L500.2500 #### [facility] Laboratory [address] [place], [address] Neutrophils/100 WBC (Bld) 66.4 % Normal 47-70 [facility] Comment on above: Performed By: #### L 100.0100, L500.2500 #### [facility] Laboratory [address] [place], [address] Nucleated RBC (Bld) [#/Vol] 0 10*3/uL Normal 0-5 [facility] Comment on above: Performed By: #### L 100.0100, L500.2500 #### [facility] Laboratory [address] [place], [address] Platelet mean volume (Bld) [Entitic vol] 10.2 fL Normal 6.2-12.0 [facility] Comment on above: Performed By: #### L 100.0100, L500.2500 #### [facility] Laboratory [address] [place], [address] Platelets (Bld) [#/Vol] 330 10*3/uL Normal 150-450 [facility] Comment on above: Performed By: #### L 100.0100, L500.2500 #### [facility] Laboratory [address] [place], [address] RBC (Bld) [#/Vol] 4.68 10*6/uL Normal 4.2-5.4 [facility] Comment on above: Performed By: #### L 100.0100, L500.2500 #### [facility] Laboratory [address] [place], [address] RDW SD 48.1 fl High 35.1-43.9 [facility] Comment on above: Performed By: #### L 100.0100, L500.2500 #### [facility] Laboratory [address] [place], [address] WBC (Bld) [#/Vol] 8.4 10*3/uL Normal 4.4-11.0 [facility] Comment on above: Performed By: #### L 100.0100, L500.2500 #### [facility] Laboratory [address] [place], [address] Carbon dioxide, total [Moles /volume] in Central venous bloodOrdered By: Diegoana Mcdonald on 08-20-2024 CO2 [Moles/Vol] 23.6 mmol/L 21.0-32.0 [facility] Chloride assayOrdered By: Ug o Mcdonald on 08-20-2024 Chloride [Moles/Vol] 106 mmol/L 98-108 [facility] Emergency Department Summary on 08-20-2024 Emergency Department Summary [facility] Medical Records Department [address] [place] [address] Emergency Department Summary 08/20/24 MR#: [id number] Acct: [id number] Name: ALFONSO VERDUGO #: [id number] : 1960 64 From: Diego Mcdonald MD [...] PO Q24H 08/20/24 Unknown H istory mg capsule,ext.lgmsfgq13mo multphas (Qsymia) Allergy/AdvReac Type Severity Reaction Status [...] Ox 97 Oxygen Delivery Method Room Air MDM [place] Lab Data Attestation: I reviewed the patient's [...] % (Auto) 66.4 Lymph % (Auto) 24.2 Thayer % (Auto) 7.2 Eos % (Auto) 1.4 [...] secondary to infection. Advise correlation. Reading Location: [facility]-2 CT of the abdomen pelvis with IV contrast was reviewed by me at 2209. The liver and spleen appear normal. Kidneys appear normal. The appendix appears normal. There appears to be sludge in the gallbladder. There is no thickening of the gallbladder wall. Awaiting formal read by radiologist. Radiologist interpreted as jejunal enteritis. Since this been going on for some time and she has no diarrhea we will treat with ciprofloxacin and metronidazole. Will have marketing secretary schedule appointment to see Dr. Bess after the . Patient was instructed no alcoholic beverages. Discharge Plan Triage Chief Complaint: Abd Pain ED Provider: HarryDiego Dx/Rx/DC Orders Clinical Impression: Regional enteritis of [...] 14 0RF (more content not included)... Normal [facility] Eosinophil percentageOrdered By: Diego Mcdonald on 08-20-2024 Eosinophils/100 WBC (Bld) 1.4 % 0-5 [facility] Erythrocyte distribution wid th ratioOrdered By: Diegoana Mcdonald on 08-20-2024 Erythrocyte distribution width (RBC) [Ratio] 15.0 % High 11.6-14.6 [facility] Erythrocyte distribution wid th standard deviationOrdered By: Diegoana Mcdonald on 08-20-2024 Erythrocyte distribution width (RBC) [Ratio] 48.1 fl High 35.1-43.9 [facility] Glomerular filtration rate ( GFR) estimation/1.73 sq m using serum, plasma, or whole bOrdered By: Diegoana Mcdonald on 08-20-2024 GFR/1.73 sq M.predicted among non-blacks MDRD (S/P/Bld) [Vol rate/Area] 92 mL/min/{1.73_m2} >60 [facility] Comment on above: mL/min/1.73m2 CKD-EP I Creatinine Equation (2020) Hematocrit Auto (Bld) [Volum e fraction]Ordered By: Diego Mcdonald on 08-20-2024 Hematocrit (Bld) [Volume fraction] 40.9 % 37-47 [facility] Hemoglobin measurementOrdere d By: Diegoana Mcdonald on 08-20-2024 Hemoglobin (Bld) [Mass/Vol] 13.0 g/dL 12.0-15.0 [facility] Immature granulocytes/100 WB C Auto (Bld)Ordered By: Diego Mcdonald on 08-20-2024 Immature granulocytes/100 WBC (Bld) 0.200 % 0.0-0.9 [facility] Comment on above: IG% - Immature Granu locytes (promyelocytes, myelocytes and metamyelocytes) > 1% indicates that a LEFT SHIFT is Present. MCV (mean corpuscular volume ) determinationOrdered By: Diego Mcdonald on 08-20-2024 MCV (RBC) [Entitic vol] 87.4 fL 81-[address] [facility] Mean corpuscular hemoglobin (MCH) determinationOrdered By: Diegoana Mcdonald on 08-20-2024 MCH (RBC) [Entitic mass] 27.8 pg 27.0-32.0 [facility] Mean corpuscular hemoglobin concentration (MCHC) determinationOrdered By: Diegoana Mcdonald on 08-20-2024 MCHC (RBC) [Mass/Vol] 31.8 g/dL Low 32-36 [facility] Mean platelet volume determi nationOrdered By: Diegoana Mcdonald on 08-20-2024 Platelet mean volume (Bld) [Entitic vol] 10.2 fL 6.2-12.0 [facility] Monocyte percentageOrdered B y: Diegoana Mcdonald on 08-20-2024 Monocytes/100 WBC (Bld) 7.2 % 0-[address] [facility] Neutrophil percentageOrdered By: Diegoana Mcdonald on 08-20-2024 Neutrophils/100 WBC (Bld) 66.4 % 47-70 [facility] Nucleated red blood cell per centageOrdered By: Diegoana Mcdonald on 08-20-2024 Nucleated RBC/100 WBC (Bld) [Ratio] 0 % 0-5 [facility] Platelet countOrdered By: [facility] Mcdonald on 08-20-2024 Platelets (Bld) [#/Vol] 330 10*3/uL 150-450 [facility] Potassium measurement (mass/ volume)Ordered By: Diegoana Mcdonald on 08-20-2024 Potassium (Unsp spec) [Mass/Vol] 4.1 mmol/L 3.3-5.1 [facility] RBC Auto (Bld) [#/Vol]Ordere d By: Diegoana Mcdonald on 08-20-2024 RBC (Bld) [#/Vol] 4.68 10*6/uL 4.2-5.4 [facility] Serum creatinine measurement (mass/volume)Ordered By: Diegoana Mcdonald on 08-20-2024 Creatinine [Mass/Vol] 0.74 mg/dL 0.70-1.20 [facility] Serum glucose measurement (m ass/volume)Ordered By: [facility] on 08-20-2024 Glucose [Mass/Vol] 100 mg/dL High 70-99 [facility] Serum or plasma calcium alisa urement (mass/volume)Ordered By: [facility] on 08-20-2024 Calcium [Mass/Vol] 8.9 mg/dL 7.6-11.0 [facility] Serum or plasma urea nitroge n measurement (mass/volume)Ordered By: [facility] on 08-20-2024 Urea nitrogen [Mass/Vol] 21 mg/dL High 4-19 [facility] Sodium levelOrdered By: [facility] on 08-20-2024 Sodium [Moles/Vol] 140 mmol/L 133-145 [facility] White blood cell (WBC) count Ordered By: [facility] on 08-20-2024 WBC (Bld) [#/Vol] 8.4 10*3/uL 4.4-11.0 [facility] Surgery Visit Reporton 08-14 Surgery Visit Report [facility] [address] [place] [address] OFFICE VISIT Date of Service: 08/14/24 MR#: [id number] Acct: [id number] Name: ALFONSO VERDUGO Rep #: [id number] : 1960 Provider: Dr. Jeet hurley MD Age/Sex: 64/F Location: [facility] Status: Signed Intake Vital Signs 08/13/24 10:41 [...] 75 mcg PO DAILY 07/31/24 08/14/24 History PFSH Medical History (Updated 08/14/24 @ 09:52 by Nancy Collier LPN) Right sided abdominal pain Wears [...] Const General: cooperative, healthy appearing and comfortable [facility] Head: normal to inspection Eyes General: appearance normal, both eyes and all related structures Neck Neck: normal visua (more content not included)... Normal [facility] Abdomen Limitedon 08-13-2024 Abdomen Limited [facility] Imaging Services [address], [place] [address] Abdomen Limited MR#: [id number] Acct: [id number] Name: ALFONSO VERDUGO Rep #: [id number] : 1960 F 64 From: Landon Camara PCP: Dr. Millie Payton MD Status: REG ER Study: Abdomen Limited Date of Exam: 08/13/24 Exam# [id number] Ordering Dr: Mich Wheatley DO PROCEDURE: ABDOMEN [...] acute cholecystitis. Nonspecific echogenic pancreas. Reading Location: [facility] CC: Dr. Millie Payton MD; Dr. Mich Wheatley DO Geneticist: Signed Normal [facility] Absolute lymphocyte countOrd ered By: Mich Wheatley on 08-13-2024 Lymphocytes Auto (Unsp spec) [#/Vol] 1.87 10*3/uL 0.83-4.51 [facility] Absolute neutrophil countOrd ered By: Mich Wheatley on 08-13-2024 Neutrophils (Bld) [#/Vol] 3.6 10*3/uL 2.0-7.7 [facility] Anion gap in Serum or Plasma Ordered By: Mich Wheatley on 08-13-2024 Anion gap [Moles/Vol] 12 mmol/L 5-15 [facility] Automated lymphocyte count a s percentage of total leukocytesOrdered By: Mich Wheatley on 08-13-2024 Lymphocytes/100 WBC Auto (Unsp spec) 31.3 % 19-41 [facility] BUN/creatinine ratioOrdered By: Mich Wheatley on 08-13-2024 Urea nitrogen/Creatinine [Mass ratio] 22.5 mg/mg High 10-20 [facility] Basophil percentageOrdered B y: Mich Wheatley on 08-13-2024 Basophils/100 WBC (Bld) 0.7 % 0-[address] [facility] Bilirubin Test strip Ql (U)O rdered By: Mich Wheatley on 08-13-2024 Bilirubin Ql (U) Negative Negative [facility] Bilirubin, totalOrdered By: Mich Wheatley on 08-13-2024 Bilirubin [Mass/Vol] 0.33 mg/dL 0.00-1.30 [facility] CBC W/Diff, Automatedon 06-2 -2024 Absolute Lymph 1.87 X10 3/uL Normal 0.83-4.51 [facility] Comment on above: Performed By: #### L 501.2450, L500.4050, L100.0100 ####[facility] [address] [place], [address] Absolute Neut 3.6 X10 3/uL Normal 2.0-7.7 [facility] Comment on above: Performed By: #### L 501.2450, L500.4050, L100.0100 ####[facility] [address] [place], [address] Basophils/100 WBC (Bld) 0.7 % Normal 0-[address] [facility] Comment on above: Performed By: #### L 501.2450, L500.4050, L100.0100 ####[facility] [address] [place], [address] Eosinophils/100 WBC (Bld) 2.2 % Normal 0-5 [facility] Comment on above: Performed By: #### L 501.2450, L500.4050, L100.0100 ####[facility] [address] [place], [address] Erythrocyte distribution width (RBC) [Ratio] 15.0 % High 11.6-14.6 [facility] Comment on above: Performed By: #### L 501.2450, L500.4050, L100.0100 ####[facility] [address] [place], [address] Hematocrit (Bld) [Volume fraction] 43.2 % Normal 37-47 [facility] Comment on above: Performed By: #### L 501.2450, L500.4050, L100.0100 ####[facility] [address] [place], [address] Hemoglobin (Bld) [Mass/Vol] 13.5 g/dL Normal 12.0-15.0 [facility] Comment on above: Performed By: #### L 501.2450, L500.4050, L100.0100 ####[facility] [address] [place], [address] IG% 0.300 Normal 0.0-0.9 [facility] Comment on above: Result Comment: IG% - Immature Granulocytes (promyelocytes, myelocytes and metamyelocytes) > 1% indicates that a LEFT SHIFT is Present. Performed By: #### L 501.2450, L500.4050, L100.0100 ####[facility] [address] [place], [address] Lymphocytes/100 WBC (Bld) 31.3 % Normal 19-41 [facility] Comment on above: Performed By: #### L 501.2450, L500.4050, L100.0100 ####[facility] [address] [place], [address] MCH (RBC) [Entitic mass] 27.7 pg Normal 27.0-32.0 [facility] Comment on above: Performed By: #### L 501.2450, L500.4050, L100.0100 ####[facility] [address] [place], [address] MCHC (RBC) [Mass/Vol] 31.3 g/dL Low 32-36 [facility] Comment on above: Performed By: #### L 501.2450, L500.4050, L100.0100 ####[facility] [address] [place], [address] MCV (RBC) [Entitic vol] 88.5 fL Normal 81-[address] [facility] Comment on above: Performed By: #### L 501.2450, L500.4050, L100.0100 ####[facility] [address] [place], [address] Monocytes/100 WBC (Bld) 6.0 % Normal 0-[address] [facility] Comment on above: Performed By: #### L 501.2450, L500.4050, L100.0100 ####[facility] [address] [place], [address] Neutrophils/100 WBC (Bld) 59.5 % Normal 47-70 [facility] Comment on above: Performed By: #### L 501.2450, L500.4050, L100.0100 ####[facility] [address] [place], [address] Nucleated RBC (Bld) [#/Vol] 0 10*3/uL Normal 0-5 [facility] Comment on above: Performed By: #### L 501.2450, L500.4050, L100.0100 ####[facility] [address] [place], [address] Platelet mean volume (Bld) [Entitic vol] 10.6 fL Normal 6.2-12.0 [facility] Comment on above: Performed By: #### L 501.2450, L500.4050, L100.0100 ####[facility] [address] [place], [address] Platelets (Bld) [#/Vol] 306 10*3/uL Normal 150-450 [facility] Comment on above: Performed By: #### L 501.2450, L500.4050, L100.0100 ####[facility] [address] [place], [address] RBC (Bld) [#/Vol] 4.88 10*6/uL Normal 4.2-5.4 [facility] Comment on above: Performed By: #### L 501.2450, L500.4050, L100.0100 ####[facility] [address] [place], [address] RDW SD 48.9 fl High 35.1-43.9 [facility] Comment on above: Performed By: #### L 501.2450, L500.4050, L100.0100 ####[facility] [address] [place], [address] WBC (Bld) [#/Vol] 6.0 10*3/uL Normal 4.4-11.0 [facility] Comment on above: Performed By: #### L 501.2450, L500.4050, L100.0100 ####[facility] [address] [place], [address] Carbon dioxide, total [Moles /volume] in Central venous bloodOrdered By: Mich Wheatley on 08-13-2024 CO2 [Moles/Vol] 24.2 mmol/L 21.0-32.0 [facility] Chloride assayOrdered By: Syed Wheatley on 08-13-2024 Chloride [Moles/Vol] 104 mmol/L 98-108 [facility] Comprehensive Metabolic Prof ilon 08-13-2024 Albumin [Mass/Vol] 4.0 g/dL Normal 3.4-4.8 [facility] Comment on above: Performed By: #### L 501.2450, L500.4050, L100.0100 ####[facility] [address] [place], [address] Albumin/Globulin [Mass ratio] 1.3 {ratio} Normal 0.9-2.4 [facility] Comment on above: Performed By: #### L 501.2450, L500.4050, L100.0100 ####[facility] [address] [place], [address] ALK PHOS 113 U/L High 35-104 [facility] Comment on above: Performed By: #### L 501.2450, L500.4050, L100.0100 ####[facility] [address] [place], [address] ALT [Catalytic activity/Vol] 12 U/L Normal <=34 [facility] Comment on above: Performed By: #### L 501.2450, L500.4050, L100.0100 ####[facility] [address] [place], [address] AST [Catalytic activity/Vol] 18 U/L Normal <=31 [facility] Comment on above: Performed By: #### L 501.2450, L500.4050, L100.0100 ####[facility] [address] [place], [address] Bilirubin [Mass/Vol] 0.33 mg/dL Normal 0.00-1.30 [facility] Comment on above: Performed By: #### L 501.2450, L500.4050, L100.0100 ####[facility] [address] [place], [address] BUN/CRE 22.5 RATIO High 10-20 [facility] Comment on above: Performed By: #### L 501.2450, L500.4050, L100.0100 ####[facility] [address] [place], [address] Calcium [Mass/Vol] 8.9 mg/dL Normal 7.6-11.0 [facility] Comment on above: Performed By: #### L 501.2450, L500.4050, L100.0100 ####[facility] [address] [place], [address] Chloride [Moles/Vol] 104 mmol/L Normal 98-108 [facility] Comment on above: Performed By: #### L 501.2450, L500.4050, L100.0100 ####[facility] [address] [place], [address] CO2 [Moles/Vol] 24.2 mmol/L Normal 21.0-32.0 [facility] Comment on above: Performed By: #### L 501.2450, L500.4050, L100.0100 ####[facility] [address] [place], [address] Creatinine [Mass/Vol] 0.68 mg/dL Low 0.70-1.20 [facility] Comment on above: Performed By: #### L 501.2450, L500.4050, L100.0100 ####[facility] [address] [place], [address] ECRCL 99.04 ml/min Normal 50-250 [facility] Comment on above: Performed By: #### L 501.2450, L500.4050, L100.0100 ####[facility] [address] [place], [address] GAP 12 Normal 5-15 [facility] Comment on above: Performed By: #### L 501.2450, L500.4050, L100.0100 ####[facility] [address] [place], [address] GFR/1.73 sq M.predicted among non-blacks MDRD (S/P/Bld) [Vol rate/Area] 98 mL/min/{1.73_m2} Normal >60 [facility] Comment on above: Result Comment: mL/m in/1.73m2 CKD-EPI Creatinine Equation (2020) Performed By: #### L 501.2450, L500.4050, L100.0100 ####[facility] [address] [place], [address] Globulin (S) [Mass/Vol] 3.1 g/dL Normal 2.2-4.2 [facility] Comment on above: Performed By: #### L 501.2450, L500.4050, L100.0100 ####[facility] [address] [place], [address] Glucose [Mass/Vol] 185 mg/dL High 70-99 [facility] Comment on above: Performed By: #### L 501.2450, L500.4050, L100.0100 ####[facility] [address] [place], [address] Potassium [Moles/Vol] 3.7 mmol/L Normal 3.3-5.1 [facility] Comment on above: Performed By: #### L 501.2450, L500.4050, L100.0100 ####[facility] [address] [place], [address] Sodium [Moles/Vol] 140 mmol/L Normal 133-145 [facility] Comment on above: Performed By: #### L 501.2450, L500.4050, L100.0100 ####[facility] [address] [place], [address] T PROT 7.1 g/dL Normal 5.9-8.4 [facility] Comment on above: Performed By: #### L 501.2450, L500.4050, L100.0100 ####[facility] [address] [place], [address] Urea nitrogen [Mass/Vol] 15 mg/dL Normal 4-19 [facility] Comment on above: Performed By: #### L 501.2450, L500.4050, L100.0100 ####[facility] [address] [place], [address] Emergency Department Summary on 08-13-2024 Emergency Department Summary [facility] Medical Records Department [address] [place] [address] Emergency Department Summary 08/13/24 MR#: [id number] Acct: [id number] Name: ALFONSO VERDUGO Rep #: [id number] : 1960 64 From: Mich Wheatley DO [...] with 1 polyp removed and called the silk snapper office and they state that she should [...] pain does not get exacerbated with eating. PFSH [facility] Medical History Wears glasses Wears contact [...] knew that she was at [facility] the year is 2024 Skin: Warm, [...] blood coun (more content not included)... Normal [facility] Eosinophil percentageOrdered By: Mich Wheatley on 08-13-2024 Eosinophils/100 WBC (Bld) 2.2 % 0-5 [facility] Erythrocyte distribution wid th ratioOrdered By: Mich Wheatley on 08-13-2024 Erythrocyte distribution width (RBC) [Ratio] 15.0 % High 11.6-14.6 [facility] Erythrocyte distribution wid th standard deviationOrdered By: Mich Wheatley on 08-13-2024 Erythrocyte distribution width (RBC) [Ratio] 48.9 fl High 35.1-43.9 [facility] Glomerular filtration rate ( GFR) estimation/1.73 sq m using serum, plasma, or whole bOrdered By: Mich Wheatley on 08-13-2024 GFR/1.73 sq M.predicted among non-blacks MDRD (S/P/Bld) [Vol rate/Area] 98 mL/min/{1.73_m2} >60 [facility] [facility] Comment on above: mL/min/1.73m2 CKD-EP I Creatinine Equation (2020) Hematocrit Auto (Bld) [Volum e fraction]Ordered By: Mich Wheatley on 08-13-2024 Hematocrit (Bld) [Volume fraction] 43.2 % 37-47 [facility] Hemoglobin measurementOrdere d By: Mich Wheatley on 08-13-2024 Hemoglobin (Bld) [Mass/Vol] 13.5 g/dL 12.0-15.0 [facility] Immature granulocytes/100 WB C Auto (Bld)Ordered By: Mich Wheatley on 08-13-2024 Immature granulocytes/100 WBC (Bld) 0.300 % 0.0-0.9 [facility] Comment on above: IG% - Immature Granu locytes (promyelocytes, myelocytes and metamyelocytes) > 1% indicates that a LEFT SHIFT is Present. Ketones Test strip Ql (U)Ord ered By: Mich Wheatley on 08-13-2024 Ketones Ql (U) Negative Negative [facility] Laboratory - Chemistry and C hemistry - challengeOrdered By: Mich Wheatley on 08-13-2024 AST [Catalytic activity/Vol] 18 U/L <32 [facility] Lipaseon 08-13-2024 Lipase [Catalytic activity/Vol] 37 U/L Normal 13-75 [facility] Comment on above: Result Comment: Darrion samuels note: LIPASE revised reference range effective 22. New Lipase methodology. Expected to produce lower values than the previous assay method. NEW Reference Range: 13 - 75 U/L Performed By: #### L 501.2450, L500.4050, L100.0100 ####[facility] [id number] [place], [address] Lipase measurementOrdered By : Mich Wheatley on 08-13-2024 Lipase [Catalytic activity/Vol] 37 U/L 13-75 [facility] Comment on above: Please note:LIPASE r evised reference range effective 22. New Lipase methodology. Expected to produce lower values than the previous assay method. NEW Reference Range: 13 - 75 U/L MCV (mean corpuscular volume ) determinationOrdered By: Mich Wheatley on 08-13-2024 MCV (RBC) [Entitic vol] 88.5 fL 81-[address] [facility] Mean corpuscular hemoglobin (MCH) determinationOrdered By: Mich Wheatley on 08-13-2024 MCH (RBC) [Entitic mass] 27.7 pg 27.0-32.0 [facility] Mean corpuscular hemoglobin concentration (MCHC) determinationOrdered By: Mich Wheatley on 08-13-2024 MCHC (RBC) [Mass/Vol] 31.3 g/dL Low 32-36 [facility] Mean platelet volume determi nationOrdered By: Mich Wheatley on 08-13-2024 Platelet mean volume (Bld) [Entitic vol] 10.6 fL 6.2-12.0 [facility] Microscopic analysis of urin e for red blood cells (RBC)Ordered By: Mich Wheatley on 08-13-2024 Microscopic analysis of urine for red blood cells (RBC) 0 SEEN /hpf 0-5 [facility] Monocyte percentageOrdered B y: Mich Wheatley on 08-13-2024 Monocytes/100 WBC (Bld) 6.0 % 0-[address] [facility] Mucus LM Ql (Urine sed)Order ed By: Mich Wheatley on 08-13-2024 Mucus Ql (Urine sed) 0 SEEN /hpf [facility] Neutrophil percentageOrdered By: Mich Wheatley on 08-13-2024 Neutrophils/100 WBC (Bld) 59.5 % 47-70 [facility] Nitrite Test strip Ql (U)Ord ered By: Mich Wheatley on 08-13-2024 Nitrite Ql (U) Negative Negative [facility] Nucleated red blood cell per centageOrdered By: Mich Wheatley on 08-13-2024 Nucleated RBC/100 WBC (Bld) [Ratio] 0 % 0-5 [facility] Platelet countOrdered By: Syed Wheatley on 08-13-2024 Platelets (Bld) [#/Vol] 306 10*3/uL 150-450 [facility] Potassium measurement (mass/ volume)Ordered By: Mich Wheatley on 08-13-2024 Potassium (Unsp spec) [Mass/Vol] 3.7 mmol/L 3.3-5.1 [facility] Protein Test strip Ql (U)Ord ered By: Mich Wheatley on 08-13-2024 Protein Ql (U) Negative Negative [facility] RBC Auto (Bld) [#/Vol]Ordere d By: Mich Wheatley on 08-13-2024 RBC (Bld) [#/Vol] 4.88 10*6/uL 4.2-5.4 [facility] Serum creatinine measurement (mass/volume)Ordered By: Mich Wheatley on 08-13-2024 Creatinine [Mass/Vol] 0.68 mg/dL Low 0.70-1.20 [facility] Serum globulin measurementOr dered By: Mich Wheatley on 08-13-2024 Globulin (S) [Mass/Vol] 3.1 g/dL 2.2-4.[address] [facility] Serum glucose measurement (m ass/volume)Ordered By: Mich Wheatley on 08-13-2024 Glucose [Mass/Vol] 185 mg/dL High 70-99 [facility] Serum or plasma alanine reeder otransferase (ALT) measurementOrdered By: Mich Wheatley on 08-13-2024 ALT [Catalytic activity/Vol] 12 U/L <35 [facility] Serum or plasma albumin alisa urement (mass/volume)Ordered By: Mich Wheatley on 08-13-2024 Albumin [Mass/Vol] 4.0 g/dL 3.4-4.8 [facility] Serum or plasma albumin/glob ulin mass ratioOrdered By: Mich Wheatley on 08-13-2024 Albumin/Globulin [Mass ratio] 1.3 {ratio} 0.9-2.4 [facility] Serum or plasma alkaline janes sphatase measurementOrdered By: Mich Wheatley on 08-13-2024 ALP [Catalytic activity/Vol] 113 U/L High 35-104 [facility] Serum or plasma calcium alisa urement (mass/volume)Ordered By: Mich Wheatley on 08-13-2024 Calcium [Mass/Vol] 8.9 mg/dL 7.6-11.0 [facility] Serum or plasma urea nitroge n measurement (mass/volume)Ordered By: Mich Wheatley on 08-13-2024 Urea nitrogen [Mass/Vol] 15 mg/dL 4-19 [facility] Sodium levelOrdered By: Cassandra Wheatley on 08-13-2024 Sodium [Moles/Vol] 140 mmol/L 133-145 [facility] Squamous epithelial cells de tection in urine sediment by light microscopyOrdered By: Mich Wheatley on 08-13-2024 Epithelial cells.squamous LM Ql (Urine sed) 0-5 SEEN /hpf 5-10 [facility] Total proteinOrdered By: Mena Wheatley on 08-13-2024 Protein [Mass/Vol] 7.1 g/dL 5.9-8.4 [facility] Urinalysis, Completeon 08-13 EPI,SQUAMOUS 0-5 SEEN Normal 5-10 [facility] Comment on above: Order Comment: CLEAN CATCH Performed By: #### L 400.0001 #### [facility] Laboratory [address] [place], [address] WBC 0-5 SEEN Normal 0-5 [facility] Comment on above: Order Comment: CLEAN CATCH Performed By: #### L 400.0001 #### [facility] [address] [place], [address] BACTERIA 0 SEEN Normal None Seen [facility] Comment on above: Order Comment: CLEAN CATCH Performed By: #### L 400.0001 #### [facility] [address] [place], [address] Mucus Ql (Urine sed) 0 SEEN Normal [facility] Comment on above: Order Comment: CLEAN CATCH Performed By: #### L 400.0001 #### [facility] [address] [place], [address] RBC 0 SEEN Normal 0-5 [facility] Comment on above: Order Comment: CLEAN CATCH Performed By: #### L 400.0001 #### [facility] [address] [place], [place], [address] Urine clarityOrdered By: Mena Wheatley on 08-13-2024 Clarity (U) Sl. Cloudy Clear [facility] Urine color determinationOrd ered By: Mich Wheatley on 08-13-2024 Color (U) Yellow Yellow [facility] Urine glucose detectionOrder ed By: Mich Wheatley on 08-13-2024 Glucose Ql (U) Normal mg/dl Normal [facility] Urine leukocyte esterase det ection by dipstickOrdered By: Mich Wheatley on 08-13-2024 Leukocyte esterase Test strip Ql (U) 100 /ul High Negative [facility] Urine pHOrdered By: Mich banks on 08-13-2024 pH (U) 6.0 [pH] 5.0 - 8.0 [facility] Urine sediment bacteria coun t by microscopy (number/high power field)Ordered By: Mich Wheatley on 08-13-2024 Bacteria LM.HPF (Urine sed) [#/Area] 0 /[HPF] None Seen [facility] Urine specific gravity measu rementOrdered By: Mich Wheatley on 08-13-2024 Specific gravity (U) [Rel density] 1.010 1.002-1.030 [facility] Urine urobilinogen measureme ntOrdered By: Mich Wheatley on 08-13-2024 Urobilinogen Ql (U) Normal mg/dl Normal [facility] White blood cell (WBC) count Ordered By: Mich Wheatley on 08-13-2024 WBC (Bld) [#/Vol] 6.0 10*3/uL 4.4-11.0 [facility] White blood cell countOrdere d By: Mich Wheatley on 08-13-2024 White blood cell count 0-5 SEEN /hpf 0-5 [facility] Colonoscopy Reporton 025 Colonoscopy Report [facility] Medical Records Department [address] [place] [address] Colonoscopy Report MR#: [id number] Acct: [id number] Name: ALFONSO VERDUGO Rep #: [id number] : 1960 64 From: Maryellen Lopez MD PCP: Dr. Millie Payton MD Status:[facility] Patient Name: Alfonso Verdugo Procedure Date: 08/04/2024 [...] pathology results. Procedure Code(s): --- Professional --- 67775, PT, Colonoscopy, flexible; with removal of tumor(s), polyp(s), or other lesion(s) by snare technique Diagnosis Code(s): --- Professional --- Z86.010, Personal history of colonic polyps D12.4, Benign neoplasm of descending colon Z80.0, Family history of malignant neoplasm of digestive organs CPT copyright 2021 [employer]. All rights reserved. The codes documented in this report are preliminary and upon compliance assistant review may be revised to meet current compliance requirements. MD Maryellen Ramires MD 08/04/2024 8:03:27 AM This report has been signed electronically. Number of Addenda: 0 Note Initiated On: 08/04/2024 7:27 AM 08/04/24 0803 Date Maryellen Mehta Signature: Date (if indicated) CC: Dr. Millie Payton MD; Dr. Maryellen Lopez MD Date Dictated: 08/04/24726 Date Transcribed: Geneticist: TR Signed [facility] MR/POSTOP.ANEon 08-04-2024 MR/POSTOP.[facility] Medical Records Department [address] [place] [address] Anesthesia Postop Eval I 08/04/24 0810 MR#: [id number] Acct: [id number] Name: ALFONSO VERDUGO PASCALE Rep #: [id number] : 1960 64 From: Juancarlos Wheatley PCP: Dr. Millie Payton MD Status:REG GILMAR Y Race: C Location: [place] [address] Anesthesia: Postop Eval I Current Vital Signs [...] Date Juancarlos Montanez Signature: Date CC: Signed [facility] MR/QQXIHHID1mc 08-04-2024 MR/POSTOPAN2 [facility] Medical Records Department [address] [facility] [place] [address] Anesthesia Postop Eval II 08/04/24 1228 MR#: [id number] Acct: [id number] Name: ALFONSO VERDUGO PASCALE Rep #: [id number] : 1960 64 From: Kris Oviedo MD PCP: Dr. Millie Payton MD Status:DEP GILMARC Y Race: C Location: [place] Anesthesia Postop [...] MD Cosigner Signature: Date CC: Signed Normal [facility] Surgery Specimen Level Latisha 08-04-2024 Surgery Specimen Level IV Patient Age/Sex Location Account Attending Physician ALFONSO VERDUGO 64/F EN [id number] Dr. Maryellen Lopez MD Specimen: [id number] Received: 08/04/24 Status: CASS Glez Num: [id number] Spec Type: COLON BX Subm Dr: Dr. [...] specimen is totally submitted in one cassette. FLO/ 08/04/2024 CPT:14593 Patient Age/Sex Location Account Attending Physician ALFONSO VERDUGO 64/F EN [id number] Dr. Maryellen Lopez MD Signed (signature on file) Dr. Minerva Dean MD 08/12/24 0850 Normal [facility] Comment on above: Performed By: #### P SUIV #### [facility] Laboratory [address] [place], [address] MR/PAT.Tali 07-31-2024 MR/PAT.[facility] Medical Records Department [address] [place] [address] PAT - Anesthesia 07/31/24 1114 MR#: [id number] Acct: [id number] Name: ALFONSO VERDUGO Rep #: [id number] : 1960 64 From: Juan Georges MD PCP: Dr. 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 Hx Hospitalization No 07/31/24 10:35 Any Problems [...] take am of surgery PONV PONV - teacher advisor: PONV - teacher advisor Female Yes 07/31/24 10:35 HX of Motion [...] 05/30/24 11:34 Respiratory Assessment Respiratory Assessment - teacher advisor: Respiratory Tract Infection Hx - teacher advisor Hx Respiratory Tract Infection No 07/31/24 10:35 STOP Sleep Apnea STOP Sleep Apnea - teacher advisor: STOP Sleep Apnea - teacher advisor Hx Hypertension No 07/31/24 10:35 Hx Sleep [...] Tobacco Use History Tobacco Use History - teacher advisor: Tobacco Use History - teacher advisor Tobacco Use Smoking Status Never smoker 07/31/24 10:35 Hx Tobacco Use No 07/31/24 10:35 Years Smoking Packs Smoked per Day Smoking Cessation Date was within the last 15 years Hx Smoking Cessation Date Hx Smoking Cessation Counseling Hematologic Medial History Hematologic Hx - teacher advisor: 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 Normal [facility] Office Visit Reporton 05-30-2024 [facility] Office Visit Report [facility] [address], [address] [place] [address] OFFICE VISIT Date of Service: 05/30/24 MR#: [id number] Acct: [id number] Name: ALFONSO VERDUGO Rep #: [id number] : 1960 Provider: Dr. 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 History 3 Elective abortions Hx [...] comfortable and no acute distress Orientation: alert HENRI Head: normal to inspection and normocephalic Eyes [...] or consult (more content not included)... Normal [facility] Office Visit Reporton 2024 Office Visit Report [facility] [address] [place] [address] OFFICE VISIT Date of Service: 04/30/24 MR#: [id number] Acct: [id number] Patient: ALFONSO VERDUGO Rep #: [id number] : 1960 Provider: Dr. Rose Marie florez MD Age/Sex: 64/F Location: [facility] Status: Signed Intake Vital Signs 04/08/24 09:36 04/30/24 08:41 Height 5 ft 6 in 5 ft 6 in Weight: 209 lb 6 oz BMI 33.7 BP 130/82 H Pulse 77 Intake Visit Reasons: 1 M med check Chief Complaint: BP/HR/Weight Check Supervisor Customer Services Required: No Is patient in pain?: No Allergies Penicillins Adverse Reaction (Verified 04/30/24 08:34) Rash Sulfa (Sulfonamide Antibiotics) Adverse Reaction (Verified 04/30/24 08:34) Rash Medications ???Medication ???Instructions ???Recorded ???Confirmed ???Type levothyroxine 88 mcg tablet 88 mcg PO DAILY 10/11/23 04/30/24 History phentermine 15 mg-topiramate ER 92 1 cap PO Q24H #30 caps 03/05/24 04/30/24 Rx mg capsule,ext.emzeile10dx multphas (Qsymia) venlafaxine 75 mg capsule,extended 75 [...] How are you tracking your food intake?: desmond On average, how many days a week [...] Montanez Signature: Date (if applicable) CC: Normal [facility] Office Visit Reporton 2024 Office Visit Report [facility] [address] [place] [address] OFFICE VISIT Date of Service: 04/08/24 MR#: [id number] Acct: [id number] Patient: ALFONSO VERDUGO Rep #: [id number] : 1960 Provider: ARSALAN Mclean Age/Sex: 63/F Location: [facility] Status: Signed Intake Vital Signs 03/05/24 09:25 04/03/24 13:30 04/08/24 09:36 Height 5 ft 6 in 5 ft 6 in 5 ft 6 in Weight: 210 lb 4 oz BMI 33.9 BP 133/84 H Pulse 67 Pulse Source Monitor Intake Visit Reasons: 1 M weigh in med check Chief Complaint: BP/HR/Weight Check Supervisor Customer Services Required: No Is patient in pain?: No [...] Q24H #30 caps 03/05/24 04/08/24 Rx mg capsule,ext.oxnbpyo34vv multphas (Qsymia) Post menopausal: No Patient : No Have you fallen in the past year?: No Nurse's Note: [facility] [place] She is scheduling 2 NVs and then [...] with on your weight loss journey today?: YENI 04/08/24 164 Date Tracey Montanez Signature: Date (if applicable) CC: Normal [facility] Of [facility] Office Visit Reporton 03-05-2024 Dean Of Instruction Office Visit Report [facility] [address], [address] [place] [address] OFFICE VISIT Date of Service: 03/05/24 MR#: [id number] Acct: [id number] Name: ALFONSO VERDUGO Rep #: [id number] : 1960 Provider: ARSALAN Mclean Age/Sex: 63/F Location: [facility] Status: Signed Intake Vital Signs 01/23/24 10:12 03/05/24 09:19 03/05/24 09:25 Height 5 ft 6 in 5 ft 6 in 5 ft 6 in Weight: 207 lb 6 oz BMI 33.5 BP 115/75 Pulse 78 Intake Visit Reasons: Weight management Supervisor Customer Services Required: No Is patient in pain?: No [...] Q24H #30 caps 03/05/24 03/05/24 Rx mg capsule,ext.iupanav34ck multphas (Qsymia) Last Menstrual Period: 02/19/11 Have [...] Bth Weight [facility] F[facility] Unknown Vasyl-1989 Unknown Yobany-1993 HPI [...] obesity: Status: Acute Comment: [facility] 1200, 40-50 net carb nutritional plan. Using Lose it desmond. Has a goal to lose another 25 in the next 6 months. Incorporate more vegetables; lean meats; protein. Medication plan: Qsymia-continue; continue current dosing; tolerati (more content not included)... Normal [facility] Dean Of Instruction Office Visit Reporton 01-23-2024 Dean Of Instruction Office Visit Report [facility] [address] [place] [address], [address] [place] [address] OFFICE VISIT Date of Service: 01/23/24 MR#: [id number] Acct: [id number] Name: ALFONSO VERDUGO Rep #: [id number] : 1960 Provider: ARSALAN Mclean Age/Sex: 63/F Location: [facility] Status: Signed Intake Vital Signs 10/11/23 08:49 12/11/23 13:37 01/23/24 10:08 01/23/24 10:12 Height 5 ft 6 in 5 ft 6 in 5 ft 6 in 5 ft 6 in Weight: 207 lb BMI 33.4 BP 137/84 H Pulse 92 Intake Visit Reasons: 3 M WM Chief Complaint: 3 m f/u Supervisor Customer Services Required: No Is patient in pain?: No [...] Q24H #30 caps 01/23/24 01/23/24 Rx mg capsule,ext.jddikfe62jg multphas (Qsymia) Last Menstrual Period: 02/19/11 PFSH [...] comfortable and no acute distress Orientation: alert HENRI Head: normal to inspection and normocephalic Eyes [...] obesity: Status: Acute Comment: Nutrition plan: [facility] 4891-1911, 40-50 net carb nutritional plan. Using Lose it desmond. Medication plan: Qsymia; continue current dosing; tolerating well with no side effects. Discussed once she reaches her goals potentially titrating down. control- postmenopausal. Behavior intervention: recommend daily journal of food intake with electronic me (more content not included)... Normal [facility] 25(OH)D3 [facility] 2023 25-hydroxyvitamin D3 [Mass/Vol] 21.8 ng/mL Low 31.0-80.0 [facility] Comment on above: Order Comment: Specbeverly ahn Type: BLOOD SPECIMEN Ordering Facility: [facility] Address: [address] [place] [address] [address], [place] [address] Result Comment: Clas sification of 25 [place] Vitamin D status: Deficiency/Insufficiency: < or = 30 ng/ml. Sufficiency/Optimal Levels: 31-80 ng/mL Toxicity: > 100 ng/mL. Test performed by chemiluminescent immunoassay. Performed By: #### 1 989-3 #### [facility] CLIA [id number] [address] [place] [address] [place] CBC W Auto Differential pane l (Bld)on 12-28-2023 Basophils (Bld) [#/Vol] 0.04 10*3/uL Normal <0.11 [facility] Comment on above: Order Comment: Saskia ahn Type: BLOOD SPECIMEN Ordering Facility: [facility] Address: [address] [place] [address] [address] [facility], [place] [address] Performed By: #### 5 7021-8 #### [facility] CLIA [id number] [address] [place] [address] [place] Basophils/100 WBC (Bld) 0.8 % Normal [facility] Comment on above: Order Comment: Speci men Type: BLOOD SPECIMEN Ordering Facility: [facility] Address: [address] [place] [address] Performed By: #### 5 7021-8 #### [facility] CLIA [id number] [address] [place] [address] [place] Differential cell count method Nom (Bld) Auto Normal [facility] Comment on above: Order Comment: Speci men Type: BLOOD SPECIMEN Ordering Facility: [facility] Address: [address] [place] [address] Performed By: #### 5 7021-8 #### [facility] CLIA [id number] [address] [place] [address] [place] Eosinophils (Bld) [#/Vol] 0.17 10*3/uL Normal <0.46 [facility] Comment on above: Order Comment: Speci men Type: BLOOD SPECIMEN Ordering Facility: [facility] Address: [address] [place] [address] Performed By: #### 5 7021-8 #### [facility] CLIA [id number] [address] [place] [address] [place] Eosinophils/100 WBC (Bld) 3.5 % Normal [facility] Comment on above: Order Comment: Speci men Type: BLOOD SPECIMEN Ordering Facility: [facility] Address: [address] [place] [address] Performed By: #### 5 7021-8 #### [facility] CLIA [id number] [address] [place] [address] [place] Erythrocyte distribution width (RBC) [Ratio] 15.0 % Normal 11.5-15.0 [facility] Comment on above: Order Comment: Speci men Type: BLOOD SPECIMEN Ordering Facility: [facility] Address: [address] [place] [address] Performed By: #### 5 7021-8 #### [facility] CLIA [id number] [address] [place] [address] [place] Hematocrit (Bld) [Volume fraction] 40.4 % Normal 36.0-46.0 [facility] Comment on above: Order Comment: Speci men Type: BLOOD SPECIMEN Ordering Facility: [facility] Address: [address] [place] [address] Performed By: #### 5 7021-8 #### [facility] CLIA [id number] [address] [place] [address] [place] Hemoglobin (Bld) [Mass/Vol] 12.8 g/dL Normal 11.5-15.5 [facility] Comment on above: Order Comment: Speci men Type: BLOOD SPECIMEN Ordering Facility: [facility] Address: [address] [place] [address] Performed By: #### 5 7021-8 #### [facility] CLIA [id number] [address] [place] [address] [place] Immature granulocytes (Bld) [#/Vol] 10*3/uL Normal <0.10 [facility] Comment on above: Order Comment: Speci men Type: BLOOD SPECIMEN Ordering Facility: [facility] Address: [address] [place] [address] Performed By: #### 5 7021-8 #### [facility] CLIA [id number] [address] [place] [address] [place] Immature granulocytes/100 WBC (Bld) 0.2 % Normal [facility] Comment on above: Order Comment: Speci men Type: BLOOD SPECIMEN Ordering Facility: [facility] Address: [address] [place] [address] Performed By: #### 5 7021-8 #### [facility] CLIA [id number] [address] [place] [address] [place] Lymphocytes (Bld) [#/Vol] 1.82 10*3/uL Normal 1.00-4.00 [facility] Comment on above: Order Comment: Speci men Type: BLOOD SPECIMEN Ordering Facility: [facility] Address: [address] [place] [address] Performed By: #### 5 7021-8 #### [facility] CLIA [id number] [address] [place] [address] [place] Lymphocytes/100 WBC (Bld) 37.4 % Normal [facility] Comment on above: Order Comment: Speci men Type: BLOOD SPECIMEN Ordering Facility: [facility] Address: [address] [place] [address] Performed By: #### 5 7021-8 #### [facility] CLIA [id number] [address] [place] [address] [place] MCH (RBC) [Entitic mass] 27.7 pg Normal 26.0-34.0 [facility] Comment on above: Order Comment: Speci men Type: BLOOD SPECIMEN Ordering Facility: [facility] Address: [address] [place] [address] Performed By: #### 5 7021-8 #### [facility] CLIA [id number] [address] [place] [address] [place] MCHC (RBC) [Mass/Vol] 31.7 g/dL Normal 30.5-36.[address] [facility] Comment on above: Order Comment: Speci men Type: BLOOD SPECIMEN Ordering Facility: [facility] Address: [address] [place] [address] Performed By: #### 5 7021-8 #### [facility] CLIA [id number] [address] [place] [address] [place] MCV (RBC) [Entitic vol] 87.4 fL Normal 80.0-100.0 [facility] Comment on above: Order Comment: Speci men Type: BLOOD SPECIMEN Ordering Facility: [facility] Address: [address] [place], [place] [address] Performed By: #### 5 7021-8 #### [facility] CLIA [id number] [address] [place] [address] [place] Monocytes (Bld) [#/Vol] 0.31 10*3/uL Normal <0.87 [facility] Comment on above: Order Comment: Speci men Type: BLOOD SPECIMEN Ordering Facility: [facility] Address: [address] [place] [address] Performed By: #### 5 7021-8 #### [facility] CLIA [id number] [address] [place] [address] [place] Monocytes/100 WBC (Bld) 6.4 % Normal [facility] Comment on above: Order Comment: Speci men Type: BLOOD SPECIMEN Ordering Facility: [facility] Address: [address] [place] [address] Performed By: #### 5 7021-8 #### [facility] CLIA [id number] [address] [place] [address] [place] Neutrophils (Bld) [#/Vol] 2.51 10*3/uL Normal 1.45-7.50 [facility] Comment on above: Order Comment: Speci men Type: BLOOD SPECIMEN Ordering Facility: [facility] Address: [address] [place] [address] Performed By: #### 5 7021-8 #### [facility] CLIA [id number] [address] [place] [address] [place] Neutrophils/100 WBC (Bld) 51.7 % Normal [facility] Comment on above: Order Comment: Speci men Type: BLOOD SPECIMEN Ordering Facility: [facility] Address: [address] [place] [address] Performed By: #### 5 7021-8 #### [facility] CLIA [id number] [address] [place] [address] [place] Nucleated RBC (Bld) [#/Vol] 10*3/uL Normal <0.01 [facility] Comment on above: Order Comment: Speci men Type: BLOOD SPECIMEN Ordering Facility: [facility] Address: [address] [place] [address] Performed By: #### 5 7021-8 #### [facility] CLIA [id number] [address] [place] [address] [place] Nucleated RBC/100 WBC (Bld) [Ratio] 0.0 /100 WBC Normal [facility] Comment on above: Order Comment: Speci men Type: BLOOD SPECIMEN Ordering Facility: [facility] Address: [address] [place] [address] Performed By: #### 5 7021-8 #### [facility] CLIA [id number] [address] [place] [address] [place] Platelet mean volume (Bld) [Entitic vol] 10.4 fL Normal 9.0-12.7 [facility] Comment on above: Order Comment: Speci men Type: BLOOD SPECIMEN Ordering Facility: [facility] Address: [address] [place] [address] Performed By: #### 5 7021-8 #### [facility] CLIA [id number] [address] [place] [address] [place] Platelets (Bld) [#/Vol] 310 10*3/uL Normal 150-400 [facility] Comment on above: Order Comment: Speci men Type: BLOOD SPECIMEN Ordering Facility: [facility] Address: [address] [place] [address] Performed By: #### 5 7021-8 #### [facility] CLIA [id number] [address] [place] [address] [place] RBC (Bld) [#/Vol] 4.62 10*6/uL Normal 3.90-5.20 [facility] Comment on above: Order Comment: Speci men Type: BLOOD SPECIMEN Ordering Facility: [facility] Address: [address] [place] [address] Performed By: #### 5 7021-8 #### [facility] CLIA [id number] [address] [place] [address] [place] WBC (Bld) [#/Vol] 4.86 10*3/uL Normal 3.70-11.00 [facility] Comment on above: Order Comment: Speci men Type: BLOOD SPECIMEN Ordering Facility: [facility] Address: [address] [place] [address] Performed By: #### 5 7021-8 #### [facility] CLIA [id number] [address] [place] [address] [place] Comprehensive metabolic 2000 panelon 12-28-2023 Albumin [Mass/Vol] 4.2 g/dL Normal 3.9-4.9 [facility] Comment on above: Order Comment: Speci men Type: BLOOD SPECIMEN Ordering Facility: [facility] Address: [address] [place] [address] Performed By: #### 2 4323-8 #### [facility] CLIA [id number] [address] [place] [address] [place] ALP [Catalytic activity/Vol] 123 U/L Normal 34-123 [facility] Comment on above: Order Comment: Speci men Type: BLOOD SPECIMEN Ordering Facility: [facility] Address: [address] [place] [address] Performed By: #### 2 4323-8 #### [facility] CLIA [id number] [address] [place] [address] [place] ALT [Catalytic activity/Vol] 10 U/L Normal 7-38 [facility] Comment on above: Order Comment: Speci men Type: BLOOD SPECIMEN Ordering Facility: [facility] Address: [address] [place] [address] Performed By: #### 2 4323-8 #### [facility] CLIA [id number] [address] [place] [address] [place] Anion gap [Moles/Vol] 12 mmol/L Normal 8-15 [facility] Comment on above: Order Comment: Speci men Type: BLOOD SPECIMEN Ordering Facility: [facility] Address: [address] [place] [address] Performed By: #### 2 4323-8 #### [facility] CLIA [id number] [address] [place] [address] [place] AST [Catalytic activity/Vol] 11 U/L Low 13-35 [facility] Comment on above: Order Comment: Speci men Type: BLOOD SPECIMEN Ordering Facility: [facility] Address: [address] [place] [address] Performed By: #### 2 4323-8 #### [facility] CLIA [id number] [address] [place] [address] [place] Bilirubin [Mass/Vol] 0.5 mg/dL Normal 0.2-1.3 [facility] Comment on above: Order Comment: Speci men Type: BLOOD SPECIMEN Ordering Facility: [facility] Address: [address] [place] [address] Performed By: #### 2 4323-8 #### [facility] CLIA [id number] [address] [place] [address] [place] Calcium [Mass/Vol] 9.2 mg/dL Normal 8.5-10.2 [facility] Comment on above: Order Comment: Speci men Type: BLOOD SPECIMEN Ordering Facility: [facility] Address: [address] [place] [address] Performed By: #### 2 4323-8 #### [facility] CLIA [id number] [address] [place] [address] [place] Chloride [Moles/Vol] 106 mmol/L Normal 98-107 [facility] Comment on above: Order Comment: Saskia ahn Type: BLOOD SPECIMEN Ordering Facility: [facility] Address: [address] [place] [address] Performed By: #### 2 4323-8 #### [facility] CLIA [id number] [address] [place] [address] [place] CO2 [Moles/Vol] 23 mmol/L Normal 22-30 [facility] Comment on above: Order Comment: Speci men Type: BLOOD SPECIMEN Ordering Facility: [facility] Address: [address] [place] [address] Performed By: #### 2 4323-8 #### [facility] CLIA [id number] [address] [place] [address] [place] Creatinine [Mass/Vol] 0.70 mg/dL Normal 0.58-0.96 [facility] Comment on above: Order Comment: Saskia ahn Type: BLOOD SPECIMEN Ordering Facility: [facility] Address: [address] [place] [address] Performed By: #### 2 4323-8 #### [facility] CLIA [id number] [address] [place] [address] OF [facility] Creatinine and Glomerular filtration rate.predicted panel (S/P/Bld) 99 mL/min/1.73m??? Normal >=60 [facility] Comment on above: Order Comment: Saskia men Type: BLOOD SPECIMEN Ordering Facility: [facility] Address: [address] [place] [address] Result Comment: Lakia mated Glomerular Filtration Rate [...] GFR. Performed By: #### 2 4323-8 #### [facility] CLIA [id number] [address] [place] [address] [place] Glucose [Mass/Vol] 97 mg/dL Normal 74-99 [facility] Comment on above: Order Comment: Saskia ahn Type: BLOOD SPECIMEN Ordering Facility: [facility] Address: [address] [place] [address] Result Comment: The [place] Diabetes Association (ADA) provides guidance for cutoff [...] Standards of Medical Care in Diabetes 2016, [place] [employer] Association. Diabetes Care. 2016.39(Suppl 1). Performed By: #### 2 4323-8 #### [facility] CLIA [id number] [address] [place] [address] [place] Potassium [Moles/Vol] 3.9 mmol/L Normal 3.7-5.1 [facility] Comment on above: Order Comment: Saskia ahn Type: BLOOD SPECIMEN Ordering Facility: [facility] Address: [address] [place] [address] Performed By: #### 2 4323-8 #### [facility] CLIA [id number] [address] [place] [address] [place] Protein [Mass/Vol] 7.0 g/dL Normal 6.3-8.0 [facility] Comment on above: Order Comment: Saskia ahn Type: BLOOD SPECIMEN Ordering Facility: [facility] Address: [address] [place] [address] Performed By: #### 2 4323-8 #### [facility] CLIA [id number] [address] [place] [address] [place] Sodium [Moles/Vol] 141 mmol/L Normal 136-144 [facility] Comment on above: Order Comment: Speci men Type: BLOOD SPECIMEN Ordering Facility: [facility] Address: [address] [place] [address] Performed By: #### 2 4323-8 #### [facility] CLIA [id number] [address] [place] [address] [place] Urea nitrogen [Mass/Vol] 16 mg/dL Normal 7-21 [facility] Comment on above: Order Comment: Speci men Type: BLOOD SPECIMEN Ordering Facility: [facility] Address: [address] [place] [address] Performed By: #### 2 4323-8 #### [facility] CLIA [id number] [address] [place] [address] [place] Lipid 1996 panelon 4 Cholesterol [Mass/Vol] 206 mg/dL High <200 [facility] Comment on above: Order Comment: Speci men Type: BLOOD SPECIMEN Ordering Facility: [facility] Address: [address] [place] [address] Result Comment: <200 mg/dL, Desirable 200-239 mg/dL, Borderline high >239 mg/dL, High Performed By: #### 2 4331-1 #### [facility] CLIA [id number] [address] [address] [place] [facility] CLIA [id number] [address] [place] [address] [place] #### 3016-3 #### [facility] CLIA [id number] [address] [address] [place] Cholesterol in HDL [Mass/Vol] 57 mg/dL Normal >39 [facility] Comment on above: Order Comment: Angelitoi men Type: BLOOD SPECIMEN Ordering Facility: [facility] Address: [address] [place] [address], [place] [address] Result Comment: 40-5 9 mg/dL, Acceptable >59 mg/dL, High: Negative risk factor for coronary heart disease <40 mg/dL, Low: Positive risk factor for coronary heart disease Performed By: #### 2 4331-1 #### [facility] CLIA [id number] [address] [facility] [address] [address] [place] [facility] CLIA [id number] [address] [place] [address] [place] #### 3016-3 #### [facility] CLIA [id number] [address] [facility] [place] [id number] [place] Cholesterol in LDL [Mass/Vol] 135 mg/dL High <100 [facility] Comment on above: Order Comment: Angelitoi men Type: BLOOD SPECIMEN Ordering Facility: [facility] Address: [address] [place] [address], [place] [address] Result Comment: <100 mg/dL, Optimal 100-129 mg/dL, Near optimal/above optimal 130-159 mg/dL, Borderline high 160-189 mg/dL, High >189 mg/dL, Very high Secondary prevention optimal LDL Cholesterol levels are recommended to be < 70 mg/dL Performed By: #### 2 4331-1 #### [facility] CLIA [id number] [address] [facility] [address] [address] [place] [facility] CLIA [id number] [address] [place] [address] [place] #### 3016-3 #### [facility] CLIA [id number] [address] [facility] [address] [address] [place] Cholesterol in LDL/Cholesterol in HDL [Mass ratio] 2.37 {ratio} Normal <2.54 [facility] Comment on above: Order Comment: Speci men Type: BLOOD SPECIMEN Ordering Facility: [facility] Address: [address] [place] [address] Result Comment: Dany patel: 1. National Cholesterol Education Program ATP III Guideline At-A-Glance Quick Desk Reference: National Heart, Lung, and Blood [place]. National Institutes of Health. 2001: NIH Publication No. 01-3305. 2. An International Atherosclerosis Society position paper: global recommendations for the management of dyslipidemia: executive summary, Atherosclerosis. 2014: 232(2):410-413. Performed By: #### 2 4331-1 #### [facility] CLIA [id number] [address] [place] [address] [place] [facility] CLIA [id number] [address] [place] [address] [place] #### 3016-3 #### [facility] CLIA [id number] [address] [place] [address] [place] Cholesterol in VLDL [Mass/Vol] 14 mg/dL Normal <30 [facility] Comment on above: Order Comment: Angelitoi men Type: BLOOD SPECIMEN Ordering Facility: [facility] Address: [address] [place] [address] Performed By: #### 2 4331-1 #### [facility] CLIA [id number] [address] [place] [address] [place] [facility] CLIA [id number] [address] [place] [address] [place] #### 3016-3 #### [facility] CLIA [id number] [address] [place] [address] [place] Cholesterol non HDL [Mass/Vol] 149 mg/dL High <130 [facility] Comment on above: Order Comment: Speci men Type: BLOOD SPECIMEN Ordering Facility: [facility] Address: [address] [place] [address] Result Comment: <130 mg/dL, Optimal 130-159 mg/dL, Near optimal/above optimal 160-189 mg/dL, Borderline high 190-219 mg/dL, High >219 mg/dL, Very high Secondary prevention optimal non HDL Cholesterol levels are recommended to be <100 mg/dL Performed By: #### 2 4331-1 #### [facility] CLIA [id number] [address] [place] [address] [place] [facility] CLIA [id number] [address] [place] [address] [place] #### 3016-3 #### [facility] CLIA [id number] [address] [place] [address] [place] Cholesterol.total/Elina sterol in HDL [Mass ratio] 3.61 {ratio} Normal <5.10 [facility] Comment on above: Order Comment: Speci men Type: BLOOD SPECIMEN Ordering Facility: [facility] Address: [address] [place] [address] Performed By: #### 2 4331-1 #### [facility] CLIA [id number] [address] [place] [address] [place] [facility] CLIA [id number] [address] [place] [address] [place] #### 3016-3 #### [facility] CLIA [id number] [address] [place] [address] [place] FASTING TIME 12 hrs Normal [facility] Comment on above: Order Comment: Speci men Type: BLOOD SPECIMEN Ordering Facility: [facility] Address: [address] [place] [address] Performed By: #### 2 4331-1 #### [facility] CLIA [id number] [address] [place] [address] [place] [facility] CLIA [id number] [address] [place] [address] [place] #### 3016-3 #### [facility] CLIA [id number] [address] [place] [address] [place] Triglyceride [Mass/Vol] 70 mg/dL Normal <150 [facility] Comment on above: Order Comment: Speci men Type: BLOOD SPECIMEN Ordering Facility: [facility] Address: [address] [place] [address] Result Comment: <150 mg/dL, Normal 150-199 mg/dL, Borderline high 200-499 mg/dL, High >499 mg/dL, Very high Performed By: #### 2 4331-1 #### [facility] CLIA [id number] [address] [place] [address] [place] [facility] CLIA [id number] [address] [place] [address] [place] #### 3016-3 #### [facility] CLIA [id number] [address] [place] [address] [place] TSH SerPl-aCncon 12-28-2023 TSH Qn 2.900 m[IU]/L Normal 0.270-4.200 [facility] Comment on above: Order Comment: Speci men Type: BLOOD SPECIMEN Ordering Facility: [facility] Address: [address] [place] [address] Performed By: #### 2 4331-1 #### [facility] CLIA [id number] [address] [place] [address] [place] [facility] CLIA [id number] [address] [place] [address] [place] #### 3016-3 #### [facility] CLIA [id number] [address] [place] [address] [place] [facility] [employer] Office Visit Reporton 12-11-2023 [facility] Office Visit Report [facility] [address], [address] [place] [address] OFFICE VISIT Date of Service: 12/11/23 MR#: [id number] Acct: [id number] Name: ALFONSO VERDUGO Rep #: [id number] : 1960 Provider: Dr. Rose Marie florez MD Age/Sex: 63/F Location: [facility] Status: Signed Intake Vital Signs 10/11/23 08:49 12/11/23 13:37 Height 5 ft 6 in 5 ft 6 in BP 127/82 H Intake Visit Reasons: Colposcopy Chief Complaint: colposcopy Supervisor Customer Services Required: No Is patient in pain?: No [...] Q24H #30 caps 10/26/23 12/11/23 Rx mg capsule,ext.[id number] multphas (Qsymia) Is last menstrual period known: [...] Weight [facility] FOB Unknown Vasyl-1989 Unknown Yobany-1993 HPI [...] complications. Coding Level of Care Code Attention Ski Tow Operator Diagnoses Abnormal Pap smear of cervix R87.619 CPT Codes Colposcopy - Cervix+upper/adj vag+bx cervix: Yes (04432) Assessment and Plan Assessment and Plan (1) Abnormal Pap smear of cervix: Status: Acute Comment: repeat pap and hpv 2023- ascus hpv pos, biopsies done at [facility] 12/12. Orders: Orders Colposcopy Today R87.619 - Unspecified abnormal cytological findings in specimens from cervix uteri 12/11/23 1415 Date Rose Marie Ugarte (more content not included)... Normal [facility] SCRN MAMM (CAD)W/PRISCILA BILATo n 12-11-2023 SCRN MAMM (CAD)W/PRISCILA BILAT [facility] Services [address] [place] [id number] SCRN MAMM (CAD)W/PRISCILA BILAT MR#: [id number] Acct: [id number] Name: ALFONSO VERDUGO PASCALE Rep #: [id number] : 1960 F 63 From: Thaddeus chaudhry MD PCP: Dr. Millie Payton MD Status: [facility] Study: SCRN MAMM (CAD)W/PRISCILA BILAT Date of Exam: 11/20 04/14 Exam# [id number] Ordering Dr: Rose Marie Brush [id number] MAMMOGRAPHY - BILATERAL SCREENING REASON FOR EXAM: [...] delay biopsy of a clinically suspicious abnormality. [id number] Electronically Signed: Thaddeus May MD at 14:12 EDT , CC: Dr. Millie Payton MD; Dr. Rose Marie Brush MD Geneticist: Signed Normal [facility] Surgery Specimen Level Latisha 12-11-2023 Surgery Specimen Level IV Patient Age/Sex Location Account Attending Physician LUCINAALFONSO NELSON PASCALE 63/F [facility] [id number] Dr. Rose Marie Brush MD Specimen: [id number] Received: 12/12/23 Status: CASS Glez Num: [id number] Spec Type: CERV Subm Dr: Dr. Rose Marie Brush MD HEADER OPERATION: Colposcopy PRE-OP DIAGNOSIS: Abnormal pap smear of cervix/ HPV test positive TISSUE SUBMITTED: A- 6o'clock, B- 8o'clock MICROSCOPIC DIAGNOSIS A. Cervix, 6o'clock, biopsy: Rare glandular mucosa present. B. Cervix, 8o'clock, biopsy: Minimal chronic inflammation. HPV change present See comment. AM 12/13/2023 COMMENT B. Immunohistochemistry ([id number]) for surrogate HPV marker (p16) shows weak, [...] totally submitted in one cassette. 12/12/2023 TC:3 [facility]:[id number] Patient Age/Sex Location Account Attending Physician ALFONSO VERDUGO 63/F [facility] [id number] Dr. Rose Marie Brush MD Signed (signature on file) Dr. Aly Lundberg DO 12/14/23 1418 Normal [facility] Comment on above: Performed By: #### P SUIV #### [facility] Laboratory [address] [place] [address], [address] p16 (initial)on 12-11-2023 p16 (initial) --- Patient Age/Sex Location Account Attending Physician ALFONSO VERDUGO 63/F [facility] [id number] Dr. Rose Marie Brush MD Specimen: [id number] Received: 12/14/23 Status: CASS Glez Num: [id number] Spec Type: IMMUNO Subm Dr: Dr. Rose Marie rBush MD [facility] [address] [address] SPECIMEN INFORMATION: Tissue Source: B- 8o'clock Clinical Info: Abnormal pap smear of cervix, HPV positive test Specimen Number: [id number] CPT code: 92673,07723 METHODOLOGY: Deparaffinized sections of prefer/formalin-fixed tissue or [...] developed and their performance characteristics determined by [facility]. They may not have been cleared [...] file) Dr. Aly Lundberg, 12/14/23 1458 Normal [facility] Comment on above: Performed By: #### P P16 ####[facility] [address] [place], [place], [phone] PAP IG HPV APTIMA 16/18,45on 10-17-2023 ADEQ Comment Normal . [facility] Comment on above: Order Comment: Speci men Comment: [id number] Comment: Source.............Cervix;EndocervixSpecimen Comment: Other..............Post MenopausalSpecimen Comment: No. of containers..01 ThinPrep Vial Result Comment: Sati sfactory for evaluation. Endocervical and/or squamous metaplastic cells (endocervical component) are present. Performed By: #### L 7400.0280 ####[facility] [address] [place], [place], [phone] COMM . Normal . [facility] Comment on above: Order Comment: Speci men Comment: [id number] Comment: Source.............Cervix;EndocervixSpecimen Comment: Other..............Post MenopausalSpecimen Comment: No. of containers..01 ThinPrep Vial Performed By: #### L 7400.0280 ####[facility] [address] [place], [place], [phone] COMMENT Comment Normal . [facility] Comment on above: Order Comment: Speci men Comment: [id number] Comment: Source.............Cervix;EndocervixSpecimen Comment: Other..............Post MenopausalSpecimen Comment: No. of containers..01 ThinPrep Vial Result Comment: This liquid based ThinPrep(R) pap test was screened with the use of an image guided system. Performed By: #### L 7400.0280 ####[facility] [address] [place], [place], [id number] DIAG Comment Abnormal . [facility] Comment on above: Order Comment: Speci men Comment: [id number] Comment: Source.............Cervix;EndocervixSpecimen Comment: Other..............Post MenopausalSpecimen Comment: No. of containers..01 ThinPrep Vial Result Comment: EPIT HELIAL CELL ABNORMALITY. ATYPICAL SQUAMOUS CELLS OF UNDETERMINED SIGNIFICANCE (ASC-US). CELLULAR CHANGES ASSOCIATED WITH ATROPHY ARE PRESENT. Performed By: #### L 7400.0280 ####[facility] [address] [place], [place], [address] HPV APTIMA, HR Positive Abnormal Negative [facility] Comment on above: Order Comment: Speci men Comment: [id number] Comment: Source.............Cervix;EndocervixSpecimen Comment: Other..............Post MenopausalSpecimen Comment: No. of containers..01 ThinPrep Vial Result Comment: This nucleic acid amplification test detects fourteen high- risk HPV types (16,18,31,33,35,39,45,51,52,56,58,59,66,68) without differentiation. Performed By: #### L 7400.0280 ####[facility] [address] [place], [place], [address] HPV Roxann Rfx Comment Normal . [facility] Comment on above: Order Comment: Speci men Comment: [id number] Comment: Source.............Cervix;EndocervixSpecimen Comment: Other..............Post MenopausalSpecimen Comment: No. of containers..01 ThinPrep Vial Result Comment: Crit eria not met, HPV Genotype not performed. Performed at: - [address] [id number] Machine Packager: Deanne Trevino MD, Phone: [phone] Performed at: = - [address] [id number] Machine Packager: Deanne Trevino MD, Phone: [phone] Performed By: #### L 7400.0280 ####[facility] [address] [place], [place], [id number] PAPSMR Comment Normal . [facility] Comment on above: Order Comment: Speci men Comment: [id number] Comment: Source.............Cervix;EndocervixSpecimen Comment: Other..............Post MenopausalSpecimen Comment: No. [...] do occur. Performed By: #### L 7400.0280 ####[facility] [address] [place], [address] Path.prov.IDC-9 Comment Normal . [facility] Comment on above: Order Comment: Speci men Comment: [id number] Comment: Source.............Cervix;EndocervixSpecimen Comment: Other..............Post MenopausalSpecimen Comment: No. of containers..01 ThinPrep Vial Result Comment: R87. 610 Performed By: #### L 7400.0280 ####[facility] [address] [place], [place], [phone] PERFORM Comment Normal . [facility] Comment on above: Order Comment: Speci men Comment: [id number] Comment: Source.............Cervix;EndocervixSpecimen Comment: Other..............Post MenopausalSpecimen Comment: No. of containers..01 ThinPrep Vial Result Comment: Licha Wade Screen Printing Press Operator (ASCP) Performed By: #### L 7400.0280 ####[facility] [address] [place], [place], [address] SIGN Comment Normal . [facility] Comment on above: Order Comment: Speci men Comment: [id number] Comment: Source.............Cervix;EndocervixSpecimen Comment: Other..............Post MenopausalSpecimen Comment: No. of containers..01 ThinPrep Vial Result Comment: Lorena Figueroa MD, Pathologist Performed By: #### L 7400.0280 ####[facility] [address] [place], [address] [employer] Office Visit Reporton 10-11-2023 Dean [facility] Instruction Office Visit Report [facility] [address], [address] [place] [address] OFFICE VISIT Date of Service: 10/11/23 MR#: [id number] Acct: [id number] Name: ALFONSO VERDUGO PASCALE Rep #: [id number] : 1960 Provider: Dr. 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 Customer Services Required: No Is patient in pain?: No Allergies Penicillins Adverse Reaction (Verified 10/11/23 08:44) Rash Sulfa (Sulfonamide Antibiotics) Adverse Reaction (Verified 10/11/23 08:44) Rash Medications ???Medication ???Instructions ???Recorded ???Confirmed ???Type venlafaxine 75 mg capsule,extended 75 mg PO DAILY #90 caps 03/06/23 10/11/23 Rx release 24 hr phentermine 11.25 mg-topiramate ER 1 cap PO DAILY 30 days #30 caps 09/14/23 10/11/23 Rx 69 mg capsule,ext.xakwlbf37oi mphas (Qsymia) levothyroxine 88 mcg tablet 88 [...] home: Yes additional social history: Remarried to [employer]! 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 History 3 Elective abortions Hx Para 2 Spontaneous abortions 1 Hx # Term Pregnancies Ectopic pregnancies Hx # Pregnancies Multiple births # of living children Past Pregnancies Del. Date Name GA/Weeks Outcome Route Bth Weight Gen Labor Lgth Anesthesia Del [facility] Provider FOB Unknown Vasyl-1987 Unknown [...] acute distress, well developed and well groomed [facility] Head: normal to inspection and normocephalic Ears: [...] to inspectio (more content not included)... Normal [facility] URINE CULTURE [CCL]on 2023 Bacteria identified Cx Nom (U) URCUL See Results Below See Below CULTURE, URINE NORMAL UROGENITAL [place] <10,000 CFU/ml Normal urogenital [place] SOURCE: Urine (Nonspecific) [place] [address] Dale Benoit III, M.D. [id number] SEND TO IC NO Normal [facility] Comment on above: Performed By: #### 2 28900 #### [facility],[address] [place], [place] [address] Bacteria Ur Culton 4 Bacteria identified Cx Nom (U) ORGANISM ID: 1 <10,000 CFU/ml Normal urogenital oneida Normal [facility] Comment on above: Performed By: #### 6 30-4 #### [facility] CLIA [id number] [address] [place], [place] [id number] [place] URINALYSIS WITH MICROSCOPYon 08-02-2023 Amorphous NONE Normal [facility] Comment on above: Performed By: #### 2 49503 #### [facility],[address] [place] [address] Bacteria NONE Normal [facility] Comment on above: Performed By: #### 2 50584 #### [facility],[address] [place] [address] Bilirubin Ql (U) Negative Normal NORMAL: NEGATIVE [facility] Comment on above: Performed By: #### 2 62613 #### [facility],[address] [place] [address] Calcium Ox 2+ Normal NORMAL: NONE [facility] Comment on above: Performed By: #### 2 10991 #### [facility],[address] [place] [address] Casts NONE Normal [facility] Comment on above: Performed By: #### 2 29305 #### [facility],[address] [place] [address] Clarity (U) CLEAR Normal NORMAL: CLEAR [facility] Comment on above: Performed By: #### 2 06020 #### [facility],[address] [place] [address] Color (U) rosa Normal NORMAL: YELLOW [facility] Comment on above: Performed By: #### 2 26804 #### [facility],[address] [place] [address] Crystals LM Nom (Urine sed) SEE BELO Normal [facility] Comment on above: Performed By: #### 2 67941 #### [facility],[address] [place] [address] Epi Cells NONE Normal [facility] Comment on above: Performed By: #### 2 78782 #### [facility],[address] [place] [address] Glucose Ql (U) NORM Normal NORMAL: NORMAL [facility] Comment on above: Performed By: #### 2 86220 #### [facility],[address] [place] [address] Hemoglobin Ql (U) 10 Abnormal NORMAL: NEGATIVE [facility] Comment on above: Performed By: #### 2 18737 #### [facility],[address] [place] [address] Ketone 15 Abnormal NORMAL: NEGATIVE [facility] Comment on above: Performed By: #### 2 99489 #### [facility],[address] [place] [address] Leukocytes 25 Abnormal NORMAL: NEGATIVE [facility] Comment on above: Result Comment: URIN E MICROSCOPIC Performed By: #### 2 31893 #### [facility],[address] [place], [place] [address] Mucous NONE Normal [facility] Comment on above: Performed By: #### 2 15506 #### [facility],[address] [place] [address] Nitrite Ql (U) Negative Normal NORMAL: NEGATIVE [facility] Comment on above: Performed By: #### 2 20362 #### [facility],[address] [place] [address] pH (U) 5 [pH] Normal NORMAL: 5.0-8.0 [facility] Comment on above: Performed By: #### 2 95205 #### [facility],[address] [place] [address] Protein Ql (U) 15 Abnormal NORMAL: NEGATIVE [facility] Comment on above: Performed By: #### 2 66258 #### [facility],[address] [place] [address] Rbc 0-5 Normal 0-3 / hpf [facility] Comment on above: Performed By: #### 2 16914 #### [facility],[address] [place] [address] Sp [place] 1.030 Normal NORMAL: 1.010-1.030 [facility] Comment on above: Performed By: #### 2 12745 #### [facility],[address] [place] [address] Specimen Type R Normal [facility] Comment on above: Performed By: #### 2 73719 #### [facility],[address] [place] [address] URINALYSIS WITH MICROSCOPY Normal [facility] Comment on above: Result Comment: URIN ALYSIS Performed By: #### 2 64887 #### [facility],[address] [place] [address] Urobilinog 1 Abnormal NORMAL: NORMAL [facility] Comment on above: Performed By: #### 2 42378 #### [facility],[address] [place] [address] Wbc 1-5 Normal 0-5 / hpf [facility] Comment on above: Performed By: #### 2 39388 #### [facility],[address] [place] [address] Yeast NONE Normal [facility] Comment on above: Performed By: #### 2 13320 #### [facility],[address] [place] [address] Laboratory - Chemistry and C hemistry - challengeOrdered By: Rose Marie Brush on 03-01-2023 Free T4 [Mass/Vol] 1.21 ng/dL 0.76-1.46 [facility] No Panel InformationOrdered By: Rose Marie Brush on 03-01-2023 Thyroid Stimulating Hormone (TSH) 2.34 uIU/mL 0.358-3.74 [facility] CNPNon 01-01-2023 CNPN Telephone (CARCMN) ALFONSO VERDUGO ([id number]) 1960 F Date Time Provider Department 01/01/23 VINH KAPADIA During your visit today, we recorded the following information about you: Bo Shipley 01/01/2023 9:38 AM Signed ECHO order faxed to [facility] at [phone]. Bo Shipley Allergies As of Date: 01/01/2023 [...] 01/01/23 Normal [facility] Absolute lymphocyte countOrd ered By: Rose Marie Brush on 12-19-2022 Lymphocytes Auto (Unsp spec) [#/Vol] 1.93 10*3/uL 0.83-4.51 [facility] Basophil percentageOrdered B y: Rose Marie Brush on 12-19-2022 Basophils/100 WBC (Bld) 0.8 % 0-[address] [facility] Bilirubin [Mass/Vol] 0.40 mg/dL 0.20-1.00 [facility] Comment on above: For patients on eltr ombopag therapy, use of Dimension [place] TBIL is not recommended. Chloride [Moles/Vol] 107 mmol/L 98-107 [facility] Eosinophils/100 WBC (Bld) 1.9 % 0-5 [facility] Glucose [Mass/Vol] 94 mg/dL 74-106 [facility] Neutrophils (Bld) [#/Vol] 2.8 10*3/uL 2.0-7.7 [facility] Neutrophils/100 WBC (Bld) 53.7 % 47-70 [facility] Potassium [Moles/Vol] 3.9 mmol/L 3.5-5.1 [facility] Protein [Mass/Vol] 7.9 g/dL 6.4-8.2 [facility] Sodium [Moles/Vol] 138 mmol/L 136-145 [facility] WBC (Bld) [#/Vol] 5.2 10*3/uL 4.4-11.0 [facility] Blood erythrocytes count (nu mber/volume)Ordered By: Rose Marie Brush on 12-19-2022 RBC (Bld) [#/Vol] 5.04 10*6/uL 4.2-5.4 [facility] Blood hemoglobin measurement (mass/volume)Ordered By: Rose Marie Brush on 12-19-2022 Hemoglobin (Bld) [Mass/Vol] 13.8 g/dL 12.0-15.0 [facility] Blood lymphocytes/100 leukoc ytesOrdered By: Rose Marie Brush on 12-19-2022 Lymphocytes/100 WBC (Bld) 36.9 % 19-41 [facility] Blood monocytes/100 leukocyt esOrdered By: Rose Marie Brush on 12-19-2022 Monocytes/100 WBC (Bld) 6.5 % 0-10 [facility] Blood platelet mean volumeOr dered By: Rose Marie Brush on 12-19-2022 Platelet mean volume (Bld) [Entitic vol] 10.4 fL 6.2-12.0 [facility] Determination of erythrocyte mean corpuscular volume (MCV)Ordered By: Rose Marie Brush on 12-19-2022 MCV (RBC) [Entitic vol] 87.1 fL 81-99 [facility] Hematocrit Auto (Bld) [Volum e fraction]Ordered By: Rose Marie Brush on 12-19-2022 Hematocrit (Bld) [Volume fraction] 43.9 % 37-47 [facility] Laboratory - Chemistry and C hemistry - challengeOrdered By: Rose Marie Brush on 12-19-2022 ALP [Catalytic activity/Vol] 111 U/L 45-117 [facility] ALT [Catalytic activity/Vol] 23 U/L 13-56 [facility] CO2 [Moles/Vol] 28.0 mmol/L 21.0-32.0 [facility] Globulin (S) [Mass/Vol] 4.3 g/dL 2.2-4.[address] [facility] Urea nitrogen/Creatinine [Mass ratio] 17.6 mg/mg 10-20 [facility] Laboratory - Chemistry and C hemistry - challengeOrdered By: Fabi Alfonso on 12-19-2022 Free T4 [Mass/Vol] 1.55 ng/dL 0.76-1.46 [facility] Laboratory - Hematology and Cell countsOrdered By: Rose Marie Brush on 12-19-2022 Erythrocyte distribution width (RBC) [Entitic vol] 48.2 fL 35.1-43.9 [facility] Erythrocyte distribution width (RBC) [Ratio] 15.0 % 11.6-14.6 [facility] Immature granulocytes/100 WBC (Bld) 0.200 % 0.0-0.9 [facility] Comment on above: IG% - Immature Granu locytes (promyelocytes, myelocytes and metamyelocytes) > 1% indicates that a LEFT SHIFT is Present. MCH (RBC) [Entitic mass] 27.4 pg 27.0-32.0 [facility] Nucleated RBC/100 WBC (Bld) [Ratio] 0 % 0-5 [facility] MCHC Auto (RBC) [Mass/Vol]Or dered By: Rose Marie Brush on 12-19-2022 MCHC (RBC) [Mass/Vol] 31.4 g/dL 32-36 [facility] No Panel InformationOrdered By: Rose Marie Brush on 12-19-2022 Estimated GFR (MDRD) Amer 103 mL/min >60 [facility] Comment on above: GFR Calc Estimated GFR (MDRD) Non-Af Amer 85 mL/min >60 [facility] Comment on above: Non- GFR Calc Thyroid Stimulating Hormone (TSH) 1.45 uIU/mL 0.358-3.74 [facility] Vitamin D 25-Hydroxy 31.4 ng/mL [facility] Comment on above: Vitamin D 25(OH) Sta tus Range Deficiency <20 ng/mL (50nmol/L) Insufficiency 20 - 30 ng/mL (50 - 75 nmol/L) Sufficiency 30 - 100 ng/mL (75 - 250 nmol/L) Toxicity >100 ng/mL (>250 nmol/L) Platelets bldOrdered By: Justin Brush on 12-19-2022 Platelets (Bld) [#/Vol] 318 10*3/uL 150-450 [facility] Serum or plasma albumin alisa urement (mass/volume)Ordered By: Rose Marie Brush on 12-19-2022 Albumin [Mass/Vol] 3.6 g/dL 3.2-5.0 [facility] Serum or plasma albumin/glob ulin mass ratioOrdered By: Rose Marie Brush on 12-19-2022 Albumin/Globulin [Mass ratio] 0.8 {ratio} 0.9-2.4 [facility] Serum or plasma calcium alisa urement (mass/volume)Ordered By: Rose Marie Brush on 12-19-2022 Calcium [Mass/Vol] 8.7 mg/dL 8.5-10.1 [facility] Serum or plasma creatinine m easurement (mass/volume)Ordered By: Rose Marie Brush on 12-19-2022 Creatinine [Mass/Vol] 0.74 mg/dL 0.55-1.02 [facility] Comment on above: The validity of the calculated GFR & GFRAA in patients over 70 years has not been determined. Clinical correlation is essential. Serum or plasma urea nitroge n measurement (mass/volume)Ordered By: Rose Marie Brush on 12-19-2022 Urea nitrogen [Mass/Vol] 13 mg/dL 7-18 [facility] Thin prep Papanicolaou smear with manual screeningOrdered By: Rose Marie Brush on 12-19-2022 Thin prep Papanicolaou smear with manual screening 11 U/L 15-37 [facility] Thin prep Papanicolaou smear with manual screening 3 5-15 [facility] Whole blood hemoglobin A1c/t otal hemoglobin ratio (mass fraction)Ordered By: Rose Marie Brush on 12-19-2022 HbA1c (Bld) [Mass fraction] 5.6 % 3.8-5.6 [facility] Comment on above: Normal < 5.7 % Predi abetic 5.7 - 6.4 % Diabetic >or= 6.5 % Please note range changes. Cervical or vagninal specime n microscopic examination by cytology stain (reported asOrdered By: Rose Marie Brush on 10-05-2022 Cytology report Cyto stain Doc (Cvx/Vag) Comment . [facility] Comment on above: The Pap smear is [...] DNA Probe+sig amp Ql (Cvx) Positive Negative [facility] Comment on above: This nucleic acid am plification test detects fourteen high-risk HPV types (16,18,31,33,35,39,45,51,52,56,58,59,66,68)without differentiation. Laboratory - CytologyOrdered By: Rose Marie Brush on 10-05-2022 Poacher Wringer Operator Cyto stain Nom (Cvx/Vag) [ID] Comment . [facility] Comment on above: Leanna Pate, Cytot echnologist (ASCP) Pathologist Cyto stain Nom (Cvx/Vag) [ID] Comment . [facility] Comment on above: Mandy Figueroa MD, P athologist Laboratory - Miscellaneous t estsOrdered By: Rose Marie Brush on 10-05-2022 Service comment (Unsp spec) [Interp] Comment . [facility] Comment on above: This liquid based Th inPrep(R) pap test was screened withthe use of an image guided system. Service comment (Unsp spec) [Interp] . . [facility] Liquid-based cerv Pap + CT/G C by ABNER w reflex to high-risk HPV for ASCUSOrdered By: Rose Marie Brush on 10-05-2022 Cytology report Cyto stain.thin prep Doc (Cvx/Vag) Comment . [facility] Comment on above: Criteria not met, HP V Genotype not performed.Performed at: - [facility] [id number] Director: Deanne Trevino MD, Phone: [phone] at: = - [facility] [id number] Director: Deanne Trevino MD, Phone: [phone] No Panel InformationOrdered By: Rose Marie Brush on 10-05-2022 Pathology report final diagnosis Narrative Comment . [facility] Comment on above: EPITHELIAL CELL ABNO RMALITY.ATYPICAL SQUAMOUS CELLS OF UNDETERMINED SIGNIFICANCE (ASC-US).CELLULAR CHANGES ASSOCIATED WITH ATROPHY ARE PRESENT. R87.610 MRI BRAIN WO IVCONon 023 [facility] Cervical or vagninal specime n microscopic examination by cytology stain (reported ason 09-30-2021 Cytology report Cyto stain Doc (Cvx/Vag) Comment . [facility] Work Phone: Comment on above: The Pap [...] DNA Probe+sig amp Ql (Cvx) Positive Negative [facility] Work Phone: Comment on above: This nucleic acid am plification test detects fourteen high-risk HPV types (16,18,31,33,35,39,45,51,52,56,58,59,66,68)without differentiation.Performed at: - [facility] [id number] Director: Deanne Trevino MD, Phone: [phone] at: = - [facility] [address] [id number] Director: Deanne Trevino MD, Phone: [phone] Laboratory - Cytologyon 09-19 Poacher Wringer Operator Cyto stain Nom (Cvx/Vag) [ID] Comment . [facility] Work Phone: Comment on above: Julio Rubio , Screen Printing Press Operator (ASCP) Pathologist Cyto stain Nom (Cvx/Vag) [ID] Comment . [facility] Work Phone: Comment on above: Angela Corea MD, Pa thologist Recommended follow-up Cyto stain Nom (Cvx/Vag) Comment . [facility] Work Phone: Comment on above: Suggest follow up as clinically appropriate. Laboratory - Miscellaneous t estson 09-30-2021 Service comment (Unsp spec) [Interp] Comment . [facility] Work Phone: Comment on above: This liquid based Th inPrep(R) pap test was screened withthe use of an image guided system. Service comment (Unsp spec) [Interp] . . [facility] Work Phone: No Panel Informationon 09-30 Pathology report final diagnosis Narrative Comment . [facility] Work Phone: Comment on above: EPITHELIAL CELL ABNO RMALITY.ATYPICAL SQUAMOUS CELLS OF UNDETERMINED SIGNIFICANCE (ASC-US). R87.610 25-Hydroxy D2+D3on 25-Hydroxy D Total 25.7 ng/mL Low 30.0-100.0 [facility] Comment on above: Performed By: #### D 2D3 #### [facility] Chemistry [address] [address] 25-Hydroxy D2 <4.0 Normal [facility] Comment on above: Performed By: #### D 2D3 #### [facility] [facility] Chemistry [address] [place], [place] [address] 25-Hydroxy D3 25.7 ng/mL Normal [facility] Reference Lab Comment on above: Performed By: #### D 2D3 #### [facility] Chemistry [address] [place], [place] [address] Vital Signs Date Time Vital Sign Value Performing Clinician Megan groves 09-08-2024 15:57-0400 Body height 167.[address] Millie Payton MD Work Phone: [facility] 09-08-2024 15:51-0400 Body mass index (BMI) [Ratio] 34.5 kg/m2 Dr. Millie Payton MD Work Phone: [facility] 09-08-2024 15:51-0400 Body weight 97.[address] Millie Payton MD Work Phone: [facility] 09-08-2024 15:51-0400 Diastolic blood pressure 80 mm[Hg] Dr. Millie Payton MD Work Phone: [facility] 09-08-2024 15:51-0400 Heart rate 88 /min Dr. Millie Payton MD Work Phone: [facility] 09-08-2024 15:51-0400 Systolic blood pressure 132 mm[Hg] Dr. Millie Payton MD Work Phone: [facility] 08-20-2024 23:35-0400 Body temperature 98.1 [degF] Dr. Millie Payton MD Work Phone: [facility] 08-20-2024 23:35-0400 Diastolic blood pressure 83 mm[Hg] Dr. Millie Payton MD Work Phone: [facility] 08-20-2024 23:35-0400 Heart rate 70 /min Dr. Millie Payton MD Work Phone: [facility] 08-20-2024 23:35-0400 Respiratory rate 16 /min Dr. Millie Payton MD Work Phone: [facility] 08-20-2024 23:35-0400 SaO2% (BldA) [Mass fraction] 100 % Dr. Millie Paytno MD Work Phone: [facility] 08-20-2024 23:35-0400 Systolic blood pressure 149 mm[Hg] Dr. Millie Payton MD Work Phone: [facility] 08-20-2024 21:14-0400 Body height 167.[address] Millie Payton MD Work Phone: 8(332)447-479704 [place] [address] 08-14-2024 09:11-0400 Body height 167.[address] Millie Payton MD Work Phone: 0(813)387-458404 [place] [address] 08-14-2024 09:11-0400 Body mass index (BMI) [Ratio] 35 kg/m2 Dr. Millie Payton MD Work Phone: 2(103)264-679604 [place] [address] 08-14-2024 09:11-0400 Body temperature 97.3 [degF] Dr. Millie Payton MD Work Phone: 8(250)102-884904 [place] [address] 08-14-2024 09:11-0400 Body weight 98.[address] Millie Payton MD Work Phone: 3(385)371-084204 [place] [address] 08-14-2024 09:11-0400 Diastolic blood pressure 77 mm[Hg] Dr. Millie Payton MD Work Phone: 0(446)908-311904 [place] [address] 08-14-2024 09:11-0400 Heart rate 78 /min Dr. Millie Payton MD Work Phone: [facility] 08-14-2024 09:11-0400 Respiratory rate 18 /min Dr. Millie Payton MD Work Phone: [facility] 08-14-2024 09:11-0400 SaO2% (BldA) [Mass fraction] 99 % Dr. Millie Payton MD Work Phone: [facility] 08-14-2024 09:11-0400 Systolic blood pressure 135 mm[Hg] Dr. Millie Payton MD Work Phone: 1(447)979-723904 [place] [address] 08-13-2024 16:25-0400 Body temperature 97.5 [degF] Dr. Millie Payton MD Work Phone: 6(400)175-664304 [place] [address] 08-13-2024 16:25-0400 Diastolic blood pressure 62 mm[Hg] Dr. Millie Payton MD Work Phone: 1(804)894-275276 [address] 08-13-2024 16:25-0400 Heart rate 65 /min Dr. Millie Payton MD Work Phone: 0(956)119-190176 [address] 08-13-2024 16:25-0400 Respiratory rate 17 /min Dr. Millie Payton MD Work Phone: 9(463)728-411204 [place] [address] 08-13-2024 16:25-0400 SaO2% (BldA) [Mass fraction] 99 % Dr. Millie Payton MD Work Phone: 9(649)726-924404 [place] [address] 08-13-2024 16:25-0400 Systolic blood pressure 128 mm[Hg] Dr. Millie Payton MD Work Phone: 1(596)336-184104 [place] [address] 08-13-2024 10:41-0400 Body height 167.[address] Millie Payton MD Work Phone: 1(971)805-727804 [place] [address] 08-13-2024 10:41-0400 Body mass index (BMI) [Ratio] 33.4 kg/m2 Dr. Millie Payton MD Work Phone: 2(477)654-667304 [place] [address] 08-13-2024 10:41-0400 Body weight 93.[address] Millie Payton MD Work Phone: 8(665)708-642504 [place] [address] 08-04-2024 08:20-0400 Body temperature 97.2 [degF] Dr. Millie Payton MD Work Phone: 6(034)692-523804 [place] [address] 08-04-2024 08:20-0400 Diastolic blood pressure 77 mm[Hg] Dr. Millie Payton MD Work Phone: 8(380)099-076404 [place] [address] 08-04-2024 08:20-0400 Heart rate 55 /min Dr. Millie Payton MD Work Phone: 8(711)993-264376 [address] 08-04-2024 08:20-0400 Respiratory rate 16 /min Dr. Millie Payton MD Work Phone: 3(942)106-710585 [place] [address] 08-04-2024 08:20-0400 SaO2% (BldA) [Mass fraction] 100 % Dr. Millie Payton MD Work Phone: 4(867)689-105685 [place] [address] 08-04-2024 08:20-0400 Systolic blood pressure 113 mm[Hg] Dr. Millie Payton MD Work Phone: 6(106)450-954585 [place] [address] 08-04-2024 06:48-0400 Body height 167.[address] Millie Payton MD Work Phone: 8(243)580-036185 [place] [address] 08-04-2024 06:48-0400 Body mass index (BMI) [Ratio] 33.4 kg/m2 Dr. Millie Payton MD Work Phone: 5(638)462-513485 [place] [address] 08-04-2024 06:48-0400 Body weight [address] Millie Payton MD Work Phone: 4(119)814-494885 [place] [address] 05-30-2024 11:34-0400 Body mass index (BMI) [Ratio] 34 kg/m2 Dr. Millie Payton MD Work Phone: 2(423)972-396185 [place] [address] 05-30-2024 11:34-0400 Body weight 95.[address] Millie Payton MD Work Phone: 3(231)867-327185 [place] [address] 05-30-2024 11:34-0400 Diastolic blood pressure 84 mm[Hg] Dr. Millie Payton MD Work Phone: [facility] 05-30-2024 11:34-0400 Heart rate 71 /min Dr. Millie Payton MD Work Phone: [facility] 05-30-2024 11:34-0400 Systolic blood pressure 125 mm[Hg] Dr. Millie Payton MD Work Phone: [facility] 04-30-2024 08:41-0400 Body mass index (BMI) [Ratio] 33.7 kg/m2 Dr. Millie Payton MD Work Phone: [facility] 04-30-2024 08:41-0400 Body weight 94.[address] Millie Payton MD Work Phone: [facility] 04-30-2024 08:41-0400 Diastolic blood pressure 82 mm[Hg] Dr. Millie Payton MD Work Phone: [facility] 04-30-2024 08:41-0400 Heart rate 77 /min Dr. Millie Payton MD Work Phone: [facility] 04-30-2024 08:41-0400 Systolic blood pressure 130 mm[Hg] Dr. Millie Payton MD Work Phone: [facility] 04-03-2024 13:30-0500 Body mass index (BMI) [Ratio] 33.9 kg/m2 Dr. Millie Payton MD Work Phone: [facility] 04-03-2024 13:30-0500 Body weight 95.[address] Millie Payton MD Work Phone: [facility] 04-03-2024 13:30-0500 Diastolic blood pressure 84 mm[Hg] Dr. Millie Payton MD Work Phone: [facility] 04-03-2024 13:30-0500 Heart rate 67 /min Dr. Millie Payton MD Work Phone: [facility] 04-03-2024 13:30-0500 Systolic blood pressure 133 mm[Hg] Dr. Millie Payton MD Work Phone: [facility] 12-26-2022 09:14-0500 Diastolic blood pressure 94 mm[Hg] Vihn Kapadia MD Work Phone: [facility] 12-26-2022 09:14-0500 Systolic blood pressure 155 mm[Hg] Vinh Kapadia MD Work Phone: [facility] 12-26-2022 09:06-0500 Body height 167.6 cm Vinh Kapadia MD Work Phone: [facility] 12-26-2022 09:06-0500 Body weight 99.79 kg Vinh Kapadia MD Work Phone: [facility] 12-26-2022 09:06-0500 Heart rate 71 /min Vinh Kapadia MD Work Phone: [facility] 12-26-2022 09:06-0500 SaO2% (BldA) [Mass fraction] 98 % Vinh Kapadia MD Work Phone: [facility] 11-23-2022 14:28-0400 Body height 167.[address] Millie Payton Work Phone: [facility] 11-23-2022 14:27-0400 Body mass index (BMI) [Ratio] 36.9 kg/m2 Dr. Millie Payton Work Phone: [facility] 11-23-2022 14:27-0400 Body weight 103.[address] Millie Payton Work Phone: [facility] 11-23-2022 14:27-0400 Diastolic blood pressure 90 mm[Hg] Dr. Millie Payton Work Phone: [facility] 11-23-2022 14:27-0400 Systolic blood pressure 142 mm[Hg] Dr. Millie Payton Work Phone: [facility] 10-05-2022 16:10-0400 Body height 167.[address] Millie Payton Work Phone: [facility] 10-05-2022 16:10-0400 Body mass index (BMI) [Ratio] 36.3 kg/m2 Dr. Millie Payton Work Phone: [facility] 10-05-2022 16:10-0400 Body weight 102.[address] Millie Payton Work Phone: [facility] 10-05-2022 16:10-0400 Diastolic blood pressure 84 mm[Hg] Dr. Millie Payton Work Phone: [facility] 10-05-2022 16:10-0400 Systolic blood pressure 138 mm[Hg] Dr. Millie Payton Work Phone: [facility] 09-30-2021 11:17-0400 Body height 167.[address] Millie Payton Work Phone: [facility] Work Phone: 09-30-2021 11:16-0400 Body mass index (BMI) [Ratio] 36.3 kg/m2 Dr. Millie Payton Work Phone: [facility] Work Phone: 09-30-2021 11:16-0400 Body weight 102.[address] Millie Payton Work Phone: [facility] Work Phone: 09-30-2021 11:16-0400 Diastolic blood pressure 74 mm[Hg] Dr. Millie Payton Work Phone: [facility] Work Phone: 09-30-2021 11:16-0400 Systolic blood pressure 102 mm[Hg] Dr. Millie Payton Work Phone: [facility] Work Phone: 08-09-2021 10:14-0400 Body height 167.6 cm Romero Pelletier MD Work Phone: [facility] 08-09-2021 10:14-0400 Body temperature 97.3 [degF] Romero Pelletier MD Work Phone: [facility] 08-09-2021 10:14-0400 Body weight 94.35 kg Romero Pelletier MD Work Phone: [facility] 08-09-2021 10:14-0400 Diastolic blood pressure 73 mm[Hg] Romero Pelletier MD Work Phone: [facility] 08-09-2021 10:14-0400 Heart rate 64 /min Romero Pelletier MD Work Phone: [facility] 08-09-2021 10:14-0400 Respiratory rate 15 /min Romero Pelletier MD Work Phone: [facility] 08-09-2021 10:14-0400 SaO2% (BldA) [Mass fraction] 99 % Romero Pelletier MD Work Phone: [facility] 08-09-2021 10:14-0400 Systolic blood pressure 144 mm[Hg] Romero Pelletier MD Work Phone: [facility] Encounters Encounter Date Encounter Type Care Provider Facility Start: 09-08-2024 End: 09-08-[address] Rose Marie Brush MD -[facility] Work Phone: Start: 09-08-2024 End: 09-08-[address] Millie Payton MD Work Phone: -[facility] Start: 09-08-2024 End: 09-08-[address] Millie Payton MD Work Phone: -Laboratory Specimen Start: 09-08-2024 End: 09-08-2024 Patient encounter procedure Naty ARRIAZA -Laboratory Specimen Work Phone: Start: 09-08-2024 End: 09-08-2024 ambulatory Millie Payton Facility:[facility] Start: 09-01-2024 End: 09-01-2024 Patient encounter procedure Naty ARRIAZA -[facility] Work Phone: Start: 09-01-2024 End: 09-01-[address] Millie Payton MD Work Phone: -[facility] Start: 08-20-2024 End: 08-20-2024 Emergency department patient visit Dr. Millie Payton MD Work Phone: -Emergency Department Work Phone: Start: 08-14-2024 End: 08-14-[address] Jeet Roberts MD -[facility] Work Phone: Start: 08-14-2024 End: 08-14-[address] Milile Payton MD Work Phone: [facility] Work Phone: Start: 08-13-2024 End: 08-13-2024 Emergency department patient visit Dr. Millie Payton MD Work Phone: -Emergency Department Work Phone: Start: 08-04-2024 Non-patient / Non-visit Dr. Dc Lopez MD -[facility] Start: 08-04-2024 End: 08-04-2024 Admission to same day surgery center Dr. Maryellen Lopez MD -Endoscopy Work Phone: Start: 08-04-2024 End: 08-04-[address] Millie Payton MD Work Phone: [facility] Work Phone: Start: 07-15-2024 ambulatory SELF SELF Facility:[facility] Start: 05-30-2024 End: 05-30-[address] Rose Marie Brush MD -[facility] Work Phone: Start: 05-30-2024 End: 05-30-2024 ambulatory Butros Latouf Facility:[facility] Start: 04-30-2024 End: 04-30-[address] Rose Marie Brush MD -[facility] Work Phone: Start: 04-30-2024 End: 04-30-2024 ambulatory Butros Latouf Facility:[facility] Start: 04-08-2024 End: 04-08-2024 Patient encounter procedure Tracey ARRIAZA -[facility] Work Phone: Start: 04-08-2024 End: 04-08-2024 ambulatory Tracey Hudson Facility:[facility] Start: 04-01-2024 ambulatory Butros Latouf Facility: [facility] Start: 03-05-2024 End: 03-05-2024 ambulatory Tracey Hudson Facility:[facility] Start: 01-23-2024 End: 01-23-2024 ambulatory Butros Latouf Facility:[facility] Start: 01-21-2024 ambulatory MILLIE PAYTON [facility] Start: 12-31-2023 ambulatory MILLIE MA [facility] [place] Start: 12-31-2023 Encounter for genera l adult medical examination without abnormal findings [facility]IE [facility] Start: 12-28-2023 End: 12-28-2023 ambulatory BUTROS LATOUF Facility:[facility] Start: 12-28-2023 Encounter for genera l adult medical examination without abnormal findings MILLIE PAYTON [facility] Start: 12-11-2023 End: 12-11-2023 ambulatory Butros Latouf Facility:[facility] Start: 12-11-2023 End: 12-11-2023 ambulatory Butros Latouf Facility:[facility] Start: 10-11-2023 End: 10-11-2023 ambulatory Butros Latouf Facility:[facility] Start: 10-11-2023 End: 10-11-2023 ambulatory Butros Latouf Facility:[facility] Start: 08-02-2023 End: 08-02-2023 ambulatory MILLIE PAYTON [facility] Start: 03-01-2023 End: 03-01-[address] Millie Payton Work Phone: [facility] Work Phone: Start: 03-01-2023 End: 03-01-[address] Millie Payton Work Phone: [facility]-Laboratory, OP Pavilion Start: 02-07-2023 Non-patient / Non-visit Dr. Baltazar Payton Work Phone: [facility] Start: 02-07-2023 End: 02-07-[address] Millie Payton Work Phone: [facility] Work Phone: Start: 02-07-2023 End: 02-07-[address] Millie Payton Work Phone: [facility]-Cardiovascular Services Work Phone: Start: 01-01-2023 Telephone encounter [...] / Non-visit Dr. Millie Payton Work Phone: [facility] Work Phone: Start: 12-19-2022 End: 12-19-[address] Millie Payton Work Phone: [facility] Work Phone: Start: 12-19-2022 End: 12-19-[address] Millie Payton Work Phone: [facility]-Pulmonary Services/Neurology Work Phone: Start: 11-23-2022 End: 11-23-[address] Millie Payton Work Phone: [facility] Work Phone: Start: 11-23-2022 End: 11-23-[address] Millie Payton Work Phone: [facility]-Outpatient Breast Imaging Work Phone: Start: 10-05-2022 End: 10-05-[address] Millie Payton Work Phone: [facility] Work Phone: Start: 10-05-2022 End: 10-05-[address] Millie Payton Work Phone: [facility]-Laboratory, Specimen Work Phone: Start: 10-05-2022 End: 10-05-[address] Millie Payton Work Phone: [facility] Work Phone: Start: 02-28-2022 Telephone encounter Romero Pelletier MD Work Phone: [facility] Comment on above: Results (MRI) Start: 02-21-2022 End: 02-21-2022 Subsequent hospital visit by physician Mri Radio [facility] (I-Stat/1.5t) Work Phone: Radiology Comment on above: Transient diplopia [ H53.2] Start: 11-07-2021 Telephone encounter Romero Pelletier MD Work Phone: [facility] Comment on above: Insurance Authorizat ion (/ Imaging Order ) Start: 10-07-2021 End: 10-07-[address] Millie Payton Work Phone: [facility] Work Phone: Start: 10-07-2021 End: 10-07-[address] Millie Payton Work Phone: [facility]-Outpatient Breast Imaging Start: 09-30-2021 End: 09-30-[address] Millie Payton Work Phone: [facility] Start: 08-09-2021 End: 08-09-2021 Patient encounter procedure [...] material Romero Pelletier MD Work Phone: Start: 08-19-[address] Millie Payton Work Phone: Start: [...] Treatment Date Care Activity Detail Author Start: 09-26-2024 ambulatory Ambulatory Facility:[facility] Start: 09-23-2024 ambulatory Ambulatory Facility:[facility] Start: 09-08-[address] [facility] Start: 08-20-2024 [facility] Start: 08-13-2024 [facility] Start: 08-04-2024 Colsc flx w/rmvl of tumor polyp lesion snare tq COLONOSCOPY W/LESION REMOVAL [facility] Start: 08-04-2024 Patient discharge [facility] Start: 10-20-2022 Covid-19 Vaccine ( season) Covid-19 Vaccine ( season) [facility] Start: 10-20-2022 Influenza vaccination [facility] Start: 10-05-2022 Liquid based cervica l cytology screening [facility] Start: 08-05-2022 Adult depression scr eening assessment DEPRESSION SCREENING [facility] Start: 2022 RSV Vaccine (1 - 1-d ose 60+ series) RSV Vaccine (1 - 1-dose 60+ series) [facility] Start: 02-19-2022 DEPRESSION ASSESSMENT DEPRESSION ASS ESSMENT [facility] Start: 10-20-2021 Influenza vaccination C [facility] Start: 09-30-2021 Liquid based cervica l cytology screening [facility] Work Phone: Start: 09-23-2020 COVID-19 VACCINE (3 - Booster for Moderna series) COVID-19 VACCINE (3 - Booster for Moderna series) [facility] Start: 06-18-2020 COVID-19 VACCINE (3 - Booster for Moderna series) COVID-19 VACCINE (3 - Booster for Moderna series) [facility] Start: 04-23-2020 COVID-19 VACCINE (2 - Moderna series) COVID-19 VACCINE (2 - Moderna series) [facility] Start: 03-18-2020 HPV TESTING HPV TESTING [facility] Start: 05-11-2017 PAP TESTING PAP TESTING [facility] Start: 05-05-2017 Mammography [facility] Start: 2012 SHINGRIX VACCINE (1 of 2) SANTILLAN GRIX VACCINE (1 of 2) [facility] Start: 2007 COLOGUARD (FIT-DNA) COLOGUARD (FIT-D NA) [facility] Start: 2007 Colonoscopy COLONOSCOPY [facility] Start: 2007 COLORECTAL CANCER SCREENING COLORECTAL CANCER SCREENING [facility] Start: [address] COLONOGRAPHY [facility] Start: 2007 DIABETES SCREEN DIABETES SCREEN [facility] Start: 2007 Diabetes Screening Diabetes Screenin g [facility] Start: 2007 FECAL OCCULT BLOOD FECAL OCCULT BLOO D [facility] Start: 2007 Lipid 1996 panel - S zoey or Plasma Lipid Screening [facility] Start: 2007 LIPID SCREEN LIPID SCREEN [facility] Start: 2007 SIGMOIDOSCOPY SIGMOIDOSCOPY [facility] Start: 1981 Urine microalbumin profile [facility] Start: 1980 HEPATITIS C SCREENING HEPATITIS C SC [facility] CT Abdomen and Pelvi s W contrast IV [facility] End: 12-27-2023 Echocardiography ECHO Cardiology Routine Abnormal ECG Encounter for screening for cardiovascular disorders 1 Occurrences starting 12/26/2022 until 12/27/2023 [facility] Work Phone: Comment on above: 1 Occurrences starti ng 12/26/2022 until 12/27/2023 Glucose [Mass/volume ] in Serum or Plasma [facility] Work Phone: Lipid 1996 panel - S zoey or Plasma [facility] Work Phone: End: 09-08-2022 Mra head w/o contrst material MRA BRAIN WO IVCON Radiology Routine Transient diplopia Transient cerebral ischemia, unspecified type 1 Occurrences starting 08/09/2021 until 09/08/2022 [facility] Work Phone: Comment on above: 1 Occurrences starti ng 08/09/2021 until 09/08/2022 End: 09-08-2022 Mri brain brain stem w/o contrast material MRI BRAIN WO IVCON Radiology Routine Transient diplopia Transient cerebral ischemia, unspecified type 1 Occurrences starting 08/09/2021 until 09/08/2022 [facility] Work Phone: Comment on above: 1 Occurrences starti ng 08/09/2021 until 09/08/2022 OUTSIDE VENDOR CARDI AC OUTPATIENT EXTENDED RHYTHM RECORDING (WITHOUT TELEMETRY) OUTSIDE VENDOR CARDIAC OUTPATIENT EXTENDED RHYTHM RECORDING (WITHOUT TELEMETRY) Holter Routine Abnormal ECG Encounter for screening for cardiovascular disorders Ordered: 12/26/2022 [facility] Work Phone: Comment on above: Ordered: 12/26/2022 Path report.final Dx Spec [facility] Patient Education Crohns Disease Lifestyle Changes ED Hypertension, To Be Confirmed [facility] Work Phone: Patient referral [facility] Work Phone: Protein measurement [facility] Radionuclide study o f abdomen [facility] Thyroid stimulating hormone measurement [facility] Work Phone: [facility] Payers Date Payer Category Payer Self-pay [id number] 2022 Private Health Insurance [id number] 2021 Unknown [employer] PPO [id number] 2021-Present [phone] [address] [place] [address] PPO [id number] 2021 Unknown [employer] Carlos Alberto PPO [id number] 2021-Present [phone] [address] [place] [address] PPO [id number] 2003 Unknown [id number] 1962 Unknown [id number] 2.16.840.1.451357.3.579.2 .651 1960 Unknown [id number] 2.16.840.1.268086.3.579.2 .651 1960 Unknown [id number] 2.16.840.1.971764.3.579.2 .651 1960 Unknown [id number] 2.16.840.1.647331.3.579.2 .651 1960 Unknown [id number] 2.16.840.1.861960.3.579.2 .594 Unknown [facility] PACKAGE PLAN [id number] Unknown [id number] 2.16.840.1.117925.3.579.2 .462 Unknown [id number] 2.16.840.1.068411.3.579.2 .462 Unknown [id number] 2.16.840.1.120667.3.579.2 .462 Unknown [id number] 2.16.840.1.694615.3.579.2 .462 Unknown [id number] 2.16.840.1.512451.3.579.2 .462 Unknown [id number] 2.16.840.1.080855.3.579.2 .462 Unknown [id number] 2.16.840.1.575978.3.579.2 .462 Unknown [id number] 2.16.840.1.507567.3.579.2 .462 Unknown [id number] 2.16.840.1.208273.3.579.2 .462 Unknown [id number] 2.16.840.1.425274.3.579.2 .462 Unknown [id number] 2.16.840.1.180410.3.579.2 .462 Unknown [id number] 2.16.840.1.719404.3.579.2 .462 Unknown [id number] 2.16.840.1.792313.3.579.2 .462 Unknown [id number] 2.16.840.1.097897.3.579.2 .462 Unknown [id number] 2.16.840.1.093416.3.579.2 .462 Unknown [id number] 2.16.840.1.068325.3.579.2 .462 Unknown [id number] 2.16.840.1.411715.3.579.2 .462 Unknown [id number] 2.16.840.1.293030.3.579.2 .462 Unknown [id number] 2.16.840.1.670895.3.579.2 .462 Unknown [id number] 2.16840.1.584729.3.579.2 .462 Unknown [id number] 2.16840.1.601107.3.579.2 .462 Social History Date Type Detail Facility Start: 12-26-2022 End: 09-08-2024 Tobacco smoking status NHIS Never smoked tobacco [facility] Start: 08-09-2021 End: 12-26-2022 Alcohol intake Current drinker of alcohol (finding) [facility] Start: 08-09-2021 End: 12-26-2022 Alcohol intake [facility] Start: 1960 Sex Assigned At Female [facility] Start: 07-30-2021 End: 08-09-2021 Exposure to SARS-CoV-2 (event) Not sure [facility] Start: 09-30-2021 End: 10-05-2022 Tobacco smoking status NHIS Unknown if ever smoked [facility] Start: 09-17-2019 Non-smoker [facility] Start: 08-09-2021 End: 12-26-2022 Tobacco use panel [facility] Adult Depression Screening Assessment 0 [facility] Start: 07-20-2021 Gender identity Identifies as female gender (finding) [facility] Start: 12-26-2022 Tobacco use and exposure Smokeless tobacco non-user [facility] NEGATED: Highlighted row Not [facility] Goals Date Patient Goal Desired Activity /State Mental Status Date Assessment Result Facility 08-04-2024 Cognitive function Voice/Name [facility] Work Phone: Clinical Notes 08-09-2021 to 08-20-2024 Note Date & Type Note Facility 08-20-2024 Discharge summary [facility] 08-20-2024 Radiology Diagnostic study note [facility] Imaging Services [address] [place], [place] [address] Abdomen/Pelvis W IV Cont ONLY MR#: [id number] Acct: [id number] Name: ALFONSO VERDUGO Rep #: [id number] : 1960 F 64 From: Mireya Lombardo MD PCP: Dr. Millie Payton MD Status: REG ER Study:Abdomen/Pelvis W IV Cont ONLY Date of E xam: 08/20/24 Exam# [id number] Ordering Dr: Milo Mcdonald MD PROCEDURE: ABDOMEN/PELVIS [...] secondary to infection. Advise correlation. Reading Location: [place] [address] CC: Dr. Millie Payton MD; Dr. Diego Mcdonald MD ~ Geneticist: Signed [facility] 08-20-2024 Discharge summary Note Date/Time August 20, 2024 11:28pm [facility] Medical Records Department [address] [place] [address] Emergency Department Summary 08/20/24 MR#: [id number] Acct: [id number] Name: ALFONSO VERDUGO Rep #:[id number] : 1960 64 From: Diego Mcdonald MD [...] cap PO Q24H 08/20 Unknown History mg capsule,ext.gsijzkj30bs multphas (Qsymia) Allergy/AdvReac Type Severity Reaction Status [...] home: Yes additional social history: Remarried to [employer]! 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 [employer] Physical Exam Const Vital Signs: 08/20/24 21:14 Temperature 97.5 F L Temperature Source Temporal Pulse Rate 80 Respiratory Rate 18 Blood Pressure 154/79 H Blood Pressure Mean 104 Pulse Ox 97 Oxygen Delivery Method Room Air [facility] Lab Data Attestation: I reviewed the patient's [...] % (Auto) 66.4 Lymph % (Auto) 24.2 Thayer % (Auto) 7.2 Eos % (Auto) 1.4 [...] secondary to infection. Advise correlation. Reading Location: [facility]-2 CT of the abdomen pelvis with IV contrast was reviewed by me at 2209. The liverand spleen appear normal. Kidneys appear normal. The appendix appears normal. There appears to be sludge in the gallbladder. There is no thickening of the gallbladder wall. Awaiting formal read by radiologist. Radiologist interpretedas jejunal enteritis. Since this been going on for some time and she has no diarrhea we will treat with ciprofloxacin and metronidazole. Will have marketing secretary schedule appointment to see Dr. Bess [...] not mean you have Crohn'sdisease. Print Language: Guyanese Disposition Disposition: Home, Self Care What to do if you have Problems For any increased pain, shortness of breath, bleeding, nausea or vomiting, chestpain, or any unexpected problems, contact your Primary Care Provider. Call [facility] ([phone]) or report to the closest Emergency Room. Call 911 if necessary. 08/20/242327 <Electronically signed by Diego Mcdonald MD> Cosigner Signature (if applicable): CC: Dr. Millie Payton MD ~ Signed [facility] Work Phone: 1(794) 586-683607-01-2025 Hospital Discharge instructionsAdditional Instructions 1. No alcoholic [...] This does not mean you have Crohn's disease.[facility] Work Phone: 1(929) 769-439106-25-2025 Discharge summary [facility] Medical Records Department [address] [place] [address] Emergency Department Summary 08/13/24 MR#: [id number] Acct: [id number] Name: ALFONSO VERDUGO Rep #:[id number] : 1960 64 From: Mich Wheatley DO [...] with 1 polyp removed and called the silk snapper office and they state that she should [...] pain does not get exacerbated with eating. [facility] Medical History Wears glasses Wears contact [...] knew that she was at [facility] the year is 2024 Skin: Warm, [...] % (Auto) 59.5 Lymph % (Auto) 31.3 Thayer % (Auto) 6.0 Eos % (Auto) 2.2 [...] Sl. Cloudy Urine pH 6.0 Ur Specific [place] 1.010 Urine Protein Negative Urine Glucose (UA) [...] acute cholecystitis. Nonspecific echogenic pancreas. Reading Location: [facility] Discharge Plan Triage Chief Complaint: Abd [...] with worsening symptoms or concerns. Print Language: Guyanese Disposition Disposition: Home, Self Care What to do if you have Problems For any increased pain, shortness of breath, bleeding, nausea or vomiting, chestpain, or any unexpected problems, contact your Primary Care Provider. Call [facility] ([phone]) or report tothe closest Emergency Room. Call 911 if necessary. 08/13/24 1608 Cosigner Signature (if applicable): CC: Dr. Millie Payton MD ~ Signed [facility]06-25-2025 Radiology Diagnostic study note [facility] Imaging Services [address] [place] [address] Abdomen Limited MR#: [id number] Acct: [id number] Name: ALFONSO VERDUGO Rep #: [id number] : 1960 F 64 From: Zofia Guadalupe MD PCP: Dr. Millie Payton MD Status: REG ER Study:Abdomen Limited Date of Exam: 07/21 07/13 Exam# [id number] Ordering Dr: Karen Wheatley DO PROCEDURE: ABDOMEN LIMITED 08/13/2024 REASON [...] acute cholecystitis. Nonspecific echogenic pancreas. Reading Location: [facility] CC: Dr. Millie Payton MD; Dr. Mich Wheatley DO ~ Geneticist: Signed [facility]06-25-2025 Discharge summary Author Mich Wheatley [facility] Note Date/Time August 13, 2024 4:08 pm [facility] Medical Records Department [address] [facility] [place] [address] Emergency Department Summary 08/13/24 MR#: [id number] Acct: [id number] Name: ALFONSO VERDUGO Rep #:[id number] : 1960 64 From: Mich Wheatley DO [...] with 1 polyp removed and called the silk snapper office and they state that she should [...] pain does not get exacerbated with eating. [facility] Medical History Wears glasses Wears contact [...] social history: Remarried to Rich! 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 [employer] ROS ED ROS Narrative Constitutional: Denies fevers, [...] knew that she was at [facility] the year is 2024 Skin: Warm, [...] % (Auto) 59.5 Lymph % (Auto) 31.3 Thayer % (Auto) 6.0 Eos % (Auto) 2.2 [...] Sl. Cloudy Urine pH 6.0 Ur Specific [place] 1.010 Urine Protein Negative Urine Glucose (UA) [...] acute cholecystitis. Nonspecific echogenic pancreas. Reading Location: [facility] Discharge Plan Triage Chief Complaint: Abd [...] with worsening symptoms or concerns. Print Language: Guyanese Disposition Disposition: Home, Self Care What to do if you have Problems For any increased pain, shortness of breath, bleeding, nausea or vomiting, chestpain, or any unexpected problems, contact your Primary Care Provider. Call [facility] ([phone]) or report to the closest Emergency Room. Call 911 if necessary. 08/13/24 1608 <Electronically signed by Mich Wheatley DO> Lisseth Signature (if applicable): CC: Dr. Millie Payton MD ~ Signed [facility] Work Phone: 1(742) 523-752306-16-2025 Consult note [facility] Medical Records Department [address] [place] [address] Anesthesia Postop Eval I 08/04/2410 MR#: [id number] Acct: [id number] Name: ALFONSO VERDUGO PASCALE Rep #:[id number] : 1960 64 From: Juancarlos Wheatley PCP: Dr. Millie Payton MD Status:REG [facility] Y Race: C Location: [place] [address] Anesthesia: Postop Eval I Current Vital Signs [...] completed: Yes 08/04/24811 > Date _ Juancarlos Montanez Signature: Date CC: ~ Signed [facility]06-16-2025 Procedure note [facility] Medical Records Department [address] [facility] [place] [place] [address] Operative Report - CC Letter MR#: [id number] Acct: [id number] Name: ALFONSO VERDUGO PASCALE Rep #:[id number] : 1960 64 From: Maryellen Lopez MD PCP: Dr. Millie Payton MD Status:REG [facility] 08/04/2024 Millie Payton Re : Colonoscopy procedure [...] been signed electronically. 08/04/24802 Date _ Maryellen Lopez MD Cosigner Signature: Date (if indicated) CC: Dr. Millie Payton MD; Dr. Maryellen Lopez MD ~ Date Dictated: 08/04/24726 Date Transcribed: Geneticist: TR Signed [facility]06-16-2025 Procedure note [facility] Medical Records Department [address] [place] [address] Colonoscopy Report MR#: [id number] Acct: [id number] Name: ALFONSO VERDUGO PASCALE Rep #:[id number] : 1960 64 From: Maryellen Lopez MD PCP: Dr. Millie Payton MD Status:REG [facility] Patient Name: Alfonso Verdugo Procedure Date: 08/04/2024 [...] pathology results. Procedure Code(s): --- Professional --- 54328, PT, Colonoscopy, flexible; with removal of tumor(s), polyp(s), or other lesion(s) by snare technique Diagnosis Code(s): --- Professional --- Z86.010, Personal history of colonic polyps D12.4, Benign neoplasm of descending colon Z80.0, Family history of malignant neoplasm of digestive organs CPT copyright 2021 [employer]. All rights reserved. The codes documented in this report are preliminary and upon compliance assistant review may be revised to meet current compliance requirements. MD Maryellen Ramires MD 08/04/2024 8:03:27 AM This report has been signed electronically. Number of Addenda: 0 Note Initiated On: 08/04/2024 7:27 AM 08/04/24802 Date _ Maryellen Lopez MD Cosigner Signature: Date (if indicated) CC: Dr. Millie Payton MD; Dr. Maryellen Lopez MD ~ Date Dictated: 08/04/24726 Date Transcribed: Geneticist: TR Signed [facility]06-16-2025 History and physical note [facility] Medical Records Department [address] [place] [address] History & Physical Exam 08/04/24719 MR#: [id number] Acct: [id number] Name: ALFONSO VERDUGO PASCALE Rep #:[id number] : 1960 64 From: Maryellen Lopez MD PCP: Dr. Millie Payton MD Status:[facility] Location: [address] - General General Date of Service: 08/04/24 HPI Narrative ALFONSO VERDUGO, is a 64 F who presents for screening colonoscopy due history of colon polyps?tubular adenoma. Patient last colonoscopy was 5 years ago with , about 4 years ago patient's brotherwas diagnosed with colon cancer at age 55.. Patient has bowel movements daily denies any blood. Patient denies any chronic abdominal pain/nausea/vomiting/reflux. [facility] Medical History Wears glasses Wears contact [...] home: Yes additional social history: Remarried to [employer]! 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 Past Medical/Surgical History Planned Operation [...] Rash Discharge Is Pt Admitted From a Prison, or a Snf: No After D/C, Where Do you Plan to Go: Return Home From the [facility] History Number of Risk Factors: 4 Vital [...] Payton MD; Dr. Maryellen Lopez MD~ Signed [facility]06-16-2025 [facility] Medical Records Department [address] [place] [address] History Physical Exam 08/04/24 0720 MR#: [id number] Acct: [id number] Name: ALFONSO VERDUGO Rep #: [id number] : 1960 64 From: Maryellen Lopez MD PCP: Dr. Millie Payton MD Status:REG [facility] Location: [facility]12-1 HPI - General General Date of Service: [...] blood. Patient denies any chronic abdominal pain/nausea/vomiting/reflux. [facility] Medical History Wears glasses Wears contact [...] of an Orthopedic Prob (more content not included)...[facility]06-16-2025 Consult note [facility] Medical Records Department [address] [place] [address] Pre-Anesthesia Evaluation 08/04/24 0710 MR#: [id number] Acct: [id number] Name: ALFONSO VERDUGO Rep #:[id number] : 1960 64 From: Do martins CRNA PCP: Dr. Millie Payton MD Status:REG SDC Y Race: C Location: [place] [address] ASA Classification* ASA Classification ASA Classification: 2 [...] Procedure(s): COLONOSCOPY-OA Anesthesia History Anesthesia History - teacher advisor: Anesthesia History - teacher advisor Hx Hospitalization No 07/31/24 10:35 Any Problems [...] take am of surgery PONV PONV - teacher advisor: PONV - teacher advisor Female Yes 07/31/24 10:35 HX of Motion [...] 08/04/24 06:48 Respiratory Assessment Respiratory Assessment - teacher advisor: Respiratory Tract Infection Hx - teacher advisor Hx Respiratory Tract Infection No 07/31/24 10:35 STOP Sleep Apnea STOP Sleep Apnea - teacher advisor: STOP Sleep Apnea - teacher advisor Hx Hypertension No 07/31/24 10:35 Hx Sleep [...] Tobacco Use History Tobacco Use History - teacher advisor: Tobacco Use History - teacher advisor Tobacco Use Smoking Status Never smoker 07/31/24 10:35 Hx Tobacco Use No 07/31/24 10:35 Years Smoking Packs Smoked per Day Smoking Cessation Date was within the last 15 years Hx Smoking Cessation Date Hx Smoking Cessation Counseling Hematologic Medial History Hematologic Hx - teacher advisor: 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 Hx of Blood Transfusion No 07/31/24 10:35 [...] confused, unrespo /Reproduction History /Reproductive History - teacher advisor: /Reproductive Hx- teacher advisor Hx Now No 07/31/24 10:35 Gestational Age (in weeks): EDC: Hx Hx Para Hx Section SAB No 07/31/24 10:35 Active Medications Active Medications: Current Medications Generic Name Dose Route Start Last Admin Trade Name Marek PRN Reason Stop Dose Admin Lactated Ringer's 1,000 mls @ 30 mls/hr 08/04/24 06:45 08/04/24 06:52 IV 30 mls/hr .[id number] Administration PFSH Medical History Wears glasses Wears [...] additional complaints, except as documented. 08/04/24 0716 nski DB2 SYSTEMS PROGRAMMER> Date _ Do Gloria [employer] SYSTEM[employer] PROGRAMMER Cosigner Signature: Date CC: ~ Signed [facility]04-11-2025 Evaluation note* Diagnosis Onset Date Resolution Status Admit Date Depression with anxiety acute A 2024 11:27am Goiter acute May 30 11:27am Obesity (BMI 30.0-34.9) acute A 2024 11:27am Other obesity acute May 30, [...] abdominal pain acute September 01, 2024 11:04am [facility] Work Phone: 1(952) 649-454704-11-2025 Evaluation note* Diagnosis Onset Date Resolution Status Admit Date Depression with anxiety acute A 2024 11:27am Goiter acute May 30 11:27am Obesity (BMI 30.0-34.9) acute A 2024 11:27am Other obesity acute May 30, [...] abdominal pain acute September 01, 2024 11:04am Depression with anxiety acute 2024 3:47pm Goiter acute September 08 3:47pm Obesity (BMI 30.0-34.9) acute 2024 3:47pm Other obesity acute September 08, 2024 3:47pm S/P gastric surgery acute September 08, 2024 3:47pm [facility] Work Phone: [phone]) 504-532203-12-2025 Evaluation note* Diagnosis Onset Date Resolution Status Admit Date Depression with anxiety acute [facility] 2024 8:32am Obesity (BMI 30.0-34.9) acute [facility] 2024 8:32am Other obesity acute April 30, 2024 8:32am S/P gastric surgery acute April 30, 2024 8:32am Depression with anxiety acute [facility] 2024 11:27am Goiter acute May 30 11:27am Obesity (BMI 30.0-34.9) acute A [facility] 2024 11:27am Other obesity acute May 30, 2024 11:27am S/P gastric surgery acute May 30, 2024 11:27am Family history of colon cancer acute August 04, 2024 6:25am Hx of colonic polyps acute August 04, 2024 6:25am [facility] Work Phone: [phone] Evaluation note* Diagnosis Onset Date Resolution Status Admit Date Depression with anxiety acute [facility] 2024 8:32am Obesity (BMI 30.0-34.9) acute [facility] 2024 8:32am Other obesity acute April 30, 2024 8:32am S/P gastric surgery acute April 30, 2024 8:32am Depression with anxiety [facility] 2024 11:27am Goiter acute May 30 11:27am Obesity (BMI 30.0-34.9) [facility] 2024 11:27am Other obesity acute May 30, 2024 11:27am S/P gastric surgery acute May 30, 2024 11:27am Family history of colon cancer acute August 04, 2024 6:25am Hx of colonic polyps acute August 04, 2024 6:25am Cholelithiasis acute August 14, 2024 8:59am [facility] Work Phone: 1([phone]) [phone] Evaluation note* Diagnosis Onset Date Resolution Status Admit Date Depression with anxiety acute [facility] 2024 8:32am Obesity (BMI 30.0-34.9) acute M 2024 8:32am Other obesity acute April 30, [...] abdominal pain acute August 14, 2024 8:59am [facility] Work Phone: 1(991) 939-854202-02-2025 Consult note Author Juancarlos Wheatley [facility] Note Date/Time August 04, 2024 8:12 am [facility] Medical Records Department [address] [place] [address] Anesthesia Postop Eval I 08/04/24 0810 MR#: [id number] Acct: [id number] Name: ALFONSO VERDUGO PASCALE Rep #:[id number] : 1960 64 From: Juancarlos Wheatley PCP: Dr. Millie Payton MD Status:REG [facility] Y Race: C Location: [place] [address] Anesthesia: Postop Eval I Current Vital Signs [...] Postop Eval 1 completed: Yes 08/04/24 0812 <Electronically signed by Juancarlos Wheatley > Date _ Juancarlos Wheatley Noeligner Signature: Date CC: ~ Signed [facility] Work Phone: [phone]) [phone] Miscellaneous Notes* Telephone Encounter - Bo Shipley - 01/01/2023 9:38 AM EST ECHO order faxed to [facility] at [phone]. Bo Shipley documented [facility] Miscellaneous Notes* Telephone Encounter - Bo Shipley - 12/26/2022 12:14 PM EST Office notes faxed to Dr. Payton ([phone]) and Dr. Brush's ([phone])offices. Bo Shipley documented in this encounterMem[facility]11-07-2023 History of Present illness Narrative* Susan Marin - 12/26/2022 10:43 AM EST EVENT MONITOR DISPOSABLE PATCH INSTRUCTIONS Patient Name: Alfonso Verdugo [facility] Number: [id number] Skin prepped and cleansed with alcohol Patch secured to prepped area Monitor Activated Serial #: [id number] Patient Instructed: Prescribed order timeframe Bathing guidelines Usage of event button and diary documentation Return of monitor at the end of prescribed order Call with problems [phone] or [phone]. [phone] Patient expresses a good understanding of instructions Susan Marin documented in this encounterMem[facility]11-07-2023 Instructions* Patient Instructions* Vinh Kapadia MD [...] 3rd hand smoke.N/A #5 Weight loss : [place]y BMI (Body Mass Index = weight (kg) [...] Face time was minutes. documented in this encounterMemorial [facility]11-07-2023 History of Present illness Narrative* Vinh Kapadia MD - 12/26/2022 8:45 AM EST Images from the original note were not included. [facility] [place] [facility] Department of Cardiovascular Medicine SECTION OF CLINICAL CARDIOLOGY OUTPATIENT VISIT DATE December 26, 2022 OUTPATIENT VISIT TYPE NEW PRIMARY CARE PHYSICIAN: Millie Payton (Evelio) [address] [place] [address] REFERRING PHYSICIAN: Millie Campa) [address] [facility] [address] CHIEF COMPLAINT: Abnormal ECG - Cardiac clearance HISTORY OF PRESENT ILLNESS: NURSING INTAKE: Ms. Verdugo is a 62 year old female from [place], [place] here today for cardiovascular evaluation related to abnormal EKG reading. She mentions that before she starts a medication from her CENTER LEAD CONSULTANT for weight loss, her OB had her get an EKG done which came back abnormal. Her OB wanted her to see cardiology to ensure everything is okay from a cardiac standpoint prior to starting this medication. This isher first time seeing a manager part. 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 Referred by CENTER LEAD CONSULTANT for cardiac clearance prior to initiating phentamine [...] 3rd hand smoke.N/A #5 Weight loss : [place] BMI (Body Mass Index = weight (kg) [...] - continue to follow up with PCP, CENTER LEAD CONSULTANT and RTC as needed Cc: Millie Brush MD CONTACT INFORMATION:Vinh Kapadia M.D, MPH, FACC [facility] of [facility]ovascular Medicine [facility] [place] [facility] Desk [place] [address] Office Office Appointments: [phone] documented in this encounterMemorial Health [facility]08-17-2023 NotePap Smear Specimen AdequacyAugust 2022 11:59pmComment.Satisfactory for evaluation. Endocervical and/or squamous metaplasticcells (endocervical component)are present.[facility] INTER[facility]ACED A#[id number] Medical Specialty Hospital - AkronComment on above: Satisfactory for evaluation. Endocervical and/or [...] sure are scan is good. Please call [phone] to discuss results and any follow up. * Telephone Encounter - Nancy Cline [facility] [place] - 02/28/2022 9:33 AM EST CV PHONE Name of caller : Alfonso Relationship to patient : Self If not self Will need patient permission to release results or disclose health information with called documented in fyi. Patient identified by Name and Date of . ( Alfonso Verdugo, 1960). Yes Number to return call [phone] Reason for Call: Results: Results Calling office requesting result of MRI test, completed on 02-21-22. Please call patient back at above. Thank you calling [facility] [place]. You will receive a return call within 48hours ( or 2 business days if close to the weekend). If you feel that this is an urgent issue and needs immediate attention, it is recommended that you contact your primary care provider office or proceed to your nearest Urgent Care Center of Emergency Room ED for evaluation/treatment. Electronically signed by Nancy Cline [facility] [place] at 02/28/2022 9:34 AM EST documented in this encounterMem[facility]01-[facility]2023 History of Present illness Narrative* Leticia Alston, RT(R) - 02/21/2022 9:20 AM EST Radiology [...] 21, 2022 9:38 AM documented in this encounterMem[facility]09-20-2022 Miscellaneous Notes* Telephone Encounter - Leidy [...] Name and Date of . ( Alfonso Cuauhteomc Verdugo, 1960). Yes Number to return call [phone] Reason for Call : Prior Authorization : Prior Authorization Patient calling to seek Insurance Pre-Authorization number from staff providers office. Patient hasphysical hard copy of order and is attempting to schedule MRI/MRA Brain at [facility] in [facility] but states both the hospital and the insurance company [employer] request a pre-authorization number. Advised patient this would not be the usual process to seek through the doctor's office and provided patient with additional phone number and suggestion for possible solutions but patient would also prefer a call back as well at [phone]. documented in this encounterMemorial [facility]08-12-2022 NotePap Smear Specimen AdequacyAugust 2021 4:50pmComment.Satisfactory for evaluation. Endocervical and/or squamous metaplasticcells (endocervical component)are present.[facility]ED A#[id number]. Mary's Medical Center Work Phone: Comment on above:Satisfactory for evaluation. [...] 09, 2021 11:42 AM documented in this encounterMemorial [facility]06-21-2022 History of Present illness Narrative* Romero Pelletier MD - 08/09/2021 10:00 AM EDT Images from the original note were not included. [facility] Initial Visit Consultation is requested by: SELF PCP: Song Figueroa (Evelio) [address] [place] [address] [place] [address] CEREBROVASCULAR HISTORY Alfonso Verdugo is a 61 [...] Laid down, and saw an ENT in [place], and was given exercises. After 4 days, [...] have had a 'mini stroke' 03/10/2019 at [facility], after falling and hitting head [...] results found for: HBA1C IMAGING CT head [facility] CT head 03/19/2019 Patient Entered [...] Noncerebrovascular Concern: Yes Details: Traumatic SDH Modified [place] Score: Score: 0 NIH Stroke Scale: LOC: [...] which included preparing to see the patient, [id number] patient care, completing clinical documentation, obtaining and/or reviewing separately obtained history, performing a medically appropriate examination, counseling and educating the patient/family/caregiver and ordering medications, tests, or procedures SIGNATURE Romero Pelletier M.D. Staff, Cerebrovascular Center August 09, 2021 2:06 PM CC SELF Song Figueroa (Dilan) [address] [place] [address] documented in this encounterAdams County [facility] note Author Do Castro [facility] Note Date/Time August 04, 2024 7:16 am [facility] Medical Records Department [address] [place] [address] Pre-Anesthesia Evaluation 08/04/24 0710 MR#: [id number] Acct: [id number] Name: ALFONSO VERDUGO Rep #:[id number] : 1960 64 From: Do martins CRNA PCP: Dr. Millie Payton MD Status:REG SD Y Race: C Location: [place] [address] ASA Classification* ASA Classification ASA Classification: 2 [...] Procedure(s): COLONOSCOPY-OA Anesthesia History Anesthesia History - teacher advisor: Anesthesia History - teacher advisor Hx Hospitalization No 07/31/24 10:35 Any Problems [...] take am of surgery PONV PONV - teacher advisor: PONV - teacher advisor Female Yes 07/31/24 10:35 HX of Motion [...] 08/04/24 06:48 Respiratory Assessment Respiratory Assessment - teacher advisor: Respiratory Tract Infection Hx - teacher advisor Hx Respiratory Tract Infection No 07/31/24 10:35 STOP Sleep Apnea STOP Sleep Apnea - teacher advisor: STOP Sleep Apnea - teacher advisor Hx Hypertension No 07/31/24 10:35 Hx Sleep [...] Tobacco Use History Tobacco Use History - teacher advisor: Tobacco Use History - teacher advisor Tobacco Use Smoking Status Never smoker 07/31/24 10:35 Hx Tobacco Use No 07/31/24 10:35 Years Smoking Packs Smoked per Day Smoking Cessation Date was within the last 15 years Hx Smoking Cessation Date Hx Smoking Cessation Counseling Hematologic Medial History Hematologic Hx - teacher advisor: 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 Hx of Blood Transfusion No 07/31/24 10:35 [...] confused, unrespo /Reproduction History /Reproductive History - teacher advisor: /Reproductive Hx- teacher advisor Hx Now No 07/31/24 10:35 Gestational Age (in weeks): EDC: Hx Hx Para Hx Section SAB No 07/31/24 10:35 Active Medications Active Medications: Current Medications Generic Name Dose Route Start Last Admin Trade Name Freq PRN Reason Stop Dose Admin Lactated Ringer's 1,000 mls @ 30 mls/hr 08/04/24 06:45 08/04/24 06:52 IV 30 mls/hr .[id number] [id number] Administration PFS Medical History Wears glasses Wears contact lenses [...] 08/04/24 0716 <Electronically signed by Do jimenez DB2 SYSTEMS PROGRAMMER> Date _ Do Castro [employer] SYSTEMS PROGRAMMER Cosigner Signature: Date CC: ~ Signed [facility] Work Phone: Evaluation note* Diagnosis Transient diplopia- Primary Diplopia Transient cerebral ischemia, unspecified type documented in this encounter [facility] HospitalStoritzaluation note* Diagnosis Onset Date Resolution Status Depression with anxiety acut e Fecal incontinence acute HPV test positive acute Obesity acute Encounter for routine gynecological examination noneactive [facility] Work Phone: Storitzaluation note* Diagnosis Onset Date Resolution Status Abnormal Pap smear of cervix acute HPV test positive acute Encounter for routine gynecological examination noneactive [facility] Work Phone: Evaluation note* Diagnosis Onset Date Resolution Status Abnormal Pap smear of cervix acute HPV test positive acute Encounter for routine gynecological examination noneactive Abnormal Pap smear of cervix acute HPV test positive acute [facility] Work Phone: Evaluation note* Diagnosis Transient diplopia Diplopia Transient cerebral ischemia, unspecified type documented in this encounter [facility]lem[facility] RentersQation note* Diagnosis Abnormal ECG- Primary Nonspecific abnormal electrocardiogram (ECG) (EKG) Encounter for screening for cardiovascular disorders Screening for other and unspecified cardiovascular conditions documented in this encounter [facility] HospitalSimtrolation note* Diagnosis Abnormal ECG- Primary Nonspecific abnormal electrocardiogram (ECG) (EKG) Encounter for screening for cardiovascular disorders Screening for other and unspecified cardiovascular conditions Class 2 obesity due to excess calories without serious comorbidity with body mass index (BMI) of 35.0 to 35.9 in adult Mixed hyperlipidemia documented in this encounter [facility] HospitalEvaluation note* Diagnosis Onset Date Resolution Status Abnormal Pap smear of cervix acute HPV test positive acute [facility] Work Phone: History and physical note Author Maryellen Lopez [facility] Note Date/Time August 04, 2024 7:26 am [facility] Medical Records Department [address] [place] [address] History & Physical Exam 08/04/24 0720 MR#: [id number] Acct: [id number] Name: ALFONSO VERDUGO Rep #:[id number] : 1960 64 From: Maryellen Lopez MD PCP: Dr. Millie Payton MD Status:[facility] Location: [place] [address] HPI - General General Date of Service: [...] blood. Patient denies any chronic abdominal pain/nausea/vomiting/reflux. [facility] Medical History Wears glasses Wears contact [...] Rash Discharge Is Pt Admitted From a Prison, or a Snf: No After D/C, Where Do you Plan to Go: Return Home From the [facility] History Number of Risk Factors: 4 Vital [...] complete colonoscopy requiring barium enema. 08/04/24 07 <Electronically signed by Maryellen Lopez MD> Cosigner Signature (if applicable): CC: Dr. Millie Payton MD; Dr. Maryellen Lopez MD~ Signed [facility] Work Phone: Hospital Discharge instructions Additional Instructions Call Dr. Roberts office when you are discharged here for your appointment tomorrow. Return with worsening symptoms or concerns.[facility] Work Phone: Reason for referral (narrative)No reason for referral information availableWSt. Mary's Medical Center Work Phone: Summary Purpose Family History No Family History Records Found Relationship Condition Age at Onset Recorded Date/T bren grandmother Malignant neoplasm of breast Unknown grandfather Diabetes mellitus Unknown Advance Directives No Advanced Directives Records Found Advance Directive Response Recorded Date/ Time Advance Directives No January 5:11pm Living Will No September 17, 2019 12:46pm Power of Radiologic Technology Teacher No September 16 0 12:46pm Advance Directive Response Recorded Date/ Time Advance Directives No January 4:11pm Living Will No September 17, 2019 11:46am Power of Radiologic Technology Teacher No September 16 0 11:46am Advance Directive Response Recorded Date/ Time Advance Directives No March 2:30pm Do you have a Healthcare Power of Radiologic Technology Teacher? No July 31, 2024 10:35am Advance Directive Response Recorded Date/ Time Do you have a Healthcare Power of Radiologic Technology Teacher? No July 31, 2024 10:35am Do you have a Healthcare Power of Radiologic Technology Teacher? No August 13, 2024 12:45pm Advance Directives No March 2:30pm Advance Directive Response Recorded Date/ Time Do you have a Healthcare Power of Radiologic Technology Teacher? No July 31, 2024 10:35am Do you have a Healthcare Power of Radiologic Technology Teacher? No August 13, 2024 12:45pm Do you have a Healthcare Power of Radiologic Technology Teacher? No August 20, 2024 9:59pm Advance Directives No March 2:30pm Reason for Referral Specialty Diagnoses / Procedures Referred By Contac t Referred To Contact MR IMAGING Diagnoses Transient diplopia Transient cerebral ischemia, unspecified type Procedures MRA BRAIN WO IVCON MRA, HEAD W/O CONTRAST Romero Pelletier MD [address] [place] [address] Mr Imaging Referral ID Status Reason Start Date Expiration Date Visits Requested Visits Authorized [id number] Pending Review Auto-Generat ed Referral 08/09/2021 09/08/2022 1 1 Specialty Diagnoses / Procedures Referred By Contac t Referred To Contact MR IMAGING Diagnoses Transient diplopia Transient cerebral ischemia, unspecified type Procedures MRI BRAIN WO IVCON MRI BRAIN BRAIN STEM W/O CONTRAST MATERIAL Romero Pelletier MD [address] [place] [address] Mr Imaging Referral ID Status Reason Start Date Expiration Date Visits Requested Visits Authorized [id number] Pending Review Auto-Generat ed Referral 08/09/2021 09/08/2022 1 1 Specialty Diagnoses / Procedures Referred By Contac t Referred To Contact MR IMAGING Diagnoses Transient diplopia Transient cerebral ischemia, unspecified type Procedures MRI BRAIN WO IVCON MRI BRAIN BRAIN STEM W/O CONTRAST MATERIAL Romero Pelletier MD [address] [facility] [place] [address] [place] [address] Referral ID Status Reason Start Date Expiration Date V isits Requested Visits Authorized [id number] Closed Auto-Generate d Referral 11/07/2021 05/06/2022 1 1 Specialty Diagnoses / Procedures Referred By Contac t Referred To Contact Procedures CARDIOVASCULAR MEDICINE OP FOLLOW UP APPT ORDER Vinh Kapadia MD [address] [place] [address] Referral ID Status Reason Start Date Expiration Date Visits Requested Visits Authorized [id number] Ref Not Required PCP Requested Referral 12/26/2022 12/26/2023 1 1 Specialty Diagnoses / Procedures Referred By Jeremiah jones Referred To Contact [facility] [place] Diagnoses Abnormal ECG Encounter for screening for cardiovascular disorders Procedures ECHO ECHO TTHRC R-T 2D W/WOM-MODE COMPL SPEC&COLR D Vinh Kapadia MD [address] [place] [address] [address] Referral ID Status Reason Start Date Expiration Date Visits Requested Visits Authorized [id number] Pending Review Auto-Generat ed Referral 12/26/2022 12/26/2023 1 1 Chief Complaint and Reason for Visit Chief Complaint SCREENING 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) Reason for Visit Depression with anxi ety Fecal incontinence HPV test positive Obesity Encounter for routine gynecological examination Chief Complaint SCREENING 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) ABN MAMM Reason for Visit Depression with anxi ety Fecal incontinence HPV test positive Obesity Encounter for routine gynecological examination Chief Complaint 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) Reason for Visit Abnormal Pap smear o f cervix HPV test positive Encounter for routine gynecological examination Chief Complaint 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) SCREENING Colposcopy Body mass index [BMI] 37.0-37.9, [...] *copay $20 September 08, 2024 3:47 pm Reason for Visit Admit Date Depression with [...] Right sided abdominal pain September 01 11:04am Depression with anxiety September 08, 2024 3:47pm Goiter September 08, 2024 3:47 pm Obesity (BMI 30.0-34.9) September 08, 2024 3:47pm Other obesity September 08, 2024 3:47 pm S/P gastric surgery September 08, 2024 3:47 pm Additional Source Comments INFORMATION SOURCE (unrecogn ized section and content) DATE CREATED AUTHOR 10/14/2020 [facility] DATE CREATED AUTHOR AUTHOR'S ORGANIZ ATION 12/30/2023 [facility] DATE CREATED AUTHOR AUTHOR'S ORGANIZ ATION 01/23/2024 [facility] DATE CREATED AUTHOR AUTHOR'S ORGANIZ ATION 07/18/2024 [facility] DATE CREATED AUTHOR AUTHOR'S ORGANIZ ATION 09/16/2024 [facility] Source Comments (unrecognize d section and content) In the event this informatio n is protected by the Federal Confidentiality of Alcohol and Drug Abuse Patient Records regulations: The Federal rules restrict any use of the information to criminally investigate or prosecute any alcohol or drug abuse patient.[facility] HospitalIn the event this information is protected by the Federal Confidentiality of Alcohol and Drug Abuse Patient Records regulations: The Federal rules restrict any use of the information to criminally investigate or prosecute any alcohol or drug abuse patient.[facility] HospitalIn the event this information is protected by the Federal Confidentiality of Alcohol and Drug Abuse Patient Records regulations: The Federal rules restrict any use of the information to criminally investigate or prosecute any alcohol or drug abuse patient.[facility] HospitalIn the event this information is protected by the Federal Confidentiality of Alcohol and Drug Abuse Patient Records regulations: The Federal rules restrict any use of the information to criminally investigate or prosecute any alcohol or drug abuse patient.[facility] HospitalIn the event this information is protected by the Federal Confidentiality of Alcohol and Drug Abuse Patient Records regulations: The Federal rules restrict any use of the information to criminally investigate or prosecute any alcohol or drug abuse patient.[facility] HospitalIn the event this information is protected by the Federal Confidentiality of Alcohol and Drug Abuse Patient Records regulations: The Federal rules restrict any use of the information to criminally investigate or prosecute any alcohol or drug abuse patient.[facility] HospitalIn the event this information is protected by the Federal Confidentiality of Alcohol and Drug Abuse Patient Records regulations: The Federal rules restrict any use of the information to criminally investigate or prosecute any alcohol or drug abuse patient.[facility] HospitalIn the event this information is protected by the Federal Confidentiality of Alcohol and Drug Abuse Patient Records regulations: The Federal rules restrict any use of the information to criminally investigate or prosecute any alcohol or drug abuse patient.[facility] Reason for Visit (unrecogniz ed section and content) Reason Comments New Patient Evaluation Specialty Diagnoses / Procedures Referred By Contact Referred To Contact Neurology / CEREBROVASCULAR Diagnoses Brain bleed (HCC) 9fell hit brain bleed now eposides where left eye wanders Procedures OFFICE/OUTPATIENT NEW MODERATE MDM 45-59 MINUTES NEW NI MEDICAL Self Romero Pelletier MD [address] [place] [address] Referral ID Status Reason Start Date Expiration Date V isits Requested Visits Authorized [id number] Authorized 07/22/2021 07/22/2022 4 4 Reason Comments Insurance Authorization / Imaging Order Reason Comments Results MRI Specialty Diagnoses / Procedures Referred By Contac t Referred To Contact MR IMAGING Diagnoses Transient diplopia Transient cerebral ischemia, unspecified type Procedures MRI BRAIN WO IVCON MRI BRAIN BRAIN STEM W/O CONTRAST MATERIAL Romero Pelletier MD [address] [place] [id number] Mr Imaging [facility] Referral ID Status Reason Start Date Expiration Date V isits Requested Visits Authorized [id number] Closed Auto-Generate d Referral 11/07/2021 05/06/2022 1 1 Reason Comments Event ZIO PATCH Reason Comments Release Of Medical Records Reason Comments Orders Care Teams (unrecognized sec tion and content) Inside Sales Lead Relationship Specialty Start Date End Date Millie Payton MD [address] [place] [address] [place] [address] PCP - General Internal Medicine 08/09/21 Inside Sales Lead Relationship Specialty Start Date End Date Millie Payton MD [address] [place] [phone] PCP - General Internal Medicine 08/09/21 Team [...] MD Attending Provider, Referr ing Provider Active Inside Sales Lead Relationship Specialty Start Date End Date Millie Payton MD [address] [place] [address] PCP - General Internal Medicine 08/09/21 Inside Sales Lead Relationship Specialty Start Date End Date Millie Payton MD [address] [facility] [address] [place] [phone] PCP - General Internal Medicine 08/09/21 Vinh Kapadia MD [address] [place] [address] Primary Staff Physician Cardiology 12/26/22 Inside Sales Lead Relationship Specialty Start Date End Date Millie Payton MD [address] [facility] [address] [place] [phone] PCP - General Internal Medicine 08/09/21 Vinh Kapadia MD [address] [place] [address] Primary Staff Physician Cardiology 12/26/22 Inside Sales Lead Relationship Specialty Start Date End Date Millie Payton MD [address] [facility] [address] [place] [phone] PCP - General Internal Medicine 08/09/21 Vinh Kapadia MD [address] [place] [address] Primary Staff Physician Cardiology 12/26/22 Team Status: [...] 2024 End: August 20, 2024 Dr. Diego Mcdnoald MD Referring Provider Active Sta rt: August [...] 2024 End: September 08, 2024 Dr. Millie Payton MD Referring Provider Active Start: September 08, 2024 End: September 08, 2024 Dr. Rose Marie Brush MD Attending Provider Active Start: September 08, 2024 End: September 08, 2024 Team Status: Inactive Member Role/Relationship Status Dates Dr. Millie Payton MD Primary Care Provider Active Start: September 08, 2024 End: September 08, 2024 ARSALAN Guzmná Attending Provider Active S tart: September 08, 2024 End: September 08, 2024 ARSALAN Guzmán Referring Provider Active S tart: September 08, 2024 End: September 08, 2024 [...] BE BASED ON THE PRIMARY CLINICAL RECORDS. [facility] [employer] [facility]. provides no warranty or guarantee of the accuracy or completeness of information in this document.
== END | disposition home or self-care (01) ==
PROVIDERS: PCP Internal Medicine; Referring Provider Surgery; Visit Provider Surgery
DX: R10.9 Unspecified abdominal pain (principal)
CPT/HCPCS: 74177; Q9967

== ENCOUNTER → 2024-09-26 | Outpatient (CLI) | payer OTHER, SELFPAY ==
--- NOTE | 2024-09-26 08:57 | NM_ITS ---
PROCEDURE: HEPATOBILLIARY IMG W/PHARM INT 09/26/2024 REASON FOR EXAM: RIGHT SIDE PAIN TECHNIQUE: Intravenous Choletec with planar imaging of the abdomen. 1.88 mcg Kinevac intravenously approximately 60 minutes after the radiopharmaceutical with additional anterior imaging and a region of interest drawn around the gallbladder to calculate a time-activity curve. RADIOPHARMACEUTICAL: Mebrofenin DOSE 5.3mCi COMPARISON: Prior ultrasound. FINDINGS: There is good uptake of the radiopharmaceutical by the liver. Normal gallbladder visualization with the gallbladder identified by 60 minutes. Gallbladder Ejection Fraction: 8 % (Normal is >35%) NM/Hepatobilliary Img w/Pharm Int IMPRESSION: Abnormal gallbladder ejection fraction. Reading Location: [id number]
--- NOTE | 2024-09-26 08:57 | NM_ITS ---
PROCEDURE: HEPATOBILLIARY IMG W/PHARM INT 09/26/2024 REASON FOR EXAM: RIGHT SIDE PAIN TECHNIQUE: Intravenous Choletec with planar imaging of the abdomen. 1.88 mcg Kinevac intravenously approximately 60 minutes after the radiopharmaceutical with additional anterior imaging and a region of interest drawn around the gallbladder to calculate a time-activity curve. RADIOPHARMACEUTICAL: Mebrofenin DOSE 5.3mCi COMPARISON: Prior ultrasound. FINDINGS: There is good uptake of the radiopharmaceutical by the liver. Normal gallbladder visualization with the gallbladder identified by 60 minutes. Gallbladder Ejection Fraction: 8 % (Normal is >35%) NM/Hepatobilliary Img w/Pharm Int IMPRESSION: Abnormal gallbladder ejection fraction. Reading Location: [id number]
--- OUTSIDE RECORDS SUMMARY | 2024-09-26 09:36 | XMS RPT_ITS | CCD ---
Author Organization [facility]ini[facility] Care Team Providers Care Community Services Coordinator Name Role Phone Tata MA, Millie Primary Care Provider Dr. Millie Payton Primary Care Provider Tata, Dr. Vela Referring Provider [phone] Dr. Rose Marie Brush Attending Provider [phone] Millie Payton MD Primary Care Provider Tata MA, Millie Primary Care Provider Dr. Millie Paytno Primary Care Provider Dr. Millie Payton Referring Provider Dr. Rose Marie Brush Attending Provider Tata [...] MA, Dr. Cortez Emergency Provider Dr. Millie Paytno MD Primary Care Provider Dr. Millie Payton MD Referring Provider Dr. Rose Marie Brush MD Attending Provider Harry MA, Dr. Cortez Attending Provider Drkae SOLARIS ADMINISTRATOR-C, Naty Attending Provider Vidal SOLARIS ADMINISTRATOR-C, Naty Referring Provider [phone] Latouf, Butros Primary Care Unavailable Drake, Naty [...] sources) Penicillins; Translations: [PENICILLINS] Drug Intolerance 6 [facility] (10 sources) Sulfonamides (Antibiotic); Translations: [SULFA (SULFONAMIDE ANTIBIOTICS)] Drug Allergy 3 Rash, Itching [facility] (12 sources) Penicillins Propensity to adverse reactions 1 [facility] (12 sources) Sulfonamides (Antibiotic) Propensity to adverse reactions 1 [facility] (7 sources) Penicillins Drug Intolerance 6 [facility] (1 source) Penicillin Drug Allergy [facility] (1 source) Sulfonamides (Antibiotic) Drug allergy (disorder) [facility] (1 source) Penicillins Drug allergy (disorder) 5 [facility] (1 source) Sulfonamides (Antibiotic) Drug allergy (disorder) 5 [facility] Repository Medications Current Medications Medication Drug Class(es) [...] 29, 2014 12:00am March 31, 2019 8:47am [id number] 200 actuat albuterol 0.09 mg/actuat metered dose [...] Comment on above: Take 1 capsule by [facility] three times daily as needed. ciprofloxacin 500 [...] [address] 25 ug/g Normal 0-120 [facility] Comment on above: Result Comment: Conc entration Interpretation Follow-Up < 5 - 50 ug/g Normal None >50 -120 ug/g Borderline Re-evaluate in 4-6 weeks >120 ug/g Abnormal Repeat as clinically indicated Performed at: [facility] [id number] Mercantile Reporter: Mayela Ceja MD, Phone: [phone] Performed By: #### L 7000.0700 #### [facility] [address] [address] [place], [address] Calprotectin stoolOrdered By : Naty Drake on 09-08-2024 Calprotectin stool 25 ug/g 0-120 [facility] Comment on above: Concentration Interp retation Follow-Up< 5 - 50 ug/g Normal None>50 -120 ug/g Borderline Re-evaluate in 4-6 weeks >120 ug/g Abnormal Repeat as clinically indicatedPerformed at: - [facility] [id number] Director: Mayela Ceja MD, Phone: [phone] Border Guard Office Visit Reporton 09-08-2024 Border Guard Office Visit Report [facility] [address], [address] [place] [address] OFFICE VISIT Date of Service: 09/08/24 MR#: [id number] Acct: [id number] Name: ALFONSO VERDUGO Rep #: [id number] : 1960 Provider: Dr. 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 History 3 Elective abortions Hx Para 2 Spontaneous abortions 1 Hx # Term Pregnancies Ectopic pregnancies Hx # Pregnancies Multiple births # of living children Past Pregnancies Del. Date Name GA/Weeks Outcome Route Bth Weight Gen [facility] F[facility] Unknown Vasyl-1989 Unknown Yobany-1993 HPI [...] managment medications. she has a trip to [place] to help her son move coming up. [...] weight rega (more content not included)... Normal [facility] Gastroenterology Visit Repor ton 09-01-2024 Gastroenterology Visit Report [facility] Gastroenterology [address] [place] [address] OFFICE VISIT Date of Service: 09/01/24 MR#: [id number] Acct: [id number] Name: ALFONSO VERDUGO PASCALE Rep #: [id number] : 1960 Provider: ARSALAN verdin Age/Sex: 64/F Location: [facility] Status: Signed Intake Vital Signs 08/20/24 21:14 [...] cap PO Q24H 08/20/24 09/01/24 History mg capsule,ext.[id number] multphas (Qsymia) dicyclomine 10 mg capsule 10 [...] home: Yes additional social history: Remarried to [employer] 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 [employer] History Menstrual Ab spontaneous: 1 HPI HPI Chief Complaint: ED f/u- gallstones Details: ALFONSO VERDUGO, is a 64 F who presents to the office today for establishment with [facility] regarding right sided abdominal pain that radiates [...] with 1 polyp removed and called the electronic security specialist office and they state that she should not still be having pain from this. They advised her to go to the emergency department to be evaluated. Patient also notes that she is going on vacation next (more content not included)... Normal [facility] Abdomen/Pelvis W IV Cont ONL Yon 08-20-2024 Abdomen/Pelvis W IV Cont ONLY [facility] [address] [place], [place] [address] Abdomen/Pelvis W IV Cont ONLY MR#: [id number] Acct: [id number] Name: ALFONSO VERDUGO Rep #: [id number] : 1960 F 64 From: Blue Lombardo MD PCP: Dr. Millie Payton MD Status: REG ER Study: Abdomen/Pelvis W IV Cont ONLY Date of Exam: Exam# [id number] Ordering Dr: Diego Mcdonald MD PROCEDURE: ABDOMEN/PELVIS [...] secondary to infection. Advise correlation. Reading Location: [place] [address] CC: Dr. Millie Payton MD; Dr. Diego Mcdonald MD Fire Prevention Specialist: Signed Normal [facility] Absolute lymphocyte countOrd ered By: Diegoana Mcdonald on 08-20-2024 Lymphocytes Auto (Unsp spec) [#/Vol] 2.03 10*3/uL 0.83-4.51 [facility] Absolute neutrophil countOrd ered By: [facility] 08-20-2024 Neutrophils (Bld) [#/Vol] 5.6 10*3/uL 2.0-7.7 [facility] Anion gap in Serum or Plasma Ordered By: [facility] on 08-20-2024 Anion gap [Moles/Vol] 10 mmol/L 5-[address] [facility] Automated lymphocyte count a s percentage of total leukocytesOrdered By: [facility] Harry on 08-20-2024 Lymphocytes/100 WBC Auto (Unsp spec) 24.2 % 19-41 [facility] BUN/creatinine ratioOrdered By: [facility] on 08-20-2024 Urea nitrogen/Creatinine [Mass ratio] 29.0 mg/mg High 10- [facility] Basic Metabolic Profile (BMP )on 08-20-2024 BUN/CRE 29.0 RATIO High 12-08 [facility] Comment on above: Performed By: #### L 100.0100, L500.2500 #### [facility] [place], [address] Calcium [Mass/Vol] 8.9 mg/dL Normal 7.6-11.0 [facility] Comment on above: Performed By: #### L 100.0100, L500.2500 #### [facility] [address] [place], [address] Chloride [Moles/Vol] 106 mmol/L Normal 98-108 [facility] Comment on above: Performed By: #### L 100.0100, L500.2500 #### [facility] [address] [place], [address] CO2 [Moles/Vol] 23.6 mmol/L Normal 21.0-32.0 [facility] Comment on above: Performed By: #### L 100.0100, L500.2500 #### [facility] [address] [place], [address] Creatinine [Mass/Vol] 0.74 mg/dL Normal 0.70-1.[address] [facility] Comment on above: Performed By: #### L 100.0100, L500.2500 #### [facility] [address] [place], [address] GAP 10 Normal 5-15 [facility] Comment on above: Performed By: #### L 100.0100, L500.2500 #### [facility] [address] [place], [address] GFR/1.73 sq M.predicted among non-blacks MDRD (S/P/Bld) [Vol rate/Area] 92 mL/min/{1.73_m2} Normal >60 [facility] Comment on above: Result Comment: mL/m in/1.73m2 CKD-EPI Creatinine Equation (2020) Performed By: #### L 100.0100, L500.2500 #### [facility] [address] [place], [address] Glucose [Mass/Vol] 100 mg/dL High 70-99 [facility] Comment on above: Performed By: #### L 100.0100, L500.2500 #### [facility] [address] [place], [address] Potassium [Moles/Vol] 4.1 mmol/L Normal 3.3-5.[address] [facility] Comment on above: Performed By: #### L 100.0100, L500.2500 #### [facility] [address] [place], [address] Sodium [Moles/Vol] 140 mmol/L Normal 133-145 [facility] Comment on above: Performed By: #### L 100.0100, L500.2500 #### [facility] [address] [place], [address] Urea nitrogen [Mass/Vol] 21 mg/dL High 4-19 [facility] Comment on above: Performed By: #### L 100.0100, L500.2500 #### [facility] [address] [place], [address] Basophil percentageOrdered B y: Diego Mcdonald on 08-20-2024 Basophils/100 WBC (Bld) 0.6 % 0-1 [facility] CBC W/Diff, Automatedon 07-0 Absolute Lymph 2.03 X10 3/uL Normal 0.83-4.51 [facility] Comment on above: Performed By: #### L 100.0100, L500.2500 #### [facility] [address] [place], [address] Absolute Neut 5.6 X10 3/uL Normal 2.0-7.7 [facility] Comment on above: Performed By: #### L 100.0100, L500.2500 #### [facility] [address] [place], [address] Basophils/100 WBC (Bld) 0.6 % Normal 0-1 [facility] Comment on above: Performed By: #### L 100.0100, L500.2500 #### [facility] [address] [place], [address] Eosinophils/100 WBC (Bld) 1.4 % Normal 0-5 [facility] Comment on above: Performed By: #### L 100.0100, L500.2500 #### [facility] [address] [place], [address] Erythrocyte distribution width (RBC) [Ratio] 15.0 % High 11.6-14.6 [facility] Comment on above: Performed By: #### L 100.0100, L500.2500 #### [facility] [address] [place], [address] Hematocrit (Bld) [Volume fraction] 40.9 % Normal 37-47 [facility] Comment on above: Performed By: #### L 100.0100, L500.2500 #### [facility] [address] [place], [address] Hemoglobin (Bld) [Mass/Vol] 13.0 g/dL Normal 12.0-15.0 [facility] Comment on above: Performed By: #### L 100.0100, L500.2500 #### [facility] [address] [place], [address] IG% 0.200 Normal 0.0-0.9 [facility] Comment on above: Result Comment: IG% - Immature Granulocytes (promyelocytes, myelocytes and metamyelocytes) > 1% indicates that a LEFT SHIFT is Present. Performed By: #### L 100.0100, L500.2500 #### [facility] [address] [place], [address] Lymphocytes/100 WBC (Bld) 24.2 % Normal 19-41 [facility] Comment on above: Performed By: #### L 100.0100, L500.2500 #### [facility] [address] [place], [address] MCH (RBC) [Entitic mass] 27.8 pg Normal 27.0-32.0 [facility] Comment on above: Performed By: #### L 100.0100, L500.2500 #### [facility] [address] [place], [address] MCHC (RBC) [Mass/Vol] 31.8 g/dL Low 32-[address] [facility] Comment on above: Performed By: #### L 100.0100, L500.2500 #### [facility] [address] [place], [address] MCV (RBC) [Entitic vol] 87.4 fL Normal 81-99 [facility] Comment on above: Performed By: #### L 100.0100, L500.2500 #### [facility] [address] [place], [address] Monocytes/100 WBC (Bld) 7.2 % Normal 0-10 [facility] Comment on above: Performed By: #### L 100.0100, L500.2500 #### [facility] [address] [place], [address] Neutrophils/100 WBC (Bld) 66.4 % Normal 47-70 [facility] Comment on above: Performed By: #### L 100.0100, L500.2500 #### [facility] [address] [place], [address] Nucleated RBC (Bld) [#/Vol] 0 10*3/uL Normal 0-5 [facility] Comment on above: Performed By: #### L 100.0100, L500.2500 #### [facility] [address] [place], [address] Platelet mean volume (Bld) [Entitic vol] 10.2 fL Normal 6.2-12.0 [facility] Comment on above: Performed By: #### L 100.0100, L500.2500 #### [facility] [address] [place], [address] Platelets (Bld) [#/Vol] 330 10*3/uL Normal 150-450 [facility] Comment on above: Performed By: #### L 100.0100, L500.2500 #### [facility] [address] [place], [address] RBC (Bld) [#/Vol] 4.68 10*6/uL Normal 4.2-5.4 [facility] Comment on above: Performed By: #### L 100.0100, L500.2500 #### [facility] [address] [place], [address] RDW SD 48.1 fl High 35.1-43.9 [facility] Comment on above: Performed By: #### L 100.0100, L500.2500 #### [facility] [address] [place], [address] WBC (Bld) [#/Vol] 8.4 10*3/uL Normal 4.4-11.0 [facility] Comment on above: Performed By: #### L 100.0100, L500.2500 #### [facility] [address] [place], [address] Carbon dioxide, total [Moles /volume] in Central venous bloodOrdered By: Diegoana Mcdonald on 08-20-2024 CO2 [Moles/Vol] 23.6 mmol/L 21.0-32.0 [facility] Chloride assayOrdered By: Ug o Mcdonald on 08-20-2024 Chloride [Moles/Vol] 106 mmol/L 98-108 [facility] Emergency Department Summary on 08-20-2024 Emergency Department Summary [facility] Medical Records Department [address] [place] [address] Emergency Department Summary 08/20/24 MR#: [id number] Acct: [id number] Name: ALFONSO VERDUGO #: [id number] : 1960 64 From: Diego Mcdonald MD [...] PO Q24H 08/20/24 Unknown H istory mg capsule,ext.[id number] multphas (Qsymia) Allergy/AdvReac Type Severity Reaction Status [...] 97 Oxygen Delivery Method Room Air MDM [facility] Lab Data Attestation: I reviewed the patient's [...] % (Auto) 66.4 Lymph % (Auto) 24.2 [place] % (Auto) 7.2 Eos % (Auto) 1.4 [...] secondary to infection. Advise correlation. Reading Location: [facility] CT of the abdomen pelvis with IV [...] treat with ciprofloxacin and metronidazole. Will have medical assistant secretary schedule appointment to see Dr. Bess [...] 14 0RF (more content not included)... Normal [facility] Eosinophil percentageOrdered By: Diego Mcdonald on 08-20-2024 Eosinophils/100 WBC (Bld) 1.4 % 0-5 [facility] Erythrocyte distribution wid th ratioOrdered By: Diegoana Mcdonald on 08-20-2024 Erythrocyte distribution width (RBC) [Ratio] 15.0 % High 11.6-14.6 [facility] Erythrocyte distribution wid th standard deviationOrdered By: Diegoana Mcdonald on 08-20-2024 Erythrocyte distribution width (RBC) [Ratio] 48.1 fl High 35.1-43.9 [facility] Glomerular filtration rate ( GFR) estimation/1.73 sq m using serum, plasma, or whole bOrdered By: Diegoana Mcdonald on 08-20-2024 GFR/1.73 sq M.predicted among non-blacks MDRD (S/P/Bld) [Vol rate/Area] 92 mL/min/{1.73_m2} >60 [facility] Comment on above: mL/min/1.73m2 CKD-EP I Creatinine Equation (2020) Hematocrit Auto (Bld) [Volum e fraction]Ordered By: Diego Mcdonald on 08-20-2024 Hematocrit (Bld) [Volume fraction] 40.9 % 37-47 [facility] Hemoglobin measurementOrdere d By: Diegoana Mcdonald on 08-20-2024 Hemoglobin (Bld) [Mass/Vol] 13.0 g/dL 12.0-15.0 [facility] Immature granulocytes/100 WB C Auto (Bld)Ordered By: Diego Mcdonald on 08-20-2024 Immature granulocytes/100 WBC (Bld) 0.200 % 0.0-0.9 [facility] Comment on above: IG% - Immature Granu locytes (promyelocytes, myelocytes and metamyelocytes) > 1% indicates that a LEFT SHIFT is Present. MCV (mean corpuscular volume ) determinationOrdered By: Diego Mcdonald on 08-20-2024 MCV (RBC) [Entitic vol] 87.4 fL 81-99 [facility] Mean corpuscular hemoglobin (MCH) determinationOrdered By: Diegoana Mcdonald on 08-20-2024 MCH (RBC) [Entitic mass] 27.8 pg 27.0-32.0 [facility] Mean corpuscular hemoglobin concentration (MCHC) determinationOrdered By: Diegoana Mcdonald on 08-20-2024 MCHC (RBC) [Mass/Vol] 31.8 g/dL Low 32-[address] [facility] Mean platelet volume determi nationOrdered By: Diegoana Mcdonald on 08-20-2024 Platelet mean volume (Bld) [Entitic vol] 10.2 fL 6.2-12.0 [facility] Monocyte percentageOrdered B y: Diegoana Mcdonald on 08-20-2024 Monocytes/100 WBC (Bld) 7.2 % 0-10 [facility] Neutrophil percentageOrdered By: Diegoana Mcdonald on 08-20-2024 Neutrophils/100 WBC (Bld) 66.4 % 47-70 [facility] Nucleated red blood cell per centageOrdered By: Diegoana Mcdonald on 08-20-2024 Nucleated RBC/100 WBC (Bld) [Ratio] 0 % 0-5 [facility] Platelet countOrdered By: [facility] Mcdonald on 08-20-2024 Platelets (Bld) [#/Vol] 330 10*3/uL 150-450 [facility] Potassium measurement (mass/ volume)Ordered By: Diegoana Mcdonald on 08-20-2024 Potassium (Unsp spec) [Mass/Vol] 4.1 mmol/L 3.3-5.1 [facility] RBC Auto (Bld) [#/Vol]Ordere d By: Diegoana Mcdonald on 08-20-2024 RBC (Bld) [#/Vol] 4.68 10*6/uL 4.2-5.4 [facility] Serum creatinine measurement (mass/volume)Ordered By: Diegoana Mcdonald on 08-20-2024 Creatinine [Mass/Vol] 0.74 mg/dL 0.70-1.[address] [facility] Serum glucose measurement (m ass/volume)Ordered By: [facility] on 08-20-2024 Glucose [Mass/Vol] 100 mg/dL High 70-99 [facility] Serum or plasma calcium alisa urement (mass/volume)Ordered By: [facility] on 08-20-2024 Calcium [Mass/Vol] 8.9 mg/dL 7.6-11.0 [facility] Serum or plasma urea nitroge n measurement (mass/volume)Ordered By: [facility] on 08-20-2024 Urea nitrogen [Mass/Vol] 21 mg/dL High 4-19 [facility] Sodium levelOrdered By: [facility] on 08-20-2024 Sodium [Moles/Vol] 140 mmol/L 133-145 [facility] White blood cell (WBC) count Ordered By: [facility] on 08-20-2024 WBC (Bld) [#/Vol] 8.4 10*3/uL 4.4-11.0 [facility] Surgery Visit Reporton 08-14 Surgery Visit Report [facility] [address] [place] [address] OFFICE VISIT Date of Service: 08/14/24 MR#: [id number] Acct: [id number] Name: ALFONSO VERDUGO Rep #: [id number] : 1960 Provider: Dr. Jeet hurley MD Age/Sex: 64/F Location: [facility] Status: Signed Intake Vital Signs 08/13/24 [...] Const General: cooperative, healthy appearing and comfortable [facility] Head: normal to inspection Eyes General: appearance normal, both eyes and all related structures Neck Neck: normal visua (more content not included)... Normal [facility] Abdomen Limitedon 08-13-2024 Abdomen Limited [facility] [address] [place], [place] [address] Abdomen Limited MR#: [id number] Acct: [id number] Name: ALFONSO VERDUGO Rep #: [id number] : 1960 F 64 From: Landon Camara PCP: Dr. Millie Payton MD Status: REG ER Study: Abdomen Limited Date of Exam: 08/13/24 Exam# [id number] Ordering Dr: Mich Wheatley DO PROCEDURE: ABDOMEN [...] acute cholecystitis. Nonspecific echogenic pancreas. Reading Location: [facility] CC: Dr. Millie Payton MD; Dr. Mich Wheatley DO Fire Prevention Specialist: Signed Normal [facility] Absolute lymphocyte countOrd ered By: Mich Wheatley on 08-13-2024 Lymphocytes Auto (Unsp spec) [#/Vol] 1.87 10*3/uL 0.83-4.51 [facility] Absolute neutrophil countOrd ered By: Mich Wheatley on 08-13-2024 Neutrophils (Bld) [#/Vol] 3.6 10*3/uL 2.0-7.7 [facility] Anion gap in Serum or Plasma Ordered By: Mich Wheatley on 08-13-2024 Anion gap [Moles/Vol] 12 mmol/L 5-[address] [facility] Automated lymphocyte count a s percentage of total leukocytesOrdered By: Mich Wheatley on 08-13-2024 Lymphocytes/100 WBC Auto (Unsp spec) 31.3 % 19-41 [facility] BUN/creatinine ratioOrdered By: Mich Wheatley on 08-13-2024 Urea nitrogen/Creatinine [Mass ratio] 22.5 mg/mg High 10-20 [facility] Basophil percentageOrdered B y: Mich Wheatley on 08-13-2024 Basophils/100 WBC (Bld) 0.7 % 0-1 [facility] Bilirubin Test strip Ql (U)O rdered By: Mich Wheatley on 08-13-2024 Bilirubin Ql (U) Negative Negative [facility] Bilirubin, totalOrdered By: Mich Wheatley on 08-13-2024 Bilirubin [Mass/Vol] 0.33 mg/dL 0.00-1.30 [facility] CBC W/Diff, Automatedon 06-2 -2024 Absolute Lymph 1.87 X10 3/uL Normal 0.83-4.51 [facility] Comment on above: Performed By: #### L 501.2450, L500.4050, L100.0100 ####[facility] [address] [place], [address] Absolute Neut 3.6 X10 3/uL Normal 2.0-7.7 [facility] Comment on above: Performed By: #### L 501.2450, L500.4050, L100.0100 ####[facility] [address] [place], [address] Basophils/100 WBC (Bld) 0.7 % Normal 0-1 [facility] Comment on above: Performed By: #### L 501.2450, L500.4050, L100.0100 ####[facility] [address] [place], [address] Eosinophils/100 WBC (Bld) 2.2 % Normal 0-5 [facility] Comment on above: Performed By: #### L 501.2450, L500.4050, L100.0100 ####[facility] [address] [place], [address] Erythrocyte distribution width (RBC) [Ratio] 15.0 % High 11.6-14.6 [facility] Comment on above: Performed By: #### L 501.2450, L500.4050, L100.0100 ####[facility] [address] [place], [address] Hematocrit (Bld) [Volume fraction] 43.2 % Normal 37-47 [facility] Comment on above: Performed By: #### L 501.2450, L500.4050, L100.0100 ####[facility] [address] [place], [address] Hemoglobin (Bld) [Mass/Vol] 13.5 g/dL Normal 12.0-15.0 [facility] Comment on above: Performed By: #### L 501.2450, L500.4050, L100.0100 ####[facility] [address] [place], [address] IG% 0.300 Normal 0.0-0.9 [facility] Comment on above: Result Comment: IG% - Immature Granulocytes (promyelocytes, myelocytes and metamyelocytes) > 1% indicates that a LEFT SHIFT is Present. Performed By: #### L 501.2450, L500.4050, L100.0100 ####[facility] [address] [place], [address] Lymphocytes/100 WBC (Bld) 31.3 % Normal 19-41 [facility] Comment on above: Performed By: #### L 501.2450, L500.4050, L100.0100 ####[facility] [address] [place], [address] MCH (RBC) [Entitic mass] 27.7 pg Normal 27.0-32.0 [facility] Comment on above: Performed By: #### L 501.2450, L500.4050, L100.0100 ####[facility] [address] [place], [address] MCHC (RBC) [Mass/Vol] 31.3 g/dL Low 32-[address] [facility] Comment on above: Performed By: #### L 501.2450, L500.4050, L100.0100 ####[facility] [address] [place], [address] MCV (RBC) [Entitic vol] 88.5 fL Normal 81-99 [facility] Comment on above: Performed By: #### L 501.2450, L500.4050, L100.0100 ####[facility] [address] [place], [address] Monocytes/100 WBC (Bld) 6.0 % Normal 0-10 [facility] Comment on above: Performed By: #### L 501.2450, L500.4050, L100.0100 ####[facility] [address] [place], [address] Neutrophils/100 WBC (Bld) 59.5 % Normal 47-70 [facility] Comment on above: Performed By: #### L 501.2450, L500.4050, L100.0100 ####[facility] [address] [place], [address] Nucleated RBC (Bld) [#/Vol] 0 10*3/uL Normal 0-5 [facility] Comment on above: Performed By: #### L 501.2450, L500.4050, L100.0100 ####[facility] [address] [place], [address] Platelet mean volume (Bld) [Entitic vol] 10.6 fL Normal 6.2-12.0 [facility] Comment on above: Performed By: #### L 501.2450, L500.4050, L100.0100 ####[facility] [address] [place], [address] Platelets (Bld) [#/Vol] 306 10*3/uL Normal 150-450 [facility] Comment on above: Performed By: #### L 501.2450, L500.4050, L100.0100 ####[facility] [address] [place], [address] RBC (Bld) [#/Vol] 4.88 10*6/uL Normal 4.2-5.4 [facility] Comment on above: Performed By: #### L 501.2450, L500.4050, L100.0100 ####[facility] [address] [place], [address] RDW SD 48.9 fl High 35.1-43.9 [facility] Comment on above: Performed By: #### L 501.2450, L500.4050, L100.0100 ####[facility] [address] [place], [address] WBC (Bld) [#/Vol] 6.0 10*3/uL Normal 4.4-11.0 [facility] Comment on above: Performed By: #### L 501.2450, L500.4050, L100.0100 ####[facility] [address] [place], [address] Carbon dioxide, total [Moles /volume] in Central venous bloodOrdered By: Mich Wheatley on 08-13-2024 CO2 [Moles/Vol] 24.2 mmol/L 21.0-32.0 [facility] Chloride assayOrdered By: Syed Wheatley on 08-13-2024 Chloride [Moles/Vol] 104 mmol/L 98-108 [facility] Comprehensive Metabolic Prof ilon 08-13-2024 Albumin [Mass/Vol] 4.0 g/dL Normal 3.4-4.8 [facility] Comment on above: Performed By: #### L 501.2450, L500.4050, L100.0100 ####[facility] [address] [place], [address] Albumin/Globulin [Mass ratio] 1.3 {ratio} Normal 0.9-2.4 [facility] Comment on above: Performed By: #### L 501.2450, L500.4050, L100.0100 ####[facility] [address] [place], [address] ALK PHOS 113 U/L High 35-104 [facility] Comment on above: Performed By: #### L 501.2450, L500.4050, L100.0100 ####[facility] [address] [place], [address] ALT [Catalytic activity/Vol] 12 U/L Normal <=34 [facility] Comment on above: Performed By: #### L 501.2450, L500.4050, L100.0100 ####[facility] [address] [place], [address] AST [Catalytic activity/Vol] 18 U/L Normal <=31 [facility] Comment on above: Performed By: #### L 501.2450, L500.4050, L100.0100 ####[facility] [address] [place], [address] Bilirubin [Mass/Vol] 0.33 mg/dL Normal 0.00-1.30 [facility] Comment on above: Performed By: #### L 501.2450, L500.4050, L100.0100 ####[facility] [address] [place], [address] BUN/CRE 22.5 RATIO High 10-20 [facility] Comment on above: Performed By: #### L 501.2450, L500.4050, L100.0100 ####[facility] [address] [place], [address] Calcium [Mass/Vol] 8.9 mg/dL Normal 7.6-11.0 [facility] Comment on above: Performed By: #### L 501.2450, L500.4050, L100.0100 ####[facility] [address] [place], [address] Chloride [Moles/Vol] 104 mmol/L Normal 98-108 [facility] Comment on above: Performed By: #### L 501.2450, L500.4050, L100.0100 ####[facility] [address] [place], [address] CO2 [Moles/Vol] 24.2 mmol/L Normal 21.0-32.0 [facility] Comment on above: Performed By: #### L 501.2450, L500.4050, L100.0100 ####[facility] [address] [place], [address] Creatinine [Mass/Vol] 0.68 mg/dL Low 0.70-1.[address] [facility] Comment on above: Performed By: #### L 501.2450, L500.4050, L100.0100 ####[facility] [address] [place], [address] ECRCL 99.04 ml/min Normal 50-250 [facility] Comment on above: Performed By: #### L 501.2450, L500.4050, L100.0100 ####[facility] [address] [place], [address] GAP 12 Normal 5-15 [facility] Comment on above: Performed By: #### L 501.2450, L500.4050, L100.0100 ####[facility] [address] [place], [address] GFR/1.73 sq M.predicted among non-blacks MDRD (S/P/Bld) [Vol rate/Area] 98 mL/min/{1.73_m2} Normal >60 [facility] Comment on above: Result Comment: mL/m in/1.73m2 CKD-EPI Creatinine Equation (2020) Performed By: #### L 501.2450, L500.4050, L100.0100 ####[facility] [address] [place], [address] Globulin (S) [Mass/Vol] 3.1 g/dL Normal 2.2-4.2 [facility] Comment on above: Performed By: #### L 501.2450, L500.4050, L100.0100 ####[facility] [address] [place], [address] Glucose [Mass/Vol] 185 mg/dL High 70-99 [facility] Comment on above: Performed By: #### L 501.2450, L500.4050, L100.0100 ####[facility] [address] [place], [address] Potassium [Moles/Vol] 3.7 mmol/L Normal 3.3-5.[address] [facility] Comment on above: Performed By: #### L 501.2450, L500.4050, L100.0100 ####[facility] [address] [place], [address] Sodium [Moles/Vol] 140 mmol/L Normal 133-145 [facility] Comment on above: Performed By: #### L 501.2450, L500.4050, L100.0100 ####[facility] [address] [place], [address] T PROT 7.1 g/dL Normal 5.9-8.4 [facility] Comment on above: Performed By: #### L 501.2450, L500.4050, L100.0100 ####[facility] [address] [place], [address] Urea nitrogen [Mass/Vol] 15 mg/dL Normal 4-19 [facility] Comment on above: Performed By: #### L 501.2450, L500.4050, L100.0100 ####[facility] [address] [place], [address] Emergency Department Summary on 08-13-2024 Emergency Department Summary [facility] Medical Records Department [address] [place] [address] Emergency Department Summary 08/13/24 MR#: [id number] Acct: [id number] Name: ALFONSO VERDUGO Rep #: [id number] : 1960 64 From: Mich Wheatley DO [...] with 1 polyp removed and called the electronic security specialist office and they state that she should [...] does not get exacerbated with eating. PFSH [facility] Medical History Wears glasses Wears contact lenses [...] following commands knew that she was at [facility] the year is 2024 Skin: Warm, dry, [...] blood coun (more content not included)... Normal [facility] Eosinophil percentageOrdered By: Mich Wheatley on 08-13-2024 Eosinophils/100 WBC (Bld) 2.2 % 0-5 [facility] Erythrocyte distribution wid th ratioOrdered By: Mich Wheatley on 08-13-2024 Erythrocyte distribution width (RBC) [Ratio] 15.0 % High 11.6-14.6 [facility] Erythrocyte distribution wid th standard deviationOrdered By: Mich Wheatley on 08-13-2024 Erythrocyte distribution width (RBC) [Ratio] 48.9 fl High 35.1-43.9 [facility] Glomerular filtration rate ( GFR) estimation/1.73 sq m using serum, plasma, or whole bOrdered By: Mich Wheatley on 08-13-2024 GFR/1.73 sq M.predicted among non-blacks MDRD (S/P/Bld) [Vol rate/Area] 98 mL/min/{1.73_m2} >60 [facility] Comment on above: mL/min/1.73m2 CKD-EP I Creatinine Equation (2020) Hematocrit Auto (Bld) [Volum e fraction]Ordered By: Mich Wheatley on 08-13-2024 Hematocrit (Bld) [Volume fraction] 43.2 % 37-47 [facility] Hemoglobin measurementOrdere d By: Mich Wheatley on 08-13-2024 Hemoglobin (Bld) [Mass/Vol] 13.5 g/dL 12.0-15.0 [facility] Immature granulocytes/100 WB C Auto (Bld)Ordered By: Mich Wheatley on 08-13-2024 Immature granulocytes/100 WBC (Bld) 0.300 % 0.0-0.9 [facility] Comment on above: IG% - Immature Granu locytes (promyelocytes, myelocytes and metamyelocytes) > 1% indicates that a LEFT SHIFT is Present. Ketones Test strip Ql (U)Ord ered By: Mich Wheatley on 08-13-2024 Ketones Ql (U) Negative Negative [facility] Laboratory - Chemistry and C hemistry - challengeOrdered By: Mich Wheatley on 08-13-2024 AST [Catalytic activity/Vol] 18 U/L <32 [facility] Lipaseon 08-13-2024 Lipase [Catalytic activity/Vol] 37 U/L Normal 13-75 [facility] Comment on above: Result Comment: Darrion samuels note: LIPASE revised reference range effective 22. New Lipase methodology. Expected to produce lower values than the previous assay method. NEW Reference Range: 13 - 75 U/L Performed By: #### L 501.2450, L500.4050, L100.0100 ####[facility] [address] [place], [address] Lipase measurementOrdered By : Mich Wheatley on 08-13-2024 Lipase [Catalytic activity/Vol] 37 U/L 13-75 [facility] Comment on above: Please note:LIPASE r evised reference range effective 22. New Lipase methodology. Expected to produce lower values than the previous assay method. NEW Reference Range: 13 - 75 U/L MCV (mean corpuscular volume ) determinationOrdered By: Mich Wheatley on 08-13-2024 MCV (RBC) [Entitic vol] 88.5 fL 81-99 [facility] Mean corpuscular hemoglobin (MCH) determinationOrdered By: Mich Wheatley on 08-13-2024 MCH (RBC) [Entitic mass] 27.7 pg 27.0-32.0 [facility] Mean corpuscular hemoglobin concentration (MCHC) determinationOrdered By: Mich Wheatley on 08-13-2024 MCHC (RBC) [Mass/Vol] 31.3 g/dL Low 32-[address] [facility] Mean platelet volume determi nationOrdered By: Mich Wheatley on 08-13-2024 Platelet mean volume (Bld) [Entitic vol] 10.6 fL 6.2-12.0 [facility] Microscopic analysis of urin e for red blood cells (RBC)Ordered By: Mich Wheatley on 08-13-2024 Microscopic analysis of urine for red blood cells (RBC) 0 SEEN /hpf 0-5 [facility] Monocyte percentageOrdered B y: Mich Wheatley on 08-13-2024 Monocytes/100 WBC (Bld) 6.0 % 0-10 [facility] Mucus LM Ql (Urine sed)Order ed By: Mich Wheatley on 08-13-2024 Mucus Ql (Urine sed) 0 SEEN /hpf [facility] Neutrophil percentageOrdered By: Mich Wheatley on 08-13-2024 Neutrophils/100 WBC (Bld) 59.5 % 47-70 [facility] Nitrite Test strip Ql (U)Ord ered By: Mich Wheatley on 08-13-2024 Nitrite Ql (U) Negative Negative [facility] Nucleated red blood cell per centageOrdered By: Mich Wheatley on 08-13-2024 Nucleated RBC/100 WBC (Bld) [Ratio] 0 % 0-5 [facility] Platelet countOrdered By: Syed Wheatley on 08-13-2024 Platelets (Bld) [#/Vol] 306 10*3/uL 150-450 [facility] Potassium measurement (mass/ volume)Ordered By: Mich Wheatley on 08-13-2024 Potassium (Unsp spec) [Mass/Vol] 3.7 mmol/L 3.3-5.1 [facility] Protein Test strip Ql (U)Ord ered By: Mich Wheatley on 08-13-2024 Protein Ql (U) Negative Negative [facility] RBC Auto (Bld) [#/Vol]Ordere d By: Mich Wheatley on 08-13-2024 RBC (Bld) [#/Vol] 4.88 10*6/uL 4.2-5.4 [facility] Serum creatinine measurement (mass/volume)Ordered By: Mich Wheatley on 08-13-2024 Creatinine [Mass/Vol] 0.68 mg/dL Low 0.70-1.[address] [facility] Serum globulin measurementOr dered By: Mich Wheatley on 08-13-2024 Globulin (S) [Mass/Vol] 3.1 g/dL 2.2-4.2 [facility] Serum glucose measurement (m ass/volume)Ordered By: Mich Wheatley on 08-13-2024 Glucose [Mass/Vol] 185 mg/dL High 70-99 [facility] Serum or plasma alanine reeder otransferase (ALT) measurementOrdered By: Mich Wheatley on 08-13-2024 ALT [Catalytic activity/Vol] 12 U/L <35 [facility] Serum or plasma albumin alisa urement (mass/volume)Ordered By: Mich Wheatley on 08-13-2024 Albumin [Mass/Vol] 4.0 g/dL 3.4-4.8 [facility] Serum or plasma albumin/glob ulin mass ratioOrdered By: Mich Wheatley on 08-13-2024 Albumin/Globulin [Mass ratio] 1.3 {ratio} 0.9-2.4 [facility] Serum or plasma alkaline janes sphatase measurementOrdered By: Mich Wheatley on 08-13-2024 ALP [Catalytic activity/Vol] 113 U/L High 35-104 [facility] Serum or plasma calcium alisa urement (mass/volume)Ordered By: Mich Wheatley on 08-13-2024 Calcium [Mass/Vol] 8.9 mg/dL 7.6-11.0 [facility] Serum or plasma urea nitroge n measurement (mass/volume)Ordered By: Mich Wheatley on 08-13-2024 Urea nitrogen [Mass/Vol] 15 mg/dL 4-19 [facility] Sodium levelOrdered By: Cassandra Wheatley on 08-13-2024 Sodium [Moles/Vol] 140 mmol/L 133-145 [facility] Squamous epithelial cells de tection in urine sediment by light microscopyOrdered By: Mich Wheatley on 08-13-2024 Epithelial cells.squamous LM Ql (Urine sed) 0-5 SEEN /hpf 5-10 [facility] Total proteinOrdered By: Mena Wheatley on 08-13-2024 Protein [Mass/Vol] 7.1 g/dL 5.9-8.4 [facility] Urinalysis, Completeon 08-13 EPI,SQUAMOUS 0-5 SEEN Normal 5-10 [facility] Comment on above: Order Comment: CLEAN CATCH Performed By: #### L 400.0001 #### [facility] [address] [place], [address] WBC 0-5 SEEN Normal 0-5 [facility] Comment on above: Order Comment: CLEAN CATCH Performed By: #### L 400.0001 #### [facility] [address] [place], [address] BACTERIA 0 SEEN Normal None Seen [facility] Comment on above: Order Comment: CLEAN CATCH Performed By: #### L 400.0001 #### [facility] [address] [place], [address] Mucus Ql (Urine sed) 0 SEEN Normal [facility] Comment on above: Order Comment: CLEAN CATCH Performed By: #### L 400.0001 #### [facility] [address] [place], [address] RBC 0 SEEN Normal 0-5 [facility] Comment on above: Order Comment: CLEAN CATCH Performed By: #### L 400.0001 #### [facility] [address] [place], [place], [address] Urine clarityOrdered By: Mena Wheatley on 08-13-2024 Clarity (U) Sl. Cloudy Clear [facility] Urine color determinationOrd ered By: Mich Wheatley on 08-13-2024 Color (U) Yellow Yellow [facility] Urine glucose detectionOrder ed By: Mich Wheatley on 08-13-2024 Glucose Ql (U) Normal mg/dl Normal [facility] Urine leukocyte esterase det ection by dipstickOrdered By: Mich Wheatley on 08-13-2024 Leukocyte esterase Test strip Ql (U) 100 /ul High Negative [facility] Urine pHOrdered By: Mich banks on 08-13-2024 pH (U) 6.0 [pH] 5.0 - 8.0 [facility] Urine sediment bacteria coun t by microscopy (number/high power field)Ordered By: Mich Wheatley on 08-13-2024 Bacteria LM.HPF (Urine sed) [#/Area] 0 /[HPF] None Seen [facility] Urine specific gravity measu rementOrdered By: Mich Wheatley on 08-13-2024 Specific gravity (U) [Rel density] 1.010 1.002-1.030 [facility] Urine urobilinogen measureme ntOrdered By: Mich Wheatley on 08-13-2024 Urobilinogen Ql (U) Normal mg/dl Normal [facility] White blood cell (WBC) count Ordered By: Mich Wheatley on 08-13-2024 WBC (Bld) [#/Vol] 6.0 10*3/uL 4.4-11.0 [facility] White blood cell countOrdere d By: Mich Wheatley on 08-13-2024 White blood cell count 0-5 SEEN /hpf 0-5 [facility] Colonoscopy Reporton 025 Colonoscopy Report [facility] Medical Records Department [address] [place] [address] Colonoscopy Report MR#: [id number] Acct: [id number] Name: ALFONSO VERDUGO Rep #: [id number] : 1960 64 From: Maryellen Lopez MD PCP: Dr. Millie Payton MD Status:[facility] Patient Name: Alfonso Verdugo Procedure Date: 08/04/2024 [...] pathology results. Procedure Code(s): --- Professional --- 26896, PT, Colonoscopy, flexible; with removal of tumor(s), polyp(s), or other lesion(s) by snare technique Diagnosis Code(s): --- Professional --- Z86.010, Personal history of colonic polyps D12.4, Benign neoplasm of descending colon Z80.0, Family history of malignant neoplasm of digestive organs CPT copyright 2021 [employer]. All rights reserved. The codes documented in this report are preliminary and upon sponsorship manager review may be revised to meet current compliance requirements. MD Maryellen Ramires MD 08/04/2024 8:03:27 AM This report has been signed electronically. Number of Addenda: 0 Note Initiated On: 08/04/2024 7:27 AM 08/04/24 0803 Date Maryellen Mehta Signature: Date (if indicated) CC: Dr. Millie Payton MD; Dr. Maryellen Lopez MD Date Dictated: 08/04/24726 Date Transcribed: Fire Prevention Specialist: TR Signed [facility] MR/POSTOP.ANEon 08-04-2024 MR/POSTOP.[facility] Medical Records Department [address] [place] [address] Anesthesia Postop Eval I 08/04/24 0810 MR#: [id number] Acct: [id number] Name: ALFONSO VERDUGO PASCALE Rep #: [id number] : 1960 64 From: Juancarlos Wheatlye PCP: Dr. Millie Payton MD Status:REG GILMAR Y Race: C Location: [place] [address] Anesthesia: Postop Eval I Current Vital Signs [...] Date Juancarlos Montanez Signature: Date CC: Signed [facility] MR/RURVSZBZ0et 08-04-2024 MR/POSTOPAN2 [facility] Medical Records Department [address] [place] [address] Anesthesia Postop Eval II 08/04/24 1228 MR#: [id number] Acct: [id number] Name: ALFONSO VERDUGO PASCALE Rep #: [id number] : 1960 64 From: Kris Oviedo MD [...] MD Cosigner Signature: Date CC: Signed Normal [facility] Surgery Specimen Level Latisha 08-04-2024 Surgery Specimen Level IV Patient Age/Sex Location Account Attending Physician ALFONSO VERDUGO 64/F EN [id number] Dr. Maryellen Lopez MD Specimen: [id number] Received: 08/04/24 Status: CASS Glez Num: [id number] Spec Type: COLON BX Subm Dr: Dr. [...] totally submitted in one cassette. FLO/ 08/04/2024 CPT:73507 Patient Age/Sex Location Account Attending Physician ALFONSO VERDUGO 64/F EN [id number] Dr. Maryellen Lopez MD Signed (signature on file) Dr. Minerva Dean MD 08/12/24 0850 Normal [facility] Comment on above: Performed By: #### P SUIV #### [facility] [address] [place], [address] MR/PAT.Tali 07-31-2024 MR/PAT.HUBERT [facility] Medical Records Department [address] [place] [address] PAT - Anesthesia 07/31/24 1114 MR#: [id number] Acct: [id number] Name: ALFONSO VERDUGO Rep #: [id number] : 1960 64 From: Juan Georges MD PCP: Dr. 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 Hx Hospitalization No 07/31/24 10:35 Any Problems [...] take am of surgery PONV PONV - merchandise team manager: PONV - merchandise team manager Female Yes 07/31/24 10:35 HX of Motion [...] 05/30/24 11:34 Respiratory Assessment Respiratory Assessment - merchandise team manager: Respiratory Tract Infection Hx - merchandise team manager Hx Respiratory Tract Infection No 07/31/24 10:35 STOP Sleep Apnea STOP Sleep Apnea - merchandise team manager: STOP Sleep Apnea - merchandise team manager Hx Hypertension No 07/31/24 10:35 Hx Sleep [...] Tobacco Use History Tobacco Use History - merchandise team manager: Tobacco Use History - merchandise team manager Tobacco Use Smoking Status Never smoker 07/31/24 10:35 Hx Tobacco Use No 07/31/24 10:35 Years Smoking Packs Smoked per Day Smoking Cessation Date was within the last 15 years Hx Smoking Cessation Date Hx Smoking Cessation Counseling Hematologic Medial History Hematologic Hx - merchandise team manager: Hematologic Medical 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 Normal [facility] Border Guard Office Visit Reporton 05-30-2024 Border Guard Office Visit Report [facility] [address], [address] [place] [address] OFFICE VISIT Date of Service: 05/30/24 MR#: [id number] Acct: [id number] Name: ALFONSO VERDUGO Rep #: [id number] : 1960 Provider: Dr. 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 History 3 Elective abortions Hx [...] comfortable and no acute distress Orientation: alert HENIN Head: normal to inspection and normocephalic Eyes [...] or consult (more content not included)... Normal [facility] Office Visit Reporton 2024 Office Visit Report [facility] [address] [place] [address] OFFICE VISIT Date of Service: 04/30/24 MR#: [id number] Acct: [id number] Patient: ALFONSO VERDUGO Rep #: [id number] : 1960 Provider: Dr. 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 Is patient in pain?: No Allergies Penicillins Adverse Reaction (Verified 04/30/24 08:34) Rash Sulfa (Sulfonamide Antibiotics) Adverse Reaction (Verified 04/30/24 08:34) Rash Medications ???Medication ???Instructions ???Recorded ???Confirmed ???Type levothyroxine 88 mcg tablet 88 mcg PO DAILY 10/11/23 04/30/24 History phentermine 15 mg-topiramate ER 92 1 cap PO Q24H #30 caps 03/05/24 04/30/24 Rx mg capsule,ext.xvbblir96vu multphas (Qsymia) venlafaxine 75 mg capsule,extended 75 [...] Montanez Signature: Date (if applicable) CC: Normal [facility] Office Visit Reporton 2024 Office Visit Report [facility] [address] [place] [address] OFFICE VISIT Date of Service: 04/08/24 MR#: [id number] Acct: [id number] Patient: ALFONSO VERDUGO Rep #: [id number] : 1960 Provider: ARSALAN Mclean Age/Sex: 63/F Location: [facility] Status: Signed Intake Vital Signs 03/05/24 09:25 04/03/24 13:30 04/08/24 09:36 Height 5 ft 6 in 5 ft 6 in 5 ft 6 in Weight: 210 lb 4 oz BMI 33.9 BP 133/84 H Pulse 67 Pulse Source Monitor Intake Visit Reasons: 1 M weigh in med check Chief Complaint: BP/HR/Weight Check 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 She is scheduling 2 NVs and then [...] Montanez Signature: Date (if applicable) CC: Normal [facility] [employer] Office Visit Reporton 03-05-2024 [facility] Office Visit Report [facility] [address], [address] [place] [address] OFFICE VISIT Date of Service: 03/05/24 MR#: [id number] Acct: [id number] Name: ALFONSO VERDUGO Rep #: [id number] : 1960 Provider: ARSALAN Mclean Age/Sex: 63/F Location: [facility] Status: Signed Intake Vital Signs 01/23/24 10:12 03/05/24 09:19 03/05/24 09:25 Height 5 ft 6 in 5 ft 6 in 5 ft 6 in Weight: 207 lb 6 oz BMI 33.5 BP 115/75 Pulse 78 Intake Visit Reasons: Weight management 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, 40-50 net carb nutritional plan. Using Lose it desmond. Has a goal to lose another 25 in the next 6 months. Incorporate more vegetables; lean meats; protein. Medication plan: Qsymia-continue; continue current dosing; tolerati (more content not included)... Normal [facility] Office Visit Reporton 01-23-2024 [facility] Office Visit Report [facility] [address] [place] [address], [address] [place] [address] OFFICE VISIT Date of Service: 01/23/24 MR#: [id number] Acct: [id number] Name: ALFONSO VERDUGO Rep #: [id number] : 1960 Provider: ARSALAN Mclean Age/Sex: 63/F Location: [facility] Status: Signed Intake Vital Signs 10/11/23 08:49 12/11/23 13:37 01/23/24 10:08 01/23/24 10:12 Height 5 ft 6 in 5 ft 6 in 5 ft 6 in 5 ft 6 in Weight: 207 lb BMI 33.4 BP 137/84 H Pulse 92 Intake Visit Reasons: 3 M WM Chief Complaint: 3 m f/u 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 0220-1211, 40-50 net carb nutritional plan. Using Lose it desmond. Medication plan: Qsymia; continue current dosing; tolerating well with no side effects. Discussed once she reaches her goals potentially titrating down. control- postmenopausal. Behavior intervention: recommend daily journal of food intake with electronic me (more content not included)... Normal [facility] 25(OH)D3 [facility] 2023 25-hydroxyvitamin D3 [Mass/Vol] 21.8 ng/mL Low 31.0-80.0 [facility] Comment on above: Order Comment: Specbeverly ahn Type: BLOOD SPECIMEN Ordering Facility: [facility] Address: [address] [place] [address] [address], [place] [address] Result Comment: Clas sification of 25 [place] Vitamin D status: Deficiency/Insufficiency: < or = 30 ng/ml. Sufficiency/Optimal Levels: 31-80 ng/mL Toxicity: > 100 ng/mL. Test performed by chemiluminescent immunoassay. Performed By: #### 1 989-3 #### [facility] CLIA [id number] [address] [place] [address] [place] CBC W Auto Differential pane l (Bld)on 12-28-2023 Basophils (Bld) [#/Vol] 0.04 10*3/uL Normal <0.11 [facility] Comment on above: Order Comment: Saskia ahn Type: BLOOD SPECIMEN Ordering Facility: [facility] Address: [address] [place] [address] [address] [facility], [place] [address] Performed By: #### 5 7021-8 #### [facility] CLIA [id number] [address] [place] [address] [place] Basophils/100 WBC (Bld) 0.8 % Normal [facility] Comment on above: Order Comment: Speci men Type: BLOOD SPECIMEN Ordering Facility: [facility] Address: [address] [place] [address] Performed By: #### 5 7021-8 #### [facility] CLIA [id number] [address] [place] [address] [place] Differential cell count method Nom (Bld) Auto Normal [facility] Comment on above: Order Comment: Speci men Type: BLOOD SPECIMEN Ordering Facility: [facility] Address: [address] [place] [address] Performed By: #### 5 7021-8 #### [facility] CLIA [id number] [address] [place] [address] [place] Eosinophils (Bld) [#/Vol] 0.17 10*3/uL Normal <0.46 [facility] Comment on above: Order Comment: Speci men Type: BLOOD SPECIMEN Ordering Facility: [facility] Address: [address] [place] [address] Performed By: #### 5 7021-8 #### [facility] CLIA [id number] [address] [place] [address] [place] Eosinophils/100 WBC (Bld) 3.5 % Normal [facility] Comment on above: Order Comment: Speci men Type: BLOOD SPECIMEN Ordering Facility: [facility] Address: [address] [place] [address] Performed By: #### 5 7021-8 #### [facility] CLIA [id number] [address] [place] [address] [place] Erythrocyte distribution width (RBC) [Ratio] 15.0 % Normal 11.5-15.0 [facility] Comment on above: Order Comment: Speci men Type: BLOOD SPECIMEN Ordering Facility: [facility] Address: [address] [place] [address] Performed By: #### 5 7021-8 #### [facility] CLIA [id number] [address] [place] [address] [place] Hematocrit (Bld) [Volume fraction] 40.4 % Normal 36.0-46.0 [facility] Comment on above: Order Comment: Speci men Type: BLOOD SPECIMEN Ordering Facility: [facility] Address: [address] [place] [address] Performed By: #### 5 7021-8 #### [facility] CLIA [id number] [address] [place] [address] [place] Hemoglobin (Bld) [Mass/Vol] 12.8 g/dL Normal 11.5-15.5 [facility] Comment on above: Order Comment: Speci men Type: BLOOD SPECIMEN Ordering Facility: [facility] Address: [address] [place] [address] Performed By: #### 5 7021-8 #### [facility] CLIA [id number] [address] [place] [address] [place] Immature granulocytes (Bld) [#/Vol] 10*3/uL Normal <0.10 [facility] Comment on above: Order Comment: Speci men Type: BLOOD SPECIMEN Ordering Facility: [facility] Address: [address] [place] [address] Performed By: #### 5 7021-8 #### [facility] CLIA [id number] [address] [place] [address] [place] Immature granulocytes/100 WBC (Bld) 0.2 % Normal [facility] Comment on above: Order Comment: Speci men Type: BLOOD SPECIMEN Ordering Facility: [facility] Address: [address] [place] [address] Performed By: #### 5 7021-8 #### [facility] CLIA [id number] [address] [place] [address] [place] Lymphocytes (Bld) [#/Vol] 1.82 10*3/uL Normal 1.00-4.00 [facility] Comment on above: Order Comment: Speci men Type: BLOOD SPECIMEN Ordering Facility: [facility] Address: [address] [place] [address] Performed By: #### 5 7021-8 #### [facility] CLIA [id number] [address] [place] [address] [place] Lymphocytes/100 WBC (Bld) 37.4 % Normal [facility] Comment on above: Order Comment: Speci men Type: BLOOD SPECIMEN Ordering Facility: [facility] Address: [address] [place] [address] Performed By: #### 5 7021-8 #### [facility] CLIA [id number] [address] [place] [address] [place] MCH (RBC) [Entitic mass] 27.7 pg Normal 26.0-34.0 [facility] Comment on above: Order Comment: Speci men Type: BLOOD SPECIMEN Ordering Facility: [facility] Address: [address] [place] [address] Performed By: #### 5 7021-8 #### [facility] CLIA [id number] [address] [place] [address] [place] MCHC (RBC) [Mass/Vol] 31.7 g/dL Normal 30.5-36.0 [facility] Comment on above: Order Comment: Speci men Type: BLOOD SPECIMEN Ordering Facility: [facility] Address: [address] [place] [address] Performed By: #### 5 7021-8 #### [facility] CLIA [id number] [address] [place] [address] [place] MCV (RBC) [Entitic vol] 87.4 fL Normal 80.0-100.0 [facility] Comment on above: Order Comment: Speci men Type: BLOOD SPECIMEN Ordering Facility: [facility] Address: [address] [place], [place] [address] Performed By: #### 5 7021-8 #### [facility] CLIA [id number] [address] [place] [address] [place] Monocytes (Bld) [#/Vol] 0.31 10*3/uL Normal <0.87 [facility] Comment on above: Order Comment: Speci men Type: BLOOD SPECIMEN Ordering Facility: [facility] Address: [address] [place] [address] Performed By: #### 5 7021-8 #### [facility] CLIA [id number] [address] [place] [address] [place] Monocytes/100 WBC (Bld) 6.4 % Normal [facility] Comment on above: Order Comment: Speci men Type: BLOOD SPECIMEN Ordering Facility: [facility] Address: [address] [place] [address] Performed By: #### 5 7021-8 #### [facility] CLIA [id number] [address] [place] [address] [place] Neutrophils (Bld) [#/Vol] 2.51 10*3/uL Normal 1.45-7.50 [facility] Comment on above: Order Comment: Speci men Type: BLOOD SPECIMEN Ordering Facility: [facility] Address: [address] [place] [address] Performed By: #### 5 7021-8 #### [facility] CLIA [id number] [address] [place] [address] [place] Neutrophils/100 WBC (Bld) 51.7 % Normal [facility] Comment on above: Order Comment: Speci men Type: BLOOD SPECIMEN Ordering Facility: [facility] Address: [address] [place] [address] Performed By: #### 5 7021-8 #### [facility] CLIA [id number] [address] [place] [address] [place] Nucleated RBC (Bld) [#/Vol] 10*3/uL Normal <0.01 [facility] Comment on above: Order Comment: Speci men Type: BLOOD SPECIMEN Ordering Facility: [facility] Address: [address] [place] [address] Performed By: #### 5 7021-8 #### [facility] CLIA [id number] [address] [place] [address] [place] Nucleated RBC/100 WBC (Bld) [Ratio] 0.0 /100 WBC Normal [facility] Comment on above: Order Comment: Speci men Type: BLOOD SPECIMEN Ordering Facility: [facility] Address: [address] [place] [address] Performed By: #### 5 7021-8 #### [facility] CLIA [id number] [address] [place] [address] [place] Platelet mean volume (Bld) [Entitic vol] 10.4 fL Normal 9.0-12.7 [facility] Comment on above: Order Comment: Speci men Type: BLOOD SPECIMEN Ordering Facility: [facility] Address: [address] [place] [address] Performed By: #### 5 7021-8 #### [facility] CLIA [id number] [address] [place] [address] [place] Platelets (Bld) [#/Vol] 310 10*3/uL Normal 150-400 [facility] Comment on above: Order Comment: Speci men Type: BLOOD SPECIMEN Ordering Facility: [facility] Address: [address] [place] [address] Performed By: #### 5 7021-8 #### [facility] CLIA [id number] [address] [place] [address] [place] RBC (Bld) [#/Vol] 4.62 10*6/uL Normal 3.90-5.20 [facility] Comment on above: Order Comment: Speci men Type: BLOOD SPECIMEN Ordering Facility: [facility] Address: [address] [place] [address] Performed By: #### 5 7021-8 #### [facility] CLIA [id number] [address] [place] [address] [place] WBC (Bld) [#/Vol] 4.86 10*3/uL Normal 3.70-11.00 [facility] Comment on above: Order Comment: Speci men Type: BLOOD SPECIMEN Ordering Facility: [facility] Address: [address] [place] [address] Performed By: #### 5 7021-8 #### [facility] CLIA [id number] [address] [place] [address] [place] Comprehensive metabolic 2000 panelon 12-28-2023 Albumin [Mass/Vol] 4.2 g/dL Normal 3.9-4.9 [facility] Comment on above: Order Comment: Speci men Type: BLOOD SPECIMEN Ordering Facility: [facility] Address: [address] [place] [address] Performed By: #### 2 4323-8 #### [facility] CLIA [id number] [address] [place] [address] [place] ALP [Catalytic activity/Vol] 123 U/L Normal 34-123 [facility] Comment on above: Order Comment: Speci men Type: BLOOD SPECIMEN Ordering Facility: [facility] Address: [address] [place] [address] Performed By: #### 2 4323-8 #### [facility] CLIA [id number] [address] [place] [address] [place] ALT [Catalytic activity/Vol] 10 U/L Normal 7-38 [facility] Comment on above: Order Comment: Speci men Type: BLOOD SPECIMEN Ordering Facility: [facility] Address: [address] [place] [address] Performed By: #### 2 4323-8 #### [facility] CLIA [id number] [address] [place] [address] [place] Anion gap [Moles/Vol] 12 mmol/L Normal 8-15 [facility] Comment on above: Order Comment: Speci men Type: BLOOD SPECIMEN Ordering Facility: [facility] Address: [address] [place] [address] Performed By: #### 2 4323-8 #### [facility] CLIA [id number] [address] [place] [address] [place] AST [Catalytic activity/Vol] 11 U/L Low 13-35 [facility] Comment on above: Order Comment: Speci men Type: BLOOD SPECIMEN Ordering Facility: [facility] Address: [address] [place] [address] Performed By: #### 2 4323-8 #### [facility] CLIA [id number] [address] [place] [address] [place] Bilirubin [Mass/Vol] 0.5 mg/dL Normal 0.2-1.[address] [facility] Comment on above: Order Comment: Speci men Type: BLOOD SPECIMEN Ordering Facility: [facility] Address: [address] [place] [address] Performed By: #### 2 4323-8 #### [facility] CLIA [id number] [address] [place] [address] [place] Calcium [Mass/Vol] 9.2 mg/dL Normal 8.5-10.2 [facility] Comment on above: Order Comment: Speci men Type: BLOOD SPECIMEN Ordering Facility: [facility] Address: [address] [place] [address] Performed By: #### 2 4323-8 #### [facility] CLIA [id number] [address] [place] [address] [place] Chloride [Moles/Vol] 106 mmol/L Normal 98-[address] [facility] Comment on above: Order Comment: Saskia ahn Type: BLOOD SPECIMEN Ordering Facility: [facility] Address: [address] [place] [address] Performed By: #### 2 4323-8 #### [facility] CLIA [id number] [address] [place] [address] [place] CO2 [Moles/Vol] 23 mmol/L Normal 22-30 [facility] Comment on above: Order Comment: Speci men Type: BLOOD SPECIMEN Ordering Facility: [facility] Address: [address] [place] [address] Performed By: #### 2 4323-8 #### [facility] CLIA [id number] [address] [place] [address] [place] Creatinine [Mass/Vol] 0.70 mg/dL Normal 0.58-0.96 [facility] Comment on above: Order Comment: Saskia ahn Type: BLOOD SPECIMEN Ordering Facility: [facility] Address: [address] [place] [address] Performed By: #### 2 4323-8 #### [facility] CLIA [id number] [address] [place] [address] [facility] Creatinine and Glomerular filtration rate.predicted panel (S/P/Bld) 99 mL/min/1.73m??? Normal >=60 [facility] Comment on above: Order Comment: Saskia men Type: BLOOD SPECIMEN Ordering Facility: [facility] Address: [address] [place] [address] Result Comment: Lakia mated Glomerular Filtration Rate [...] GFR. Performed By: #### 2 4323-8 #### [facility] CLIA [id number] [address] [place] [address] [place] Glucose [Mass/Vol] 97 mg/dL Normal 74-99 [facility] Comment on above: Order Comment: Saskia ahn Type: BLOOD SPECIMEN Ordering Facility: [facility] Address: [address] [place] [address] Result Comment: The [place] Diabetes Association (ADA) provides guidance for cutoff [...] Standards of Medical Care in Diabetes 2016, [place] [employer] Association. Diabetes Care. 2016.39(Suppl 1). Performed By: #### 2 4323-8 #### [facility] CLIA [id number] [address] [place] [address] [place] Potassium [Moles/Vol] 3.9 mmol/L Normal 3.7-5.1 [facility] Comment on above: Order Comment: Saskia ahn Type: BLOOD SPECIMEN Ordering Facility: [facility] Address: [address] [place] [address] Performed By: #### 2 4323-8 #### [facility] CLIA [id number] [address] [place] [address] [place] Protein [Mass/Vol] 7.0 g/dL Normal 6.3-8.0 [facility] Comment on above: Order Comment: Saskia ahn Type: BLOOD SPECIMEN Ordering Facility: [facility] Address: [address] [place] [address] Performed By: #### 2 4323-8 #### [facility] CLIA [id number] [address] [place] [address] [place] Sodium [Moles/Vol] 141 mmol/L Normal 136-144 [facility] Comment on above: Order Comment: Speci men Type: BLOOD SPECIMEN Ordering Facility: [facility] Address: [address] [place] [address] Performed By: #### 2 4323-8 #### [facility] CLIA [id number] [address] [place] [address] [place] Urea nitrogen [Mass/Vol] 16 mg/dL Normal 7-21 [facility] Comment on above: Order Comment: Speci men Type: BLOOD SPECIMEN Ordering Facility: [facility] Address: [address] [place] [address] Performed By: #### 2 4323-8 #### [facility] CLIA [id number] [address] [place] [address] [place] Lipid 1996 panelon 4 Cholesterol [Mass/Vol] 206 mg/dL High <200 [facility] Comment on above: Order Comment: Speci men Type: BLOOD SPECIMEN Ordering Facility: [facility] Address: [address] [place] [address] Result Comment: <200 mg/dL, Desirable 200-239 mg/dL, Borderline high >239 mg/dL, High Performed By: #### 2 4331-1 #### [facility] CLIA [id number] [address] [address] [place] [facility] CLIA [id number] [address] [place] [address] [place] #### 3016-3 #### [facility] CLIA [id number] [address] [address] [place] Cholesterol in HDL [Mass/Vol] 57 mg/dL Normal >39 [facility] Comment on above: Order Comment: Angelitoi men Type: BLOOD SPECIMEN Ordering Facility: [facility] Address: [address] [place] [address], [place] [address] Result Comment: 40-5 9 mg/dL, Acceptable >59 mg/dL, High: Negative risk factor for coronary heart disease <40 mg/dL, Low: Positive risk factor for coronary heart disease Performed By: #### 2 4331-1 #### [facility] CLIA [id number] [address] [facility] [address] [address] [place] [facility] CLIA [id number] [address] [place] [address] [place] #### 3016-3 #### [facility] CLIA [id number] [address] [facility] [place] [id number] [place] Cholesterol in LDL [Mass/Vol] 135 mg/dL High <100 [facility] Comment on above: Order Comment: Angelitoi men Type: BLOOD SPECIMEN Ordering Facility: [facility] Address: [address] [place] [address], [place] [address] Result Comment: <100 mg/dL, Optimal 100-129 mg/dL, Near optimal/above optimal 130-159 mg/dL, Borderline high 160-189 mg/dL, High >189 mg/dL, Very high Secondary prevention optimal LDL Cholesterol levels are recommended to be < 70 mg/dL Performed By: #### 2 4331-1 #### [facility] CLIA [id number] [address] [facility] [address] [address] [place] [facility] CLIA [id number] [address] [place] [address] [place] #### 3016-3 #### [facility] CLIA [id number] [address] [facility] [address] [address] [place] Cholesterol in LDL/Cholesterol in HDL [Mass ratio] 2.37 {ratio} Normal <2.54 [facility] Comment on above: Order Comment: Speci men Type: BLOOD SPECIMEN Ordering Facility: [facility] Address: [address] [place] [address] Result Comment: Dany patel: 1. National Cholesterol Education Program ATP III Guideline At-A-Glance Quick Desk Reference: National Heart, Lung, and Blood [place]. National Institutes of Health. 2001: NIH Publication No. 01-3305. 2. An International Atherosclerosis Society position paper: global recommendations for the management of dyslipidemia: executive summary, Atherosclerosis. 2014: 232(2):410-413. Performed By: #### 2 4331-1 #### [facility] CLIA [id number] [address] [place] [address] [place] [facility] CLIA [id number] [address] [place] [address] [place] #### 3016-3 #### [facility] CLIA [id number] [address] [place] [address] [place] Cholesterol in VLDL [Mass/Vol] 14 mg/dL Normal <30 [facility] Comment on above: Order Comment: Angelitoi men Type: BLOOD SPECIMEN Ordering Facility: [facility] Address: [address] [place] [address] Performed By: #### 2 4331-1 #### [facility] CLIA [id number] [address] [place] [address] [place] [facility] CLIA [id number] [address] [place] [address] [place] #### 3016-3 #### [facility] CLIA [id number] [address] [place] [address] [place] Cholesterol non HDL [Mass/Vol] 149 mg/dL High <130 [facility] Comment on above: Order Comment: Speci men Type: BLOOD SPECIMEN Ordering Facility: [facility] Address: [address] [place] [address] Result Comment: <130 mg/dL, Optimal 130-159 mg/dL, Near optimal/above optimal 160-189 mg/dL, Borderline high 190-219 mg/dL, High >219 mg/dL, Very high Secondary prevention optimal non HDL Cholesterol levels are recommended to be <100 mg/dL Performed By: #### 2 4331-1 #### [facility] CLIA [id number] [address] [place] [address] [place] [facility] CLIA [id number] [address] [place] [address] [place] #### 3016-3 #### [facility] CLIA [id number] [address] [place] [address] [place] Cholesterol.total/Elina sterol in HDL [Mass ratio] 3.61 {ratio} Normal <5.10 [facility] Comment on above: Order Comment: Speci men Type: BLOOD SPECIMEN Ordering Facility: [facility] Address: [address] [place] [address] Performed By: #### 2 4331-1 #### [facility] CLIA [id number] [address] [place] [address] [place] [facility] CLIA [id number] [address] [place] [address] [place] #### 3016-3 #### [facility] CLIA [id number] [address] [place] [address] [place] FASTING TIME 12 hrs Normal [facility] Comment on above: Order Comment: Speci men Type: BLOOD SPECIMEN Ordering Facility: [facility] Address: [address] [place] [address] Performed By: #### 2 4331-1 #### [facility] CLIA [id number] [address] [place] [address] [place] [facility] CLIA [id number] [address] [place] [address] [place] #### 3016-3 #### [facility] CLIA [id number] [address] [place] [address] [place] Triglyceride [Mass/Vol] 70 mg/dL Normal <150 [facility] Comment on above: Order Comment: Speci men Type: BLOOD SPECIMEN Ordering Facility: [facility] Address: [address] [place] [address] Result Comment: <150 mg/dL, Normal 150-199 mg/dL, Borderline high 200-499 mg/dL, High >499 mg/dL, Very high Performed By: #### 2 4331-1 #### [facility] CLIA [id number] [address] [place] [address] [place] [facility] CLIA [id number] [address] [place] [address] [place] #### 3016-3 #### [facility] CLIA [id number] [address] [place] [address] [place] TSH SerPl-aCncon 12-28-2023 TSH Qn 2.900 m[IU]/L Normal 0.270-4.200 [facility] Comment on above: Order Comment: Speci men Type: BLOOD SPECIMEN Ordering Facility: [facility] Address: [address] [place] [address] Performed By: #### 2 4331-1 #### [facility] CLIA [id number] [address] [place] [address] [place] [facility] CLIA [id number] [address] [place] [address] [place] #### 3016-3 #### [facility] CLIA [id number] [address] [place] [address] [place] [employer] Office Visit Reporton 12-11-2023 [employer] Office Visit Report [facility] [address], [address] [place] [address] OFFICE VISIT Date of Service: 12/11/23 MR#: [id number] Acct: [id number] Name: ALFONSO VERDUGO Rep #: [id number] : 1960 Provider: Dr. 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 Coding Level of Care Code Attention Director Print Diagnoses Abnormal Pap smear of cervix R87.619 CPT Codes Colposcopy - Cervix+upper/adj vag+bx cervix: Yes (42808) Assessment and Plan Assessment and Plan (1) Abnormal Pap smear of cervix: Status: Acute Comment: repeat pap and hpv 2023- ascus hpv pos, biopsies done at [facility] 12/12. Orders: Orders Colposcopy Today R87.619 - Unspecified abnormal cytological findings in specimens from cervix uteri 12/11/23 1415 Date Rose Marie Ugarte (more content not included)... Normal [facility] SCRN MAMM (CAD)W/PRISCILA BILATo n 12-11-2023 SCRN MAMM (CAD)W/PRISCILA BILAT [facility] Imaging Services [address] [place] [address] SCRN MAMM (CAD)W/PRISCILA BILAT MR#: [id number] Acct: [id number] Name: ALFONSO VERDUGO PASCALE Rep #: [id number] : 1960 F 63 From: Thaddeus chaudhry MD PCP: Dr. Millie Payton MD Status: [facility] Study: SCRN MAMM (CAD)W/PRISCILA BILAT Date of Exam: 11/20 04/14 Exam# [id number] Ordering Dr: Rose Marie Brush [id number] MAMMOGRAPHY - BILATERAL SCREENING REASON FOR EXAM: [...] delay biopsy of a clinically suspicious abnormality. [id number] Electronically Signed: Thaddeus aMy MD at 14:12 EDT , CC: Dr. Millie Payton MD; Dr. Rose Marie Brush MD Fire Prevention Specialist: Signed Normal [facility] Surgery Specimen Level Latisha 12-11-2023 Surgery Specimen Level IV Patient Age/Sex Location Account Attending Physician LUCINAALFONSO NELSON PASCALE 63/F [facility] [id number] Dr. Rose Marie Brush MD Specimen: [id number] Received: 12/12/23 Status: CASS Glez Num: [id number] Spec Type: CERV Subm Dr: Dr. Rose Marie Brush MD HEADER OPERATION: Colposcopy PRE-OP DIAGNOSIS: Abnormal pap smear of cervix/ HPV test positive TISSUE SUBMITTED: A- 6o'clock, B- 8o'clock MICROSCOPIC DIAGNOSIS A. Cervix, 6o'clock, biopsy: Rare glandular mucosa present. B. Cervix, 8o'clock, biopsy: Minimal chronic inflammation. HPV change present See comment. AM 12/13/2023 COMMENT B. Immunohistochemistry ([id number]) for surrogate HPV marker (p16) shows weak, [...] totally submitted in one cassette. 12/12/2023 TC:3 [facility]:66175m3 Patient Age/Sex Location Account Attending Physician ALFONSO VERDUGO 63/F [facility] [id number] Dr. Rose Marie Brush MD Signed (signature on file) Dr. Aly Lundberg DO 12/14/23 1418 Normal [facility] Comment on above: Performed By: #### P SUIV #### [facility] [address] [place] [address], [address] p16 (initial)on 12-11-2023 p16 (initial) --- Patient Age/Sex Location Account Attending Physician ALFONSO VERDUGO 63/F [facility] [id number] Dr. Rose Marie Brush MD Specimen: [id number] Received: 12/14/23 Status: CASS Glez Num: [id number] Spec Type: IMMUNO Subm Dr: Dr. Rose Marie Brush MD [facility] [address] [address] SPECIMEN INFORMATION: Tissue Source: B- 8o'clock Clinical Info: Abnormal pap smear of cervix, HPV positive test Specimen Number: [id number] CPT code: 70873,15955 METHODOLOGY: Deparaffinized sections of prefer/formalin-fixed tissue or [...] developed and their performance characteristics determined by [facility]. They may not have been cleared [...] file) Dr. Aly Lundberg, 12/14/23 1458 Normal [facility] Comment on above: Performed By: #### P P16 ####[facility] [address] [place], [place], [id number] PAP IG HPV APTIMA 16/18,45on 10-17-2023 ADEQ Comment Normal . [facility] Comment on above: Order Comment: Speci men Comment: [id number] Comment: Source.............Cervix;EndocervixSpecimen Comment: Other..............Post MenopausalSpecimen Comment: No. of containers..01 ThinPrep Vial Result Comment: Sati sfactory for evaluation. Endocervical and/or squamous metaplastic cells (endocervical component) are present. Performed By: #### L 7400.0280 ####[facility] [address] [place], [place], [address] COMM . Normal . [facility] Comment on above: Order Comment: Speci men Comment: [id number] Comment: Source.............Cervix;EndocervixSpecimen Comment: Other..............Post MenopausalSpecimen Comment: No. of containers..01 ThinPrep Vial Performed By: #### L 7400.0280 ####[facility] [address] [place], [place], [id number] COMMENT Comment Normal . [facility] Comment on above: Order Comment: Speci men Comment: [id number] Comment: Source.............Cervix;EndocervixSpecimen Comment: Other..............Post MenopausalSpecimen Comment: No. of containers..01 ThinPrep Vial Result Comment: This liquid based ThinPrep(R) pap test was screened with the use of an image guided system. Performed By: #### L 7400.0280 ####[facility] [address] [place], [place], [phone] DIAG Comment Abnormal . [facility] Comment on above: Order Comment: Speci men Comment: [id number] Comment: Source.............Cervix;EndocervixSpecimen Comment: Other..............Post MenopausalSpecimen Comment: No. of containers..01 ThinPrep Vial Result Comment: EPIT HELIAL CELL ABNORMALITY. ATYPICAL SQUAMOUS CELLS OF UNDETERMINED SIGNIFICANCE (ASC-US). CELLULAR CHANGES ASSOCIATED WITH ATROPHY ARE PRESENT. Performed By: #### L 7400.0280 ####[facility] [address] [place], [place], [address] HPV APTIMA, HR Positive Abnormal Negative [facility] Comment on above: Order Comment: Speci men Comment: [id number] Comment: Source.............Cervix;EndocervixSpecimen Comment: Other..............Post MenopausalSpecimen Comment: No. of containers..01 ThinPrep Vial Result Comment: This nucleic acid amplification test detects fourteen high- risk HPV types (16,18,31,33,35,39,45,51,52,56,58,59,66,68) without differentiation. Performed By: #### L 7400.0280 ####[facility] [address] [place], [place], [address] HPV Roxann Rfx Comment Normal . [facility] Comment on above: Order Comment: Speci men Comment: [id number] Comment: Source.............Cervix;EndocervixSpecimen Comment: Other..............Post MenopausalSpecimen Comment: No. of containers..01 ThinPrep Vial Result Comment: Crit eria not met, HPV Genotype not performed. Performed at: - [address] [id number] Mercantile Reporter: Deanne Trevino MD, Phone: [phone] Performed at: = - [address] [id number] Mercantile Reporter: Deanne Trevino MD, Phone: [phone] Performed By: #### L 7400.0280 ####[facility] [address] [place], [place], [address] PAPSMR Comment Normal . [facility] Comment on above: Order Comment: Speci men Comment: [id number] Comment: Source.............Cervix;EndocervixSpecimen Comment: Other..............Post MenopausalSpecimen Comment: No. [...] do occur. Performed By: #### L 7400.0280 ####[facility] [address] [place], [address] Path.prov.IDC-9 Comment Normal . [facility] Comment on above: Order Comment: Speci men Comment: [id number] Comment: Source.............Cervix;EndocervixSpecimen Comment: Other..............Post MenopausalSpecimen Comment: No. of containers..01 ThinPrep Vial Result Comment: R87. 610 Performed By: #### L 7400.0280 ####[facility] [address] [place], [place], [address] PERFORM Comment Normal . [facility] Comment on above: Order Comment: Speci men Comment: [id number] Comment: Source.............Cervix;EndocervixSpecimen Comment: Other..............Post MenopausalSpecimen Comment: No. of containers..01 ThinPrep Vial Result Comment: Licha Wade Diving Board Assembler (ASCP) Performed By: #### L 7400.0280 ####[facility] [address] [place], [place], [address] SIGN Comment Normal . [facility] Comment on above: Order Comment: Speci men Comment: [id number] Comment: Source.............Cervix;EndocervixSpecimen Comment: Other..............Post MenopausalSpecimen Comment: No. of containers..01 ThinPrep Vial Result Comment: Lorena Figueroa MD, Pathologist Performed By: #### L 7400.0280 ####[facility] [address] [place], [address] Border Guard Office Visit Reporton 10-11-2023 Border Guard Office Visit Report [facility] [address], [address] [place] [address] OFFICE VISIT Date of Service: 10/11/23 MR#: [id number] Acct: [id number] Name: ALFONSO VERDUGO PASCALE Rep #: [id number] : 1960 Provider: Dr. 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 History 3 Elective abortions Hx Para 2 Spontaneous abortions 1 Hx # Term Pregnancies Ectopic pregnancies Hx # Pregnancies Multiple births # of living children Past Pregnancies Del. Date Name GA/Weeks Outcome Route Bth Weight Gen Labor Lgth Anesthesia Del [facility] Provider FOB Unknown Vasyl-1989 Unknown Yobany-1993 HPI [...] acute distress, well developed and well groomed [facility] Head: normal to inspection and normocephalic Ears: [...] to inspectio (more content not included)... Normal [facility] URINE CULTURE [CCL]on 2023 Bacteria identified Cx Nom (U) URCUL See Results Below See Below CULTURE, URINE NORMAL UROGENITAL [place] <10,000 CFU/ml Normal urogenital oneida SOURCE: Urine (Nonspecific) [place] [address] Dale Benoit III, M.D. [id number] SEND TO IC NO Normal [facility] Comment on above: Performed By: #### 2 68609 #### [facility],[address] [place], [place] [address] Bacteria Ur Culton 4 Bacteria identified Cx Nom (U) ORGANISM ID: 1 <10,000 CFU/ml Normal urogenital oneida Normal [facility] Comment on above: Performed By: #### 6 30-4 #### [facility] CLIA [id number] [address] [place], [place] [id number] [place] URINALYSIS WITH MICROSCOPYon 08-02-2023 Amorphous NONE Normal [facility] Comment on above: Performed By: #### 2 73312 #### [facility],[address] [place] [address] Bacteria NONE Normal [facility] Comment on above: Performed By: #### 2 99978 #### [facility],[address] [place] [address] Bilirubin Ql (U) Negative Normal NORMAL: NEGATIVE [facility] Comment on above: Performed By: #### 2 97906 #### [facility],[address] [place] [address] Calcium Ox 2+ Normal NORMAL: NONE [facility] Comment on above: Performed By: #### 2 17721 #### [facility],[address] [place] [address] Casts NONE Normal [facility] Comment on above: Performed By: #### 2 18571 #### [facility],[address] [place] [address] Clarity (U) CLEAR Normal NORMAL: CLEAR [facility] Comment on above: Performed By: #### 2 32500 #### [facility],[address] [place] [address] Color (U) rosa Normal NORMAL: YELLOW [facility] Comment on above: Performed By: #### 2 47732 #### [facility],[address] [place] [address] Crystals LM Nom (Urine sed) SEE BELO Normal [facility] Comment on above: Performed By: #### 2 51700 #### [facility],[address] [place] [address] Epi Cells NONE Normal [facility] Comment on above: Performed By: #### 2 60324 #### [facility],[address] [place] [address] 19394 Glucose Ql (U) NORM Normal NORMAL: NORMAL [facility] Comment on above: Performed By: #### 2 23340 #### [facility],[address] [place] [address] Hemoglobin Ql (U) 10 Abnormal NORMAL: NEGATIVE [facility] Comment on above: Performed By: #### 2 24460 #### [facility],[address] [place] [address] Ketone 15 Abnormal NORMAL: NEGATIVE [facility] Comment on above: Performed By: #### 2 37174 #### [facility],[address] [place] [address] Leukocytes 25 Abnormal NORMAL: NEGATIVE [facility] Comment on above: Result Comment: URIN E MICROSCOPIC Performed By: #### 2 04875 #### [facility],[address] [place], [place] [address] Mucous NONE Normal [facility] Comment on above: Performed By: #### 2 14237 #### [facility],[address] [place] [address] Nitrite Ql (U) Negative Normal NORMAL: NEGATIVE [facility] Comment on above: Performed By: #### 2 90671 #### [facility],[address] [place] [address]85 pH (U) 5 [pH] Normal NORMAL: 5.0-8.0 [facility] Comment on above: Performed By: #### 2 93268 #### [facility],[address] [place] [address] 40081 Protein Ql (U) 15 Abnormal NORMAL: NEGATIVE [facility] Comment on above: Performed By: #### 2 88861 #### [facility],[address] [place] [address]0928 Rbc 0-5 Normal 0-3 / hpf [facility] Comment on above: Performed By: #### 2 59112 #### [facility],[address] [place] [address] Sp [place] 1.030 Normal NORMAL: 1.010-1.030 [facility] Comment on above: Performed By: #### 2 60883 #### [facility],[address] [place] [address] Specimen Type R Normal [facility] Comment on above: Performed By: #### 2 27562 #### [facility],[address] [place] [address] URINALYSIS WITH MICROSCOPY Normal [facility] Comment on above: Result Comment: URIN ALYSIS Performed By: #### 2 83994 #### [facility],[address] [place] [address] Urobilinog 1 Abnormal NORMAL: NORMAL [facility] Comment on above: Performed By: #### 2 73917 #### [facility],[address] [place] [address] Wbc 1-5 Normal 0-5 / hpf [facility] Comment on above: Performed By: #### 2 00655 #### [facility],[address] [place] [address] Yeast NONE Normal [facility] Comment on above: Performed By: #### 2 05388 #### [facility],[address] [place] [address] Laboratory - Chemistry and C hemistry - challengeOrdered By: Rose Marie Brush on 03-01-2023 Free T4 [Mass/Vol] 1.21 ng/dL 0.76-1.46 [facility] No Panel InformationOrdered By: Rose Marie Brush on 03-01-2023 Thyroid Stimulating Hormone (TSH) 2.34 uIU/mL 0.358-3.74 [facility] CNPNon 01-01-2023 CNPN Telephone (CARCMN) ALFONSO VERDUGO ([id number]) 1960 F Date Time Provider Department 01/01/23 VINH KAPADIA During your visit today, we recorded the following information about you: Bo Shipley 01/01/2023 9:38 AM Signed ECHO order faxed to [facility] at [phone]. Bo Shipley Allergies As of Date: 01/01/2023 [...] Status:Closed by BO SHIPLEY on 01/01/23 Normal [facility] Absolute lymphocyte countOrd ered By: Rose Marie Brush on 12-19-2022 Lymphocytes Auto (Unsp spec) [#/Vol] 1.93 10*3/uL 0.83-4.51 [facility] Basophil percentageOrdered B y: Rose Marie Brush on 12-19-2022 Basophils/100 WBC (Bld) 0.8 % 0-1 [facility] Bilirubin [Mass/Vol] 0.40 mg/dL 0.20-1.00 [facility] Comment on above: For patients on eltr ombopag therapy, use of Dimension [place] TBIL is not recommended. Chloride [Moles/Vol] 107 mmol/L 98-107 [facility] Eosinophils/100 WBC (Bld) 1.9 % 0-5 [facility] Glucose [Mass/Vol] 94 mg/dL 74-106 [facility] Neutrophils (Bld) [#/Vol] 2.8 10*3/uL 2.0-7.7 [facility] Neutrophils/100 WBC (Bld) 53.7 % 47-70 [facility] Potassium [Moles/Vol] 3.9 mmol/L 3.5-5.[address] [facility] Protein [Mass/Vol] 7.9 g/dL 6.4-8.2 [facility] Sodium [Moles/Vol] 138 mmol/L 136-145 [facility] WBC (Bld) [#/Vol] 5.2 10*3/uL 4.4-11.0 [facility] Blood erythrocytes count (nu mber/volume)Ordered By: Rose Marie Brush on 12-19-2022 RBC (Bld) [#/Vol] 5.04 10*6/uL 4.2-5.4 [facility] Blood hemoglobin measurement (mass/volume)Ordered By: Rose Marie Brush on 12-19-2022 Hemoglobin (Bld) [Mass/Vol] 13.8 g/dL 12.0-15.0 [facility] Blood lymphocytes/100 leukoc ytesOrdered By: Rose Marie Brush on 12-19-2022 Lymphocytes/100 WBC (Bld) 36.9 % 19-41 [facility] Blood monocytes/100 leukocyt esOrdered By: Rose Marie Brush on 12-19-2022 Monocytes/100 WBC (Bld) 6.5 % 0-10 [facility] Blood platelet mean volumeOr dered By: Rose Marie Brush on 12-19-2022 Platelet mean volume (Bld) [Entitic vol] 10.4 fL 6.2-12.0 [facility] Determination of erythrocyte mean corpuscular volume (MCV)Ordered By: Rose Marie Brush on 12-19-2022 MCV (RBC) [Entitic vol] 87.1 fL 81-99 [facility] Hematocrit Auto (Bld) [Volum e fraction]Ordered By: Rose Marie Brush on 12-19-2022 Hematocrit (Bld) [Volume fraction] 43.9 % 37-47 [facility] Laboratory - Chemistry and C hemistry - challengeOrdered By: Rose Marie Brush on 12-19-2022 ALP [Catalytic activity/Vol] 111 U/L 45-117 [facility] ALT [Catalytic activity/Vol] 23 U/L 13-56 [facility] CO2 [Moles/Vol] 28.0 mmol/L 21.0-32.0 [facility] Globulin (S) [Mass/Vol] 4.3 g/dL 2.2-4.2 [facility] Urea nitrogen/Creatinine [Mass ratio] 17.6 mg/mg 10-20 [facility] Laboratory - Chemistry and C hemistry - challengeOrdered By: Fabi Alfonso on 12-19-2022 Free T4 [Mass/Vol] 1.55 ng/dL 0.76-1.46 [facility] Laboratory - Hematology and Cell countsOrdered By: Rose Marie Brush on 12-19-2022 Erythrocyte distribution width (RBC) [Entitic vol] 48.2 fL 35.1-43.9 [facility] Erythrocyte distribution width (RBC) [Ratio] 15.0 % 11.6-14.6 [facility] Immature granulocytes/100 WBC (Bld) 0.200 % 0.0-0.9 [facility] Comment on above: IG% - Immature Granu locytes (promyelocytes, myelocytes and metamyelocytes) > 1% indicates that a LEFT SHIFT is Present. MCH (RBC) [Entitic mass] 27.4 pg 27.0-32.0 [facility] Nucleated RBC/100 WBC (Bld) [Ratio] 0 % 0-5 [facility] MCHC Auto (RBC) [Mass/Vol]Or dered By: Rose Marie Brush on 12-19-2022 MCHC (RBC) [Mass/Vol] 31.4 g/dL 32-[address] [facility] No Panel InformationOrdered By: Rose Marie Brush on 12-19-2022 Estimated GFR (MDRD) Amer 103 mL/min >60 [facility] Comment on above: GFR Calc Estimated GFR (MDRD) Non-Af Amer 85 mL/min >60 [facility] Comment on above: Non- GFR Calc Thyroid Stimulating Hormone (TSH) 1.45 uIU/mL 0.358-3.74 [facility] Vitamin D 25-Hydroxy 31.4 ng/mL [facility] Comment on above: Vitamin D 25(OH) Sta tus Range Deficiency <20 ng/mL (50nmol/L) Insufficiency 20 - 30 ng/mL (50 - 75 nmol/L) Sufficiency 30 - 100 ng/mL (75 - 250 nmol/L) Toxicity >100 ng/mL (>250 nmol/L) Platelets bldOrdered By: Justin Brush on 12-19-2022 Platelets (Bld) [#/Vol] 318 10*3/uL 150-450 [facility] Serum or plasma albumin alisa urement (mass/volume)Ordered By: Rose Marie Brush on 12-19-2022 Albumin [Mass/Vol] 3.6 g/dL 3.2-5.0 [facility] Serum or plasma albumin/glob ulin mass ratioOrdered By: Rose Marie Brush on 12-19-2022 Albumin/Globulin [Mass ratio] 0.8 {ratio} 0.9-2.4 [facility] Serum or plasma calcium alisa urement (mass/volume)Ordered By: Rose Marie Brush on 12-19-2022 Calcium [Mass/Vol] 8.7 mg/dL 8.5-10.1 [facility] Serum or plasma creatinine m easurement (mass/volume)Ordered By: Rose Marie Brush on 12-19-2022 Creatinine [Mass/Vol] 0.74 mg/dL 0.55-1.[address] [facility] Comment on above: The validity of the calculated GFR & GFRAA in patients over 70 years has not been determined. Clinical correlation is essential. Serum or plasma urea nitroge n measurement (mass/volume)Ordered By: Rose Marie Brush on 12-19-2022 Urea nitrogen [Mass/Vol] 13 mg/dL 7-18 [facility] Thin prep Papanicolaou smear with manual screeningOrdered By: Rose Marie Brush on 12-19-2022 Thin prep Papanicolaou smear with manual screening 11 U/L 15-37 [facility] Thin prep Papanicolaou smear with manual screening 3 5-15 [facility] Whole blood hemoglobin A1c/t otal hemoglobin ratio (mass fraction)Ordered By: Rose Marie Brush on 12-19-2022 HbA1c (Bld) [Mass fraction] 5.6 % 3.8-5.6 [facility] Comment on above: Normal < 5.7 % Predi abetic 5.7 - 6.4 % Diabetic >or= 6.5 % Please note range changes. Cervical or vagninal specime n microscopic examination by cytology stain (reported asOrdered By: Rose Marie Brush on 10-05-2022 Cytology report Cyto stain Doc (Cvx/Vag) Comment . [facility] Comment on above: The Pap smear is [...] DNA Probe+sig amp Ql (Cvx) Positive Negative [facility] Comment on above: This nucleic acid am plification test detects fourteen high-risk HPV types (16,18,31,33,35,39,45,51,52,56,58,59,66,68)without differentiation. Laboratory - CytologyOrdered By: Rose Marie Brush on 10-05-2022 Corporate Security Officer Cyto stain Nom (Cvx/Vag) [ID] Comment . [facility] Comment on above: Leanna Pate, Cytot echnologist (ASCP) Pathologist Cyto stain Nom (Cvx/Vag) [ID] Comment . [facility] Comment on above: Mandy Figueroa MD, P athologist Laboratory - Miscellaneous t estsOrdered By: Rose Marie Brush on 10-05-2022 Service comment (Unsp spec) [Interp] Comment . [facility] Comment on above: This liquid based Th inPrep(R) pap test was screened withthe use of an image guided system. Service comment (Unsp spec) [Interp] . . [facility] Liquid-based cerv Pap + CT/G C by ABNER w reflex to high-risk HPV for ASCUSOrdered By: Rose Marie Brush on 10-05-2022 Cytology report Cyto stain.thin prep Doc (Cvx/Vag) Comment . [facility] Comment on above: Criteria not met, HP V Genotype not performed.Performed at: - [facility] [id number] Director: Deanne Trevino MD, Phone: [phone] at: = - [facility] [id number] Director: Deanne Trevino MD, Phone: [phone] No Panel InformationOrdered By: Rose Marie Brush on 10-05-2022 Pathology report final diagnosis Narrative Comment . [facility] Comment on above: EPITHELIAL CELL ABNO RMALITY.ATYPICAL SQUAMOUS CELLS OF UNDETERMINED SIGNIFICANCE (ASC-US).CELLULAR CHANGES ASSOCIATED WITH ATROPHY ARE PRESENT. R87.610 MRI BRAIN WO IVCONon 023 [facility] Cervical or vagninal specime n microscopic examination by cytology stain (reported ason 09-30-2021 Cytology report Cyto stain Doc (Cvx/Vag) Comment . [facility] Work Phone: Comment on above: The Pap [...] DNA Probe+sig amp Ql (Cvx) Positive Negative [facility] Work Phone: Comment on above: This nucleic acid am plification test detects fourteen high-risk HPV types (16,18,31,33,35,39,45,51,52,56,58,59,66,68)without differentiation.Performed at: - [facility] [id number] Director: Deanne Trevino MD, Phone: [phone] at: = - [facility] [address] [id number] Director: Deanne Trevino MD, Phone: [phone] Laboratory - Cytologyon 09-19 Corporate Security Officer Cyto stain Nom (Cvx/Vag) [ID] Comment . [facility] Work Phone: Comment on above: Julio Rubio , Diving Board Assembler (ASCP) Pathologist Cyto stain Nom (Cvx/Vag) [ID] Comment . [facility] Work Phone: Comment on above: Angela Corea MD, Pa thologist Recommended follow-up Cyto stain Nom (Cvx/Vag) Comment . [facility] Work Phone: Comment on above: Suggest follow up as clinically appropriate. Laboratory - Miscellaneous t estson 09-30-2021 Service comment (Unsp spec) [Interp] Comment . [facility] Work Phone: Comment on above: This liquid based Th inPrep(R) pap test was screened withthe use of an image guided system. Service comment (Unsp spec) [Interp] . . [facility] Work Phone: No Panel Informationon 09-30 Pathology report final diagnosis Narrative Comment . [facility] Work Phone: Comment on above: EPITHELIAL CELL ABNO RMALITY.ATYPICAL SQUAMOUS CELLS OF UNDETERMINED SIGNIFICANCE (ASC-US). R87.610 25-Hydroxy D2+D3on 25-Hydroxy D Total 25.7 ng/mL Low 30.0-100.0 [facility] Comment on above: Performed By: #### D 2D3 #### [facility] Chemistry [address] [address] 25-Hydroxy D2 <4.0 Normal [facility] Reference [facility] Comment on above: Performed By: #### D 2D3 #### [facility] Chemistry [address] [place], [place] [address] 25-Hydroxy D3 25.7 ng/mL Normal [facility] Reference Lab Comment on above: Performed By: #### D 2D3 #### [facility] Chemistry [address] [place], [place] [address] Vital Signs Date Time Vital Sign Value Performing Clinician Megan groves 09-08-2024 15:57-0400 Body height 167.[address] Millie Payton MD Work Phone: [facility] 09-08-2024 15:51-0400 Body mass index (BMI) [Ratio] 34.5 kg/m2 Dr. Millie Payton MD Work Phone: [facility] 09-08-2024 15:51-0400 Body weight 97.[address] Millie Payton MD Work Phone: [facility] 09-08-2024 15:51-0400 Diastolic blood pressure 80 mm[Hg] Dr. Millie Payton MD Work Phone: [facility] 09-08-2024 15:51-0400 Heart rate 88 /min Dr. Millie Payton MD Work Phone: [facility] 09-08-2024 15:51-0400 Systolic blood pressure 132 mm[Hg] Dr. Millie Payton MD Work Phone: [facility] 08-20-2024 23:35-0400 Body temperature 98.1 [degF] Dr. Millie Payton MD Work Phone: [facility] 08-20-2024 23:35-0400 Diastolic blood pressure 83 mm[Hg] Dr. Millie Payton MD Work Phone: [facility] 08-20-2024 23:35-0400 Heart rate 70 /min Dr. Millie Payton MD Work Phone: [facility] 08-20-2024 23:35-0400 Respiratory rate 16 /min Dr. Millie Payton MD Work Phone: [facility] 08-20-2024 23:35-0400 SaO2% (BldA) [Mass fraction] 100 % Dr. Millie Payton MD Work Phone: [facility] 08-20-2024 23:35-0400 Systolic blood pressure 149 mm[Hg] Dr. Millie Payton MD Work Phone: [facility] 08-20-2024 21:14-0400 Body height 167.[address] Millie Payton MD Work Phone: 7(356)346-299524 [place] [address] 08-14-2024 09:11-0400 Body height 167.[address] Millie Payton MD Work Phone: 4(086)807-235124 [place] [address] 08-14-2024 09:11-0400 Body mass index (BMI) [Ratio] 35 kg/m2 Dr. Millie Payton MD Work Phone: 2(103)344-505424 [place] [address] 08-14-2024 09:11-0400 Body temperature 97.3 [degF] Dr. Millie Payton MD Work Phone: 3(197)305-201224 [place] [address] 08-14-2024 09:11-0400 Body weight 98.[address] Millie Payton MD Work Phone: 9(025)805-131824 [place] [address] 08-14-2024 09:11-0400 Diastolic blood pressure 77 mm[Hg] Dr. Millie Payton MD Work Phone: 1(955)779-092024 [place] [address] 08-14-2024 09:11-0400 Heart rate 78 /min Dr. Millie Payton MD Work Phone: [facility] 08-14-2024 09:11-0400 Respiratory rate 18 /min Dr. Millie Payton MD Work Phone: [facility] 08-14-2024 09:11-0400 SaO2% (BldA) [Mass fraction] 99 % Dr. Millie Payton MD Work Phone: [facility] 08-14-2024 09:11-0400 Systolic blood pressure 135 mm[Hg] Dr. Millie Payton MD Work Phone: 3(113)255-615924 [place] [address] 08-13-2024 16:25-0400 Body temperature 97.5 [degF] Dr. Millie Payton MD Work Phone: 1(193)089-304924 [place] [address] 08-13-2024 16:25-0400 Diastolic blood pressure 62 mm[Hg] Dr. Millie Payton MD Work Phone: 8(094)032-775105 [address] 08-13-2024 16:25-0400 Heart rate 65 /min Dr. Millie Payton MD Work Phone: 8(250)057-218005 [address] 08-13-2024 16:25-0400 Respiratory rate 17 /min Dr. Millie Payton MD Work Phone: 7(825)337-273924 [place] [address] 08-13-2024 16:25-0400 SaO2% (BldA) [Mass fraction] 99 % Dr. Millie Payton MD Work Phone: 7(721)250-513224 [place] [address] 08-13-2024 16:25-0400 Systolic blood pressure 128 mm[Hg] Dr. Millie Payton MD Work Phone: 9(428)512-501624 [place] [address] 08-13-2024 10:41-0400 Body height 167.[address] Millie Payton MD Work Phone: 2(187)925-066424 [place] [address] 08-13-2024 10:41-0400 Body mass index (BMI) [Ratio] 33.4 kg/m2 Dr. Millie Payton MD Work Phone: 8(976)877-721624 [place] [address] 08-13-2024 10:41-0400 Body weight 93.[address] Millie Payton MD Work Phone: 7(151)480-608924 [place] [address] 08-04-2024 08:20-0400 Body temperature 97.2 [degF] Dr. Millie Payton MD Work Phone: 4(396)859-582024 [place] [address] 08-04-2024 08:20-0400 Diastolic blood pressure 77 mm[Hg] Dr. Millie Payton MD Work Phone: 9(138)508-254724 [place] [address] 08-04-2024 08:20-0400 Heart rate 55 /min Dr. Millie Payton MD Work Phone: 8(858)363-307805 [address] 08-04-2024 08:20-0400 Respiratory rate 16 /min Dr. Millie Payton MD Work Phone: 5(340)352-561132 [place] [address] 08-04-2024 08:20-0400 SaO2% (BldA) [Mass fraction] 100 % Dr. Millie Payton MD Work Phone: 9(383)037-710032 [place] [address] 08-04-2024 08:20-0400 Systolic blood pressure 113 mm[Hg] Dr. Millie Payotn MD Work Phone: 4(334)620-330832 [place] [address] 08-04-2024 06:48-0400 Body height 167.[address] Millie Payton MD Work Phone: 3(105)743-627432 [place] [address] 08-04-2024 06:48-0400 Body mass index (BMI) [Ratio] 33.4 kg/m2 Dr. Millie Payton MD Work Phone: 0(723)956-373632 [place] [address] 08-04-2024 06:48-0400 Body weight [address] Millie Payton MD Work Phone: 8(248)400-529632 [place] [address] 05-30-2024 11:34-0400 Body mass index (BMI) [Ratio] 34 kg/m2 Dr. Millie Payton MD Work Phone: 8(655)403-174332 [place] [address] 05-30-2024 11:34-0400 Body weight 95.[address] Millie Payton MD Work Phone: 9(646)151-398632 [place] [address] 05-30-2024 11:34-0400 Diastolic blood pressure 84 mm[Hg] Dr. Millie Payton MD Work Phone: [facility] 05-30-2024 11:34-0400 Heart rate 71 /min Dr. Millie Payton MD Work Phone: [facility] 05-30-2024 11:34-0400 Systolic blood pressure 125 mm[Hg] Dr. Millie Payton MD Work Phone: [facility] 04-30-2024 08:41-0400 Body mass index (BMI) [Ratio] 33.7 kg/m2 Dr. Millie Payton MD Work Phone: [facility] 04-30-2024 08:41-0400 Body weight 94.[address] Millie Payton MD Work Phone: [facility] 04-30-2024 08:41-0400 Diastolic blood pressure 82 mm[Hg] Dr. Millie Payton MD Work Phone: [facility] 04-30-2024 08:41-0400 Heart rate 77 /min Dr. Millie Payton MD Work Phone: [facility] 04-30-2024 08:41-0400 Systolic blood pressure 130 mm[Hg] Dr. Millie Payton MD Work Phone: [facility] 04-03-2024 13:30-0500 Body mass index (BMI) [Ratio] 33.9 kg/m2 Dr. Millie Payton MD Work Phone: [facility] 04-03-2024 13:30-0500 Body weight 95.[address] Millie Payton MD Work Phone: [facility] 04-03-2024 13:30-0500 Diastolic blood pressure 84 mm[Hg] Dr. Millie Payton MD Work Phone: [facility] 04-03-2024 13:30-0500 Heart rate 67 /min Dr. Millie Payton MD Work Phone: [facility] 04-03-2024 13:30-0500 Systolic blood pressure 133 mm[Hg] Dr. Millie Payton MD Work Phone: [facility] 12-26-2022 09:14-0500 Diastolic blood pressure 94 mm[Hg] Vinh Kapadia MD Work Phone: [facility] 12-26-2022 09:14-0500 Systolic blood pressure 155 mm[Hg] Vinh Kapadia MD Work Phone: [facility] 12-26-2022 09:06-0500 Body height 167.6 cm Vinh Kapadia MD Work Phone: [facility] 12-26-2022 09:06-0500 Body weight 99.79 kg Vinh Kapadia MD Work Phone: [facility] 12-26-2022 09:06-0500 Heart rate 71 /min Vinh Kapadia MD Work Phone: [facility] 12-26-2022 09:06-0500 SaO2% (BldA) [Mass fraction] 98 % Vinh Kapadia MD Work Phone: [facility] 11-23-2022 14:28-0400 Body height 167.[address] Millie Payton Work Phone: [facility] 11-23-2022 14:27-0400 Body mass index (BMI) [Ratio] 36.9 kg/m2 Dr. Millie Payton Work Phone: [facility] 11-23-2022 14:27-0400 Body weight 103.[address] Millie Payton Work Phone: [facility] 11-23-2022 14:27-0400 Diastolic blood pressure 90 mm[Hg] Dr. Millie Payton Work Phone: [facility] 11-23-2022 14:27-0400 Systolic blood pressure 142 mm[Hg] Dr. Millie Payton Work Phone: [facility] 10-05-2022 16:10-0400 Body height 167.[address] Millie Payton Work Phone: [facility] 10-05-2022 16:10-0400 Body mass index (BMI) [Ratio] 36.3 kg/m2 Dr. Millie Payton Work Phone: [facility] 10-05-2022 16:10-0400 Body weight 102.[address] Millie Payton Work Phone: [facility] 10-05-2022 16:10-0400 Diastolic blood pressure 84 mm[Hg] Dr. Millie Payton Work Phone: [facility] 10-05-2022 16:10-0400 Systolic blood pressure 138 mm[Hg] Dr. Millie Payton Work Phone: [facility] 09-30-2021 11:17-0400 Body height 167.[address] Millie Payton Work Phone: [facility] Work Phone: 09-30-2021 11:16-0400 Body mass index (BMI) [Ratio] 36.3 kg/m2 Dr. Millie Payton Work Phone: [facility] Work Phone: 09-30-2021 11:16-0400 Body weight 102.[address] Millie Payton Work Phone: [facility] Work Phone: 09-30-2021 11:16-0400 Diastolic blood pressure 74 mm[Hg] Dr. Millie Payton Work Phone: [facility] Work Phone: 09-30-2021 11:16-0400 Systolic blood pressure 102 mm[Hg] Dr. Millie Payton Work Phone: [facility] Work Phone: 08-09-2021 10:14-0400 Body height 167.6 cm Romero Pelletier MD Work Phone: [facility] 08-09-2021 10:14-0400 Body temperature 97.3 [degF] Romero Pelletier MD Work Phone: [facility] 08-09-2021 10:14-0400 Body weight 94.35 kg Romero Pelletier MD Work Phone: [facility] 08-09-2021 10:14-0400 Diastolic blood pressure 73 mm[Hg] Romero Pelletier MD Work Phone: [facility] 08-09-2021 10:14-0400 Heart rate 64 /min Romero Pelletier MD Work Phone: [facility] 08-09-2021 10:14-0400 Respiratory rate 15 /min Romero Pelletier MD Work Phone: [facility] 08-09-2021 10:14-0400 SaO2% (BldA) [Mass fraction] 99 % Romero Pelletier MD Work Phone: [facility] 08-09-2021 10:14-0400 Systolic blood pressure 144 mm[Hg] Romero Pelletier MD Work Phone: [facility] Encounters Encounter Date Encounter Type Care Provider Facility Start: 09-08-2024 End: 09-08-[address] Rose Marie Brush MD -[facility] Work Phone: Start: 09-08-2024 End: 09-08-[address] Millie Payton MD Work Phone: -[facility] Start: 09-08-2024 End: 09-08-[address] Millie Payton MD Work Phone: -Laboratory Specimen Start: 09-08-2024 End: 09-08-2024 Patient encounter procedure Naty ARRIAZA -Laboratory Specimen Work Phone: Start: 09-08-2024 End: 09-08-2024 ambulatory Millie Payton Facility:[facility] Start: 09-01-2024 End: 09-01-2024 Patient encounter procedure Naty ARRIAZA -[facility] Work Phone: Start: 09-01-2024 End: 09-01-[address] Millie Payton MD Work Phone: -[facility] Start: 08-20-2024 End: 08-20-2024 Emergency department patient visit Dr. Millie Payton MD Work Phone: -Emergency Department Work Phone: Start: 08-14-2024 End: 08-14-[address] Jeet Roberts MD -[facility] Work Phone: Start: 08-14-2024 End: 08-14-[address] Millie Payton MD Work Phone: [facility] Work Phone: Start: 08-13-2024 End: 08-13-2024 Emergency department patient visit Dr. Millie Payton MD Work Phone: -Emergency Department Work Phone: Start: 08-04-2024 Non-patient / Non-visit Dr. Dc Lopez MD -[facility] Start: 08-04-2024 End: 08-04-2024 Admission to same day surgery center Dr. Maryellen Lopez MD -Endoscopy Work Phone: Start: 08-04-2024 End: 08-04-[address] Millie Payton MD Work Phone: [facility] Work Phone: Start: 07-15-2024 ambulatory SELF SELF Facility:[facility] Start: 05-30-2024 End: 05-30-[address] Rose Marie Brush MD -[facility] Work Phone: Start: 05-30-2024 End: 05-30-2024 ambulatory Butros Latouf Facility:[facility] Start: 04-30-2024 End: 04-30-[address] Rose Marie rBush MD -[facility] Work Phone: Start: 04-30-2024 End: 04-30-2024 ambulatory Butros Latouf Facility:[facility] Start: 04-08-2024 End: 04-08-2024 Patient encounter procedure Tracey ARRIAZA -[facility] Work Phone: Start: 04-08-2024 End: 04-08-2024 ambulatory Tracey Hudson Facility:[facility] Start: 04-01-2024 ambulatory Butros Latouf Facility: [facility] Start: 03-05-2024 End: 03-05-2024 ambulatory Tracey Hudson Facility:[facility] Start: 01-23-2024 End: 01-23-2024 ambulatory Butros Latouf Facility:[facility] Start: 01-21-2024 ambulatory MILLIE PAYTON [facility] Start: 12-31-2023 ambulatory MILLIE MA [facility] Start: 12-31-2023 Encounter for genera l adult medical examination without abnormal findings [facility] Start: 12-28-2023 End: 12-28-2023 ambulatory BUTROS LATOUF Facility:[facility] Start: 12-28-2023 Encounter for genera l adult medical examination without abnormal findings MILLIE PAYTON [facility] [place] Start: 12-11-2023 End: 12-11-2023 ambulatory Butros Latouf Facility:[facility] Start: 12-11-2023 End: 12-11-2023 ambulatory Butros Latouf Facility:[facility] Start: 10-11-2023 End: 10-11-2023 ambulatory Butros Latouf Facility:[facility] Start: 10-11-2023 End: 10-11-2023 ambulatory Butros Latouf Facility:[facility] Start: 08-02-2023 End: 08-02-2023 ambulatory MILLIE PAYTON [facility] Start: 03-01-2023 End: 03-01-[address] Millie Payton Work Phone: [facility] Work Phone: Start: 03-01-2023 End: 03-01-[address] Millie Payton Work Phone: [facility]-Laboratory[facility] Start: 02-07-2023 Non-patient / Non-visit Dr. Baltazar Payton Work Phone: [facility] Start: 02-07-2023 End: 02-07-[address] Millie Payton Work Phone: [facility] Work Phone: Start: 02-07-2023 End: 02-07-[address] Millie Payton Work Phone: [facility]Cardi[facility] Services Work Phone: Start: 01-01-2023 Telephone encounter [...] / Non-visit Dr. Millie Payton Work Phone: [facility] Work Phone: Start: 12-19-2022 End: 12-19-[address] Millie Payton Work Phone: [facility] Work Phone: Start: 12-19-2022 End: 12-19-2022 Patient encounter procedure Dr. Mlilie Payton Work Phone: [facility] Services/Neurology Work Phone: Start: 11-23-2022 End: 11-23-[address] Millie Payton Work Phone: [facility] Work Phone: Start: 11-23-2022 End: 11-23-[address] Millie Payton Work Phone: [facility]Outpatient Breast Imaging Work Phone: Start: 10-05-2022 End: 10-05-[address] Millie Payton Work Phone: [facility] Work Phone: Start: 10-05-2022 End: 10-05-[address] Millie Payton Work Phone: [facility]-Laboratory, Specimen Work Phone: Start: 10-05-2022 End: 10-05-[address] Millie Payton Work Phone: [facility] Work Phone: Start: 02-28-2022 Telephone encounter Romero Pelletier MD Work Phone: [facility] Comment on above: Results (MRI) Start: 02-21-2022 End: 02-21-2022 Subsequent hospital visit by physician Mri [facility] (I-Stat/1.5t) Work Phone: Radiology Comment on above: Transient diplopia [ H53.2] Start: 11-07-2021 Telephone encounter Romero Pelletier MD Work Phone: [facility] Comment on above: Insurance Authorizat ion (/ Imaging Order ) Start: 10-07-2021 End: 10-07-[address] Millie Payton Work Phone: [facility] Work Phone: Start: 10-07-2021 End: 10-07-[address] Millie Payton Work Phone: [facility] Start: 09-30-2021 End: 09-30-[address] Millie Payton Work Phone: [facility] Start: 08-09-2021 End: 08-09-2021 Patient encounter procedure [...] Activity Detail Author Start: 09-26-2024 ambulatory Ambulatory Facility:[facility] Start: 09-23-2024 ambulatory Ambulatory Facility:[facility] Start: 09-08-20[address] Protein [address] [facility] Start: 08-20-2024 [facility] Start: 08-13-2024 [facility] Start: 08-04-2024 Colsc flx w/rmvl of tumor polyp lesion snare tq COLONOSCOPY W/LESION REMOVAL [facility] Start: 08-04-2024 Patient discharge [facility] Start: 10-20-2022 Covid-19 Vaccine ( season) Covid-19 Vaccine ( season) [facility] Start: 10-20-2022 Influenza vaccination [facility] Start: 10-05-2022 Liquid based cervica l cytology screening [facility] Start: 08-05-2022 Adult depression scr eening assessment DEPRESSION SCREENING [facility] Start: 2022 RSV Vaccine (1 - 1-d ose 60+ series) RSV Vaccine (1 - 1-dose 60+ series) [facility] Start: 02-19-2022 DEPRESSION ASSESSMENT DEPRESSION ASS ESSMENT [facility] Start: 10-20-2021 Influenza vaccination C [facility] Start: 09-30-2021 Liquid based cervica l cytology screening [facility] Work Phone: Start: 09-23-2020 COVID-19 VACCINE (3 - Booster for Moderna series) COVID-19 VACCINE (3 - Booster for Moderna series) [facility] Start: 06-18-2020 COVID-19 VACCINE (3 - Booster for Moderna series) COVID-19 VACCINE (3 - Booster for Moderna series) [facility] Start: 04-23-2020 COVID-19 VACCINE (2 - Moderna series) COVID-19 VACCINE (2 - Moderna series) [facility] Start: 03-18-2020 HPV TESTING HPV TESTING [facility] Start: 05-11-2017 PAP TESTING PAP TESTING [facility] Start: 05-05-2017 Mammography [facility] Start: 2012 SHINGRIX VACCINE (1 of 2) SANTILLAN GRIX VACCINE (1 of 2) [facility] Start: 2007 COLOGUARD (FIT-DNA) COLOGUARD (FIT-D NA) [facility] Start: 2007 Colonoscopy COLONOSCOPY [facility] Start: 2007 COLORECTAL CANCER SCREENING COLORECTAL CANCER SCREENING [facility] Start: [address] COLONOGRAPHY [facility] Start: 2007 DIABETES SCREEN DIABETES SCREEN [facility] Start: 2007 Diabetes Screening Diabetes Screenin g [facility] Start: 2007 FECAL OCCULT BLOOD FECAL OCCULT BLOO D [facility] Start: 2007 Lipid 1996 panel - S zoey or Plasma Lipid Screening [facility] Start: 2007 LIPID SCREEN LIPID SCREEN [facility] Start: 2007 SIGMOIDOSCOPY SIGMOIDOSCOPY [facility] Start: 1981 Urine microalbumin profile [facility] Start: 1980 HEPATITIS C SCREENING HEPATITIS C SC [facility] CT Abdomen and Pelvi s W contrast IV [facility] End: 12-27-2023 Echocardiography ECHO Cardiology Routine Abnormal ECG Encounter for screening for cardiovascular disorders 1 Occurrences starting 12/26/2022 until 12/27/2023 [facility] Work Phone: Comment on above: 1 Occurrences starti ng 12/26/2022 until 12/27/2023 Glucose [Mass/volume ] in Serum or Plasma [facility] Work Phone: Lipid 1996 panel - S zoey or Plasma [facility] Work Phone: End: 09-08-2022 Mra head w/o contrst material MRA BRAIN WO IVCON Radiology Routine Transient diplopia Transient cerebral ischemia, unspecified type 1 Occurrences starting 08/09/2021 until 09/08/2022 [facility] Work Phone: Comment on above: 1 Occurrences starti ng 08/09/2021 until 09/08/2022 End: 09-08-2022 Mri brain brain stem w/o contrast material MRI BRAIN WO IVCON Radiology Routine Transient diplopia Transient cerebral ischemia, unspecified type 1 Occurrences starting 08/09/2021 until 09/08/2022 [facility] Work Phone: Comment on above: 1 Occurrences starti ng 08/09/2021 until 09/08/2022 OUTSIDE VENDOR CARDI AC OUTPATIENT EXTENDED RHYTHM RECORDING (WITHOUT TELEMETRY) OUTSIDE VENDOR CARDIAC OUTPATIENT EXTENDED RHYTHM RECORDING (WITHOUT TELEMETRY) Holter Routine Abnormal ECG Encounter for screening for cardiovascular disorders Ordered: 12/26/2022 [facility] Work Phone: Comment on above: Ordered: 12/26/2022 Path report.final Dx Spec [facility] Patient Education Crohns Disease Lifestyle Changes ED Hypertension, To Be Confirmed [facility] Work Phone: Patient referral [facility] Work Phone: Protein measurement [facility] Radionuclide study o f abdomen [facility] Thyroid stimulating hormone measurement [facility] Work Phone: [facility] Payers Date Payer Category Payer Self-pay [id number] 2022 Private Health Insurance [id number] 2021 Unknown [employer] PPO [id number] 2021-Present [phone] [address] [place] [address] PPO [id number] 2021 Unknown [employer] Carlos Alberto PPO [id number] 2021-Present [phone] [address] [place] [address] PPO [id number] 2003 Unknown [id number] 1962 Unknown [id number] 2.16.840.1.532626.3.579.2 .651 1962 Unknown [id number] 2.16.840.1.917564.3.579.2 .651 1962 Unknown [id number] 2.16.840.1.094891.3.579.2 .651 1962 Unknown [id number] 2.16.840.1.634873.3.579.2 .651 1962 Unknown [id number] 2.16.840.1.812690.3.579.2 .594 Unknown [facility] PACKAGE PLAN [id number] Unknown [id number] 2.16.840.1.206123.3.579.2 .462 Unknown [id number] 2.16.840.1.332481.3.579.2 .462 Unknown [id number] 2.16.840.1.764319.3.579.2 .462 Unknown [id number] 2.16.840.1.291386.3.579.2 .462 Unknown [id number] 2.16.840.1.286478.3.579.2 .462 Unknown [id number] 2.16.840.1.356663.3.579.2 .462 Unknown [id number] 2.16.840.1.254265.3.579.2 .462 Unknown [id number] 2.16.840.1.441042.3.579.2 .462 Unknown [id number] 2.16.840.1.072241.3.579.2 .462 Unknown [id number] 2.16.840.1.527834.3.579.2 .462 Unknown [id number] 2.16.840.1.861981.3.579.2 .462 Unknown [id number] 2.16.840.1.232045.3.579.2 .462 Unknown [id number] 2.16.840.1.942943.3.579.2 .462 Unknown [id number] 2.16.840.1.306950.3.579.2 .462 Unknown [id number] 2.16.840.1.962268.3.579.2 .462 Unknown [id number] 2.16.840.1.651214.3.579.2 .462 Unknown [id number] 2.16.840.1.207850.3.579.2 .462 Unknown [id number] 2.16.840.1.901058.3.579.2 .462 Unknown [id number] 2.16.840.1.948078.3.579.2 .462 Unknown [id number] 2.16840.1.984772.3.579.2 .462 Unknown [id number] 2.16840.1.916469.3.579.2 .462 Social History Date Type Detail Facility Start: 12-26-2022 End: 09-08-2024 Tobacco smoking status NHIS Never smoked tobacco [facility] Start: 08-09-2021 End: 12-26-2022 Alcohol intake Current drinker of alcohol (finding) [facility] Start: 08-09-2021 End: 12-26-2022 Alcohol intake [facility] Start: 1960 Sex Assigned At Female [facility] Start: 07-30-2021 End: 08-09-2021 Exposure to SARS-CoV-2 (event) Not sure [facility] Start: 09-30-2021 End: 10-05-2022 Tobacco smoking status NHIS Unknown if ever smoked [facility] Start: 09-17-2019 Non-smoker [facility] Start: 08-09-2021 End: 12-26-2022 Tobacco use panel [facility] Adult Depression Screening Assessment 0 [facility] Start: 07-20-2021 Gender identity Identifies as female gender (finding) [facility] Start: 12-26-2022 Tobacco use and exposure Smokeless tobacco non-user [facility] NEGATED: Highlighted row Not [facility] Goals Date Patient Goal Desired Activity /State Mental Status Date Assessment Result Facility 08-04-2024 Cognitive function Voice/Name [facility] Work Phone: Clinical Notes 08-09-2021 to 08-20-2024 Note Date & Type Note Facility 08-20-2024 Discharge summary [facility] 08-20-2024 Radiology Diagnostic study note [facility] Imaging Services [address] [place], [place] [address] Abdomen/Pelvis W IV Cont ONLY MR#: [id number] Acct: [id number] Name: ALFONSO VERDUGO Rep #: [id number] : 1960 F 64 From: Mireya Lombardo MD PCP: Dr. Millie Payton MD Status: REG ER Study:Abdomen/Pelvis W IV Cont ONLY Date of E xam: 08/20/24 Exam# [id number] Ordering Dr: Milo Mcdonald MD PROCEDURE: ABDOMEN/PELVIS [...] secondary to infection. Advise correlation. Reading Location: [place] [address] CC: Dr. Millie Payton MD; Dr. Diego Mcdonald MD ~ Fire Prevention Specialist: Signed [facility] 08-20-2024 Discharge summary Note Date/Time August 20, 2024 11:28pm [facility] Medical Records Department [address] [place] [address] Emergency Department Summary 08/20/24 MR#: [id number] Acct: [id number] Name: ALFONSO VERDUGO Rep #:[id number] : 1960 64 From: Diego Mcdonald MD [...] cap PO Q24H 08/20 Unknown History mg capsule,ext.[id number] multphas (Qsymia) Allergy/AdvReac Type Severity Reaction Status [...] home: Yes additional social history: Remarried to [employer] 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 [employer] Physical Exam Const Vital Signs: 08/20/24 21:14 Temperature 97.5 F L Temperature Source Temporal Pulse Rate 80 Respiratory Rate 18 Blood Pressure 154/79 H Blood Pressure Mean 104 Pulse Ox 97 Oxygen Delivery Method Room Air [facility] Lab Data Attestation: I reviewed the patient's [...] % (Auto) 66.4 Lymph % (Auto) 24.2 [place] % (Auto) 7.2 Eos % (Auto) 1.4 [...] secondary to infection. Advise correlation. Reading Location: [facility]-2 CT of the abdomen pelvis with IV [...] treat with ciprofloxacin and metronidazole. Will have medical assistant secretary schedule appointment to see Dr. Bess [...] not mean you have Crohn'sdisease. Print Language: Fijian Disposition Disposition: Home, Self Care What to do if you have Problems For any increased pain, shortness of breath, bleeding, nausea or vomiting, chestpain, or any unexpected problems, contact your Primary Care Provider. Call [facility] ([phone]) or report to the closest Emergency Room. Call 911 if necessary. 08/20/242327 <Electronically signed by Diego Mcdonald MD> Cosigner Signature (if applicable): CC: Dr. Millie Payton MD ~ Signed [facility] Work Phone: 1(630) 742-264907-01-2025 Hospital Discharge instructionsAdditional Instructions 1. No alcoholic [...] This does not mean you have Crohn's disease.[facility] Work Phone: 1(845) 257-678106-25-2025 Discharge summary [facility] Medical Records Department [address] [place] [address] Emergency Department Summary 08/13/24 MR#: [id number] Acct: [id number] Name: ALFONSO VERDUGO Rep #:[id number] : 1960 64 From: Mich Wheatley DO [...] with 1 polyp removed and called the electronic security specialist office and they state that she should [...] pain does not get exacerbated with eating. [facility] Medical History Wears glasses Wears contact lenses [...] following commands knew that she was at [facility] the year is 2024 Skin: Warm, dry, [...] % (Auto) 59.5 Lymph % (Auto) 31.3 [place] % (Auto) 6.0 Eos % (Auto) 2.2 [...] Sl. Cloudy Urine pH 6.0 Ur Specific [place] 1.010 Urine Protein Negative Urine Glucose (UA) [...] acute cholecystitis. Nonspecific echogenic pancreas. Reading Location: [facility] Discharge Plan Triage Chief Complaint: Abd [...] with worsening symptoms or concerns. Print Language: Fijian Disposition Disposition: Home, Self Care What to do if you have Problems For any increased pain, shortness of breath, bleeding, nausea or vomiting, chestpain, or any unexpected problems, contact your Primary Care Provider. Call [facility] ([phone]) or report tothe closest Emergency Room. Call 911 if necessary. 08/13/24 1608 Cosigner Signature (if applicable): CC: Dr. Millie Payton MD ~ Signed [facility]06-25-2025 Radiology Diagnostic study note [facility] Imaging Services [address] [place] [address] Abdomen Limited MR#: [id number] Acct: [id number] Name: ALFONSO VERDUGO Rep #: [id number] : 1960 F 64 From: Zofia Guadalupe MD PCP: Dr. Millie Payton MD Status: REG ER Study:Abdomen Limited Date of Exam: 07/21 07/13 Exam# [id number] Ordering Dr: Karen Wheatley DO PROCEDURE: ABDOMEN [...] acute cholecystitis. Nonspecific echogenic pancreas. Reading Location: [facility] CC: Dr. Millie Payton MD; Dr. Mich Wheatley DO ~ Fire Prevention Specialist: Signed [facility]06-25-2025 Discharge summary Author Mich Wheatley [facility] Note Date/Time August 13, 2024 4:08 pm [facility] Medical Records Department [address] [facility] [place] [address] Emergency Department Summary 08/13/24 MR#: [id number] Acct: [id number] Name: ALFONSO VERDUGO Rep #:[id number] : 1960 64 From: Mich Wheatley DO [...] with 1 polyp removed and called the electronic security specialist office and they state that she should [...] pain does not get exacerbated with eating. [facility] Medical History Wears glasses Wears contact lenses [...] social history: Remarried to Rich! 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 [employer] ROS ED ROS Narrative Constitutional: Denies fevers, [...] following commands knew that she was at [facility] the year is 2024 Skin: Warm, dry, [...] % (Auto) 59.5 Lymph % (Auto) 31.3 [place] % (Auto) 6.0 Eos % (Auto) 2.2 [...] Sl. Cloudy Urine pH 6.0 Ur Specific [place] 1.010 Urine Protein Negative Urine Glucose (UA) [...] acute cholecystitis. Nonspecific echogenic pancreas. Reading Location: [facility] Discharge Plan Triage Chief Complaint: Abd [...] with worsening symptoms or concerns. Print Language: Fijian Disposition Disposition: Home, Self Care What to do if you have Problems For any increased pain, shortness of breath, bleeding, nausea or vomiting, chestpain, or any unexpected problems, contact your Primary Care Provider. Call [facility] ([phone]) or report to the closest Emergency Room. Call 911 if necessary. 08/13/24 1608 <Electronically signed by Mich Wheatley DO> Lisseth Signature (if applicable): CC: Dr. Millie Payton MD ~ Signed [facility] Work Phone: 1(774) 957-895806-16-2025 Consult note [facility] Medical Records Department [address] [place] [address] Anesthesia Postop Eval I 08/04/2410 MR#: [id number] Acct: [id number] Name: ALFONSO VERDUGO PASCALE Rep #:[id number] : 1960 64 From: Juancarlos Wheatley PCP: Dr. Millie Payton MD Status:REG [facility] Y Race: C Location: [place] [address] Anesthesia: Postop Eval I Current Vital Signs [...] Juancarlos Montanez Signature: Date CC: ~ Signed [facility]06-16-2025 Procedure note [facility] Medical Records Department [address] [facility] [place] [address] Operative Report - CC Letter MR#: [id number] Acct: [id number] Name: ALFONSO VERDUGO PASCALE Rep #:[id number] : 1960 64 From: Maryellen Lopez MD PCP: Dr. Millie Payton MD Status:REG [facility] 08/04/2024 Millie Payton Re : Colonoscopy procedure [...] MD ~ Date Dictated: 08/04/24726 Date Transcribed: Fire Prevention Specialist: TR Signed [facility]06-16-2025 Procedure note [facility] Medical Records Department [address] [place] [address] Colonoscopy Report MR#: [id number] Acct: [id number] Name: ALFONSO VERDUGO PASCALE Rep #:[id number] : 1960 64 From: Maryellen Lopez MD PCP: Dr. Millie Payton MD Status:REG [facility] Patient Name: Alfonso Verdugo Procedure Date: 08/04/2024 [...] pathology results. Procedure Code(s): --- Professional --- 06234, PT, Colonoscopy, flexible; with removal of tumor(s), polyp(s), or other lesion(s) by snare technique Diagnosis Code(s): --- Professional --- Z86.010, Personal history of colonic polyps D12.4, Benign neoplasm of descending colon Z80.0, Family history of malignant neoplasm of digestive organs CPT copyright 2021 [employer]. All rights reserved. The codes documented in this report are preliminary and upon sponsorship manager review may be revised to meet current compliance requirements. MD Maryellen Ramires MD 08/04/2024 8:03:27 AM This report has been signed electronically. Number of Addenda: 0 Note Initiated On: 08/04/2024 7:27 AM 08/04/24802 Date _ Maryellen Lopez MD Cosigner Signature: Date (if indicated) CC: Dr. Millie Payton MD; Dr. Maryellen Lopez MD ~ Date Dictated: 08/04/24726 Date Transcribed: Fire Prevention Specialist: TR Signed [facility]06-16-2025 History and physical note [facility] Medical Records Department [address] [place] [address] History & Physical Exam 08/04/24719 MR#: [id number] Acct: [id number] Name: ALFONSO VERDUGO PASCALE Rep #:[id number] : 1960 64 From: Maryellen Lopez MD PCP: Dr. Millie Payton MD Status:[facility] Location: [address] - General General Date of Service: 08/04/24 HPI Narrative ALFONSO VERDUGO, is a 64 F who presents for screening colonoscopy due history of colon polyps?tubular adenoma. Patient last colonoscopy was 5 years ago with , about 4 years ago patient's brotherwas diagnosed with colon cancer at age 55.. Patient has bowel movements daily denies any blood. Patient denies any chronic abdominal pain/nausea/vomiting/reflux. [facility] Medical History Wears glasses Wears contact lenses [...] home: Yes additional social history: Remarried to [employer]! 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 Past Medical/Surgical History Planned Operation [...] Rash Discharge Is Pt Admitted From a Longterm, or a Long Term: No After D/C, Where Do you Plan to Go: Return Home From the [facility] History Number of Risk Factors: 4 Vital [...] Payton MD; Dr. Maryellen Lopez MD~ Signed [facility]06-16-[address] [facility] Medical Records Department [address] [place] [address] History Physical Exam 08/04/24 0720 MR#: [id number] Acct: [id number] Name: ALFONSO VERDUGO Rep #: [id number] : 1960 64 From: Maryellen Lopez MD PCP: Dr. Millie Payton MD Status:REG [facility] Location: [facility]12-1 HPI - General General Date of [...] blood. Patient denies any chronic abdominal pain/nausea/vomiting/reflux. [facility] Medical History Wears glasses Wears contact lenses [...] of an Orthopedic Prob (more content not included)...[facility]06-16-2025 Consult note [facility] Medical Records Department [address] [place] [address] Pre-Anesthesia Evaluation 08/04/24 0710 MR#: [id number] Acct: [id number] Name: ALFONSO VERDUGO Rep #:[id number] : 1960 64 From: Do martins CRNA PCP: Dr. Millie Payton MD Status:REG [facility] Y Race: C Location: [place] [address] ASA Classification* ASA Classification ASA Classification: 2 [...] Procedure(s): COLONOSCOPY-OA Anesthesia History Anesthesia History - merchandise team manager: Anesthesia History - merchandise team manager Hx Hospitalization No 07/31/24 10:35 Any Problems [...] take am of surgery PONV PONV - merchandise team manager: PONV - merchandise team manager Female Yes 07/31/24 10:35 HX of Motion [...] 08/04/24 06:48 Respiratory Assessment Respiratory Assessment - merchandise team manager: Respiratory Tract Infection Hx - merchandise team manager Hx Respiratory Tract Infection No 07/31/24 10:35 STOP Sleep Apnea STOP Sleep Apnea - merchandise team manager: STOP Sleep Apnea - merchandise team manager Hx Hypertension No 07/31/24 10:35 Hx Sleep [...] Tobacco Use History Tobacco Use History - merchandise team manager: Tobacco Use History - merchandise team manager Tobacco Use Smoking Status Never smoker 07/31/24 10:35 Hx Tobacco Use No 07/31/24 10:35 Years Smoking Packs Smoked per Day Smoking Cessation Date was within the last 15 years Hx Smoking Cessation Date Hx Smoking Cessation Counseling Hematologic Medial History Hematologic Hx - merchandise team manager: Hematologic Medical Hx - patient services rep Hx of Blood Transfusion No 07/31/24 10:35 [...] confused, unrespo /Reproduction History /Reproductive History - merchandise team manager: /Reproductive Hx- merchandise team manager Hx Now No 07/31/24 10:35 Gestational Age (in weeks): EDC: Hx Hx Para Hx Section SAB No 07/31/24 10:35 Active Medications Active Medications: Current Medications Generic Name Dose Route Start Last Admin Trade Name Marek PRN Reason Stop Dose Admin Lactated Ringer's 1,000 mls @ 30 mls/hr 08/04/24 06:45 08/04/24 06:52 IV 30 mls/hr .[id number] Administration PFSH Medical History Wears glasses [...] complaints, except as documented. 08/04/24 0716 nski AUTO TUNE UP MECHANIC> Date _ Do Gloria AUTO TUNE UP MECHANIC Cosigner Signature: Date CC: ~ Signed [facility]04-11-2025 Evaluation note* Diagnosis Onset Date Resolution Status [...] abdominal pain acute September 01, 2024 11:04am [facility] Work Phone: 1(583) 167-559404-11-2025 Evaluation note* Diagnosis Onset Date Resolution Status [...] gastric surgery acute September 08, 2024 3:47pm [facility] Work Phone: 1(547) 251-905803-12-2025 Evaluation note* Diagnosis Onset Date Resolution Status Admit Date Depression with anxiety acute [facility] 2024 8:32am Obesity (BMI 30.0-34.9) acute [facility] 2024 8:32am Other obesity acute April 30, 2024 8:32am S/P gastric surgery acute April 30, 2024 8:32am Depression with anxiety acute A [facility] 2024 11:27am Goiter acute May 30 11:27am Obesity (BMI 30.0-34.9) acute A [facility] 2024 11:27am Other obesity acute May 30, 2024 11:27am S/P gastric surgery acute May 30, 2024 11:27am Family history of colon cancer acute August 04, 2024 6:25am Hx of colonic polyps acute August 04, 2024 6:25am [facility] Work Phone: 1(888) 346-285803-12-2025 Evaluation note* Diagnosis Onset Date Resolution Status Admit Date Depression with anxiety acute [facility] 2024 8:32am Obesity (BMI 30.0-34.9) acute [facility] 2024 8:32am Other obesity acute April 30, 2024 8:32am S/P gastric surgery acute April 30, 2024 8:32am Depression with anxiety [facility] 2024 11:27am Goiter acute May 30 11:27am Obesity (BMI 30.0-34.9) [facility] 2024 11:27am Other obesity acute May 30, 2024 11:27am S/P gastric surgery acute May 30, 2024 11:27am Family history of colon cancer acute August 04, 2024 6:25am Hx of colonic polyps acute August 04, 2024 6:25am Cholelithiasis acute August 14, 2024 8:59am [facility] Work Phone: 1(107) 519-548603-12-2025 Evaluation note* Diagnosis Onset Date Resolution Status [...] abdominal pain acute August 14, 2024 8:59am [facility] Work Phone: 1(348) 570-456402-02-2025 Consult note Author Juancarlos Wheatley [facility] Note Date/Time August 04, 2024 8:12 am [facility] Medical Records Department [address] [place] [address] Anesthesia Postop Eval I 08/04/24 0810 MR#: [id number] Acct: [id number] Name: ALFONSO VERDUGO PASCALE Rep #:[id number] : 1960 64 From: Juancarlos Wheatley PCP: Dr. Millie Payton MD Status:REG SDC Y Race: C Location: [place] [address] Anesthesia: Postop Eval I Current Vital Signs [...] Wheatley Noeligner Signature: Date CC: ~ Signed [facility] Work Phone: 1(361) 840-158811-13-2023 Miscellaneous Notes* Telephone Encounter - Bo Shipley - 01/01/2023 9:38 AM EST ECHO order faxed to [facility] at [phone]. Bo Shipley documented in this encounter[facility]-07-2023 Miscellaneous Notes* Telephone Encounter - Bo Shipley - 12/26/2022 12:14 PM EST Office notes faxed to Dr. Payton ([phone]) and Dr. Brush's ([phone])offices. Bo Shipley documented in this encounterSelect [facility]11-07-2023 History of Present illness Narrative* Susan Marin - 12/26/2022 10:43 AM EST EVENT MONITOR DISPOSABLE PATCH INSTRUCTIONS Patient Name: Alfonso Verdugo [facility] Number: [id number] Skin prepped and cleansed with alcohol Patch secured to prepped area Monitor Activated Serial #: [id number] Patient Instructed: Prescribed order timeframe Bathing guidelines Usage of event button and diary documentation Return of monitor at the end of prescribed order Call with problems [phone] or [phone]. [phone] Patient expresses a good understanding of instructions Susan Marin documented in this encounterSelect [facility]11-07-2023 Instructions* Patient Instructions* Vinh Kapadia MD - [...] 3rd hand smoke.N/A #5 Weight loss : [place] BMI (Body Mass Index = weight (kg) [...] Face time was minutes. documented in this encounterSelect [facility]11-07-2023 History of Present illness Narrative* Vinh Kapadia MD - 12/26/2022 8:45 AM EST Images from the original note were not included. [facility] [place] [facility] Department of Cardiovascular Medicine SECTION OF CLINICAL CARDIOLOGY OUTPATIENT VISIT DATE December 26, 2022 OUTPATIENT VISIT TYPE NEW PRIMARY CARE PHYSICIAN: Millie Payton (Evelio) [address] [place] [address] REFERRING PHYSICIAN: Millie Campa) [address] [facility] [address] CHIEF COMPLAINT: Abnormal ECG - Cardiac clearance HISTORY OF PRESENT ILLNESS: NURSING INTAKE: Ms. Verdugo is a 62 year old female from [place], [place] here today for cardiovascular evaluation related to abnormal EKG reading. She mentions that before she starts a medication from her TODDLER TEACHER for weight loss, her OB had her get an EKG done which came back abnormal. Her OB wanted her to see cardiology to ensure everything is okay from a cardiac standpoint prior to starting this medication. This isher first time seeing a import export agent. 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 Referred by TODDLER TEACHER for cardiac clearance prior to initiating phentamine [...] 3rd hand smoke.N/A #5 Weight loss : [place] BMI (Body Mass Index = weight (kg) [...] - continue to follow up with PCP, TODDLER TEACHER and RTC as needed Cc: Millie Brush MD CONTACT INFORMATION:Vinh Kapadia M.D, MPH, FACC [place] [facility] of Cardiovascular Medicine [facility] [place] [facility] Desk [place] [address] Office Office Appointments: [phone] documented in this encounterSelect Medical Specialty [facility]08-17-2023 NotePap Smear Specimen AdequacyAugust 2022 11:59pmComment.Satisfactory for evaluation. Endocervical and/or squamous metaplasticcells (endocervical component)are present.[facility] INTER[facility]ACED A#[id number] Osteopathic ClinicComment on above: Satisfactory for evaluation. Endocervical and/or [...] sure are scan is good. Please call [phone] to discuss results and any follow up. * Telephone Encounter - Nancy Cline [facility] - 02/28/2022 9:33 AM EST CV PHONE Name of caller : Alfonso Relationship to patient : Self If not self Will need patient permission to release results or disclose health information with called documented in fyi. Patient identified by Name and Date of . ( Alfonso Verdugo, 1960). Yes Number to return call [phone] Reason for Call: Results: Results Calling office requesting result of MRI test, completed on 02-21-22. Please call patient back at above. Thank you calling [facility] [place]. You will receive a return call within 48hours ( or 2 business days if close to the weekend). If you feel that this is an urgent issue and needs immediate attention, it is recommended that you contact your primary care provider office or proceed to your nearest Urgent Care Center of Emergency Room ED for evaluation/treatment. documented in this encounterSelect [facility]01-03-2023 History of Present illness Narrative* Leticia Alston, [...] 21, 2022 9:38 AM documented in this encounterSelect Medical [facility]ty [facility]09-20-2022 Miscellaneous Notes* Telephone Encounter - Leidy Olsen [...] Verdugo, 1960). Yes Number to return call [phone] Reason for Call : Prior Authorization : Prior Authorization Patient calling to seek Insurance Pre-Authorization number from staff providers office. Patient hasphysical hard copy of order and is attempting to schedule MRI/MRA Brain at [facility] in [facility] but states both the hospital and the insurance company [employer] request a pre-authorization number. Advised patient this would not be the usual process to seek through the doctor's office and provided patient with additional phone number and suggestion for possible solutions but patient would also prefer a call back as well at [phone]. documented in this encounterSelect Medical [facility]ty [facility]08-12-2022 NotePap Smear Specimen AdequacyAugust 2021 4:50pmComment.Satisfactory for evaluation. Endocervical and/or squamous metaplasticcells (endocervical component)are present.[facility] A#[id number] County Community Hospital Work Phone: Comment on above:Satisfactory for evaluation. [...] 09, 2021 11:42 AM documented in this encounterSelect Medical Specialty [facility]06-21-2022 History of Present illness Narrative* Romero Pelletier MD - 08/09/2021 10:00 AM EDT Images from the original note were not included. [facility] Initial Visit Consultation is requested by: SELF PCP: Song Figueroa (Evelio) [address] [place] [address] [place] [address] CEREBROVASCULAR HISTORY Alfonso Verdugo is a 61 [...] Laid down, and saw an ENT in [place], and was given exercises. After 4 days, [...] a 'mini stroke' 03/10/2019 at [facility], after falling and hitting head a [...] results found for: HBA1C IMAGING CT head [facility] CT head 03/19/2019 Patient Entered Questionnaires [...] Noncerebrovascular Concern: Yes Details: Traumatic SDH Modified [place] Score: Score: 0 NIH Stroke Scale: LOC: [...] which included preparing to see the patient, [id number] patient care, completing clinical documentation, obtaining and/or reviewing separately obtained history, performing a medically appropriate examination, counseling and educating the patient/family/caregiver and ordering medications, tests, or procedures SIGNATURE Romero Pelletier M.D. Staff, Cerebrovascular Center August 09, 2021 2:06 PM CC SELF Song Figueroa (Dilan) [address] [place] [address] documented in this encounterSelect [facility] note Author Do Castro [facility] Note Date/Time August 04, 2024 7:16 am [facility] Medical Records Department [address] [place] [address] Pre-Anesthesia Evaluation 08/04/24 0710 MR#: [id number] Acct: [id number] Name: ALFONSO VERDUGO Rep #:[id number] : 1960 64 From: Do martins CRNA PCP: Dr. Millie Payton MD Status:REG SD Y Race: C Location: [place] [address] ASA Classification* ASA Classification ASA Classification: 2 [...] Procedure(s): COLONOSCOPY-OA Anesthesia History Anesthesia History - merchandise team manager: Anesthesia History - merchandise team manager Hx Hospitalization No 07/31/24 10:35 Any Problems [...] take am of surgery PONV PONV - merchandise team manager: PONV - merchandise team manager Female Yes 07/31/24 10:35 HX of Motion [...] 08/04/24 06:48 Respiratory Assessment Respiratory Assessment - merchandise team manager: Respiratory Tract Infection Hx - merchandise team manager Hx Respiratory Tract Infection No 07/31/24 10:35 STOP Sleep Apnea STOP Sleep Apnea - merchandise team manager: STOP Sleep Apnea - merchandise team manager Hx Hypertension No 07/31/24 10:35 Hx Sleep [...] Tobacco Use History Tobacco Use History - merchandise team manager: Tobacco Use History - merchandise team manager Tobacco Use Smoking Status Never smoker 07/31/24 10:35 Hx Tobacco Use No 07/31/24 10:35 Years Smoking Packs Smoked per Day Smoking Cessation Date was within the last 15 years Hx Smoking Cessation Date Hx Smoking Cessation Counseling Hematologic Medial History Hematologic Hx - merchandise team manager: Hematologic Medical Hx - patient services rep Hx of Blood Transfusion No 07/31/24 10:35 [...] confused, unrespo /Reproduction History /Reproductive History - merchandise team manager: /Reproductive Hx- merchandise team manager Hx Now No 07/31/24 10:35 Gestational Age (in weeks): EDC: Hx Hx Para Hx Section SAB No 07/31/24 10:35 Active Medications Active Medications: Current Medications Generic Name Dose Route Start Last Admin Trade Name Freq PRN Reason Stop Dose Admin Lactated Ringer's 1,000 mls @ 30 mls/hr 08/04/24 06:45 08/04/24 06:52 IV 30 mls/hr .[id number] Administration PFS Medical History Wears glasses [...] 08/04/24 0716 <Electronically signed by Do jimenez AUTO TUNE UP MECHANIC> Date _ Do Castro AUTO TUNE UP MECHANIC Cosigner Signature: Date CC: ~ Signed [facility] Work Phone: Evaluation note* Diagnosis Transient diplopia- Primary Diplopia Transient cerebral ischemia, unspecified type documented in this encounter [facility] YoungstownLVL7 Systemsaluation note* Diagnosis Onset Date Resolution Status Depression with anxiety acut e Fecal incontinence acute HPV test positive acute Obesity acute Encounter for routine gynecological examination noneactive [facility] Work Phone: [phone] Systemsaluation note* Diagnosis Onset Date Resolution Status Abnormal Pap smear of cervix acute HPV test positive acute Encounter for routine gynecological examination noneactive [facility] Work Phone: Evaluation note* Diagnosis Onset Date Resolution Status Abnormal Pap smear of cervix acute HPV test positive acute Encounter for routine gynecological examination noneactive Abnormal Pap smear of cervix acute HPV test positive acute [facility] Work Phone: Evaluation note* Diagnosis Transient diplopia Diplopia Transient cerebral ischemia, unspecified type documented in this encounter [place] [facility] note* Diagnosis Abnormal ECG- Primary Nonspecific abnormal electrocardiogram (ECG) (EKG) Encounter for screening for cardiovascular disorders Screening for other and unspecified cardiovascular conditions documented in this encounter [facility] YoungstownRevenewation note* Diagnosis Abnormal ECG- Primary Nonspecific abnormal electrocardiogram (ECG) (EKG) Encounter for screening for cardiovascular disorders Screening for other and unspecified cardiovascular conditions Class 2 obesity due to excess calories without serious comorbidity with body mass index (BMI) of 35.0 to 35.9 in adult Mixed hyperlipidemia documented in this encounter [facility]* Diagnosis Onset Date Resolution Status Abnormal Pap smear of cervix acute HPV test positive acute [facility] Work Phone: History and physical note Author Maryellen Lopez [facility] Note Date/Time August 04, 2024 7:26 am [facility] Medical Records Department [address] [place] [address] History & Physical Exam 08/04/24 0720 MR#: [id number] Acct: [id number] Name: ALFONSO VERDUGO Rep #:[id number] : 1960 64 From: Maryellen Lopez MD PCP: Dr. Millie Payton MD Status:[facility] Location: [place] [address] HPI - General General Date of Service: [...] blood. Patient denies any chronic abdominal pain/nausea/vomiting/reflux. [facility] Medical History Wears glasses Wears contact lenses [...] Rash Discharge Is Pt Admitted From a Longterm, or a Long Term: No After D/C, Where Do you Plan to Go: Return Home From the [facility] History Number of Risk Factors: 4 Vital [...] Payton MD; Dr. Maryellen Lopez MD~ Signed [facility] Work Phone: Hospital Discharge instructions Additional Instructions Call Dr. Roberts office when you are discharged here for your appointment tomorrow. Return with worsening symptoms or concerns.[facility] Work Phone: Reason for referral (narrative)No reason for referral information availableWMercer County Community Hospital Work Phone: Summary Purpose Family History No Family History Records Found Relationship Condition Age at Onset Recorded Date/T bren grandmother Malignant neoplasm of breast Unknown grandfather Diabetes mellitus Unknown Advance Directives No Advanced Directives Records Found Advance Directive Response Recorded Date/ Time Advance Directives No January 5:11pm Living Will No September 17, 2019 12:46pm Power of Energy Sales Consultant No September 16 0 12:46pm Advance Directive Response Recorded Date/ Time Advance Directives No January 4:11pm Living Will No September 17, 2019 11:46am Power of Energy Sales Consultant No September 16 0 11:46am Advance Directive Response Recorded Date/ Time Advance Directives No March 2:30pm Do you have a Healthcare Power of Energy Sales Consultant? No July 31, 2024 10:35am Advance Directive Response Recorded Date/ Time Do you have a Healthcare Power of Energy Sales Consultant? No July 31, 2024 10:35am Do you have a Healthcare Power of Energy Sales Consultant? No August 13, 2024 12:45pm Advance Directives No March 2:30pm Advance Directive Response Recorded Date/ Time Do you have a Healthcare Power of Energy Sales Consultant? No July 31, 2024 10:35am Do you have a Healthcare Power of Energy Sales Consultant? No August 13, 2024 12:45pm Do you have a Healthcare Power of Energy Sales Consultant? No August 20, 2024 9:59pm Advance Directives No March 2:30pm Reason for Referral Specialty Diagnoses / Procedures Referred By Contac t Referred To Contact MR IMAGING Diagnoses Transient diplopia Transient cerebral ischemia, unspecified type Procedures MRA BRAIN WO IVCON MRA, HEAD W/O CONTRAST Romero Pelletier MD [address] [place] [address] Mr Imaging Referral ID Status Reason Start Date Expiration Date Visits Requested Visits Authorized [id number] Pending Review Auto-Generat ed Referral 08/09/2021 09/08/2022 1 1 Specialty Diagnoses / Procedures Referred By Contac t Referred To Contact MR IMAGING Diagnoses Transient diplopia Transient cerebral ischemia, unspecified type Procedures MRI BRAIN WO IVCON MRI BRAIN BRAIN STEM W/O CONTRAST MATERIAL Romero Pelletier MD [address] [place] [address] Mr Imaging Referral ID Status Reason Start Date Expiration Date Visits Requested Visits Authorized [id number] Pending Review Auto-Generat ed Referral 08/09/2021 09/08/2022 1 1 Specialty Diagnoses / Procedures Referred By Contac t Referred To Contact MR IMAGING Diagnoses Transient diplopia Transient cerebral ischemia, unspecified type Procedures MRI BRAIN WO IVCON MRI BRAIN BRAIN STEM W/O CONTRAST MATERIAL Romero Pelletier MD [address] [place] [address] [place] [address] Referral ID Status Reason Start Date Expiration Date V isits Requested Visits Authorized [id number] Closed Auto-Generate d Referral 11/07/2021 05/06/2022 1 1 Specialty Diagnoses / Procedures Referred By Contac t Referred To Contact Procedures CARDIOVASCULAR MEDICINE OP FOLLOW UP APPT ORDER Vinh Kapadia MD [address] [place] [address] Referral ID Status Reason Start Date Expiration Date Visits Requested Visits Authorized [id number] Ref Not Required PCP Requested Referral 12/26/2022 12/26/2023 1 1 Specialty Diagnoses / Procedures Referred By Jeremiah jones Referred To Contact [facility] [place] Diagnoses Abnormal ECG Encounter for screening for cardiovascular disorders Procedures ECHO ECHO TTHRC R-T 2D W/WOM-MODE COMPL SPEC&COLR D Vinh Kapadia MD [address] [place] [address] [address] Referral ID Status Reason Start Date Expiration Date Visits Requested Visits Authorized [id number] Pending Review Auto-Generat ed Referral 12/26/2022 12/26/2023 1 1 Chief Complaint and Reason for Visit Chief Complaint SCREENING Annual (TODDLER TEACHER) Reason for Visit Depression with anxi ety Fecal incontinence HPV test positive Obesity Encounter for routine gynecological examination Chief Complaint SCREENING Annual (TODDLER TEACHER) ABN MAMM Reason for Visit Depression with anxi ety Fecal incontinence HPV test positive Obesity Encounter for routine gynecological examination Chief Complaint Annual (TODDLER TEACHER) Reason for Visit Abnormal Pap smear o f cervix HPV test positive Encounter for routine gynecological examination Chief Complaint Annual (TODDLER TEACHER) SCREENING Colposcopy Body mass index [BMI] 37.0-37.9, [...] section and content) DATE CREATED AUTHOR 10/14/2020 [facility] DATE CREATED AUTHOR AUTHOR'S ORGANIZ ATION 12/30/2023 [facility] DATE CREATED AUTHOR AUTHOR'S ORGANIZ ATION 01/23/2024 [facility] DATE CREATED AUTHOR AUTHOR'S ORGANIZ ATION 07/18/2024 [facility] DATE CREATED AUTHOR AUTHOR'S ORGANIZ ATION 09/16/2024 [facility] Source Comments (unrecognize d section and content) In the event this informatio n is protected by the Federal Confidentiality of Alcohol and Drug Abuse Patient Records regulations: The Federal rules restrict any use of the information to criminally investigate or prosecute any alcohol or drug abuse patient.[facility] YoungstownIn the event this information is protected by the Federal Confidentiality of Alcohol and Drug Abuse Patient Records regulations: The Federal rules restrict any use of the information to criminally investigate or prosecute any alcohol or drug abuse patient.[facility] YoungstownIn the event this information is protected by the Federal Confidentiality of Alcohol and Drug Abuse Patient Records regulations: The Federal rules restrict any use of the information to criminally investigate or prosecute any alcohol or drug abuse patient.[facility] YoungstownIn the event this information is protected by the Federal Confidentiality of Alcohol and Drug Abuse Patient Records regulations: The Federal rules restrict any use of the information to criminally investigate or prosecute any alcohol or drug abuse patient.[facility] YoungstownIn the event this information is protected by the Federal Confidentiality of Alcohol and Drug Abuse Patient Records regulations: The Federal rules restrict any use of the information to criminally investigate or prosecute any alcohol or drug abuse patient.[facility] YoungstownIn the event this information is protected by the Federal Confidentiality of Alcohol and Drug Abuse Patient Records regulations: The Federal rules restrict any use of the information to criminally investigate or prosecute any alcohol or drug abuse patient.[facility] YoungstownIn the event this information is protected by the Federal Confidentiality of Alcohol and Drug Abuse Patient Records regulations: The Federal rules restrict any use of the information to criminally investigate or prosecute any alcohol or drug abuse patient.[facility] YoungstownIn the event this information is protected by the Federal Confidentiality of Alcohol and Drug Abuse Patient Records regulations: The Federal rules restrict any use of the information to criminally investigate or prosecute any alcohol or drug abuse patient.[facility] Reason for Visit (unrecogniz ed section and content) Reason Comments New Patient Evaluation Specialty Diagnoses / Procedures Referred By Contact Referred To Contact Neurology / CEREBROVASCULAR Diagnoses Brain bleed (HCC) 9fell hit brain bleed now eposides where left eye wanders Procedures OFFICE/OUTPATIENT NEW MODERATE MDM 45-59 MINUTES NEW NI MEDICAL Self Romero Pelletier MD [address] [place] [address] Referral ID Status Reason Start Date Expiration Date V isits Requested Visits Authorized [id number] Authorized 07/22/2021 07/22/2022 4 4 Reason Comments Insurance Authorization / Imaging Order Reason Comments Results MRI Specialty Diagnoses / Procedures Referred By Contac t Referred To Contact MR IMAGING Diagnoses Transient diplopia Transient cerebral ischemia, unspecified type Procedures MRI BRAIN WO IVCON MRI BRAIN BRAIN STEM W/O CONTRAST MATERIAL Romero Pelletier MD [address] [place] [id number] Mr Imaging [facility] Referral ID Status Reason Start Date Expiration Date V isits Requested Visits Authorized [id number] Closed Auto-Generate d Referral 11/07/2021 05/06/2022 1 1 Reason Comments Event ZIO PATCH Reason Comments Release Of Medical Records Reason Comments Orders Care Teams (unrecognized sec tion and content) Community Services Coordinator Relationship Specialty Start Date End Date Millie Payton MD [address] [place] [address] [place] [address] PCP - General Internal Medicine 08/09/21 Community Services Coordinator Relationship Specialty Start Date End Date Millie Payton MD [address] [place] [phone] PCP - General Internal Medicine 08/09/21 Team [...] MD Attending Provider, Referr ing Provider Active Community Services Coordinator Relationship Specialty Start Date End Date Millie Payton MD [address] [place] [phone] PCP - General Internal Medicine 08/09/21 Community Services Coordinator Relationship Specialty Start Date End Date Millie Payton MD [address] [facility] [address] [place] [phone] PCP - General Internal Medicine 08/09/21 Vinh Kapadia MD [address] [place] [address] Primary Staff Physician Cardiology 12/26/22 Community Services Coordinator Relationship Specialty Start Date End Date Millie Payton MD [address] [facility] [address] [place] [phone] PCP - General Internal Medicine 08/09/21 Vinh Kapadia MD [address] [place] [address] Primary Staff Physician Cardiology 12/26/22 Community Services Coordinator Relationship Specialty Start Date End Date Millie Payton MD [address] [facility] [address] [place] [phone] PCP - General Internal Medicine 08/09/21 Vinh Kapadia MD [address] [place] [address] Primary Staff Physician Cardiology 12/26/22 Team Status: [...] 2024 End: September 08, 2024 ARSALAN Guzmán Attending Provider [...] BE BASED ON THE PRIMARY CLINICAL RECORDS. [facility] [employer] [facility]. provides no warranty or guarantee of the accuracy or completeness of information in this document.
--- OUTSIDE RECORDS SUMMARY | 2024-09-26 09:36 | XMS RPT_ITS | CCD ---
Author Organization [facility] CliniSysd Care Team Providers Care Agency Legal Counsel Name Role Phone Tata MA, Millie Primary Care Provider Dr. Millie Payton Primary Care Provider Tata, Dr. Vela Referring Provider [phone] Dr. Rose Marie Brush Attending Provider [phone] Millie Payton MD Primary Care Provider Tata MA, Millie Primary Care Provider Dr. Millie Payton Primary Care Provider Dr. Millie Payton Referring Provider Dr. Rose Marie Brush Attending Provider Tata MA, Millie Primary Care Provider Kang MA, Chete Unavailable Dr. Millie Payton Primary Care Provider Dr. Millie Payton Referring Provider [phone] Dr. Rose Marie Brush Attending Provider Dr. Jeffery Rose Attending Provider Dr. Rose Marie Bursh Referring Provider MILLIE PAYTON Referring Unavailable MILLIE [...] Provider Dr. Mich Wheatley DO Attending Provider Haryr MA, Dr. Cortez Referring Provider aHrry MA, Dr. Cortez Emergency Provider Dr. Millie Payton MD Primary Care Provider Dr. Millie Payton MD Referring Provider Dr. Rose Marie Brush MD Attending Provider Harry MA, Dr. Cortez Attending Provider Drake BRAKE REPAIRER AIR-C, Naty Attending Provider Vidal BRAKE REPAIRER AIR-C, Naty Referring Provider Latouf, Butros Primary Care [...] sources) Penicillins; Translations: [PENICILLINS] Drug Intolerance 6 [facility] (10 sources) Sulfonamides (Antibiotic); Translations: [SULFA (SULFONAMIDE ANTIBIOTICS)] Drug Allergy 3 Rash, Itching [facility] (12 sources) Penicillins Propensity to adverse reactions 1 [facility] (12 sources) Sulfonamides (Antibiotic) Propensity to adverse reactions 1 [facility] (7 sources) Penicillins Drug Intolerance 6 [facility] (1 source) Penicillin Drug Allergy [facility] (1 source) Sulfonamides (Antibiotic) Drug allergy (disorder) [facility] (1 source) Penicillins Drug allergy (disorder) 5 [facility] (1 source) Sulfonamides (Antibiotic) Drug allergy (disorder) 5 [facility] Medications Current Medications Medication Drug Class(es) [...] 29, 2014 12:00am March 31, 2019 8:47am [id number] 200 actuat albuterol 0.09 mg/actuat metered dose [...] Comment on above: Take 1 capsule by [facility] three times daily as needed. ciprofloxacin 500 [...] [address] 25 ug/g Normal 0-120 [facility] Comment on above: Result Comment: Conc entration Interpretation Follow-Up < 5 - 50 ug/g Normal None >50 -120 ug/g Borderline Re-evaluate in 4-6 weeks >120 ug/g Abnormal Repeat as clinically indicated Performed at: [employer] [facility] [id number] Medical Insurance Coding Specialist: Mayela Ceja MD, Phone: [phone] Performed By: #### L 7000.0700 #### [facility] [address] [facility] [address], [address] Calprotectin stoolOrdered By : Naty Drake on 09-08-2024 Calprotectin stool 25 ug/g 0-120 [facility] Comment on above: Concentration Interp retation Follow-Up< 5 - 50 ug/g Normal None>50 -120 ug/g Borderline Re-evaluate in 4-6 weeks >120 ug/g Abnormal Repeat as clinically indicatedPerformed at: - [facility] [id number] Director: Mayela Ceja MD, Phone: [phone] Mold Tooling Technician Office Visit Reporton 09-08-2024 Mold Tooling Technician Office Visit Report [facility] [address], [address] [place] [address] OFFICE VISIT Date of Service: 09/08/24 MR#: [id number] Acct: [id number] Name: ALFONSO VERDUGO Rep #: [id number] : 1960 Provider: Dr. Rose Marie florez MD Age/Sex: 64/F [place] [facility] [place]: Signed Intake Vital Signs 05/30/24 11:34 08/20/24 21:14 09/08/24 15:51 09/08/24 15:57 Height 5 ft 6 in 5 ft 6 in 5 ft 6 in 5 ft 6 in Weight: 214 lb BMI 34.5 BP 132/80 H Pulse 88 Intake Visit Reasons: 3 M FU *copay $20 Bench Examiner Required: No Is patient in pain?: No [...] home: Yes additional social history: Remarried to [employer]! 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 History 3 Elective abortions Hx Para 2 Spontaneous abortions 1 Hx # Term Pregnancies Ectopic pregnancies Hx # Pregnancies Multiple births # of living children Past Pregnancies Del. Date Name GA/Weeks Outcome Route Bth Weight Gen [facility] FOB Unknown Vasyl-1989 Unknown Yobany-1993 [...] managment medications. she has a trip to [place] to help her son move coming up. [...] weight rega (more content not included)... Normal [facility] Gastroenterology Visit Repor ton 09-01-2024 Gastroenterology Visit Report [facility] [address] [place] [address] OFFICE VISIT Date of Service: 09/01/24 MR#: [id number] Acct: [id number] Name: ALFONSO VERDUGO PASCALE Rep #: [id number] : 1960 Provider: ARSALAN verdin Age/Sex: 64/F [place] [facility] Status: Signed Intake Vital Signs 08/20/24 21:14 [...] cap PO Q24H 08/20/24 09/01/24 History mg capsule,ext.tymfdkv28ib multphas (Qsymia) dicyclomine 10 mg capsule 10 [...] home: Yes additional social history: Remarried to [employer]! 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 [employer] History Menstrual Ab spontaneous: 1 HPI HPI Chief Complaint: ED f/u- gallstones Details: ALFONSO VERDUGO, is a 64 F who presents to the office today for establishment with [facility] regarding right sided abdominal pain that radiates [...] with 1 polyp removed and called the air transportation provider office and they state that she should not still be having pain from this. They advised her to go to the emergency department to be evaluated. Patient also notes that she is going on vacation next (more content not included)... Normal [facility] Abdomen/Pelvis W IV Cont ONL Yon 08-20-2024 Abdomen/Pelvis W IV Cont ONLY [facility] [address] [place], [place] [address] Abdomen/Pelvis W IV Cont ONLY MR#: [id number] Acct: [id number] Name: ALFONSO VERDUGO Rep #: [id number] : 1960 F 64 From: Blue Lombardo MD PCP: Dr. Millie Payton MD Status: REG ER Study: Abdomen/Pelvis W IV Cont ONLY Date of Exam: Exam# [id number] Ordering Dr: Diego Mcdonald MD PROCEDURE: ABDOMEN/PELVIS [...] secondary to infection. Advise correlation. Reading Location: [place] [address] CC: Dr. Millie Payton MD; Dr. Diego Mcdonald MD Hazardous Waste Remover: Signed Normal [facility] Absolute lymphocyte countOrd ered By: Diegoana Mcdonald on 08-20-2024 Lymphocytes Auto (Unsp spec) [#/Vol] 2.03 10*3/uL 0.83-4.51 [facility] Absolute neutrophil countOrd ered By: [facility] 08-[facility]24 Neutrophils (Bld) [#/Vol] 5.6 10*3/uL 2.0-7.7 [facility] Anion gap in Serum or Plasma Ordered By: [facility] on 08-20-2024 Anion gap [Moles/Vol] 10 mmol/L 5-15 [facility] Automated lymphocyte count a s percentage of total leukocytesOrdered By: [facility] Harry on 08-20-2024 Lymphocytes/100 WBC Auto (Unsp spec) 24.2 % 19-41 [facility] BUN/creatinine ratioOrdered By: [facility] on 08-20-2024 Urea nitrogen/Creatinine [Mass ratio] 29.0 mg/mg High 10- [facility] Basic Metabolic Profile (BMP )on 08-20-2024 BUN/CRE 29.0 RATIO High 12-08 [facility] Comment on above: Performed By: #### L 100.0100, L500.2500 #### [facility] [place], [address] Calcium [Mass/Vol] 8.9 mg/dL Normal 7.6-11.0 [facility] Comment on above: Performed By: #### L 100.0100, L500.2500 #### [facility] [address] [place], [address] Chloride [Moles/Vol] 106 mmol/L Normal 98-108 [facility] Comment on above: Performed By: #### L 100.0100, L500.2500 #### [facility] [address] [place], [address] CO2 [Moles/Vol] 23.6 mmol/L Normal 21.0-32.0 [facility] Comment on above: Performed By: #### L 100.0100, L500.2500 #### [facility] [address] [place], [address] Creatinine [Mass/Vol] 0.74 mg/dL Normal 0.70-1.20 [facility] Comment on above: Performed By: #### L 100.0100, L500.2500 #### [facility] [address] [place], [address] GAP 10 Normal 5-15 [facility] Comment on above: Performed By: #### L 100.0100, L500.2500 #### [facility] [address] [place], [address] GFR/1.73 sq M.predicted among non-blacks MDRD (S/P/Bld) [Vol rate/Area] 92 mL/min/{1.73_m2} Normal >60 [facility] Comment on above: Result Comment: mL/m in/1.73m2 CKD-EPI Creatinine Equation (2020) Performed By: #### L 100.0100, L500.2500 #### [facility] [address] [place], [address] Glucose [Mass/Vol] 100 mg/dL High 70-99 [facility] Comment on above: Performed By: #### L 100.0100, L500.2500 #### [facility] [address] [place], [address] Potassium [Moles/Vol] 4.1 mmol/L Normal 3.3-5.1 [facility] Comment on above: Performed By: #### L 100.0100, L500.2500 #### [facility] [address] [place], [address] Sodium [Moles/Vol] 140 mmol/L Normal 133-145 [facility] Comment on above: Performed By: #### L 100.0100, L500.2500 #### [facility] [address] [place], [address] Urea nitrogen [Mass/Vol] 21 mg/dL High 4-19 [facility] Comment on above: Performed By: #### L 100.0100, L500.2500 #### [facility] [address] [place], [address] Basophil percentageOrdered B y: Diego Mcdonald on 08-20-2024 Basophils/100 WBC (Bld) 0.6 % 0-1 [facility] CBC W/Diff, Automatedon 07-0 Absolute Lymph 2.03 X10 3/uL Normal 0.83-4.51 [facility] Comment on above: Performed By: #### L 100.0100, L500.2500 #### [facility] [address] [place], [address] Absolute Neut 5.6 X10 3/uL Normal 2.0-7.7 [facility] Comment on above: Performed By: #### L 100.0100, L500.2500 #### [facility] [address] [place], [address] Basophils/100 WBC (Bld) 0.6 % Normal 0-1 [facility] Comment on above: Performed By: #### L 100.0100, L500.2500 #### [facility] [address] [place], [address] Eosinophils/100 WBC (Bld) 1.4 % Normal 0-5 [facility] Comment on above: Performed By: #### L 100.0100, L500.2500 #### [facility] [address] [place], [address] Erythrocyte distribution width (RBC) [Ratio] 15.0 % High 11.6-14.6 [facility] Comment on above: Performed By: #### L 100.0100, L500.2500 #### [facility] [address] [place], [address] Hematocrit (Bld) [Volume fraction] 40.9 % Normal 37-47 [facility] Comment on above: Performed By: #### L 100.0100, L500.2500 #### [facility] [address] [place], [address] Hemoglobin (Bld) [Mass/Vol] 13.0 g/dL Normal 12.0-15.0 [facility] Comment on above: Performed By: #### L 100.0100, L500.2500 #### [facility] [address] [place], [address] IG% 0.200 Normal 0.0-0.9 [facility] Comment on above: Result Comment: IG% - Immature Granulocytes (promyelocytes, myelocytes and metamyelocytes) > 1% indicates that a LEFT SHIFT is Present. Performed By: #### L 100.0100, L500.2500 #### [facility] [address] [place], [address] Lymphocytes/100 WBC (Bld) 24.2 % Normal 19-41 [facility] Comment on above: Performed By: #### L 100.0100, L500.2500 #### [facility] [address] [place], [address] MCH (RBC) [Entitic mass] 27.8 pg Normal 27.0-32.0 [facility] Comment on above: Performed By: #### L 100.0100, L500.2500 #### [facility] [address] [place], [address] MCHC (RBC) [Mass/Vol] 31.8 g/dL Low 32-36 [facility] Comment on above: Performed By: #### L 100.0100, L500.2500 #### [facility] [address] [place], [address] MCV (RBC) [Entitic vol] 87.4 fL Normal 81-99 [facility] Comment on above: Performed By: #### L 100.0100, L500.2500 #### [facility] [address] [place], [address] Monocytes/100 WBC (Bld) 7.2 % Normal 0-10 [facility] Comment on above: Performed By: #### L 100.0100, L500.2500 #### [facility] [address] [place], [address] Neutrophils/100 WBC (Bld) 66.4 % Normal 47-70 [facility] Comment on above: Performed By: #### L 100.0100, L500.2500 #### [facility] [address] [place], [address] Nucleated RBC (Bld) [#/Vol] 0 10*3/uL Normal 0-5 [facility] Comment on above: Performed By: #### L 100.0100, L500.2500 #### [facility] [address] [place], [address] Platelet mean volume (Bld) [Entitic vol] 10.2 fL Normal 6.2-12.0 [facility] Comment on above: Performed By: #### L 100.0100, L500.2500 #### [facility] [address] [place], [address] Platelets (Bld) [#/Vol] 330 10*3/uL Normal 150-450 [facility] Comment on above: Performed By: #### L 100.0100, L500.2500 #### [facility] [address] [place], [address] RBC (Bld) [#/Vol] 4.68 10*6/uL Normal 4.2-5.4 [facility] Comment on above: Performed By: #### L 100.0100, L500.2500 #### [facility] [address] [place], [address] RDW SD 48.1 fl High 35.1-43.9 [facility] Comment on above: Performed By: #### L 100.0100, L500.2500 #### [facility] [address] [place], [address] WBC (Bld) [#/Vol] 8.4 10*3/uL Normal 4.4-11.0 [facility] Comment on above: Performed By: #### L 100.0100, L500.2500 #### [facility] [address] [place], [address] Carbon dioxide, total [Moles /volume] in Central venous bloodOrdered By: Diegoana Mcdonald on 08-20-2024 CO2 [Moles/Vol] 23.6 mmol/L 21.0-32.0 [facility] Chloride assayOrdered By: Ug o Mcdonald on 08-20-2024 Chloride [Moles/Vol] 106 mmol/L 98-108 [facility] Emergency Department Summary on 08-20-2024 Emergency Department Summary [facility] Medical Records Department [address] [place] [address] Emergency Department Summary 08/20/24 MR#: [id number] Acct: [id number] Name: ALFONSO VERDUGO #: [id number] : 1960 64 From: Diego Mcdonald MD [...] PO Q24H 08/20/24 Unknown H istory mg capsule,ext.qvsakpt74ul multphas (Qsymia) Allergy/AdvReac Type Severity Reaction Status [...] 97 Oxygen Delivery Method Room Air MDM [facility] Lab Data Attestation: I reviewed the patient's [...] % (Auto) 66.4 Lymph % (Auto) 24.2 [place] % (Auto) 7.2 Eos % (Auto) 1.4 [...] secondary to infection. Advise correlation. Reading Location: [facility] CT of the abdomen pelvis with IV [...] treat with ciprofloxacin and metronidazole. Will have forging machine hand schedule appointment to see Dr. Bess after [...] 14 0RF (more content not included)... Normal [facility] Eosinophil percentageOrdered By: Diego Mcdonald on 08-20-2024 Eosinophils/100 WBC (Bld) 1.4 % 0-5 [facility] Erythrocyte distribution wid th ratioOrdered By: Diegoana Mcdonald on 08-20-2024 Erythrocyte distribution width (RBC) [Ratio] 15.0 % High 11.6-14.6 [facility] Erythrocyte distribution wid th standard deviationOrdered By: Diegoana Mcdonald on 08-20-2024 Erythrocyte distribution width (RBC) [Ratio] 48.1 fl High 35.1-43.9 [facility] Glomerular filtration rate ( GFR) estimation/1.73 sq m using serum, plasma, or whole bOrdered By: Diegoana Mcdonald on 08-20-2024 GFR/1.73 sq M.predicted among non-blacks MDRD (S/P/Bld) [Vol rate/Area] 92 mL/min/{1.73_m2} >60 [facility] Comment on above: mL/min/1.73m2 CKD-EP I Creatinine Equation (2020) Hematocrit Auto (Bld) [Volum e fraction]Ordered By: Diego Mcdonald on 08-20-2024 Hematocrit (Bld) [Volume fraction] 40.9 % 37-47 [facility] Hemoglobin measurementOrdere d By: Diegoana Mcdonald on 08-20-2024 Hemoglobin (Bld) [Mass/Vol] 13.0 g/dL 12.0-15.0 [facility] Immature granulocytes/100 WB C Auto (Bld)Ordered By: Diego Mcdonald on 08-20-2024 Immature granulocytes/100 WBC (Bld) 0.200 % 0.0-0.9 [facility] Comment on above: IG% - Immature Granu locytes (promyelocytes, myelocytes and metamyelocytes) > 1% indicates that a LEFT SHIFT is Present. MCV (mean corpuscular volume ) determinationOrdered By: Diego Mcdonald on 08-20-2024 MCV (RBC) [Entitic vol] 87.4 fL 81-99 [facility] Mean corpuscular hemoglobin (MCH) determinationOrdered By: Diegoana Mcdonald on 08-20-2024 MCH (RBC) [Entitic mass] 27.8 pg 27.0-32.0 [facility] Mean corpuscular hemoglobin concentration (MCHC) determinationOrdered By: Diegoana Mcdonald on 08-20-2024 MCHC (RBC) [Mass/Vol] 31.8 g/dL Low 32-36 [facility] Mean platelet volume determi nationOrdered By: Diegoana Mcdonald on 08-20-2024 Platelet mean volume (Bld) [Entitic vol] 10.2 fL 6.2-12.0 [facility] Monocyte percentageOrdered B y: Diegoana Mcdonald on 08-20-2024 Monocytes/100 WBC (Bld) 7.2 % 0-10 [facility] Neutrophil percentageOrdered By: Diegonaa Mcdonald on 08-20-2024 Neutrophils/100 WBC (Bld) 66.4 % 47-70 [facility] Nucleated red blood cell per centageOrdered By: Diegoana Mcdonald on 08-20-2024 Nucleated RBC/100 WBC (Bld) [Ratio] 0 % 0-5 [facility] Platelet countOrdered By: [facility] Mcdonald on 08-20-2024 Platelets (Bld) [#/Vol] 330 10*3/uL 150-450 [facility] Potassium measurement (mass/ volume)Ordered By: Diegoana Mcdonald on 08-20-2024 Potassium (Unsp spec) [Mass/Vol] 4.1 mmol/L 3.3-5.1 [facility] RBC Auto (Bld) [#/Vol]Ordere d By: Diegoana Mcdonald on 08-20-2024 RBC (Bld) [#/Vol] 4.68 10*6/uL 4.2-5.4 [facility] Serum creatinine measurement (mass/volume)Ordered By: Diegoana Mcdonald on 08-20-2024 Creatinine [Mass/Vol] 0.74 mg/dL 0.70-1.20 [facility] Serum glucose measurement (m ass/volume)Ordered By: [facility] on 08-20-2024 Glucose [Mass/Vol] 100 mg/dL High 70-99 [facility] Serum or plasma calcium alisa urement (mass/volume)Ordered By: [facility] on 08-20-2024 Calcium [Mass/Vol] 8.9 mg/dL 7.6-11.0 [facility] Serum or plasma urea nitroge n measurement (mass/volume)Ordered By: [facility] on 08-20-2024 Urea nitrogen [Mass/Vol] 21 mg/dL High 4-19 [facility] Sodium levelOrdered By: [facility] on 08-20-2024 Sodium [Moles/Vol] 140 mmol/L 133-145 [facility] White blood cell (WBC) count Ordered By: [facility] on 08-20-2024 WBC (Bld) [#/Vol] 8.4 10*3/uL 4.4-11.0 [facility] Surgery Visit Reporton 08-14 Surgery Visit Report [facility] [address] [place] [address] OFFICE VISIT Date of Service: 08/14/24 MR#: [id number] Acct: [id number] Name: ALFONSO VERDUGO Rep #: [id number] : 1960 Provider: Dr. Jeet hurley MD Age/Sex: 64/F Location[facility] Status: Signed Intake Vital Signs 08/13/24 [...] Const General: cooperative, healthy appearing and comfortable [facility] Head: normal to inspection Eyes General: appearance normal, both eyes and all related structures Neck Neck: normal visua (more content not included)... Normal [facility] Abdomen Limitedon 08-13-2024 Abdomen Limited [facility] [address] [place], [place] [address] Abdomen Limited MR#: [id number] Acct: [id number] Name: ALFONSO VERDUGO Rep #: [id number] : 1960 F 64 From: Landon Camara PCP: Dr. Millie Payton MD Status: REG ER Study: Abdomen Limited Date of Exam: 08/13/24 Exam# [id number] Ordering Dr: Mich Wheatley DO PROCEDURE: ABDOMEN [...] acute cholecystitis. Nonspecific echogenic pancreas. Reading Location: [facility] CC: Dr. Millie Payton MD; Dr. Mich Wheatley DO Hazardous Waste Remover: Signed Normal [facility] Absolute lymphocyte countOrd ered By: Mich Wheatley on 08-13-2024 Lymphocytes Auto (Unsp spec) [#/Vol] 1.87 10*3/uL 0.83-4.51 [facility] Absolute neutrophil countOrd ered By: Mich Wheatley on 08-13-2024 Neutrophils (Bld) [#/Vol] 3.6 10*3/uL 2.0-7.7 [facility] Anion gap in Serum or Plasma Ordered By: Mich Wheatley on 08-13-2024 Anion gap [Moles/Vol] 12 mmol/L 5-15 [facility] Automated lymphocyte count a s percentage of total leukocytesOrdered By: Mich Wheatley on 08-13-2024 Lymphocytes/100 WBC Auto (Unsp spec) 31.3 % 19-41 [facility] BUN/creatinine ratioOrdered By: Mich Wheatley on 08-13-2024 Urea nitrogen/Creatinine [Mass ratio] 22.5 mg/mg High 10-20 [facility] Basophil percentageOrdered B y: Mich Wheatley on 08-13-2024 Basophils/100 WBC (Bld) 0.7 % 0-1 [facility] Bilirubin Test strip Ql (U)O rdered By: Mich Wheatley on 08-13-2024 Bilirubin Ql (U) Negative Negative [facility] Bilirubin, totalOrdered By: Mich Wheatley on 08-13-2024 Bilirubin [Mass/Vol] 0.33 mg/dL 0.00-1.30 [facility] CBC W/Diff, Automatedon 06-2 -2024 Absolute Lymph 1.87 X10 3/uL Normal 0.83-4.51 [facility] Comment on above: Performed By: #### L 501.2450, L500.4050, L100.0100 ####[facility] [address] [place], [address] Absolute Neut 3.6 X10 3/uL Normal 2.0-7.7 [facility] Comment on above: Performed By: #### L 501.2450, L500.4050, L100.0100 ####[facility] [address] [place], [address] Basophils/100 WBC (Bld) 0.7 % Normal 0-1 [facility] Comment on above: Performed By: #### L 501.2450, L500.4050, L100.0100 ####[facility] [address] [place], [address] Eosinophils/100 WBC (Bld) 2.2 % Normal 0-5 [facility] Comment on above: Performed By: #### L 501.2450, L500.4050, L100.0100 ####[facility] [address] [place], [address] Erythrocyte distribution width (RBC) [Ratio] 15.0 % High 11.6-14.6 [facility] Comment on above: Performed By: #### L 501.2450, L500.4050, L100.0100 ####[facility] [address] [place], [address] Hematocrit (Bld) [Volume fraction] 43.2 % Normal 37-47 [facility] Comment on above: Performed By: #### L 501.2450, L500.4050, L100.0100 ####[facility] [address] [place], [address] Hemoglobin (Bld) [Mass/Vol] 13.5 g/dL Normal 12.0-15.0 [facility] Comment on above: Performed By: #### L 501.2450, L500.4050, L100.0100 ####[facility] [address] [place], [address] IG% 0.300 Normal 0.0-0.9 [facility] Comment on above: Result Comment: IG% - Immature Granulocytes (promyelocytes, myelocytes and metamyelocytes) > 1% indicates that a LEFT SHIFT is Present. Performed By: #### L 501.2450, L500.4050, L100.0100 ####[facility] [address] [place], [address] Lymphocytes/100 WBC (Bld) 31.3 % Normal 19-41 [facility] Comment on above: Performed By: #### L 501.2450, L500.4050, L100.0100 ####[facility] [address] [place], [address] MCH (RBC) [Entitic mass] 27.7 pg Normal 27.0-32.0 [facility] Comment on above: Performed By: #### L 501.2450, L500.4050, L100.0100 ####[facility] [address] [place], [address] MCHC (RBC) [Mass/Vol] 31.3 g/dL Low 32-36 [facility] Comment on above: Performed By: #### L 501.2450, L500.4050, L100.0100 ####[facility] [address] [place], [address] MCV (RBC) [Entitic vol] 88.5 fL Normal 81-99 [facility] Comment on above: Performed By: #### L 501.2450, L500.4050, L100.0100 ####[facility] [address] [place], [address] Monocytes/100 WBC (Bld) 6.0 % Normal 0-10 [facility] Comment on above: Performed By: #### L 501.2450, L500.4050, L100.0100 ####[facility] [address] [place], [address] Neutrophils/100 WBC (Bld) 59.5 % Normal 47-70 [facility] Comment on above: Performed By: #### L 501.2450, L500.4050, L100.0100 ####[facility] [address] [place], [address] Nucleated RBC (Bld) [#/Vol] 0 10*3/uL Normal 0-5 [facility] Comment on above: Performed By: #### L 501.2450, L500.4050, L100.0100 ####[facility] [address] [place], [address] Platelet mean volume (Bld) [Entitic vol] 10.6 fL Normal 6.2-12.0 [facility] Comment on above: Performed By: #### L 501.2450, L500.4050, L100.0100 ####[facility] [address] [place], [address] Platelets (Bld) [#/Vol] 306 10*3/uL Normal 150-450 [facility] Comment on above: Performed By: #### L 501.2450, L500.4050, L100.0100 ####[facility] [address] [place], [address] RBC (Bld) [#/Vol] 4.88 10*6/uL Normal 4.2-5.4 [facility] Comment on above: Performed By: #### L 501.2450, L500.4050, L100.0100 ####[facility] [address] [place], [address] RDW SD 48.9 fl High 35.1-43.9 [facility] Comment on above: Performed By: #### L 501.2450, L500.4050, L100.0100 ####[facility] [address] [place], [address] WBC (Bld) [#/Vol] 6.0 10*3/uL Normal 4.4-11.0 [facility] Comment on above: Performed By: #### L 501.2450, L500.4050, L100.0100 ####[facility] [address] [place], [address] Carbon dioxide, total [Moles /volume] in Central venous bloodOrdered By: Mich Wheatley on 08-13-2024 CO2 [Moles/Vol] 24.2 mmol/L 21.0-32.0 [facility] Chloride assayOrdered By: Syed Wheatley on 08-13-2024 Chloride [Moles/Vol] 104 mmol/L 98-108 [facility] Comprehensive Metabolic Prof ilon 08-13-2024 Albumin [Mass/Vol] 4.0 g/dL Normal 3.4-4.8 [facility] Comment on above: Performed By: #### L 501.2450, L500.4050, L100.0100 ####[facility] [address] [place], [address] Albumin/Globulin [Mass ratio] 1.3 {ratio} Normal 0.9-2.4 [facility] Comment on above: Performed By: #### L 501.2450, L500.4050, L100.0100 ####[facility] [address] [place], [address] ALK PHOS 113 U/L High 35-104 [facility] Comment on above: Performed By: #### L 501.2450, L500.4050, L100.0100 ####[facility] [address] [place], [address] ALT [Catalytic activity/Vol] 12 U/L Normal <=34 [facility] Comment on above: Performed By: #### L 501.2450, L500.4050, L100.0100 ####[facility] [address] [place], [address] AST [Catalytic activity/Vol] 18 U/L Normal <=31 [facility] Comment on above: Performed By: #### L 501.2450, L500.4050, L100.0100 ####[facility] [address] [place], [address] Bilirubin [Mass/Vol] 0.33 mg/dL Normal 0.00-1.30 [facility] Comment on above: Performed By: #### L 501.2450, L500.4050, L100.0100 ####[facility] [address] [place], [address] BUN/CRE 22.5 RATIO High 10-20 [facility] Comment on above: Performed By: #### L 501.2450, L500.4050, L100.0100 ####[facility] [address] [place], [address] Calcium [Mass/Vol] 8.9 mg/dL Normal 7.6-11.0 [facility] Comment on above: Performed By: #### L 501.2450, L500.4050, L100.0100 ####[facility] [address] [place], [address] Chloride [Moles/Vol] 104 mmol/L Normal 98-108 [facility] Comment on above: Performed By: #### L 501.2450, L500.4050, L100.0100 ####[facility] [address] [place], [address] CO2 [Moles/Vol] 24.2 mmol/L Normal 21.0-32.0 [facility] Comment on above: Performed By: #### L 501.2450, L500.4050, L100.0100 ####[facility] [address] [place], [address] Creatinine [Mass/Vol] 0.68 mg/dL Low 0.70-1.20 [facility] Comment on above: Performed By: #### L 501.2450, L500.4050, L100.0100 ####[facility] [address] [place], [address] ECRCL 99.04 ml/min Normal 50-250 [facility] Comment on above: Performed By: #### L 501.2450, L500.4050, L100.0100 ####[facility] [address] [place], [address] GAP 12 Normal 5-15 [facility] Comment on above: Performed By: #### L 501.2450, L500.4050, L100.0100 ####[facility] [address] [place], [address] GFR/1.73 sq M.predicted among non-blacks MDRD (S/P/Bld) [Vol rate/Area] 98 mL/min/{1.73_m2} Normal >60 [facility] Comment on above: Result Comment: mL/m in/1.73m2 CKD-EPI Creatinine Equation (2020) Performed By: #### L 501.2450, L500.4050, L100.0100 ####[facility] [address] [place], [address] Globulin (S) [Mass/Vol] 3.1 g/dL Normal 2.2-4.2 [facility] Comment on above: Performed By: #### L 501.2450, L500.4050, L100.0100 ####[facility] [address] [place], [address] Glucose [Mass/Vol] 185 mg/dL High 70-99 [facility] Comment on above: Performed By: #### L 501.2450, L500.4050, L100.0100 ####[facility] [address] [place], [address] Potassium [Moles/Vol] 3.7 mmol/L Normal 3.3-5.1 [facility] Comment on above: Performed By: #### L 501.2450, L500.4050, L100.0100 ####[facility] [address] [place], [address] Sodium [Moles/Vol] 140 mmol/L Normal 133-145 [facility] Comment on above: Performed By: #### L 501.2450, L500.4050, L100.0100 ####[facility] [address] [place], [address] T PROT 7.1 g/dL Normal 5.9-8.4 [facility] Comment on above: Performed By: #### L 501.2450, L500.4050, L100.0100 ####[facility] [address] [place], [address] Urea nitrogen [Mass/Vol] 15 mg/dL Normal 4-19 [facility] Comment on above: Performed By: #### L 501.2450, L500.4050, L100.0100 ####[facility] [address] [place], [address] Emergency Department Summary on 08-13-2024 Emergency Department Summary [facility] Medical Records Department [address] [place] [address] Emergency Department Summary 08/13/24 MR#: [id number] Acct: [id number] Name: ALFONSO VERDUGO Rep #: [id number] : 1960 64 From: Mich Wheatley DO [...] with 1 polyp removed and called the air transportation provider office and they state that she should [...] does not get exacerbated with eating. PFSH [facility] Medical History Wears glasses Wears contact lenses [...] following commands knew that she was at [facility] the year is 2024 Skin: Warm, dry, [...] blood coun (more content not included)... Normal [facility] Eosinophil percentageOrdered By: Mich Wheatley on 08-13-2024 Eosinophils/100 WBC (Bld) 2.2 % 0-5 [facility] Erythrocyte distribution wid th ratioOrdered By: Mich Wheatley on 08-13-2024 Erythrocyte distribution width (RBC) [Ratio] 15.0 % High 11.6-14.6 [facility] Erythrocyte distribution wid th standard deviationOrdered By: Mich Wheatley on 08-13-2024 Erythrocyte distribution width (RBC) [Ratio] 48.9 fl High 35.1-43.9 [facility] Glomerular filtration rate ( GFR) estimation/1.73 sq m using serum, plasma, or whole bOrdered By: Mich Wheatley on 08-13-2024 GFR/1.73 sq M.predicted among non-blacks MDRD (S/P/Bld) [Vol rate/Area] 98 mL/min/{1.73_m2} >60 [facility] Comment on above: mL/min/1.73m2 CKD-EP I Creatinine Equation (2020) Hematocrit Auto (Bld) [Volum e fraction]Ordered By: Mich Wheatley on 08-13-2024 Hematocrit (Bld) [Volume fraction] 43.2 % 37-47 [facility] Hemoglobin measurementOrdere d By: Mich Wheatley on 08-13-2024 Hemoglobin (Bld) [Mass/Vol] 13.5 g/dL 12.0-15.0 [facility] Immature granulocytes/100 WB C Auto (Bld)Ordered By: Mich Wheatley on 08-13-2024 Immature granulocytes/100 WBC (Bld) 0.300 % 0.0-0.9 [facility] Comment on above: IG% - Immature Granu locytes (promyelocytes, myelocytes and metamyelocytes) > 1% indicates that a LEFT SHIFT is Present. Ketones Test strip Ql (U)Ord ered By: Mich Wheatley on 08-13-2024 Ketones Ql (U) Negative Negative [facility] - Chemistry and C hemistry - challengeOrdered By: Mich Wheatley on 08-13-2024 AST [Catalytic activity/Vol] 18 U/L <32 [facility] Lipaseon 08-13-2024 Lipase [Catalytic activity/Vol] 37 U/L Normal 13-75 [facility] Comment on above: Result Comment: Darrion samuels note: LIPASE revised reference range effective 22. New Lipase methodology. Expected to produce lower values than the previous assay method. NEW Reference Range: 13 - 75 U/L Performed By: #### L 501.2450, L500.4050, L100.0100 ####[facility] [address] [place], [address] Lipase measurementOrdered By : Mich Wheatley on 08-13-2024 Lipase [Catalytic activity/Vol] 37 U/L 13-75 [facility] Comment on above: Please note:LIPASE r evised reference range effective 22. New Lipase methodology. Expected to produce lower values than the previous assay method. NEW Reference Range: 13 - 75 U/L MCV (mean corpuscular volume ) determinationOrdered By: Mich Wheatley on 08-13-2024 MCV (RBC) [Entitic vol] 88.5 fL 81-99 [facility] Mean corpuscular hemoglobin (MCH) determinationOrdered By: Mich Wheatley on 08-13-2024 MCH (RBC) [Entitic mass] 27.7 pg 27.0-32.0 [facility] Mean corpuscular hemoglobin concentration (MCHC) determinationOrdered By: Mich Wheatley on 08-13-2024 MCHC (RBC) [Mass/Vol] 31.3 g/dL Low 32-36 [facility] Mean platelet volume determi nationOrdered By: Mich Wheatley on 08-13-2024 Platelet mean volume (Bld) [Entitic vol] 10.6 fL 6.2-12.0 [facility] Microscopic analysis of urin e for red blood cells (RBC)Ordered By: Mich Wheatley on 08-13-2024 Microscopic analysis of urine for red blood cells (RBC) 0 SEEN /hpf 0-5 [facility] Monocyte percentageOrdered B y: Mich Wheatley on 08-13-2024 Monocytes/100 WBC (Bld) 6.0 % 0-10 [facility] Mucus LM Ql (Urine sed)Order ed By: Mich Wheatley on 08-13-2024 Mucus Ql (Urine sed) 0 SEEN /hpf [facility] Neutrophil percentageOrdered By: Mich Wheatley on 08-13-2024 Neutrophils/100 WBC (Bld) 59.5 % 47-70 [facility] Nitrite Test strip Ql (U)Ord ered By: Mich Wheatley on 08-13-2024 Nitrite Ql (U) Negative Negative [facility] Nucleated red blood cell per centageOrdered By: Mich Wheatley on 08-13-2024 Nucleated RBC/100 WBC (Bld) [Ratio] 0 % 0-5 [facility] Platelet countOrdered By: Syed Wheatley on 08-13-2024 Platelets (Bld) [#/Vol] 306 10*3/uL 150-450 [facility] Potassium measurement (mass/ volume)Ordered By: Mich Wheatley on 08-13-2024 Potassium (Unsp spec) [Mass/Vol] 3.7 mmol/L 3.3-5.1 [facility] Protein Test strip Ql (U)Ord ered By: Mich Wheatley on 08-13-2024 Protein Ql (U) Negative Negative [facility] RBC Auto (Bld) [#/Vol]Ordere d By: Mich Wheatley on 08-13-2024 RBC (Bld) [#/Vol] 4.88 10*6/uL 4.2-5.4 [facility] Serum creatinine measurement (mass/volume)Ordered By: Mich Wheatley on 08-13-2024 Creatinine [Mass/Vol] 0.68 mg/dL Low 0.70-1.20 [facility] Serum globulin measurementOr dered By: Mich Wheatley on 08-13-2024 Globulin (S) [Mass/Vol] 3.1 g/dL 2.2-4.2 [facility] Serum glucose measurement (m ass/volume)Ordered By: Mich Wheatley on 08-13-2024 Glucose [Mass/Vol] 185 mg/dL High 70-99 [facility] Serum or plasma alanine reeder otransferase (ALT) measurementOrdered By: Mich Wheatley on 08-13-2024 ALT [Catalytic activity/Vol] 12 U/L <35 [facility] Serum or plasma albumin alisa urement (mass/volume)Ordered By: Mich Wheatley on 08-13-2024 Albumin [Mass/Vol] 4.0 g/dL 3.4-4.8 [facility] Serum or plasma albumin/glob ulin mass ratioOrdered By: Mich Wheatley on 08-13-2024 Albumin/Globulin [Mass ratio] 1.3 {ratio} 0.9-2.4 [facility] Serum or plasma alkaline janes sphatase measurementOrdered By: Mich Wheatley on 08-13-2024 ALP [Catalytic activity/Vol] 113 U/L High 35-104 [facility] Serum or plasma calcium alisa urement (mass/volume)Ordered By: Mich Wheatley on 08-13-2024 Calcium [Mass/Vol] 8.9 mg/dL 7.6-11.0 [facility] Serum or plasma urea nitroge n measurement (mass/volume)Ordered By: Mich Wheatley on 08-13-2024 Urea nitrogen [Mass/Vol] 15 mg/dL 4-19 [facility] Sodium levelOrdered By: Cassandra Wheatley on 08-13-2024 Sodium [Moles/Vol] 140 mmol/L 133-145 [facility] Squamous epithelial cells de tection in urine sediment by light microscopyOrdered By: Mich Wheatley on 08-13-2024 Epithelial cells.squamous LM Ql (Urine sed) 0-5 SEEN /hpf 5-10 [facility] Total proteinOrdered By: Mena Wheatley on 08-13-2024 Protein [Mass/Vol] 7.1 g/dL 5.9-8.4 [facility] Urinalysis, Completeon 08-13 EPI,SQUAMOUS 0-5 SEEN Normal 5-10 [facility] Comment on above: Order Comment: CLEAN CATCH Performed By: #### L 400.0001 #### [facility] [address] [place], [address] WBC 0-5 SEEN Normal 0-5 [facility] Comment on above: Order Comment: CLEAN CATCH Performed By: #### L 400.0001 #### [facility] [address] [place], [address] BACTERIA 0 SEEN Normal None Seen [facility] Comment on above: Order Comment: CLEAN CATCH Performed By: #### L 400.0001 #### [facility] [address] [place], [address] Mucus Ql (Urine sed) 0 SEEN Normal [facility] Comment on above: Order Comment: CLEAN CATCH Performed By: #### L 400.0001 #### [facility] [address] [place], [address] RBC 0 SEEN Normal 0-5 [facility] Comment on above: Order Comment: CLEAN CATCH Performed By: #### L 400.0001 #### [facility] [address] [place], [place], [address] Urine clarityOrdered By: Mena Wheatley on 08-13-2024 Clarity (U) Sl. Cloudy Clear [facility] Urine color determinationOrd ered By: Mich Wheatley on 08-13-2024 Color (U) Yellow Yellow [facility] Urine glucose detectionOrder ed By: Mich Wheatley on 08-13-2024 Glucose Ql (U) Normal mg/dl Normal [facility] Urine leukocyte esterase det ection by dipstickOrdered By: Mich Wheatley on 08-13-2024 Leukocyte esterase Test strip Ql (U) 100 /ul High Negative [facility] Urine pHOrdered By: Mich banks on 08-13-2024 pH (U) 6.0 [pH] 5.0 - 8.0 [facility] Urine sediment bacteria coun t by microscopy (number/high power field)Ordered By: Mich Wheatley on 08-13-2024 Bacteria LM.HPF (Urine sed) [#/Area] 0 /[HPF] None Seen [facility] Urine specific gravity measu rementOrdered By: Mich Wheatley on 08-13-2024 Specific gravity (U) [Rel density] 1.010 1.002-1.030 [facility] Urine urobilinogen measureme ntOrdered By: Mich Wheatley on 08-13-2024 Urobilinogen Ql (U) Normal mg/dl Normal [facility] White blood cell (WBC) count Ordered By: Mich Wheatley on 08-13-2024 WBC (Bld) [#/Vol] 6.0 10*3/uL 4.4-11.0 [facility] White blood cell countOrdere d By: Mich Wheatley on 08-13-2024 White blood cell count 0-5 SEEN /hpf 0-5 [facility] Colonoscopy Reporton 025 Colonoscopy Report [facility] Medical Records Department [address] [place] [address] Colonoscopy Report MR#: [id number] Acct: [id number] Name: ALFONSO VERDUGO Rep #: [id number] : 1960 64 From: Maryellen Lopez MD PCP: Dr. Millie Payton MD Status:[facility] Patient Name: Alfonso Verdugo Procedure Date: 08/04/2024 [...] pathology results. Procedure Code(s): --- Professional --- 75580, PT, Colonoscopy, flexible; with removal of tumor(s), polyp(s), or other lesion(s) by snare technique Diagnosis Code(s): --- Professional --- Z86.010, Personal history of colonic polyps D12.4, Benign neoplasm of descending colon Z80.0, Family history of malignant neoplasm of digestive organs CPT copyright 2021 [employer]. All rights reserved. The codes documented in this report are preliminary and upon mill operator helper review may be revised to meet current compliance requirements. MD Maryellen Ramires MD 08/04/2024 8:03:27 AM This report has been signed electronically. Number of Addenda: 0 Note Initiated On: 08/04/2024 7:27 AM 08/04/24 0803 Date Maryellen Mehta Signature: Date (if indicated) CC: Dr. Millie Payton MD; Dr. Maryellen Lopez MD Date Dictated: 08/04/24726 Date Transcribed: Hazardous Waste Remover: TR Signed [facility] MR/POSTOP.ANEon 08-04-2024 [facility] Medical Records Department [address] [place] [address] Anesthesia Postop Eval I 08/04/24 0810 MR#: [id number] Acct: [id number] Name: ALFONSO VERDUGO PASCALE Rep #: [id number] : 1960 64 From: Juancarlos Wheatley PCP: Dr. Millie Payton MD Status:REG GILMAR Y Race: C Location: [place] [address] Anesthesia: Postop Eval I Current Vital Signs [...] Date Juancarlos Montanez Signature: Date CC: Signed [facility] MR/RDFOTMVV6kj 08-04-2024 MR/POSTOPAN2 [facility] Medical Records Department [address] [facility] [place] [address] Anesthesia Postop Eval II 08/04/24 1228 MR#: [id number] Acct: [id number] Name: ALFONSO VERDUGO PASCALE Rep #: [id number] : 1960 64 From: Kris Oviedo MD [...] MD Cosigner Signature: Date CC: Signed Normal [facility] Surgery Specimen Level Latisha 08-04-2024 Surgery Specimen Level IV Patient Age/Sex Location Account Attending Physician ALFONSO VERDUGO 64/F EN [id number] Dr. Maryellen Lopez MD Specimen: [id number] Received: 08/04/24 Status: CASS Glez Num: [id number] Spec Type: COLON BX Subm Dr: Dr. [...] totally submitted in one cassette. FLO/ 08/04/2024 CPT:70418 Patient Age/Sex Location Account Attending Physician ALFONSO VERDUGO 64/F EN [id number] Dr. Maryellen Lopez MD Signed (signature on file) Dr. Minerva Dean MD 08/12/24 0850 Normal [facility] Comment on above: Performed By: #### P SUIV #### [facility] [address] [place], [address] MR/PAT.Tali 07-31-2024 MR/PAT.HUBERT [facility] Medical Records Department [address] [place] [address] PAT - Anesthesia 07/31/24 1114 MR#: [id number] Acct: [id number] Name: ALFONSO VERDUGO Rep #: [id number] : 1960 64 From: Juan Georges MD PCP: Dr. 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 Hx Hospitalization No 07/31/24 10:35 Any Problems [...] take am of surgery PONV PONV - apprentice electrician: PONV - apprentice electrician Female Yes 07/31/24 10:35 HX of Motion [...] 05/30/24 11:34 Respiratory Assessment Respiratory Assessment - apprentice electrician: Respiratory Tract Infection Hx - apprentice electrician Hx Respiratory Tract Infection No 07/31/24 10:35 STOP Sleep Apnea STOP Sleep Apnea - apprentice electrician: STOP Sleep Apnea - apprentice electrician Hx Hypertension No 07/31/24 10:35 Hx Sleep [...] Tobacco Use History Tobacco Use History - apprentice electrician: Tobacco Use History - apprentice 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 Tobacco Use Smoking Status Never smoker 07/31/24 10:35 Hx Tobacco Use No 07/31/24 10:35 Years Smoking Packs Smoked per Day Smoking Cessation Date was within the last 15 years Hx Smoking Cessation Date Hx Smoking Cessation Counseling Hematologic Medial History Hematologic Hx - apprentice 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 Normal [facility] Mold Tooling Technician Office Visit Reporton 05-30-2024 Mold Tooling Technician Office Visit Report [facility] [address], [address] [place] [address] OFFICE VISIT Date of Service: 05/30/24 MR#: [id number] Acct: [id number] Name: ALFONSO VERDUGO Rep #: [id number] : 1960 Provider: Dr. Rose Marie florez MD Age/Sex: 64/F [place] [facility] [place]: Signed Intake Vital Signs 04/08/24 09:36 04/30/24 08:41 05/30/24 11:32 05/30/24 11:34 Height 5 ft 6 in 5 ft 6 in 5 ft 6 in 5 ft 6 in Weight: 209 lb 6 oz 211 lb BMI 33.7 34.0 BP 130/82 H 125/84 H Pulse 77 71 Intake Visit Reasons: 3 M FU Bench Examiner Required: No Is patient in pain?: No Allergies Penicillins Adverse Reaction (Verified 04/30/24 08:34) Rash Sulfa (Sulfonamide Antibiotics) Adverse Reaction (Verified 04/30/24 08:34) Rash Medications ???Medication ???Instructions ???Recorded ???Confirmed ???Type levothyroxine 88 mcg tablet 88 mcg PO DAILY 10/11/23 05/30/24 History phentermine 15 mg-topiramate ER 92 1 cap PO Q24H #30 caps 05/30/24 05/30/24 Rx mg capsule,ext.[id number] multphas (Qsymia) venlafaxine 75 mg capsule,extended 75 [...] home: Yes additional social history: Remarried to [employer]! 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 History 3 Elective abortions Hx [...] comfortable and no acute distress Orientation: alert HENMI Head: normal to inspection and normocephalic Eyes [...] or consult (more content not included)... Normal [facility] Office Visit Reporton 2024 Office Visit Report [facility] [address] [place] [address] OFFICE VISIT Date of Service: 04/30/24 MR#: [id number] Acct: [id number] Patient: ALFONSO VERDUGO Rep #: [id number] : 1960 Provider: Dr. Rose Marie florez MD Age/Sex: 64/F Location[place] [facility] Status: Signed Intake Vital Signs 04/08/24 09:36 04/30/24 08:41 Height 5 ft 6 in 5 ft 6 in Weight: 209 lb 6 oz BMI 33.7 BP 130/82 H Pulse 77 Intake Visit Reasons: 1 M med check Chief Complaint: BP/HR/Weight Check Bench Examiner Required: No Is patient in pain?: No Allergies Penicillins Adverse Reaction (Verified 04/30/24 08:34) Rash Sulfa (Sulfonamide Antibiotics) Adverse Reaction (Verified 04/30/24 08:34) Rash Medications ???Medication ???Instructions ???Recorded ???Confirmed ???Type levothyroxine 88 mcg tablet 88 mcg PO DAILY 10/11/23 04/30/24 History phentermine 15 mg-topiramate ER 92 1 cap PO Q24H #30 caps 03/05/24 04/30/24 Rx mg capsule,ext.[id number] multphas (Qsymia) venlafaxine 75 mg capsule,extended 75 [...] Montanez Signature: Date (if applicable) CC: Normal [facility] Office Visit Reporton 2024 Office Visit Report [facility] [address] [place] [address] OFFICE VISIT Date of Service: 04/08/24 MR#: [id number] Acct: [id number] Patient: ALFONSO VERDUGO Rep #: [id number] : 1960 Provider: ARSALAN Mclean Age/Sex: 63/F Location[place] [facility] Status: Signed Intake Vital Signs 03/05/24 09:25 04/03/24 13:30 04/08/24 09:36 Height 5 ft 6 in 5 ft 6 in 5 ft 6 in Weight: 210 lb 4 oz BMI 33.9 BP 133/84 H Pulse 67 Pulse Source Monitor Intake Visit Reasons: 1 M weigh in med check Chief Complaint: BP/HR/Weight Check Bench Examiner Required: No Is patient in pain?: No [...] Q24H #30 caps 03/05/24 04/08/24 Rx mg capsule,ext.xksndam75oa multphas (Qsymia) Post menopausal: No Patient : No Have you fallen in the past year?: No Nurse's Note: [facility] [place]. She is scheduling 2 NVs and then [...] Montanez Signature: Date (if applicable) CC: Normal [facility] Mold Tooling Technician Office Visit Reporton 03-05-2024 Mold Tooling Technician Office Visit Report [facility] [address], [address] [place] [address] OFFICE VISIT Date of Service: 03/05/24 MR#: [id number] Acct: [id number] Name: ALFONSO VERDUGO Rep #: [id number] : 1960 Provider: ARSALAN Mclean Age/Sex: 63/F [place] [facility] Status: Signed Intake Vital Signs 01/23/24 10:12 03/05/24 09:19 03/05/24 09:25 Height 5 ft 6 in 5 ft 6 in 5 ft 6 in Weight: 207 lb 6 oz BMI 33.5 BP 115/75 Pulse 78 Intake Visit Reasons: Weight management Bench Examiner Required: No Is patient in pain?: No [...] Q24H #30 caps 03/05/24 03/05/24 Rx mg capsule,ext.[id number] multphas (Qsymia) Last Menstrual Period: 02/19/11 Have [...] Bth [facility] FOB Unknown Vasyl-1989 Unknown Yobany-1993 [...] Other obesity: Status: Acute Comment: Nutrition plan: [facility] 1200, 40-50 net carb nutritional plan. Using Lose it desmond. Has a goal to lose another 25 in the next 6 months. Incorporate more vegetables; lean meats; protein. Medication plan: Qsymia-continue; continue current dosing; tolerati (more content not included)... Normal [facility] Mold Tooling Technician Office Visit Reporton 01-23-2024 Mold Tooling Technician Office Visit Report [facility] [address] [place] [address], [address] [place] [address] OFFICE VISIT Date of Service: 01/23/24 MR#: [id number] Acct: [id number] Name: ALFONSO VERDUGO Rep #: [id number] : 1960 Provider: ARSALAN Mclean Age/Sex: 63/F [place] [facility]: Signed Intake Vital Signs 10/11/23 08:49 12/11/23 13:37 01/23/24 10:08 01/23/24 10:12 Height 5 ft 6 in 5 ft 6 in 5 ft 6 in 5 ft 6 in Weight: 207 lb BMI 33.4 BP 137/84 H Pulse 92 Intake Visit Reasons: 3 M WM Chief Complaint: 3 m f/u Bench Examiner Required: No Is patient in pain?: No [...] Q24H #30 caps 01/23/24 01/23/24 Rx mg capsule,ext.hxnbxbr98te multphas (Qsymia) Last Menstrual Period: 02/19/11 PFSH [...] comfortable and no acute distress Orientation: alert HENMI Head: normal to inspection and normocephalic Eyes [...] Other obesity: Status: Acute Comment: Nutrition plan: [facility] 8019-8333, 40-50 net carb nutritional plan. Using Lose it desmond. Medication plan: Qsymia; continue current dosing; tolerating well with no side effects. Discussed once she reaches her goals potentially titrating down. control- postmenopausal. Behavior intervention: recommend daily journal of food intake with electronic me (more content not included)... Normal [facility] 25(OH)D3 [facility] 2023 25-hydroxyvitamin D3 [Mass/Vol] 21.8 ng/mL Low 31.0-80.0 [facility] Comment on above: Order Comment: Specbeverly ahn Type: BLOOD SPECIMEN Ordering Facility: [facility] Address: [address] [place] [address] [address], [place] [address] Result Comment: Clas sification of 25 [place] Vitamin D status: Deficiency/Insufficiency: < or = 30 ng/ml. Sufficiency/Optimal Levels: 31-80 ng/mL Toxicity: > 100 ng/mL. Test performed by chemiluminescent immunoassay. Performed By: #### 1 989-3 #### [facility] CLIA [id number] [address] [place] [address] [place] CBC W Auto Differential pane l (Bld)on 12-28-2023 Basophils (Bld) [#/Vol] 0.04 10*3/uL Normal <0.11 [facility] Comment on above: Order Comment: Saskia ahn Type: BLOOD SPECIMEN Ordering Facility: [facility] Address: [address] [place] [address] RD [facility], [place] [address] Performed By: #### 5 7021-8 #### [facility] CLIA [id number] [address] [place] [address] [place] Basophils/100 WBC (Bld) 0.8 % Normal C [facility] Comment on above: Order Comment: Speci men Type: BLOOD SPECIMEN Ordering Facility: [facility] Address: [address] [place] [address] Performed By: #### 5 7021-8 #### [facility] CL[facility] [id number] [address] [place] [address] [place] Differential cell count method Nom (Bld) Auto Normal [facility] Comment on above: Order Comment: Speci men Type: BLOOD SPECIMEN Ordering Facility: [facility] Address: [address] [place] [address] Performed By: #### 5 7021-8 #### [facility] CLIA [id number] [address] [place] [address] [place] Eosinophils (Bld) [#/Vol] 0.17 10*3/uL Normal <0.46 [facility] Comment on above: Order Comment: Speci men Type: BLOOD SPECIMEN Ordering Facility: [facility] Address: [address] [place] [address] Performed By: #### 5 7021-8 #### [facility] CLIA [id number] [address] [place] [address] [place] Eosinophils/100 WBC (Bld) 3.5 % Normal [facility] Comment on above: Order Comment: Speci men Type: BLOOD SPECIMEN Ordering Facility: [facility] Address: [address] [place] [address] Performed By: #### 5 7021-8 #### [facility] CLIA [id number] [address] [place] [address] [place] Erythrocyte distribution width (RBC) [Ratio] 15.0 % Normal 11.5-15.0 [facility] Comment on above: Order Comment: Speci men Type: BLOOD SPECIMEN Ordering Facility: [facility] Address: [address] [place] [address] Performed By: #### 5 7021-8 #### [facility] CLIA [id number] [address] [place] [address] [place] Hematocrit (Bld) [Volume fraction] 40.4 % Normal 36.0-46.0 [facility] Comment on above: Order Comment: Speci men Type: BLOOD SPECIMEN Ordering Facility: [facility] Address: [address] [place] [address] Performed By: #### 5 7021-8 #### [facility] CLIA [id number] [address] [place] [address] [place] Hemoglobin (Bld) [Mass/Vol] 12.8 g/dL Normal 11.5-15.5 [facility] Comment on above: Order Comment: Speci men Type: BLOOD SPECIMEN Ordering Facility: [facility] Address: [address] [place] [address] Performed By: #### 5 7021-8 #### [facility] CLIA [id number] [address] [place] [address] [place] Immature granulocytes (Bld) [#/Vol] 10*3/uL Normal <0.10 [facility] Comment on above: Order Comment: Speci men Type: BLOOD SPECIMEN Ordering Facility: [facility] Address: [address] [place] [address] Performed By: #### 5 7021-8 #### [facility] CLIA [id number] [address] [place] [address] [place] Immature granulocytes/100 WBC (Bld) 0.2 % Normal [facility] Comment on above: Order Comment: Speci men Type: BLOOD SPECIMEN Ordering Facility: [facility] Address: [address] [place] [address] Performed By: #### 5 7021-8 #### [facility] CLIA [id number] [address] [place] [address] [place] Lymphocytes (Bld) [#/Vol] 1.82 10*3/uL Normal 1.00-4.00 [facility] Comment on above: Order Comment: Speci men Type: BLOOD SPECIMEN Ordering Facility: [facility] Address: [address] [place] [address] Performed By: #### 5 7021-8 #### [facility] CLIA [id number] [address] [place] [address] [place] Lymphocytes/100 WBC (Bld) 37.4 % Normal [facility] Comment on above: Order Comment: Speci men Type: BLOOD SPECIMEN Ordering Facility: [facility] Address: [address] [place] [address] Performed By: #### 5 7021-8 #### [facility] CLIA [id number] [address] [place] [address] [place] MCH (RBC) [Entitic mass] 27.7 pg Normal 26.0-34.0 [facility] Comment on above: Order Comment: Speci men Type: BLOOD SPECIMEN Ordering Facility: [facility] Address: [address] [place] [address] Performed By: #### 5 7021-8 #### [facility] CLIA [id number] [address] [place] [address] [place] MCHC (RBC) [Mass/Vol] 31.7 g/dL Normal 30.5-36.0 [facility] Comment on above: Order Comment: Speci men Type: BLOOD SPECIMEN Ordering Facility: [facility] Address: [address] [place] [address] Performed By: #### 5 7021-8 #### [facility] CLIA [id number] [address] [place] [address] [place] MCV (RBC) [Entitic vol] 87.4 fL Normal 80.0-100.0 C [facility] Comment on above: Order Comment: Speci men Type: BLOOD SPECIMEN Ordering Facility: [facility] Address: [address] [place], [place] [address] Performed By: #### 5 7021-8 #### [facility] CLIA [id number] [address] [place] [address] [place] Monocytes (Bld) [#/Vol] 0.31 10*3/uL Normal <0.87 [facility] Comment on above: Order Comment: Speci men Type: BLOOD SPECIMEN Ordering Facility: [facility] Address: [address] [place] [address] Performed By: #### 5 7021-8 #### [facility] CLIA [id number] [address] [place] [address] [place] Monocytes/100 WBC (Bld) 6.4 % Normal [facility] Comment on above: Order Comment: Speci men Type: BLOOD SPECIMEN Ordering Facility: [facility] Address: [address] [place] [address] Performed By: #### 5 7021-8 #### [facility] CLIA [id number] [address] [place] [address] [place] Neutrophils (Bld) [#/Vol] 2.51 10*3/uL Normal 1.45-7.50 [facility] Comment on above: Order Comment: Speci men Type: BLOOD SPECIMEN Ordering Facility: [facility] Address: [address] [place] [address] Performed By: #### 5 7021-8 #### [facility] CLIA [id number] [address] [place] [address] [place] Neutrophils/100 WBC (Bld) 51.7 % Normal [facility] Comment on above: Order Comment: Speci men Type: BLOOD SPECIMEN Ordering Facility: [facility] Address: [address] [place] [address] Performed By: #### 5 7021-8 #### [facility] CLIA [id number] [address] [place] [address] [place] Nucleated RBC (Bld) [#/Vol] 10*3/uL Normal <0.01 [facility] Comment on above: Order Comment: Speci men Type: BLOOD SPECIMEN Ordering Facility: [facility] Address: [address] [place] [address] Performed By: #### 5 7021-8 #### [facility] CLIA [id number] [address] [place] [address] [place] Nucleated RBC/100 WBC (Bld) [Ratio] 0.0 /100 WBC Normal [facility] Comment on above: Order Comment: Speci men Type: BLOOD SPECIMEN Ordering Facility: [facility] Address: [address] [place] [address] Performed By: #### 5 7021-8 #### [facility] CLIA [id number] [address] [place] [address] [place] Platelet mean volume (Bld) [Entitic vol] 10.4 fL Normal 9.0-12.7 [facility] Comment on above: Order Comment: Speci men Type: BLOOD SPECIMEN Ordering Facility: [facility] Address: [address] [place] [address] Performed By: #### 5 7021-8 #### [facility] CLIA [id number] [address] [place] [address] [place] Platelets (Bld) [#/Vol] 310 10*3/uL Normal 150-400 [facility] Comment on above: Order Comment: Speci men Type: BLOOD SPECIMEN Ordering Facility: [facility] Address: [address] [place] [address] Performed By: #### 5 7021-8 #### [facility] CLIA [id number] [address] [place] [address] [place] RBC (Bld) [#/Vol] 4.62 10*6/uL Normal 3.90-5.20 [facility] Comment on above: Order Comment: Speci men Type: BLOOD SPECIMEN Ordering Facility: [facility] Address: [address] [place] [address] Performed By: #### 5 7021-8 #### [facility] CLIA [id number] [address] [place] [address] [place] WBC (Bld) [#/Vol] 4.86 10*3/uL Normal 3.70-11.00 [facility] Comment on above: Order Comment: Speci men Type: BLOOD SPECIMEN Ordering Facility: [facility] Address: [address] [place] [address] Performed By: #### 5 7021-8 #### [facility] CLIA [id number] [address] [place] [address] [place] Comprehensive metabolic 2000 panelon 12-28-2023 Albumin [Mass/Vol] 4.2 g/dL Normal 3.9-4.9 [facility] Comment on above: Order Comment: Speci men Type: BLOOD SPECIMEN Ordering Facility: [facility] Address: [address] [place] [address] Performed By: #### 2 4323-8 #### [facility] CLIA [id number] [address] [place] [address] [place] ALP [Catalytic activity/Vol] 123 U/L Normal 34-123 [facility] Comment on above: Order Comment: Speci men Type: BLOOD SPECIMEN Ordering Facility: [facility] Address: [address] [place] [address] Performed By: #### 2 4323-8 #### [facility] CLIA [id number] [address] [place] [address] [place] ALT [Catalytic activity/Vol] 10 U/L Normal 7-38 [facility] Comment on above: Order Comment: Speci men Type: BLOOD SPECIMEN Ordering Facility: [facility] Address: [address] [place] [address] Performed By: #### 2 4323-8 #### [facility] CLIA [id number] [address] [place] [address] [place] Anion gap [Moles/Vol] 12 mmol/L Normal 8-15 [facility] Comment on above: Order Comment: Speci men Type: BLOOD SPECIMEN Ordering Facility: [facility] Address: [address] [place] [address] Performed By: #### 2 4323-8 #### [facility] CLIA [id number] [address] [place] [address] [place] AST [Catalytic activity/Vol] 11 U/L Low 13-35 [facility] Comment on above: Order Comment: Speci men Type: BLOOD SPECIMEN Ordering Facility: [facility] Address: [address] [place] [address] Performed By: #### 2 4323-8 #### [facility] CLIA [id number] [address] [place] [address] [place] Bilirubin [Mass/Vol] 0.5 mg/dL Normal 0.2-1.3 [facility] Comment on above: Order Comment: Speci men Type: BLOOD SPECIMEN Ordering Facility: [facility] Address: [address] [place] [address] Performed By: #### 2 4323-8 #### [facility] CLIA [id number] [address] [place] [address] [place] Calcium [Mass/Vol] 9.2 mg/dL Normal 8.5-10.2 [facility] Comment on above: Order Comment: Speci men Type: BLOOD SPECIMEN Ordering Facility: [facility] Address: [address] [place] [address] Performed By: #### 2 4323-8 #### [facility] CLIA [id number] [address] [place] [address] [place] Chloride [Moles/Vol] 106 mmol/L Normal 98-107 [facility] Comment on above: Order Comment: Saskia ahn Type: BLOOD SPECIMEN Ordering Facility: [facility] Address: [address] [place] [address] Performed By: #### 2 4323-8 #### [facility] CLIA [id number] [address] [place] [address] [place] CO2 [Moles/Vol] 23 mmol/L Normal 22-30 [facility] Comment on above: Order Comment: Speci men Type: BLOOD SPECIMEN Ordering Facility: [facility] Address: [address] [place] [address] Performed By: #### 2 4323-8 #### [facility] CLIA [id number] [address] [place] [address] [place] Creatinine [Mass/Vol] 0.70 mg/dL Normal 0.58-0.96 [facility] Comment on above: Order Comment: Saskia ahn Type: BLOOD SPECIMEN Ordering Facility: [facility] Address: [address] [place] [address] Performed By: #### 2 4323-8 #### [facility] CLIA [id number] [address] [place] [address] OF [facility] Creatinine and Glomerular filtration rate.predicted panel (S/P/Bld) 99 mL/min/1.73m??? Normal >=60 [facility] Comment on above: Order Comment: Saskia men Type: BLOOD SPECIMEN Ordering Facility: [facility] Address: [address] [place] [address] Result Comment: Lakia mated Glomerular Filtration Rate [...] GFR. Performed By: #### 2 4323-8 #### [facility] CLIA [id number] [address] [place] [address] [place] Glucose [Mass/Vol] 97 mg/dL Normal 74-99 [facility] Comment on above: Order Comment: Saskia ahn Type: BLOOD SPECIMEN Ordering Facility: [facility] Address: [address] [place] [address] Result Comment: The [place] [employer] (ADA) provides guidance for cutoff [...] Standards of Medical Care in Diabetes 2016, [place] [employer]. Diabetes Care. 2016.39(Suppl 1). Performed By: #### 2 4323-8 #### [facility] CLIA [id number] [address] [place] [address] [place] Potassium [Moles/Vol] 3.9 mmol/L Normal 3.7-5.1 [facility] Comment on above: Order Comment: Saskia ahn Type: BLOOD SPECIMEN Ordering Facility: [facility] Address: [address] [place] [address] Performed By: #### 2 4323-8 #### [facility] CLIA [id number] [address] [place] [address] [place] Protein [Mass/Vol] 7.0 g/dL Normal 6.3-8.0 [facility] Comment on above: Order Comment: Saskia ahn Type: BLOOD SPECIMEN Ordering Facility: [facility] Address: [address] [place] [address] Performed By: #### 2 4323-8 #### [facility] CLIA [id number] [address] [place] [address] [place] Sodium [Moles/Vol] 141 mmol/L Normal 136-144 [facility] Comment on above: Order Comment: Speci men Type: BLOOD SPECIMEN Ordering Facility: [facility] Address: [address] [place] [address] Performed By: #### 2 4323-8 #### [facility] CLIA [id number] [address] [place] [address] [place] Urea nitrogen [Mass/Vol] 16 mg/dL Normal 7-21 [facility] Comment on above: Order Comment: Speci men Type: BLOOD SPECIMEN Ordering Facility: [facility] Address: [address] [place] [address] Performed By: #### 2 4323-8 #### [facility] CLIA [id number] [address] [place] [address] [place] Lipid 1996 panelon 4 Cholesterol [Mass/Vol] 206 mg/dL High <200 [facility] Comment on above: Order Comment: Speci men Type: BLOOD SPECIMEN Ordering Facility: [facility] Address: [address] [place] [address] Result Comment: <200 mg/dL, Desirable 200-239 mg/dL, Borderline high >239 mg/dL, High Performed By: #### 2 4331-1 #### [facility] CLIA [id number] [address] [address] [place] [facility] CLIA [id number] [address] [place] [address] [place] #### 3016-3 #### [facility] CLIA [id number] [address] [address] [place] Cholesterol in HDL [Mass/Vol] 57 mg/dL Normal >39 [facility] Comment on above: Order Comment: Angelitoi men Type: BLOOD SPECIMEN Ordering Facility: [facility] Address: [address] [place] [address], [place] [address] Result Comment: 40-5 9 mg/dL, Acceptable >59 mg/dL, High: Negative risk factor for coronary heart disease <40 mg/dL, Low: Positive risk factor for coronary heart disease Performed By: #### 2 4331-1 #### [facility] CLIA [id number] [address] [facility] [address] [address] [place] [facility] CLIA [id number] [address] [place] [address] [place] #### 3016-3 #### [facility] CLIA [id number] [address] [facility] [place] [id number] [place] Cholesterol in LDL [Mass/Vol] 135 mg/dL High <100 [facility] Comment on above: Order Comment: Angelitoi men Type: BLOOD SPECIMEN Ordering Facility: [facility] Address: [address] [place] [address], [place] [address] Result Comment: <100 mg/dL, Optimal 100-129 mg/dL, Near optimal/above optimal 130-159 mg/dL, Borderline high 160-189 mg/dL, High >189 mg/dL, Very high Secondary prevention optimal LDL Cholesterol levels are recommended to be < 70 mg/dL Performed By: #### 2 4331-1 #### [facility] CLIA [id number] [address] [facility] [address] [address] [place] [facility] CLIA [id number] [address] [place] [address] [place] #### 3016-3 #### [facility] CLIA [id number] [address] [facility] [address] [address] [place] Cholesterol in LDL/Cholesterol in HDL [Mass ratio] 2.37 {ratio} Normal <2.54 [facility] Comment on above: Order Comment: Speci men Type: BLOOD SPECIMEN Ordering Facility: [facility] Address: [address] [place] [address] Result Comment: Dany patel: 1. National Cholesterol Education Program ATP III Guideline At-A-Glance Quick Desk Reference: National Heart, Lung, and Blood [place]. National Institutes of Health. 2001: NIH Publication No. 01-3305. 2. An International Atherosclerosis Society position paper: global recommendations for the management of dyslipidemia: executive summary, Atherosclerosis. 2014: 232(2):410-413. Performed By: #### 2 4331-1 #### [facility] CLIA [id number] [address] [place] [address] [place] [facility] CLIA [id number] [address] [place] [address] [place] #### 3016-3 #### [facility] CLIA [id number] [address] [place] [address] [place] Cholesterol in VLDL [Mass/Vol] 14 mg/dL Normal <30 [facility] Comment on above: Order Comment: Angelitoi men Type: BLOOD SPECIMEN Ordering Facility: [facility] Address: [address] [place] [address] Performed By: #### 2 4331-1 #### [facility] CLIA [id number] [address] [place] [address] [place] [facility] CLIA [id number] [address] [place] [address] [place] #### 3016-3 #### [facility] CLIA [id number] [address] [place] [address] [place] Cholesterol non HDL [Mass/Vol] 149 mg/dL High <130 [facility] Comment on above: Order Comment: Speci men Type: BLOOD SPECIMEN Ordering Facility: [facility] Address: [address] [place] [address] Result Comment: <130 mg/dL, Optimal 130-159 mg/dL, Near optimal/above optimal 160-189 mg/dL, Borderline high 190-219 mg/dL, High >219 mg/dL, Very high Secondary prevention optimal non HDL Cholesterol levels are recommended to be <100 mg/dL Performed By: #### 2 4331-1 #### [facility] CLIA [id number] [address] [place] [address] [place] [facility] CLIA [id number] [address] [place] [address] [place] #### 3016-3 #### [facility] CLIA [id number] [address] [place] [address] [place] Cholesterol.total/Elina sterol in HDL [Mass ratio] 3.61 {ratio} Normal <5.10 [facility] Comment on above: Order Comment: Speci men Type: BLOOD SPECIMEN Ordering Facility: [facility] Address: [address] [place] [address] Performed By: #### 2 4331-1 #### [facility] CLIA [id number] [address] [place] [address] [place] [facility] CLIA [id number] [address] [place] [address] [place] #### 3016-3 #### [facility] CLIA [id number] [address] [place] [address] [place] FASTING TIME 12 hrs Normal [facility] Comment on above: Order Comment: Speci men Type: BLOOD SPECIMEN Ordering Facility: [facility] Address: [address] [place] [address] Performed By: #### 2 4331-1 #### [facility] CLIA [id number] [address] [place] [address] [place] [facility] CLIA [id number] [address] [place] [address] [place] #### 3016-3 #### [facility] CLIA [id number] [address] [place] [address] [place] Triglyceride [Mass/Vol] 70 mg/dL Normal <150 [facility] Comment on above: Order Comment: Speci men Type: BLOOD SPECIMEN Ordering Facility: [facility] Address: [address] [place] [address] Result Comment: <150 mg/dL, Normal 150-199 mg/dL, Borderline high 200-499 mg/dL, High >499 mg/dL, Very high Performed By: #### 2 4331-1 #### [facility] CLIA [id number] [address] [place] [address] [place] [facility] CLIA [id number] [address] [place] [address] [place] #### 3016-3 #### [facility] CLIA [id number] [address] [place] [address] [place] TSH SerPl-aCncon 12-28-2023 TSH Qn 2.900 m[IU]/L Normal 0.270-4.200 [facility] Comment on above: Order Comment: Speci men Type: BLOOD SPECIMEN Ordering Facility: [facility] Address: [address] [place] [address] Performed By: #### 2 4331-1 #### [facility] CLIA [id number] [address] [place] [address] [place] [facility] CLIA [id number] [address] [place] [address] [place] #### 3016-3 #### [facility] CLIA [id number] [address] [place] [address] [place] Mold Tooling Technician Office Visit Reporton 12-11-2023 Mold Tooling Technician Office Visit Report [facility] [address], [address] [place] [address] OFFICE VISIT Date of Service: 12/11/23 MR#: [id number] Acct: [id number] Name: ALFONSO VERDUGO Rep #: [id number] : 1960 Provider: Dr. Rose Marie florez MD Age/Sex: 63/F [place] [facility] [place]: Signed Intake Vital Signs 10/11/23 08:49 12/11/23 13:37 Height 5 ft 6 in 5 ft 6 in BP 127/82 H Intake Visit Reasons: Colposcopy Chief Complaint: colposcopy Bench Examiner Required: No Is patient in pain?: No [...] Q24H #30 caps 10/26/23 12/11/23 Rx mg capsule,ext.raxulng75ky multphas (Qsymia) Is last menstrual period known: [...] Weight Infant [facility] FOB [facility] Vasyl-1989 Unknown Yobany-1993 [...] complications. Coding Level of Care Code Attention Aircraft Mechanic Armament Diagnoses Abnormal Pap smear of cervix R87.619 CPT Codes Colposcopy - Cervix+upper/adj vag+bx cervix: Yes (34678) Assessment and Plan Assessment and Plan (1) Abnormal Pap smear of cervix: Status: Acute Comment: repeat pap and hpv 2023- ascus hpv pos, biopsies done at [facility] 12/12. Orders: Orders Colposcopy Today R87.619 - Unspecified abnormal cytological findings in specimens from cervix uteri 12/11/23 1415 Date Rose Marie Ugarte (more content not included)... Normal [facility] SCRN MAMM (CAD)W/PRISCILA BILATo n 12-11-2023 SCRN MAMM (CAD)W/PRISCILA BILAT [facility] Services [address] [place] [address] [id number] SCRN MAMM (CAD)W/PRISCILA BILAT MR#: [id number] Acct: [id number] Name: ALFONSO VERDUGO PASCALE Rep #: [id number] : 1960 F 63 From: Thaddeus chaudhry MD PCP: Dr. Millie Payton MD Status: [facility] Study: SCRN MAMM (CAD)W/PRISCILA BILAT Date of Exam: 11/20 04/14 Exam# [id number] Ordering Dr: Rose Marie Brush [id number] MAMMOGRAPHY - BILATERAL SCREENING REASON FOR EXAM: [...] delay biopsy of a clinically suspicious abnormality. [id number] Electronically Signed: Thaddeus May MD at 14:12 EDT , CC: Dr. Millie Payton MD; Dr. 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 Rose Marie Brush MD Specimen: [id number] Received: 12/12/23 Status: CASS Glez Num: [id number] Spec Type: CERV Subm Dr: Dr. Rose Marie Brush MD HEADER OPERATION: Colposcopy PRE-OP DIAGNOSIS: Abnormal pap smear of cervix/ HPV test positive TISSUE SUBMITTED: A- 6o'clock, B- 8o'clock MICROSCOPIC DIAGNOSIS A. Cervix, 6o'clock, biopsy: Rare glandular mucosa present. B. Cervix, 8o'clock, biopsy: Minimal chronic inflammation. HPV change present See comment. AM 12/13/2023 COMMENT B. Immunohistochemistry ([id number]) for surrogate HPV marker (p16) shows weak, [...] totally submitted in one cassette. 12/12/2023 TC:3 [facility]:[id number] Patient Age/Sex Location Account Attending Physician ALFONSO VERDUGO 63/F [facility] [id number] Dr. Rose Marie Brush MD Signed (signature on file) Dr. Aly Lundberg DO 12/14/23 1418 Normal [facility] Comment on above: Performed By: #### P SUIV #### [facility] [address] [place] [address], [address] p16 (initial)on 12-11-2023 p16 (initial) --- Patient Age/Sex Location Account Attending Physician ALFONSO VERDUGO 63/F [facility] [id number] Dr. Rose Marie Brush MD Specimen: [id number] Received: 12/14/23 Status: CASS Glez Num: [id number] Spec Type: IMMUNO Subm Dr: Dr. Rose Marie Brush MD [facility]STIT[facility] [address] [address] SPECIMEN INFORMATION: Tissue Source: B- 8o'clock Clinical Info: Abnormal pap smear of cervix, HPV positive test Specimen Number: [id number] CPT code: 26181,82565 METHODOLOGY: Deparaffinized sections of prefer/formalin-fixed tissue or [...] developed and their performance characteristics determined by [facility]. They may not have been cleared [...] file) Dr. Aly Lundberg, 12/14/23 1458 Normal [facility] Comment on above: Performed By: #### P P16 ####[facility] [address] [place], [place], [id number] PAP IG HPV APTIMA 16/18,45on 10-17-2023 ADEQ Comment Normal . [facility] Comment on above: Order Comment: Speci men Comment: [id number] Comment: Source.............Cervix;EndocervixSpecimen Comment: Other..............Post MenopausalSpecimen Comment: No. of containers..01 ThinPrep Vial Result Comment: Sati sfactory for evaluation. Endocervical and/or squamous metaplastic cells (endocervical component) are present. Performed By: #### L 7400.0280 ####[facility] [address] [place], [place], [id number] COMM . Normal . [facility] Comment on above: Order Comment: Speci men Comment: [id number] Comment: Source.............Cervix;EndocervixSpecimen Comment: Other..............Post MenopausalSpecimen Comment: No. of containers..01 ThinPrep Vial Performed By: #### L 7400.0280 ####[facility] [address] [place], [place], [id number] COMMENT Comment Normal . [facility] Comment on above: Order Comment: Speci men Comment: [id number] Comment: Source.............Cervix;EndocervixSpecimen Comment: Other..............Post MenopausalSpecimen Comment: No. of containers..01 ThinPrep Vial Result Comment: This liquid based ThinPrep(R) pap test was screened with the use of an image guided system. Performed By: #### L 7400.0280 ####[facility] [address] [place], [place], [id number] DIAG Comment Abnormal . [facility] Comment on above: Order Comment: Speci men Comment: [id number] Comment: Source.............Cervix;EndocervixSpecimen Comment: Other..............Post MenopausalSpecimen Comment: No. of containers..01 ThinPrep Vial Result Comment: EPIT HELIAL CELL ABNORMALITY. ATYPICAL SQUAMOUS CELLS OF UNDETERMINED SIGNIFICANCE (ASC-US). CELLULAR CHANGES ASSOCIATED WITH ATROPHY ARE PRESENT. Performed By: #### L 7400.0280 ####[facility] [address] [place], [place], [address] HPV APTIMA, HR Positive Abnormal Negative [facility] Comment on above: Order Comment: Speci men Comment: [id number] Comment: Source.............Cervix;EndocervixSpecimen Comment: Other..............Post MenopausalSpecimen Comment: No. of containers..01 ThinPrep Vial Result Comment: This nucleic acid amplification test detects fourteen high- risk HPV types (16,18,31,33,35,39,45,51,52,56,58,59,66,68) without differentiation. Performed By: #### L 7400.0280 ####[facility] [address] [place], [place], [id number] HPV Roxann Rfx Comment Normal . [facility] Comment on above: Order Comment: Speci men Comment: [id number] Comment: Source.............Cervix;EndocervixSpecimen Comment: Other..............Post MenopausalSpecimen Comment: No. of containers..01 ThinPrep Vial Result Comment: Crit eria not met, HPV Genotype not performed. Performed at: - [address] [id number] Medical Insurance Coding Specialist: Deanne Trevino MD, Phone: [phone] Performed at: = - [address] [id number] Medical Insurance Coding Specialist: Deanne Trevino MD, Phone: [phone] Performed By: #### L 7400.0280 ####[facility] [address] [place], [place], [id number] PAPSMR Comment Normal . [facility] Comment on above: Order Comment: Speci men Comment: [id number] Comment: Source.............Cervix;EndocervixSpecimen Comment: Other..............Post MenopausalSpecimen Comment: No. [...] do occur. Performed By: #### L 7400.0280 ####[facility] [address] [place], [address] Path.prov.IDC-9 Comment Normal . [facility] Comment on above: Order Comment: Speci men Comment: [id number] Comment: Source.............Cervix;EndocervixSpecimen Comment: Other..............Post MenopausalSpecimen Comment: No. of containers..01 ThinPrep Vial Result Comment: R87. 610 Performed By: #### L 7400.0280 ####[facility] [address] [place], [place], [address] PERFORM Comment Normal . [facility] Comment on above: Order Comment: Speci men Comment: [id number] Comment: Source.............Cervix;EndocervixSpecimen Comment: Other..............Post MenopausalSpecimen Comment: No. of containers..01 ThinPrep Vial Result Comment: Licha Wade Shot Core Drill Operator (ASCP) Performed By: #### L 7400.0280 ####[facility] [address] [place], [place], [address] SIGN Comment Normal . [facility] Comment on above: Order Comment: Speci men Comment: [id number] Comment: Source.............Cervix;EndocervixSpecimen Comment: Other..............Post MenopausalSpecimen Comment: No. of containers..01 ThinPrep Vial Result Comment: Lorena Figueroa MD, Pathologist Performed By: #### L 7400.0280 ####[facility] [address] [place], [address] Mold Tooling Technician Office Visit Reporton 10-11-2023 Mold Tooling Technician Office Visit Report [facility] [address], [address] [place] [address] OFFICE VISIT Date of Service: 10/11/23 MR#: [id number] Acct: [id number] Name: ALFONSO VERDUGO PASCALE Rep #: [id number] : 1960 Provider: Dr. 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 History 3 Elective abortions Hx Para 2 Spontaneous abortions 1 Hx # Term Pregnancies Ectopic pregnancies Hx # Pregnancies Multiple births # of living children Past Pregnancies Del. Date Name GA/Weeks Outcome Route Bth Weight Gen Labor Lgth Anesthesia Del [facility] Provider FOB Unknown Vasyl-1989 Unknown Yobany-1993 HPI [...] acute distress, well developed and well groomed [facility] Head: normal to inspection and [...] to inspectio (more content not included)... Normal [facility] URINE CULTURE [CCL]on 2023 Bacteria identified Cx Nom (U) URCUL See Results Below See Below CULTURE, URINE NORMAL UROGENITAL [place] <10,000 CFU/ml Normal urogenital oneida SOURCE: Urine (Nonspecific) [place] [address] Dale Benoit III, M.D. [id number] SEND TO IC NO Normal [facility] Comment on above: Performed By: #### 2 02401 #### [facility],[address] [place], [place] [address] Bacteria Ur Culton 4 Bacteria identified Cx Nom (U) ORGANISM ID: 1 <10,000 CFU/ml Normal urogenital [place] Normal [facility] Comment on above: Performed By: #### 6 30-4 #### [facility] CLIA [id number] [address] [place], [place] [address] [place] URINALYSIS WITH MICROSCOPYon 08-02-2023 Amorphous NONE Normal [facility] Comment on above: Performed By: #### 2 30255 #### [facility],[address] [place] [address] Bacteria NONE Normal [facility] Comment on above: Performed By: #### 2 81868 #### [facility],[address] [place] [address] Bilirubin Ql (U) Negative Normal NORMAL: NEGATIVE [facility] Comment on above: Performed By: #### 2 87518 #### [facility],[address] [place] [address] Calcium Ox 2+ Normal NORMAL: NONE [facility] Comment on above: Performed By: #### 2 23033 #### [facility],[address] [place] [address] Casts NONE Normal [facility] Comment on above: Performed By: #### 2 79249 #### [facility],[address] [place] [address] Clarity (U) CLEAR Normal NORMAL: CLEAR [facility] Comment on above: Performed By: #### 2 58124 #### [facility],[address] [place] [address] Color (U) rosa Normal NORMAL: YELLOW [facility] Comment on above: Performed By: #### 2 02606 #### [facility],[address] [place] [address] Crystals LM Nom (Urine sed) SEE BELO Normal [facility] Comment on above: Performed By: #### 2 55132 #### [facility],[address] [place] [address] Epi Cells NONE Normal [facility] Comment on above: Performed By: #### 2 56711 #### [facility],[address] [place] [address] Glucose Ql (U) NORM Normal NORMAL: NORMAL [facility] Comment on above: Performed By: #### 2 07390 #### [facility],[address] [place] [address] Hemoglobin Ql (U) 10 Abnormal NORMAL: NEGATIVE [facility] Comment on above: Performed By: #### 2 72020 #### [facility],[address] [place] [address] Ketone 15 Abnormal NORMAL: NEGATIVE [facility] Comment on above: Performed By: #### 2 23920 #### [facility],[address] [place] [address] Leukocytes 25 Abnormal NORMAL: NEGATIVE [facility] Comment on above: Result Comment: URIN E MICROSCOPIC Performed By: #### 2 80932 #### [facility],[address] [place], [place] [address] Mucous NONE Normal [facility] Comment on above: Performed By: #### 2 37892 #### [facility],[address] [place] [address] Nitrite Ql (U) Negative Normal NORMAL: NEGATIVE [facility] Comment on above: Performed By: #### 2 74571 #### [facility],[address] [place] [address] pH (U) 5 [pH] Normal NORMAL: 5.0-8.0 [facility] Comment on above: Performed By: #### 2 50385 #### [facility],[address] [place] [address] Protein Ql (U) 15 Abnormal NORMAL: NEGATIVE [facility] Comment on above: Performed By: #### 2 48144 #### [facility],[address] [place] [address] Rbc 0-5 Normal 0-3 / hpf [facility] Comment on above: Performed By: #### 2 16105 #### [facility],[address] [place] [address] Sp [place] 1.030 Normal NORMAL: 1.010-1.030 [facility] Comment on above: Performed By: #### 2 27564 #### [facility],[address] [place] [address] Specimen Type R Normal [facility] Comment on above: Performed By: #### 2 99655 #### [facility],[address] [place] [address] URINALYSIS WITH MICROSCOPY Normal [facility] Comment on above: Result Comment: URIN ALYSIS Performed By: #### 2 55502 #### [facility],[address] [place] [address] Urobilinog 1 Abnormal NORMAL: NORMAL [facility] Comment on above: Performed By: #### 2 58606 #### [facility],[address] [place] [address] Wbc 1-5 Normal 0-5 / hpf [facility] Comment on above: Performed By: #### 2 82005 #### [facility],[address] [place] [address] Yeast NONE Normal [facility] Comment on above: Performed By: #### 2 14216 #### [facility],[address] [place] [address] Laboratory - Chemistry and C hemistry - challengeOrdered By: Rose Marie Brush on 03-01-2023 Free T4 [Mass/Vol] 1.21 ng/dL 0.76-1.46 [facility] No Panel InformationOrdered By: Rose Marie Brush on 03-01-2023 Thyroid Stimulating Hormone (TSH) 2.34 uIU/mL 0.358-3.74 [facility] CNPNon 01-01-2023 CNPN Telephone (CARCMN) ALFONSO VERDUGO ([id number]) 1960 F Date Time Provider Department 01/01/23 VINH KAPADIA During your visit today, we recorded the following information about you: Bo Shipley 01/01/2023 9:38 AM Signed ECHO order faxed to [facility] at [phone]. Bo Shipley Allergies As of Date: 01/01/2023 [...] Status:Closed by BO SHIPLEY on 01/01/23 Normal [facility] Absolute lymphocyte countOrd ered By: Rose Marie Brush on 12-19-2022 Lymphocytes Auto (Unsp spec) [#/Vol] 1.93 10*3/uL 0.83-4.51 [facility] Basophil percentageOrdered B y: Rose Marie Brush on 12-19-2022 Basophils/100 WBC (Bld) 0.8 % 0-1 [facility] Bilirubin [Mass/Vol] 0.40 mg/dL 0.20-1.00 [facility] Comment on above: For patients on eltr ombopag therapy, use of Dimension Latty TBIL is not recommended. Chloride [Moles/Vol] 107 mmol/L 98-107 [facility] Eosinophils/100 WBC (Bld) 1.9 % 0-5 [facility] Glucose [Mass/Vol] 94 mg/dL 74-106 [facility] Neutrophils (Bld) [#/Vol] 2.8 10*3/uL 2.0-7.7 [facility] Neutrophils/100 WBC (Bld) 53.7 % 47-70 [facility] Potassium [Moles/Vol] 3.9 mmol/L 3.5-5.1 [facility] Protein [Mass/Vol] 7.9 g/dL 6.4-8.2 [facility] Sodium [Moles/Vol] 138 mmol/L 136-145 [facility] WBC (Bld) [#/Vol] 5.2 10*3/uL 4.4-11.0 [facility] Blood erythrocytes count (nu mber/volume)Ordered By: Rose Marie Brush on 12-19-2022 RBC (Bld) [#/Vol] 5.04 10*6/uL 4.2-5.4 [facility] Blood hemoglobin measurement (mass/volume)Ordered By: Rose Marie Brush on 12-19-2022 Hemoglobin (Bld) [Mass/Vol] 13.8 g/dL 12.0-15.0 [facility] Blood lymphocytes/100 leukoc ytesOrdered By: Rose Marie Brush on 12-19-2022 Lymphocytes/100 WBC (Bld) 36.9 % 19-41 [facility] Blood monocytes/100 leukocyt esOrdered By: Rose Marie Brush on 12-19-2022 Monocytes/100 WBC (Bld) 6.5 % 0-10 [facility] Blood platelet mean volumeOr dered By: Rose Marie Brush on 12-19-2022 Platelet mean volume (Bld) [Entitic vol] 10.4 fL 6.2-12.0 [facility] Determination of erythrocyte mean corpuscular volume (MCV)Ordered By: Rose Marie Brush on 12-19-2022 MCV (RBC) [Entitic vol] 87.1 fL 81-99 [facility] Hematocrit Auto (Bld) [Volum e fraction]Ordered By: Rose Marie Brush on 12-19-2022 Hematocrit (Bld) [Volume fraction] 43.9 % 37-47 [facility] - Chemistry and C hemistry - challengeOrdered By: Rose Marie Brush on 12-19-2022 ALP [Catalytic activity/Vol] 111 U/L 45-117 [facility] ALT [Catalytic activity/Vol] 23 U/L 13-56 [facility] CO2 [Moles/Vol] 28.0 mmol/L 21.0-32.0 [facility] Globulin (S) [Mass/Vol] 4.3 g/dL 2.2-4.2 [facility] Urea nitrogen/Creatinine [Mass ratio] 17.6 mg/mg 10-20 [facility] - Chemistry and C hemistry - challengeOrdered By: Fabi Alfonso on 12-19-2022 Free T4 [Mass/Vol] 1.55 ng/dL 0.76-1.46 [facility] - Hematology and Cell countsOrdered By: Rose Marie Brush on 12-19-2022 Erythrocyte distribution width (RBC) [Entitic vol] 48.2 fL 35.1-43.9 [facility] Erythrocyte distribution width (RBC) [Ratio] 15.0 % 11.6-14.6 [facility] Immature granulocytes/100 WBC (Bld) 0.200 % 0.0-0.9 [facility] Comment on above: IG% - Immature Granu locytes (promyelocytes, myelocytes and metamyelocytes) > 1% indicates that a LEFT SHIFT is Present. MCH (RBC) [Entitic mass] 27.4 pg 27.0-32.0 [facility] Nucleated RBC/100 WBC (Bld) [Ratio] 0 % 0-5 [facility] MCHC Auto (RBC) [Mass/Vol]Or dered By: Rose Marie Brush on 12-19-2022 MCHC (RBC) [Mass/Vol] 31.4 g/dL 32-36 [facility] No Panel InformationOrdered By: Rose Marie Brush on 12-19-2022 Estimated GFR (MDRD) Amer 103 mL/min >60 [facility] Comment on above: GFR Calc Estimated GFR (MDRD) Non-Af Amer 85 mL/min >60 [facility] Comment on above: Non- GFR Calc Thyroid Stimulating Hormone (TSH) 1.45 uIU/mL 0.358-3.74 [facility] Vitamin D 25-Hydroxy 31.4 ng/mL [facility] Comment on above: Vitamin D 25(OH) Sta tus Range Deficiency <20 ng/mL (50nmol/L) Insufficiency 20 - 30 ng/mL (50 - 75 nmol/L) Sufficiency 30 - 100 ng/mL (75 - 250 nmol/L) Toxicity >100 ng/mL (>250 nmol/L) Platelets bldOrdered By: Justin Brush on 12-19-2022 Platelets (Bld) [#/Vol] 318 10*3/uL 150-450 [facility] Serum or plasma albumin alisa urement (mass/volume)Ordered By: Rose Marie Brsuh on 12-19-2022 Albumin [Mass/Vol] 3.6 g/dL 3.2-5.0 [facility] Serum or plasma albumin/glob ulin mass ratioOrdered By: Rose Marie Brush on 12-19-2022 Albumin/Globulin [Mass ratio] 0.8 {ratio} 0.9-2.4 [facility] Serum or plasma calcium alisa urement (mass/volume)Ordered By: Rose Marie Brush on 12-19-2022 Calcium [Mass/Vol] 8.7 mg/dL 8.5-10.1 [facility] Serum or plasma creatinine m easurement (mass/volume)Ordered By: Rose Marie Brush on 12-19-2022 Creatinine [Mass/Vol] 0.74 mg/dL 0.55-1.02 [facility] Comment on above: The validity of the calculated GFR & GFRAA in patients over 70 years has not been determined. Clinical correlation is essential. Serum or plasma urea nitroge n measurement (mass/volume)Ordered By: Rose Marie Brush on 12-19-2022 Urea nitrogen [Mass/Vol] 13 mg/dL 7-18 [facility] Thin prep Papanicolaou smear with manual screeningOrdered By: Rose Marie Brush on 12-19-2022 Thin prep Papanicolaou smear with manual screening 11 U/L 15-37 [facility] Thin prep Papanicolaou smear with manual screening 3 5-15 [facility] Whole blood hemoglobin A1c/t otal hemoglobin ratio (mass fraction)Ordered By: Rose Marie Brush on 12-19-2022 HbA1c (Bld) [Mass fraction] 5.6 % 3.8-5.6 [facility] Comment on above: Normal < 5.7 % Predi abetic 5.7 - 6.4 % Diabetic >or= 6.5 % Please note range changes. Cervical or vagninal specime n microscopic examination by cytology stain (reported asOrdered By: Rose Marie Brush on 10-05-2022 Cytology report Cyto stain Doc (Cvx/Vag) Comment . [facility] Comment on above: The Pap smear is [...] DNA Probe+sig amp Ql (Cvx) Positive Negative [facility] Comment on above: This nucleic acid am plification test detects fourteen high-risk HPV types (16,18,31,33,35,39,45,51,52,56,58,59,66,68)without differentiation. Laboratory - CytologyOrdered By: Rose Marie Brush on 10-05-2022 Rotating Field Assembler Cyto stain Nom (Cvx/Vag) [ID] Comment . [facility] Comment on above: Leanna Pate, Cytot echnologist (ASCP) Pathologist Cyto stain Nom (Cvx/Vag) [ID] Comment . [facility] Comment on above: Mandy Figueroa MD, P athologist Laboratory - Miscellaneous t estsOrdered By: Rose Marie Brush on 10-05-2022 Service comment (Unsp spec) [Interp] Comment . [facility] Comment on above: This liquid based Th inPrep(R) pap test was screened withthe use of an image guided system. Service comment (Unsp spec) [Interp] . . [facility] Liquid-based cerv Pap + CT/G C by ABNER w reflex to high-risk HPV for ASCUSOrdered By: Rose Marie Brush on 10-05-2022 Cytology report Cyto stain.thin prep Doc (Cvx/Vag) Comment . [facility] Comment on above: Criteria not met, HP V Genotype not performed.Performed at: - [facility] [id number] Director: Deanne Trevino MD, Phone: [phone] at: = - [facility] [id number] Director: Deanne Trevino MD, Phone: [phone] No Panel InformationOrdered By: Rose Marie Brush on 10-05-2022 Pathology report final diagnosis Narrative Comment . [facility] Comment on above: EPITHELIAL CELL ABNO RMALITY.ATYPICAL SQUAMOUS CELLS OF UNDETERMINED SIGNIFICANCE (ASC-US).CELLULAR CHANGES ASSOCIATED WITH ATROPHY ARE PRESENT. R87.610 MRI BRAIN WO IVCONon 023 [facility] Cervical or vagninal specime n microscopic examination by cytology stain (reported ason 09-30-2021 Cytology report Cyto stain Doc (Cvx/Vag) Comment . [facility] Work Phone: Comment on above: The Pap [...] DNA Probe+sig amp Ql (Cvx) Positive Negative [facility] Work Phone: Comment on above: This nucleic acid am plification test detects fourteen high-risk HPV types (16,18,31,33,35,39,45,51,52,56,58,59,66,68)without differentiation.Performed at: - [facility] [id number] Director: Deanne Trevino MD, Phone: [phone] at: = - [facility] [address] [id number] Director: Deanne Trevino MD, Phone: [phone] Laboratory - Cytologyon 09-19 [employer] Cyto stain Nom (Cvx/Vag) [ID] Comment . [facility] Work Phone: Comment on above: Julio Rubio , Shot Core Drill Operator (ASCP) Pathologist Cyto stain Nom (Cvx/Vag) [ID] Comment . [facility] Work Phone: Comment on above: Angela Corea MD, Pa thologist Recommended follow-up Cyto stain Nom (Cvx/Vag) Comment . [facility] Work Phone: Comment on above: Suggest follow up as clinically appropriate. Laboratory - Miscellaneous t estson 09-30-2021 Service comment (Unsp spec) [Interp] Comment . [facility] Work Phone: Comment on above: This liquid based Th inPrep(R) pap test was screened withthe use of an image guided system. Service comment (Unsp spec) [Interp] . . [facility] Work Phone: No Panel Informationon 09-30 Pathology report final diagnosis Narrative Comment . [facility] Work Phone: Comment on above: EPITHELIAL CELL ABNO RMALITY.ATYPICAL SQUAMOUS CELLS OF UNDETERMINED SIGNIFICANCE (ASC-US). R87.610 25-Hydroxy D2+D3on 25-Hydroxy D Total 25.7 ng/mL Low 30.0-100.0 [facility] Comment on above: Performed By: #### D 2D3 #### [facility] Chemistry [address] [address] 25-Hydroxy D2 <4.0 Normal [facility] Comment on above: Performed By: #### D 2D3 #### [facility] Chemistry [address] [place], [place] [address] 25-Hydroxy D3 25.7 ng/mL Normal [facility] Comment on above: Performed By: #### D 2D3 #### [facility] Chemistry [address] [place], [place] [address] Vital Signs Date Time Vital Sign Value Performing Clinician Megan groves 09-08-2024 15:57-0400 Body height 167.[address] Millie Payton MD Work Phone: [facility] 09-08-2024 15:51-0400 Body mass index (BMI) [Ratio] 34.5 kg/m2 Dr. Millie Payton MD Work Phone: [facility] 09-08-2024 15:51-0400 Body weight 97.[address] Millie Payton MD Work Phone: [facility] 09-08-2024 15:51-0400 Diastolic blood pressure 80 mm[Hg] Dr. Millie Payton MD Work Phone: [facility] 09-08-2024 15:51-0400 Heart rate 88 /min Dr. Millie Payton MD Work Phone: [facility] 09-08-2024 15:51-0400 Systolic blood pressure 132 mm[Hg] Dr. Millie Payton MD Work Phone: [facility] 08-20-2024 23:35-0400 Body temperature 98.1 [degF] Dr. Millie Payton MD Work Phone: [facility] 08-20-2024 23:35-0400 Diastolic blood pressure 83 mm[Hg] Dr. Millie Payton MD Work Phone: [facility] 08-20-2024 23:35-0400 Heart rate 70 /min Dr. Millie Payton MD Work Phone: [facility] 08-20-2024 23:35-0400 Respiratory rate 16 /min Dr. Millie Payton MD Work Phone: [facility] 08-20-2024 23:35-0400 SaO2% (BldA) [Mass fraction] 100 % Dr. Millie Payton MD Work Phone: [facility] 08-20-2024 23:35-0400 Systolic blood pressure 149 mm[Hg] Dr. Millie Payton MD Work Phone: [facility] 08-20-2024 21:14-0400 Body height 167.[address] Millie Payton MD Work Phone: 8(651)930-635461 [place] [address] 08-14-2024 09:11-0400 Body height 167.[address] Millie Payton MD Work Phone: 3(051)735-127461 [place] [address] 08-14-2024 09:11-0400 Body mass index (BMI) [Ratio] 35 kg/m2 Dr. Millie Payton MD Work Phone: 5(856)109-474461 [place] [address] 08-14-2024 09:11-0400 Body temperature 97.3 [degF] Dr. Millie Payton MD Work Phone: 5(640)922-433061 [place] [address] 08-14-2024 09:11-0400 Body weight 98.[address] Millie Payton MD Work Phone: 3(468)780-871761 [place] [address] 08-14-2024 09:11-0400 Diastolic blood pressure 77 mm[Hg] Dr. Millie Payton MD Work Phone: 9(868)866-734561 [place] [address] 08-14-2024 09:11-0400 Heart rate 78 /min Dr. Millie Payton MD Work Phone: [facility] 08-14-2024 09:11-0400 Respiratory rate 18 /min Dr. Millie Payton MD Work Phone: [facility] 08-14-2024 09:11-0400 SaO2% (BldA) [Mass fraction] 99 % Dr. Millie Payton MD Work Phone: [facility] 08-14-2024 09:11-0400 Systolic blood pressure 135 mm[Hg] Dr. Millie Payton MD Work Phone: 6(745)143-535761 [place] [address] 08-13-2024 16:25-0400 Body temperature 97.5 [degF] Dr. Millie Payton MD Work Phone: 6(639)454-965761 [place] [address] 08-13-2024 16:25-0400 Diastolic blood pressure 62 mm[Hg] Dr. Millie Payton MD Work Phone: 9(177)133-082816 [address] 08-13-2024 16:25-0400 Heart rate 65 /min Dr. Millie Payton MD Work Phone: 8(722)181-539216 [address] 08-13-2024 16:25-0400 Respiratory rate 17 /min Dr. Millie Payton MD Work Phone: 1(254)577-888861 [place] [address] 08-13-2024 16:25-0400 SaO2% (BldA) [Mass fraction] 99 % Dr. Millie Payton MD Work Phone: 6(089)718-280561 [place] [address] 08-13-2024 16:25-0400 Systolic blood pressure 128 mm[Hg] Dr. Millie Payton MD Work Phone: 7(828)526-123961 [place] [address] 08-13-2024 10:41-0400 Body height 167.[address] Millie Payton MD Work Phone: 1(168)081-765761 [place] [address] 08-13-2024 10:41-0400 Body mass index (BMI) [Ratio] 33.4 kg/m2 Dr. Millie Payton MD Work Phone: 4(590)535-070661 [place] [address] 08-13-2024 10:41-0400 Body weight 93.[address] Millie Payton MD Work Phone: 7(205)077-487361 [place] [address] 08-04-2024 08:20-0400 Body temperature 97.2 [degF] Dr. Millie Payton MD Work Phone: 4(806)725-785061 [place] [address] 08-04-2024 08:20-0400 Diastolic blood pressure 77 mm[Hg] Dr. Millie Payton MD Work Phone: 3(436)230-969361 [place] [address] 08-04-2024 08:20-0400 Heart rate 55 /min Dr. Millie Payton MD Work Phone: 1(182)032-250416 [address] 08-04-2024 08:20-0400 Respiratory rate 16 /min Dr. Millie Payton MD Work Phone: 1(404)890-915018 [place] [address] 08-04-2024 08:20-0400 SaO2% (BldA) [Mass fraction] 100 % Dr. Millie Payton MD Work Phone: 4(811)420-501418 [place] [address] 08-04-2024 08:20-0400 Systolic blood pressure 113 mm[Hg] Dr. Millie Payton MD Work Phone: 7(837)889-685318 [place] [address] 08-04-2024 06:48-0400 Body height 167.[address] Millie Payton MD Work Phone: 2(731)328-692318 [place] [address] 08-04-2024 06:48-0400 Body mass index (BMI) [Ratio] 33.4 kg/m2 Dr. Millie Payton MD Work Phone: 2(960)637-251618 [place] [address] 08-04-2024 06:48-0400 Body weight [address] Millie Payton MD Work Phone: 9(151)539-927818 [place] [address] 05-30-2024 11:34-0400 Body mass index (BMI) [Ratio] 34 kg/m2 Dr. Millie Payton MD Work Phone: 8(115)518-498118 [place] [address] 05-30-2024 11:34-0400 Body weight 95.[address] Millie Payton MD Work Phone: 0(316)582-927118 [place] [address] 05-30-2024 11:34-0400 Diastolic blood pressure 84 mm[Hg] Dr. Millie Payton MD Work Phone: [facility] 05-30-2024 11:34-0400 Heart rate 71 /min Dr. Millie Payton MD Work Phone: [facility] 05-30-2024 11:34-0400 Systolic blood pressure 125 mm[Hg] Dr. Millie Payton MD Work Phone: [facility] 04-30-2024 08:41-0400 Body mass index (BMI) [Ratio] 33.7 kg/m2 Dr. Millie Payton MD Work Phone: [facility] 04-30-2024 08:41-0400 Body weight 94.[address] Millie Payton MD Work Phone: [facility] 04-30-2024 08:41-0400 Diastolic blood pressure 82 mm[Hg] Dr. Millie Payton MD Work Phone: [facility] 04-30-2024 08:41-0400 Heart rate 77 /min Dr. Millie Payton MD Work Phone: [facility] 04-30-2024 08:41-0400 Systolic blood pressure 130 mm[Hg] Dr. Millie Payton MD Work Phone: [facility] 04-03-2024 13:30-0500 Body mass index (BMI) [Ratio] 33.9 kg/m2 Dr. Millie Payton MD Work Phone: [facility] 04-03-2024 13:30-0500 Body weight 95.[address] Millie Payton MD Work Phone: [facility] 04-03-2024 13:30-0500 Diastolic blood pressure 84 mm[Hg] Dr. Millie Payton MD Work Phone: [facility] 04-03-2024 13:30-0500 Heart rate 67 /min Dr. Millie Payton MD Work Phone: [facility] 04-03-2024 13:30-0500 Systolic blood pressure 133 mm[Hg] Dr. Millie Payton MD Work Phone: [facility] 12-26-2022 09:14-0500 Diastolic blood pressure 94 mm[Hg] Vinh Kapadia MD Work Phone: [facility] 12-26-2022 09:14-0500 Systolic blood pressure 155 mm[Hg] Vinh Kapadia MD Work Phone: [facility] 12-26-2022 09:06-0500 Body height 167.6 cm Vinh Kapadia MD Work Phone: [facility] 12-26-2022 09:06-0500 Body weight 99.79 kg Vinh Kapadia MD Work Phone: [facility] 12-26-2022 09:06-0500 Heart rate 71 /min Vinh Kapadia MD Work Phone: [facility] 12-26-2022 09:06-0500 SaO2% (BldA) [Mass fraction] 98 % Vinh Kapadia MD Work Phone: [facility] 11-23-2022 14:28-0400 Body height 167.[address] Millie Payton Work Phone: [facility] 11-23-2022 14:27-0400 Body mass index (BMI) [Ratio] 36.9 kg/m2 Dr. Millie Payton Work Phone: [facility] 11-23-2022 14:27-0400 Body weight 103.[address] Millie Payton Work Phone: [facility] 11-23-2022 14:27-0400 Diastolic blood pressure 90 mm[Hg] Dr. Millie Payton Work Phone: [facility] 11-23-2022 14:27-0400 Systolic blood pressure 142 mm[Hg] Dr. Millie Payton Work Phone: [facility] 10-05-2022 16:10-0400 Body height 167.[address] Millie Payton Work Phone: [facility] 10-05-2022 16:10-0400 Body mass index (BMI) [Ratio] 36.3 kg/m2 Dr. Millie Payton Work Phone: [facility] 10-05-2022 16:10-0400 Body weight 102.[address] Millie Payton Work Phone: [facility] 10-05-2022 16:10-0400 Diastolic blood pressure 84 mm[Hg] Dr. Millie Payton Work Phone: [facility] 10-05-2022 16:10-0400 Systolic blood pressure 138 mm[Hg] Dr. Millie Payton Work Phone: [facility] 09-30-2021 11:17-0400 Body height 167.[address] Millie Payton Work Phone: [facility] Work Phone: 09-30-2021 11:16-0400 Body mass index (BMI) [Ratio] 36.3 kg/m2 Dr. Millie Payton Work Phone: [facility] Work Phone: 09-30-2021 11:16-0400 Body weight 102.[address] Millie Payton Work Phone: [facility] Work Phone: 09-30-2021 11:16-0400 Diastolic blood pressure 74 mm[Hg] Dr. Millie Payton Work Phone: [facility] Work Phone: 09-30-2021 11:16-0400 Systolic blood pressure 102 mm[Hg] Dr. Millie Payton Work Phone: [facility] Work Phone: 08-09-2021 10:14-0400 Body height 167.6 cm Romero Pelletier MD Work Phone: [facility] 08-09-2021 10:14-0400 Body temperature 97.3 [degF] Romero Pelletier MD Work Phone: [facility] 08-09-2021 10:14-0400 Body weight 94.35 kg Romero Pelletier MD Work Phone: [facility] 08-09-2021 10:14-0400 Diastolic blood pressure 73 mm[Hg] Romero Pelletier MD Work Phone: [facility] 08-09-2021 10:14-0400 Heart rate 64 /min Romero Pelletier MD Work Phone: [facility] 08-09-2021 10:14-0400 Respiratory rate 15 /min Romero Pelletier MD Work Phone: [facility] 08-09-2021 10:14-0400 SaO2% (BldA) [Mass fraction] 99 % Romero Pelletier MD Work Phone: [facility] 08-09-2021 10:14-0400 Systolic blood pressure 144 mm[Hg] Romero Pelletier MD Work Phone: [facility] Encounters Encounter Date Encounter Type Care Provider Facility Start: 09-08-2024 End: 09-08-[address] Rose Marie Brush MD -[facility] Work Phone: Start: 09-08-2024 End: 09-08-[address] Millie Payton MD Work Phone: -[facility] Start: 09-08-2024 End: 09-08-[address] Millie Payton MD Work Phone: -Laboratory Specimen Start: 09-08-2024 End: 09-08-2024 Patient encounter procedure Naty ARRIAZA -Laboratory Specimen Work Phone: Start: 09-08-2024 End: 09-08-2024 ambulatory Millie Payton Facility:[facility] Start: 09-01-2024 End: 09-01-2024 Patient encounter procedure Naty ARRIAZA -[facility] Work Phone: Start: 09-01-2024 End: 09-01-[address] Millie Payton MD Work Phone: -[facility] Start: 08-20-2024 End: 08-20-2024 Emergency department patient visit Dr. Millie Payton MD Work Phone: -Emergency Department Work Phone: Start: 08-14-2024 End: 08-14-[address] Jeet Roberts MD -[facility] Work Phone: Start: 08-14-2024 End: 08-14-[address] Millie Payton MD Work Phone: [facility] Work Phone: Start: 08-13-2024 End: 08-13-2024 Emergency department patient visit Dr. Millie Payton MD Work Phone: -Emergency Department Work Phone: Start: 08-04-2024 Non-patient / Non-visit Dr. Dc Lopez MD -[facility] Start: 08-04-2024 End: 08-04-2024 Admission to same day surgery center Dr. Maryellen Lopez MD -Endoscopy Work Phone: Start: 08-04-2024 End: 08-04-[address] Millie Payton MD Work Phone: [facility] Work Phone: Start: 07-15-2024 ambulatory SELF SELF Facility:[facility] Start: 05-30-2024 End: 05-30-[address] Rose Marie Brush MD -[facility] Work Phone: Start: 05-30-2024 End: 05-30-2024 ambulatory Butros Latouf Facility:[facility] Start: 04-30-2024 End: 04-30-[address] Rose Marie Brush MD -[facility] Work Phone: Start: 04-30-2024 End: 04-30-2024 ambulatory Butros Latouf Facility:[facility] Start: 04-08-2024 End: 04-08-2024 Patient encounter procedure Tracey ARRIAZA -[facility] Work Phone: Start: 04-08-2024 End: 04-08-2024 ambulatory Tracey Hudson Facility:[facility] Start: 04-01-2024 ambulatory Butros Latouf Facility: [facility] Start: 03-05-2024 End: 03-05-2024 ambulatory Tracey Hudson Facility:[facility] Start: 01-23-2024 End: 01-23-2024 ambulatory Butros Latouf Facility:[facility] Start: 01-21-2024 ambulatory MILLIE PAYTON [facility] Start: 12-31-2023 ambulatory MILLIE MA [facility] Start: 12-31-2023 Encounter for genera l adult medical examination without abnormal findings MILLIE MA [facility] Start: 12-28-2023 End: 12-28-2023 ambulatory BUTROS LATOUF Facility:[facility] Start: 12-28-2023 Encounter for genera l adult medical examination without abnormal findings MILLIE PAYTON [facility] Start: 12-11-2023 End: 12-11-2023 ambulatory Butros Latouf Facility:[facility] Start: 12-11-2023 End: 12-11-2023 ambulatory Butros Latouf Facility:[facility] Start: 10-11-2023 End: 10-11-2023 ambulatory Butros Latouf Facility:[facility] Start: 10-11-2023 End: 10-11-2023 ambulatory Butros Latouf Facility:[facility] Start: 08-02-2023 End: 08-02-20[address] [facility] Start: 03-01-2023 End: 03-01-[address] Millie Payton Work Phone: [facility] Work Phone: Start: 03-01-2023 End: 03-01-[address] Millie Payton Work Phone: [facility]Laboratory, [facility] Start: 02-07-2023 Non-patient / Non-visit Dr. Baltazar Payton Work Phone: [facility] Start: 02-07-2023 End: 02-07-[address] Millie Payton Work Phone: [facility] Work Phone: Start: 02-07-2023 End: 02-07-[address] Millie Payton Work Phone: [facility]Cardi[facility] Services Work Phone: Start: 01-01-2023 Telephone encounter [...] Non-visit Dr. Millie Payton Work Phone: [facility] Work Phone: Start: 12-19-2022 End: 12-19-[address] Millie Payton Work Phone: [facility] Work Phone: Start: 12-19-2022 End: 12-19-[address] Millie Payton Work Phone: [facility] Services/Neurology Work Phone: Start: 11-23-2022 End: 11-23-[address] Millie Payton Work Phone: [facility] Work Phone: Start: 11-23-2022 End: 11-23-[address] Millie Payton Work Phone: [facility]Out[facility] Work Phone: Start: 10-05-2022 End: 10-05-[address] Millie Payton Work Phone: [facility] Work Phone: Start: 10-05-2022 End: 10-05-[address] Millie Payton Work Phone: [facility]-Laboratory, Specimen Work Phone: Start: 10-05-2022 End: 10-05-[address] Millie Payton Work Phone: [facility] Work Phone: Start: 02-28-2022 Telephone encounter Romero Pelletier MD Work Phone: [facility] Comment on above: Results (MRI) Start: 02-21-2022 End: 02-21-2022 Subsequent hospital visit by physician Mri Radio Replaced By [facility] (I-Stat/1.5t) Work Phone: Radiology Comment on above: Transient diplopia [ H53.2] Start: 11-07-2021 Telephone encounter Romero Pelletier MD Work Phone: [facility] Comment on above: Insurance Authorizat ion (/ Imaging Order ) Start: 10-07-2021 End: 10-07-[address] Millie Payton Work Phone: [facility] Work Phone: Start: 10-07-2021 End: 10-07-[address] Millie Payton Work Phone: [facility] Start: 09-30-2021 End: 09-30-[address] Millie Payton Work Phone: [facility] Start: 08-09-2021 End: 08-09-2021 Patient encounter procedure [...] possibly. H/O: surgery S/P gastric surgery Dr. eLx Brush MD H/O: surgery S/P gastric surgery Dr. Lex Brush MD H/O: surgery S/P gastric surgery Dr. Lex Brush MD Plan of Treatment Date Care Activity Detail Author Start: 09-26-2024 ambulatory Ambulatory Facility:[facility] Start: 09-23-2024 ambulatory Ambulatory Facility:[facility] Start: 09-08-2024 Protein measurement [facility] Start: 08-20-2024 [facility] Start: 08-13-2024 [facility] Start: 08-04-2024 Colsc flx w/rmvl of tumor polyp lesion snare tq COLONOSCOPY W/LESION REMOVAL [facility] Start: 08-04-2024 Patient discharge [facility] Start: 10-20-2022 Covid-19 Vaccine ( season) Covid-19 Vaccine ( season) [facility] Start: 10-20-2022 Influenza vaccination [facility] Start: 10-05-2022 Liquid based cervica l cytology screening [facility] Start: 08-05-2022 Adult depression scr eening assessment DEPRESSION SCREENING [facility] Start: 2022 RSV Vaccine (1 - 1-d ose 60+ series) RSV Vaccine (1 - 1-dose 60+ series) [facility] Start: 02-19-2022 DEPRESSION ASSESSMENT DEPRESSION ASS ESSMENT [facility] Start: 10-20-2021 Influenza vaccination C [facility] Start: 09-30-2021 Liquid based cervica l cytology screening [facility] Work Phone: Start: 09-23-2020 COVID-19 VACCINE (3 - Booster for Moderna series) COVID-19 VACCINE (3 - Booster for Moderna series) [facility] Start: 06-18-2020 COVID-19 VACCINE (3 - Booster for Moderna series) COVID-19 VACCINE (3 - Booster for Moderna series) [facility] Start: 04-23-2020 COVID-19 VACCINE (2 - Moderna series) COVID-19 VACCINE (2 - Moderna series) [facility] Start: 03-18-2020 HPV TESTING HPV TESTING [facility] Start: 05-11-2017 PAP TESTING PAP TESTING [facility] Start: 05-05-2017 Mammography [facility] Start: 2012 SHINGRIX VACCINE (1 of 2) SANTILLAN GRIX VACCINE (1 of 2) [facility] [facility] Start: 2007 COLOGUARD (FIT-DNA) COLOGUARD (FIT-D NA) [facility] Start: 2007 Colonoscopy COLONOSCOPY [facility] Start: 2007 COLORECTAL CANCER SCREENING COLORECTAL CANCER SCREENING [facility] Start: [address] COLONOGRAPHY [facility] Start: 2007 DIABETES SCREEN DIABETES SCREEN [facility] Start: 2007 Diabetes Screening Diabetes Screenin g [facility] Start: 2007 FECAL OCCULT BLOOD FECAL OCCULT BLOO D [facility] Start: 2007 Lipid 1996 panel - S zoey or Plasma Lipid Screening [facility] Start: 2007 LIPID SCREEN LIPID SCREEN [facility] Start: 2007 SIGMOIDOSCOPY SIGMOIDOSCOPY [facility] Start: 1981 Urine microalbumin profile [facility] Start: 1980 HEPATITIS C SCREENING HEPATITIS C SC [facility] CT Abdomen and Pelvi s W contrast IV [facility] End: 12-27-2023 Echocardiography ECHO Cardiology Routine Abnormal ECG Encounter for screening for cardiovascular disorders 1 Occurrences starting 12/26/2022 until 12/27/2023 [facility] Work Phone: Comment on above: 1 Occurrences starti ng 12/26/2022 until 12/27/2023 Glucose [Mass/volume ] in Serum or Plasma [facility] Work Phone: Lipid 1996 panel - S zoey or Plasma [facility] Work Phone: End: 09-08-2022 Mra head w/o contrst material MRA BRAIN WO IVCON Radiology Routine Transient diplopia Transient cerebral ischemia, unspecified type 1 Occurrences starting 08/09/2021 until 09/08/2022 [facility] Work Phone: Comment on above: 1 Occurrences starti ng 08/09/2021 until 09/08/2022 End: 09-08-2022 Mri brain brain stem w/o contrast material MRI BRAIN WO IVCON Radiology Routine Transient diplopia Transient cerebral ischemia, unspecified type 1 Occurrences starting 08/09/2021 until 09/08/2022 [facility] Work Phone: Comment on above: 1 Occurrences starti ng 08/09/2021 until 09/08/2022 OUTSIDE VENDOR CARDI AC OUTPATIENT EXTENDED RHYTHM RECORDING (WITHOUT TELEMETRY) OUTSIDE VENDOR CARDIAC OUTPATIENT EXTENDED RHYTHM RECORDING (WITHOUT TELEMETRY) Holter Routine Abnormal ECG Encounter for screening for cardiovascular disorders Ordered: 12/26/2022 [facility] Work Phone: Comment on above: Ordered: 12/26/2022 Path report.final Dx Spec [facility] Patient Education Crohns Disease Lifestyle Changes ED Hypertension, To Be Confirmed [facility] Work Phone: Patient referral [facility] Work Phone: Protein measurement [facility] Radionuclide study o f abdomen [facility] Thyroid stimulating hormone measurement [facility] Work Phone: [facility] Payers Date Payer Category Payer Self-pay [id number] 2022 Private Health Insurance [id number] 2021 Unknown [employer] E PPO [id number] 2021-Present [phone] [address] [place] [address] PPO [id number] 2021 Unknown [employer] Carlos Alberto PPO [id number] 2021-Present [phone] [address] [place] [address] PPO [id number] 2003 Unknown [id number] 1962 Unknown [id number] 2.16.840.1.135309.3.579.2 .651 1962 Unknown [id number] 2.16.840.1.969900.3.579.2 .651 1962 Unknown [id number] 2.16.840.1.788676.3.579.2 .651 1962 Unknown [id number] 2.16.840.1.653883.3.579.2 .651 1962 Unknown [id number] 2.16.840.1.707946.3.579.2 .594 Unknown [facility] PACKAGE PLAN [id number] Unknown [id number] 2.16.840.1.965736.3.579.2 .462 Unknown [id number] 2.16.840.1.422924.3.579.2 .462 Unknown [id number] 2.16.840.1.426782.3.579.2 .462 Unknown [id number] 2.16.840.1.275072.3.579.2 .462 Unknown [id number] 2.16.840.1.256246.3.579.2 .462 Unknown [id number] 2.16.840.1.930664.3.579.2 .462 Unknown [id number] 2.16.840.1.808327.3.579.2 .462 Unknown [id number] 2.16.840.1.143066.3.579.2 .462 Unknown [id number] 2.16.840.1.350411.3.579.2 .462 Unknown [id number] 2.16.840.1.726341.3.579.2 .462 Unknown [id number] 2.16.840.1.572681.3.579.2 .462 Unknown [id number] 2.16.840.1.311796.3.579.2 .462 Unknown [id number] 2.16.840.1.945888.3.579.2 .462 Unknown [id number] 2.16.840.1.305515.3.579.2 .462 Unknown [id number] 2.16.840.1.202758.3.579.2 .462 Unknown [id number] 2.16.840.1.605986.3.579.2 .462 Unknown [id number] 2.16.840.1.123048.3.579.2 .462 Unknown [id number] 2.16.840.1.373745.3.579.2 .462 Unknown [id number] 2.16.840.1.206445.3.579.2 .462 Unknown [id number] 2.16840.1.455665.3.579.2 .462 Unknown [id number] 2.16840.1.721907.3.579.2 .462 Social History Date Type Detail Facility Start: 12-26-2022 End: 09-08-2024 Tobacco smoking status NHIS Never smoked tobacco [facility] Start: 08-09-2021 End: 12-26-2022 Alcohol intake Current drinker of alcohol (finding) [facility] Start: 08-09-2021 End: 12-26-2022 Alcohol intake [facility] Start: 1960 Sex Assigned At Female [facility] Start: 07-30-2021 End: 08-09-2021 Exposure to SARS-CoV-2 (event) Not sure [facility] Start: 09-30-2021 End: 10-05-2022 Tobacco smoking status NHIS Unknown if ever smoked [facility] Start: 09-17-2019 Non-smoker [facility] Start: 08-09-2021 End: 12-26-2022 Tobacco use panel [facility] Adult Depression Screening Assessment 0 [facility] Start: 07-20-2021 Gender identity Identifies as female gender (finding) [facility] Start: 12-26-2022 Tobacco use and exposure Smokeless tobacco non-user [facility] NEGATED: Highlighted row Not [facility] Goals Date Patient Goal Desired Activity /State Mental Status Date Assessment Result Facility 08-04-2024 Cognitive function Voice/Name [facility] Work Phone: Clinical Notes 08-09-2021 to 08-20-2024 Note Date & Type Note Facility 08-20-2024 Discharge summary [facility] 08-20-2024 Radiology Diagnostic study note [facility] Imaging Services [address] [place], [place] [address] Abdomen/Pelvis W IV Cont ONLY MR#: [id number] Acct: [id number] Name: ALFONSO VERDUGO Rep #: [id number] : 1960 F 64 From: Mireya Lombardo MD PCP: Dr. Millie Payton MD Status: REG ER Study:Abdomen/Pelvis W IV Cont ONLY Date of E xam: 08/20/24 Exam# [id number] Ordering Dr: Milo Mcdonald MD PROCEDURE: ABDOMEN/PELVIS [...] secondary to infection. Advise correlation. Reading Location: [place] [address] CC: Dr. Millie Payton MD; Dr. Diego Mcdonald MD ~ Hazardous Waste Remover: Signed [facility] 08-20-2024 Discharge summary Note Date/Time August 20, 2024 11:28pm [facility] Medical Records Department [address] [place] [address] Emergency Department Summary 08/20/24 MR#: [id number] Acct: [id number] Name: ALFONSO VERDUGO Rep #:[id number] : 1960 64 From: Diego Mcdonald MD [...] cap PO Q24H 08/20 Unknown History mg capsule,ext.[id number] multphas (Qsymia) Allergy/AdvReac Type Severity Reaction Status [...] home: Yes additional social history: Remarried to [employer]! 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 EXAM Physical Exam Const Vital Signs: 08/20/24 21:14 Temperature 97.5 F L Temperature Source Temporal Pulse Rate 80 Respiratory Rate 18 Blood Pressure 154/79 H Blood Pressure Mean 104 Pulse Ox 97 Oxygen Delivery Method Room Air [facility] Lab Data Attestation: I reviewed the patient's [...] % (Auto) 66.4 Lymph % (Auto) 24.2 [place] % (Auto) 7.2 Eos % (Auto) 1.4 [...] secondary to infection. Advise correlation. Reading Location: [facility]-2 CT of the abdomen pelvis with IV [...] treat with ciprofloxacin and metronidazole. Will have forging machine hand schedule appointment to see Dr. Bess after [...] not mean you have Crohn'sdisease. Print Language: Moldovan Disposition Disposition: Home, Self Care What to do if you have Problems For any increased pain, shortness of breath, bleeding, nausea or vomiting, chestpain, or any unexpected problems, contact your Primary Care Provider. Call [facility] ([phone]) or report to the closest Emergency Room. Call 911 if necessary. 08/20/242327 <Electronically signed by Diego Mcdonald MD> Cosigner Signature (if applicable): CC: Dr. Millie Payton MD ~ Signed [facility] Work Phone: 1(676) 106-280607-01-2025 Hospital Discharge instructionsAdditional Instructions 1. No alcoholic [...] This does not mean you have Crohn's disease.[facility] Work Phone: 1(774) 594-305006-25-2025 Discharge summary [facility] Medical Records Department [address] [place] [address] Emergency Department Summary 08/13/24 MR#: [id number] Acct: [id number] Name: ALFONSO VERDUGO Rep #:[id number] : 1960 64 From: Mich Wheatley DO [...] with 1 polyp removed and called the air transportation provider office and they state that she should [...] pain does not get exacerbated with eating. [facility] Medical History Wears glasses Wears contact [...] following commands knew that she was at [facility] the year is 2024 Skin: Warm, dry, [...] % (Auto) 59.5 Lymph % (Auto) 31.3 [place] % (Auto) 6.0 Eos % (Auto) 2.2 [...] Sl. Cloudy Urine pH 6.0 Ur Specific [place] 1.010 Urine Protein Negative Urine Glucose (UA) [...] acute cholecystitis. Nonspecific echogenic pancreas. Reading Location: [facility] Discharge Plan Triage Chief Complaint: Abd Pain [...] with worsening symptoms or concerns. Print Language: Moldovan Disposition Disposition: Home, Self Care What to do if you have Problems For any increased pain, shortness of breath, bleeding, nausea or vomiting, chestpain, or any unexpected problems, contact your Primary Care Provider. Call [facility] ([phone]) or report tothe closest Emergency Room. Call 911 if necessary. 08/13/24 1608 Cosigner Signature (if applicable): CC: Dr. Millie Payton MD ~ Signed [facility]06-25-2025 Radiology Diagnostic study note [facility] Imaging Services [address] [place] [address] Abdomen Limited MR#: [id number] Acct: [id number] Name: ALFONSO VERDUGO Rep #: [id number] : 1960 F 64 From: Zofia Guadalupe MD PCP: Dr. Millie Payton MD Status: REG ER Study:Abdomen Limited Date of Exam: 07/21 07/13 Exam# [id number] Ordering Dr: Karen Wheatley DO PROCEDURE: ABDOMEN [...] acute cholecystitis. Nonspecific echogenic pancreas. Reading Location: [facility] CC: Dr. Millie Payton MD; Dr. Mich Wheatley DO ~ Hazardous Waste Remover: Signed [facility]06-25-2025 Discharge summary Author Mich Wheatley [facility] Note Date/Time August 13, 2024 4:08 pm [facility] Medical Records Department [address] [place] [address] Emergency Department Summary 08/13/24 MR#: [id number] Acct: [id number] Name: ALFONSO VERDUGO Rep #:[id number] : 1960 64 From: Mich Wheatley DO [...] with 1 polyp removed and called the air transportation provider office and they state that she should [...] pain does not get exacerbated with eating. [facility] Medical History Wears glasses Wears contact [...] social history: Remarried to Rich! 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 [employer] ROS ED ROS Narrative Constitutional: Denies [...] following commands knew that she was at [facility] the year is 2024 Skin: Warm, dry, [...] % (Auto) 59.5 Lymph % (Auto) 31.3 [place] % (Auto) 6.0 Eos % (Auto) 2.2 [...] Sl. Cloudy Urine pH 6.0 Ur Specific [place] 1.010 Urine Protein Negative Urine Glucose (UA) [...] acute cholecystitis. Nonspecific echogenic pancreas. Reading Location: [facility] Discharge Plan Triage Chief Complaint: Abd Pain [...] with worsening symptoms or concerns. Print Language: Moldovan Disposition Disposition: Home, Self Care What to do if you have Problems For any increased pain, shortness of breath, bleeding, nausea or vomiting, chestpain, or any unexpected problems, contact your Primary Care Provider. Call [facility] ([phone]) or report to the closest Emergency Room. Call 911 if necessary. 08/13/24 1608 <Electronically signed by Mich Wheatley DO> Lisseth Signature (if applicable): CC: Dr. Millie Payton MD ~ Signed [facility] Work Phone: 1(782) 374-119306-16-2025 Consult note [facility] Medical Records Department [address] [place] [address] Anesthesia Postop Eval I 08/04/2410 MR#: [id number] Acct: [id number] Name: ALFONSO VERDUGO PASCALE Rep #:[id number] : 1960 64 From: Juancarlos Wheatley PCP: Dr. Millie Payton MD Status:REG [facility] Y Race: C Location: [place] [address] Anesthesia: Postop Eval I Current Vital Signs [...] Juancarlos Montanez Signature: Date CC: ~ Signed [facility]06-16-2025 Procedure note [facility] Medical Records Department [address] [facility] [place] [address] Operative Report - CC Letter MR#: [id number] Acct: [id number] Name: ALFONSO VERDUGO PASCALE Rep #:[id number] : 1960 64 From: Maryellen Lopez MD PCP: Dr. Millie Payton MD Status:REG [facility] 08/04/2024 Millie Payton Re [...] MD ~ Date Dictated: 08/04/24726 Date Transcribed: Hazardous Waste Remover: TR Signed [facility]06-16-2025 Procedure note [facility] Medical Records Department [address] [place] [address] Colonoscopy Report MR#: [id number] Acct: [id number] Name: ALFONSO VERDUGO PASCALE Rep #:[id number] : 1960 64 From: Maryellen Lopez MD PCP: Dr. Millie Payton MD Status:REG [facility] Patient Name: Alfonso Verdugo [...] pathology results. Procedure Code(s): --- Professional --- 41898, PT, Colonoscopy, flexible; with removal of tumor(s), polyp(s), or other lesion(s) by snare technique Diagnosis Code(s): --- Professional --- Z86.010, Personal history of colonic polyps D12.4, Benign neoplasm of descending colon Z80.0, Family history of malignant neoplasm of digestive organs CPT copyright 2021 [employer]. All rights reserved. The codes documented in this report are preliminary and upon mill operator helper review may be revised to meet current compliance requirements. MD Maryellen Ramires MD 08/04/2024 8:03:27 AM This report has been signed electronically. Number of Addenda: 0 Note Initiated On: 08/04/2024 7:27 AM 08/04/24802 Date _ Maryellen Lopez MD Cosigner Signature: Date (if indicated) CC: Dr. Millie Payton MD; Dr. Maryellen Lopez MD ~ Date Dictated: 08/04/24726 Date Transcribed: Hazardous Waste Remover: TR Signed [facility]06-16-2025 History and physical note [facility] Medical Records Department [address] [place] [address] History & Physical Exam 08/04/24719 MR#: [id number] Acct: [id number] Name: ALFONSO VERDUGO PASCALE Rep #:[id number] : 1960 64 From: Maryellen Lopez MD PCP: Dr. Millie Payton MD Status:[facility] Location: [address] - General General Date of Service: 08/04/24 HPI Narrative ALFONSO VERDUGO, is a 64 F who presents for screening colonoscopy due history of colon polyps?tubular adenoma. Patient last colonoscopy was 5 years ago with , about 4 years ago patient's brotherwas diagnosed with colon cancer at age 55.. Patient has bowel movements daily denies any blood. Patient denies any chronic abdominal pain/nausea/vomiting/reflux. [facility] Medical History Wears glasses Wears contact lenses [...] home: Yes additional social history: Remarried to [employer]! 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 Past Medical/Surgical History Planned Operation [...] Rash Discharge Is Pt Admitted From a Alf, or a Longterm: No After D/C, Where Do you Plan to Go: Return Home From the [facility] History Number of Risk Factors: 4 [...] Payton MD; Dr. Maryellen Lopez MD~ Signed [facility]06-16-2025 [facility] Medical Records Department [address] [place] [address] History Physical Exam 08/04/24 0720 MR#: [id number] Acct: [id number] Name: ALFONSO VERDUGO Rep #: [id number] : 1960 64 From: Maryellen Lopez MD PCP: Dr. Millie Payton MD Status:REG [facility] Location: [facility]12-1 HPI - General General Date of [...] blood. Patient denies any chronic abdominal pain/nausea/vomiting/reflux. [facility] Medical History Wears glasses Wears contact lenses [...] of an Orthopedic Prob (more content not included)...[facility]06-16-2025 Consult note [facility] Medical Records Department [address] [place] [address] Pre-Anesthesia Evaluation 08/04/24 0710 MR#: [id number] Acct: [id number] Name: ALFONSO VERDUGO Rep #:[id number] : 1960 64 From: Do martins CRNA PCP: Dr. 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 Hx Hospitalization No 07/31/24 10:35 Any Problems [...] take am of surgery PONV PONV - apprentice electrician: PONV - apprentice electrician Female Yes 07/31/24 10:35 HX of Motion [...] 08/04/24 06:48 Respiratory Assessment Respiratory Assessment - apprentice electrician: Respiratory Tract Infection Hx - apprentice electrician Hx Respiratory Tract Infection No 07/31/24 10:35 STOP Sleep Apnea STOP Sleep Apnea - apprentice electrician: STOP Sleep Apnea - apprentice electrician Hx Hypertension No 07/31/24 10:35 Hx Sleep [...] Tobacco Use History Tobacco Use History - apprentice electrician: Tobacco Use History - apprentice electrician Tobacco Use Smoking Status Never smoker 07/31/24 10:35 Hx Tobacco Use No 07/31/24 10:35 Years Smoking Packs Smoked per Day Smoking Cessation Date was within the last 15 years Hx Smoking Cessation Date Hx Smoking Cessation Counseling Hematologic Medial History Hematologic Hx - apprentice 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: 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 Hx of Blood Transfusion No 07/31/24 10:35 [...] confused, unrespo /Reproduction History /Reproductive History - apprentice electrician: /Reproductive Hx- apprentice electrician Hx Now No 07/31/24 10:35 Gestational Age (in weeks): EDC: Hx Hx Para Hx Section SAB No 07/31/24 10:35 Active Medications Active Medications: Current Medications Generic Name Dose Route Start Last Admin Trade Name Marek PRN Reason Stop Dose Admin Lactated Ringer's 1,000 mls @ 30 mls/hr 08/04/24 06:45 08/04/24 06:52 IV 30 mls/hr .[id number] SUKHDEV Administration PFSH Medical History Wears glasses [...] complaints, except as documented. 08/04/24 0716 nski VP BUSINESS DEVELOPMENT> Date _ Do Gloria VP BUSINESS DEVELOPMENT Cosigner Signature: Date CC: ~ Signed [facility]04-11-2025 Evaluation note* Diagnosis Onset Date Resolution Status [...] abdominal pain acute September 01, 2024 11:04am [facility] Work Phone: 1(717) 191-720304-11-2025 Evaluation note* Diagnosis Onset Date Resolution Status [...] gastric surgery acute September 08, 2024 3:47pm [facility] Work Phone: 1(268) 765-516003-12-2025 Evaluation note* Diagnosis Onset Date Resolution Status Admit Date Depression with anxiety acute [facility] 2024 8:32am Obesity (BMI 30.0-34.9) acute [facility] 2024 8:32am Other obesity acute April 30, 2024 8:32am S/P gastric surgery acute April 30, 2024 8:32am Depression with anxiety acute [facility] 2024 11:27am Goiter acute May 30 11:27am Obesity (BMI 30.0-34.9) acute [facility] 2024 11:27am Other obesity acute May 30, 2024 11:27am S/P gastric surgery acute May 30, 2024 11:27am Family history of colon cancer acute August 04, 2024 6:25am Hx of colonic polyps acute August 04, 2024 6:25am [facility] Work Phone: 1(163) 738-486003-12-2025 Evaluation note* Diagnosis Onset Date Resolution Status Admit Date Depression with anxiety acute [facility] 2024 8:32am Obesity (BMI 30.0-34.9) acute [facility] 2024 8:32am Other obesity acute April 30, 2024 8:32am S/P gastric surgery acute April 30, 2024 8:32am Depression with anxiety acute [facility] 2024 11:27am Goiter acute May 30 11:27am Obesity (BMI 30.0-34.9) acute [facility] 2024 11:27am Other obesity acute May 30, 2024 11:27am S/P gastric surgery acute May 30, 2024 11:27am Family history of colon cancer acute August 04, 2024 6:25am Hx of colonic polyps acute August 04, 2024 6:25am Cholelithiasis acute August 14, 2024 8:59am [facility] Work Phone: 1(622) 781-320603-12-2025 Evaluation note* Diagnosis Onset Date Resolution Status [...] abdominal pain acute August 14, 2024 8:59am [facility] Work Phone: 1(882) 577-414702-02-2025 Consult note Author Juancarlos Wheatley [facility] Note Date/Time August 04, 2024 8:12 am [facility] Medical Records Department [address] [place] [address] Anesthesia Postop Eval I 08/04/24 0810 MR#: [id number] Acct: [id number] Name: ALFONSO VERDUGO PASCALE Rep #:[id number] : 1960 64 From: Juancarlos Wheatley PCP: Dr. Millie Payton MD Status:REG SDC Y Race: C Location: [place] [address] Anesthesia: Postop Eval I Current Vital Signs [...] Wheatley Noeligner Signature: Date CC: ~ Signed [facility] Work Phone: 1(785) 941-759311-13-2023 Miscellaneous Notes* Telephone Encounter - Bo Shipley - 01/01/2023 9:38 AM EST ECHO order faxed to [facility] at [phone]. Bo Shipley [facility] Miscellaneous Notes* Telephone Encounter - Bo Shipley - 12/26/2022 12:14 PM EST Office notes faxed to Dr. Payton ([phone]) and Dr. Brush's ([phone])offices. Bo Shipley documented in [facility]23 History of Present illness Narrative* Susan Marin - 12/26/2022 10:43 AM EST EVENT MONITOR DISPOSABLE PATCH INSTRUCTIONS Patient Name: Alfonso Verdugo [facility] Number: [id number] Skin prepped and cleansed with alcohol Patch secured to prepped area Monitor Activated Serial #: [id number] Patient Instructed: Prescribed order timeframe Bathing guidelines Usage of event button and diary documentation Return of monitor at the end of prescribed order Call with problems [phone] or [phone]. [phone] Patient expresses a good understanding of instructions Susan Marin documented in [facility]-2023 Instructions* Patient Instructions* Vinh Kapadia MD [...] 3rd hand smoke.N/A #5 Weight loss : [place] BMI (Body Mass Index = weight (kg) [...] Face time was minutes. documented in this [facility]Mer[facility]-2023 History of Present illness Narrative* Vinh Kapadia MD - 12/26/2022 8:45 AM EST Images from the original note were not included. [facility] [place] [facility] Department of Cardiovascular Medicine SECTION OF CLINICAL CARDIOLOGY OUTPATIENT VISIT DATE December 26, 2022 OUTPATIENT VISIT TYPE NEW PRIMARY CARE PHYSICIAN: Millie Payton (Evelio) [address] [place] [address] REFERRING PHYSICIAN: Millie Campa) [address] [facility] [address] CHIEF COMPLAINT: Abnormal ECG - Cardiac clearance HISTORY OF PRESENT ILLNESS: NURSING INTAKE: Ms. Verdugo is a 62 year old female from [place], [place] here today for cardiovascular evaluation related to abnormal EKG reading. She mentions that before she starts a medication from her [employer]IAN [employer] for weight loss, her OB had her get an EKG done which came back abnormal. Her OB wanted her to see cardiology to ensure everything is okay from a cardiac standpoint prior to starting this medication. 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 Referred by [employer] for cardiac clearance prior to initiating phentamine [...] 3rd hand smoke.N/A #5 Weight loss : [place] BMI (Body Mass Index = weight (kg) [...] - continue to follow up with PCP, VENETIAN BLIND MAKER and RTC as needed Cc: Millie Brush MD CONTACT INFORMATION:Vinh Kapadia M.D, MPH, FACC [place] Department of Cardiovascular Medicine Heart and Vascular [place] [facility] Desk [place] [address] Office Office Appointments: [phone] documented in this encounterMercy Health Willard Hospital08-17-2023 NotePap Smear Specimen AdequacyAugust 2022 11:59pmComment.Satisfactory for evaluation. Endocervical and/or squamous metaplasticcells (endocervical component)are present.[facility] INTERFACED A#[id number] HospitalComment on above: Satisfactory for evaluation. Endocervical and/or [...] sure are scan is good. Please call [phone] to discuss results and any follow up. * Telephone Encounter - Nancy Cline [facility] - 02/28/2022 9:33 AM EST CV PHONE Name of caller : Alfonso Relationship to patient : Self If not self Will need patient permission to release results or disclose health information with called documented in fyi. Patient identified by Name and Date of . ( Alfonso Verdugo, 1960). Yes Number to return call [phone] Reason for Call: Results: Results Calling office requesting result of MRI test, completed on 02-21-22. Please call patient back at above. Thank you calling [facility] [place]. You will receive a return call within 48hours ( or 2 business days if close to the weekend). If you feel that this is an urgent issue and needs immediate attention, it is recommended that you contact your primary care provider office or proceed to your nearest Urgent Care Center of Emergency Room ED for evaluation/treatment. documented in this encounterMercy [facility] Hospital01-03-2023 History of Present illness Narrative* Leticia [...] 21, 2022 9:38 AM documented in this encounterMercy Health Willard Hospital09-20-2022 Miscellaneous Notes* Telephone Encounter - Leidy [...] Verdugo, 1960). Yes Number to return call [phone] Reason for Call : Prior Authorization : Prior Authorization Patient calling to seek Insurance Pre-Authorization number from staff providers office. Patient hasphysical hard copy of order and is attempting to schedule MRI/MRA Brain at [facility] in [facility] but states both the hospital and the insurance company [employer] request a pre-authorization number. Advised patient this would not be the usual process to seek through the doctor's office and provided patient with additional phone number and suggestion for possible solutions but patient would also prefer a call back as well at [phone]. documented in this encounterMercy Health Willard Hospital08-12-2022 NotePap Smear Specimen AdequacyAugust 2021 4:50pmComment.Satisfactory for evaluation. Endocervical and/or squamous metaplasticcells (endocervical component)are present.[facility] A#[id number] Memorial Hospital Work Phone: Comment on above:Satisfactory for [...] 09, 2021 11:42 AM documented in this encounterMercy Health Willard Hospital06-21-2022 History of Present illness Narrative* Romero Pelletier MD - 08/09/2021 10:00 AM EDT Images from the original note were not included. [facility]BR[facility]ULAR CENTER Initial Visit Consultation is requested by: SELF PCP: Song Figueroa (Evelio) [address] [place] [address] [place] [address] CEREBROVASCULAR HISTORY Alfonso Verdugo is a 61 [...] Laid down, and saw an ENT in [place], and was given exercises. After 4 days, [...] have had a 'mini stroke' 03/10/2019 at [facility], after falling and hitting head [...] results found for: HBA1C IMAGING CT head [facility] CT head 03/19/2019 Patient Entered Questionnaires [...] Noncerebrovascular Concern: Yes Details: Traumatic SDH Modified [place] Score: Score: 0 NIH Stroke Scale: LOC: [...] which included preparing to see the patient, [id number] patient care, completing clinical documentation, obtaining and/or reviewing separately obtained history, performing a medically appropriate examination, counseling and educating the patient/family/caregiver and ordering medications, tests, or procedures SIGNATURE Romero Pelletier M.D. Staff, Cerebrovascular Center August 09, 2021 2:06 PM CC SELF Song Figueroa (Dilan) [address] [place] [address] documented in this encounterOhioHealth Shelby Hospital note Author Do Castro [facility] Note Date/Time August 04, 2024 7:16 am [facility] Medical Records Department [address] [place] [address] Pre-Anesthesia Evaluation 08/04/24 0710 MR#: [id number] Acct: [id number] Name: ALFONSO VERDUGO Rep #:[id number] : 1960 64 From: Do martins CRNA PCP: Dr. Millie Payton MD Status:REG SD Y Race: C Location: [place] [address] ASA Classification* ASA Classification ASA Classification: 2 [...] Procedure(s): COLONOSCOPY-OA Anesthesia History Anesthesia History - apprentice electrician: Anesthesia History - apprentice electrician Hx Hospitalization No 07/31/24 10:35 Any Problems [...] take am of surgery PONV PONV - apprentice electrician: PONV - apprentice electrician Female Yes 07/31/24 10:35 HX of Motion [...] 08/04/24 06:48 Respiratory Assessment Respiratory Assessment - apprentice electrician: Respiratory Tract Infection Hx - apprentice electrician Hx Respiratory Tract Infection No 07/31/24 10:35 STOP Sleep Apnea STOP Sleep Apnea - apprentice electrician: STOP Sleep Apnea - apprentice electrician Hx Hypertension No 07/31/24 10:35 Hx Sleep [...] Tobacco Use History Tobacco Use History - apprentice electrician: Tobacco Use History - apprentice electrician Tobacco Use Smoking Status Never smoker 07/31/24 10:35 Hx Tobacco Use No 07/31/24 10:35 Years Smoking Packs Smoked per Day Smoking Cessation Date was within the last 15 years Hx Smoking Cessation Date Hx Smoking Cessation Counseling Hematologic Medial History Hematologic Hx - apprentice electrician: 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 Hx of Blood Transfusion No 07/31/24 10:35 [...] confused, unrespo /Reproduction History /Reproductive History - apprentice electrician: /Reproductive Hx- apprentice electrician Hx Now No 07/31/24 10:35 Gestational Age (in weeks): EDC: Hx Hx Para Hx Section SAB No 07/31/24 10:35 Active Medications Active Medications: Current Medications Generic Name Dose Route Start Last Admin Trade Name Freq PRN Reason Stop Dose Admin Lactated Ringer's 1,000 mls @ 30 mls/hr 08/04/24 06:45 08/04/24 06:52 IV 30 mls/hr .[id number] Administration PFS Medical History Wears glasses [...] 08/04/24 0716 <Electronically signed by Do jimenez VP BUSINESS DEVELOPMENT> Date _ Do Castro VP BUSINESS DEVELOPMENT Cosigner Signature: Date CC: ~ Signed [facility] Work Phone: Evaluation note* Diagnosis Transient diplopia- Primary Diplopia Transient cerebral ischemia, unspecified type documented in this encounter [facility] HospitalCamping and Coaluation note* Diagnosis Onset Date Resolution Status Depression with anxiety acut e Fecal incontinence acute HPV test positive acute Obesity acute Encounter for routine gynecological examination noneactive [facility] Work Phone: Camping and Coaluation note* Diagnosis Onset Date Resolution Status Abnormal Pap smear of cervix acute HPV test positive acute Encounter for routine gynecological examination noneactive [facility] Work Phone: Evaluation note* Diagnosis Onset Date Resolution Status Abnormal Pap smear of cervix acute HPV test positive acute Encounter for routine gynecological examination noneactive Abnormal Pap smear of cervix acute HPV test positive acute [facility] Work Phone: Evaluation note* Diagnosis Transient diplopia Diplopia Transient cerebral ischemia, unspecified type documented in this encounter [place] Accertifyation note* Diagnosis Abnormal ECG- Primary Nonspecific abnormal electrocardiogram (ECG) (EKG) Encounter for screening for cardiovascular disorders Screening for other and unspecified cardiovascular conditions documented in this encounter [facility] HospitalTop Prospectation note* Diagnosis Abnormal ECG- Primary Nonspecific abnormal electrocardiogram (ECG) (EKG) Encounter for screening for cardiovascular disorders Screening for other and unspecified cardiovascular conditions Class 2 obesity due to excess calories without serious comorbidity with body mass index (BMI) of 35.0 to 35.9 in adult Mixed hyperlipidemia documented in this encounter [facility] HospitalEvaluation note* Diagnosis Onset Date Resolution Status Abnormal Pap smear of cervix acute HPV test positive acute [facility] Work Phone: History and physical note Author Maryellen Lopez [facility] Note Date/Time August 04, 2024 7:26 am [facility] Medical Records Department [address] [place] [address] History & Physical Exam 08/04/24 0720 MR#: [id number] Acct: [id number] Name: ALFONSO VERDUGO Rep #:[id number] : 1960 64 From: Maryellen Lopez MD PCP: Dr. Millie Payton MD Status:[facility] Location: [place] [address] HPI - General General Date of Service: [...] blood. Patient denies any chronic abdominal pain/nausea/vomiting/reflux. [facility] Medical History Wears glasses Wears contact lenses [...] Rash Discharge Is Pt Admitted From a Alf, or a Longterm: No After D/C, Where Do you Plan to Go: Return Home From the [facility] History Number of Risk Factors: 4 [...] Payton MD; Dr. Maryellen Lopez MD~ Signed [facility] Work Phone: Hospital Discharge instructions Additional Instructions Call Dr. Roberts office when you are discharged here for your appointment tomorrow. Return with worsening symptoms or concerns.[facility] Work Phone: Reason for referral (narrative)No reason for referral information availableWLima Memorial Hospital Work Phone: Summary Purpose Family History No Family History Records Found Relationship Condition Age at Onset Recorded Date/T bren grandmother Malignant neoplasm of breast Unknown grandfather Diabetes mellitus Unknown Advance Directives No Advanced Directives Records Found Advance Directive Response Recorded Date/ Time Advance Directives No January 5:11pm Living Will No September 17, 2019 12:46pm Power of Ordnance Truck Installation Mechanic No September 16 0 12:46pm Advance Directive Response Recorded Date/ Time Advance Directives No January 4:11pm Living Will No September 17, 2019 11:46am Power of Ordnance Truck Installation Mechanic No September 16 0 11:46am Advance Directive Response Recorded Date/ Time Advance Directives No March 2:30pm Do you have a Healthcare Power of Ordnance Truck Installation Mechanic? No July 31, 2024 10:35am Advance Directive Response Recorded Date/ Time Do you have a Healthcare Power of Ordnance Truck Installation Mechanic? No July 31, 2024 10:35am Do you have a Healthcare Power of Ordnance Truck Installation Mechanic? No August 13, 2024 12:45pm Advance Directives No March 2:30pm Advance Directive Response Recorded Date/ Time Do you have a Healthcare Power of Ordnance Truck Installation Mechanic? No July 31, 2024 10:35am Do you have a Healthcare Power of Ordnance Truck Installation Mechanic? No August 13, 2024 12:45pm Do you have a Healthcare Power of Ordnance Truck Installation Mechanic? No August 20, 2024 9:59pm Advance Directives No March 2:30pm Reason for Referral Specialty Diagnoses / Procedures Referred By Contac t Referred To Contact MR IMAGING Diagnoses Transient diplopia Transient cerebral ischemia, unspecified type Procedures MRA BRAIN WO IVCON MRA, HEAD W/O CONTRAST Romero Pelletier MD [address] [place] [address] Mr Imaging Referral ID Status Reason Start Date Expiration Date Visits Requested Visits Authorized [id number] Pending Review Auto-Generat ed Referral 08/09/2021 09/08/2022 1 1 Specialty Diagnoses / Procedures Referred By Contac t Referred To Contact MR IMAGING Diagnoses Transient diplopia Transient cerebral ischemia, unspecified type Procedures MRI BRAIN WO IVCON MRI BRAIN BRAIN STEM W/O CONTRAST MATERIAL Romero Pelletier MD [address] [place] [address] Mr Imaging Referral ID Status Reason Start Date Expiration Date Visits Requested Visits Authorized [id number] Pending Review Auto-Generat ed Referral 08/09/2021 09/08/2022 1 1 Specialty Diagnoses / Procedures Referred By Contac t Referred To Contact MR IMAGING Diagnoses Transient diplopia Transient cerebral ischemia, unspecified type Procedures MRI BRAIN WO IVCON MRI BRAIN BRAIN STEM W/O CONTRAST MATERIAL Romero Pelletier MD [address] [facility] [place] [address] [place] [address] Referral ID Status Reason Start Date Expiration Date V isits Requested Visits Authorized [id number] Closed Auto-Generate d Referral 11/07/2021 05/06/2022 1 1 Specialty Diagnoses / Procedures Referred By Contac t Referred To Contact Procedures CARDIOVASCULAR MEDICINE OP FOLLOW UP APPT ORDER Vinh Kapadia MD [address] [place] [address] Referral ID Status Reason Start Date Expiration Date Visits Requested Visits Authorized [id number] Ref Not Required PCP Requested Referral 12/26/2022 12/26/2023 1 1 Specialty Diagnoses / Procedures Referred By Jeremiah jones Referred To Contact [facility] [place] Diagnoses Abnormal ECG Encounter for screening for cardiovascular disorders Procedures ECHO ECHO TTHRC R-T 2D W/WOM-MODE COMPL SPEC&COLR D Vinh Kapadia MD [address] [place] [address] [address] Referral ID Status Reason Start Date Expiration Date Visits Requested Visits Authorized [id number] Pending Review Auto-Generat ed Referral 12/26/2022 12/26/2023 1 1 Chief Complaint and Reason for Visit Chief Complaint SCREENING Annual (VENETIAN BLIND MAKER) Reason for Visit Depression with anxi ety Fecal incontinence HPV test positive Obesity Encounter for routine gynecological examination Chief Complaint SCREENING Annual (VENETIAN BLIND MAKER) ABN MAMM Reason for Visit Depression with anxi ety Fecal incontinence HPV test positive Obesity Encounter for routine gynecological examination Chief Complaint Annual (VENETIAN BLIND MAKER) Reason for Visit Abnormal Pap smear o f cervix HPV test positive Encounter for routine gynecological examination Chief Complaint Annual (VENETIAN BLIND MAKER) SCREENING Colposcopy Body mass index [BMI] 37.0-37.9, [...] section and content) DATE CREATED AUTHOR 10/14/2020 [facility] DATE CREATED AUTHOR AUTHOR'S ORGANIZ ATION 12/30/2023 [facility] DATE CREATED AUTHOR AUTHOR'S ORGANIZ ATION 01/23/[address] [facility] DATE CREATED AUTHOR AUTHOR'S ORGANIZ ATION 07/18/2024 [facility] DATE CREATED AUTHOR AUTHOR'S ORGANIZ ATION 09/16/2024 [facility] Source Comments (unrecognize d section and content) In the event this informatio n is protected by the Federal Confidentiality of Alcohol and Drug Abuse Patient Records regulations: The Federal rules restrict any use of the information to criminally investigate or prosecute any alcohol or drug abuse patient.[facility] HospitalIn the event this information is protected by the Federal Confidentiality of Alcohol and Drug Abuse Patient Records regulations: The Federal rules restrict any use of the information to criminally investigate or prosecute any alcohol or drug abuse patient.[facility] HospitalIn the event this information is protected by the Federal Confidentiality of Alcohol and Drug Abuse Patient Records regulations: The Federal rules restrict any use of the information to criminally investigate or prosecute any alcohol or drug abuse patient.[facility] HospitalIn the event this information is protected by the Federal Confidentiality of Alcohol and Drug Abuse Patient Records regulations: The Federal rules restrict any use of the information to criminally investigate or prosecute any alcohol or drug abuse patient.[facility] HospitalIn the event this information is protected by the Federal Confidentiality of Alcohol and Drug Abuse Patient Records regulations: The Federal rules restrict any use of the information to criminally investigate or prosecute any alcohol or drug abuse patient.[facility] HospitalIn the event this information is protected by the Federal Confidentiality of Alcohol and Drug Abuse Patient Records regulations: The Federal rules restrict any use of the information to criminally investigate or prosecute any alcohol or drug abuse patient.[facility] HospitalIn the event this information is protected by the Federal Confidentiality of Alcohol and Drug Abuse Patient Records regulations: The Federal rules restrict any use of the information to criminally investigate or prosecute any alcohol or drug abuse patient.[facility] HospitalIn the event this information is protected by the Federal Confidentiality of Alcohol and Drug Abuse Patient Records regulations: The Federal rules restrict any use of the information to criminally investigate or prosecute any alcohol or drug abuse patient.[facility] Reason for Visit (unrecogniz ed section and content) Reason Comments New Patient Evaluation Specialty Diagnoses / Procedures Referred By Contact Referred To Contact Neurology / CEREBROVASCULAR Diagnoses Brain bleed (HCC) 9fell hit brain bleed now eposides where left eye wanders Procedures OFFICE/OUTPATIENT NEW MODERATE MDM 45-59 MINUTES NEW NI MEDICAL Self Romero Pelletier MD [address] [place] [address] Referral ID Status Reason Start Date Expiration Date V isits Requested Visits Authorized [id number] Authorized 07/22/2021 07/22/2022 4 4 Reason Comments Insurance Authorization / Imaging Order Reason Comments Results MRI Specialty Diagnoses / Procedures Referred By Contac t Referred To Contact MR IMAGING Diagnoses Transient diplopia Transient cerebral ischemia, unspecified type Procedures MRI BRAIN WO IVCON MRI BRAIN BRAIN STEM W/O CONTRAST MATERIAL Romero Pelletier MD [address] [place] [id number] Mr Imaging [id number] Referral ID Status Reason Start Date Expiration Date V isits Requested Visits Authorized [id number] Closed Auto-Generate d Referral 11/07/2021 05/06/2022 1 1 Reason Comments Event ZIO PATCH Reason Comments Release Of Medical Records Reason Comments Orders Care Teams (unrecognized sec tion and content) Agency Legal Counsel Relationship Specialty Start Date End Date Millie Payton MD [address] [place] [address] PCP - General Internal Medicine 08/09/21 Agency Legal Counsel Relationship Specialty Start Date End Date Millie Payton MD [address] [place] [phone] PCP - General Internal Medicine 08/09/21 Team [...] MD Attending Provider, Referr ing Provider Active Agency Legal Counsel Relationship Specialty Start Date End Date Millie Payton MD [address] [place] [address] PCP - General Internal Medicine 08/09/21 Agency Legal Counsel Relationship Specialty Start Date End Date Millie Payton MD [address] [facility] [address] [place] [phone] PCP - General Internal Medicine 08/09/21 Vinh Kapadia MD [address] [place] [address] Primary Staff Physician Cardiology 12/26/22 Agency Legal Counsel Relationship Specialty Start Date End Date Millie Payton MD [address] [facility] [address] [place] [address] PCP - General Internal Medicine 08/09/21 Vinh Kapadia MD [address] [place] [address] Primary Staff Physician Cardiology 12/26/22 Agency Legal Counsel Relationship Specialty Start Date End Date Millie Payton MD [address] [facility] [address] [place] [phone] PCP - General Internal Medicine 08/09/21 Vinh Kapadia MD [address] [place] [address] Primary Staff Physician Cardiology 12/26/22 Team Status: [...] BE BASED ON THE PRIMARY CLINICAL RECORDS. [facility]. provides no warranty or guarantee of the accuracy or completeness of information in this document.
== END | disposition home or self-care (01) ==
DX: R10.9 Unspecified abdominal pain (principal); K82.8 Other specified diseases of gallbladder
CPT/HCPCS: 78227; A9537; J2805

== ENCOUNTER → 2024-10-17 | Outpatient (CLI) | payer OTHER, SELFPAY ==
[2024-10-23 16:09] LABS: HPV APTIMA, High Risk Positive (Negative)
== END | disposition home or self-care (01) ==
LOC: LABSPEC 11:21
PROVIDERS: Visit Provider Obstetrics & Gynecology
DX: Z12.4 Encounter for screening for malignant neoplasm of cervix (principal); R87.619 Unspecified abnormal cytological findings in specimens from cervix uteri
CPT/HCPCS: 87624; 88175; G0145

== ENCOUNTER 2024-11-06 07:59 | Day surgery (SDC) | payer OTHER, SELFPAY ==
--- NOTE | 2024-10-28 08:53 | EKG12_ITS ---
Test Reason : PREOP Blood Pressure : */* mmHG Vent. Rate : 63 BPM Atrial Rate : 63 BPM P-R Int : 162 ms QRS Dur : 104 ms QT Int : 452 ms P-R-T Axes : -6 -49 10 degrees QTcB Int : 462 ms Normal sinus rhythm Left anterior fascicular block Abnormal ECG Confirmed by Pawan Still ([id number]), technical editor SARA SUTTON ([id number]) on 10/29/2024 7:12:34 AM Referred By: Jeet Roberts Confirmed By: Pawan Still
--- NOTE | 2024-10-29 14:58 | PAT.ANE_ITS ---
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 When Was Last Pacemaker Check QUESTION #4 FULL TEXT: You/Your Family Experience fever (hyperthermia) with Anesthesia Last Oral Intake Last Oral intake: Last Oral Intake NPO since Meds taken in AM with sips of water? 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 - drafter assistant: PONV - drafter assistant Female Yes 10/23/24 09:04 HX of Motion Sickness Yes 10/23/24 09:04 HX of N/V After Surgery Yes 10/23/24 09:04 Non-Smoker Yes 10/23/24 09:04 Duration of Surgery greater Yes 10/23/24 09:04 than 60 minutes Number of Risk Factors 5 10/23/24 09:04 PONV Score Severe Risk 10/23/24 09:04 Height & Weight Height & Weight: Anesthesia: Height & Weight Height 5 ft 6 in 10/23/24 09:53 Weight: 98.43 kg 10/23/24 09:53 Respiratory Assessment Respiratory Assessment - drafter assistant: Respiratory Tract Infection Hx - drafter assistant Hx Respiratory Tract Infection No 10/23/24 09:04 STOP Sleep Apnea STOP Sleep Apnea - drafter assistant: STOP Sleep Apnea - drafter assistant Hx Hypertension No 10/23/24 09:04 Hx Sleep Apnea No 10/23/24 09:04 CPAP No 10/23/24 09:04 BIPAP No 10/23/24 09:04 Do you snore loudly (louder No 10/23/24 09:04 than talking or can be heard Do you often feel tired/ No 10/23/24 09:04 fatigued/ sleepy during daytime? Has anyone observed you stop No 10/23/24 09:04 breathing during sleep? STOP Results Negative 10/23/24 09:04 QUESTION #5 FULL TEXT : Do you snore loudly (louder than talking or can be heard through closed doors)? Tobacco Use History Tobacco Use History - drafter assistant: Tobacco Use History - drafter assistant Tobacco Use Smoking Status Never smoker 10/23/24 09:04 Hx Tobacco Use No 10/23/24 09:04 Years Smoking Packs Smoked per Day Smoking Cessation Date was within the last 15 years Hx Smoking Cessation Date Hx Smoking Cessation Counseling Hematologic Medial History Hematologic Hx - drafter assistant: Hematologic Medical Hx - rheumatologist Hx of Blood Transfusion No 10/23/24 09:04 Hx of Transfusion in last 3 No 10/23/24 09:04 Months Date of Last Transfusion (if within last 3 months) Ever experience any problems No 10/23/24 09:04 with transfusion(s)? Specify any problems Hx of Preganancy in last 3 No 10/23/24 09:04 Months Nurse Filling Out Transfusion VCHRISTIN 10/23/24 09:04 & Questions: Date: 10/23/24 10/23/24 09:04 Time: 09:10/23/24 09:04 Patient unable to answer at this time (ie. confused, unrespo /Reproduction History /Reproductive History - drafter assistant: /Reproductive Hx- drafter assistant Hx Now No 10/23/24 09:04 Gestational Age (in weeks): EDC: Hx Hx Para Hx Section SAB No 10/23/24 09:04 Active Medications Active Medications: Current Medications Generic Name Dose Route Start Last Admin Trade Name Freq PRN Reason Stop Dose Admin Indocyanine Green 3.75 mg/ N/A 1.5 mls @ 999 mls/hr 11/06/24 10:00 IV 11/06/24 10:01 PREOP ONE [facility] Medical History (Updated 10/23/24 @ 09:03 by Noelle Palma) Post-menopausal Right sided abdominal pain Wears glasses Wears contact lenses History of steroid therapy Thyroid disease Injury of head and neck Non-smoker History of edema History of echocardiogram Depression with anxiety Goiter Home Medications ?Medication ?Instructions ?Recorded ?Last Taken ?Type venlafaxine 75 mg capsule,extended 75 mg PO DAILY #30 caps 05/30/24 08/03/24 Rx release 24 hr cholecalciferol (vitamin D3) 50 50 mcg PO DAILY 08/03/24 History mcg (2,000 unit) capsule levothyroxine 75 mcg tablet 75 mcg PO DAILY 07/31/24 0 08/04/24 History Allergy/AdvReac Type Severity Reaction Status Date / Time Penicillins AdvReac Rash Verified 10/23/24 09:00 Sulfa (Sulfonamide AdvReac Rash Verified 10/23/24 09:00 Antibiotics) Family History Grandmother Breast cancer Grandfather Diabetes Surgical History Hx of colonoscopy History of endometrial ablation S/P dilation and curettage S/P gastric surgery Status post breast reduction Social History Smoking Status: Never smoker alcohol intake: current details: occasionally substance use type: does not use caffeine: Yes what type of physical activity do you participate in: walking frequency: 3-4 times per week seatbelt use: always do you feel safe at home: Yes additional social history: Remarried to [employer]! 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 [employer]: Pertinent Findings Pertinent Findings EKG Perinent findings: EKG 10/28/2024. Normal sinus rhythm. Left anterior fascicular block. Echo (EF%) pertinent findings: Echo 02/07/2023. Normal LV size. EF 50%. There is mild global hypokinesis of the left ventricle. Normal RV size. Recommendation Anesthesia Recommendation Anesthesia recommendation: OPTIMIZED for anesthesia
[2024-11-06] VITALS (9 sets, daily range): BP systolic 131–152; BP diastolic 69–113; PULSE 67–87; RESP 16–17; TEMP 36.1–36.5; O2SAT 94–99; BMI 35.6
[2024-11-06] MEDS: Lactated Ringers 1,000 ML 15 ML IV (08:29)
[2024-11-06] MEDS: INDOCYANINE GREEN 3.75 MG in Syringe 1.5 ML 999 MG IV (08:30)
--- NOTE | 2024-11-06 08:42 | PRE.ANES_ITS ---
ASA Classification* ASA Classification ASA Classification: 2 Assessment & Plan Anesthesia* Anesthesia Assessment Anesthesia Assessment: Discussed sedation and/or anesthesia options, risks, benefits, and alternatives with patient/parents/legal guardian/POA. Questions invited. The patient/parents/legal guardian/POA seems to understand and agrees to proceed with anesthesia plan. Reviewed the physical assessment, medical history, allergy history and patient home medications list prior to surgery/procedure/anesthetic and documented any changes. Performed airway and anesthesia risk assessments. Anesthesia Type Anesthesia Type: General History Source History Obtained from:: Patient and Chart Anesthesia Focused Assessment* Temperature: 97.6 F Pulse Rate: 78 Blood Pressure: 139/73 Respiratory Rate: 17 Pulse Ox: 97 Oxygen Delivery Method: Room Air Airway Assessment Mouth opens: >3 cm Mallampati Score: III Teeth Condition: Caps/Crowns (Patient has several crowns. They are tight.) and Implants (Patient has several implants. They are tight.) Neck Range of motion (ROM): Limited ROM (Slight Decrease) Labs Anesthesia Preop lab: CBC WBC, (4.4-11.0) 8.4 K/mm3 08/20/24, 21:50 RBC, (4.2-5.4) 4.68 M/mm3 08/20/24, 21:50 Hgb, (12.0-15.0) 13.0 g/dL 08/20/24, 21:50 Hct, (37-47) 40.9 % 08/20/24, 21:50 Plt Count, (150-450) 330 K/mm3 08/20/24, 21:50 CHEMISTRY Potassium, (3.3-5.1) 4.1 mmol/L 08/20/24, 21:50 Sodium, (133-145) 140 mmol/L 08/20/24, 21:50 BUN, (4-19) 21 mg/dL H 08/20/24, 21:50 Creatinine, (0.70-1.20) 0.74 mg/dL 08/20/24, 21:50 Glucose, (70-99) 100 mg/dL H 08/20/24, 21:50 TSH, (0.300-4.200) 3.390 uIU/mL 10/28/24, 09:11 COAG Pre-Assessment Diagnosis/Proposed Procedure Planned Operative Procedure(s): Robotic Cholecystectomy Anesthesia History 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 When Was Last Pacemaker Check QUESTION #4 FULL TEXT: You/Your Family Experience fever (hyperthermia) with Anesthesia Last Oral Intake Last Oral intake: Last Oral Intake NPO since 00:00 11/06/24 08:26 Meds taken in AM with sips of No 11/06/24 08:26 water? 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 Female Yes 10/23/24 09:04 HX of Motion Sickness Yes 10/23/24 09:04 HX of N/V After Surgery Yes 10/23/24 09:04 Non-Smoker Yes 10/23/24 09:04 Duration of Surgery greater Yes 10/23/24 09:04 than 60 minutes Number of Risk Factors 5 10/23/24 09:04 PONV Score Severe Risk 10/23/24 09:04 Height & Weight Height & Weight: Anesthesia: Height & Weight Height 5 ft 6 in 11/06/24 08:26 Weight: 100 kg 11/06/24 08:26 Body Mass Index (BMI) 35.6 11/06/24 08:26 Respiratory Assessment Respiratory Assessment - centrifugal casting machine operator: Respiratory Tract Infection Hx - centrifugal casting machine operator Hx Respiratory Tract Infection No 10/23/24 09:04 STOP Sleep Apnea STOP Sleep Apnea - centrifugal casting machine operator: STOP Sleep Apnea - centrifugal casting machine operator Hx Hypertension No 10/23/24 09:04 Hx Sleep Apnea No 10/23/24 09:04 CPAP No 10/23/24 09:04 BIPAP No 10/23/24 09:04 Do you snore loudly (louder No 10/23/24 09:04 than talking or can be heard Do you often feel tired/ No 10/23/24 09:04 fatigued/ sleepy during daytime? Has anyone observed you stop No 10/23/24 09:04 breathing during sleep? STOP Results Negative 10/23/24 09:04 QUESTION #5 FULL TEXT : Do you snore loudly (louder than talking or can be heard through closed doors)? Tobacco Use History Tobacco Use History - centrifugal casting machine operator: Tobacco Use History - centrifugal casting machine operator Tobacco Use Smoking Status Never smoker 10/23/24 09:04 Hx Tobacco Use No 10/23/24 09:04 Years Smoking Packs Smoked per Day Smoking Cessation Date was within the last 15 years Hx Smoking Cessation Date Hx Smoking Cessation Counseling Hematologic Medial History Hematologic Hx - centrifugal casting machine operator: Hematologic Medical Hx - doughnut icer Hx of Blood Transfusion No 10/23/24 09:04 Hx of Transfusion in last 3 No 10/23/24 09:04 Months Date of Last Transfusion (if within last 3 months) Ever experience any problems No 10/23/24 09:04 with transfusion(s)? Specify any problems Hx of Preganancy in last 3 No 10/23/24 09:04 Months Nurse Filling Out Transfusion VCHRISTIN 10/23/24 09:04 & Questions: Date: 10/23/24 10/23/24 09:04 Time: 09:10/23/24 09:04 Patient unable to answer at this time (ie. 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 operator: /Reproductive Hx- centrifugal casting machine operator Hx Now No 10/23/24 09:04 Gestational Age (in weeks): EDC: Hx Hx Para Hx Section SAB No 10/23/24 09:04 Active Medications Active Medications: Current Medications Generic Name Dose Route Start Last Admin Trade Name Freq PRN Reason Stop Dose Admin Indocyanine Green 3.75 mg/ N/A 1.5 mls @ 999 mls/hr 11/06/24 10:00 11/06/24 08:30 IV 11/06/24 10:01 999 mls/hr PREOP ONE Administration Lactated Ringer's 1,000 mls @ 15 mls/hr 11/06/24 08:15 11/06/24 08:29 IV 15 mls/hr .Q48H SUHKDEV Administration PFSH Medical History Post-menopausal Right sided abdominal pain Wears glasses Wears contact lenses History of steroid therapy Thyroid disease Injury of head and neck Non-smoker History of edema History of echocardiogram Depression with anxiety Goiter Home Medications ?Medication ?Instructions ?Recorded ?Last Taken ?Type venlafaxine 75 mg capsule,extended 75 mg PO DAILY #30 caps 05/30/24 11/05/24 Rx release 24 hr cholecalciferol (vitamin D3) 50 50 mcg PO DAILY 11/05/24 History mcg (2,000 unit) capsule levothyroxine 75 mcg tablet 75 mcg PO DAILY 07/31/24 0 11/05/24 History Allergy/AdvReac Type Severity Reaction Status Date / Time Penicillins AdvReac Rash Verified 11/06/24 08:24 Sulfa (Sulfonamide AdvReac Rash Verified 11/06/24 08:24 Antibiotics) Family History Grandmother Breast cancer Grandfather Diabetes Surgical History Hx of colonoscopy History of endometrial ablation S/P dilation and curettage S/P gastric surgery Status post breast reduction Social History Smoking Status: Never smoker alcohol intake: current details: occasionally substance use type: does not use caffeine: Yes what type of physical activity do you participate in: walking frequency: 3-4 times per week seatbelt use: always do you feel safe at home: Yes additional social history: Remarried to Rich! 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 Review of Systems (Anesthesia) ROS Narrative System reviewed and no additional complaints, except as documented.
--- NOTE | 2024-11-06 09:06 | PCM.HP.STD ---
HPI - General General Date of Admission: 11/06/24 Date of Service: 11/06/24 Chief Complaint: Biliary dyskinesia HPI Narrative AFLONSO VERDUGO, is a 64 F who presents for elective robotic cholecystectomy. She was recently seen from my office with complaints of right upper quadrant pain and nausea. She had a HIDA scan that showed an ejection fraction of 8%. Although her symptoms were not completely typical for biliary colic, I did feel that this more than likely did represent symptoms consistent with biliary colic and so I did offer her the option of surgery. We discussed the details of the planned procedure including the risk benefits and alternatives. And she wished to proceed. [facility] Medical History Post-menopausal Right sided abdominal pain Wears glasses Wears contact lenses History of steroid therapy Thyroid disease Injury of head and neck Non-smoker History of edema History of echocardiogram Depression with anxiety Goiter Home Medications ?Medication ?Instructions ?Recorded ?Last Taken ?Type venlafaxine 75 mg capsule,extended 75 mg PO DAILY #30 caps 05/30/24 11/05/24 Rx release 24 hr cholecalciferol (vitamin D3) 50 50 mcg PO DAILY 07/31/24 11/05/24 History mcg (2,000 unit) capsule levothyroxine 75 mcg tablet 75 mcg PO DAILY 07/31/24 11/05/24 History Allergy/AdvReac Type Severity Reaction Status Date / Time Penicillins AdvReac Rash Verified 11/06/24 08:24 Sulfa (Sulfonamide AdvReac Rash Verified 11/06/24 08:24 Antibiotics) Family History Grandmother Breast cancer Grandfather Diabetes Surgical History Hx of colonoscopy History of endometrial ablation S/P dilation and curettage S/P gastric surgery Status post breast reduction Social History Smoking Status: Never smoker alcohol intake: current details: occasionally substance use type: does not use caffeine: Yes what type of physical activity do you participate in: walking frequency: 3-4 times per week seatbelt use: always do you feel safe at home: Yes additional social history: Remarried to Rich! 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 [employer] Sign[employer] Vital Signs: 11/06/24 08:26 11/06/24 08:26 11/06/24 08:52 Temperature 97.6 F L 97.6 F L Temperature Source Temporal Pulse Rate 78 78 Respiratory Rate 17 17 Respiratory Pattern Normal Blood Pressure 139/73 H 139/73 H Blood Pressure Mean 95 Blood Pressure Source Monitor Blood Pressure Position Semi-Fowlers Blood Pressure Location Left Arm Pulse Ox 97 97 Oxygen Delivery Method Room Air Room Air Weight Weight: 220 lb 7.396 oz Body Mass Index (BMI) 35.6 Physical Exam Const alert and oriented x3 Assessment & Plan Assessment/Plan (1) Biliary dyskinesia: PLAN: Plan The patient is a 64-year-old female with biliary dyskinesia. I have offered her a robotic cholecystectomy. Again we discussed the details of the procedure as well as risks benefits and alternatives. She wishes to proceed. Surgery will begin momentarily
[2024-11-06] MEDS: Lidocaine 1% (5 ml sdv) 5 ML Vial IV (09:29)
--- NOTE | 2024-11-06 09:30 | GALL_PTH ---
PATIENT: ALFONSO [place] [facility] [id number] AGE/SX: 64/F ROOM: RE11/06/[address]: Dr. Jeet Roberts MD : 1960 BED: DIS: 11/06/2024 SPEC #: [id number] RECD: 11/06/24 11:46 STATUS: CASS REJenny #: [id number] MATA: 11/06/24 09:[address]: Jeet Roberts DEPT: SURGICAL PATHOLOGY RECD BY: Idris Solares ENTERED: 11/06/24 12:27 SP TYPE: PATTY HARVEY DR: Dr. Kris Oviedo MD No Primary Care Phys Tissues: A - Gallbladder, NOS Procedures: Surgery Specimen Level III HEADER OPERATION: Robotic cholecystectomy PRE-OP DIAGNOSIS: Biliary dyskinesia TISSUE SUBMITTED: A- Gallbladder MICROSCOPIC DIAGNOSIS A. Gallbladder, robotic cholecystectomy: * Cholelithiasis, cholesterolosis. MICROSCOPIC DESCRIPTION Slides are reviewed. GROSS DESCRIPTION A. Received in formalin labeled with the patient's name and date of . Designated as gallbladder is a 9.1 x 3.3 x 2.8 cm pink-purple to green, intact gallbladder with attached patent cystic duct (inked black, shaved). A lymph node is not present. Opening reveals yellow-green, tenacious bile and 2 irregular, smooth, yellow choleliths, averaging 1.2 cm. The mucosa is dumont-pink and granular with focal ulcerations and a maximum wall thickness of 0.2 cm. Cholesterolosis is present. Community Recreation Coordinator sections are submitted in 1 cassette. MT 11/06/2024 CPT:[id number]
[2024-11-06] MEDS: fentaNYL 100 MCG/2 ML Ampul 200 MCG IV (10:07)
[2024-11-06] MEDS: Bupiv/Epi 0.25% 30 ML Vial (10:20)
--- NOTE | 2024-11-06 10:39 | PCM.POST.ANE ---
Anesthesia: Postop Eval I Current Vital Signs Temperature: 97.5 F Pulse Rate: 87 Blood Pressure: 152/113 Respiratory Rate: 16 Pulse Ox: 96 Oxygen Delivery Method: Room Air Assessment Airway patent: Yes Spontaneous unlabored respirations: Yes Mental status: Awake and Calm nausea: No Vomiting: No Anesthesia Complication: No Fluid Hydration Crystalloid volume administer (ml): 900 Total IV fluid infused: 900 Progress Note Anesthesia document: Postop Eval 1 completed: Yes
--- NOTE | 2024-11-06 10:43 | DCINST_ITS ---
Discharge Instructions Diet Discharge Diet: Light diet - advance as tolerated Activity Discharge Activity: Return to Normal Activity and May Shower May shower in (days): 1 Ice area for (Minutes): 30 Lifting Restrictions: No lifting pushing or pulling more than 20 pounds for 3 to 4 weeks Dressing / Incision Call your doctor if your incision/area has: Continuous Slow Oozing, Sudden Increased Bleeding, Increased Pain/ Swelling, Increased Redness, Foul Smelling Discharge and Swelling at the incision site Call your doctor if you observe: Fever of 101 or Higher Cleanse incision/area with: Soap & Water Follow Up Care Please Follow Up With: Jeet Roberts MD When: 2 weeks. Please call office to schedule appointment. Test Results: Test results from this visit will be discussed in further detail at your follow- up appointment, if applicable. Discharge Plan Admission Primary Reason for Your Visit: Robotic cholecystectomy Attending Provider: eJet Roberts Primary Care Provider: Care Physician,No Primary Consulting Providers: Kris Oviedo Instructions Print Language: Japanese Discharge Orders/Prescriptions Prescriptions: New oxycodone 5 mg capsule 5 mg PO Q8H PRN (Reason: pain) 4 Days Qty: 12 0RF Continued venlafaxine 75 mg capsule,extended release 24hr 75 mg PO DAILY Qty: 30 12RF levothyroxine 75 mcg tablet 75 mcg PO DAILY cholecalciferol (vitamin D3) 50 mcg (2,000 unit) capsule 50 mcg PO DAILY Referrals / Follow Up: Care Physician,No Primary [Primary Care Provider, Medical] Disposition Disposition (needs filled in before D/C Order can be placed): Home, Self Care
--- NOTE | 2024-11-06 10:47 | OP.PCM_ITS ---
Procedures Digestive 40xxx-49xxx: [id number] Laparo cholecystectomy/graph Operative Report (Standard) Operative Information Date of Procedure: 11/06/24 Pre-Operative Diagnosis: Biliary dyskinesia Post-Operative Diagnosis: Biliary dyskinesia Surgery/Procedure Performed: Robotic cholecystectomy with ICG cholangiograms hospital receptionist: Yes Datawarehouse Developer: Rosey Benton Tasks completed by cutting table operator first: Closing, Trocar and Other Additional social service assistant?: No Type of Anesthesia: General and Local RN Documented Start/Stop Times: Operation Date: 11/06/24 09:30 Case Time Into Pre-Op 11/06/24 08:04 Out of Pre-Op 11/06/24 09:19 Anesthesia Start 11/06/24 09:24 Into Room 11/06/24 09:24 Procedure Start 11/06/24 09:47 Procedure End 11/06/24 10:33 Anesthesia End 11/06/24 10:36 Out of Room 11/06/24 10:36 Into Recovery 11/06/24 10:37 Procedure Start Time: 09:47 Procedure Stop Time: 10:33 Select all DRAINS/GRAFTS/IMPLANTS that apply: None Special Medications: ICG preop Estimated Blood Loss: 5 mL Specimen collected: Yes Description of specimen(s) removed: Gallbladder Description of surgery: The patient is a 64-year-old female who was seen through the office recently with complaints of nausea and right upper quadrant pain. She has undergone a workup including CT, ultrasound and HIDA scan. HIDA scan showed an ejection fraction of 8%. Her ultrasound was essentially normal however her symptoms seem consistent with biliary colic. I offered her a robotic cholecystectomy as treatment. We discussed the details of the planned procedure and she wished to proceed. She was brought to the operating room today following informed consent. ICG was given preoperatively. She was placed supine on the operative table with arms initially outstretched and arm boards. A general endotracheal anesthesia was induced. Once adequately anesthetized, the arms were comfortably tucked at her sides. The abdomen was then prepped and draped in the usual sterile manner. An 8 mm incision was made just below the umbilicus to which a 5 mm trocar was placed optically. This was placed without incident. The abdomen is then fully insufflated with CO2 gas. A 5 mm 0 degree scope was inserted. There were no signs of bowel or vascular injury. Next 3 additional trocars were placed under direct visualization. These were 8 mm robotic trocars. 1 was placed on the right side of the abdomen. Another was placed on the left side of the abdomen at the same level as the umbilicus and then finally another trocar was placed in the left upper quadrant. The original 5 mm trocar was also replaced with an 8 mm robotic trocar. The patient was then placed in reverse Trendelenburg positioning with some roll to the left. The da Brittney robot was then brought onto the operative field. The robot was appropriately docked and the instruments were inserted as well. Once in place, the gallbladder was visualized. It appeared reasonably normal in its appearance. It was reflected in a cephalad direction. Next using electrocautery connected to an L-hook, the peritoneum on either side of the gallbladder was dissected in order to improve mobility. The region of the infundibulum was then dissected. ICG cholangiograms were used numerous times through out the dissection process. The cystic duct and cystic artery were both dissected out circumferentially. The lower third of the gallbladder was dissected off of the undersurface of the liver thus allowing the establishment of a critical view of safety such that 2 and only 2 structures were seen going to and from the gallbladder. There is being the cystic duct and cystic artery. ICG cholangiogram was again used to verify the we had correctly identified the cystic duct. Next both structures were clipped proximally and distally and then transected. The gallbladder was then dissected off the gallbladder fossa. Once the gallbladder was free was placed into a bag and brought out through the umbilical trocar site. A fascial closure device was then used to close the fascia at this site to prevent future hernias. The remaining trocars were opened up and insufflation was allowed to escape. They were removed without difficulty. Local anesthetic was injected into each of the incisions. The incisions were then closed with 4-0 Vicryl. Skin glue was applied as dressing. She was awakened from anesthesia and taken recovery in good condition. Surgical Findings: See operative note Complications Complications: No Admit VTE Documentation VTE Present on Admission: No VTE Mechan Device Prophylaxis: SCD's VTE Pharm Prophylaxis ordered?: No Reason prophylaxis not ordered: Treatment Not Indicated
--- NOTE | 2024-11-06 12:58 | POSTOPAN2_ITS ---
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 ADVISOR.[email or web address] Spontaneous unlabored Yes 11/06/24 10:40 PUBLIC HEALTH ADVISOR.MDOT respirations Mental status Awake,Calm 11/06/24 10:40 PUBLIC HEALTH ADVISOR.MDOT nausea No 11/06/24 10:40 PUBLIC HEALTH ADVISOR.MDOT Vomiting No 11/06/24 10:40 PUBLIC HEALTH ADVISOR.MDOT Anesthesia Postop Eval I: Fluid Summary Crystalloid volume administer 900 11/06/24 10:40 PUBLIC HEALTH ADVISOR.MDOT (ml) Colloids volume administered ( ml) Blood Product volume administered (ml) Total IV fluid infused 900 11/06/24 10:40 PUBLIC HEALTH ADVISOR.MDOT Anesthesia Postop Eval I: Summary Notes Anesthesia Complication No 11/06/24 10:40 PUBLIC HEALTH ADVISOR.MDOT Anesthesia Complication Comment: Post-operative progress note Anesthesia: Postop Eval II Evaluation Mental status: Awake and Calm Pain Level: 0 nausea: No Vomiting: No Complications Anesthesia Complication: No
--- NOTE | 2024-11-06 12:58 | PCM.POSTANE2 ---
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 [email or web address] Spontaneous unlabored Yes 11/06/24 10:40 TURF MANAGER.MDOT respirations Mental status Awake,Calm 11/06/24 10:40 TURF MANAGER.MDOT nausea No 11/06/24 10:40 TURF MANAGER.MDOT Vomiting No 11/06/24 10:40 TURF MANAGER.MDOT Anesthesia Postop Eval I: Fluid Summary Crystalloid volume administer 900 11/06/24 10:40 TURF MANAGER.MDOT (ml) Colloids volume administered ( ml) Blood Product volume administered (ml) Total IV fluid infused 900 11/06/24 10:40 TURF MANAGER.MDOT Anesthesia Postop Eval I: Summary Notes Anesthesia Complication No 11/06/24 10:40 TURF MANAGER.MDOT Anesthesia Complication Comment: Post-operative progress note Anesthesia: Postop Eval II Evaluation Mental status: Awake and Calm Pain Level: 0 nausea: No Vomiting: No Complications Anesthesia Complication: No
== END 2024-11-06 12:55 | disposition home or self-care (01) ==
LOC: SDC 08:02 → AC 08:02
PROVIDERS: Anesthesiology; Referring Provider Surgery; Visit Provider Surgery
PROC: 0FT44ZZ Resection of Gallbladder, Percutaneous Endoscopic Approach (ICD-10-PCS; CPT 47562; principal; 2024-11-06 09:10)
DX: K81.1 Chronic cholecystitis (principal); E07.9 Disorder of thyroid, unspecified; F41.9 Anxiety disorder, unspecified; F32.A Depression, unspecified; Z79.899 Other long term (current) drug therapy; Z79.890 Hormone replacement therapy
CPT/HCPCS: 47563; S2900; 00790; 36415; 84443; 88304; 93005; J2405

== ENCOUNTER → 2024-12-08 | Outpatient (CLI) | payer OTHER, SELFPAY ==
--- NOTE | 2024-12-08 14:50 | CER_PTH ---
PATIENT: ALFONSO VERDUGO LOC: [facility] U#:[id number] AGE/SX: 64/F ROOM: RE12/08/[address]: Dr. Rose Marie Brush MD : 1960 BED: DIS: 12/08/2024 SPEC #: [id number] RECD: 12/08/24 18:10 STATUS: CASS REJenny #: [id number] MATA: 12/08/24 14:[address]: Rose Marie Brush DEPT: SURGICAL PATHOLOGY RECD BY: Idris Solares ENTERED: 12/09/24 10:14 SP TYPE: CERV OTHR DR: No Primary Care Phys Tissues: A - Uterine cervix, NOS Procedures: Immunohistochemical Stains Surgery Specimen Level IV HEADER OPERATION: Colposcopy PRE-OP DIAGNOSIS: Abnormal PAP smear of cervix TISSUE SUBMITTED: A- 7o'clock, B- ECC MICROSCOPIC DIAGNOSIS A. Cervix, 7:00, colposcopy: * Squamous epithelium and endocervical glandular tissue, negative for intraepithelial lesion (See note) Note: The p16 immunostain is negative supporting the diagnosis. B. Endocervix, curttage: * Fragments of superficial squamous epithelium and endocervical glandular tissue, negative for intraepithelial lesion MICROSCOPIC DESCRIPTION Slides are reviewed. GROSS DESCRIPTION Received in 2 formalin containers labeled with the patient's name and date of . Designated as: A. Biopsy 7 o'clock are scant flecks of apparent tissue, 0.5 x 0.4 x <0.1 cm in aggregate. Entirely submitted in 1 cassette. Entirety of the specimen unlikely to survive processing. B. ECC is a 1.4 x 1.3 x 0.1 cm aggregate of mucoid material with a tyrone of possible tissue. Entirely submitted in 1 cassette. Entirety of the specimen unlikely to survive processing. AR 12/09/2024PT:[id number]
--- NOTE | 2024-12-08 14:50 | CER_PTH ---
PATIENT: ALFONSO VERDUGO LOC: [facility] U#:[id number] AGE/SX: 64/F ROOM: RE12/08/[address]: Dr. Rose Marie Brush MD : 1960 BED: DIS: 12/08/2024 SPEC #: [id number] RECD: 12/08/24 18:10 STATUS: CASS REJenny #: [id number] MATA: 12/08/24 14:[address]: Rose Marie Brush DEPT: SURGICAL PATHOLOGY RECD BY: Idris Solares ENTERED: 12/09/24 10:14 SP TYPE: CERV OTHR DR: No Primary Care Phys Tissues: A - Uterine cervix, NOS Procedures: Immunohistochemical Stains Surgery Specimen Level IV HEADER OPERATION: Colposcopy PRE-OP DIAGNOSIS: Abnormal PAP smear of cervix TISSUE SUBMITTED: A- 7o'clock, B- ECC MICROSCOPIC DIAGNOSIS A. Cervix, 7:00, colposcopy: * Squamous epithelium and endocervical glandular tissue, negative for intraepithelial lesion (See note) Note: The p16 immunostain is negative supporting the diagnosis. B. Endocervix, curttage: * Fragments of superficial squamous epithelium and endocervical glandular tissue, negative for intraepithelial lesion MICROSCOPIC DESCRIPTION Slides are reviewed. GROSS DESCRIPTION Received in 2 formalin containers labeled with the patient's name and date of . Designated as: A. Biopsy 7 o'clock are scant flecks of apparent tissue, 0.5 x 0.4 x <0.1 cm in aggregate. Entirely submitted in 1 cassette. Entirety of the specimen unlikely to survive processing. B. ECC is a 1.4 x 1.3 x 0.1 cm aggregate of mucoid material with a tyrone of possible tissue. Entirely submitted in 1 cassette. Entirety of the specimen unlikely to survive processing. ME 12/09/2024PT:[id number]
== END | disposition home or self-care (01) ==
PROVIDERS: Referring Provider Obstetrics & Gynecology; Visit Provider Obstetrics & Gynecology
DX: R87.619 Unspecified abnormal cytological findings in specimens from cervix uteri (principal)
CPT/HCPCS: 88305; 88342

== ENCOUNTER → 2025-01-01 | Outpatient (CLI) | payer OTHER, SELFPAY ==
--- NOTE | 2025-01-01 11:00 | BI_ITS ---
EXAM: SCRN MAMM (CAD)W/PRISCILA BILAT DATE: 01/01/2025 CLINICAL HISTORY: F, Age 64 y/o , SCREENING MAMMOGRAM Grandmother with breast cancer. History of prior bilateral breast reduction surgery. TECHNIQUE: Procedure Code: [id number] Modality: MG Procedure: SCRN MAMM (CAD)W/PRISCILA BILAT COMPARISON: Prior exam(s) dated December 11, 2023.. FINDINGS: TISSUE DENSITY: The breasts are heterogeneously dense, which may obscure small masses. Bilateral Breast Mammographic Findings: No significant masses, calcifications or other abnormalities are identified. Stable calcified nodule in the retroareolar region of the right breast suggestive of calcified fibroadenoma. Stable bilateral benign-appearing axillary lymph nodes. No suspicious masses, areas of developing architectural distortion, or suspicious calcifications. There has been no significant interval change. BI/SCRN MAMM (CAD)W/PRISCILA BILAT IMPRESSION: Stable bilateral screening mammogram. OVERALL FINAL ASSESSMENT BI-RADS 2: BENIGN RECOMMENDATION: Routine annual follow-up in 1 Year Additional Recommendation none A letter with findings and recommendations will be mailed to the patient. Reading Location: [place] [id number]
== END | disposition home or self-care (01) ==
LOC: OPBI 10:55
PROVIDERS: Referring Provider Obstetrics & Gynecology; Visit Provider Obstetrics & Gynecology
DX: Z12.31 Encounter for screening mammogram for malignant neoplasm of breast (principal); Z80.3 Family history of malignant neoplasm of breast
CPT/HCPCS: 77063; 77067